=== PATIENT | male | born 1950 | race Caucasian/White ===

== ENCOUNTER 2019-11-03 22:18 | Observation (INO) | payer OTHER ==
--- OUTSIDE RECORDS SUMMARY | 2019-11-03 22:28 | XMS REPORT | Continuity of Care Document ---
:1950 Author Organization [employer] Care Team Providers Name Role Phone [employer] Unavailable Un available Problems Problem Status Onset Classification Date Comments Sourc e Date Reported SNF Active 02/20/[address] CHOLO Active 02/20/20 [facility] BILLING [address] [place] [address] MULTIPLE CLOSED Active 02/20/20 [place] LEFT SIDE RIBS [facility] FEVER Active 10/29/[address] LEFT CHEST SOFT Active 10/29/19 [facility] [place] TISSUE ABSCESS 15 [facility] EMPYEMA Active 10/13/[address] MULT RIB FX Active 09/20/[address] Multiple 02/24/2017 [facility] fractures of Medical ribs, left side, [address] initial encounter for closed fracture Diabetes Resolved Problem 02/24/2017 [facility] mellitus Medical (disorder) Center Hypertensive Resolved Problem 02/24/2017 [facility] as disorder, Medical systemic Center arterial (disorder) Final: 11/12/2014 [facility] MULTIPLE Active [facility] FRACTURES OF Medical RIBS, LEFT SIDE, [place] [place] [facility] [facility] EMPYEMA W/O Active [facility] FISTULA [facility] CELLULITIS NOS Active [facility] Medications Medication Details Route Status Patient Ordering Order Source Instructions Provider Date tramadol 50 mg = 1 tab, Active 02/21/ [place] hydrochloride 50 PO, Q6H, PRN 2016 Md dical MG Oral Tablet Pain, X 7 day, # Center 28 tab, 0 Refill(s) acetaminophen 1,000 mg = 2 Active 02/21/ [facility] [place] 500 mg oral tab, PO, Q6H, X 2017 Medi [place] tablet 7 day, # 56 tab, Center 0 Refill(s) atorvastatin Notes: (Same As: No Longer 02/21/ [facility] Lipitor) Active [address] [place] [address] tramadol 50 mg 50 mg, 1 tab, No Longer /07/ [facility] [place] oral tablet Route: PO, Drug Active 2016 [facility] [place] form: TAB, Q6H, Center Dosing Weight 102.273, kg, Start date: 02/20/17 18:00:00 CDT, Duration: 30 day, Stop date: 03/22/17 12:00:00 CDT heparin Notes: porcine [place]er [place] heparin Active 2017 [facility] Insulin regular 60 units) No Longer [place] WASTE: F/P - Active 2017 [facility] Black; E - Center Municipal Trash Bin Stable for 28 days at room temperature Expires in days from Da te Dextrose 50% 12.5 gm, 25 mL, No Longer H [place] Syringe Route: IVP, Drug Active 2016 Medical Form: INJ, Center Dosing Weight 102.273, kg, PRN, PRN Blood Glucose Results, Start date: 02/20/17 14:20:00 CDT, Duration: 30 day, Stop date: 03/22/17 14:19:00 CDT Glucagon 1 mg, Route: IM, No Longer [place] Drug form: Active 2016 Medical PDR/INJ, PRN, Center Dosing Weight 102.273, kg, PRN Blood Glucose Results, Start date: 02/20/17 14:20:00 CDT, Duration: 30 day, Stop date: 03/22/17 14:19:00 CDT Amlodipine Notes: (Same as: No Longer [place] Norvasc) Active 2017 [facility] Docusate Sodium Notes: (Same as: No Longer 02/20 [place] 100 MG Oral Colace) (Do Not Active 2016 [facility] blanquita Capsule Crush) Center Aspirin Notes: Take with [place] Long[place] food. Active 2017 Medical [place] sennosides, INTERMEDIATE Notes: (Same as: No Longer 02/20 [place] Senokot) Active 2017 Medical [place] pantoprazole 40 mg, PO, In[place] Daily, # 30 tab, 2017 [facility] 0 Refill(s) Center metoprolol Notes: (Same as: No Longer [place] tartrate Lopressor) Active 2017 [facility] [place] Acetaminophen Notes: Max [place] acetaminophen Active 2017 Medical 4000 mg/day (4 Center gm/day). (Same as: Tylenol Extra Strength) heparin Notes: porcine [place] Longer [place] heparin Active 2016 [facility] Center tramadol Notes: Not to [place] Long[place] hydrochloride 50 exceed Active 2016 Medical MG Oral Tablet 400mg/day. (Same Center As: Ultram) Insulin Lispro 60 units) No Longer [place] WASTE: F/P - Active 2016 Medical Black; E - Center Municipal Trash Bin Stable for 28 days at room temperature. Expires in days from Da te Dextrose 50% 25 gm, 50 mL, No Longer [place] Syringe Route: IVP, Drug Active 2016 Medical Form: INJ, Center Dosing Weight 102.273, kg, PRN, PRN Blood Glucose Results, Start date: 02/19/17 13:01:00 CDT, Duration: 30 day, Stop date: 03/21/17 13:00:00 CDT Glucagon 1 mg, Route: IM, No Longer [place] Drug form: Active 2016 Medical PDR/INJ, PRN, Center Dosing Weight 102.273, kg, PRN Blood Glucose Results, Start date: 02/19/17 13:01:00 CDT, Duration: 30 day, Stop date: 03/21/17 13:00:00 CDT Insulin Glargine 50 unit, SUB-Q, Active [place] 100 UNT/ML QAM, 0 Refill(s) 2016 [facility] Injectable Center Solution [Lantus] amLODIPine 10 mg 10 mg = 1 tab, Active [place] oral tablet PO, Daily, # 90 2017 [facility] blanquita tab, 1 Refill(s) [place] metoprolol 50 mg = 1 tab, Active [facility] [place] [facility] as tartrate 50 mg PO, BID, # 180 2017 Md dical oral tablet tab, 0 Refill(s) [facility] Hydralazine Notes: (Same as: No Longer [facility] Apresoline) Push Active 2016 Medical over 5 minutes Center Lovenox 30 mg, Route: Inactive [place] SUB-Q, Drug 2016 Medical form: INJ, Q12H, Center Dosing Weight 102.273, kg, Priority: STAT, Start date: 02/19/17 12:20:00 CDT, Duration: 30 day, Stop date: 03/21/17 9:00:00 CDT Oxycodone Notes: (Same as: No Longer [facility] Hydrochloride 5 Roxicodone) Active 2016 Medi [place] MG Oral Tablet Center Dilaudid Notes: Same as: Inactive [place] as Dilaudid 2017 [facility] NS (Bolus) IV 1,000 mL, 1,000 Inactive [place] ml/hr, Infuse 2017 Medical Over: 1 hr, Center Route: IV, 1,000, Drug form: INJ, ONCE, Priority: STAT, Dosing Weight 102.273 kg, Start date: 02/19/17 11:23:00 CDT, Duration: 1 doses or times, Stop date: 02/19/17 11:23:00 CDT Morphine Notes: (Same Inactive [facility] as:MORPhine 2017 Medical Sulfate) Center Zofryogesh Notes: (Same as: Inactive [place] Zofran) 2017 Medical MEDICATION WASTE Center Product Size: 4 mg Product Wasted: ___ mg iodixanol Notes: (Same as: Inactive [place] Visipaque). 2017 Medical WASTE: F/P - Center Black; E - Municipal Trash Bin Saline Flush Notes: Same as: No Longer [place] 0.9% BD Posiflush Active [facility] [place] tramadol Special Active [facility] hydrochloride 50 Instructions: 2014 edical MG Oral Tablet 1-2 tab PO Q6H Ce ntmali senna 8.6 mg 8.6 mg = 1 tab, Active [facility] oral tablet PO, Daily, 0 2014 Medical Refill(s) [place] POLYETHYLENE PO, Daily, 0 Active [place] as GLYCOL 3350 Refill(s) [address] [place] [address] Acetaminophen Special Active [facility] 325 MG / Instructions: 2014 Medical Hydrocodone not to exceed 8 Cent er Bitartrate 7.5 tablets/day MG Oral Tablet [[place] 7.5/325] gabapentin 300 600 mg = 2 cap, Active [place] MG Oral Capsule PO, Q8H, # 120 2014 edical cap, 0 Refill(s) Center PlasmaLyte A 1,000 mL, Rate: No Longer [facility] PH-7.4 1,000 mL 100 ml/hr, Active 2014 Medic al Infuse over: 10 Center hr, Route: IV, Dosing Weight 84.091 kg, Total Volume: 1,000, Start date: 11/05/14 0:01:00, Duration: 30 day, Stop date: 12/05/14 0:00:00 Tums Notes: (Same As: [place] Long[place] Tums) Calcium Active 2014 Medical Carbonate 500 mg Center = 200 mg elemental calcium Dose = mg calcium carbonate ( mg elemental calcium) Neutra-Phos Notes: (Same as: No Longer [facility] Neutra-Phos) Active 2014 Medical Each 1.25 gm pkt Center has 250mg phosphorous. Mag-Ox 400 Notes: (Same as: No Longer [facility] Mag-Ox 400) Active 2014 [facility] Magnesium oxide Center [id number] elemental magnesium Dose=____mg magnesium oxide (___mg elemental magnesium) Neutra-Phos 1 pkt, Route: No Longer [place] PO, Dosing Active 2014 Medical Weight 84.091, Center kg, BID-Meals, Start date: 11/03/14 8:00:00, Duration: 30 day, Stop date: 12/02/14 17:00:00 Morphine 2 mg, Route: Inactive [place] IVP, Q5Min, 2014 Medical Dosing Weight Center 84.091, kg, PRN Pain Score 4-6, Start date: 11/02/14 20:50:00, Duration: 5 doses or times, Stop date: Limited # of times Labetalol 10 mg, Route: Inactive [place] IVP, Q5Min, 2014 Medical Dosing Weight Center 84.091, kg, PRN Elevated BP, Start date: 11/02/14 20:50:00, Duration: 5 doses or times, Stop date: Limited # of times Ondansetron 4 mg, Route: Inactive [place] IVP, ONCE, 2014 Medical Dosing Weight Center 84.091, kg, PRN Nausea & Vomiting, Start date: 11/02/14 20:50:00 Naloxone 0.04 mg, Route: Inactive [place] IVP, Q2MIN, 2014 Medical Dosing Weight Center 84.091, kg, PRN Narcotic Reversal, Start date: 11/02/14 20:50:00, Duration: 8 doses or times, Stop date: Limited # of times Flumazenil 0.2 mg, Route: [place] IVP, PRN, Dosing 2014 Medical Weight 84.091, Center kg, PRN Benzodiazepine Reversal, Initial dose, Start date: 11/02/14 20:50:00, Duration: 30 day, Stop date: 12/02/14 20:49:00 Cefazolin 2 gm, Route: IV, Inactive [place] ONCE, Dosing 2014 Medical Weight 84.091, Center kg, Start date: 11/02/14 20:03:00, Duration: 1 doses or times, Stop date: 11/02/14 20:03:00 PlasmaLyte A 1,000 mL, Rate: Inactive [place] PH-7.4 1,000 mL 100 ml/hr, 2014 Medic al Infuse over: 10 Center hr, Route: IV, Dosing Weight 84.091 kg, Total Volume: 1,000, Start date: 11/02/14 0:01:00, Duration: 30 day, Stop date: 12/02/14 0:00:00 Ancef + Sodium Notes: (Same As: No Longer [place] Chloride 0.9% IV Ancef, Kefzol) Active 2014 Medical 100 mL Cefazolin FOR Center IV SET ONLY MEDICATION WASTE Product Size: 1000 mg Product Wasted: ___ mg sodium phosphate 15 mmol, 5 mL, Inactive [place] + Sodium Route: IVPB, 2014 Medical Chloride 0.9% IV ONCE, Dosing Ce nter 250 mL Weight 84.091, kg, Start date: 11/01/14 12:02:00, Stop date: 11/01/14 12:02:00 Magnesium 2 gm, 50 mL, Inactive [place] Sulfate Route: IVPB, 2014 Medical Drug form: INJ, Center Q2H, Dosing Weight 84.091, kg, Total dose = 4 gm, Start date: 11/01/14 10:00:00, Stop date: 11/01/14 13:59:00 sennosides, INTERMEDIATE 1 tab, Route: No Longer [place] PO, Drug Form: Active 2014 Medical TAB, Dosing Center Weight 84.091, kg, Daily, Start date: 11/01/14 9:00:00, Duration: 30 day, Stop date: 11/30/14 9:00:00 Bisacodyl Notes: (Same As: Inactive [place] Dulcolax, 2014 [facility] Bisco-Lax) Center Acetaminophen Notes: Same as No Longer [facility] 325 MG / [place] 325-7.5mg Active 2014 Medical Hydrocodone Do not exceed Cente r Bitartrate 7.5 4gm/day of MG Oral Tablet acetaminophen. [[place] 7.5/325] Acetaminophen Notes: Same as No Longer [facility] 325 MG / [place] 325-7.5mg Active 2014 Medical Hydrocodone Do not exceed Cente r Bitartrate 7.5 4gm/day of MG Oral Tablet acetaminophen. [[place] 7.5/325] magnesium 2 gm, 50 mL, Inactive [place] sulfate Route: IVPB2014 Medical Drug form: INJ, Center ONCE, Dosing Weight 84.091, kg, Total dose = 4 gm, Start date: 10/31/14 16:46:00, Stop date: 10/31/14 16:46:00 Magnesium 2 gm, 50 mL, Inactive [place] Sulfate Route: IVPB2014 Medical Drug form: INJ, Center Q2H, Dosing Weight 84.091, kg, Total dose = 4 gm, Start date: 10/31/14 10:00:00, Stop date: 10/31/14 13:59:00 Ondansetron Notes: (Same as: Inactive [facility] Zofran) 2014 Medical MEDICATION WASTE Center Product Size: 4 mg Product Wasted: ___ mg Naloxone Notes: Same as [place] Narcan [address] [place] [address] Hydromorphone Notes: Same as: Inactive [facility] Dilaudid 2014 [facility] Flumazenil Notes: (Same as: Inactive [place] Romazicon) 2015 Medical Center Meperidine 12.5 mg, Route: Inactive [place] IVP, Q30Min, 2014 Medical Dosing Weight Center 84.091, kg, PRN Other -See Comment, For shivering, Start date: 10/31/14 9:02:00, Duration: 2 doses or times, Stop date: Limited # of times Labetalol 10 mg, Route: Inactive [place] IVP, Q5Min, 2014 Medical Dosing Weight Center 84.091, kg, PRN Elevated BP, Start date: 10/31/14 9:02:00, Duration: 5 doses or times, Stop date: Limited # of times esmolol 10 mg, Route: Inactive [place] IVP, Q5Min, 2014 Medical Dosing Weight Center 84.091, kg, PRN Other -See Comment, Start date: 10/31/14 9:02:00, Duration: 5 doses or times, Stop date: Limited # of times Hydralazine Notes: (Same as: Inactive [place] Apresoline) Push 2014 Medical over 5 minutes Center micafungin Notes: Same as No Longer Let[place]ia barajas Mycamine Protect Active 2014 Medical from light Center MEDICATION WASTE Product Size: 100 mg Product Wasted: ___ mg sodium phosphate 30 mmol, 10 mL, Inactive [place] + Sodium Route: IVPB, 2014 Medical Chloride 0.9% IV ONCE, Dosing Ce nter 250 mL Weight 84.091, kg, Start date: 10/31/14 8:35:00, Stop date: 10/31/14 8:35:00 Calcium 2,000 mg, 20 mL, Inactive [place] as Gluconate Route: IVPB, 2014 Medical ONCE, Dosing Center Weight 84.091, kg, Start date: 10/31/14 8:34:00, Stop date: 10/31/14 8:34:00 sennosides, INTERMEDIATE Notes: (Same as: No Longer 10/30 [place] Senokot) Active 2014 Medical Center Vancomycin 2001 mg: infuse No Longer [place] over 2.5 hours Active 2014 Medical MEDICATION Center WASTE Product Size: 1000 mg Product Wasted: ___ mg Bisacodyl Notes: (Same As: No Longer [place] Dulcolax, Active 2014 Medical Bisco-Lax) Center Magnesium 2 gm, 50 mL, Inactive [place] Sulfate Route: IVPB2014 Medical Drug form: INJ, Center Q2H, Dosing Weight 84.091, kg, Total dose = 4 gm, Start date: 10/30/14 10:00:00, Stop date: 10/30/14 13:59:00 Calcium 1,000 mg, 10 mL, Inactive [place] Gluconate Route: IVPB, 2014 Medical ONCE, Dosing Center Weight 84.091, kg, Start date: 10/30/14 9:45:00, Stop date: 10/30/14 9:45:00 sodium phosphate 15 mmol, 5 mL, Inactive [place] + Sodium Route: IV2014 Medical Chloride 0.9% IV ONCE, Dosing Ce nter 250 mL Weight 84.091, kg, Start date: 10/30/14 9:44:00, Stop date: 10/30/14 9:44:00 PlasmaLyte A 1,000 mL, Rate: No Longer [facility] PH-7.4 1,000 mL 100 ml/hr, Active 2014 Medic al Infuse over: 10 Center hr, Route: IV, Dosing Weight 84.091 kg, Total Volume: 1,000, Start date: 10/30/14 0:01:00, Duration: 30 day, Stop date: 11/29/14 0:00:00 Lantus Notes: Same as No Longer [place] [facility] Lantus Solostar Active 2014 Medical PEN Do not hold Center insulin without contacting prescriber "single patient use only" Stable for 28 days at room temperature. Expires in days from Da te ferrous sulfate Notes: Give with No Longer 10/29 [place] food. "Do Not Active 2014 Medical Crush" Center Aspirin Notes: Take with [place] Longer [place] food. Active 2014 Medical [place] Docusate Sodium Notes: (Same as: No Longer 10/29 [place] 100 MG Oral Colace) (Do Not Active 2014 Medi [place] Capsule [Colace] Crush) Center Miralax Notes: Dissolve No Longer [place] as in 8 oz of water Active 2014 Medical or juice. (Same Center as: Miralax) quinapril 40 mg, Route: No Longer [place] as PO, Drug form: Active 2014 Medical TAB, Daily, Center Dosing Weight 84.091, kg, Start date: 10/29/14 9:00:00, Duration: 30 day, Stop date: 11/27/14 9:00:00 Altace Notes: (Same No Longer [place] as:Altace) Active 2014 Medical Center Dextrose 50% 12.5 gm, Route: Inactive [place] Syringe IVP, Dosing 2014 Medical Weight 84.091, Center kg, ONCE, Start date: 10/29/14 1:24:00, Stop date: 10/29/14 1:24:00 Ondansetron Notes: (Same as: Inactive [place] Zofran) 2014 Medical MEDICATION WASTE Center Product Size: 4 mg Product Wasted: ___ mg Naloxone Notes: Same as No Longer [place] Narcan Active 2014 [facility] Center Metoprolol Notes: (Same as: No Longer [place] Lopressor) Push Active 2014 [facility] over 2 minutes Center Hydromorphone Notes: Same as: No Longer [place] Dilaudid Active 2014 [facility] Center Flumazenil Notes: (Same as: No Longer [place] Romazicon) Active 2014 Medical Center Acetaminophen Notes: (Same as: No Longer [place] 325 MG / [place] 325/5) Active 2014 Medical Hydrocodone Center Bitartrate 5 MG Oral Tablet [[place] 5/325] gabapentin 600 Notes: (Same as: No Longer [facility] MG Oral Tablet Neurontin) Active 2014 Medica l Center Acetaminophen Notes: (Same as: No Longer [place] 325 MG / [place] 325/5) Do Active 2014 Medica l Hydrocodone not exceed Center Bitartrate 5 MG 4gm/day of Oral Tablet acetaminophen. [[place] 5/325] Tramadol Notes: Not to [place] exceed Active 2014 Medical 400mg/day. (Same Center As: Ultram) Flagyl Notes: (Same as: [place] Long[place] Flagyl) Avoid Active 2014 Medical alcohol. Center cefepime Notes: (Same As: No Longer [facility] [place] Maxipime) Active 2014 Medical MEDICATION WASTE Center Product Size: 1000 mg Product Wasted: ___ mg Vancomycin 2001 mg: infuse No Longer [place] over 2.5 hours Active 2014 Medical MEDICATION Center WASTE Product Size: 1000 mg Product Wasted: ___ mg atorvastatin Notes: (Same As: No Longer [facility] Lipitor) Active 2014 Medical Center Enoxaparin Notes: (Same as: No Longer [facility] Lovenox) Active 2014 Medical Center metoprolol Notes: (Same as: No Longer [facility] tartrate Lopressor) Active 2014 Medical Center Dilaudid Notes: (Same as: No Longer [facility] Dilaudid) Active 2014 Medical Center D5W 1/2NS + KCL Notes: PREMIX No Longer [place] 20mEq/L 1000ml IV - Do Not Active 2014 Medic al (Premix) 1000 mL [facility] Center PlasmaLyte A 1,000 mL, Rate: Inactive [place] PH-7.4 1000 mL 125 ml/hr, 2014 Medica l Infuse over: 8 Center hr, Route: IV, Dosing Weight 84.091 kg, Total Volume: 1,000, Start date: 10/28/14 20:35:00, Duration: 30 day, Stop date: 11/27/14 20:34:00 Insulin regular 60 units) No Longer [facility] Stable for 28 Active 2014 Medical days at room Center temperature Expires in days from Da te Dextrose 50% 12.5 gm, Route: Inactive [facility] Syringe IVP, Dosing 2014 Medical Weight 84.091, Center kg, ONCE, STAT, Start date: 10/28/14 20:29:00, Stop date: 10/28/14 20:29:00 D5NS 1000 mL 1,000 mL, Rate: Inactive [place] 100 ml/hr, 2014 Medical Infuse over: 10 Center hr, Route: IV, Dosing Weight 84.091 kg, Total Volume: 1,000, Start date: 10/28/14 20:11:00, Duration: 30 day, Stop date: 11/27/14 20:10:00 Dilaudid Notes: Same as: Inactive [place] Dilaudid 2014 [facility] Epinephrine 0.01 1 ml, Route: No Longer [place] MG/ML / SUB-Q, Drug Active 2014 Medical Lidocaine Form: SOLN, [place] Hydrochloride 10 Dosing Weight MG/ML Injectable 84.091, kg, Solution ONCE, STAT, Start date: 10/28/14 18:22:00, Stop date: 10/28/14 18:22:00 Iohexol Special Inactive [place] Instructions: 2015 Medical Dose = 2.2ml/kg, [place] Max dose = 100ml -- "To be infused by Radiology Staff ONLY" senna 8.6 mg Special Active [place] oral tablet Instructions: 2014 Medica l with plenty of Center water cephalexin 500 Special Active [facility] mg oral capsule Instructions: 2014 Md dical take for the [place] next 5 days metoprolol 25 mg = 1 tab, Active [place] as tartrate 25 mg PO, Q12H, 0 2014 Medic al oral tablet Refill(s) [place] Acetaminophen Special Active [place] 325 MG / Instructions: 2014 Medical Hydrocodone 1-2 tab PO Q4-6H [address] [facility] Bitartrate 5 MG prn pain not to Oral Tablet exceed 8 [[place] 5/325] tablets/day Neutra-Phos Notes: (Same as: Inactive [place] Neutra-Phos) 2014 Medical Each 1.25 gm pkt Center has 250mg phosphorous. Mix w/2.5oz water and stir. Keflex Notes: Take on [place] empty stomach. Active 2014 Medical (Same As: [place] Keflex) Ancef + Sodium Notes: (Same As: No Longer [place] Chloride 0.9% IV Ancef, Kefzol) Active 2014 Medical 100 mL Cefazolin FOR Center IV SET ONLY MEDICATION WASTE Product Size: 1000 mg Product Wasted: ___ mg Insulin, Aspart, Notes: Roll in No Longer [place] Human palms of hands Active 2014 Medical gently; Do not Center shake vigorously. (Same as: NovoLOG) "single patient use only" Stable for 28 days at room temperature. Expires in days from Da te Dextrose 50% 25 gm, 50 mL, No Longer [place] Syringe Route: IVP, Drug Active 2014 Medical Form: INJ, Center Dosing Weight 86.364, kg, PRN, PRN Blood Glucose Results, Start date: 10/17/14 14:49:00, Duration: 30 day, Stop date: 11/16/14 14:48:00 Glucagon 1 mg, Route: IM, No Longer [place] Drug form: Active 2014 Medical PDR/INJ, PRN, Center Dosing Weight 86.364, kg, PRN Blood Glucose Results, Start date: 10/17/14 14:49:00, Duration: 30 day, Stop date: 11/16/14 14:48:00 Neutra-Phos Notes: (Same as: No Longer [facility] Neutra-Phos) Active 2014 Medical Each 1.25 gm pkt Center has 250mg phosphorous. Mix w/2.5oz water and stir. celecoxib Notes: NSAID. No Longer [place] as Please check Active 2014 Medical indication. Not Center for seizure. (Same As: CeleBREX ) tramadol 2 tab, Route: Inactive [place] hydrochloride 50 PO, Drug form: 2015 Medical MG Oral Tablet TAB, Q6H, Dosing Center Weight 86.364, kg, Start date: 10/16/14 12:00:00, Duration: 30 day, Stop date: 11/15/14 6:00:00 ketOROLAC 30 4 days Inactive [place] mg/mL injectable MEDICATION WASTE 2014 Medical solution Product Center Size: 30 mg Product Wasted: ___ mg potassium Notes: (Same as: Inactive [place] phosphate + K Phosphate.) 1 2014 Med ical Sodium Chloride mMol phoshate Ce nter 0.9% IV 250 mL has 1.47 mEq potassium Infuse over 4 hours Vancomycin 2001 mg: infuse No Longer [facility] over 2.5 hours [address] [address] metoprolol Notes: (Same as: No Longer [facility] tartrate Lopressor) Active [address] [place] [address] Dilaudid Notes: Same as: Inactive [place] as Dilaudid [address] [place] [address] Dilaudid Notes: Same as: Inactive [place] as Dilaudid [address] [place] [address] Insulin Glargine Notes: Same as No Longer [facility] Lantus Solostar Active 2014 [facility] PEN Do not hold Center insulin without contacting prescriber "single patient use only" Stable for 28 days at room temperature. Expires in days from Da te vancomycin 2001 mg: infuse No Longer [facility] over 2.5 hours Active [address] [place] [address] senna 8.6 mg Notes: (Same as: No Longer [facility] oral tablet Senokot) Active [address] [place] [address] ketOROLAC 15 4 days. No Longer [facility] mg/mL injectable Active [address] [place] [address] vancomycin 2001 mg: infuse No Longer [facility] over 2.5 hours Active [facility] Medical MEDICATION Center WASTE Product Size: 1000 mg Product Wasted: _0__ mg atorvastatin Notes: (Same As: No Longer [facility] Lipitor) Active [address] [place] [address] Acetaminophen Notes: (Same as: No Longer [facility] 325 MG / [place] 325/5) Do Active 2014 Medica l Hydrocodone not exceed Center Bitartrate 5 MG 4gm/day of Oral Tablet acetaminophen. [[place] 5/325] bupivacaine Notes: (Same as: Inactive [facility] liposome Exparel) 2015 [facility] NOT FOR IV Center use Postoperative analgesia: Infiltration (local): Dose is based on surgical site and volume required to cover the area (in general, the maximum total dose is 266 mg). Bunionectomy: 7 mL into the tissues surrounding the osteotomy and 1 mL into the subcutaneous tissue of the surgical site (total dose = 8 mL [106 mg]) Hemorrhoidectomy : 30 mL (20 mL vial diluted with 10 mL NS) divided and administered as 6 injections of 5 mL each (total dose = 30 mL [266 mg]) quinapril 40 mg, Route: [place] PO, Drug form: 2015 Medical TAB, Daily, Center Dosing Weight 86.364, kg, Start date: 10/13/14 9:00:00, Duration: 30 day, Stop date: 11/11/14 9:00:00 ferrous sulfate Notes: Give with No Longer 10/13 [facility] food. "Do Not Active 2014 Medical Crush" Center Docusate Sodium Notes: (Same as: No Longer 10/13 [facility] 100 MG Oral Colace) (Do Not Active 2014 [facility] blanquita Capsule [Colace] Crush) [place] Vancomycin 6.67 2001 mg: infuse Inactive [facility] MG/ML Injectable over 2.5 hours 2015 Medical Solution MEDICATION Center WASTE Product Size: 1000 mg Product Wasted: ___ mg Altace Notes: (Same No Longer [facility] as:Altace) Active [facility] Medical Center Promethazine Notes: Do not Inactive [facility] [place] give IV push. 2015 Medical (Same as: Center Phenergan) Ondansetron Notes: (Same as: Inactive [facility] Zofran) [facility] Medical MEDICATION WASTE Center Product Size: 4 mg Product Wasted: ___ mg Naloxone Notes: (Same as: Inactive [place] Narcan) [address] [place] [address] Flumazenil Notes: (Same as: Inactive [facility] Romazicon) [address] [place] [address] Hydromorphone Notes: Same as: Inactive 10/13[facility] Dilaudid [facility] Medical Center Labetalol 10 mg, 2 mL, Inactive [facility] Route: IVP, Drug 2015 Medical form: INJ, Center Q5Min, Dosing Weight 86.364, kg, PRN Elevated BP, Start date: 10/13/14 8:34:00, Duration: 5 doses or times, Stop date: 10/14/14 0:00:00 Hydralazine Notes: (Same as: Inactive [facility] Apresoline) Push 2015 Medical over 5 minutes Center gabapentin 300 Notes: (Same as: No Longer [place] MG Oral Capsule Neurontin) Active 2014 Medic al Center tramadol Notes: (Same As: No Longer [place] hydrochloride 50 Ultram) Active 2014 Medical MG Oral Tablet Center Acetaminophen Notes: (Same as: No Longer [place] 325 MG / [place] 325/10) Active 2014 [facility] Hydrocodone Center Bitartrate 10 MG Oral Tablet [[place] 10/325] Insulin, Aspart, Notes: Roll in No Longer [place] Human palms of hands Active 2014 Medical gently; Do not Center shake vigorously. (Same as: NovoLOG) "single patient use only" Stable for 28 days at room temperature. Expires in days from Da te Dextrose 50% 12.5 gm, 25 mL, No Longer [facility] Syringe Route: IVP, Drug Active 2014 Medical Form: INJ, Center Dosing Weight 86.364, kg, PRN, PRN Blood Glucose Results, Start date: 10/13/14 5:21:00, Duration: 30 day, Stop date: 11/12/14 5:20:00 Glucagon 1 mg, Route: IM, No Longer [place] Drug form: Active 2014 Medical PDR/INJ, PRN, Center Dosing Weight 86.364, kg, PRN Blood Glucose Results, Start date: 10/13/14 5:21:00, Duration: 30 day, Stop date: 11/12/14 5:20:00 Enoxaparin Notes: (Same as: No Longer [place] Lovenox) Active 2014 Medical [place] cefepime Notes: (Same As: Inactive [place] Maxipime) 2014 [facility] MEDICATION WASTE Center Product Size: 1000 mg Product Wasted: ___ mg Insulin regular 60 units) No Longer [place] Stable for 28 Active 2014 Medical days at room Center temperature Expires in days from Da te Saline Flush Notes: (Same as: No Longer [place] 0.9% BD Posiflush) Active 2014 [facility] Dilaudid Notes: Same as: Inactive [place] as Dilaudid [address] [place] [address] Sodium Chloride 250 mL, Rate: On No Longer 10/13 [place] 0.9% (titrate) call for use Active 2014 Medi [place] 250 mL with blood Center product administration, Dosing Weight 86.364, kg, Route: IV, Total Volume: 250, Start Date: 10/13/14 2:44:00, Duration: 1 day, Stop date: 10/14/14 2:43:00, Replace Every: 24 hr Iohexol Special Inactive [place] Instructions: 2015 Medical Weight = 75 - Center 94kg -- "To be infused by Radiology Staff ONLY" Dilaudid Notes: Same as: Inactive [place] Dilaudid [address] [place] [address] Sodium Chloride 1,000 mL, 1,000 Inactive [place] 0.154 MEQ/ML ml/hr, Infuse 2015 Medic al Injectable Over: 1 hr, Center Solution Route: IV, 1,000, Drug form: INJ, ONCE, Priority: STAT, Dosing Weight 86.364 kg, Start date: 10/13/14 0:25:00, Duration: 1 doses or times, Stop date: 10/13/14 0:25:00 Maxipime Notes: (Same As: No Longer [place] Maxipime) Active 2014 Medical MEDICATION WASTE Center Product Size: 1000 mg Product Wasted: _0__ mg tramadol 100 mg = 2 tab, Active [place] s hydrochloride 50 PO, Q6H, # 90 2014 edical MG Oral Tablet tab, 1 Refill(s) Center Acetaminophen 1 tab, PO, Q6H, Active [place] 325 MG / # 60 tab, 0 2014 Medical Hydrocodone Refill(s), given [address] ter Bitartrate 10 MG to patient Oral Tablet [[place] 10/325] 0.8 mg = 1 tab, Active [place] Multivitamins PO, Daily, # 60 2015 Md dical with Folic Acid tab, 0 Center 0.8 mg oral Refill(s), given tablet to patient insulin glargine 40 unit, SUB-Q, Active [place] 100 units/mL QAM, # 10 mL, 0 2014 Med ical subcutaneous Refill(s) Center solution gabapentin 300 600 mg = 2 cap, Active H [place] MG Oral Capsule PO, Q8H, # 120 2014 edical cap, 0 Refill(s) Center ferrous sulfate 325 mg = 1 tab, Active [place] 325 mg oral PO, TID, # 90 2014 Medica l enteric coated tab, 0 Refill(s) Center tablet Docusate Sodium Special Active [place] 100 MG Oral Instructions: 2014 Medica l Capsule [Colace] take twice daily Center while taking [place] or tramadol for pain Metformin 1,000 mg = 1 Active [place] hydrochloride tab, PO, BID, # 2015 Me dical 1000 MG Oral 60 tab, 0 Center Tablet Refill(s) Acetaminophen Notes: Do not Inactive [place] 325 MG / exceed 4gm/day 2015 Medical Hydrocodone of Center Bitartrate 10 MG acetaminophen. Oral Tablet (Same as: [place] [[place] 10/325] 325/10) Acetaminophen Notes: (Same as: Inactive [place] 325 MG / [place] 325/5) Do 2014 Medica l Hydrocodone not exceed Center Bitartrate 5 MG 4gm/day of Oral Tablet acetaminophen. [[place] 5/325] Acetaminophen Notes: Do not No Longer [facility] 325 MG / exceed 4gm/day Active 2014 Medical Hydrocodone of Center Bitartrate 10 MG acetaminophen. Oral Tablet (Same as: [place] [[place] 10/325] 325/10) Acetaminophen Notes: Do not No Longer [facility] 325 MG / exceed 4gm/day Active 2014 Medical Hydrocodone of Center Bitartrate 10 MG acetaminophen. Oral Tablet (Same as: [place] [[place] 10/325] 325/10) Insulin, Aspart, Notes: Roll in No Longer [place] Human palms of hands Active 2015 Medical gently; Do not Center shake vigorously. (Same as: NovoLOG) "single patient use only" Stable for 28 days at room temperature. Expires in days from Da te Magnesium Oxide Notes: (Same as: Inactive [place] Mag-Ox 400) 2014 Medical Magnesium oxide Center [id number] elemental magnesium Dose=____mg magnesium oxide (___mg elemental magnesium) Milk of Magnesia 60 ml, Route: Inactive [place] PO, Drug Form: 2014 Medical SUSP, Dosing Center Weight 88.636, kg, ONCE, Start date: 10/05/14 8:26:00, Stop date: 10/05/14 8:26:00 sodium phosphate 15 mmol, 5 mL, No Longer [place] + Sodium Route: IVPB, Active 2014 Medical Chloride 0.9% IV PRN, Dosing [address] 250 mL Weight 88.636, kg, PRN Abnormal Lab Result, Start date: 10/05/14 8:25:00, Duration: 30 day, Stop date: 11/04/14 8:24:00 Insulin, Aspart, Notes: Roll in No Longer [place] Human palms of hands Active 2014 Medical gently; Do not Center shake vigorously. (Same as: NovoLOG) "single patient use only" Stable for 28 days at room temperature. Expires in days from Da te Oxycodone Notes: (Same as: No Longer [facility] Hydrochloride 5 Roxicodone) Active 2014 Medi [place] MG Oral Tablet Center Acetaminophen Notes: . (Same No Longer [facility] as: Tylenol Active 2014 Medical Extra Strength) Center Insulin, Aspart, Notes: Roll in No Longer [place] Human palms of hands Active 2014 Medical gently; Do not Center shake vigorously. (Same as: NovoLOG) "single patient use only" Stable for 28 days at room temperature. Expires in days from Da te Oxycodone Notes: (Same as: No Longer [facility] Hydrochloride 5 Roxicodone) Active 2014 Medi [place] MG Oral Tablet Center Oxycodone Notes: (Same as: No Longer [facility] Hydrochloride 5 Roxicodone) Active 2014 Medi [place] MG Oral Tablet Center quinapril 40 mg, Route: No Longer [place] as PO, Drug form: Active 2014 Medical TAB, Daily, Center Dosing Weight 88.636, kg, Start date: 10/04/14 9:00:00, Duration: 30 day, Stop date: 11/02/14 9:00:00 Altace Notes: (Same No Longer [facility] as:Altace) Active 2014 [facility] Center atorvastatin Notes: (Same As: No Longer [place] Lipitor) Active 2014 [facility] Neutra-Phos Notes: (Same as: No Longer 10/03/ [facility] Neutra-Phos) Active 2014 [facility] Each 1.25 gm pkt Center has 250mg phosphorous. Mix w/2.5oz water and stir. Dulcolax Notes: (Same As: [place]active [place] Laxative Dulcolax, 2014 [facility] Bisco-Lax) Center Insulin, Aspart, Notes: Roll in No Longer [facility] Human palms of hands Active 2014 [facility] gently; Do not Center shake vigorously. (Same as: NovoLOG) "single patient use only" Stable for 28 days at room temperature. Expires in days from Da te Insulin, Aspart, Notes: Roll in No Longer [place] Human palms of hands Active 2014 [facility] gently; Do not Center shake vigorously. (Same as: NovoLOG) "single patient use only" Stable for 28 days at room temperature. Expires in days from Da te Insulin, Aspart, 7 unit, Route: No Longer [facility] Human SUB-Q, Drug Active 2014 Medical form: YENI, Mili TID-Before Meals, Dosing Weight 88.636, kg, Start date: 10/02/14 7:30:00, Duration: 30 day, Stop date: 10/31/14 16:30:00 Insulin, Aspart, Notes: Roll in No Longer [facility] Human palms of hands Active 2014 [facility] gently; Do not Center shake vigorously. (Same as: NovoLOG) "single patient use only" Stable for 28 days at room temperature. Expires in days from Da te Dilaudid Notes: Same as: [place] Longer [place] Dilaudid Active 2014 Medical Center Dilaudid Notes: Same as: Inactive [place] as Dilaudid 2014 [facility] Center Fentanyl Notes: (Same as: [place] Sublimaze) [address] [place] [address] Preservative Center free. Hydromorphone Notes: Same as: Inactive H [place] Dilaudid 2015 Medical Center Ondansetron Notes: (Same as: Inactive [facility] Zofran) 2014 Medical MEDICATION WASTE Center Product Size: 4 mg Product Wasted: ___ mg Flumazenil Notes: (Same as: Inactive [facility] Romazicon) 2014 [facility] Center Naloxone Notes: Same as Inactive [place] Narcan 2014 [facility] Hydralazine Notes: (Same as: Inactive [facility] Apresoline) Push 2014 Medical over 5 minutes Center Labetalol 10 mg, 2 mL, Inactive [facility] Route: IVP, Drug 2014 Medical form: INJ, Center Q5Min, Dosing Weight 88.636, kg, PRN Elevated BP, Start date: 09/30/14 20:01:00, Duration: 5 doses or times, Stop date: Limited # of times Metoprolol Notes: (Same as: Inactive [facility] Lopressor) Push 2014 Medical over 2 minutes Center bupivacaine Notes: (Same as: Inactive [facility] liposome Exparel) 2014 Medical NOT FOR IV Center use Postoperative analgesia: Infiltration (local): Dose is based on surgical site and volume required to cover the area (in general, the maximum total dose is 266 mg). Bunionectomy: 7 mL into the tissues surrounding the osteotomy and 1 mL into the subcutaneous tissue of the surgical site (total dose = 8 mL [106 mg]) Hemorrhoidectomy : 30 mL (20 mL vial diluted with 10 mL NS) divided and administered as 6 injections of 5 mL each (total dose = 30 mL [266 mg]) Insulin, Aspart, Notes: Roll in No Longer [facility] Human palms of hands Active 2014 Medical gently; Do not Center shake vigorously. (Same as: NovoLOG) "single patient use only" Stable for 28 days at room temperature. Expires in days from Da te PlasmaLyte A 1,000 mL, Rate: No Longer H [place] PH-7.4 1,000 mL 70 ml/hr, Infuse Active 2014 Medical over: 14.3 hr, Center Route: IV, Dosing Weight 88.636 kg, Total Volume: 1,000, Start date: 09/30/14 0:01:00, Stop date: 10/02/14 0:00:00 gabapentin 300 Notes: (Same as: No Longer [place] MG Oral Capsule Neurontin) Active 2014 Medic al Center Acetaminophen Notes: Do not No Longer [place] 325 MG / exceed 4gm/day Active 2014 Medical Hydrocodone of Center Bitartrate 10 MG acetaminophen. Oral Tablet (Same as: [place] [[place] 10/325] 325/10) Zosyn Notes: (Same as: [place] Longer [place] Zosyn) Dosing Active 2014 Medical based on Center Piperacillin component MEDICATION WASTE Product Size: 3375 mg Product Wasted: ___ mg PlasmaLyte A 1,000 mL, Rate: Inactive [place] PH-7.4 1,000 mL 100 ml/hr, 2015 Medic al Infuse over: 10 Center hr, Route: IV, Dosing Weight 88.636 kg, Total Volume: 1,000, bolus 500ml Plasmalyte after patient returns from CT scan, then run infusion at 100ml/h, Priority: Within 4 hours, Start date: 09/29/14 17:21:00, D... Valium Notes: (Same as: Inactive [place] as Valium) 2014 [facility] Lantus Notes: Same as No Longer [place] rosales Lantus Solostar Active 2014 Medical PEN Do not hold Center insulin without contacting prescriber "single patient use only" Stable for 28 days at room temperature. Expires in days from Da te insulin detemir Notes: Same as Inactive [place] Levemir Do not 2015 Medical hold insulin Center without contacting prescriber "single patient use only" Albuterol 0.833 Notes: (Same as: No Longer 09/29 [place] MG/ML / Duoneb) Active 2014 Medical Ipratropium [place] 0.167 MG/ML Inhalant Solution [DuoNeb] Lidocaine Notes: Apply Inactive [place] Hydrochloride only once for up 2014 M edical 0.05 MG/MG to 12 hours in a Cent er Transdermal 24-hour period Patch [Lidoderm] (12 hours on and 12 hours off). (Same as: Lidoderm) "Remove old patch before application of new patch" Acetaminophen Notes: Do not No Longer [place] 325 MG / exceed 4gm/day Active 2014 Medical Hydrocodone of [place] Bitartrate 10 MG acetaminophen. Oral Tablet (Same as: [place] [[place] 10/325] 325/10) Metformin Notes: (Same as: No Longer [place] hydrochloride Glucophage) Active 2014 Medica l 500 MG Oral Take with meal Cente r Tablet Insulin, Aspart, Notes: Roll in Inactive [place] Human palms of hands 2014 Medical gently; Do not Center shake vigorously. (Same as: NovoLOG) "single patient use only" Stable for 28 days at room temperature. Expires in days from Da te Insulin, Aspart, Notes: Roll in No Longer [place] Human palms of hands Active 2014 Medical gently; Do not Center shake vigorously. (Same as: NovoLOG) "single patient use only" Stable for 28 days at room temperature. Expires in days from Da te Glucagon 1 mg, Route: IM, No Longer [place] Drug form: Active 2014 Medical PDR/INJ, PRN, Center Dosing Weight 88.636, kg, PRN Blood Glucose Results, Start date: 09/28/14 13:46:00, Duration: 30 day, Stop date: 10/28/14 13:45:00 Dextrose 50% 25 gm, 50 mL, No Longer [place] Syringe Route: IVP, Drug Active 2014 Medical Form: INJ, Center Dosing Weight 88.636, kg, PRN, PRN Blood Glucose Results, Start date: 09/28/14 13:46:00, Duration: 30 day, Stop date: 10/28/14 13:45:00 Insulin, Aspart, Notes: Roll in Inactive [place] Human palms of hands 2014 Medical gently; Do not Center shake vigorously. (Same as: NovoLOG) "single patient use only" Stable for 28 days at room temperature. Expires in days from Da te Propranolol Notes: Give with Inactive [place] food. (Same as: 2014 Medical Inderal) Center remove patch Notes: Remove No Longer [place] patch 12 hours Active 2014 Medical after Center application each day. Neutra-Phos Notes: (Same as: No Longer H [place] Neutra-Phos) Active 2014 Medical Each 1.25 gm pkt Center has 250mg phosphorous. Mix w/2.5oz water and stir. Insulin, Aspart, Notes: Roll in No Longer [place] Human palms of hands Active 2014 Medical gently; Do not Center shake vigorously. (Same as: NovoLOG) "single patient use only" Stable for 28 days at room temperature. Expires in days from Da te Dextrose 50% 12.5 gm, 25 mL, No Longer H [place] Syringe Route: IVP, Drug Active 2014 Medical Form: INJ, Center Dosing Weight 88.636, kg, PRN, PRN Blood Glucose Results, Start date: 09/26/14 19:19:00, Duration: 30 day, Stop date: 10/26/14 19:18:00 Glucagon 1 mg, Route: IM, No Longer [place] Drug form: Active 2014 Medical PDR/INJ, PRN, Center Dosing Weight 88.636, kg, PRN Blood Glucose Results, Start date: 09/26/14 19:19:00, Duration: 30 day, Stop date: 10/26/14 19:18:00 Acetaminophen Notes: (Same as: No Longer [place] 325 MG / [place] 325/5) Do Active 2014 Medica l Hydrocodone not exceed Center Bitartrate 5 MG 4gm/day of Oral Tablet acetaminophen. [[place] 5/325] Propranolol Notes: Give with No Longer [facility] food. (Same as: Active 2014 Medical Inderal) Center PlasmaLyte A 1,000 mL, Rate: Inactive [place] PH-7.4 1,000 mL 1,000 ml/hr, 2014 Med ical Infuse over: 1 Center hr, Route: IV, Dosing Weight 88.636 kg, Total Volume: 1,000, Start date: 09/26/14 11:04:00, Duration: 1 doses or times, Stop date: 09/26/14 12:03:00 Levemir Notes: Same as No Longer [place] Levemir Do not Active 2014 Medical hold insulin Center without contacting prescriber "single patient use only" Oxycodone Notes: (Same as: Inactive [place] Hydrochloride 5 Roxicodone) 2014 Medi [place] MG Oral Tablet Center Lidocaine Notes: Apply No Longer [place] Hydrochloride only once for up Active 2014 edical 0.05 MG/MG to 12 hours in a Cent er Transdermal 24-hour period Patch [Lidoderm] (12 hours on and 12 hours off). (Same as: Lidoderm) "Remove old patch before application of new patch" celecoxib Notes: NSAID. No Longer [facility] [place] [facility] as Please check Active 2014 Medical indication. Not Center for seizure. (Same As: CeleBREX ) Tramadol Notes: Not to [place] Longer [place] exceed Active 2014 Medical 400mg/day. (Same Center As: Ultram) Oxycodone Notes: (Same as: Inactive [place] Hydrochloride 5 Roxicodone) 2014 Medi [place] MG Oral Tablet Center Dextrose 50% Special No Longer [place] Syringe Instructions: Active 2014 Medical For FSBG < 40 Center mg/dL Insulin regular 60 units) No Longer [place] Stable for 28 Active 2014 Medical days at room Center temperature Expires in days from Da te Iohexol Notes: (Same No Longer [place] as:Omnipaque Active 2014 Medical 350). Center Oxycodone Notes: (Same as: Inactive [place] Hydrochloride 5 Roxicodone) 2015 Medi [place] MG Oral Tablet Center Morphine Notes: (Same Inactive [facility] as:MORPhine 2015 Medical Sulfate) Center 1 tab, Route: No Longer [place] Multivitamins PO, Drug Form: Active 2014 Med ical with Folic Acid TAB, Dosing Cent er 0.8 mg oral Weight 88.636, tablet kg, Daily, Start date: 09/25/14 9:00:00, Duration: 30 day, Stop date: 10/24/14 9:00:00 ferrous sulfate Notes: Give with No Longer 09/24 [facility] food. "Do Not Active 2014 Medical Crush" Center ferrous sulfate Notes: Give with Inactive [facility] food. iron 2014 [facility] elemental [place] [id number] as ferrous sulfate Dose=___mg elemental iron insulin detemir Notes: Same as Inactive [facility] Levemir Do not [address] [place] [address] insulin Center without contacting prescriber "single patient use only" Miralax Notes: Dissolve No Longer [facility] as in 8 oz of water Active 2014 Medical or juice. (Same Center as: Miralax) Bisacodyl Notes: (Same As: Inactive [facility] [place] Dulcolax, 2014 [facility] Bisco-Lax) Center gabapentin 300 Notes: (Same as: No Longer [facility] MG Oral Capsule Neurontin) Active 2014 Medic al Center insulin detemir Notes: Same as Inactive [facility] Levemir Do not [address] [place] [address] insulin Center without contacting prescriber "single patient use only" senna 8.6 mg Notes: (Same as: No Longer [facility] oral tablet Senokot) Active 2014 Medical Center Naproxen Notes: (Same as: No Longer [facility] [place] Naprosyn) Active 2014 Medical [place] Docusate Sodium Notes: (Same as: No Longer 09/22 [facility] 100 MG Oral Colace) Active 2014 Medical Capsule [Colace] Center insulin detemir 5 unit, Route: Inactive [facility] SUB-Q, QPM, 2014 Medical Dosing Weight Center 88.636, kg, Start date: 09/22/14 17:00:00, Duration: 30 day, Stop date: 10/21/14 17:00:00 Insulin, Aspart, 6 unit, Route: Inactive [place] Human SUB-Q, Drug 2014 Medical form: SOLN, Center TID-Before Meals, Dosing Weight 88.636, kg, Start date: 09/22/14 11:30:00, Duration: 30 day, Stop date: 10/22/14 7:30:00 insulin detemir Notes: Same as Inactive [facility] Levemir Do not 2015 Medical hold insulin Center without contacting prescriber "single patient use only" Insulin, Aspart, Notes: Roll in No Longer [place] Human palms of hands Active 2014 Medical gently; Do not Center shake vigorously. (Same as: NovoLOG) "single patient use only" Stable for 28 days at room temperature. Expires in days from Da te Insulin, Aspart, 7 unit, Route: Inactive [place] Human SUB-Q, Drug 2014 Medical form: SOLN, Center TID-Before Meals, Dosing Weight 88.636, kg, PRN Blood Glucose Results, Start date: 09/22/14 9:57:00, Duration: 30 day, Stop date: 10/22/14 9:56:00 insulin detemir Notes: Same as Inactive [facility] Levemir Do not 2014 Medical hold insulin Center without contacting prescriber "single patient use only" insulin detemir Notes: Same as No Longer [place] Levemir Do not Active 2014 Medical hold insulin Center without contacting prescriber "single patient use only" Insulin, Aspart, Notes: Roll in No Longer [place] Human palms of hands Active 2014 Medical gently; Do not Center shake vigorously. (Same as: NovoLOG) "single patient use only" Stable for 28 days at room temperature. Expires in days from Da te ergocalciferol Notes: (Same as: No Longer [facility] Vitamin D) "Do Active 2014 Medical Not Crush" Center Glucagon 1 mg, Route: IM, Inactive [place] Drug form: 2015 Medical PDR/INJ, PRN, Center Dosing Weight 88.636, kg, PRN Blood Glucose Results, Start date: 09/20/14 15:01:00, Duration: 30 day, Stop date: 10/20/14 15:00:00 Dextrose 50% 25 gm, 50 mL, No Longer [facility] Syringe Route: IVP, Drug Active 2014 Medical Form: INJ, Center Dosing Weight 88.636, kg, PRN, PRN Blood Glucose Results, Start date: 09/20/14 15:01:00, Duration: 30 day, Stop date: 10/20/14 15:00:00 Insulin, Aspart, Notes: Roll in No Longer [facility] Human palms of hands Active 2014 Medical gently; Do not Center shake vigorously. (Same as: NovoLOG) "single patient use only" Stable for 28 days at room temperature. Expires in days from Da te pneumococcal Notes: (Same as: Inactive [facility] capsular Pneumovax 23) 2014 Medical polysaccharide Refrigerate Cente r type 1 vaccine / pneumococcal capsular polysaccharide type 10A vaccine / pneumococcal capsular polysaccharide type 11A vaccine / pneumococcal capsular polysaccharide type 12F vaccine / pneumococcal capsular polysacchar Celebrex Notes: NSAID. [place] Please check Active 2014 Medical indication. Not Center for seizure. (Same As: CeleBREX ) Insulin regular 60 units) Inactive [facility] Stable for 28 2014 Medical days at room Center temperature Expires in days from Da te PlasmaLyte A 1,000 mL, Rate: No Longer [facility] PH-7.4 1,000 mL 100 ml/hr, Active 2014 Medic al Infuse over: 10 Center hr, Route: IV, Dosing Weight 88.636 kg, Total Volume: 1,000, Start date: 09/20/14 2:20:00, Duration: 30 day, Stop date: 10/20/14 2:19:00 quinapril 40 mg 40 mg = 1 tab, Active [place] oral tablet PO, Daily, 0 2014 Medical Refill(s) Center atorvastatin 20 20 mg = 1 tab, Active H [place] mg oral tablet PO, Bedtime, 0 2014 Me dical Refill(s) [place] methocarbamol 750 mg = 1 tab, No Longer [place] 750 mg oral PO, PRN q 8 hrs, Active 2014 Med ical tablet 0 Refill(s) [place] Glyburide 5 MG / 1 tab, PO, TID, No Longer 09/20 [place] Metformin 0 Refill(s) Active 2014 [facility] hydrochloride Center 500 MG Oral Tablet Aspirin 81 MG 81 mg = 1 tab, Active [facility] Enteric Coated PO, Daily, 0 2014 Medi blanquita Tablet Refill(s) [place] Dextrose 50% 25 gm, 50 mL, Inactive [place] Syringe Route: IVP, Drug 2014 Medical Form: INJ, Center Dosing Weight 88.636, kg, PRN, PRN Blood Glucose Results, Start date: 09/20/14 0:17:00, Duration: 30 day, Stop date: 10/20/14 0:16:00 Insulin, Aspart, Notes: Roll in Inactive [facility] Human palms of hands 2015 Medical gently; Do not Center shake vigorously. (Same as: NovoLOG) "single patient use only" Stable for 28 days at room temperature. Expires in days from [place] te Glucagon 1 mg, Route: IM, Inactive [place] Drug form: 2014 Medical PDR/INJ, PRN, Center Dosing Weight 88.636, kg, PRN Blood Glucose Results, Start date: 09/20/14 0:17:00, Duration: 30 day, Stop date: 10/20/14 0:16:00 Tramadol Notes: Not to [place]er [place] exceed Active 2014 Medical 400mg/day. (Same Center As: Ultram) Lyrica Notes: (Same as: [place] Longer [place] Lyrica) Active 2014 [facility] Tylenol Notes: Max No Longer [facility] acetaminophen Active 2014 Medical 4000 mg/day (4 Center gm/day). (Same as: Tylenol Extra Strength) Enoxaparin Notes: (Same as: No Longer [facility] Lovenox) Active 2014 [facility] Dilaudid Notes: Same as: Inactive [place] Dilaudid 2014 [facility] iodixanol Special Inactive [facility] Instructions: 2014 Medical Dose = 2.2ml/kg, Center Max dose = 100ml -- "To be infused by Radiology Staff ONLY" Iohexol Special Inactive [facility] Instructions: 2014 Medical Dose = 2.2ml/kg, Center Max dose = 100ml -- "To be infused by Radiology Staff ONLY" fluorescein Route: RIGHT Inactive [place] as ophthalmic 1 mg EYE, ONCE, Start 2014 Medical test date: 09/19/14 Center 17:50:00, Stop date: 09/19/14 17:50:00 Proparacaine 1 drp, Route: Inactive [place] hydrochloride 5 RIGHT EYE, ONCE, 2014 Medical MG/ML Ophthalmic Drug form: YENI [place] Solution Priority: STAT, Start date: 09/19/14 17:50:00, Stop date: 09/19/14 17:50:00 Saline Flush Notes: (Same as: No Longer [facility] 0.9% BD Posiflush) Active [address] [place] [address] Morphine Notes: (Same Inactive [facility] as:MORPhine [facility] Medical Sulfate) Center Ondansetron Notes: (Same as: Inactive [facility] Zofran) [facility] Medical MEDICATION WASTE Center Product Size: 4 mg Product Wasted: ___ mg Allergies, Adverse Reactions, Alerts No Known Medication Allergies Immunizations Immunization Date Given Site Status Last Comments Source Updated pneumococcal 09/20/2014 Right completed Jade [place] as 23-valent vaccine deltoid Md dical Center Results Order Name Results Value Reference Date Interpretation Comments Christina rce Range CHEM PANEL Phosphorus 2.7 2.5 - 4.5 02/21 [facility] CHEM PANEL Magnesium Lvl 2.2 1.8 - 2.4 02/21 [place] [facility] ELECTROLYTE AGAP 13.1 10.0 - 02/21 [facility] S 20.0 [facility] ELECTROLYTE eGFR 37 02/21 Result [facility] Comment: The Medical eGFR is Center calculated using the CKD-EPI formula. In most young, healthy individuals the eGFR will be >90 mL/min/1.73m2 . The eGFR declines with age. An eGFR of 60-89 may be normal in some populations, particularly the elderly, for whom the CKD-EPI formula has not been extensively validated. Use of the eGFR is not recommended in the following populations:< br/>
Soheila viduals with unstable creatinine concentration s, including patients and those with serious co-morbid conditions.<b r/>
Patie nts with extremes in muscle mass or diet.

The data above are obtained from the National Kidney Disease Education Program (NKDEP) which additionally recommends that when the eGFR is used in patients with extremes of body mass index for purposes of drug dosing, the eGFR should be multiplied by the estimated BMI. ELECTROLYTE Glucose Lvl 172 70 - 99 02/21 [facility]2016 [facility] ELECTROLYTE Chloride Lvl 110 95 - 109 02/21 [facility]2016 [facility] ELECTROLYTE CO2 22 24 - 32 02/[address] ELECTROLYTE Calcium Lvl 8.7 8.5 - 10.5 02/21 [facility]2016 [facility] ELECTROLYTE Potassium Lvl 4.1 3.5 - 5.1 02/21 [facility] 2016 [facility] ELECTROLYTE BUN 28 7 - 22 02/[address] ELECTROLYTE Creatinine 1.87 0.50 - 02/21 [facility] [place] [facility] Lvl 1.40 /2016 [facility] ELECTROLYTE Sodium Lvl 141 135 - 145 02/21 [facility]2016 [facility] HEMATOLOGY Eosinophils # 0.1 0.0 - 0.5 02/[address] HEMATOLOGY Monocytes # 0.9 0.0 - 0.8 02/21 [facility]2016 [facility] HEMATOLOGY Segs-Bands # 7.3 1.5 - 8.1 02/21 [facility] HEMATOLOGY Basophils 0.5 0.0 - 1.0 02/[address] HEMATOLOGY Lymphocytes # 1.3 1.0 - 5.5 02/[address] HEMATOLOGY Eosinophils 1.3 0.0 - 4.0 02/[address] HEMATOLOGY Monocytes 9.5 2.0 - 12.0 02/[address] HEMATOLOGY Lymphocytes 13.7 20.0 - 02/21 [facility] 40.0 [facility] HEMATOLOGY Segs 75.0 45.0 - 02/21 [facility] [place] 75.0 [facility] HEMATOLOGY Platelet 237 133 - 450 02/21 [facility] HEMATOLOGY MPV 7.6 7.4 - 10.4 02/21 [facility] HEMATOLOGY RDW 13.6 11.5 - 02/21 [place] 14.5 [facility] HEMATOLOGY MCV 88.0 80.0 - 02/21 [place] 94.0 [facility] HEMATOLOGY MCHC 34.6 32.0 - 02/21 [place] 36.0 [facility] HEMATOLOGY MCH 30.5 27.0 - 02/21 [place] 31.0 [facility] HEMATOLOGY RBC 3.54 4.70 - 02/21 [place] 6.10 [facility] HEMATOLOGY Hct 31.2 42.0 - 02/21 [place] 54.0 [facility] HEMATOLOGY Hgb 10.8 14.0 - 02/21 [place] 18.0 [facility] HEMATOLOGY WBC 9.8 3.7 - 10.4 02/21 [facility] BLOOD BANK ABO/Rh B POS 02/20 [facility] RESULTS [facility] BLOOD BANK Antibody Scrn Negative 02/20 [facility] as RESULTS (02/20/17 1:54 AM) [facility] CHEM PANEL Calcium Lvl 7.9 8.5 - 10.5 02/20 [place] as /2016 [facility] CHEM PANEL AGAP 11.2 10.0 - 02/20 [place] 20.0 [facility] CHEM PANEL CO2 23 24 - 32 02/20 [facility] CHEM PANEL eGFR 31 02/20 Result Comment: The [facility] eGFR is Center calculated using the CKD-EPI formula. In most young, healthy individuals the eGFR will be >90 mL/min/1.73m2 . The eGFR declines with age. An eGFR of 60-89 may be normal in some populations, particularly the elderly, for whom the CKD-EPI formula has not been extensively validated. Use of the eGFR is not recommended in the following populations:< br/>
Soheila viduals with unstable creatinine concentration s, including patients and those with serious co-morbid conditions.<b r/>
Patie nts with extremes in muscle mass or diet.

The data above are obtained from the National Kidney Disease Education Program (NKDEP) which additionally recommends that when the eGFR is used in patients with extremes of body mass index for purposes of drug dosing, the eGFR should be multiplied by the estimated BMI. CHEM PANEL BUN 32 7 - 22 02/20 [facility] CHEM PANEL Creatinine 2.18 0.50 - 02/20 [place] Lvl 1.40 /2016 [facility] CHEM PANEL Chloride Lvl 110 95 - 109 02/20 [facility] CHEM PANEL Sodium Lvl 140 135 - 145 02/20 [facility] CHEM PANEL Potassium Lvl 4.2 3.5 - 5.1 02/20 [facility] CHEM PANEL Glucose Lvl 260 70 - 99 02/20 [facility] HEMATOLOGY Basophils 0.5 0.0 - 1.0 02/20 [facility] HEMATOLOGY Eosinophils 0.5 0.0 - 4.0 02/20 [facility] HEMATOLOGY Segs-Bands # 6.2 1.5 - 8.1 02/20 [facility] HEMATOLOGY Lymphocytes # 1.4 1.0 - 5.5 02/20 [facility] HEMATOLOGY Segs 69.4 45.0 - 09 [place] 75.0 [facility] HEMATOLOGY Lymphocytes 16.0 20.0 - 09 40.0 [facility] HEMATOLOGY Monocytes 13.6 2.0 - 12.0 02/20 [facility] HEMATOLOGY Monocytes # 1.2 0.0 - 0.8 02/20 [facility] HEMATOLOGY Hct 27.5 42.0 - 02/20 54.0 [facility] HEMATOLOGY MCV 87.0 80.0 - 02/20 94.0 [facility] HEMATOLOGY Hgb 9.6 14.0 - 09 [place] 18.0 [facility] HEMATOLOGY RBC 3.16 4.70 - 09 [place] 6.10 [facility] HEMATOLOGY WBC 8.9 3.7 - 10.4 02/20 [facility] HEMATOLOGY RDW 13.5 11.5 - 09 [place] 14.5 [facility] HEMATOLOGY MCHC 35.0 32.0 - 09 [place] 36.0 [facility] HEMATOLOGY MCH 30.5 27.0 - 09 [place] 31.0 /2016 [facility] HEMATOLOGY Platelet 214 133 - 450 09 [facility] HEMATOLOGY MPV 7.4 7.4 - 10.4 09 Medical [place] HEMATOLOGY INR 1.16 0.85 - 02/20 [facility] 1.17 /2016 [facility] HEMATOLOGY PT 15.0 12.0 - 02/20 [place] 14.7 /2016 [facility] HEMATOLOGY PTT 33.3 22.9 - 02/20 [place] 35.8 /2016 Medical Center DRUG SCREEN U Cocaine Scr Negative Negative 02/19 [place] *NA* Medical (02/19/17 2:24 PM) Center DRUG SCREEN U Cannab Scr Negative Negative 02/19 [place] *NA* Medical (02/19/17 2:24 PM) Center DRUG SCREEN U Phencyc Scr Negative Negative 02/19 [place] *NA* [facility] (02/19/17 2:24 PM) Center DRUG SCREEN UDS Note See Note 02/19 [facility] (02/19/17 2:24 PM) Medical Center DRUG SCREEN U Opiate Scr Positive Negative 02/19 [place] *ABN* Medical (02/19/17 2:24 PM) Center DRUG SCREEN U Amph Scr Negative Negative 02/19 [place] *NA* Medical (02/19/17 2:24 PM) Center DRUG SCREEN U Edda Scr Negative Negative 02/19 [place] *NA* Medical (02/19/17 2:24 PM) Center DRUG SCREEN U Benzodia Negative Negative 02/19 [place] Scr *NA* Medical (02/19/17 2:24 PM) Center URINE AND UA Leuk Est Negative Negative 02/19 [facility] STOOL (02/19/17 2:24 PM) /2016 Medical Center URINE AND UA Nitrite Negative Negative 02/19 [facility] STOOL (02/19/17 2:24 PM) /2016 Medical Center URINE AND UA Blood Moderate Negative 02/19 [place] STOOL *ABN* Medical (02/19/17 2:24 PM) Center URINE AND UA Bili Negative Negative 02/19 [facility] STOOL *NA* Medical (02/19/17 2:24 PM) Center URINE AND UA Glucose >=1000 Negative 02/19 [facility] STOOL mg/dL mg/dL /2016 Medical Center URINE AND UA Ketones TR 02/19 [facility] URINE AND UA <=1.0 0.1 - 1.0 02/19 [facility] Urobilinogen mg/dL [facility] URINE AND UA Sq Epi None Seen 02/19 [facility] [address] [place] [address] URINE AND UA pH 6.0 5.0 - 8.0 02/[address] URINE AND UA Protein 100 mg/dL Negative 02/19 [facility] mg/dL [facility] URINE AND UA Spec Grav 1.034 <=1.030 02/19 [facility] [address] [place] [address] URINE AND UA WBC <1 0 - 5 02/19 [facility] URINE AND UA RBC 2 0 - 2 02/[address] URINE AND UA Color Light Yellow Yellow 02/19 [facility] *NA* /2016 [facility] (02/19/17 2:24 PM) [place] URINE AND UA Turbidity Clear Clear 02/19 [facility] (02/19/17 2:24 PM) [facility] CHEM PANEL Lactic Acid 1.0 0.5 - 2.2 02/19 [place] L[place] [facility] ELECTROLYTE AGAP 15.5 10.0 - 02/19 [facility] S 20.0 [facility] ELECTROLYTE eGFR 17 02/19 [facility] [place] [facility] Comment: The [facility] eGFR is Center calculated using the CKD-EPI formula. In most young, healthy individuals the eGFR will be >90 mL/min/1.73m2 . The eGFR declines with age. An eGFR of 60-89 may be normal in some populations, particularly the elderly, for whom the CKD-EPI formula has not been extensively validated. Use of the eGFR is not recommended in the following populations:< br/>
Soheila viduals with unstable creatinine concentration s, including patients and those with serious co-morbid conditions.<b r/>
Patie nts with extremes in muscle mass or diet.

The data above are obtained from the National Kidney Disease Education Program (NKDEP) which additionally recommends that when the eGFR is used in patients with extremes of body mass index for purposes of drug dosing, the eGFR should be multiplied by the estimated BMI. ELECTROLYTE Glucose Lvl 364 70 - 99 02/19 [facility] ELECTROLYTE BUN 44 7 - 22 02/19 [facility] ELECTROLYTE Creatinine 2.60 0.50 - 02/19 [facility] S Lvl 1.40 /2016 [facility] ELECTROLYTE Sodium Lvl 138 135 - 145 02/19 [facility] ELECTROLYTE Chloride Lvl 106 95 - 109 02/19 [facility] ELECTROLYTE Potassium Lvl 5.5 3.5 - 5.1 02/19 [place] [facility] ELECTROLYTE CO2 22 24 - 32 02/19 [facility] ELECTROLYTE Calcium Lvl 9.1 8.5 - 10.5 02/19 [facility] HEMATOLOGY Lymphocytes 11.9 20.0 - 09 40.0 [facility] HEMATOLOGY Eosinophils 1.1 0.0 - 4.0 02/19 [facility] HEMATOLOGY Monocytes 5.9 2.0 - 12.0 02/19 [facility] HEMATOLOGY Monocytes # 0.9 0.0 - 0.8 02/19 [facility] HEMATOLOGY Lymphocytes # 1.9 1.0 - 5.5 02/19 [facility] HEMATOLOGY Segs-Bands # 12.8 1.5 - 8.1 02/19 [facility] HEMATOLOGY Eosinophils # 0.2 0.0 - 0.5 02/19 [facility] HEMATOLOGY Basophils 0.4 0.0 - 1.0 02/19 [facility] HEMATOLOGY Segs 80.7 45.0 - 02/19 75.0 [facility] HEMATOLOGY Basophils # 0.1 0.0 - 0.2 09 [facility] HEMATOLOGY MCH 28.8 27.0 - 02/19 31.0 [facility] HEMATOLOGY MPV 7.4 7.4 - 10.4 02/19 [facility] HEMATOLOGY RDW 13.5 11.5 - 02/19 14.5 [facility] HEMATOLOGY Platelet 290 133 - 450 02/19 [facility] HEMATOLOGY MCHC 32.7 32.0 - 02/19 36.0 [facility] HEMATOLOGY MCV 87.9 80.0 - 02/19 94.0 [facility] HEMATOLOGY Hct 37.4 42.0 - 02/19 54.0 [facility] HEMATOLOGY WBC 15.9 3.7 - 10.4 02/19 [facility] HEMATOLOGY RBC 4.25 4.70 - 02/19 6.10 [facility] HEMATOLOGY Hgb 12.2 14.0 - 02/19 18.0 [facility] HEMATOLOGY Angle Rapid 81 64 - 80 02/19 [facility] HEMATOLOGY K-time Rapid 0.8 0.6 - 2.3 02/19 [facility] HEMATOLOGY R-time Rapid 0.5 0.4 - 0.7 02/19 [facility] HEMATOLOGY [place] 0.4 02/19 [facility] HEMATOLOGY ACT (TEG) 97 86 - 118 02/19 [facility] HEMATOLOGY G-value Rapid 15.0 5.0 - 11.6 02/19 [place] [facility] HEMATOLOGY Max Amplitude 75 52 - 71 02/19 [place] [facility] HEMATOLOGY Estimated % 0.2 0.0 - 7.5 02/19 [place] L[place] [facility] TOXICOLOGY Ethanol Lvl <3.0 mg/dL 02/19 [facility] TOXICOLOGY Etoh (%) <0.003 % 02/19 [facility] BLOOD BANK ABO/Rh B POS 02/19 RESULTS [facility] BLOOD BANK Antibody Scrn Negative 02/19 RESULTS (02/19/17 10:19 AM) [facility] HEMATOLOGY RDW 18.4 11.5 - 11/08 14.5 [facility] HEMATOLOGY Platelet 456 133 - 450 11/08 [facility] HEMATOLOGY MPV 6.9 7.4 - 10.4 11/08 [facility] HEMATOLOGY Hgb 8.6 14.0 - 11/08 18.0 [facility] HEMATOLOGY Hct 27.2 42.0 - 11/08 54.0 [facility] HEMATOLOGY MCH 27.7 27.0 - 11/08 31.0 [facility] HEMATOLOGY MCV 87.2 80.0 - 11/08 94.0 [facility] HEMATOLOGY MCHC 31.7 32.0 - 11/08 [facility] 36.0 Medical Center HEMATOLOGY RBC 3.12 4.70 - 11/08 [place] 6.10 Medical Center HEMATOLOGY WBC 8.3 3.7 - 10.4 11/08 [facility] HEMATOLOGY Segs 62.3 45.0 - 11/08 [place] 75.0 Medical Center HEMATOLOGY Lymphocytes 23.3 20.0 - 11/08 [place] 40.0 [facility] Center HEMATOLOGY Monocytes 10.4 2.0 - 12.0 11/08 [facility] HEMATOLOGY Eosinophils 3.3 0.0 - 4.0 11/08 [facility] HEMATOLOGY Lymphocytes # 1.9 1.0 - 5.5 11/08 [facility] HEMATOLOGY Monocytes # 0.9 0.0 - 0.8 11/08 [facility] HEMATOLOGY Eosinophils # 0.3 0.0 - 0.5 11/08 [facility] HEMATOLOGY Basophils # 0.1 0.0 - 0.2 11/08 [facility] HEMATOLOGY Basophils 0.7 0.0 - 1.0 11/08 [facility] HEMATOLOGY Segs-Bands # 5.1 1.5 - 8.1 11/08 [facility] HEMATOLOGY Platelet 504 133 - 450 11/07 [facility] HEMATOLOGY RDW 17.7 11.5 - 11/07 14.5 [facility] Center HEMATOLOGY MPV 6.9 7.4 - 10.4 11/07 [facility] HEMATOLOGY MCH 27.8 27.0 - 11/07 [place] 31.0 Medical Center HEMATOLOGY MCV 86.9 80.0 - 11/07 [place] 94.0 Medical Center HEMATOLOGY MCHC 32.0 32.0 - 11/07 [place] 36.0 Medical Center HEMATOLOGY RBC 3.26 4.70 - 11/07 [place] 6.10 Medical Center HEMATOLOGY Hct 28.4 42.0 - 11/07 [place] 54.0 Medical Center HEMATOLOGY Hgb 9.1 14.0 - 11/07 [place] 18.0 /2014 Medical Center HEMATOLOGY WBC 9.3 3.7 - 10.4 11/07 [facility] HEMATOLOGY Monocytes 10.5 2.0 - 12.0 05 [facility] HEMATOLOGY Lymphocytes 28.6 20.0 - 05 [place] 40.0 [facility] HEMATOLOGY Basophils # 0.1 0.0 - 0.2 05 [facility] HEMATOLOGY Segs-Bands # 5.3 1.5 - 8.1 11/07 [facility] HEMATOLOGY Eosinophils 3.1 0.0 - 4.0 05 [facility] HEMATOLOGY Basophils 0.5 0.0 - 1.0 05 [facility] HEMATOLOGY Segs 57.3 45.0 - 05 [place] 75.0 [facility] HEMATOLOGY Eosinophils # 0.3 0.0 - 0.5 11/07 [facility] HEMATOLOGY Lymphocytes # 2.7 1.0 - 5.5 11/07 [facility] HEMATOLOGY Monocytes # 1.0 0.0 - 0.8 11/07 [facility] HEMATOLOGY Lymphocytes # 1.8 1.0 - 5.5 11/06 [place] [facility] HEMATOLOGY Monocytes # 0.7 0.0 - 0.8 05 [facility] HEMATOLOGY Eosinophils # 0.2 0.0 - 0.5 05 [facility] HEMATOLOGY Eosinophils 3.4 0.0 - 4.0 11/06 [facility] HEMATOLOGY Basophils 0.7 0.0 - 1.0 05 [facility] HEMATOLOGY Segs-Bands # 4.1 1.5 - 8.1 11/06 [facility] HEMATOLOGY Lymphocytes 26.1 20.0 - 05 [place] 40.0 [facility] HEMATOLOGY Segs 59.5 45.0 - 05 [place] 75.0 [facility] HEMATOLOGY Monocytes 10.3 2.0 - 12.0 05 [facility] HEMATOLOGY RDW 17.5 11.5 - 05 [place] 14.5 [facility] HEMATOLOGY Platelet 507 133 - 450 11/06 [facility] HEMATOLOGY MCH 27.4 27.0 - 05 [place] 31.0 /2015 [facility] HEMATOLOGY MCHC 31.7 32.0 - 05 [facility] [place] 36.0 [facility] HEMATOLOGY MCV 86.4 80.0 - 11/06 94.0 [facility] HEMATOLOGY WBC 7.0 3.7 - 10.4 11/06 [facility] HEMATOLOGY RBC 3.46 4.70 - 11/06 6.10 [facility] HEMATOLOGY Hgb 9.5 14.0 - 11/06 18.0 [facility] HEMATOLOGY MPV 6.6 7.4 - 10.4 11/06 [facility] HEMATOLOGY Hct 29.9 42.0 - 11/06 54.0 [facility] HEMATOLOGY Basophils # 0.1 0.0 - 0.2 11/05 [facility] CHEM PANEL Phosphorus 2.6 2.5 - 4.5 11/04 [facility] CHEM PANEL eGFR 108 11/04 <sup>1</sup>[facility] Comment: The Center eGFR is calculated using the CKD-EPI formula. In most young, healthy individuals the eGFR will be >90 mL/min/1.73m2 . The eGFR declines with age. An eGFR of 60-89 may be normal in some populations, particularly the elderly, for whom the CKD-EPI formula has not been extensively validated. Use of the eGFR is not recommended in the following populations:& lt;br/>
I ndividuals with unstable creatinine concentration s, including patients and those with serious co-morbid conditions.<b r/>
Patie nts with extremes in muscle mass or diet.

The data above are obtained from the National Kidney Disease Education Program (NKDEP) which additionally recommends that when the eGFR is used in patients with extremes of body mass index for purposes of drug dosing, the eGFR should be multiplied by the estimated BMI. CHEM PANEL Glucose Lvl 97 70 - 99 11/04 <sup>4</sup>I nterpretive Medical Data: Adult Center reference range values reflect the clinical guidelines
of the [place] [employer]. CHEM PANEL Creatinine 0.6 0.5 - 1.4 11/04 [facility] CHEM PANEL BUN 10 7 - 22 11/04 [facility] CHEM PANEL Sodium Lvl 141 135 - 145 11/04 [facility] CHEM PANEL CO2 29 24 - 32 11/04 [facility] [facility] CHEM PANEL Potassium Lvl 4.2 3.5 - 5.1 11/04 [facility] CHEM PANEL Chloride Lvl 107 95 - 109 11/04 [facility] CHEM PANEL AGAP 9.2 10.0 - 11/04 20.0 [facility] CHEM PANEL Calcium Lvl 7.8 8.5 - 10.5 11/04 [facility] CHEM PANEL Magnesium Lvl 1.6 1.8 - 2.4 11/04 [facility] PARATHYROID Ca Norm WB 1.13 1. - 11/04 [facility] PROFILE 1. [facility] PARATHYROID Ca Ion WB 1.17 1. - 11/04 PROFILE 1. [facility] CHEM PANEL Phosphorus 1.9 2.5 - 4.5 11/03 [facility] CHEM PANEL eGFR 101 11/03 <sup>2</sup>R [facility] Comment: The [place] eGFR is calculated using the CKD-EPI formula. In most young, healthy individuals the eGFR will be >90 mL/min/1.73m2 . The eGFR declines with age. An eGFR of 60-89 may be normal in some populations, particularly the elderly, for whom the CKD-EPI formula has not been extensively validated. Use of the eGFR is not recommended in the following populations:& lt;br/>
I ndividuals with unstable creatinine concentration s, including patients and those with serious co-morbid conditions.<b r/>
Patie nts with extremes in muscle mass or diet.

The data above are obtained from the National Kidney Disease Education Program (NKDEP) which additionally recommends that when the eGFR is used in patients with extremes of body mass index for purposes of drug dosing, the eGFR should be multiplied by the estimated BMI. CHEM PANEL CO2 25 24 - 32 11/03 [facility] CHEM PANEL Calcium Lvl 8.2 8.5 - 10.5 11/03 [facility] CHEM PANEL Chloride Lvl 105 95 - 109 11/03 [facility] CHEM PANEL Potassium Lvl 3.8 3.5 - 5.1 11/03 [facility] CHEM PANEL Creatinine 0.7 0.5 - 1.4 11/03 [facility] Lvl [facility] CHEM PANEL Glucose Lvl 220 70 - 99 11/03 <sup>5</sup>I nterpretive Medical Data: Adult Center reference range values reflect the clinical guidelines
of the [place] [employer]. CHEM PANEL BUN 13 7 - 22 11/03 [facility] CHEM PANEL Sodium Lvl 138 135 - 145 11/03 [facility] CHEM PANEL AGAP 11.8 10.0 - 11/03 [facility] .0 [facility] CHEM PANEL Magnesium Lvl 1.6 1.8 - 2.4 11/03 [facility] PARATHYROID Ca Ion WB 1.04 1.05 - 11/03 [facility] PROFILE 1. [facility] PARATHYROID Ca Norm WB 1.05 1.05 - 11/03 [facility] PROFILE 1. [facility] BLOOD BANK ABO/Rh B POS 11/02 [facility] RESULTS [facility] BLOOD BANK Antibody Scrn Negative 11/02 [facility] as RESULTS (11/02/14 3:12 AM) Medica l [place] CHEM PANEL eGFR 101 11/02 <sup>3</sup[place] Comment: The Center eGFR is calculated using the CKD-EPI formula. In most young, healthy individuals the eGFR will be >90 mL/min/1.73m2 . The eGFR declines with age. An eGFR of 60-89 may be normal in some populations, particularly the elderly, for whom the CKD-EPI formula has not been extensively validated. Use of the eGFR is not recommended in the following populations:& lt;br/>
I ndividuals with unstable creatinine concentration s, including patients and those with serious co-morbid conditions.<b r/>
Patie nts with extremes in muscle mass or diet.

The data above are obtained from the National Kidney Disease Education Program (NKDEP) which additionally recommends that when the eGFR is used in patients with extremes of body mass index for purposes of drug dosing, the eGFR should be multiplied by the estimated BMI. CHEM PANEL Glucose Lvl 106 70 - 99 11/02 <sup>6</sup>I nterpretive Medical Data: Adult Center reference range values reflect the clinical guidelines
of the [place] [employer]. CHEM PANEL BUN 12 7 - 22 11/02 [facility] CHEM PANEL Sodium Lvl 138 135 - 145 11/02 [facility] CHEM PANEL Creatinine 0.7 0.5 - 1.4 11/02 [facility] Lvl [facility] CHEM PANEL Chloride Lvl 104 95 - 109 11/02 [place] [facility] CHEM PANEL Potassium Lvl 4.3 3.5 - 5.1 11/02 [place] [facility] CHEM PANEL AGAP 12.3 10.0 - 11/02 . [facility] CHEM PANEL CO2 26 24 - 32 11/02 [facility] CHEM PANEL Calcium Lvl 8.3 8.5 - 10.5 11/02 [facility] CHEM PANEL Phosphorus 2.3 2.5 - 4.5 11/02 [facility] CHEM PANEL Magnesium Lvl 1.9 1.8 - 2.4 11/02 [place] [facility] PARATHYROID Ca Ion WB 1.04 1.05 - 11/02 [place] PROFILE 1. [facility] PARATHYROID Ca Norm WB 1.07 1.05 - 11/02 [place] PROFILE 1. [facility] TOXICOLOGY Vanco Tr 16.7 11/01 <sup>7</sup>I [place] nterpretive Medical Data: Center Therapeutic Range:
Trough: 10 - 20 ug/mL
Peak: 20 - 40 ug/mL
Potential Toxicity: >80 ug/mL TOXICOLOGY Vanco Tr TND 2AM 11/01 [facility] BLOOD BANK ABO/Rh B POS 10/30 [facility] RESULTS /2014 [facility] BLOOD BANK Antibody Scrn Negative 10/30 [place] RESULTS (10/30/14 5:05 AM) /2014 [facility] TOXICOLOGY Vanco Tr TND 5 AM 10/30 [facility] TOXICOLOGY Vanco Tr 8.9 10/30 <sup>8</sup>I [place] as nterpretive Medical Data: Center Therapeutic Range:
Trough: 10 - 20 ug/mL
Peak: 20 - 40 ug/mL
Potential Toxicity: >80 ug/mL SPECIAL Hgb A1C 5.9 <=5.6 % 10/29 [facility] CHEMISTRY [facility] CHEM PANEL Lactic Acid 1.1 0.5 - 2.2 10/29 [place] Lvl [facility] HEMATOLOGY Rapid TEG Citrated 10/29 [facility] Sample Type Whole [facility] Blood [place] HEMATOLOGY [place] Point 0.5 10/29 [facility] HEMATOLOGY ACT (TEG) 113 86 - 118 10/29 [facility] HEMATOLOGY K-time 0.8 0.6 - 2.3 10/29 [facility] HEMATOLOGY R-time 0.7 0.4 - 0.7 10/29 [facility] HEMATOLOGY Max Amp 77 52 - 71 10/29 [facility] HEMATOLOGY Angle 81 64 - 80 10/29 [facility] HEMATOLOGY Estimated % 0.0 0.0 - 7.5 10/29 [place] [facility] Lysis [facility] HEMATOLOGY G-value 16.6 5.0 - 11.6 10/29 [facility] URINE AND UA Sq Epi Occasional Few /LPF 10/29 [facility] STOOL /LPF /2014 [facility] URINE AND UA Bacteria None Seen None Seen 10/29 [facility] STOOL (10/28/14 8:15 PM) /2014 [facility] URINE AND UA RBC None Seen 0 - 2 10/29 [facility] (10/28/14 8:15 PM) /2014 [facility] URINE AND UA Mucus Rare /LPF None Seen 10/29 [facility] STOOL /LPF /2014 [facility] URINE AND UA WBC 0-2 /HPF None Seen 10/29 [facility] STOOL /HPF /2014 [facility] URINE AND UA Hyal Cast 3-5 0 - 2 10/29 [facility] (10/28/14 8:15 PM) /2014 [facility] URINE AND UA Leuk Est Negative Negative 10/29 [facility] (10/28/14 8:15 PM) /2014 [facility] URINE AND UA Ketones Negative Negative 10/29 [facility] STOOL *NA* /2014 Medical (10/28/14 8:15 PM) [place] URINE AND UA Glucose Negative Negative 10/29 [facility] STOOL (10/28/14 8:15 PM) [facility] URINE AND UA Protein Trace Negative 10/29 [facility] STOOL *ABN* /2014 [facility] (10/28/14 8:15 PM) [place] URINE AND UA pH 6.5 5.0 - 8.0 10/29 [facility] STOOL /2014 [facility] URINE AND UA Spec Grav 1.010 <=1.030 10/29 [facility] /2014 [facility] URINE AND UA Turbidity Clear Clear 10/29 [facility] (10/28/14 8:15 PM) [facility] URINE AND UA Color Yellow Yellow 10/29 [facility] *NA* /2014 [facility] (10/28/14 8:15 PM) [place] URINE AND UA Blood Negative Negative 10/29 [facility] (10/28/14 8:15 PM) [facility] URINE AND UA Bili Negative Negative 10/29 [facility] *NA* /2014 [facility] (10/28/14 8:15 PM) [place] URINE AND UA Nitrite Negative Negative 10/29 [facility] (10/28/14 8:15 PM) [facility] URINE AND UA 1.0 0.1 - 1.0 10/29 [facility] Urobilinogen /2014 [facility] CHEM PANEL Lactic Acid 0.9 0.5 - 2.2 10/29 [facility] Lvl [facility] CHEM PANEL Magnesium Lvl 1.8 1.8 - 2.4 10/18 [place] [facility] CHEM PANEL Phosphorus 2.2 2.5 - 4.5 10/18 [facility] CHEM PANEL eGFR 116 10/18 <sup>1</sup>R [facility] Comment: The Center eGFR is calculated using the CKD-EPI formula. In most young, healthy individuals the eGFR will be >90 mL/min/1.73m2 . The eGFR declines with age. An eGFR of 60-89 may be normal in some populations, particularly the elderly, for whom the CKD-EPI formula has not been extensively validated. Use of the eGFR is not recommended in the following populations:& lt;br/>
I ndividuals with unstable creatinine concentration s, including patients and those with serious co-morbid conditions.<b r/>
Patie nts with extremes in muscle mass or diet.

The data above are obtained from the National Kidney Disease Education Program (NKDEP) which additionally recommends that when the eGFR is used in patients with extremes of body mass index for purposes of drug dosing, the eGFR should be multiplied by the estimated BMI. CHEM PANEL CO2 27 24 - 32 05/ [facility] CHEM PANEL Calcium Lvl 8.1 8.5 - 10.5 05 [place] [facility] CHEM PANEL Chloride Lvl 106 95 - 109 05/ [place] [facility] CHEM PANEL Sodium Lvl 139 135 - 145 05/ [facility] CHEM PANEL Potassium Lvl 4.0 3.5 - 5.1 05 [place] [facility] CHEM PANEL Creatinine 0.5 0.5 - 1.4 05 [facility] CHEM PANEL Glucose Lvl 82 70 - 99 05 <sup>4</sup>I nterpretive Medical Data: Adult Center reference range values reflect the clinical guidelines
of the [place] [employer]. CHEM PANEL BUN 11 7 - 22 05/ [facility] CHEM PANEL AGAP 10.0 10.0 - 05/05 20.0 [facility] HEMATOLOGY Platelet 610 133 - 450 05 [facility] HEMATOLOGY MPV 6.3 7.4 - 10.4 05 [facility] HEMATOLOGY RDW 15.6 11.5 - 05/05 14.5 /2014 [facility] HEMATOLOGY Hct 27.8 42.0 - 05/05 [place] 54.0 /2014 [facility] HEMATOLOGY Hgb 9.0 14.0 - 05/05 [place] 18.0 [facility] HEMATOLOGY RBC 3.22 4.70 - 05/05 [place] 6.10 /2014 [facility] HEMATOLOGY WBC 6.7 3.7 - 10.4 05 [facility] HEMATOLOGY MCV 86.5 80.0 - 05/05 [place] 94.0 /2014 [facility] HEMATOLOGY MCHC 32.4 32.0 - 05/05 [place] 36.0 /2014 [facility] HEMATOLOGY MCH 28.0 27.0 - 05/05 [place] 31.0 /2014 [facility] HEMATOLOGY Segs-Bands # 4.7 1.5 - 8.1 05 [facility] HEMATOLOGY Lymphocytes 14.0 20.0 - 05/ 40.0 [facility] HEMATOLOGY Monocytes 10.3 2.0 - 12.0 05/ [facility] HEMATOLOGY Eosinophils 4.0 0.0 - 4.0 05/ [facility] HEMATOLOGY Basophils 1.2 0.0 - 1.0 05/ [facility] HEMATOLOGY Segs 70.5 45.0 - 05/05 [place] 75.0 [facility] HEMATOLOGY Basophils # 0.1 0.0 - 0.2 05/ [facility] HEMATOLOGY Eosinophils # 0.3 0.0 - 0.5 05/ [facility] HEMATOLOGY Monocytes # 0.7 0.0 - 0.8 05/ [facility] HEMATOLOGY Lymphocytes # 0.9 1.0 - 5.5 05 [facility] TOXICOLOGY Vanco Tr TND 1200 05 [facility] TOXICOLOGY Vanco Tr 14.8 05 <sup>7</sup>I nterpretive Medical Data: Center Therapeutic Range:
Trough: 10 - 20 ug/mL
Peak: 20 - 40 ug/mL
Potential Toxicity: >80 ug/mL CHEM PANEL Phosphorus 1.7 2.5 - 4.5 10/16 [facility] CHEM PANEL Magnesium Lvl 2.0 1.8 - 2.4 10/16 [facility] CHEM PANEL Glucose Lvl 126 70 - 99 05 <sup>5</sup>I nterpretive Medical Data: Adult Center reference range values reflect the clinical guidelines
of the [place] [employer]. CHEM PANEL BUN 11 7 - 22 05 [facility] CHEM PANEL Calcium Lvl 7.6 8.5 - 10.5 05 [facility] CHEM PANEL Creatinine 0.6 0.5 - 1.4 05/ [facility] CHEM PANEL Chloride Lvl 102 95 - 109 05 [facility] CHEM PANEL CO2 28 24 - 32 05 [facility] CHEM PANEL Sodium Lvl 137 135 - 145 10/16 [facility] CHEM PANEL Potassium Lvl 3.9 3.5 - 5.1 10/16 [facility] CHEM PANEL eGFR 108 10/16 <sup>2</sup>R [facility] Comment: The Center eGFR is calculated using the CKD-EPI formula. In most young, healthy individuals the eGFR will be >90 mL/min/1.73m2 . The eGFR declines with age. An eGFR of 60-89 may be normal in some populations, particularly the elderly, for whom the CKD-EPI formula has not been extensively validated. Use of the eGFR is not recommended in the following populations:& lt;br/>
I ndividuals with unstable creatinine concentration s, including patients and those with serious co-morbid conditions.<b r/>
Patie nts with extremes in muscle mass or diet.

The data above are obtained from the National Kidney Disease Education Program (NKDEP) which additionally recommends that when the eGFR is used in patients with extremes of body mass index for purposes of drug dosing, the eGFR should be multiplied by the estimated BMI. CHEM PANEL AGAP 10.9 10.0 - 10/16 [facility] 20. [facility] HEMATOLOGY Monocytes # 0.7 0.0 - 0.8 10/16 [facility] HEMATOLOGY Eosinophils # 0.1 0.0 - 0.5 10/16 [facility] HEMATOLOGY Basophils # 0.1 0.0 - 0.2 10/16 [facility] HEMATOLOGY Segs-Bands # 7.8 1.5 - 8.1 10/16 [facility] HEMATOLOGY Lymphocytes # 0.8 1.0 - 5.5 10/16 [facility] HEMATOLOGY Basophils 1.0 0.0 - 1.0 10/16 [facility] HEMATOLOGY Monocytes 6.9 2.0 - 12.0 10/16 [facility]2014 [facility] HEMATOLOGY Eosinophils 1.3 0.0 - 4.0 10/16 [facility] HEMATOLOGY Lymphocytes 8.4 20.0 - 05 [facility] 40.0 [facility] HEMATOLOGY Segs 82.4 45.0 - 10/16 [place] 75.0 /2014 [facility] HEMATOLOGY Platelet 679 133 - 450 10/16 [facility] HEMATOLOGY MPV 6.3 7.4 - 10.4 10/16 [facility] HEMATOLOGY RDW 16.5 11.5 - 05 14.5 /2014 [facility] HEMATOLOGY Hgb 9.1 14.0 - 10/16 18.0 /2014 [facility] HEMATOLOGY WBC 9.4 3.7 - 10.4 10/16 [facility] HEMATOLOGY RBC 3.14 4.70 - 10/16 [place] 6.10 /2014 [facility] HEMATOLOGY MCH 28.9 27.0 - 10/16 [place] 31.0 /2014 [facility] HEMATOLOGY MCHC 33.1 32.0 - 10/16 36.0 [facility] HEMATOLOGY MCV 87.5 80.0 - 10/16 94.0 /2014 [facility] HEMATOLOGY Hct 27.4 42.0 - 10/16 [facility] 54.0 [facility] TOXICOLOGY Vanco Tr TND 2230 10/16 [facility] TOXICOLOGY Vanco Tr 12.6 10/16 <sup>8</sup>I [place] nterpretive Medical Data: Center Therapeutic Range:
Trough: 10 - 20 ug/mL
Peak: 20 - 40 ug/mL
Potential Toxicity: >80 ug/mL PARATHYROID Ca Norm WB 1.04 1.05 - 10/15 [facility] PROFILE 1. [facility] PARATHYROID Ca Ion WB 1.08 . - 10/15 [facility] PROFILE . [facility] CHEM PANEL eGFR 96 10/15 <sup>3</sup>[place] Comment: The Center eGFR is calculated using the CKD-EPI formula. In most young, healthy individuals the eGFR will be >90 mL/min/1.73m2 . The eGFR declines with age. An eGFR of 60-89 may be normal in some populations, particularly the elderly, for whom the CKD-EPI formula has not been extensively validated. Use of the eGFR is not recommended in the following populations:& lt;br/>
I ndividuals with unstable creatinine concentration s, including patients and those with serious co-morbid conditions.<b r/>
Patie nts with extremes in muscle mass or diet.

The data above are obtained from the National Kidney Disease Education Program (NKDEP) which additionally recommends that when the eGFR is used in patients with extremes of body mass index for purposes of drug dosing, the eGFR should be multiplied by the estimated BMI. CHEM PANEL Calcium Lvl 7.8 8.5 - 10.5 05 [facility] CHEM PANEL Chloride Lvl 100 95 - 109 05 [facility] CHEM PANEL CO2 25 24 - 32 05 2014 [facility] CHEM PANEL Potassium Lvl 4.2 3.5 - 5.1 10/15 [facility] CHEM PANEL Creatinine 0.8 0.5 - 1.4 10/15 [facility] CHEM PANEL Sodium Lvl 135 135 - 145 10/15 2014 [facility] CHEM PANEL BUN 16 7 - 22 10/15 [facility] CHEM PANEL Glucose Lvl 229 70 - 99 10/15 <sup>6</sup>I nterpretive Medical Data: Adult Center reference range values reflect the clinical guidelines
of the [place] [employer]. CHEM PANEL AGAP 14.2 10.0 - 10/15 20.0 [facility] HEMATOLOGY Monocytes # 1.0 0.0 - 0.8 / [facility] HEMATOLOGY Eosinophils # 0.1 0.0 - 0.5 10/15 [facility] HEMATOLOGY Segs-Bands # 10.0 1.5 - 8.1 05/ [facility] HEMATOLOGY Lymphocytes # 0.9 1.0 - 5.5 05/ [facility] HEMATOLOGY Basophils 0.2 0.0 - 1.0 05/ [facility] HEMATOLOGY Eosinophils 1.0 0.0 - 4.0 05/ [facility] HEMATOLOGY Monocytes 8.0 2.0 - 12.0 05/ [facility] HEMATOLOGY Lymphocytes 7.3 20.0 - 05 [place] 40.0 [facility] HEMATOLOGY Segs 83.5 45.0 - 05 [place] 75.0 [facility] HEMATOLOGY MPV 6.4 7.4 - 10.4 05 [facility] HEMATOLOGY Platelet 733 133 - 450 05 [facility] HEMATOLOGY RDW 16.0 11.5 - 05 14.5 /2014 [facility] HEMATOLOGY MCH 28.4 27.0 - 05 31.0 /2014 [facility] HEMATOLOGY MCHC 32.3 32.0 - 10/15 36.0 /2014 [facility] HEMATOLOGY Hct 27.5 42.0 - 05 [facility] 54.0 /2014 [facility] HEMATOLOGY MCV 87.7 80.0 - 10/15 [facility] 94.0 /2014 [facility] HEMATOLOGY Hgb 8.9 14.0 - 10/15 18.0 /2014 [facility] HEMATOLOGY RBC 3.13 4.70 - 10/15 [facility] 6.10 /2014 [facility] HEMATOLOGY WBC 12.0 3.7 - 10.4 10/15 [facility] TOXICOLOGY Vanco Tr 10.0 10/14 <sup>9</sup>I [facility] nterpretive Medical Data: Center Therapeutic Range:
Trough: 10 - 20 ug/mL
Peak: 20 - 40 ug/mL
Potential Toxicity: >80 ug/mL TOXICOLOGY Vanco Tr TND see emar 10/14 [facility] s [facility] PARATHYROID Ca Norm WB 1.03 1.05 - 10/14 [facility] PROFILE 1.25 [facility] PARATHYROID Ca Ion WB 1.06 1.05 - 10/14 [facility] PROFILE 1. [facility] IMMUNOLOGY Prealbumin 5.5 18.0 - 10/14 [facility] 45.0 [facility] IMMUNOLOGY CRP, High >190.0 10/14 <sup>10</sup> [place] Sensitivity mg/L /2014 Interpretive Medical Data: Low Center Risk: <1.0 mg/L
Aver age Risk: 1.0 - 3.0 mg/L
High Risk: >3.0 mg/L
Infl ammation: >10.0 mg/L HEMATOLOGY Anisocyte 1+ None Seen 10/14 [facility] *ABN* /2014 Medical (10/14/14 12:36 AM) [place] HEMATOLOGY Polychrom Moderate None Seen 10/14 [place] *ABN* /2014 Medical (10/14/14 12:36 AM) [place] BLOOD BANK ABO/Rh B POS 10/13 [place] RESULTS /2014 [facility] BLOOD BANK Antibody Scrn Negative 10/13 [place] RESULTS (10/13/14 3:30 AM) [facility] BLOOD BANK RBC product Modification Required 10/13 [facility] RESULTS (10/13/14 2:44 AM) [facility] CHEM PANEL ALT 12 0 - 65 10/13 /2014 [facility] CHEM PANEL Albumin Lvl 1.4 3.5 - 5.0 10/13 [place] [facility] CHEM PANEL Total Protein 6.8 6.4 - 8.4 10/13 [place] [facility] CHEM PANEL AST 18 0 - 37 10/13 2014 [facility] CHEM PANEL Bili Total 0.8 0.2 - 1.3 10/13 2014 [facility] CHEM PANEL Alk Phos 101 39 - 136 10/13 2014 [facility] CHEM PANEL A/G Ratio 0.3 0.7 - 1.6 10/13 [facility] CHEM PANEL Globulin 5.4 2.0 - 4.0 10/13 [facility] CHEM PANEL B/C Ratio 16 6 - 25 10/13 2014 [facility] CHEM PANEL Lactic Acid 1.0 0.5 - 2.2 10/13 [place] Lvl [facility] HEMATOLOGY Bands 1.0 0.0 - 11.0 10/13 [facility] HEMATOLOGY Polychrom Moderate None Seen 10/13 [place] *ABN* /2014 [facility] (10/13/14 1:22 AM) [place] HEMATOLOGY Target Cell Slight 10/13 [facility] HEMATOLOGY Plt Morph Normal 10/13 [facility] (10/13/14 1:22 AM) /2014 [facility] HEMATOLOGY Anisocyte 1+ None Seen 10/13 [place] *ABN* /2014 Medical (10/13/14 1:22 AM) Center HEMATOLOGY Atypical 1.0 <=0.0 % 10/13 [facility] Lymph [facility] HEMATOLOGY Basophils # 0.4 0.0 - 0.2 10/13 [place] [facility] HEMATOLOGY RBC 2.26 4.70 - 10/10 [place] 6.10 /2014 [facility] HEMATOLOGY MCHC 31.6 32.0 - 10/10 [place] 36.0 /2014 [facility] HEMATOLOGY MPV 6.5 7.4 - 10.4 10/10 [facility] HEMATOLOGY Platelet 1041 133 - 450 10/10 <sup>12</sup> [place] Result Medical Comment: Center Critical Result(s) called to Breanne Suarez at 10/10/2014 06:42 byTL. Read back [place] HEMATOLOGY RDW 16.7 11.5 - 10/10 [place] 14.5 /2014 [facility] HEMATOLOGY MCV 90.2 80.0 - 10/10 [place] 94.0 /2014 [facility] HEMATOLOGY MCH 28.5 27.0 - 10/10 [place] 31.0 [facility] HEMATOLOGY Hgb 6.4 14.0 - 10/10 <sup[place]sup[place] 18.0 Result Medical Comment: Center Critical Result(s) called to Breanne Suarez at 10/10/2014 06:42 byTLH. Read back [place]. HEMATOLOGY Hct 20.4 42.0 - 10/10 [place] 54.0 /2014 [facility] HEMATOLOGY WBC 12.0 3.7 - 10.4 10/10 [facility] HEMATOLOGY Basophils # 0.1 0.0 - 0.2 10/10 [facility] HEMATOLOGY Eosinophils # 0.2 0.0 - 0.5 10/10 [facility] HEMATOLOGY Lymphocytes # 1.3 1.0 - 5.5 10/10 [place] [facility] HEMATOLOGY Segs-Bands # 9.3 1.5 - 8.1 10/10 [facility] HEMATOLOGY Monocytes # 1.2 0.0 - 0.8 10/10 [facility] HEMATOLOGY Basophils 0.5 0.0 - 1.0 10/10 [facility] HEMATOLOGY Eosinophils 1.8 0.0 - 4.0 10/10 a s [facility] HEMATOLOGY Monocytes 9.6 2.0 - 12.0 10/10 [facility] HEMATOLOGY Lymphocytes 11.1 20.0 - 10/10 [place] 40.0 /2014 [facility] HEMATOLOGY Segs 77.0 45.0 - 10/10 [place] 75.0 [facility] HEMATOLOGY Basophils # 0.1 0.0 - 0.2 10/09 [facility] HEMATOLOGY Monocytes # 1.1 0.0 - 0.8 10/09 [facility] HEMATOLOGY Eosinophils # 0.2 0.0 - 0.5 10/09 [facility] HEMATOLOGY Eosinophils 1.6 0.0 - 4.0 10/09 s [facility] HEMATOLOGY Lymphocytes 8.7 20.0 - 10/09 [place] 40.0 [facility] Center HEMATOLOGY Segs 81.5 45.0 - 10/09 [place] 75.0 [facility] HEMATOLOGY Lymphocytes # 1.2 1.0 - 5.5 10/09 [facility] HEMATOLOGY Monocytes 7.7 2.0 - 12.0 10/09 [facility] HEMATOLOGY Segs-Bands # 11.3 1.5 - 8.1 10/09 [facility] HEMATOLOGY Basophils 0.5 0.0 - 1.0 10/09 [facility] HEMATOLOGY MCV 89.7 80.0 - 10/09 [place] 94.0 [facility] HEMATOLOGY Hgb 6.6 14.0 - 10/09 <sup>11</sup> [place] 18[place] Result Medical Comment: Center Critical Result(s) called to Breanne Hartley at 10/09/2014 06:38 byTLH. [place] back [place]. HEMATOLOGY MCH 28.0 27.0 - 10/09 [place] 31.0 [facility] HEMATOLOGY MCHC 31.2 32.0 - 10/09 [place] 36.0 [facility] HEMATOLOGY RBC 2.35 4.70 - 10/09 [place] 6.10 /2014 [facility] HEMATOLOGY WBC 13.8 3.7 - 10.4 10/09 [facility] HEMATOLOGY MPV 6.9 7.4 - 10.4 10/09 [facility] HEMATOLOGY Hct 21.1 42.0 - 10/09 [place] 54.0 /2014 [facility] HEMATOLOGY RDW 17.0 11.5 - 10/09 [place] 14.5 /2014 [facility] HEMATOLOGY Platelet 1025 133 - 450 10/09 <sup>13</sup> T Result Medical Comment: Center Critical Result(s) called to Breanne Naeem at 10/09/2014 06[facility] [place] back [place]. HEMATOLOGY RDW 16.9 11.5 - 10/08 14.5 [facility] HEMATOLOGY MCHC 31.3 32.0 - 10/08 [place] 36.0 /2014 [facility] HEMATOLOGY Platelet 906 133 - 450 10/08 [facility] HEMATOLOGY MPV 6.9 7.4 - 10.4 10/08 [facility] HEMATOLOGY MCH 28.3 27.0 - 10/08 [place] 31.0 [facility] HEMATOLOGY RBC 2.71 4.70 - 10/08 [place] 6.10 [facility] HEMATOLOGY Hgb 7.7 14.0 - 10/08 18.0 [facility] HEMATOLOGY Hct 24.5 42.0 - 10/08 [place] 54.0 [facility] HEMATOLOGY MCV 90.6 80.0 - 10/08 94.0 [facility] HEMATOLOGY WBC 15.3 3.7 - 10.4 10/08 [facility] CHEM PANEL Phosphorus 2.8 2.5 - 4.5 10/07 [facility] CHEM PANEL Magnesium Lvl 2.0 1.8 - 2.4 10/07 [place] [facility] CHEM PANEL Glucose Lvl 139 70 - 99 10/07 <sup>4</sup>I nterpretive Medical Data: Adult Center reference range values reflect the clinical guidelines
of the [place] [employer]. CHEM PANEL BUN 15 7 - 22 10/07 [facility] CHEM PANEL eGFR 96 10/07 <sup>1</sup>R esult Medical Comment: The Center eGFR is calculated using the CKD-EPI formula. In most young, healthy individuals the eGFR will be >90 mL/min/1.73m2 . The eGFR declines with age. An eGFR of 60-89 may be normal in some populations, particularly the elderly, for whom the CKD-EPI formula has not been extensively validated. Use of the eGFR is not recommended in the following populations:& lt;br/>
I ndividuals with unstable creatinine concentration s, including patients and those with serious co-morbid conditions.<b r/>
Patie nts with extremes in muscle mass or diet.

The data above are obtained from the National Kidney Disease Education Program (NKDEP) which additionally recommends that when the eGFR is used in patients with extremes of body mass index for purposes of drug dosing, the eGFR should be multiplied by the estimated BMI. CHEM PANEL CO2 27 24 - 32 10/07 2014 [facility] CHEM PANEL Calcium Lvl 7.6 8.5 - 10.5 10/07 [facility] CHEM PANEL Sodium Lvl 140 135 - 145 10/07 [facility]2014 [facility] CHEM PANEL Creatinine 0.8 0.5 - 1.4 10/07 [facility] 2014 [facility] CHEM PANEL Chloride Lvl 105 95 - 109 10/07 [facility] 2014 [facility] CHEM PANEL Potassium Lvl 4.2 3.5 - 5.1 10/07 [facility]2014 [facility] CHEM PANEL AGAP 12.2 10.0 - 10/07 [facility] 20.0 [facility] HEMATOLOGY Monocytes # 0.9 0.0 - 0.8 10/07 [facility] HEMATOLOGY Basophils # 0.1 0.0 - 0.2 10/07 [facility] 2014 [facility] HEMATOLOGY Eosinophils # 0.2 0.0 - 0.5 10/07 [facility] HEMATOLOGY Lymphocytes # 1.3 1.0 - 5.5 10/07 [facility] HEMATOLOGY Segs 81.1 45.0 - 10/07 [facility] 75.0 [facility] HEMATOLOGY Lymphocytes 10.1 20.0 - 10/07 [place] 40.0 [facility] HEMATOLOGY Monocytes 6.7 2.0 - 12.0 10/07 2014 [facility] HEMATOLOGY Eosinophils 1.5 0.0 - 4.0 10/07 [facility] HEMATOLOGY Basophils 0.6 0.0 - 1.0 10/07 2014 [facility] HEMATOLOGY Segs-Bands # 10.3 1.5 - 8.1 10/07 [facility] CHEM PANEL eGFR 96 10/06 <sup>2</sup>R esult Medical Comment: The Center eGFR is calculated using the CKD-EPI formula. In most young, healthy individuals the eGFR will be >90 mL/min/1.73m2 . The eGFR declines with age. An eGFR of 60-89 may be normal in some populations, particularly the elderly, for whom the CKD-EPI formula has not been extensively validated. Use of the eGFR is not recommended in the following populations:& lt;br/>
I ndividuals with unstable creatinine concentration s, including patients and those with serious co-morbid conditions.<b r/>
Patie nts with extremes in muscle mass or diet.

The data above are obtained from the National Kidney Disease Education Program (NKDEP) which additionally recommends that when the eGFR is used in patients with extremes of body mass index for purposes of drug dosing, the eGFR should be multiplied by the estimated BMI. CHEM PANEL Glucose Lvl 150 70 - 99 10/06 <sup>5</sup>I nterpretive Medical Data: Adult Center reference range values reflect the clinical guidelines
of the [place] [employer]. CHEM PANEL BUN 13 7 - 22 10/06 [facility] CHEM PANEL Potassium Lvl 4.0 3.5 - 5.1 10/06 [facility] CHEM PANEL CO2 28 24 - 32 10/06 2014 [facility] CHEM PANEL Sodium Lvl 139 135 - 145 10/06 [facility] CHEM PANEL Chloride Lvl 103 95 - 109 10/06 [facility] s [facility] CHEM PANEL Calcium Lvl 7.8 8.5 - 10.5 10/06 [facility] CHEM PANEL Creatinine 0.8 0.5 - 1.4 10/06 [facility] CHEM PANEL AGAP 12.0 10.0 - 10/06 [place] 20.0 [facility] CHEM PANEL Magnesium Lvl 2.1 1.8 - 2.4 10/06 [facility] CHEM PANEL Phosphorus 2.7 2.5 - 4.5 10/06 [facility]2014 [facility] URINE AND Occult Bld Negative Negative 10/05 [facility] STOOL Stl (10/05/14 3:37 PM) [facility] CHEM PANEL Phosphorus 1.9 2.5 - 4.5 10/05 2014 [facility] CHEM PANEL eGFR 91 10/05 <sup>3</sup>R esult Medical Comment: The Center eGFR is calculated using the CKD-EPI formula. In most young, healthy individuals the eGFR will be >90 mL/min/1.73m2 . The eGFR declines with age. An eGFR of 60-89 may be normal in some populations, particularly the elderly, for whom the CKD-EPI formula has not been extensively validated. Use of the eGFR is not recommended in the following populations:& lt;br/>
I ndividuals with unstable creatinine concentration s, including patients and those with serious co-morbid conditions.<b r/>
Patie nts with extremes in muscle mass or diet.

The data above are obtained from the National Kidney Disease Education Program (NKDEP) which additionally recommends that when the eGFR is used in patients with extremes of body mass index for purposes of drug dosing, the eGFR should be multiplied by the estimated BMI. CHEM PANEL AGAP 15.3 10.0 - 10/05 20.0 [facility] CHEM PANEL Chloride Lvl 104 95 - 109 10/05 [facility] CHEM PANEL CO2 24 24 - 32 10/05 [facility] CHEM PANEL Sodium Lvl 139 135 - 145 10/05 [facility] CHEM PANEL Potassium Lvl 4.3 3.5 - 5.1 10/05 [facility] CHEM PANEL Calcium Lvl 7.8 8.5 - 10.5 10/05 [facility] CHEM PANEL BUN 14 7 - 22 10/05 [facility] CHEM PANEL Creatinine 0.9 0.5 - 1.4 10/05 [facility] CHEM PANEL Glucose Lvl 80 70 - 99 10/05 <sup>6</sup>I nterpretive Medical Data: [facility] reference range values reflect the clinical guidelines
of the [place] [employer]. CHEM PANEL Magnesium Lvl 1.8 1.8 - 2.4 10/05 [facility] PARATHYROID Ca Norm WB 1.05 1.05 - 10/05 [place] PROFILE 1.25 [facility] PARATHYROID Ca Ion WB 1.04 1.05 - 10/05 [facility] [place] PROFILE 1. [facility] BLOOD BANK RBC product Product available 10/04 [place] RESULTS (10/04/14 9:54 AM) /2014 [facility] BLOOD BANK Antibody Scrn Negative 10/04 [place] RESULTS (10/04/14 4:42 AM) /2014 [facility] BLOOD BANK ABO/Rh B POS 10/04 [place] RESULTS /2014 [facility] BLOOD BANK RBC product Product available 10/02 [place] RESULTS (10/02/14 11:16 AM) /2014 [facility] PARATHYROID Ca Ion WB 1.09 1.05 - 10/02 [place] PROFILE . [facility] PARATHYROID Ca Norm WB 1.06 1.05 - 10/02 [place] PROFILE 07.10 [facility] CARDIAC CK MB Index 1.0 0.0 - 2.5 10/01 [place] ENZYMES /2014 [facility] CARDIAC CK MB 2.3 0.5 - 3.6 10/01 [place] ENZYMES /2014 [facility] CARDIAC Total CK 226 12 - 191 10/01 [facility] ENZYMES /2014 [facility] BLOOD BANK Antibody Scrn Negative 09/30 [place] RESULTS (09/30/14 12:43 AM) /2014 [facility] BLOOD BANK ABO/Rh B POS 09/30 [place] RESULTS /2014 [facility] CARDIAC Total CK 33 12 - 191 09/30 [place] ENZYMES /2014 [facility] CARDIAC Total CK 45 12 - 191 09/30 [facility] ENZYMES /2014 [facility] URINE AND UA Ketones TR 09/29 [facility] STOOL /2014 [facility] URINE AND UA Leuk Est Negative Negative 09/29 [facility] STOOL (09/29/14 2:36 PM) /2014 [facility] URINE AND UA Nitrite Negative Negative 09/29 [facility] STOOL (09/29/14 2:36 PM) /2014 [facility] URINE AND UA 4.0 0.1 - 1.0 09/29 [facility] STOOL Urobilinogen /2014 [facility] URINE AND UA Color Yellow Yellow 09/29 [facility] STOOL *NA* /2014 [facility] (09/29/14 2:36 PM) [place] URINE AND UA Turbidity Clear Clear 09/29 [facility] STOOL (09/29/14 2:36 PM) /2014 [facility] URINE AND UA Spec Grav 1.009 <=1.030 09/29 [facility] STOOL /2014 [facility] URINE AND UA pH 5.5 5.0 - 8.0 09/29 [facility] STOOL [facility] URINE AND UA Protein 10 mg/dL Negative 09/29 [facility] STOOL mg/dL /2014 [facility] URINE AND UA Glucose 200 mg/dL Negative 09/29 [facility] STOOL mg/dL [facility] URINE AND UA Bili Negative Negative 09/29 [facility] STOOL *NA* /2014 [facility] (09/29/14 2:36 PM) [place] URINE AND UA Blood Negative Negative 09/29 [facility] (09/29/14 2:36 PM) /2014 [facility] URINE AND UA WBC 1 0 - 5 09/29 [facility] URINE AND UA Sq Epi Few /LPF Few /LPF 09/29 [facility] URINE AND UA Mucus Few /LPF None Seen 09/29 [place] STOOL /LPF /2014 [facility] CARDIAC Troponin-I <0.02 0.00 - 09/29 [place] ENZYMES 0.40 /2014 [facility] CARDIAC Troponin-T 0.078 0.000 - 09/29 [place] ENZYMES 0.100 [facility] MYOGLOBIN Myoglobin 63 25 - 72 09/29 /2014 [facility] CARDIAC Troponin-T <0.010 0.000 - 09/29 [place] ENZYMES 0.100 [facility] CARDIAC Troponin-I 0.03 0.00 - 09/29 [place] ENZYMES 0.40 /2014 [facility] MYOGLOBIN Myoglobin 41 25 - 72 09/29 [facility] CARDIAC Troponin-T <0.010 0.000 - 09/29 [facility] ENZYMES 0.100 [facility] CARDIAC Troponin-I <0.02 0.00 - 09/29 [place] ENZYMES 0.40 [facility] MYOGLOBIN Myoglobin 37 25 - 72 09/[address] [place] [address] URINE AND UA Leuk Est Negative Negative 09/27 [facility] (09/27/14 6:11 PM) /2014 [facility] URINE AND UA WBC 1 0 - 5 09/27 [facility] /2014 [facility] URINE AND UA Sq Epi Few /LPF Few /LPF 09/27 [facility] URINE AND UA Bacteria Occasional None Seen 09[place]OL /HPF /HPF /2014 [facility] URINE AND UA pH 6.0 5.0 - 8.0 09/27 [facility] STOOL /2014 [facility] URINE AND UA Spec Grav 1.011 <=1.030 09/27 [facility] STOOL /2014 [facility] [place] URINE AND UA Glucose >=1000 Negative 09/27 [facility] mg/dL mg/dL [facility] URINE AND UA Protein 20 mg/dL Negative 09/27 [facility] mg/dL [facility] URINE AND UA Color Yellow Yellow 09/27 [facility] *NA* /2014 [facility] (09/27/14 6:11 PM) [place] URINE AND UA Blood Negative Negative 09/27 [facility] (09/27/14 6:11 PM) /2014 [facility] URINE AND UA Bili Negative Negative 09/27 [facility] *NA* /2014 [facility] (09/27/14 6:11 PM) [place] URINE AND UA Nitrite Negative Negative 09/27 [facility] (09/27/14 6:11 PM) [facility] URINE AND UA 8.0 0.1 - 1.0 09/27 [facility] Urobilinogen /2014 [facility] URINE AND UA Turbidity Clear Clear 09/27 [facility] (09/27/14 6:11 PM) /2014 [facility] URINE AND UA Ketones Negative Negative 09/27 [facility] mg/dL mg/dL /2014 [facility] HEMATOLOGY Anti-Xa Low 0.31 09/26 <sup>14</sup> [facility] Molecular /2014 [facility] Heparin Data: Center Recommended therapeutic range for Low Molecular Weight Heparin
f or specimen collected 4hrs after injection: 0.40 -1.10 IU/mL
for Q 12 hr dosing, 1.00 -2.00 IU/mL for Q 24 hr dosing. These
ran ges cannot be used for monitoring unfractionate d ("regular")<b r/>heparin. PARATHYROID Ca Norm WB 1.13 .05 - 09/26 [facility] PROFILE 1. [facility] PARATHYROID Ca Ion WB 1.15 1.05 - 09/26 [facility] PROFILE 1. [facility] CHEM PANEL Vitamin D, 17 30 - 100 09/21 <sup>7</sup>I [facility] 25-[place], nterpretive Medical Data: Center Reference range is based on recommendatio ns in the Endocrine<br/ >Society Clinical Practice Guideline (J Clin Endocrinol Metab
201 1;[id number]) SPECIAL Hgb A1C 12.9 <=5.6 % 09/21 [facility] CHEMISTRY /2014 [facility] THYROID TSH 1.770 0.360 - 09/21 [place] PANEL 3.740 /2014 [facility] URINE AND UA Spec Grav 1.015 <=1.030 09/20 [facility] STOOL /2014 [facility] URINE AND UA Turbidity Clear Clear 09/20 [facility] (09/19/14 10:57 PM) /2014 [facility] URINE AND UA Ketones 40 mg/dL Negative 09/20 [facility] mg/dL /2014 [facility] URINE AND UA Glucose >=1000 Negative 09/20 [facility] mg/dL mg/dL /2014 [facility] URINE AND UA Leuk Est Negative Negative 09/20 [facility] (09/19/14 10:57 PM) [facility] URINE AND UA Nitrite Negative Negative 09/20 [facility] (09/19/14 10:57 PM) [facility] URINE AND UA 0.2 0.1 - 1.0 09/20 [facility] Urobilinogen /2014 [facility] URINE AND UA Blood Small Negative 09/20 [facility] *ABN* /2014 [facility] (09/19/14 10:57 PM) [place] URINE AND UA pH 5.0 5.0 - 8.0 09/20 [facility] STOOL /2014 [facility] URINE AND UA Bili Negative Negative 09/20 [facility] *NA* /2014 [facility] (09/19/14 10:57 PM) [place] URINE AND UA Protein Negative Negative 09/20 [facility] (09/19/14 10:57 PM) [facility] URINE AND UA Color Yellow Yellow 09/20 [facility] *NA* /2014 [facility] (09/19/14 10:57 PM) Center URINE AND UA Bacteria Few /HPF None Seen 09[place] /HPF /2014 [facility] URINE AND UA WBC None Seen None Seen 09/20 [facility] (09/19/14 10:57 PM) [facility] URINE AND UA RBC 0-2 /HPF 0 - 2 09/20 [facility] STOOL /2014 [facility] URINE AND UA Sq Epi None Seen Few 09/20 [facility] (09/19/14 10:57 PM) [facility] BLOOD BANK ABO/Rh B POS 09/19 [facility] RESULTS /2014 [facility] BLOOD BANK Antibody Scrn Negative 09/19 [place] RESULTS (09/19/14 6:04 PM) /2014 [facility] CHEM PANEL Lactic Acid 2.2 0.5 - 2.2 09/19 [place] L[place] [facility] HEMATOLOGY Estimated % 1.7 0.0 - 7.5 09/19 [place] L[place] [facility] HEMATOLOGY Rapid TEG Citrated 09/19 [facility] Sample Type Whole /2014 [facility] HEMATOLOGY R-time 0.7 0.4 - 0.7 09/19 [facility] HEMATOLOGY [place] 0.5 09/19 [facility] HEMATOLOGY ACT (TEG) 113 86 - 118 09/19 [facility] HEMATOLOGY Angle 75 64 - 80 09/19 [facility] HEMATOLOGY K-time 1.2 0.6 - 2.3 09/19 [facility] HEMATOLOGY G-value 10.2 5.0 - 11.6 09/19 [facility] HEMATOLOGY Max Amp 67 52 - 71 09/19 [facility] HEMATOLOGY Plt Morph Normal 09/19 [facility] (09/19/14 6:04 PM) [facility] HEMATOLOGY RBC Morph Normal 09/19 [facility] (09/19/14 6:04 PM) [facility] IMMUNOLOGY [place]-Hep C Negative Negative 09/19 [facility] as Ab *NA* /2014 [facility] (09/19/14 6:04 PM) Center TOXICOLOGY Etoh (%) <0.003 09/19 <sup>8</sup>I [place] nterpretive Medical Data: Ethanol Center testing results should be used for medical purposes only.
Neg ative Range: <0.003%
T oxic Range: >0.25% TOXICOLOGY Ethanol Lvl <3 09/19 <sup>9</sup>I nterpretive Medical Data: Center Negative Range: <3 mg/dL
Tox ic Range: >250 mg/dL Pathology Reports No Data Provided for This Section Diagnostic Reports Report Value Date Source Chest 1view DX EXAM: XR CHEST 1 VIEW 02/21/2017 [facility] edical DATE: 02/21/2017 3:00 AM CDT Cente r INDICATION: Respiratory distress - trauma COMPARISON: Chest radiograph 02/20/2017 TECHNIQUE: AP chest FINDINGS: Lines, tubes and hardware: None. Lungs and pleura: An opacity seen along the left lateral lung adjacent to multiple rib fractures, possibly hematoma, pleural or extrapleural. No definite pneumothorax is seen within the limitations of t his semierect film. The costophrenic sulci are s harp. Heart and mediastinum: The cardiomediastinal zainab houette is stable. Bones: Multiple acute and ch ronic left-sided rib fractures are noted. Acute displaced left scapular fracture is also seen. IMPRESSION: 1. No significant interval change compared to t he prior study. Shoulder wo contrast EXAM: CT LEFT SHOULDER WITHOUT CONTRAST 12/2016 [facility] w/3D CT DATE: 02/19/2017 12:35 PM CDT Cent er INDICATION: Fracture - 3D recon scapula, w/ joshua ral subtraction. COMPARISON: CT chest abdomen and pelvis 02/19/2017 TECHNIQUE: Volumetric acquis ition of the left shoulder without contrast. Axial, sagittal and coronal reconstructions. IV contrast: None. DLP: 268 mGy-cm FINDINGS: Mildly displaced, partially healed comminuted fracture of the scapular body is redemonstrated. The a component of acute fracture is not entirely excluded. No intra-articular extension. There is mildly d isplaced extra-articular fra cture of the peripheral left acromial process, unchanged in appearance compared to recent prior. Mildly displaced fractures of the left third through sixth ribs are partially visualized. Moderate degene rative changes of the glenohumeral and acromioclavicular joints are noted. Extensive subchondral cystic changes seen involving the posterior lateral humeral head. Soft tissues: A moderate siz ed soft tissue hematoma seen surrounding the fracture and tracking along the superior and posterior aspects of the shoulder. There is fatty atrophy of the medial teres minor muscle. No radiopaque foreig n body or subcutaneous emphysema. No pneumarthrosis. IMPRESSION: 1. Mildly displaced, extra articular fracture o f peripheral left acromion. 2. Mildly displaced, partia lly healed comminuted fracture of the scapular body. Component of acute on chronic fracture is not excluded. No significant change in alignment compared to recent prior. 3. Mildly displaced fractur es of the left third through sixth ribs, some of which are partially healed. 4. Moderate size soft tissu e hematoma and stranding along the posterior superior aspect of the shoulder. Chest 1view DX [facility]: [facility]2017 3:00 AM CDT Cente r INDICATION: s/p rib fxs - s/p rib fxs COMPARISON: Chest radiograph 1 day(s) prior. TECHNIQUE: AP chest FINDINGS: Lines and tubes: Unchanged. Lungs and pleura: Probable s mall volume of hematoma either pleural or extrapleural associated with left-sided rib fractures. No new pulmonary or pleural abnormalities. No ne w significant consolidation. Heart and mediastinum: Unchanged mediastinal con tours. Left chest wall deformity associated with left-s ided rib fractures. Acute left scapular fractures. IMPRESSION: 1. No significant interval changes relative to the comparison exam. Shoulder series DX EXAM: XR LEFT SHOULDER 3 VIEWS 02/19/2017 [facility] DATE: 02/19/2017 10:[address] INDICATION: Trauma. COMPARISON: Left shoulder radiographs on 10/29/19 and 09/19/2014. TECHNIQUE: AP views in inter nal and external rotation, and an axillary view of the shoulder. UT SECTION: ER. FINDINGS: Multiple [id number], d isplaced and segmental rib fractures of the left hemithorax. Please refer to the concurrent CT for further details. Acute on chronic fracture of the left scapular body from the medial to the lateral wall, near the edge of the glenohumeral joint. No clear evidence of intra-articular extension is identified. Mildly displaced acute fracture of the left acro mion process. No joint dislocation of the glenohumeral or acromioclavicular joints is identified On the axillary view, a mixe d permeative/moth-eaten appearance of the proximal humerus has significantly worsened when compared to the left shoulder radiographs of 10/28/2014 and 09/19/2014. IMPRESSION: 1. A mixed permeative/moth- eaten appearance of the proximal humerus has significantly worsened when compared to the left shoulder radiographs of 10/28/2014 and 09/19/2014. 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 2. Acute, mildly displaced fracture left acromi on process. 3. Multiple acute on chroni c, displaced, segmental rib fractures of the left hemithorax. Please refer to the concurrent CT for further details. Findings were discussed with Dr. Warren EC, via phone, on 02/19/2017 at 1203 hours. Chest/Abdomen/Pelvis EXAM: CT CHEST WITH CONTRAST 02/19/2017 [facility] IV contrast CT EXAM: CT ABDOMEN AND PELVIS WITH CONTRAST Center DATE: 02/19/2017 10:16 AM CDT. INDICATION: SNF Trauma. ADDITIONAL INFO: 67-year-old man with right renal cell carcinoma status post nephrectomy. Prior history of trauma. Presents today with new SNF trauma. COMPARISON: CT chest abdomen and pelvis with con trast on 09/19/2014. TECHNIQUE: Volumetric CT acq uisition of the chest, abdomen and pelvis following intravenous administration of contrast. Delayed imaging was then performed through the abdomen and pelvis, using a radiati on reduction technique. Axial, coronal and sagit ina reformats. Contrast phases: Venous and delayed. IV contrast: 125 mL of Visipaque 320. Oral contrast: None. DLP: 3022 mGy-cm UT SECTION: ER. FINDINGS: Lines and tubes: None. Lower Neck: Supraclavicular soft tissues are unr emarkable. Thoracic Aorta and Mediastin um: No mediastinal hematoma or thoracic aortic injury. Normal heart size. No pericardial effusion. Lungs, Pleura, Diaphragm: Ti ny left apical pneumothorax (image 14, series 6 for example). Dependent atelectasis of both lung bases. No pulmonary contusions are identified. No pleural effusion. Liver and biliary tree: No i njury. No focal hepatic lesions. No intrahepatic biliary ductal dilatation. Gallbladder: Normal. No CT evidence of gallstone s. No injury. Pancreas: No injury. Spleen: No injury. No splenomegaly. Adrenals: No adrenal nodules bilaterally. No inj ury. Kidneys and ureters: 1 cm no nenhancing simple appearing renal cyst about the upper pole of the left kidney (coronal image 42). No stones, suspicious masses, or hydronephrosis is identified. Status post right nephrectomy. Bladder: Normal. No injury. Reproductive organs: No injury. Gastrointestinal tract: Sigm oid diverticula without adjacent inflammatory change. No bowel obstruction. No bowel injury is identified. Normal appendix (axial image 51). Peritoneum and retroperitoneum: No fluid collect ions or free air. Lymph nodes: No lymphadenopathy. Vasculature: No vascular injury is identified. Spine/ Bones: * 3-9 left lateral rib frac tures; 5-9 are segmental, 3-7 are acute on chronic, 8 is acute and nondisplaced, 9 is acute and displaced. * 5-12 acute left posterior rib fractures; 7-12 are extra-articular but in close proximity to the costovertebral junction. * Oblique, mildly displaced and mildly comminuted acute on chronic fracture of the left scapular body. The fracture line extends to the lateral wall at the inferior edge of the glenohumeral joint without clear intra-articular involvement identified. * Mildly displaced, acute e xtra-articular fracture of the left acromion process (image 30, series 7). * Multiple ovoid lucencies are again seen about the posterior iliac bones bilaterally. Example lesion on the right measures 1.3 cm AP and is stable in size when compared to 09/19/2014. * Posterior spinal fixation hardware at L4-L5 with an intervening disc spacer. No perihardware lucency or evidence of hardware failure is identified. There appears to be some evidence of partial incorp oration of the disc spacer. Degenerative disc changes of the lower lumbar spine are most pronounced at L3-L4. * No acute abnormality of t he spine is identified. Multilevel flowing anterior osteophyte complexes are seen about the mid to lower thoracic spine, compatible with diffuse idiopathic skeletal hyperostosis (DISH). Soft tissues: Intramuscular hemorrhage/joselito ma about the lower, periscapular region (image 23, series 6). IMPRESSION: 1. Tiny left apical pneumothorax. 2. 3-9 left rib fractures, 5-9 are segmental. * 3-9 left lateral rib frac tures; 3-7 are acute on chronic, 8 is acute and nondisplaced, 9 is acute and displaced. * 5-12 acute left posterior rib fractures; 7-12 are extra-articular but in close proximity to the costovertebral junction. 3. Iagxg-zy-[id number], obliqu e, mildly displaced and mildly comminuted fracture of the left scapular body. The fracture line extends from the medial to the lateral wall near the inferior edge of the doug ohumeral joint without clear intra-articular involvement identified. There is associated intramuscular hemorrhage/edema about the lower, periscapular region without evidence of active extravasation. 4. Acute, mildly displaced, extra-articular fracture of the left acromion process. 5. Multiple ovoid lucencies are again seen about the posterior iliac bones bilaterally. They appear overall stable in size and number when compared to 09/29/2014, however they are still suspicious for lytic skeletal metastatic disease. 6. Posterior spinal fixation hardware a t L4-L5 without hardware complication. 7. Status post right nephrectomy. Findings were discussed with Dr. Cummings EC, via phone, on 02/19/2017 at 1117 hours. Brain wo contrast CT CT HEAD WITHOUT CONTRAST 02/19/2017 [facility] DATE: 02/19/2017 at 10:27 AM. Cent er COMPARISON: None. HISTORY: - senior living with loc. TECHNIQUE: Contiguous axial images of the brain were obtained without intravenous contrast administration. Sagittal and coronal reformatted images were also provided. DLP: 1091.4 mGy-cm. FINDINGS: There are no acute hemorrhag es or acute infarcts. The rosas-white interfaces are well defined. There is prominence of the c ortical sulci, fissures, cisterns and ventricles consistent with cortical atrophy appropriate for the patient's stated age of years. There are no acute bony abnormalities. The benjamín rium is intact. IMPRESSION: 1. No acute cranial or intracranial abnormality. 2. Age related volume loss. Spine cervical wo EXAM: CT CERVICAL SPINE WITHOUT CONTRAST 02/19 [facility] contrast CT DATE: 02/19/2017 10:[address] INDICATION: SNF. COMPARISON: CT cervical spine without contrast o n 09/19/2014. TECHNIQUE: Volumetric acquis ition of the cervical spine without contrast. Axial, sagittal and coronal reconstructions. IV contrast: None. DLP: 767 mGy-cm UT SECTION: ER FINDINGS: The spine is imaged from the skull base to the u pper half of T3. Tiny left apical pneumothorax (image 111, series 2). No acute fracture or malalignment of the cervica l spine is identified. Multilevel degenerative moffett ges throughout the cervical spine, most pronounced from C4-C5 to C6-C7, including disc space narrowing, subchondral cystic and sclerotic changes, anterior and small posterior osteophytes. Bilateral face t arthropathic changes with notable bony ankylosis at C2-C3 on the left as well as C2-C3 and C4-C5 on the right. Minimal soft tissue stranding about the upper po sterior neck soft tissues. No radiopaque foreign body is identified. IMPRESSION: 1. Tiny left apical pneumothorax. 2. No acute fracture or malalignment of the cer vical spine. 3. Multilevel degenerative changes of the cervi blanquita spine. Findings were discussed with Dr. Warren , in person, on 02/19/2017 at approximately 1136 hours. Pelvis AP DX EXAM: XR PELVIS 1 VIEW 02/19/2017 [facility] DATE: 02/19/2017 10:[address] INDICATION: SNF Trauma. COMPARISON: None. TECHNIQUE: Frontal pelvis. FINDINGS: Limited evaluation due to overlying backboard ar tifact. Partially imaged posterior s mary beth fixation hardware projects over the lower lumbar spine. Surgical clips overlie this region, also. No acute fracture or malalignment is identified. No acute soft tissue abnormality is identified. IMPRESSION: No acute radiographic abnormality of the pelvis. Chest 1view DX EXAM: XR CHEST 1 VIEW 02/19/2017 [facility] DATE: 02/19/2017 10:[address] INDICATION: Trauma. COMPARISON: Chest radiograph on 10/29/2014. TECHNIQUE: AP chest. Limited evaluation due to o verlying backboard artifact. UT SECTION: ER. FINDINGS: Lines, tubes and hardware: None. Lungs and pleura: * Low lung volumes with left basilar subsegment al atelectasis. * The costophrenic angles appear sharp. Heart and mediastinum: The heart size is normal for technique. Bones: * Multiple displaced and se gmental fractures of the left hemithorax. Please see the recent CT for further details. * Partially imaged left scapular fracture. IMPRESSION: 1. Low lung volumes with left basilar subsegmen ina atelectasis. 2. Multiple displaced and s egmental fractures of the left hemithorax. Please see the recent CT for further details. 3. Partially imaged left scapular fracture. Hip 2 views DX EXAM: XR RIGHT HIP 2 VIEWS AND PELVIS 1 VIEW [facility] DATE: 11/09/2014, 18:01 hours. INDICATION: Trauma. COMPARISON: Right femur radiographs dated 09/20/19 15. TECHNIQUE: AP and frog-leg lateral radiographs of the right hip and a single AP radiograph of the pelvis DISCUSSION: No acute fractur e or malalignment is identified. There is bilateral patellofemoral osteophyte formation and mild joint space narrowing. A right hip capsular calcification is noted. Lumbar sp ine hardware is partially imaged. No soft tissu e abnormality is identified. IMPRESSION: 1. No acute abnormality identified. 2. Mild bilateral hip osteoarthrosis. Chest 1view DX EXAM: Chest 1view , 10/29/2014 [facility] DATE: October 29, 2014 02:51:00 AM INDICATION: Absent of breath sounds /See Clinic Indication . FINDINGS: A portable frontal chest radiograph is compared to October 28, 2014 at 1414 hours. Persisting left pleural effusion and left mid and lower lung opacities. Left lateral chest wall swelling and subc utaneous emphysema is again noted. No new pulmonary or pleural-based abnormality is identified. The cardiomediastinal silhouette, remaining soft tissues and osseous structures are unchanged. IMPRESSION: No significant interval change in the radiograph ic appearance of the chest.. Shoulder series DX EXAM: XR LEFT SHOULDER 3 VIEWS 10/28/2014 [facility] DATE: 10/28/2014 at 1932 hours. INDICATION: Trauma. COMPARISON: CT chest abdomen and pelvis on 2014 at 1729 hours. TECHNIQUE: AP views in inte rnal and external rotation and an axillary view of the left shoulder. DISCUSSION: There is a persi stently displaced left scapular body fracture with evidence of callus formation. Multiple left-sided rib fractures are redemonstrated. Few, subtle foci of air are noted within the left axilla. IMPRESSION: Persistently dis placed left scapular body fracture with early remodeling. Chest/Abdomen/Pelvis EXAM: CT CHEST WITH CONTRAST 10/28/2014 [facility] IV contrast CT EXAM: CT ABDOMEN AND PELVIS WITH CONTRAST Center DATE: 10/28/2014 at 1729 hours. INDICATION: Trauma. COMPARISON: Chest and abdomen/pelvis with IV con trast on 10/13/2014. TECHNIQUE: Volumetric acquis ition of the chest, abdomen and pelvis is obtained following the intravenous administration of 99 cc of Omnipaque 350. Delayed images are obtained through the kidneys and bl adder using a radiation redu ction technique. Axial and coronal reconstructions of the torso, as well as sagittal reconstructions of the spine and parasagittal MIP reconstructions of the aorta are provided. DISCUSSION: CHEST WALL: There is a 12.3 x 7.4 x 3.1 cm peripherally enhancing fluid collection within the left chest wall is present, with overall decrease in fluid in this region, however with rim enhancement new compared with the prior stud y. The collection extends along the posterior lateral chest wall to the region of the glenohumeral joint, with small residual foci of subcutaneous emphysema. LUNGS/ PLEURA: Airspace cons olidation within the left lower lobe is improved. A multiloculated left pleural effusion has improved since the prior study. A moderate right pleural effusion has decreased i n size since the previous st udy. Hazy groundglass opacities within the right lung anteriorly have resolved. LYMPH NODES: Left hilar soft tissue fullness as well as prominent, subcentimeter left axillary lymph nodes are likely reactive in etiology. CARDIOVASCULAR The heart size is unchanged. No cardiac or vascu lar injury is identified. GI TRACT / PERITONEUM: The v isible portions of small bowel and colon are of normal caliber. The appendix is normal (5/). The stomach is contracted. There is no intraperitoneal free air or free fluid. SOLID ORGANS: The liver, ailin e ducts, adrenals, spleen, and pancreas are unremarkable. The gallbladder again demonstrates biliary sludge. KIDNEYS / URETER / BLADDER: A 5.2 x 5.7 cm predominantly solid, enhancing right renal mass with internal septations and cystic components is compatible with a malignant neoplasm such as renal cell carci noma. There is prompt bilate rally symmetric excretion of contrast in both renal collecting systems without evidence of obstruction. The bladder is unremarkable. PELVIS: The prostate and visible organs of repro duction are unremarkable. VASCULAR: The visible aorta and IVC demonstrate a normal caliber. BONES: Multiple left-sided 3 -9 displaced fractures and a left scapular fracture are redemonstrated. No new fractures are identified. Findings #1 and #2 were disc ussed with Dr. Sanchez, via phone on 10/28/2014 1800 hours. IMPRESSION: 1. 12.3 x 7.4 x 3.1 cm perip herally enhancing fluid collection within the left chest wall. Overall decrease in size of the left chest wall soft tissue swelling and hematoma, but with early organization of this site. Residual foci of emphysema 10 days post chest tube removal. Correlate for abscess, versus organizing hematoma or seroma. Collection extends to the level of the left glenohumeral joint. 2. Stable, enhancing left hi p fluid collection, consistent with organizing Eugene-Becky 3. Decreasing pleural effusions and airspace opa cities. 4. The remainder of the exam has not significantly changed. Unchanged 5.2 x 5.7 cm lesion at the upper pole of the right kidney, representing renal cell carcinoma until proven otherwise. Chest 1view DX EXAM: XR CHEST 1 VIEW 10/28/2014 [facility] DATE: October 28, 2014 02:17:00 PM INDICATION: Fever. TECHNIQUE: A single portable chest radiograph is compared to 10/18/2014. DISCUSSION: Skin chelsea have been remov ed from the left chest wall. Multiple left-sided rib fractures and left extrapleural fluid or thickening are again demonstrated and similar to the prior study. The left scapu lar fracture is also unchang ed. No pneumothorax is identified. No manuel consolidation is seen. No other new pulmonary or pleural-based abnormality is identified. The cardiomediastinal silhouette, remai leila soft tissues and osseous structures are als o unchanged. IMPRESSION: 1. No pulmonary consolidation or other new abnor mality since the prior study. 2. Multiple displaced left-s ided rib fractures and left scapular fracture, unchanged from the prior examination. 3. Left pleural fluid or thickening again seen a nd unchanged as well. Chest 1view DX EXAM: XR CHEST 1 VIEW 10/18/2014 [facility] INDICATION: Tube placement/removal/reposition COMPARISON: 10/18/2014 at 0915 TECHNIQUE: Single AP view of the chest DISCUSSION: There are multip le displaced left rib fractures with deformity of the left chest wall and overlying subcutaneous emphysema. Comminuted fracture of the left scapula is noted. Patient is status post thoracotomy. A left-sided effusion is dem onstrated and may be loculated. This is similar to yesterday's exam. No definite pneumothorax. Left-sided chest tube has been removed. Left-sided airspace disease ma y be in part from subsegment al atelectasis, while pneumonia is difficult to exclude. The cardiomediastinal silhouette is stable. IMPRESSION: Interval removal of a left-sided chest tube. Otherwise unchanged appearance. Chest 1view DX Chest one view, October 18, 2014 at 9:15 a.m. 015 [facility] HISTORY: 64-year-old man with abnormal chest christina nds. FINDINGS: Comparison is made to yesterday. Again seen are displaced lef t-sided rib fractures resulting in deformity of the left chest wall and diminution in the size of the left hemithorax. There is a displaced fracture of the left scapula. Subc utaneous emphysema is seen i n the left chest wall. The patient is status post left thoracotomy. The cardiomediastinal silhou ette is stable. A left pleural effusion is mostly seen extending laterally from apex to base and may be loculated adjacent to the rib fractures. A left apical chest tube remains in place. There are patchy alveolar op acities in the left lower lobe which could be due to atelectasis and/or pneumonia. Platelike atelectasis is seen in the left upper lobe and right lower lobe. IMPRESSION: No significant change since yesterda y morning. Chest 2 views DX CHEST 2 VIEWS dated 2014-10-17 09:06:00 015 [facility] COMPARISON: Yesterday CLINICAL INDICATION: Tube placement/removal/repo sition IMPRESSION: Frontal and lateral chest radiographs are submit odilia for interpretation. Stable cardiac silhouette. One of the left-sided chest tubes has been removed. Stable positioning of the remaining left-sided chest tube with a small left hydropneumothorax. Post surgical changes of left thoracotomy are reidentif ied. Scattered subsegmental atelectasis througho ut the left lung. Mild interval increase in left chest wall subcut aneous emphysema. Stable left-sided rib fractu res with pleural/extrapleural hematomas are again noted. Left scapular fracture as before. Mild degenerative changes of the thoracic spine. Chest 1view DX EXAM: XR CHEST 1 VIEW 10/16/2014 [facility] INDICATION: Tube placement/removal/reposition COMPARISON: 10/15/2014 at 1540 TECHNIQUE: Single AP view of the chest DISCUSSION: Left-sided chest tubes show stable p ositioning. Small left apical pneumothorax is demonstrated. Peripheral and left retrocar diac airspace opacity is not significant changed. Multiple left-sided rib fractures are demonstrated. Small to moderate left-sided effusion again seen. The cardiomediastinal silhouette is stable. IMPRESSION: Small left apical pneumothorax. Left pleural fluid and multifocal atelectasis or consolidation is again seen. Chest 2 views DX EXAM: CHEST 2 VIEWS 10/15/2014 [facility] DATE: October 15, 2014 03:40:00 PM INDICATION: Tube placement/removal/reposition COMPARISON: Prior study obtained 10/14/2014 TECHNIQUE: PA and lateral chest radiographs FINDINGS: The cardiomediast inal silhouette is within normal limits. The 2 left-sided chest tubes are unchanged in position. There is persistent left multifocal atelectasis a translatable pneumothorax i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
--- OUTSIDE RECORDS SUMMARY | 2019-11-03 22:29 | XMS REPORT | Summary of Care ---
:1950 Author Encounter [facility](CAILIN) [id number] Date(s): 09/19/14 - 10/10/14 [facility] [address] [place] [address] Professional Services provided by [facility] [place] [address]- Discharge Disposition: Home Physician Attending: Jones Saul MD Physician Admitting: Jones Saul MD Vital Signs Most recent to oldest 1 2 3 [Reference Range]: Height 190.5 cm 190.5 cm (09/20/14 12:24 AM) (09/19/14 5:47 PM) Temperature Oral [96.4-99.1 98.0 DegF 98.2 DegF 98.8 DegF DegF] (10/10/14 4:00 AM) (10/09/14 11:45 PM) (10/09/14 7: 33 PM) Blood Pressure [90-140/60-90 147/86 mmHg 128/79 mmHg 145 /86 mmHg mmHg] *HI* (10/10/14 1:00 PM) *HI* (10/10/14 4:09 PM) (10/10/14 8:49 AM) Respiratory Rate [14-20 BRMIN] 18 BRMIN 16 BRMIN 1 4 BRMIN (10/10/14 4:09 PM) (10/10/14 1:00 PM) (10/10/14 8:4 9 AM) Peripheral Pulse Rate [60-100 106 bpm 67 bpm 99 bpm bpm] *HI* (10/10/14 1:00 PM) (10/10/14 8:49 AM) (10/10/14 4:09 PM) Weight 88.636 kg 88.636 kg (09/20/14 12:24 AM) (09/19/14 5:47 PM) Body Mass Index 24.42 m2 24.42 m2 (09/20/14 12:24 AM) (09/19/14 5:47 PM) Problem List Condition Effective Dates Status Health Status Informant DM (diabetes mellitus)(Confirmed) Resolved HTN (hypertension)(Confirmed) Resolved Allergies, Adverse Reactions, Alerts Substance Reaction Severity Status NKDA Active Medications acetaminophen 1,000 mg, 2 tab, Route: PO, Drug form: TAB, Q6H, Dosing Weight 88.636, kg, Start date: 10/04/14 18:00:00, Duration: 30 day, Stop date: 11/03/14 12:00:00 Notes: . (Same as: Tylenol Extra Strength) Start Date: 10/04/14 Stop Date: 10/09/14 Status: DiscontinuedAltace 10 mg, 2 cap, Route: PO, Drug form: CAP, Daily, Start date: 10/04/14 9:00:00, Duration: 30 day, Stopdate: 11/02/14 9:00:00 Notes: (Same as:Altace) Start Date: 10/04/14 Stop Date: 10/10/14 Status: Discontinuedaspirin 81 mg tablet, enteric coated 81 mg = 1 tab, PO, Daily, 0 Refill(s) Start Date: 09/20/14 Status: Orderedatorvastatin 20 mg, 1 tab, Route: PO, Drug form: TAB, Bedtime, Dosing Weight 88.636, kg, Start date: 10/03/14 21:00:00, Duration: 30 day, Stop date: 11/01/14 21:00:00 Notes: (Same As: Lipitor) Start Date: 10/03/14 Stop Date: 10/10/14 Status: Discontinuedatorvastatin 20 mg oral tablet 20 mg = 1 tab, PO, Bedtime, 0 Refill(s) Start Date: 09/20/14 Status: Orderedbisacodyl 10 mg, 1 supp, Route: WV, Drug form: SUPP, ONCE, Dosing Weight 88.636, kg, Start date: 09/23/14 8:59:00, Stop date: 09/23/14 8:59:00 Notes: (Same As: Dulcolax, Bisco-Lax) Start Date: 09/23/14 Stop Date: 09/23/14 Status: Completedbupivacaine liposome 20 mL, Route: InFILtration(local), Drug Form: INJ, ONCE, Start date: 09/30/14 17:00:00, Stop date: 09/30/14 17:00:00 Notes: (Same as: Exparel) NOT FOR IV use Postoperative analgesia: Infiltration (local): Dose is based on surgical site and volume required to cover the area (in general, the maximum total dose is 266 mg).Bunionectomy: 7 mL into the tissues surrounding the osteotomy and 1 mL into the subcutaneous tissue of the surgical site (total dose = 8 mL [106 mg])Hemorrhoidectomy: 30 mL (20 mL vial diluted with 10 mL NS) divided and administered as 6 injections of 5 mL each (total dose = 30 mL [266 mg]) Start Date: 09/30/14 Stop Date: 09/30/14 Status: CompletedCeleBREX 200 mg, 2 cap, Route: PO, Drug form: CAP, BID, Dosing Weight 88.636, kg, Start date: 09/20/14 9:00:00, Duration: 30 day, Stop date: 10/19/14 17:00:00 Notes: NSAID. Please check indication. Not for seizure. (Same As: CeleBREX) Start Date: 09/20/14 Stop Date: 09/22/14 Status: Discontinuedcelecoxib 200 mg, 2 cap, Route: PO, Drug form: CAP, Q12H, Dosing Weight 88.636, kg, Priority: NOW, Start date:09/25/14 15:37:00, Duration: 48 hr, Stop date: 09/27/14 9:00:00 Notes: NSAID. Please check indication. Not for seizure. (Same As: CeleBREX) Start Date: 09/25/14 Stop Date: 09/26/14 Status: DiscontinuedColace 100 mg oral capsule 100 mg, 1 cap, Route: PO, Drug form: CAP, BID, Dosing Weight 88.636, kg, Start date: 09/22/14 17:00:00, Duration: 30 day, Stop date: 10/22/14 9:00:00 Notes: (Same as: Colace) Start Date: 09/22/14 Stop Date: 10/10/14 Status: DiscontinuedColace 100 mg oral capsule 100 mg = 1 cap, PO, BID, take twice daily while taking [place] or tramadol for pain, # 60 cap, 1 Refill(s) Special Instructions: take twice daily while taking [place] or tramadol for pain Start Date: 10/10/14 Status: OrderedDextrose 50% Syringe 25 gm, 50 mL, Route: IVP, Drug Form: INJ, Dosing Weight 88.636, kg, PRN, PRN Blood Glucose Results, Start date: 09/20/14 0:17:00, Duration: 30 day, Stop date: 10/20/14 0:16:00 Start Date: 09/20/14 Stop Date: 09/20/14 Status: DiscontinuedDextrose 50% Syringe 12.5 gm, 25 mL, Route: IVP, Drug Form: INJ, Dosing Weight 88.636, kg, PRN, PRN Blood Glucose Results, Start date: 09/20/14 0:17:00, Duration: 30 day, Stop date: 10/20/14 0:16:00 Start Date: 09/20/14 Stop Date: 09/20/14 Status: DiscontinuedDextrose 50% Syringe 25 gm, 50 mL, Route: IVP, Drug Form: INJ, Dosing Weight 88.636, kg, PRN, PRN Blood Glucose Results, Start date: 09/28/14 13:46:00, Duration: 30 day, Stop date: 10/28/14 13:45:00 Start Date: 09/28/14 Stop Date: 10/10/14 Status: DiscontinuedDextrose 50% Syringe 12.5 gm, 25 mL, Route: IVP, Drug Form: INJ, Dosing Weight 88.636, kg, PRN, PRN Blood Glucose Results, Start date: 09/28/14 13:46:00, Duration: 30 day, Stop date: 10/28/14 13:45:00 Start Date: 09/28/14 Stop Date: 10/10/14 Status: DiscontinuedDextrose 50% Syringe 12.5 gm, 25 mL, Route: IVP, Drug Form: INJ, Dosing Weight 88.636, kg, PRN, PRN Blood Glucose Results, Start date: 09/26/14 19:19:00, Duration: 30 day, Stop date: 10/26/14 19:18:00 Start Date: 09/26/14 Stop Date: 09/28/14 Status: DiscontinuedDextrose 50% Syringe 25 gm, 50 mL, Route: IVP, Drug Form: INJ, Dosing Weight 88.636, kg, PRN, PRN Blood Glucose Results, Start date: 09/26/14 19:19:00, Duration: 30 day, Stop date: 10/26/14 19:18:00 Start Date: 09/26/14 Stop Date: 09/28/14 Status: DiscontinuedDextrose 50% Syringe 25 gm, 50 mL, Route: IVP, Drug Form: INJ, Dosing Weight 88.636, kg, PRN, PRN Abnormal Lab Result, Start date: 09/25/14 15:34:00, Duration: 30 day, Stop date: 10/25/14 15:33:00, For FSBG < 40 mg/dL Special Instructions: For FSBG < 40 mg/dL Start Date: 09/25/14 Stop Date: 09/26/14 Status: DiscontinuedDextrose 50% Syringe 12.5 gm, 25 mL, Route: IVP, Drug Form: INJ, Dosing Weight 88.636, kg, PRN, PRN Abnormal Lab Result, Start date: 09/25/14 15:34:00, Duration: 30 day, Stop date: 10/25/14 15:33:00, For FSBG 40 mg/dL - 60mg/dL Special Instructions: For FSBG 40 mg/dL - 60 mg/dL Start Date: 09/25/14 Stop Date: 09/26/14 Status: DiscontinuedDextrose 50% Syringe 25 gm, 50 mL, Route: IVP, Drug Form: INJ, Dosing Weight 88.636, kg, PRN, PRN Blood Glucose Results, Start date: 09/20/14 15:01:00, Duration: 30 day, Stop date: 10/20/14 15:00:00 Start Date: 09/20/14 Stop Date: 09/25/14 Status: DiscontinuedDextrose 50% Syringe 12.5 gm, 25 mL, Route: IVP, Drug Form: INJ, Dosing Weight 88.636, kg, PRN, PRN Blood Glucose Results, Start date: 09/20/14 15:01:00, Duration: 30 day, Stop date: 10/20/14 15:00:00 Start Date: 09/20/14 Stop Date: 09/25/14 Status: DiscontinuedDilaudid 2 mg, 1 mL, Route: IV, Drug form: INJ, ONCE, Dosing Weight 88.636, kg, Start date: 09/19/14 18:55:00, Stop date: 09/19/14 18:55:00 Notes: Same as: Dilaudid Start Date: 09/19/14 Stop Date: 09/19/14 Status: CompletedDilaudid 0.2 mg, 0.1 mL, Route: IV, Drug form: INJ, Q4H, Dosing Weight 88.636, kg, PRN Pain Score 7-10, Startdate: 10/01/14 2:32:00, Duration: 30 day, Stop date: 10/31/14 2:31:00 Notes: Same as: Dilaudid Start Date: 10/01/14 Stop Date: 10/01/14 Status: DiscontinuedDilaudid 0.3 mg, 0.15 mL, Route: IV, Drug form: INJ, Q3H, Dosing Weight 88.636, kg, PRN Pain Score 7-10, Start date: 10/01/14 10:01:00, Duration: 30 day, Stop date: 10/31/14 10:00:00 Notes: Same as: Dilaudid Start Date: 10/01/14 Stop Date: 10/04/14 Status: DiscontinuedDulcolax Laxative 10 mg, 1 supp, Route: WV, Drug form: SUPP, ONCE, Dosing Weight 88.636, kg, Start date: 10/03/14 14:42:00, Stop date: 10/03/14 14:42:00 Notes: (Same As: Dulcolax, Bisco-Lax) Start Date: 10/03/14 Stop Date: 10/03/14 Status: CompletedDuoNeb inhalation solution 3 ml, Route: INHALATION, Drug Form: SOLN, Dosing Weight 88.636, kg, PRN, PRN Respiratory Protocol, Start date: 09/28/14 20:56:00, Duration: 30 day, Stop date: 10/28/14 20:55:00 Notes: (Same as: Duoneb) Start Date: 09/28/14 Stop Date: 09/29/14 Status: Discontinuedenoxaparin 30 mg, 0.3 mL, Route: SUB-Q, Drug form: INJ, Q12H, Dosing Weight 88.636, kg, Start date: 09/19/14 22:00:00, Stop date: 10/19/14 4:00:00 Notes: (Same as: Lovenox) Start Date: 09/19/14 Stop Date: 10/10/14 Status: Discontinuedergocalciferol 50,000 IntlUnit, 1 cap, Route: PO, Drug form: CAP, Q7D, Dosing Weight 88.636, kg, Start date: 09/20/14 16:00:00, Duration: 90 day, Stop date: 12/13/14 9:00:00 Notes: (Same as: Vitamin D) "Do Not Crush" Start Date: 09/20/14 Stop Date: 10/10/14 Status: DiscontinuedfentaNYL 50 microgram, 1 mL, Route: IVP, Drug form: INJ, Q5Min, Dosing Weight 88.636, kg, PRN Pain Score 7-10, Start date: 09/30/14 20:01:00, Duration: 2 doses or times, Stop date: Limited # of times Notes: (Same as: Sublimaze) Preservative free. Start Date: 09/30/14 Stop Date: 09/30/14 Status: Completedferrous sulfate 325 mg, 1 tab, Route: PO, Drug form: TAB, TID, Dosing Weight 88.636, kg, Start date: 09/24/14 13:00:00, Duration: 30 day, Stop date: 10/24/14 9:00:00 Notes: Give with food.iron elemental 01dt=199yr as ferrous sulfateDose=___mg elemental iron Start Date: 09/24/14 Stop Date: 09/24/14 Status: Discontinuedferrous sulfate 325 mg, 1 tab, Route: PO, Drug form: ECTAB, TID, Start date: 09/24/14 17:00:00, Duration: 30 day, Stop date: 10/24/14 13:00:00 Notes: Give with food. "Do Not Crush" Start Date: 09/24/14 Stop Date: 10/10/14 Status: Discontinuedferrous sulfate 325 mg oral enteric coated tablet 325 mg = 1 tab, PO, TID, # 90 tab, 0 Refill(s) Start Date: 10/10/14 Status: Orderedflumazenil 0.2 mg, 2 mL, Route: IVP, Drug form: INJ, PRN, Dosing Weight 88.636, kg, PRN Benzodiazepine Reversal, Initial dose, Start date: 09/30/14 20:01:00, Duration: 30 day, Stop date: 10/30/14 20:00:00 Notes: (Same as: Romazicon) Start Date: 09/30/14 Stop Date: 09/30/14 Status: Discontinuedfluorescein ophthalmic 1 mg test Route: RIGHT EYE, ONCE, Start date: 09/19/14 17:50:00, Stop date: 09/19/14 17:50:00 Start Date: 09/19/14 Stop Date: 09/19/14 Status: Discontinuedgabapentin 300 mg oral capsule 300 mg, 1 cap, Route: PO, Drug form: CAP, Q8H, Dosing Weight 88.636, kg, Start date: 09/23/14 0:00:00, Duration: 30 day, Stop date: 10/22/14 16:00:00 Notes: (Same as: Neurontin) Start Date: 09/23/14 Stop Date: 09/29/14 Status: Discontinuedgabapentin 300 mg oral capsule 600 mg, 2 cap, Route: PO, Drug form: CAP, Q8H, Dosing Weight 88.636, kg, Start date: 09/30/14 0:00:00, Duration: 30 day, Stop date: 10/29/14 16:00:00 Notes: (Same as: Neurontin) Start Date: 09/30/14 Stop Date: 10/10/14 Status: Discontinuedgabapentin 300 mg oral capsule 600 mg = 2 cap, PO, Q8H, # 120 cap, 0 Refill(s) Start Date: 10/10/14 Status: Orderedglucagon 1 mg, Route: IM, Drug form: PDR/INJ, PRN, Dosing Weight 88.636, kg, PRN Blood Glucose Results, Startdate: 09/20/14 0:17:00, Duration: 30 day, Stop date: 10/20/14 0:16:00 Start Date: 09/20/14 Stop Date: 09/20/14 Status: Discontinuedglucagon 1 mg, Route: IM, Drug form: PDR/INJ, PRN, Dosing Weight 88.636, kg, PRN Blood Glucose Results, Startdate: 09/28/14 13:46:00, Duration: 30 day, Stop date: 10/28/14 13:45:00 Start Date: 09/28/14 Stop Date: 10/03/14 Status: Discontinuedglucagon 1 mg, Route: IM, Drug form: PDR/INJ, PRN, Dosing Weight 88.636, kg, PRN Blood Glucose Results, Startdate: 09/26/14 19:19:00, Duration: 30 day, Stop date: 10/26/14 19:18:00 Start Date: 09/26/14 Stop Date: 09/28/14 Status: Discontinuedglucagon 1 mg, Route: IM, Drug form: PDR/INJ, PRN, Dosing Weight 88.636, kg, PRN Blood Glucose Results, Startdate: 09/20/14 15:01:00, Duration: 30 day, Stop date: 10/20/14 15:00:00 Start Date: 09/20/14 Stop Date: 09/20/14 Status: DiscontinuedglyBURIDE-metformin 5 mg-500 mg oral tablet 1 tab, PO, TID, 0 Refill(s) Start Date: 09/20/14 Stop Date: 10/10/14 Status: DiscontinuedhydrALAZINE 10 mg, 0.5 mL, Route: IVP, Drug form: INJ, Q20Min, Dosing Weight 88.636, kg, PRN Elevated BP, Start date: 09/30/14 20:01:00, Duration: 2 doses or times, Stop date: Limited # of times Notes: (Same as: Apresoline)Push over 5 minutes Start Date: 09/30/14 Stop Date: 09/30/14 Status: Discontinuedhydromorphone 0.5 mg, 0.25 mL, Route: IVP, Drug form: INJ, Q5Min, Dosing Weight 88.636, kg, PRN Pain Score 7-10, Start date: 09/30/14 20:01:00, Duration: 4 doses or times, Stop date: Limited # of times Notes: Same as: Dilaudid Start Date: 09/30/14 Stop Date: 09/30/14 Status: Completedinsulin aspart 7 unit, Route: SUB-Q, Drug form: SOLN, TID-Before Meals, Dosing Weight 88.636, kg, Start date: 10/02/14 7:30:00, Duration: 30 day, Stop date: 10/31/14 16:30:00 Start Date: 10/02/14 Stop Date: 10/01/14 Status: Canceledinsulin aspart 4 unit, 0.04 mL, Route: SUB-Q, Drug form: SOLN, TID-Before Meals, Dosing Weight 88.636, kg, Start date: 09/30/14 11:30:00, Duration: 30 day, Stop date: 10/30/14 7:30:00 Notes: Roll in palms of hands gently; Do not shake vigorously. (Same as: NovoLOG)"single patient use only" Stable for 28 days at room temperature.Expires in days from Date Start Date: 09/30/14 Stop Date: 10/01/14 Status: Discontinuedinsulin aspart 6 unit, 0.06 mL, Route: SUB-Q, Drug form: SOLN, TID-Before Meals, Dosing Weight 88.636, kg, PRN Blood Glucose Results, Start date: 09/22/14 10:50:00, Duration: 30 day, Stop date: 10/22/14 10:49:00 Notes: Roll in palms of hands gently; Do not shake vigorously. (Same as: NovoLOG)"single patient use only" Stable for 28 days at room temperature.Expires in days from Date Start Date: 09/22/14 Stop Date: 09/25/14 Status: Discontinuedinsulin aspart 8 unit, 0.08 mL, Route: SUB-Q, Drug form: SOLN, TID-Before Meals, Dosing Weight 88.636, kg, PRN Blood Glucose Results, Start date: 09/20/14 0:17:00, Duration: 30 day, Stop date: 10/20/14 0:16:00 Notes: Roll in palms of hands gently; Do not shake vigorously. (Same as: NovoLOG)"single patient use only" Stable for 28 days at room temperature.Expires in days from Date Start Date: 09/20/14 Stop Date: 09/20/14 Status: Discontinuedinsulin aspart 10 unit, 0.1 mL, Route: SUB-Q, Drug form: SOLN, TID-Before Meals, Dosing Weight 88.636, kg, PRN Blood Glucose Results, Start date: 09/20/14 0:17:00, Duration: 30 day, Stop date: 10/20/14 0:16:00 Notes: Roll in palms of hands gently; Do not shake vigorously. (Same as: NovoLOG)"single patient use only" Stable for 28 days at room temperature.Expires in days from Date Start Date: 09/20/14 Stop Date: 09/20/14 Status: Discontinuedinsulin aspart 2 unit, 0.02 mL, Route: SUB-Q, Drug form: SOLN, TID-Before Meals, Dosing Weight 88.636, kg, PRN Blood Glucose Results, Start date: 09/20/14 0:17:00, Duration: 30 day, Stop date: 10/20/14 0:16:00 Notes: Roll in palms of hands gently; Do not shake vigorously. (Same as: NovoLOG)"single patient use only" Stable for 28 days at room temperature.Expires in days from Date Start Date: 09/20/14 Stop Date: 09/20/14 Status: Discontinuedinsulin aspart 6 unit, 0.06 mL, Route: SUB-Q, Drug form: SOLN, TID-Before Meals, Dosing Weight 88.636, kg, PRN Blood Glucose Results, Start date: 09/20/14 0:17:00, Duration: 30 day, Stop date: 10/20/14 0:16:00 Notes: Roll in palms of hands gently; Do not shake vigorously. (Same as: NovoLOG)"single patient use only" Stable for 28 days at room temperature.Expires in days from Date Start Date: 09/20/14 Stop Date: 09/20/14 Status: Discontinuedinsulin aspart 4 unit, 0.04 mL, Route: SUB-Q, Drug form: SOLN, TID-Before Meals, Dosing Weight 88.636, kg, PRN Blood Glucose Results, Start date: 09/20/14 0:17:00, Duration: 30 day, Stop date: 10/20/14 0:16:00 Notes: Roll in palms of hands gently; Do not shake vigorously. (Same as: NovoLOG)"single patient use only" Stable for 28 days at room temperature.Expires in days from Date Start Date: 09/20/14 Stop Date: 09/20/14 Status: Discontinuedinsulin aspart 6 unit, Route: SUB-Q, Drug form: SOLN, TID-Before Meals, Dosing Weight 88.636, kg, Start date: 09/22/14 11:30:00, Duration: 30 day, Stop date: 10/22/14 7:30:00 Start Date: 09/22/14 Stop Date: 09/22/14 Status: Canceledinsulin aspart 6 unit, 0.06 mL, Route: SUB-Q, Drug form: SOLN, TID-Before Meals, Dosing Weight 88.636, kg, PRN Blood Glucose Results, Start date: 09/28/14 13:46:00, Duration: 30 day, Stop date: 10/28/14 13:45:00 Notes: Roll in palms of hands gently; Do not shake vigorously. (Same as: NovoLOG)"single patient use only" Stable for 28 days at room temperature.Expires in days from Date Start Date: 09/28/14 Stop Date: 10/10/14 Status: Discontinuedinsulin aspart 10 unit, 0.1 mL, Route: SUB-Q, Drug form: SOLN, TID-Before Meals, Dosing Weight 88.636, kg, PRN Blood Glucose Results, Start date: 09/28/14 13:46:00, Duration: 30 day, Stop date: 10/28/14 13:45:00 Notes: Roll in palms of hands gently; Do not shake vigorously. (Same as: NovoLOG)"single patient use only" Stable for 28 days at room temperature.Expires in days from Date Start Date: 09/28/14 Stop Date: 10/10/14 Status: Discontinuedinsulin aspart 8 unit, 0.08 mL, Route: SUB-Q, Drug form: SOLN, TID-Before Meals, Dosing Weight 88.636, kg, PRN Blood Glucose Results, Start date: 09/28/14 13:46:00, Duration: 30 day, Stop date: 10/28/14 13:45:00 Notes: Roll in palms of hands gently; Do not shake vigorously. (Same as: NovoLOG)"single patient use only" Stable for 28 days at room temperature.Expires in days from Date Start Date: 09/28/14 Stop Date: 10/10/14 Status: Discontinuedinsulin aspart 4 unit, 0.04 mL, Route: SUB-Q, Drug form: SOLN, TID-Before Meals, Dosing Weight 88.636, kg, PRN Blood Glucose Results, Start date: 09/28/14 13:46:00, Duration: 30 day, Stop date: 10/28/14 13:45:00 Notes: Roll in palms of hands gently; Do not shake vigorously. (Same as: NovoLOG)"single patient use only" Stable for 28 days at room temperature.Expires in days from Date Start Date: 09/28/14 Stop Date: 10/10/14 Status: Discontinuedinsulin aspart 2 unit, 0.02 mL, Route: SUB-Q, Drug form: SOLN, TID-Before Meals, Dosing Weight 88.636, kg, PRN Blood Glucose Results, Start date: 09/28/14 13:46:00, Duration: 30 day, Stop date: 10/28/14 13:45:00 Notes: Roll in palms of hands gently; Do not shake vigorously. (Same as: NovoLOG)"single patient use only" Stable for 28 days at room temperature.Expires in days from Date Start Date: 09/28/14 Stop Date: 10/10/14 Status: Discontinuedinsulin aspart 10 unit, 0.1 mL, Route: SUB-Q, Drug form: SOLN, ONCE, Dosing Weight 88.636, kg, Start date: 09/29/1515:00:00, Stop date: 09/28/14 16:00:00 Notes: Roll in palms of hands gently; Do not shake vigorously. (Same as: NovoLOG)"single patient use only" Stable for 28 days at room temperature.Expires in days from Date Start Date: 09/28/14 Stop Date: 09/28/14 Status: Completedinsulin aspart 10 unit, 0.1 mL, Route: SUB-Q, Drug form: SOLN, TID-Before Meals, Dosing Weight 88.636, kg, Priority: STAT, Start date: 10/02/14 17:26:00, Duration: 30 day, Stop date: 11/01/14 16:30:00 Notes: Roll in palms of hands gently; Do not shake vigorously. (Same as: NovoLOG)"single patient use only" Stable for 28 days at room temperature.Expires in days from Date Start Date: 10/02/14 Stop Date: 10/03/14 Status: Discontinuedinsulin aspart 8 unit, 0.08 mL, Route: SUB-Q, Drug form: SOLN, Before Dinner, Dosing Weight 88.636, kg, Start date:10/04/14 16:30:00, Duration: 30 day, Stop date: 11/02/14 16:30:00 Notes: Roll in palms of hands gently; Do not shake vigorously. (Same as: NovoLOG)"single patient use only" Stable for 28 days at room temperature.Expires in days from Date Start Date: 10/04/14 Stop Date: 10/10/14 Status: Discontinuedinsulin aspart 8 unit, 0.08 mL, Route: SUB-Q, Drug form: SOLN, Before Lunch, Dosing Weight 88.636, kg, Start date: 10/05/14 11:30:00, Duration: 30 day, Stop date: 11/03/14 11:30:00 Notes: Roll in palms of hands gently; Do not shake vigorously. (Same as: NovoLOG)"single patient use only" Stable for 28 days at room temperature.Expires in days from Date Start Date: 10/05/14 Stop Date: 10/10/14 Status: Discontinuedinsulin aspart 12 unit, 0.12 mL, Route: SUB-Q, Drug form: SOLN, ONCE, Dosing Weight 88.636, kg, Start date: 09/28/14 12:16:00, Stop date: 09/28/14 12:16:00 Notes: Roll in palms of hands gently; Do not shake vigorously. (Same as: NovoLOG)"single patient use only" Stable for 28 days at room temperature.Expires in days from Date Start Date: 09/28/14 Stop Date: 09/28/14 Status: Completedinsulin aspart 2 unit, 0.02 mL, Route: SUB-Q, Drug form: SOLN, Bedtime, Dosing Weight 88.636, kg, PRN Blood GlucoseResults, Start date: 09/26/14 19:19:00, Duration: 30 day, Stop date: 10/26/14 19:18:00 Notes: Roll in palms of hands gently; Do not shake vigorously. (Same as: NovoLOG)"single patient use only" Stable for 28 days at room temperature.Expires in days from Date Start Date: 09/26/14 Stop Date: 09/28/14 Status: Discontinuedinsulin aspart 1 unit, 0.01 mL, Route: SUB-Q, Drug form: SOLN, Bedtime, Dosing Weight 88.636, kg, PRN Blood GlucoseResults, Start date: 09/26/14 19:19:00, Duration: 30 day, Stop date: 10/26/14 19:18:00 Notes: Roll in palms of hands gently; Do not shake vigorously. (Same as: NovoLOG)"single patient use only" Stable for 28 days at room temperature.Expires in days from Date Start Date: 09/26/14 Stop Date: 09/28/14 Status: Discontinuedinsulin aspart 4 unit, 0.04 mL, Route: SUB-Q, Drug form: SOLN, Bedtime, Dosing Weight 88.636, kg, PRN Blood GlucoseResults, Start date: 09/26/14 19:19:00, Duration: 30 day, Stop date: 10/26/14 19:18:00 Notes: Roll in palms of hands gently; Do not shake vigorously. (Same as: NovoLOG)"single patient use only" Stable for 28 days at room temperature.Expires in days from Date Start Date: 09/26/14 Stop Date: 09/28/14 Status: Discontinuedinsulin aspart 3 unit, 0.03 mL, Route: SUB-Q, Drug form: SOLN, Bedtime, Dosing Weight 88.636, kg, PRN Blood GlucoseResults, Start date: 09/26/14 19:19:00, Duration: 30 day, Stop date: 10/26/14 19:18:00 Notes: Roll in palms of hands gently; Do not shake vigorously. (Same as: NovoLOG)"single patient use only" Stable for 28 days at room temperature.Expires in days from Date Start Date: 09/26/14 Stop Date: 09/28/14 Status: Discontinuedinsulin aspart 10 unit, 0.1 mL, Route: SUB-Q, Drug form: SOLN, TID-Before Meals, Dosing Weight 88.636, kg, PRN Blood Glucose Results, Start date: 09/26/14 19:19:00, Duration: 30 day, Stop date: 10/26/14 19:18:00 Notes: Roll in palms of hands gently; Do not shake vigorously. (Same as: NovoLOG)"single patient use only" Stable for 28 days at room temperature.Expires in days from Date Start Date: 09/26/14 Stop Date: 09/28/14 Status: Discontinuedinsulin aspart 2 unit, 0.02 mL, Route: SUB-Q, Drug form: SOLN, TID-Before Meals, Dosing Weight 88.636, kg, PRN Blood Glucose Results, Start date: 09/26/14 19:19:00, Duration: 30 day, Stop date: 10/26/14 19:18:00 Notes: Roll in palms of hands gently; Do not shake vigorously. (Same as: NovoLOG)"single patient use only" Stable for 28 days at room temperature.Expires in days from Date Start Date: 09/26/14 Stop Date: 09/28/14 Status: Discontinuedinsulin aspart 6 unit, 0.06 mL, Route: SUB-Q, Drug form: SOLN, TID-Before Meals, Dosing Weight 88.636, kg, PRN Blood Glucose Results, Start date: 09/26/14 19:19:00, Duration: 30 day, Stop date: 10/26/14 19:18:00 Notes: Roll in palms of hands gently; Do not shake vigorously. (Same as: NovoLOG)"single patient use only" Stable for 28 days at room temperature.Expires in days from Date Start Date: 09/26/14 Stop Date: 09/28/14 Status: Discontinuedinsulin aspart 4 unit, 0.04 mL, Route: SUB-Q, Drug form: SOLN, TID-Before Meals, Dosing Weight 88.636, kg, PRN Blood Glucose Results, Start date: 09/26/14 19:19:00, Duration: 30 day, Stop date: 10/26/14 19:18:00 Notes: Roll in palms of hands gently; Do not shake vigorously. (Same as: NovoLOG)"single patient use only" Stable for 28 days at room temperature.Expires in days from Date Start Date: 09/26/14 Stop Date: 09/28/14 Status: Discontinuedinsulin aspart 8 unit, 0.08 mL, Route: SUB-Q, Drug form: SOLN, TID-Before Meals, Dosing Weight 88.636, kg, PRN Blood Glucose Results, Start date: 09/26/14 19:19:00, Duration: 30 day, Stop date: 10/26/14 19:18:00 Notes: Roll in palms of hands gently; Do not shake vigorously. (Same as: NovoLOG)"single patient use only" Stable for 28 days at room temperature.Expires in days from Date Start Date: 09/26/14 Stop Date: 09/28/14 Status: Discontinuedinsulin aspart 14 unit, 0.14 mL, Route: SUB-Q, Drug form: SOLN, Before Breakfast, Dosing Weight 88.636, kg, Start date: 10/05/14 7:30:00, Stop date: 11/03/14 7:30:00 Notes: Roll in palms of hands gently; Do not shake vigorously. (Same as: NovoLOG)"single patient use only" Stable for 28 days at room temperature.Expires in days from Date Start Date: 10/05/14 Stop Date: 10/10/14 Status: Discontinuedinsulin aspart 5 unit, 0.05 mL, Route: SUB-Q, Drug form: SOLN, TID-Before Meals, Dosing Weight 88.636, kg, Start date: 09/20/14 16:30:00, Duration: 30 day, Stop date: 10/20/14 11:30:00 Notes: Roll in palms of hands gently; Do not shake vigorously. (Same as: NovoLOG)"single patient use only" Stable for 28 days at room temperature.Expires in days from Date Start Date: 09/20/14 Stop Date: 09/22/14 Status: Discontinuedinsulin aspart 10 unit, 0.1 mL, Route: SUB-Q, Drug form: SOLN, TID-Before Meals, Dosing Weight 88.636, kg, PRN Blood Glucose Results, Start date: 09/20/14 15:01:00, Duration: 30 day, Stop date: 10/20/14 15:00:00 Notes: Roll in palms of hands gently; Do not shake vigorously. (Same as: NovoLOG)"single patient use only" Stable for 28 days at room temperature.Expires in days from Date Start Date: 09/20/14 Stop Date: 09/25/14 Status: Discontinuedinsulin aspart 6 unit, 0.06 mL, Route: SUB-Q, Drug form: SOLN, TID-Before Meals, Dosing Weight 88.636, kg, PRN Blood Glucose Results, Start date: 09/20/14 15:01:00, Duration: 30 day, Stop date: 10/20/14 15:00:00 Notes: Roll in palms of hands gently; Do not shake vigorously. (Same as: NovoLOG)"single patient use only" Stable for 28 days at room temperature.Expires in days from Date Start Date: 09/20/14 Stop Date: 09/22/14 Status: Discontinuedinsulin aspart 8 unit, 0.08 mL, Route: SUB-Q, Drug form: SOLN, TID-Before Meals, Dosing Weight 88.636, kg, PRN Blood Glucose Results, Start date: 09/20/14 15:01:00, Duration: 30 day, Stop date: 10/20/14 15:00:00 Notes: Roll in palms of hands gently; Do not shake vigorously. (Same as: NovoLOG)"single patient use only" Stable for 28 days at room temperature.Expires in days from Date Start Date: 09/20/14 Stop Date: 09/25/14 Status: Discontinuedinsulin aspart 4 unit, 0.04 mL, Route: SUB-Q, Drug form: SOLN, TID-Before Meals, Dosing Weight 88.636, kg, PRN Blood Glucose Results, Start date: 09/20/14 15:01:00, Duration: 30 day, Stop date: 10/20/14 15:00:00 Notes: Roll in palms of hands gently; Do not shake vigorously. (Same as: NovoLOG)"single patient use only" Stable for 28 days at room temperature.Expires in days from Date Start Date: 09/20/14 Stop Date: 09/25/14 Status: Discontinuedinsulin aspart 2 unit, 0.02 mL, Route: SUB-Q, Drug form: SOLN, TID-Before Meals, Dosing Weight 88.636, kg, PRN Blood Glucose Results, Start date: 09/20/14 15:01:00, Duration: 30 day, Stop date: 10/20/14 15:00:00 Notes: Roll in palms of hands gently; Do not shake vigorously. (Same as: NovoLOG)"single patient use only" Stable for 28 days at room temperature.Expires in days from Date Start Date: 09/20/14 Stop Date: 09/25/14 Status: Discontinuedinsulin aspart 7 unit, Route: SUB-Q, Drug form: SOLN, TID-Before Meals, Dosing Weight 88.636, kg, PRN Blood GlucoseResults, Start date: 09/22/14 9:57:00, Duration: 30 day, Stop date: 10/22/14 9:56:00 Start Date: 09/22/14 Stop Date: 09/22/14 Status: Discontinuedinsulin aspart 10 unit, 0.1 mL, Route: SUB-Q, Drug form: SOLN, TID-Before Meals, Dosing Weight 88.636, kg, Start date: 09/22/14 11:30:00, Stop date: 10/22/14 7:30:00 Notes: Roll in palms of hands gently; Do not shake vigorously. (Same as: NovoLOG)"single patient use only" Stable for 28 days at room temperature.Expires in days from Date Start Date: 09/22/14 Stop Date: 09/28/14 Status: Discontinuedinsulin aspart 12 unit, 0.12 mL, Route: SUB-Q, Drug form: SOLN, TID-Before Meals, Dosing Weight 88.636, kg, Start date: 10/03/14 7:30:00, Duration: 30 day, Stop date: 11/01/14 16:30:00 Notes: Roll in palms of hands gently; Do not shake vigorously. (Same as: NovoLOG)"single patient use only" Stable for 28 days at room temperature.Expires in days from Date Start Date: 10/03/14 Stop Date: 10/04/14 Status: Discontinuedinsulin aspart 7 unit, 0.07 mL, Route: SUB-Q, Drug form: SOLN, TID-Before Meals, Dosing Weight 88.636, kg, Start date: 10/01/14 17:08:00, Duration: 30 day, Stop date: 10/31/14 16:30:00 Notes: Roll in palms of hands gently; Do not shake vigorously. (Same as: NovoLOG)"single patient use only" Stable for 28 days at room temperature.Expires in days from Date Start Date: 10/01/14 Stop Date: 10/02/14 Status: Discontinuedinsulin detemir 25 unit, 0.25 mL, Route: SUB-Q, Drug form: INJ, Daily, Dosing Weight 88.636, kg, Start date: 09/21/14 10:40:00, Stop date: 10/21/14 9:00:00 Notes: Same as LevemirDo not hold insulin without contacting prescriber "single patient use only" Start Date: 09/21/14 Stop Date: 09/28/14 Status: Discontinuedinsulin detemir 5 unit, 0.05 mL, Route: SUB-Q, Drug form: INJ, Bedtime, Dosing Weight 88.636, kg, Start date: 09/22/14 21:00:00, Duration: 30 day, Stop date: 10/21/14 21:00:00 Notes: Same as LevemirDo not hold insulin without contacting prescriber "single patient use only" Start Date: 09/22/14 Stop Date: 09/22/14 Status: Canceledinsulin detemir 5 unit, 0.05 mL, Route: SUB-Q, Drug form: INJ, ONCE, Dosing Weight 88.636, kg, Start date: 09/23/14 12:54:00, Stop date: 09/23/14 12:54:00 Notes: Same as LevemirDo not hold insulin without contacting prescriber "single patient use only" Start Date: 09/23/14 Stop Date: 09/23/14 Status: Completedinsulin detemir 5 unit, 0.05 mL, Route: SUB-Q, Drug form: INJ, ONCE, Dosing Weight 88.636, kg, Start date: 09/22/14 11:12:00, Stop date: 09/22/14 11:12:00 Notes: Same as LevemirDo not hold insulin without contacting prescriber "single patient use only" Start Date: 09/22/14 Stop Date: 09/22/14 Status: Completedinsulin detemir 10 unit, 0.1 mL, Route: SUB-Q, Drug form: INJ, Bedtime, Dosing Weight 88.636, kg, Start date: 09/28/14 21:00:00, Duration: 1 day, Stop date: 09/28/14 21:00:00 Notes: Same as LevemirDo not hold insulin without contacting prescriber "single patient use only" Start Date: 09/28/14 Stop Date: 09/28/14 Status: Completedinsulin detemir 5 unit, Route: SUB-Q, QPM, Dosing Weight 88.636, kg, Start date: 09/22/14 17:00:00, Duration: 30 day, Stop date: 10/21/14 17:00:00 Start Date: 09/22/14 Stop Date: 09/22/14 Status: Canceledinsulin detemir 15 unit, 0.15 mL, Route: SUB-Q, Drug form: INJ, Daily, Dosing Weight 88.636, kg, Start date: 09/21/14 15:00:00, Duration: 30 day, Stop date: 10/21/14 9:00:00 Notes: Same as LevemirDo not hold insulin without contacting prescriber "single patient use only" Start Date: 09/21/14 Stop Date: 09/21/14 Status: Canceledinsulin glargine 100 units/mL subcutaneous solution 40 unit, SUB-Q, QAM, # 10 mL, 0 Refill(s) Start Date: 10/10/14 Status: OrderedInsulin regular 12 unit, 0.12 mL, Route: SUB-Q, Drug form: SOLN, TID-Before Meals, Dosing Weight 88.636, kg, PRN Blood Glucose Results, Start date: 09/20/14 2:32:00, Duration: 30 day, Stop date: 10/20/14 2:31:00 Notes: (Same as: Humulin R) Roll in palms of hands gently; Do not shake vigorously. "single patientuse only"(Restricted to patients requiring a dose > 60 units) Stable for 28 days at room temperatureExpires in days from Date Start Date: 09/20/14 Stop Date: 09/20/14 Status: DiscontinuedInsulin regular 15 unit, 0.15 mL, Route: SUB-Q, Drug form: SOLN, TID-Before Meals, Dosing Weight 88.636, kg, PRN Blood Glucose Results, Start date: 09/20/14 2:32:00, Duration: 30 day, Stop date: 10/20/14 2:31:00 Notes: (Same as: Humulin R) Roll in palms of hands gently; Do not shake vigorously. "single patientuse only"(Restricted to patients requiring a dose > 60 units) Stable for 28 days at room temperatureExpires in days from Date Start Date: 09/20/14 Stop Date: 09/20/14 Status: DiscontinuedInsulin regular 3 unit, 0.03 mL, Route: SUB-Q, Drug form: SOLN, TID-Before Meals, Dosing Weight 88.636, kg, PRN Blood Glucose Results, Start date: 09/20/14 2:32:00, Duration: 30 day, Stop date: 10/20/14 2:31:00 Notes: (Same as: Humulin R) Roll in palms of hands gently; Do not shake vigorously. "single patientuse only"(Restricted to patients requiring a dose > 60 units) Stable for 28 days at room temperatureExpires in days from Date Start Date: 09/20/14 Stop Date: 09/20/14 Status: DiscontinuedInsulin regular 6 unit, 0.06 mL, Route: SUB-Q, Drug form: SOLN, TID-Before Meals, Dosing Weight 88.636, kg, PRN Blood Glucose Results, Start date: 09/20/14 2:32:00, Duration: 30 day, Stop date: 10/20/14 2:31:00 Notes: (Same as: Humulin R) Roll in palms of hands gently; Do not shake vigorously. "single patientuse only"(Restricted to patients requiring a dose > 60 units) Stable for 28 days at room temperatureExpires in days from Date Start Date: 09/20/14 Stop Date: 09/20/14 Status: DiscontinuedInsulin regular 9 unit, 0.09 mL, Route: SUB-Q, Drug form: SOLN, TID-Before Meals, Dosing Weight 88.636, kg, PRN Blood Glucose Results, Start date: 09/20/14 2:32:00, Duration: 30 day, Stop date: 10/20/14 2:31:00 Notes: (Same as: Humulin R) Roll in palms of hands gently; Do not shake vigorously. "single patientuse only"(Restricted to patients requiring a dose > 60 units) Stable for 28 days at room temperatureExpires in days from Date Start Date: 09/20/14 Stop Date: 09/20/14 Status: DiscontinuedInsulin regular 12 unit, 0.12 mL, Route: SUB-Q, Drug form: SOLN, PRN, Dosing Weight 88.636, kg, PRN Abnormal Lab Result, Start date: 09/25/14 15:34:00, Duration: 30 day, Stop date: 10/25/14 15:33:00, For FSBG >= 200 mg/dL Special Instructions: For FSBG >= 200 mg/dL Notes: (Same as: Humulin R) Roll in palms of hands gently; Do not shake vigorously. "single patientuse only"(Restricted to patients requiring a dose > 60 units) Stable for 28 days at room temperatureExpires in days from Date Start Date: 09/25/14 Stop Date: 09/26/14 Status: DiscontinuedInsulin regular 8 unit, 0.08 mL, Route: SUB-Q, Drug form: SOLN, PRN, Dosing Weight 88.636, kg, PRN Abnormal Lab Result, Start date: 09/25/14 15:34:00, Duration: 30 day, Stop date: 10/25/14 15:33:00, For FSBG 175 mg/dL- 199 mg/dL Special Instructions: For FSBG 175 mg/dL - 199 mg/dL Notes: (Same as: Humulin R) Roll in palms of hands gently; Do not shake vigorously. "single patientuse only"(Restricted to patients requiring a dose > 60 units) Stable for 28 days at room temperatureExpires in days from Date Start Date: 09/25/14 Stop Date: 09/26/14 Status: DiscontinuedInsulin regular 5 unit, 0.05 mL, Route: SUB-Q, Drug form: SOLN, PRN, Dosing Weight 88.636, kg, PRN Abnormal Lab Result, Start date: 09/25/14 15:34:00, Duration: 30 day, Stop date: 10/25/14 15:33:00, For FSBG 150 mg/dL- 174 mg/dL Special Instructions: For FSBG 150 mg/dL - 174 mg/dL Notes: (Same as: Humulin R) Roll in palms of hands gently; Do not shake vigorously. "single patientuse only"(Restricted to patients requiring a dose > 60 units) Stable for 28 days at room temperatureExpires in days from Date Start Date: 09/25/14 Stop Date: 09/26/14 Status: Discontinuedlabetalol 10 mg, 2 mL, Route: IVP, Drug form: INJ, Q5Min, Dosing Weight 88.636, kg, PRN Elevated BP, Start date: 09/30/14 20:01:00, Duration: 5 doses or times, Stop date: Limited # of times Start Date: 09/30/14 Stop Date: 09/30/14 Status: DiscontinuedLantus 40 unit, 0.4 mL, Route: SUB-Q, Drug form: INJ, QAM, Dosing Weight 88.636, kg, Start date: 09/29/14 9:00:00, Stop date: 10/28/14 9:00:00 Notes: Same as Lantus Solostar PENDo not hold insulin without contacting prescriber"single patient use only" Stable for 28 days at room temperature.Expires in days from Date Start Date: 09/29/14 Stop Date: 10/10/14 Status: DiscontinuedLevemir 10 unit, 0.1 mL, Route: SUB-Q, Drug form: INJ, Bedtime, Dosing Weight 88.636, kg, Start date: 09/25/14 21:00:00, Duration: 30 day, Stop date: 10/24/14 21:00:00 Notes: Same as LevemirDo not hold insulin without contacting prescriber "single patient use only" Start Date: 09/25/14 Stop Date: 09/28/14 Status: DiscontinuedLidoderm 5% topical film (patch) 1 patch, Route: TOP, Q24H, Drug form: FILM, Start date: 09/28/14 20:13:00, Duration: 30 day, Stop date: 10/27/14 20:13:00, Remove after 12 hours Special Instructions: Remove after 12 hours Notes: Apply only once for up to 12 hours in [id number] period (12 hours on and 12 hours off).(Same as: Lidoderm)"Remove old patch before application of new patch" Start Date: 09/28/14 Stop Date: 09/28/14 Status: DeletedLidoderm 5% topical film (patch) 1 patch, Route: TOP, Q24H, Drug form: FILM, L flank, Start date: 09/25/14 16:00:00, Stop date: 10/24/14 12:00:00 Notes: Apply only once for up to 12 hours in a90-cmhf period (12 hours on and 12 hours off).(Same as: Lidoderm)"Remove old patch before application of new patch" Start Date: 09/25/14 Stop Date: 10/01/14 Status: DiscontinuedLyrica 100 mg, 1 cap, Route: PO, Drug form: CAP, Q8H, Dosing Weight 88.636, kg, Start date: 09/20/14 0:00:00, Duration: 30 day, Stop date: 10/19/14 16:00:00 Notes: (Same as: Lyrica) Start Date: 09/20/14 Stop Date: 09/22/14 Status: Discontinuedmagnesium oxide 800 mg, 2 tab, Route: PO, Drug form: TAB, ONCE, Dosing Weight 88.636, kg, Start date: 10/05/14 8:28:00, Stop date: 10/05/14 8:28:00 Notes: (Same as: Mag-Ox 400)Magnesium oxide 395ry=920mc elemental magnesiumDose=____mg magnesium oxide (___mg elemental magnesium) Start Date: 10/05/14 Stop Date: 10/05/14 Status: CompletedmetFORMIN 1000 mg oral tablet 1,000 mg = 1 tab, PO, BID, # 60 tab, 0 Refill(s) Start Date: 10/10/14 Status: OrderedmetFORMIN 500 mg oral tablet 500 mg, 1 tab, Route: PO, Drug form: TAB, BID, Dosing Weight 88.636, kg, Start date: 09/28/14 17:00:00, Duration: 30 day, Stop date: 10/28/14 9:00:00 Notes: (Same as: Glucophage) Take with meal Start Date: 09/28/14 Stop Date: 09/29/14 Status: Discontinuedmethocarbamol 750 mg oral tablet 750 mg = 1 tab, PO, PRN q 8 hrs, 0 Refill(s) Start Date: 09/20/14 Stop Date: 09/22/14 Status: Discontinuedmetoprolol 1 mg, 1 mL, Route: IVP, Drug form: INJ, Q5Min, Dosing Weight 88.636, kg, PRN Other -See Comment, Start date: 09/30/14 20:01:00, Duration: 5 doses or times, Stop date: Limited # of times Notes: (Same as: Lopressor)Push over 2 minutes Start Date: 09/30/14 Stop Date: 09/30/14 Status: DiscontinuedMilk of Magnesia 60 ml, Route: PO, Drug Form: SUSP, Dosing Weight 88.636, kg, ONCE, Start date: 10/05/14 8:26:00, Stop date: 10/05/14 8:26:00 Start Date: 10/05/14 Stop Date: 10/05/14 Status: DiscontinuedMiraLax 17 gm, 1 pkt, Route: PO, Drug form: PWDR, Daily, Dosing Weight 88.636, kg, Start date: 09/23/14 9:00:00, Duration: 30 day, Stop date: 10/22/14 9:00:00 Notes: Dissolve in 8 oz of water or juice.(Same as: Miralax) Start Date: 09/23/14 Stop Date: 10/10/14 Status: Discontinuedmorphine Sulfate 6 mg, 3 mL, Route: IVP, Drug form: INJ, ONCE, kg, Priority: STAT, Start date: 09/19/14 17:49:00, Stop date: 09/19/14 17:49:00 Notes: (Same as:MORPhine Sulfate) Start Date: 09/19/14 Stop Date: 09/19/14 Status: Completedmorphine Sulfate 2 mg, 1 mL, Route: IVP, Drug form: INJ, ONCE, Dosing Weight 88.636, kg, Priority: STAT, Start date: 09/25/14 10:11:00, Stop date: 09/25/14 10:11:00 Notes: (Same as:MORPhine Sulfate) Start Date: 09/25/14 Stop Date: 09/25/14 Status: Completednaloxone 0.04 mg, 0.1 mL, Route: IVP, Drug form: INJ, Q2MIN, Dosing Weight 88.636, kg, PRN Narcotic Reversal,Start date: 09/30/14 20:01:00, Duration: 8 doses or times, Stop date: Limited # of times Notes: Same as Narcan Start Date: 09/30/14 Stop Date: 09/30/14 Status: Discontinuednaproxen 500 mg, 1 tab, Route: PO, Drug form: TAB, Q12H, Dosing Weight 88.636, kg, Start date: 09/22/14 17:00:00, Stop date: 10/22/14 9:00:00 Notes: (Same as: Naprosyn) Start Date: 09/22/14 Stop Date: 10/10/14 Status: DiscontinuedNeutra-Phos 1 pkt, Route: PO, Drug Form: PDR/REC, Dosing Weight 88.636, kg, Daily, Start date: 09/27/14 10:30:00, Duration: 30 day, Stop date: 10/27/14 9:00:00 Notes: (Same as: Neutra-Phos) Each 1.25 gm pkt has 250mg phosphorous. Mix w/2.5oz water and stir. Start Date: 09/27/14 Stop Date: 10/03/14 Status: DiscontinuedNeutra-Phos 1 pkt, Route: PO, Drug Form: PDR/REC, Dosing Weight 88.636, kg, TID-Before Meals, Start date: 10/03/14 16:30:00, Duration: 30 day, Stop date: 11/02/14 11:30:00 Notes: (Same as: Neutra-Phos) Each 1.25 gm pkt has 250mg phosphorous. Mix w/2.5oz water and stir. Start Date: 10/03/14 Stop Date: 10/07/14 Status: DiscontinuedNorco 10/325 oral tablet 1 tab, Route: PO, Drug Form: TAB, Dosing Weight 88.636, kg, Q6H, Start date: 10/10/14 12:00:00, Duration: 30 day, Stop date: 11/09/14 6:00:00 Notes: Do not exceed 4gm/day of acetaminophen. (Same as: [place] 325/10) Start Date: 10/10/14 Stop Date: 10/10/14 Status: DiscontinuedNorco 10/325 oral tablet 1 tab, Route: PO, Drug Form: TAB, Dosing Weight 88.636, kg, Q4H, PRN Pain Score 4-6, Start date: 10/09/14 10:01:00, Duration: 30 day, Stop date: 11/08/14 10:00:00 Notes: Do not exceed 4gm/day of acetaminophen. (Same as: [place] 325/10) Start Date: 10/09/14 Stop Date: 10/10/14 Status: DiscontinuedNorco 10/325 oral tablet 1 tab, Route: PO, Drug Form: TAB, Dosing Weight 88.636, kg, Q4H, Start date: 10/09/14 12:00:00, Duration: 30 day, Stop date: 11/08/14 8:00:00 Notes: Do not exceed 4gm/day of acetaminophen. (Same as: [place] 325/10) Start Date: 10/09/14 Stop Date: 10/10/14 Status: DiscontinuedNorco 10/325 oral tablet 1 tab, Route: PO, Drug Form: TAB, Dosing Weight 88.636, kg, Q4H, PRN Pain Score 1-3, Start date: 09/28/14 20:01:00, Duration: 30 day, Stop date: 10/28/14 20:00:00 Notes: Do not exceed 4gm/day of acetaminophen. (Same as: [place] 325/10) Start Date: 09/28/14 Stop Date: 10/04/14 Status: DiscontinuedNorco 10/325 oral tablet 1 tab, PO, Q6H, # 60 tab, 0 Refill(s), given to patient Start Date: 10/10/14 Stop Date: 11/14/14 Status: OrderedNorco 10/325 oral tablet 1 tab, Route: PO, Drug Form: TAB, Dosing Weight 88.636, kg, Q4H, Start date: 09/30/14 0:00:00, Duration: 30 day, Stop date: 10/29/14 20:00:00 Notes: Do not exceed 4gm/day of acetaminophen. (Same as: [place] 325/10) Start Date: 09/30/14 Stop Date: 10/04/14 Status: DiscontinuedNorco 5/325 oral tablet 1 tab, Route: PO, Drug Form: TAB, Dosing Weight 88.636, kg, Q4H, PRN Pain Score 4-6, Start date: 10/10/14 8:41:00, Duration: 30 day, Stop date: 11/09/14 8:40:00 Notes: (Same as: [place] 325/5) Do not exceed 4gm/day of acetaminophen. Start Date: 10/10/14 Stop Date: 10/10/14 Status: DiscontinuedNorco 5/325 oral tablet 1 tab, Route: NG, Drug Form: TAB, Dosing Weight 88.636, kg, Q4H, Start date: 09/26/14 12:00:00, Duration: 30 day, Stop date: 10/26/14 8:00:00 Notes: (Same as: [place] 325/5) Do not exceed 4gm/day of acetaminophen. Start Date: 09/26/14 Stop Date: 09/29/14 Status: DiscontinuedOmnipaque 350mg/ml 99 mL, Route: IVP, Drug Form: SOLN, Dosing Weight 88.636, kg, ONCALL, STAT, Start date: 09/19/14 18:24:00, Duration: 1 doses or times, Dose = 2.2ml/kg, Max dose = 100ml -- "To be infused by Radiology Staff ONLY" Special Instructions: Dose = 2.2ml/kg, Max dose = 100ml -- "To be infused by Radiology Staff ONLY" Start Date: 09/19/14 Stop Date: 09/19/14 Status: CompletedOmnipaque 350mg/ml 75 mL, Route: IVP, Drug Form: SOLN, Dosing Weight 88.636, kg, ONCALL, STAT, Start date: 09/25/14 12:24:00, Duration: 1 doses or times, Stop date: 09/26/14 0:00:00, Dose = 2.2ml/kg, Max dose = 100ml --"To be infused by Radiology Staff ONLY" Special Instructions: Dose = 2.2ml/kg, Max dose = 100ml -- "To be infused by Radiology Staff ONLY" Notes: (Same as:Omnipaque 350). Start Date: 09/25/14 Stop Date: 09/29/14 Status: Completedondansetron 4 mg, 2 mL, Route: IVP, Drug form: INJ, ONCE, kg, Priority: STAT, Start date: 09/19/14 17:49:00, Stop date: 09/19/14 17:49:00 Notes: (Same as: Zofran) MEDICATION WASTE Product Size: 4 mgProduct Wasted: ___ mg Start Date: 09/19/14 Stop Date: 09/19/14 Status: Completedondansetron 4 mg, 2 mL, Route: IVP, Drug form: INJ, ONCE, Dosing Weight 88.636, kg, PRN Nausea & Vomiting, Start date: 09/30/14 20:01:00 Notes: (Same as: Zofran) MEDICATION WASTE Product Size: 4 mgProduct Wasted: ___ mg Start Date: 09/30/14 Stop Date: 09/30/14 Status: DiscontinuedoxyCODONE 5 mg immediate release 5 mg, 1 tab, Route: PO, Drug form: TAB, Q6H, Dosing Weight 88.636, kg, Start date: 09/25/14 18:00:00, Duration: 30 day, Stop date: 10/25/14 12:00:00 Notes: (Same as: Roxicodone) Start Date: 09/25/14 Stop Date: 09/25/14 Status: CanceledoxyCODONE 5 mg immediate release 5 mg, 1 tab, Route: PO, Drug form: TAB, Q6H, Dosing Weight 88.636, kg, PRN Other -See Comment, Startdate: 09/25/14 12:21:00, Duration: 30 day, Stop date: 10/25/14 12:20:00, Pain Score 4-10 Notes: (Same as: Roxicodone) Start Date: 09/25/14 Stop Date: 09/25/14 Status: DiscontinuedoxyCODONE 5 mg immediate release 10 mg, 2 tab, Route: PO, Drug form: TAB, Q4H, Dosing Weight 88.636, kg, PRN Pain Score 7-10, Start date: 10/04/14 15:23:00, Duration: 30 day, Stop date: 11/03/14 15:22:00 Notes: (Same as: Roxicodone) Start Date: 10/04/14 Stop Date: 10/09/14 Status: DiscontinuedoxyCODONE 5 mg immediate release 5 mg, 1 tab, Route: PO, Drug form: TAB, Q4H, Dosing Weight 88.636, kg, PRN Pain Score 4-6, Start date: 04/21/15 15:22:00, Duration: 30 day, Stop date: 11/03/14 15:21:00 Notes: (Same as: Roxicodone) Start Date: 10/04/14 Stop Date: 10/09/14 Status: DiscontinuedoxyCODONE 5 mg immediate release 5 mg, 1 tab, Route: PO, Drug form: TAB, Q6H, Dosing Weight 88.636, kg, Start date: 10/04/14 18:00:00, Duration: 30 day, Stop date: 11/03/14 12:00:00 Notes: (Same as: Roxicodone) Start Date: 10/04/14 Stop Date: 10/09/14 Status: DiscontinuedoxyCODONE 5 mg immediate release 10 mg, 2 tab, Route: PO, Drug form: TAB, Q4H, Dosing Weight 88.636, kg, PRN Pain Score 7-10, Start date: 09/25/14 15:37:00, Duration: 30 day, Stop date: 10/25/14 15:36:00 Notes: (Same as: Roxicodone) Start Date: 09/25/14 Stop Date: 09/25/14 Status: DiscontinuedoxyCODONE 5 mg immediate release 5 mg, 1 tab, Route: PO, Drug form: TAB, Q4H, Dosing Weight 88.636, kg, PRN Pain Score 4-6, Start date: 09/25/14 15:37:00, Duration: 30 day, Stop date: 10/25/14 15:36:00 Notes: (Same as: Roxicodone) Start Date: 09/25/14 Stop Date: 09/28/14 Status: DiscontinuedPlasmaLyte A PH-7.4 1,000 mL 1,000 mL, Rate: 1,000 ml/hr, Infuse over: 1 hr, Route: IV, Dosing Weight 88.636 kg, Total Volume: 1,000, Start date: 09/26/14 11:04:00, Duration: 1 doses or times, Stop date: 09/26/14 12:03:00 Start Date: 09/26/14 Stop Date: 09/26/14 Status: CompletedPlasmaLyte A PH-7.4 1,000 mL 1,000 mL, Rate: 100 ml/hr, Infuse over: 10 hr, Route: IV, Dosing Weight 88.636 kg, Total Volume: 1,000, Start date: 09/20/14 2:20:00, Duration: 30 day, Stop date: 10/20/14 2:19:00 Start Date: 09/20/14 Stop Date: 09/21/14 Status: DiscontinuedPlasmaLyte A PH-7.4 1,000 mL 1,000 mL, Rate: 70 ml/hr, Infuse over: 14.3 hr, Route: IV, Dosing Weight 88.636 kg, Total Volume: 1,000, Start date: 09/30/14 0:01:00, Stop date: 10/02/14 0:00:00 Start Date: 09/30/14 Stop Date: 10/02/14 Status: CompletedPlasmaLyte A PH-7.4 1,000 mL 1,000 mL, Rate: 100 ml/hr, Infuse over: 10 hr, Route: IV, Dosing Weight 88.636 kg, Total Volume: 1,000, bolus 500ml Plasmalyte after patient returns from CT scan, then run infusion at 100ml/h, Priority: Within 4 hours, Start date: 09/29/14 17:21:00, D... Start Date: 09/29/14 Stop Date: 09/29/14 Status: Discontinuedpneumococcal 23-valent vaccine 0.5 mL, Route: IM, Drug Form: INJ, Daily, Start date: 09/20/14 9:00:00, Duration: 1 doses or times, Stop date: 09/20/14 9:00:00 Notes: (Same as: Pneumovax 23) Refrigerate Start Date: 09/20/14 Stop Date: 09/20/14 Status: CompletedPrenatal Multivitamins with Folic Acid 0.8 mg oral tablet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
--- OUTSIDE RECORDS SUMMARY | 2019-11-03 22:29 | XMS REPORT | Summary of Care ---
:1950 Author Encounter HQ Daquan(CAILIN) [id number] Date(s): 10/28/14 - 11/09/[address] [facility] [place], [place] [address] [place] [facility] provided by [facility] [place] [address]- Final: Discharge Disposition: Home Physician Attending: Jones Saul MD Physician Admitting: Jones Saul MD Vital Signs Most recent to oldest 1 2 3 [Reference Range]: Height 190.5 cm 190.5 cm (10/29/14 3:43 AM) (10/28/14 12:36 PM) Temperature Oral [96.4-99.1 98.1 DegF 98.3 DegF 98.1 DegF DegF] (11/09/14 11:50 AM) (11/09/14 8:40 AM) (11/09/14 5: 46 AM) Blood Pressure [90-140/60-90 126/88 mmHg 125/78 mmHg 124 /82 mmHg mmHg] (11/09/14 11:50 AM) (11/09/14 8:40 AM) (11/09/14 5: 46 AM) Respiratory Rate [14-20 18 BRMIN 18 BRMIN 18 BRMIN BRMIN] (11/09/14 11:50 AM) (11/09/14 8:40 AM) (11/09/14 5: 46 AM) Peripheral Pulse Rate 95 bpm 99 bpm 96 bpm [60-100 bpm] (11/09/14 11:50 AM) (11/09/14 8:40 AM) (11/09/14 5: 46 AM) Weight 84.091 kg 84.091 kg 84.091 kg (11/08/14 10:17 AM) (10/29/14 3:43 AM) (10/28/14 12 :36 PM) Body Mass Index 23.17 m2 23.17 m2 (10/29/14 3:43 AM) (10/28/14 12:36 PM) Problem List Condition Effective Dates Status Health Status Informant DM (diabetes mellitus)(Confirmed) Resolved HTN (hypertension)(Confirmed) Resolved Allergies, Adverse Reactions, Alerts Substance Reaction Severity Status NKDA Active Medications Altace 10 mg, 2 cap, Route: PO, Drug form: CAP, Daily, Start date: 10/29/14 9:00:00, Duration: 30 day, Stopdate: 11/27/14 9:00:00 Notes: (Same as:Altace) Start Date: 10/29/14 Stop Date: 11/09/14 Status: DiscontinuedAncef + Sodium Chloride 0.9% IV 100 mL 2 gm, Route: IVPB, ABXQ8H, Dosing Weight 84.091, kg, Start date: 11/01/14 15:00:00, Duration: 10 day, Stop date: 11/11/14 9:00:00 Notes: (Same As: AncefAllenfzol)Cefazolin FOR IV SET ONLY MEDICATION WASTE Product Size:1000 mgProduct Wasted: ___ mg Start Date: 11/01/14 Stop Date: 11/03/14 Status: Discontinuedaspirin 81 mg, 1 tab, Route: CHEW, Drug form: CHEWTAB, Daily, Dosing Weight 84.091, kg, Start date: 159:00:00, Duration: 30 day, Stop date: 11/27/14 9:00:00 Notes: Take with food. Start Date: 10/29/14 Stop Date: 11/09/14 Status: Discontinuedatorvastatin 20 mg, 2 tab, Route: PO, Drug form: TAB, Bedtime, Dosing Weight 84.091, kg, Start date: 10/28/14 21:00:00, Duration: 30 day, Stop date: 11/26/14 21:00:00 Notes: (Same As: Lipitor) Start Date: 10/28/14 Stop Date: 11/09/14 Status: Discontinuedbisacodyl 10 mg, 1 supp, Route: DE, Drug form: SUPP, ONCE, Dosing Weight 84.091, kg, Start date: 11/01/14 8:22:00, Stop date: 11/01/14 8:22:00 Notes: (Same As: Dulcolax, Bisco-Lax) Start Date: 11/01/14 Stop Date: 11/01/14 Status: Completedbisacodyl 10 mg, 1 supp, Route: DE, Drug form: SUPP, ONCE, Dosing Weight 84.091, kg, PRN as needed for constipation, Start date: 10/30/14 13:54:00 Notes: (Same As: Dulcolax, Bisco-Lax) Start Date: 10/30/14 Stop Date: 11/09/14 Status: Discontinuedcalcium gluconate + Sodium Chloride 0.9% IV 50 mL 1,000 mg, 10 mL, Route: IVPB, ONCE, Dosing Weight 84.091, kg, Start date: 10/30/14 9:45:00, Stop date: 10/30/14 9:45:00 Start Date: 10/30/14 Stop Date: 10/30/14 Status: Completedcalcium gluconate + Sodium Chloride 0.9% IV 80 mL 2,000 mg, 20 mL, Route: IVPB, ONCE, Dosing Weight 84.091, kg, Start date: 10/31/14 8:34:00, Stop date: 10/31/14 8:34:00 Start Date: 10/31/14 Stop Date: 10/31/14 Status: CompletedceFAZolin 2 gm, Route: IV, ONCE, Dosing Weight 84.091, kg, Start date: 11/02/14 20:03:00, Duration: 1 doses ortimes, Stop date: 11/02/14 20:03:00 Start Date: 11/02/14 Stop Date: 11/02/14 Status: Completedcefepime 1 gm, Route: IV, Drug form: INJ, ABXQ8H, Dosing Weight 84.091, kg, Start date: 10/28/14 21:00:00, Duration: 30 day, Stop date: 11/27/14 13:00:00 Notes: (Same As: Maxipime) MEDICATION WASTE Product Size: 1000 mgProduct Wasted: ___ mg Start Date: 10/28/14 Stop Date: 11/01/14 Status: DiscontinuedColace 100 mg oral capsule 100 mg, 1 cap, Route: PO, Drug form: CAP, BID, Dosing Weight 84.091, kg, Start date: 10/29/14 9:00:00, Duration: 30 day, Stop date: 11/27/14 17:00:00 Notes: (Same as: Colace) (Do Not Crush) Start Date: 10/29/14 Stop Date: 11/09/14 Status: [id number] 1000 mL 1,000 mL, Rate: 100 ml/hr, Infuse over: 10 hr, Route: IV, Dosing Weight 84.091 kg, Total Volume: 1,000, Start date: 10/28/14 20:11:00, Duration: 30 day, Stop date: 11/27/14 20:10:00 Start Date: 10/28/14 Stop Date: 10/28/14 Status: [id number] 1/2NS + KCL 20mEq/L 1000ml (Premix) 1000 mL 1,000 mL, Rate: 125 ml/hr, Infuse over: 8 hr, Route: IV, Dosing Weight 84.091 kg, Total Volume: 1,000, Start date: 10/28/14 20:37:00, Duration: 30 day, Stop date: 11/27/14 20:36:00 Notes: PREMIX IV - Do Not Alter Start Date: 10/28/14 Stop Date: 10/31/14 Status: DiscontinuedDextrose 50% Syringe 12.5 gm, Route: IVP, Dosing Weight 84.091, kg, ONCE, STAT, Start date: 10/28/14 20:29:00, Stop date:10/28/14 20:29:00 Start Date: 10/28/14 Stop Date: 10/28/14 Status: CompletedDextrose 50% Syringe 12.5 gm, Route: IVP, Dosing Weight 84.091, kg, ONCE, Start date: 10/29/14 1:24:00, Stop date: 10/29/14 1:24:00 Start Date: 10/29/14 Stop Date: 10/29/14 Status: CompletedDilaudid 1 mg, 0.5 mL, Route: IVP, Drug form: SOLN, ONCE, Dosing Weight 84.091, kg, Priority: STAT, Start date: 10/28/14 18:23:00, Stop date: 10/28/14 18:23:00 Notes: Same as: Dilaudid Start Date: 10/28/14 Stop Date: 10/28/14 Status: CompletedDilaudid 0.5 mg, 0.25 mL, Route: IV, Drug form: INJ, Q3H, Dosing Weight 84.091, kg, PRN Pain Score 7-10, Start date: 10/28/14 20:47:00, Duration: 30 day, Stop date: 11/27/14 20:46:00 Notes: (Same as: Dilaudid) Start Date: 10/28/14 Stop Date: 10/30/14 Status: Discontinuedenoxaparin 30 mg, 0.3 mL, Route: SUB-Q, Drug form: INJ, [id number], Dosing Weight 84.091, kg, Start date: 10/28/14 21:00:00, Duration: 30 day, Stop date: 11/27/14 9:00:00 Notes: (Same as: Lovenox) Start Date: 10/28/14 Stop Date: 11/09/14 Status: Discontinuedesmolol IV Push 10 mg, Route: IVP, Q5Min, Dosing Weight 84.091, kg, PRN Other -See Comment, Start date: 10/31/14 9:02:00, Duration: 5 doses or times, Stop date: Limited # of times Start Date: 10/31/14 Stop Date: 10/31/14 Status: Discontinuedferrous sulfate 325 mg, 1 tab, Route: PO, Drug form: ECTAB, Daily, Dosing Weight 84.091, kg, Start date: 10/29/14 9:00:00, Duration: 30 day, Stop date: 11/27/14 9:00:00 Notes: Give with food. "Do Not Crush" Start Date: 10/29/14 Stop Date: 11/09/14 Status: DiscontinuedFlagyl 500 mg, 100 mL, Route: IV, Drug form: INJ, ABXQ8H, Dosing Weight 84.091, kg, Start date: 10/28/14 21:00:00, Duration: 30 day, Stop date: 11/27/14 13:00:00 Notes: (Same as: Flagyl) Avoid alcohol. Start Date: 10/28/14 Stop Date: 11/01/14 Status: Discontinuedflumazenil 0.2 mg, Route: IVP, PRN, Dosing Weight 84.091, kg, PRN Benzodiazepine Reversal, Initial dose, Start date: 11/02/14 20:50:00, Duration: 30 day, Stop date: 12/02/14 20:49:00 Start Date: 11/02/14 Stop Date: 11/02/14 Status: Discontinuedflumazenil 0.2 mg, 2 mL, Route: IVP, Drug form: INJ, PRN, Dosing Weight 84.091, kg, PRN Benzodiazepine Reversal, Initial dose, Start date: 10/29/14 0:44:00, Duration: 30 day, Stop date: 11/28/14 0:43:00 Notes: (Same as: Romazicon) Start Date: 10/29/14 Stop Date: 10/31/14 Status: Discontinuedflumazenil 0.2 mg, 2 mL, Route: IVP, Drug form: INJ, PRN, Dosing Weight 84.091, kg, PRN Benzodiazepine Reversal, Initial dose, Start date: 10/31/14 9:02:00, Duration: 30 day, Stop date: 11/30/14 9:01:00 Notes: (Same as: Romazicon) Start Date: 10/31/14 Stop Date: 10/31/14 Status: Discontinuedgabapentin 300 mg oral capsule 600 mg = 2 cap, PO, Q8H, # 120 cap, 0 Refill(s) Start Date: 11/09/14 Status: Orderedgabapentin 600 mg oral tablet 600 mg, 2 cap, Route: PO, Drug form: CAP, Q8H, Dosing Weight 84.091, kg, Start date: 10/29/14 0:00:00, Duration: 30 day, Stop date: 11/27/14 16:00:00 Notes: (Same as: Neurontin) Start Date: 10/29/14 Stop Date: 11/09/14 Status: DiscontinuedhydrALAZINE 10 mg, 0.5 mL, Route: IVP, Drug form: INJ, Q20Min, Dosing Weight 84.091, kg, PRN Elevated BP, Start date: 10/31/14 9:02:00, Duration: 2 doses or times, Stop date: Limited # of times Notes: (Same as: Apresoline)Push over 5 minutes Start Date: 10/31/14 Stop Date: 10/31/14 Status: Discontinuedhydromorphone 0.5 mg, 0.25 mL, Route: IVP, Drug form: INJ, Q5Min, Dosing Weight 84.091, kg, PRN Pain Score 7-10, Start date: 10/29/14 0:44:00, Duration: 4 doses or times, Stop date: Limited # of times Notes: Same as: Dilaudid Start Date: 10/29/14 Stop Date: 10/30/14 Status: Discontinuedhydromorphone 0.5 mg, 0.25 mL, Route: IVP, Drug form: INJ, Q5Min, Dosing Weight 84.091, kg, PRN Pain Score 7-10, Start date: 10/31/14 9:02:00, Duration: 4 doses or times, Stop date: Limited # of times Notes: Same as: Dilaudid Start Date: 10/31/14 Stop Date: 10/31/14 Status: DiscontinuedInsulin regular 6 unit, 0.06 mL, Route: SUB-Q, Drug form: SOLN, TID-Before Meals, Dosing Weight 84.091, kg, PRN Blood Glucose Results, Start date: 10/28/14 20:35:00, Duration: 30 day, Stop date: 11/27/14 20:34:00 Notes: (Same as: Humulin R) Roll in palms of hands gently; Do not shake vigorously. "single patientuse only"(Restricted to patients requiring a dose > 60 units) Stable for 28 days at room temperatureExpires in days from Date Start Date: 10/28/14 Stop Date: 11/09/14 Status: DiscontinuedInsulin regular 8 unit, 0.08 mL, Route: SUB-Q, Drug form: SOLN, TID-Before Meals, Dosing Weight 84.091, kg, PRN Blood Glucose Results, Start date: 10/28/14 20:35:00, Duration: 30 day, Stop date: 11/27/14 20:34:00 Notes: (Same as: Humulin R) Roll in palms of hands gently; Do not shake vigorously. "single patientuse only"(Restricted to patients requiring a dose > 60 units) Stable for 28 days at room temperatureExpires in days from Date Start Date: 10/28/14 Stop Date: 11/09/14 Status: DiscontinuedInsulin regular 10 unit, 0.1 mL, Route: SUB-Q, Drug form: SOLN, TID-Before Meals, Dosing Weight 84.091, kg, PRN Blood Glucose Results, Start date: 10/28/14 20:35:00, Duration: 30 day, Stop date: 11/27/14 20:34:00 Notes: (Same as: Humulin R) Roll in palms of hands gently; Do not shake vigorously. "single patientuse only"(Restricted to patients requiring a dose > 60 units) Stable for 28 days at room temperatureExpires in days from Date Start Date: 10/28/14 Stop Date: 11/09/14 Status: DiscontinuedInsulin regular 2 unit, 0.02 mL, Route: SUB-Q, Drug form: SOLN, TID-Before Meals, Dosing Weight 84.091, kg, PRN Blood Glucose Results, Start date: 10/28/14 20:35:00, Duration: 30 day, Stop date: 11/27/14 20:34:00 Notes: (Same as: Humulin R) Roll in palms of hands gently; Do not shake vigorously. "single patientuse only"(Restricted to patients requiring a dose > 60 units) Stable for 28 days at room temperatureExpires in days from Date Start Date: 10/28/14 Stop Date: 11/09/14 Status: DiscontinuedInsulin regular 4 unit, 0.04 mL, Route: SUB-Q, Drug form: SOLN, TID-Before Meals, Dosing Weight 84.091, kg, PRN Blood Glucose Results, Start date: 10/28/14 20:35:00, Duration: 30 day, Stop date: 11/27/14 20:34:00 Notes: (Same as: Humulin R) Roll in palms of hands gently; Do not shake vigorously. "single patientuse only"(Restricted to patients requiring a dose > 60 units) Stable for 28 days at room temperatureExpires in days from Date Start Date: 10/28/14 Stop Date: 11/09/14 Status: Discontinuedlabetalol 10 mg, Route: IVP, Q5Min, Dosing Weight 84.091, kg, PRN Elevated BP, Start date: 11/02/14 20:50:00, Duration: 5 doses or times, Stop date: Limited # of times Start Date: 11/02/14 Stop Date: 11/02/14 Status: Discontinuedlabetalol 10 mg, Route: IVP, Q5Min, Dosing Weight 84.091, kg, PRN Elevated BP, Start date: 10/31/14 9:02:00, Duration: 5 doses or times, Stop date: Limited # of times Start Date: 10/31/14 Stop Date: 10/31/14 Status: DiscontinuedLantus 40 unit, 0.4 mL, Route: SUB-Q, Drug form: INJ, Daily, Dosing Weight 84.091, kg, Start date: 159:00:00, Stop date: 11/27/14 9:00:00 Notes: Same as Vannesa Genao not hold insulin without contacting prescriber"single patient use only" Stable for 28 days at room temperature.Expires in days from Date Start Date: 10/29/14 Stop Date: 11/09/14 Status: Discontinuedlidocaine-epi 1%-1:347510 1 ml, Route: SUB-Q, Drug Form: SOLN, Dosing Weight 84.091, kg, ONCE, STAT, Start date: 10/28/14 18:22:00, Stop date: 10/28/14 18:22:00 Start Date: 10/28/14 Stop Date: 10/29/14 Status: CompletedMag-Ox 400 400 mg, 1 tab, Route: PO, Drug form: TAB, Daily, Dosing Weight 84.091, kg, Start date: 11/03/14 9:00:00, Duration: 30 day, Stop date: 12/02/14 9:00:00 Notes: (Same as: Mag-Ox 400)Magnesium oxide [id number] elemental magnesiumDose=____mg magnesium oxide (___mg elemental magnesium) Start Date: 11/03/14 Stop Date: 11/09/14 Status: Discontinuedmagnesium sulfate 2 gm, 50 mL, Route: IVPB, Drug form: INJ, Q2H, Dosing Weight 84.091, kg, Total dose = 4 gm, Start date: 11/01/14 10:00:00, Stop date: 11/01/14 13:59:00 Start Date: 11/01/14 Stop Date: 11/01/14 Status: Completedmagnesium sulfate 2 gm, 50 mL, Route: IVPB, Drug form: INJ, Q2H, Dosing Weight 84.091, kg, Total dose = 4 gm, Start date: 10/31/14 10:00:00, Stop date: 10/31/14 13:59:00 Start Date: 10/31/14 Stop Date: 10/31/14 Status: Completedmagnesium sulfate 2 gm, 50 mL, Route: IVPB, Drug form: INJ, Q2H, Dosing Weight 84.091, kg, Total dose = 4 gm, Start date: 10/30/14 10:00:00, Stop date: 10/30/14 13:59:00 Start Date: 10/30/14 Stop Date: 10/30/14 Status: Completedmagnesium sulfate 2 gm, 50 mL, Route: IVPB, Drug form: INJ, ONCE, Dosing Weight 84.091, kg, Total dose = 4 gm, Start date: 10/31/14 16:46:00, Stop date: 10/31/14 16:46:00 Start Date: 10/31/14 Stop Date: 10/31/14 Status: Completedmeperidine 12.5 mg, Route: IVP, Q30Min, Dosing Weight 84.091, kg, PRN Other -See Comment, For shivering, Start date: 10/31/14 9:02:00, Duration: 2 doses or times, Stop date: Limited # of times Start Date: 10/31/14 Stop Date: 10/31/14 Status: Discontinuedmetoprolol 1 mg, 1 mL, Route: IVP, Drug form: INJ, Q5Min, Dosing Weight 84.091, kg, PRN Other -See Comment, Start date: 10/29/14 0:44:00, Duration: 5 doses or times, Stop date: Limited # of times Notes: (Same as: Lopressor)Push over 2 minutes Start Date: 10/29/14 Stop Date: 10/31/14 Status: Discontinuedmetoprolol tartrate 25 mg, 1 tab, Route: PO, Drug form: TAB, Q12H, Dosing Weight 84.091, kg, Start date: 10/28/14 21:00:00, Duration: 30 day, Stop date: 11/27/14 9:00:00 Notes: (Same as: Lopressor) Start Date: 10/28/14 Stop Date: 11/09/14 Status: Discontinuedmicafungin + Sodium Chloride 0.9% IV 100 mL 100 mg, Route: IV, [id number], Dosing Weight 84.091, kg, Start date: 10/31/14 9:00:00, Duration: 30 day, Stop date: 11/29/14 11:00:00 Notes: Same as MycamineProtect from light MEDICATION WASTE Product Size: 100 mgProduct Wasted: ___ mg Start Date: 10/31/14 Stop Date: 11/03/14 Status: DiscontinuedMiraLax 17 gm, 1 pkt, Route: PO, Drug form: PWDR, Daily, Dosing Weight 84.091, kg, Start date: 10/29/14 9:00:00, Duration: 30 day, Stop date: 11/27/14 9:00:00 Notes: Dissolve in 8 oz of water or juice.(Same as: Miralax) Start Date: 10/29/14 Stop Date: 11/09/14 Status: Discontinuedmorphine Sulfate 2 mg, Route: IVP, Q5Min, Dosing Weight 84.091, kg, PRN Pain Score 4-6, Start date: 11/02/14 20:50:00, Duration: 5 doses or times, Stop date: Limited # of times Start Date: 11/02/14 Stop Date: 11/02/14 Status: Discontinuednaloxone 0.04 mg, Route: IVP, Q2MIN, Dosing Weight 84.091, kg, PRN Narcotic Reversal, Start date: 11/02/14 20:50:00, Duration: 8 doses or times, Stop date: Limited # of times Start Date: 11/02/14 Stop Date: 11/02/14 Status: Discontinuednaloxone 0.04 mg, 0.1 mL, Route: IVP, Drug form: INJ, Q2MIN, Dosing Weight 84.091, kg, PRN Narcotic Reversal,Start date: 10/29/14 0:44:00, Duration: 8 doses or times, Stop date: Limited # of times Notes: Same as Narcan Start Date: 10/29/14 Stop Date: 10/31/14 Status: Discontinuednaloxone 0.04 mg, 0.1 mL, Route: IVP, Drug form: INJ, Q2MIN, Dosing Weight 84.091, kg, PRN Narcotic Reversal,Start date: 10/31/14 9:02:00, Duration: 8 doses or times, Stop date: Limited # of times Notes: Same as Narcan Start Date: 10/31/14 Stop Date: 10/31/14 Status: DiscontinuedNeutra-Phos 1 pkt, Route: PO, Drug Form: PDR/REC, Dosing Weight 84.091, kg, TID, Start date: 11/03/14 9:00:00, Duration: 30 day, Stop date: 12/02/14 17:00:00 Notes: (Same as: Neutra-Phos) Each 1.25 gm pkt has 250mg phosphorous. Start Date: 11/03/14 Stop Date: 11/09/14 Status: DiscontinuedNeutra-Phos 1 pkt, Route: PO, Dosing Weight 84.091, kg, BID-Meals, Start date: 11/03/14 8:00:00, Duration: 30 day, Stop date: 12/02/14 17:00:00 Start Date: 11/03/14 Stop Date: 11/02/14 Status: CanceledNorco 5/325 oral tablet 1 tab, Route: PO, Drug Form: TAB, Dosing Weight 84.091, kg, Q6H, Start date: 10/29/14 0:00:00, Duration: 30 day, Stop date: 11/27/14 18:00:00 Notes: (Same as: Morrow 325/5) Do not exceed 4gm/day of acetaminophen. Start Date: 10/29/14 Stop Date: 10/31/14 Status: DiscontinuedNorco 5/325 oral tablet 1 tab, Route: PO, Drug Form: TAB, Dosing Weight 84.091, kg, Q4H, PRN Pain Score 4-6, Start date: 10/29/14 0:41:00, Duration: 30 day, Stop date: 11/28/14 0:40:00, pain scale 4-6 Notes: (Same as: Morrow 325/5) Start Date: 10/29/14 Stop Date: 10/31/14 Status: DiscontinuedNorco 7.5/325 oral tablet 1 tab, Route: PO, Drug Form: TAB, Dosing Weight 84.091, kg, Q6H, Start date: 10/31/14 23:00:00, Duration: 30 day, Stop date: 11/30/14 18:00:00 Notes: Same as Morrow 325-7.5mg Do not exceed 4gm/day of acetaminophen. Start Date: 10/31/14 Stop Date: 11/09/14 Status: DiscontinuedNorco 7.5/325 oral tablet 1 tab, PO, Q6H, PRN Pain Score 6-10, not to exceed 8 tablets/day, # 30 tab, 0 Refill(s) Special Instructions: not to exceed 8 tablets/day Start Date: 11/09/14 Stop Date: 11/23/14 Status: OrderedNorco 7.5/325 oral tablet 1 tab, Route: PO, Drug Form: TAB, Dosing Weight 84.091, kg, Q6H, PRN Pain Score 4-6, Start date: 10/31/14 16:49:00, Duration: 30 day, Stop date: 11/30/14 16:48:00 Notes: Same as Morrow 325-7.5mg Do not exceed 4gm/day of acetaminophen. Start Date: 10/31/14 Stop Date: 11/09/14 Status: DiscontinuedOmnipaque 350mg/ml 100 mL, Route: IVP, Drug Form: SOLN, Dosing Weight 84.091, kg, ONCALL, STAT, Start date: 10/28/14 17:32:00, Duration: 1 doses or times, Dose = 2.2ml/kg, Max dose = 100ml -- "To be infused by RadiologyStaff ONLY" Special Instructions: Dose = 2.2ml/kg, Max dose = 100ml -- "To be infused by Radiology Staff ONLY" Start Date: 10/28/14 Stop Date: 10/28/14 Status: Completedondansetron 4 mg, Route: IVP, ONCE, Dosing Weight 84.091, kg, PRN Nausea & Vomiting, Start date: 11/02/14 20:50:00 Start Date: 11/02/14 Stop Date: 11/02/14 Status: Discontinuedondansetron 4 mg, 2 mL, Route: IVP, Drug form: INJ, ONCE, Dosing Weight 84.091, kg, PRN Nausea & Vomiting, Start date: 10/29/14 1:12:00 Notes: (Same as: Soo) MEDICATION WASTE Product Size: 4 mgProduct Wasted: ___ mg Start Date: 10/29/14 Stop Date: 10/29/14 Status: Completedondansetron 4 mg, 2 mL, Route: IVP, Drug form: INJ, ONCE, Dosing Weight 84.091, kg, PRN Nausea & Vomiting, Start date: 10/31/14 9:02:00 Notes: (Same as: Soo) MEDICATION WASTE Product Size: 4 mgProduct Wasted: ___ mg Start Date: 10/31/14 Stop Date: 10/31/14 Status: DiscontinuedPlasmaLyte A PH-7.4 1,000 mL 1,000 mL, Rate: 100 ml/hr, Infuse over: 10 hr, Route: IV, Dosing Weight 84.091 kg, Total Volume: 1,000, Start date: 11/05/14 0:01:00, Duration: 30 day, Stop date: 12/05/14 0:00:00 Start Date: 11/05/14 Stop Date: 11/04/14 Status: CanceledPlasmaLyte A PH-7.4 1,000 mL 1,000 mL, Rate: 100 ml/hr, Infuse over: 10 hr, Route: IV, Dosing Weight 84.091 kg, Total Volume: 1,000, Start date: 11/02/14 0:01:00, Duration: 30 day, Stop date: 12/02/14 0:00:00 Start Date: 11/02/14 Stop Date: 11/02/14 Status: DiscontinuedPlasmaLyte A PH-7.4 1,000 mL 1,000 mL, Rate: 100 ml/hr, Infuse over: 10 hr, Route: IV, Dosing Weight 84.091 kg, Total Volume: 1,000, Start date: 10/30/14 0:01:00, Duration: 30 day, Stop date: 11/29/14 0:00:00 Start Date: 10/30/14 Stop Date: 10/31/14 Status: DiscontinuedPlasmaLyte A PH-7.4 1000 mL 1,000 mL, Rate: 125 ml/hr, Infuse over: 8 hr, Route: IV, Dosing Weight 84.091 kg, Total Volume: 1,000, Start date: 10/28/14 20:35:00, Duration: 30 day, Stop date: 11/27/14 20:34:00 Start Date: 10/28/14 Stop Date: 10/28/14 Status: Discontinuedpolyethylene glycol 3350 PO, Daily, 0 Refill(s) Start Date: 11/09/14 Status: Orderedquinapril 40 mg, Route: PO, Drug form: TAB, Daily, Dosing Weight 84.091, kg, Start date: 10/29/14 9:00:00, Duration: 30 day, Stop date: 11/27/14 9:00:00 Start Date: 10/29/14 Stop Date: 10/28/14 Status: Deletedsenna 1 tab, Route: PO, Drug Form: TAB, Dosing Weight 84.091, kg, Daily, Start date: 11/01/14 9:00:00, Duration: 30 day, Stop date: 11/30/14 9:00:00 Start Date: 11/01/14 Stop Date: 10/31/14 Status: Deletedsenna 8.6 mg, 1 tab, Route: PO, Drug Form: TAB, Dosing Weight 84.091, kg, Daily, Start date: 10/30/14 17:00:00, Duration: 30 day, Stop date: 11/29/14 9:00:00 Notes: (Same as: Chester) Start Date: 10/30/14 Stop Date: 11/09/14 Status: Discontinuedsenna 8.6 mg oral tablet 8.6 mg = 1 tab, PO, Daily, 0 Refill(s) Start Date: 11/09/14 Status: Orderedsodium phosphate + Sodium Chloride 0.9% IV 250 mL 30 mmol, 10 mL, Route: IVPB, ONCE, Dosing Weight 84.091, kg, Start date: 10/31/14 8:35:00, Stop date: 10/31/14 8:35:00 Start Date: 10/31/14 Stop Date: 10/31/14 Status: Completedsodium phosphate + Sodium Chloride 0.9% IV 250 mL 15 mmol, 5 mL, Route: IVPB, ONCE, Dosing Weight 84.091, kg, Start date: 11/01/14 12:02:00, Stop date: 11/01/14 12:02:00 Start Date: 11/01/14 Stop Date: 11/01/14 Status: Completedsodium phosphate + Sodium Chloride 0.9% IV 250 mL 15 mmol, 5 mL, Route: IVPB, ONCE, Dosing Weight 84.091, kg, Start date: 10/30/14 9:44:00, Stop date:10/30/14 9:44:00 Start Date: 10/30/14 Stop Date: 10/30/14 Status: Completedtramadol 100 mg, 2 tab, Route: PO, Drug form: TAB, Q8H, Dosing Weight 84.091, kg, Start date: 10/29/14 0:00:00, Duration: 30 day, Stop date: 11/27/14 16:00:00 Notes: Not to exceed 400mg/day. (Same As: Saar) Start Date: 10/29/14 Stop Date: 11/09/14 Status: Discontinuedtramadol 50 mg oral tablet See Instructions, PRN Pain Score 1-5, 1-2 tab PO Q6H, # 50 tab, 1 Refill(s) Special Instructions: 1-2 tab PO Q6H Start Date: 11/09/14 Stop Date: 11/23/14 Status: OrderedTums 1,500 mg, 3 tab, Route: CHEW, Drug form: CHEWTAB, TID, Dosing Weight 84.091, kg, Start date: 11/03/14 13:00:00, Duration: 30 day, Stop date: 12/03/14 9:00:00 Notes: (Same As: Tumconnie)Calcium Carbonate 500 mg = 200 mg elemental calcium Dose = mg calcium carbonate ( mg elemental calcium) Start Date: 11/03/14 Stop Date: 11/09/14 Status: Discontinuedvancomycin 1 gm, Route: IV, Drug form: INJ, [id number], Dosing Weight 84.091, kg, Start date: 10/28/14 21:00:00, Stop date: 11/27/14 13:00:00 Notes: (Same As: Vancocin)Infusion rate< 1000 mg: infuse over 1 [id number] - 1500 mg: infuse over 1.5 [id number] - 2000 mg: infuse over 2 hours> 2001 mg: infuse over 2.5 hours MEDICATION WASTE Product Size: 1000 mgProduct Wasted: ___ mg Start Date: 10/28/14 Stop Date: 10/30/14 Status: Discontinuedvancomycin + Sodium Chloride 0.9% IV 250 mL 1.5 gm, Route: IV, [id number], Dosing Weight 84.091, kg, Start date: 10/30/14 14:00:00, Duration: 30 day, Stop date: 11/29/14 10:00:00 Notes: (Same As: Vancocin)Infusion rate< 1000 mg: infuse over 1 [id number] - 1500 mg: infuse over 1.5 hoursVancomycin FOR IV SET [id number] - 2000 mg: infuse over 2 hours> 2001 mg: infuse over 2.5 hours MEDICATION WASTE Product Size: 1000 mgProduct Wasted: ___ mg Start Date: 10/30/14 Stop Date: 11/01/14 Status: Discontinued Results BLOOD BANK RESULTS Most recent to oldest [Reference Range]: 1 2 3 ABO/Rh B POS B POS *Unknown* *Unknown* (11/02/14 3:12 AM) (10/30/14 5:05 AM) Antibody Scrn Negative Negative (11/02/14 3:12 AM) (10/30/14 5:05 AM) ELECTROLYTES Most recent to oldest 1 2 3 [Reference Range]: Sodium Lvl [135-145 mEq/L] 141 mEq/L 138 mEq/L 138 m Eq/L (11/04/14 5:07 AM) (11/03/14 5:49 AM) (11/02/14 3:1 2 AM) Potassium Lvl [3.5-5.1 4.2 mEq/L 3.8 mEq/L 4.3 mEq/L mEq/L] (11/04/14 5:07 AM) (11/03/14 5:49 AM) (11/02/14 3:1 2 AM) Chloride Lvl [95-109 mEq/L] 107 mEq/L 105 mEq/L 104 mEq/L (11/04/14 5:07 AM) (11/03/14 5:49 AM) (11/02/14 3:1 2 AM) CO2 [24-32 mEq/L] 29 mEq/L 25 mEq/L 26 mEq/L (11/04/14 5:07 AM) (11/03/14 5:49 AM) (11/02/14 3:1 2 AM) AGAP [10.0-20.0 mEq/L] 9.2 mEq/L 11.8 mEq/L 12.3 mEq/ L *LOW* (11/03/14 5:49 AM) (11/02/14 3:12 AM) (11/04/14 5:07 AM) CHEM PANEL Most recent to oldest 1 2 3 [Reference Range]: Creatinine Lvl [0.5-1.4 0.6 mg/dL 0.7 mg/dL 0.7 mg/d L mg/dL] (11/04/14 5:07 AM) (11/03/14 5:49 AM) (11/02/14 3:1 2 AM) eGFR 108 mL/min/1.73m2 1 101 mL/min/1.73m2 2 101 mL/m in/1.73m2 3 *NA* *NA* *NA* (11/04/14 5:07 AM) (11/03/14 5:49 AM) (11/02/14 3:1 2 AM) BUN [7-22 mg/dL] 10 mg/dL 13 mg/dL 12 mg/dL (11/04/14 5:07 AM) (11/03/14 5:49 AM) (11/02/14 3:1 2 AM) Glucose Lvl [70-99 mg/dL] 97 mg/dL 4 220 mg/dL 5 106 mg /dL 6 (11/04/14 5:07 AM) *HI* *HI* (11/03/14 5:49 AM) (11/02/14 3:12 AM) Calcium Lvl [8.5-10.5 7.8 mg/dL 8.2 mg/dL 8.3 mg/dL mg/dL] *LOW* *LOW* *LOW* (11/04/14 5:07 AM) (11/03/14 5:49 AM) (11/02/14 3:1 2 AM) Phosphorus [2.5-4.5 mg/dL] 2.6 mg/dL 1.9 mg/dL 2.3 m g/dL (11/04/14 5:07 AM) *LOW* *LOW* (11/03/14 5:49 AM) (11/02/14 3:12 AM) Magnesium Lvl [1.8-2.4 1.6 mg/dL 1.6 mg/dL 1.9 mg/dL mg/dL] *LOW* *LOW* (11/02/14 3:12 AM ) (11/04/14 5:07 AM) (11/03/14 5:49 AM) Lactic Acid Lvl [0.5-2.2 1.1 mMol/L 0.9 mMol/L mMol/L] (10/29/14 12:42 AM) (10/28/14 7:39 PM) 1Result Comment: The eGFR is calculated using [...] values reflect the clinical guidelines of the [place] [employer].5Interpretive Data: Adult reference range values reflect the clinical guidelines of the [place] [employer].6Interpretive Data: Adult reference range values reflect the clinical guidelines of the [place] [employer].SPECIAL CHEMISTRY Most recent to oldest [Reference Range]: 1 2 3 Hgb A1C [<=5.6 %] 5.9 % *HI* (10/29/14 4:50 AM) PARATHYROID PROFILE Most recent to oldest 1 2 3 [Reference Range]: Ca Ion WB [1.05-1.25 mMol/L] 1.17 mMol/L 1.04 mMol/L 1.0 4 mMol/L (11/04/14 5:07 AM) *LOW* *LOW* (11/03/14 5:49 AM) (11/02/14 3:12 AM) Ca Norm WB [1.05-1.25 1.13 mMol/L 1.05 mMol/L 1.07 mMol/ L mMol/L] (11/04/14 5:07 AM) (11/03/14 5:49 AM) (11/02/14 3:1 2 AM) TOXICOLOGY Most recent to oldest [Reference Range]: 1 2 3 Vanco Tr TND 2AM 5 AM *NA* *NA* (11/01/14 1:16 AM) (10/30/14 4:52 AM) Vanco Tr 16.7 ug/ml 7 8.9 ug/ml 8 *NA* *NA* (11/01/14 1:16 AM) (10/30/14 4:52 AM) 7Interpretive Data: Therapeutic Range: Trough: 10 - 20 ug/mL Peak: 20 - 40 ug/mL Potential Toxicity: >80 ug/[id number] Data: Therapeutic Range: Trough: 10 - 20 ug/mL Peak: 20 - 40 ug/mL Potential Toxicity: >80 ug/mLURINE AND STOOL Most recent to oldest [Reference Range]: 1 2 3 UA Turbidity [Clear] Clear (10/28/14 8:15 PM) UA Color [Yellow] Yellow *NA* (10/28/14 8:15 PM) UA pH [5.0-8.0] 6.5 (10/28/14 8:15 PM) UA Spec Grav [<=1.030] 1.010 (10/28/14 8:15 PM) UA Glucose [Negative] Negative (10/28/14 8:15 PM) UA Blood [Negative] Negative (10/28/14 8:15 PM) UA Ketones [Negative] Negative *NA* (10/28/14 8:15 PM) UA Protein [Negative] Trace *ABN* (10/28/14 8:15 PM) UA Urobilinogen [0.1-1.0 EU/dL] 1.0 EU/dL (10/28/14 8:15 PM) UA Bili [Negative] Negative *NA* (10/28/14 8:15 PM) UA Leuk Est [Negative] Negative (10/28/14 8:15 PM) UA Nitrite [Negative] Negative (10/28/14 8:15 PM) UA WBC [None Seen /HPF] 0-2 /HPF (10/28/14 8:15 PM) UA RBC [0-2] None Seen (10/28/14 8:15 PM) UA Bacteria [None Seen] None Seen (10/28/14 8:15 PM) UA Sq Epi [Few /LPF] Occasional /LPF (10/28/14 8:15 PM) UA Hyal Cast [0-2] 3-5 (10/28/14 8:15 PM) UA Mucus [None Seen /LPF] Rare /LPF (10/28/14 8:15 PM) HEMATOLOGY Most recent to oldest 1 2 3 [Reference Range]: WBC [3.7-10.4 K/CMM] 8.3 K/CMM 9.3 K/CMM 7.0 K/CMM (11/08/14 12:55 AM) (11/07/14 12:06 AM) (11/06/14 5 :39 AM) RBC [4.70-6.10 M/CMM] 3.12 M/CMM 3.26 M/CMM 3.46 M/CMM *LOW* *LOW* *LOW* (11/08/14 12:55 AM) (11/07/14 12:06 AM) (11/06/14 5 :39 AM) Hgb [14.0-18.0 g/dL] 8.6 g/dL 9.1 g/dL 9.5 g/dL *LOW* *LOW* *LOW* (11/08/14 12:55 AM) (11/07/14 12:06 AM) (11/06/14 5 :39 AM) Hct [42.0-54.0 %] 27.2 % 28.4 % 29.9 % *LOW* *LOW* *LOW* (11/08/14 12:55 AM) (11/07/14 12:06 AM) (11/06/14 5 :39 AM) MCV [80.0-94.0 fL] 87.2 fL 86.9 fL 86.4 fL (11/08/14 12:55 AM) (11/07/14 12:06 AM) (11/06/14 5 :39 AM) MCH [27.0-31.0 pg] 27.7 pg 27.8 pg 27.4 pg (11/08/14:55 AM) (11/07/14 12:06 AM) (11/06/14 5 :39 AM) MCHC [32.0-36.0 g/dL] 31.7 g/dL 32.0 g/dL 31.7 g/dL *LOW* (11/07/14 12:06 AM) *LOW* (11/08/14:55 AM) (11/06/14:39 AM) RDW [11.5-14.5 %] 18.4 % 17.7 % 17.5 % *HI* *HI* *HI* (11/08/14:55 AM) (11/07/14 12:06 AM) (11/06/14 :39 AM) Platelet [133-450 K/CMM] 456 K/CMM 504 K/CMM 507 K/C MM *HI* *HI* *HI* (11/08/14:55 AM) (11/07/14 12:06 AM) (11/06/14 5 :39 AM) MPV [7.4-10.4 fL] 6.9 fL 6.9 fL 6.6 fL *LOW* *LOW* *LOW* (11/08/14:55 AM) (11/07/14 12:06 AM) (11/06/14 :39 AM) Segs [45.0-75.0 %] 62.3 % 57.3 % 59.5 % (11/08/14:55 AM) (11/07/14 12:06 AM) (11/06/14 :39 AM) Lymphocytes [20.0-40.0 %] 23.3 % 28.6 % 26.1 % (11/08/14 12:55 AM) (11/07/14 12:06 AM) (11/06/14 5 :39 AM) Monocytes [2.0-12.0 %] 10.4 % 10.5 % 10.3 % (11/08/14 12:55 AM) (11/07/14 12:06 AM) (11/06/14 5 :39 AM) Eosinophils [0.0-4.0 %] 3.3 % 3.1 % 3.4 % (11/08/14 12:55 AM) (11/07/14 12:06 AM) (11/06/14 5 :39 AM) Basophils [0.0-1.0 %] 0.7 % 0.5 % 0.7 % (11/08/14 12:55 AM) (11/07/14 12:06 AM) (11/06/14 5 :39 AM) Segs-Bands # [1.5-8.1 5.1 K/CMM 5.3 K/CMM 4.1 K/CMM K/CMM] (11/08/14 12:55 AM) (11/07/14 12:06 AM) (11/06/14 5 :39 AM) Lymphocytes # [1.0-5.5 1.9 K/CMM 2.7 K/CMM 1.8 K/CMM K/CMM] (11/08/14 12:55 AM) (11/07/14 12:06 AM) (11/06/14 5 :39 AM) Monocytes # [0.0-0.8 K/CMM] 0.9 K/CMM 1.0 K/CMM 0.7 K/CMM *HI* *HI* (11/06/14 5:39 AM ) (11/08/14 12:55 AM) (11/07/14 12:06 AM) Eosinophils # [0.0-0.5 0.3 K/CMM 0.3 K/CMM 0.2 K/CMM K/CMM] (11/08/14 12:55 AM) (11/07/14 12:06 AM) (11/06/14 5 :39 AM) Basophils # [0.0-0.2 K/CMM] 0.1 K/CMM 0.1 K/CMM 0.1 K/CMM (11/08/14 12:55 AM) (11/07/14 12:06 AM) (11/05/14 5 :08 AM) Rapid TEG Sample Type Citrated Whole Blood *NA* (10/29/14 12:42 AM) ACT (TEG) [86-118 seconds] 113 seconds (10/29/14 12:42 AM) Split Point 0.5 minutes *NA* (10/29/14 12:42 AM) R-time [0.4-0.7 minutes] 0.7 minutes (10/29/14 12:42 AM) K-time [0.6-2.3 minutes] 0.8 minutes (10/29/14 12:42 AM) Angle [64-80 degrees] 81 degrees *HI* (10/29/14 12:42 AM) Max Amp [52-71 mm] 77 mm *HI* (10/29/14 12:42 AM) G-value [5.0-11.6 K d/sc] 16.6 K d/sc *HI* (10/29/14 12:42 AM) Estimated % Lysis [0.0-7.5 0.0 % %] (10/29/14 12:42 AM) Immunizations Vaccine Date Refusal Reason pneumococcal 23-valent vaccine 09/20/14 Procedures Procedure Date Related Diagnosis Body Site Fusion of lumbar spine Knee replacement Social History Social History Type Response Smoking Status Never smoker; Exposure to To bacco Smoke None; Cigarette Smoking Last 365 Days No; Reg Smokin g Cessation Counseling No Assessment and Plan Extracted from: Title: Clinical Document Author: Angelia Toth NP Date: Trauma Surgery IMU/Floor Progress Note: Today's Date: 11/09/2014 Chief Complaint: " When am I leaving? Overnight Events: [facility] Operations: 11/02/14 20:14 LEFT CHEST WOUND WASHOUT WITH WOUND VAC REPLACEMENT [id number] Primary Surgeon: Chad Hartman MD (Service: GEN) 10/31/14 08:15 LEFT CHEST WALL WASH OUT, DEBRIDEMENT, AND WOUND VAC EXCHANGE [id number] Primary Surgeon: Jones Saul MD (Service: GEN) (no date) LEFT CHEST WALL WASH OUT, POSS IBLE DEBRIDEMENT, POSSIBLE WOUND VAC EXCHANGE [id number] (primary surgeon unspec ified) 10/28/14 22:40 Complex Incision and Drai nage of Left Lateral-Posterior Chest Wall Thoracotomy Wound with Evacuation of Infected Hematoma and Debridement of Necrotic Tissue. Application of Wound Vac. [id number] Primary Surgeon: Jones Saul MD (Service: GEN) Daily Events: 10/14: Ctx#2 placed to WS 10/15: CT#1 placed to WS. Pt ambulated. 10/16: CTx #2 removed. Transfered to the wes 10/17: removed last CTx 10/19: post-pull CXR stable. Pt discharg ed to home with . 10/28 readmit, ID of left chest hta 10/31: wound cultures grew yeast as well. Micfungin added 11/01: cultures finalized, ABX changed to ancef, continue micafungin for now; to OR in AM for I&D 11/02: to OR with trauma for I&D, 11/05: bedside WVE. wound is [id number] 11/07: wound packing changed to 3 chest t ube sites; WVE tomorrow, awaiting home health 11/08: WVE today, appears well healing; a waiting [place] approval and home health coordination, likely [place] 11/09 or 11/10 with RN on 11/11 11/09: Approved for Home Health [place] RX. Patient has received equipment for home. Last WVE was 11/10. Home Health RN will start home WVE on 11/11. Nursing to change out canister/tubing now and patient w ill be discharged today. F/U with PCP t omorrow and Trauma on 11/18/14 Physical Examination/Findings: Vitals Tmax 98.3 Tcurrent 98.1 BP 126/88 HR 95 RR 18 O2 98% Pain 5 Location chest Constitutional/Neuro/Psych: GCS: Eye 4 Verbal 5 Mot or: 6 Total: 15 Sensation: gross sensory intact Judgement: appropriate Orientation: AAOX3 Memory/mood: WNL Medications: 10/29/14 acetaminophen-hydrocodone (Norc o 7.5/325 oral tablet) 1 tab PO Q6H 10/29/14 gabapentin (gabapentin 600 mg o ral tablet) 600 mg PO Q8H 10/29/14 tramadol 100 mg PO Q8H PRN 10/31/14 acetaminophen-hydrocodone (Norc o 7.5/325 oral tablet) 1 tab PO Q4H x1 HEENT: Eyes: EOMs intact, no foreign bodies Conjuctiva and Eye lids: clear, intact. Pupils: PERRLA Ears and Nose: Gross hearing intact; nos e non-tender, nares patent Lips and Teeth: No lesions, dentition in tact Neck: supple, non-tender Cardiovascular: Cardiac examination: intermittent tachyc ardic regular rate and normal rhythm. Extremity Edema: no edema Pulse exam: LUE 2+ RUE 2+ LLE 2+ RLE 2+ Medications: 10/29/14 aspirin 81 mg CHEW Daily 10/28/14 atorvastatin 20 mg PO Bedtime 10/29/14 ramipril (Altace) 10 mg PO Gerardo y 10/28/14 metoprolol (metoprolol tartrate ) 25 mg PO Q12H Pulmonary: Chest examination: Lungs CTAB, unlabored breathing, chest non-tender, WVAC in place with good suction. Just inferior to WVAC are 3 small incisions with packing, packing changed WVAC (10). Sealed at 125mgHg IS: 1750/1200goal GI/Nutrition: Abdominal exam: No tenderness, masses, o r hernias; + flatus Last BM: 11/08 Type of Diet: Oral, Regular, boost gluco se control TID Medications: 10/29/14 ferrous sulfate 325 mg PO Daily 10/29/14 docusate (Colace 100 mg oral ca psule) 100 mg PO BID 10/29/14 polyethylene glycol 3350 (David ax) 17 gm PO Daily 11/03/14 magnesium oxide (Mag-Ox 400) 40 0 mg PO Daily 11/03/14 potassium phosphate-sodium phos phate (Neutra-Phos) 1 pkt PO TID Genitourinary: No labs IVF: SLIVF 24 Hour Ins/Outs: 1550/x7 count UOP 7 count No billie Infectious Disease/Hematology: 24 Hr Tmax: 98.3 No lab ABX: none completed course DVT prophylaxis: 10/28/14 enoxaparin 30 mg SUB-Q [id number] Cultures: 10/28 body fluid: staph aureus, rare lauar Endocrine: Glucose range: 187-318 24 Hour SSI Insulin requirements: 10 Uni ts Reg 10/29/14 insulin glargine (Lantus) 40 un it SUB-Q Daily Musculoskeletal/Skin: Activity: ambulate Weightbearing status: WBAT Skin/wound examination: incisions c/d/I WVAC with good seal and SS output no surrounding erythema. Dressings inferior to WVAC changed with minimal SS saturation. Extremity examination: intact Disposition: Home PT/OT Plan: N/A CM Plan: D/C home with home health for W VE SW Plan: N/A Assessment and Plan: 64 yoM brought in by as a transfer from OSH level s/p NURSING HOME on 09/19/16 and discharge on 10/10. The patient presented to OSH with c/o worsening chest /shoulder pain and fevers. CT chest revealed an enlarg ing empyema. Labs showed Hb 5.9 for wh ich he is recieving 1u PRBC for (DC hgb 6.4), Cr 0.9, BE 1, LA: 1.0 Injuries: Consults/Plans: 1. infected L chest HTA 1. s/p L I&D, [place] placement Additionally will Tachycardia: intermittent, continue meto prolol Acute pain: Continue MMP for pain contro l. Continue current regimen L chest wall infection: last bedside WVE 11/08. Next will be 11/11 at home by Home Health Anemia: stable Addendum by Angelia Toth [employer] on Prior to discharge this afternon, we were called to see patient after a fall. Patient reports [place] [facility] [place] holding a sandwhich which he dropped. He slipped and fell on right but 11/09/2014 16:53 tock. Did not hit head, no LOC. Exam: Patient looks fine, No tenderness over R hip, buttock of low b ack. Has full painless PROM of hip. Will get R hip series now and will discharge if XRs normal. LINDSEY Isaac #[id number] Extracted from: Title: brief operative note Author: Giesla Phoenix DO Date : 11/02/14 date of procedure: 11/02/14 preop dx: infected left chest wound postop dx: same well granualating wound procedure: washout of left chest wound WVE surgeon: Devan surgical services assistant: marcell ebl: minimal counts: correct complications: none apparent plan: back to or on 11/05/14 for wve Extracted from: Title: ORS Trauma Author: David Chan MD Date: 10/28/14 ORS Trauma Consult History and Physical Reason for Consult: Concern for air in L glenohumeral joint Source of Consult: ED Date of Service: 10/28/2014 Consulting Physician: Dr. One[facility] Attending: Dr. Jackson CC: "my chest hurts" HPI: 64 M who was admitted on 09/15/2014 s /p NURSING HOME with a pneumothorax and L scapula fx. He underwent a thoracotomy during that admission and was eventually discharged on 10/10/2014. on 10/24/14, he started h aving fevers and presented to the ED tod ay. He was evaluated and there was a [...] fever/chills/night sweats. HEENT: Denies vision change, sore throat , ulcers in mouth, epistaxis Resp: Denies SOB, wheezing, cough GI: Denies Abd pain, Vomiting diarrhea, Constipation. : Denies urinary retention, urgency, b urning, discharge. Back/Spine: Denies pain. Neuro: Denies numbness, tingling, headac hes. Integumentary: Denies open wounds, rashe s, toth. Endocrine: Denies recent weight changes, heat/cold insensitivity. Psych: Denies depression, anxiety, labil e mood, suicidal/homicidal ideation. Musculoskeletal: Denies all but HPI. All [...] MSK: Pelvis: NTTP to stress, bilat. Neg Colla pse. Neg. open wounds/punctures. RUE: Inspection/palpation: Neg. deformity, NT TP. Neg open wounds/punctures. Sensation: sensation intact to light sonu ch m/r/u n Motor: intact AIN/PIN/Ulnar in hand; 5/5 intact Wrist flex/ext; Elbow flex/ext; Shoulder ABd,Flex Vascular: 2+ radial pulse palpated, BCR all fingers <2 sec. LUE: Inspection: TTP around scapula. NT over shoulder. Neg. deformity. Neg open wounds/punctures. Sensation: sensation intact to light sonu ch m/r/u n Motor: intact AIN/PIN/Ulnar in hand; 5/5 Wrist flex/ext; Elbow flex/ext; 4/5 Shoulder ABd,Flex . No pain with active forward elevation to 135degrees or abduction to 60degrees, PROM without shoulder discomfort, only scapular discomfort Vascular: 2+ radial pulse palpated, BCR all fingers <2 sec. RLE: Inspection: Neg. deformity, NTTP. Neg o pen wounds/punctures. Sensation: SILT DP, SP, Tib, Oswaldo, Saph Motor: Wiggles all toes, 5/5 EHL/FHL, TA , GS, Quad, Ham, IP Vascular: 2+ DP/PT, all toes BCR <2 sec LLE: Inspection: Neg. deformity, NTTP. Neg op en wounds/punctures. Sensation: SILT DP, SP, Tib, Oswaldo, Saph Motor: Wiggles all toes, 5/5 EHL/FHL, TA , GS, Quad, Ham, IP Vascular: 2+ DP/PT, [...] subcutaneous air is resolving air from intial injury - General surgery will do bedside I&D of fluid collection and will take to OR if it becomes necessary. - Weight bearing status: [place] g for comfort - Pain control - Dispo: will continue to follow David Chan MD Orthopedic Surgery PGY-1 ORS PGY2 Addendum: Agree w/above. 64 M w/previous L scapular fx s/p NURSING HOME no w here w/L thoracotomy site chest wall abscess L thoracotomy incision erythematous w/so me serosanguinous drainage. No evidence of warmth/erythema around th e shoulder LUE 2+ radial pulse, SILT m/r/u 5/5 AIN/PIN/uln, wrist/elbow flex/ext, 4 /5 shoulder flex/abd AROM FF from 0-135degrees and Abd from 0 -60degrees PROM full with only scapular discomfort Imaging shows no evidence of glenohumera l involvment Air appears dorsal to scapula Trauma will perform bedside I&D, Abx per primary Continue N[place] ABARCA for comfort Will follow while in house. Renny Campbell, PGY2 I, Chad Jackson, have examined the patient and agree with the above assessment and plan on 10/30/2014. No concern for intraarticular extension from physical exam and reviewing imaging.
--- OUTSIDE RECORDS SUMMARY | 2019-11-03 22:29 | XMS REPORT | Summary of Care ---
:1950 Author Encounter [facility]quan(CAILIN) [id number] Date(s): 10/12/14 - 10/19/14 [facility] [address] [facility] provided by [facility] [place] [address]- Discharge Disposition: Home Physician Attending: Michael Ogluin DO Physician Admitting: Michael Olguin DO Physician_Referring: Trev Alvarez MD Vital Signs Most recent to oldest 1 2 3 [Reference Range]: Height 190.5 cm 190.5 cm (10/14/14 9:04 AM) (10/12/14 11:59 PM) Temperature Oral [96.4-99.1 99.4 DegF 97.8 DegF 98.0 DegF DegF] *HI* (10/19/14 1:25 PM) (10/19/14 7:49 AM ) (10/19/14 5:27 PM) Blood Pressure [90-140/60-90 144/91 mmHg 150/91 mmHg 145 /92 mmHg mmHg] *HI* *HI* *HI* (10/19/14 5:27 PM) (10/19/14 1:25 PM) (10/19/14 7:49 A M) Respiratory Rate [14-20 BRMIN] 18 BRMIN 18 BRMIN 2 0 BRMIN (10/19/14 5:27 PM) (10/19/14 1:25 PM) (10/19/14 7:49 A M) Peripheral Pulse Rate [60-100 98 bpm 87 bpm 93 bpm bpm] (10/19/14 5:27 PM) (10/19/14 1:25 PM) (10/19/14 7:49 A M) Weight 86.364 kg 86.364 kg (10/14/14 9:04 AM) (10/12/14 11:59 PM) Body Mass Index 23.8 m2 (10/12/14 11:59 PM) Problem List Condition Effective Dates Status Health Status Informant DM (diabetes mellitus)(Confirmed) Resolved HTN (hypertension)(Confirmed) Resolved Allergies, Adverse Reactions, Alerts Substance Reaction Severity Status NKDA Active Medications Altace 10 mg, 2 cap, Route: PO, Drug form: CAP, Daily, Start date: 10/13/14 9:00:00, Duration: 30 day, Stopdate: 11/11/14 9:00:00 Notes: (Same as:Altace) Start Date: 10/13/14 Stop Date: 10/19/14 Status: DiscontinuedAncef + Sodium Chloride 0.9% IV 100 mL 2 gm, Route: IVPB, Drug form: INJ, [id number], Dosing Weight 86.364, kg, Start date: 10/17/14 20:00:00, Duration: 30 day, Stop date: 11/16/14 12:00:00 Notes: (Same As: Patria Gill)Cefazolin FOR IV SET ONLY MEDICATION WASTE Product Size:1000 mgProduct Wasted: ___ mg Start Date: 10/17/14 Stop Date: 10/18/14 Status: Discontinuedatorvastatin 20 mg, 1 tab, Route: PO, Drug form: TAB, Bedtime, Dosing Weight 86.364, kg, Start date: 10/13/14 21:00:00, Duration: 30 day, Stop date: 11/11/14 21:00:00 Notes: (Same As: Lipitor) Start Date: 10/13/14 Stop Date: 10/19/14 Status: Discontinuedbupivacaine liposome 20 mL, Route: InFILtration(local), Drug Form: INJ, ONCE, Start date: 10/13/14 9:10:00, Stop date: 10/13/14 9:10:00 Notes: (Same as: Exparel) NOT FOR IV [...] = 30 mL [266 mg]) Start Date: 10/13/14 Stop Date: 10/13/14 Status: Completedcefepime 1 gm, Route: IVPB, Drug form: INJ, [id number], Dosing Weight 86.364, kg, Priority: STAT, Start date: 10/13/14 4:34:00, Duration: 30 day, Stop date: 11/11/14 16:34:00 Notes: (Same As: Maxipime) MEDICATION WASTE Product Size: 1000 mgProduct Wasted: ___ mg Start Date: 10/13/14 Stop Date: 10/13/14 Status: Discontinuedcelecoxib 200 mg, 2 cap, Route: PO, Drug form: CAP, BID, Dosing Weight 86.364, kg, Start date: 10/16/14 17:00:00, Duration: 30 day, Stop date: 11/15/14 9:00:00 Notes: NSAID. Please check indication. Not for seizure. (Same As: CeleBREX) Start Date: 10/16/14 Stop Date: 10/19/14 Status: Discontinuedcephalexin 500 mg oral capsule 500 mg = 1 cap, PO, QID, take for the next 5 days, # 20 caplet, 0 Refill(s) Special Instructions: take for the next 5 days Start Date: 10/19/14 Stop Date: 10/24/14 Status: OrderedColace 100 mg oral capsule 100 mg, 1 cap, Route: PO, Drug form: CAP, BID, Dosing Weight 86.364, kg, Start date: 10/13/14 9:00:00, Duration: 30 day, Stop date: 11/11/14 17:00:00 Notes: (Same as: Colace) (Do Not Crush) Start Date: 10/13/14 Stop Date: 10/19/14 Status: DiscontinuedDextrose 50% Syringe 25 gm, 50 mL, Route: IVP, Drug Form: INJ, Dosing Weight 86.364, kg, PRN, PRN Blood Glucose Results, Start date: 10/17/14 14:49:00, Duration: 30 day, Stop date: 11/16/14 14:48:00 Start Date: 10/17/14 Stop Date: 10/19/14 Status: DiscontinuedDextrose 50% Syringe 12.5 gm, 25 mL, Route: IVP, Drug Form: INJ, Dosing Weight 86.364, kg, PRN, PRN Blood Glucose Results, Start date: 10/17/14 14:49:00, Duration: 30 day, Stop date: 11/16/14 14:48:00 Start Date: 10/17/14 Stop Date: 10/19/14 Status: DiscontinuedDextrose 50% Syringe 12.5 gm, 25 mL, Route: IVP, Drug Form: INJ, Dosing Weight 86.364, kg, PRN, PRN Blood Glucose Results, Start date: 10/13/14 5:21:00, Duration: 30 day, Stop date: 11/12/14 5:20:00 Start Date: 10/13/14 Stop Date: 10/17/14 Status: DiscontinuedDextrose 50% Syringe 25 gm, 50 mL, Route: IVP, Drug Form: INJ, Dosing Weight 86.364, kg, PRN, PRN Blood Glucose Results, Start date: 10/13/14 5:21:00, Duration: 30 day, Stop date: 11/12/14 5:20:00 Start Date: 10/13/14 Stop Date: 10/17/14 Status: DiscontinuedDilaudid 0.2 mg, 0.1 mL, Route: IV, Drug form: INJ, ONCE, Dosing Weight 86.364, kg, Priority: STAT, Start date: 10/15/14 15:18:00, Stop date: 10/15/14 15:18:00 Notes: Same as: Dilaudid Start Date: 10/15/14 Stop Date: 10/15/14 Status: CompletedDilaudid 0.5 mg, 0.25 mL, Route: IVP, Drug form: INJ, ONCE, Dosing Weight 86.364, kg, Priority: STAT, Start date: 10/15/14 18:15:00, Stop date: 10/15/14 18:15:00 Notes: Same as: Dilaudid Start Date: 10/15/14 Stop Date: 10/15/14 Status: CompletedDilaudid 1 mg, 0.5 mL, Route: IVP, Drug form: INJ, ONCE, Dosing Weight 86.364, kg, Priority: STAT, Start date: 10/13/14 4:27:00, Stop date: 10/13/14 4:27:00 Notes: Same as: Dilaudid Start Date: 10/13/14 Stop Date: 10/13/14 Status: CompletedDilaudid 1 mg, 0.5 mL, Route: IVP, Drug form: INJ, ONCE, Dosing Weight 86.364, kg, Priority: STAT, Start date: 10/13/14 1:36:00, Stop date: 10/13/14 1:36:00 Notes: Same as: Dilaudid Start Date: 10/13/14 Stop Date: 10/13/14 Status: Completedenoxaparin 30 mg, 0.3 mL, Route: SUB-Q, Drug form: INJ, [id number], Dosing Weight 86.364, kg, Start date: 10/13/14 5:00:00, Duration: 30 day, Stop date: 11/11/14 17:00:00 Notes: (Same as: Lovenox) Start Date: 10/13/14 Stop Date: 10/19/14 Status: Discontinuedferrous sulfate 325 mg, 1 tab, Route: PO, Drug form: ECTAB, TID, Dosing Weight 86.364, kg, Start date: 10/13/14 9:00:00, Duration: 30 day, Stop date: 11/11/14 17:00:00 Notes: Give with food. "Do Not Crush" Start Date: 10/13/14 Stop Date: 10/19/14 Status: Discontinuedflumazenil 0.2 mg, 2 mL, Route: IVP, Drug form: INJ, PRN, Dosing Weight 86.364, kg, PRN Benzodiazepine Reversal, Initial dose, Start date: 10/13/14 8:34:00, Duration: 5 doses or times, Stop date: 10/14/14 0:00:00 Notes: (Same as: Romazicon) Start Date: 10/13/14 Stop Date: 10/13/14 Status: Discontinuedgabapentin 300 mg oral capsule 600 mg, 2 cap, Route: PO, Drug form: CAP, Q8H, Dosing Weight 86.364, kg, Start date: 10/13/14 8:00:00, Duration: 30 day, Stop date: 11/12/14 0:00:00 Notes: (Same as: Neurontin) Start Date: 10/13/14 Stop Date: 10/19/14 Status: Discontinuedglucagon 1 mg, Route: IM, Drug form: PDR/INJ, PRN, Dosing Weight 86.364, kg, PRN Blood Glucose Results, Startdate: 10/17/14 14:49:00, Duration: 30 day, Stop date: 11/16/14 14:48:00 Start Date: 10/17/14 Stop Date: 10/19/14 Status: Discontinuedglucagon 1 mg, Route: IM, Drug form: PDR/INJ, PRN, Dosing Weight 86.364, kg, PRN Blood Glucose Results, Startdate: 10/13/14 5:21:00, Duration: 30 day, Stop date: 11/12/14 5:20:00 Start Date: 10/13/14 Stop Date: 10/17/14 Status: DiscontinuedhydrALAZINE 10 mg, 0.5 mL, Route: IVP, Drug form: INJ, Q20Min, Dosing Weight 86.364, kg, PRN Elevated BP, Start date: 10/13/14 8:34:00, Duration: 2 doses or times, Stop date: 10/14/14 0:00:00 Notes: (Same as: Apresoline)Push over 5 minutes Start Date: 10/13/14 Stop Date: 10/13/14 Status: Discontinuedhydromorphone 0.5 mg, 0.25 mL, Route: IVP, Drug form: INJ, Q5Min, Dosing Weight 86.364, kg, PRN Pain Score 7-10, Start date: 10/13/14 8:34:00, Duration: 6 doses or times, Stop date: 10/14/14 0:00:00 Notes: Same as: Dilaudid Start Date: 10/13/14 Stop Date: 10/13/14 Status: Discontinuedinsulin aspart 4 unit, 0.04 mL, Route: SUB-Q, Drug form: SOLN, TID-Before Meals, Dosing Weight 86.364, kg, PRN Blood Glucose Results, Start date: 10/17/14 14:49:00, Duration: 30 day, Stop date: 11/16/14 14:48:00 Notes: Roll in palms of hands gently; Do not shake vigorously. (Same as: NovoLOG)"single patient use only" Stable for 28 days at room temperature.Expires in days from Date Start Date: 10/17/14 Stop Date: 10/19/14 Status: Discontinuedinsulin aspart 10 unit, 0.1 mL, Route: SUB-Q, Drug form: SOLN, TID-Before Meals, Dosing Weight 86.364, kg, PRN Blood Glucose Results, Start date: 10/17/14 14:49:00, Duration: 30 day, Stop date: 11/16/14 14:48:00 Notes: Roll in palms of hands gently; Do not shake vigorously. (Same as: NovoLOG)"single patient use only" Stable for 28 days at room temperature.Expires in days from Date Start Date: 10/17/14 Stop Date: 10/19/14 Status: Discontinuedinsulin aspart 8 unit, 0.08 mL, Route: SUB-Q, Drug form: SOLN, TID-Before Meals, Dosing Weight 86.364, kg, PRN Blood Glucose Results, Start date: 10/17/14 14:49:00, Duration: 30 day, Stop date: 11/16/14 14:48:00 Notes: Roll in palms of hands gently; Do not shake vigorously. (Same as: NovoLOG)"single patient use only" Stable for 28 days at room temperature.Expires in days from Date Start Date: 10/17/14 Stop Date: 10/19/14 Status: Discontinuedinsulin aspart 6 unit, 0.06 mL, Route: SUB-Q, Drug form: SOLN, TID-Before Meals, Dosing Weight 86.364, kg, PRN Blood Glucose Results, Start date: 10/17/14 14:49:00, Duration: 30 day, Stop date: 11/16/14 14:48:00 Notes: Roll in palms of hands gently; Do not shake vigorously. (Same as: NovoLOG)"single patient use only" Stable for 28 days at room temperature.Expires in days from Date Start Date: 10/17/14 Stop Date: 10/19/14 Status: Discontinuedinsulin aspart 2 unit, 0.02 mL, Route: SUB-Q, Drug form: SOLN, TID-Before Meals, Dosing Weight 86.364, kg, PRN Blood Glucose Results, Start date: 10/17/14 14:49:00, Duration: 30 day, Stop date: 11/16/14 14:48:00 Notes: . (Same as: NovoLOG)"single patient use only" Stable for 28 days at room temperature.Expiresin days from Date Start Date: 10/17/14 Stop Date: 10/19/14 Status: Discontinuedinsulin aspart 8 unit, 0.08 mL, Route: SUB-Q, Drug form: SOLN, Sliding Scale, Dosing Weight 86.364, kg, PRN Blood Glucose Results, Start date: 10/13/14 5:21:00, Duration: 30 day, Stop date: 11/12/14 5:20:00 Notes: Roll in palms of hands gently; Do not shake vigorously. (Same as: NovoLOG)"single patient use only" Stable for 28 days at room temperature.Expires in days from Date Start Date: 10/13/14 Stop Date: 10/17/14 Status: Discontinuedinsulin aspart 6 unit, 0.06 mL, Route: SUB-Q, Drug form: SOLN, Sliding Scale, Dosing Weight 86.364, kg, PRN Blood Glucose Results, Start date: 10/13/14 5:21:00, Duration: 30 day, Stop date: 11/12/14 5:20:00 Notes: Roll in palms of hands gently; Do not shake vigorously. (Same as: NovoLOG)"single patient use only" Stable for 28 days at room temperature.Expires in days from Date Start Date: 10/13/14 Stop Date: 10/17/14 Status: Discontinuedinsulin aspart 10 unit, 0.1 mL, Route: SUB-Q, Drug form: SOLN, Sliding Scale, Dosing Weight 86.364, kg, PRN Blood Glucose Results, Start date: 10/13/14 5:21:00, Duration: 30 day, Stop date: 11/12/14 5:20:00 Notes: Roll in palms of hands gently; Do not shake vigorously. (Same as: NovoLOG)"single patient use only" Stable for 28 days at room temperature.Expires in days from Date Start Date: 10/13/14 Stop Date: 10/17/14 Status: Discontinuedinsulin aspart 2 unit, 0.02 mL, Route: SUB-Q, Drug form: SOLN, Sliding Scale, Dosing Weight 86.364, kg, PRN Blood Glucose Results, Start date: 10/13/14 5:21:00, Duration: 30 day, Stop date: 11/12/14 5:20:00 Notes: Roll in palms of hands gently; Do not shake vigorously. (Same as: NovoLOG)"single patient use only" Stable for 28 days at room temperature.Expires in days from Date Start Date: 10/13/14 Stop Date: 10/17/14 Status: Discontinuedinsulin aspart 4 unit, 0.04 mL, Route: SUB-Q, Drug form: SOLN, Sliding Scale, Dosing Weight 86.364, kg, PRN Blood Glucose Results, Start date: 10/13/14 5:21:00, Duration: 30 day, Stop date: 11/12/14 5:20:00 Notes: Roll in palms of hands gently; Do not shake vigorously. (Same as: NovoLOG)"single patient use only" Stable for 28 days at room temperature.Expires in days from Date Start Date: 10/13/14 Stop Date: 10/17/14 Status: Discontinuedinsulin glargine 40 unit, 0.4 mL, Route: SUB-Q, Drug form: INJ, QAM, Dosing Weight 86.364, kg, Priority: NOW, Start date: 10/15/14 10:38:00, Duration: 30 day, Stop date: 11/14/14 9:00:00 Notes: Same as Vannesa Genao not hold insulin without contacting prescriber"single patient use only" Stable for 28 days at room temperature.Expires in days from Date Start Date: 10/15/14 Stop Date: 10/19/14 Status: DiscontinuedInsulin regular 2 unit, 0.02 mL, Route: SUB-Q, Drug form: SOLN, TID-Before Meals, Dosing Weight 86.364, kg, PRN Blood Glucose Results, Start date: 10/13/14 4:33:00, Duration: 30 day, Stop date: 11/12/14 4:32:00 Notes: (Same as: Humulin R) Roll in palms of hands gently; Do not shake vigorously. "single patientuse only"(Restricted to patients requiring a dose > 60 units) Stable for 28 days at room temperatureExpires in days from Date Start Date: 10/13/14 Stop Date: 10/14/14 Status: DiscontinuedInsulin regular 4 unit, 0.04 mL, Route: SUB-Q, Drug form: SOLN, TID-Before Meals, Dosing Weight 86.364, kg, PRN Blood Glucose Results, Start date: 10/13/14 4:33:00, Duration: 30 day, Stop date: 11/12/14 4:32:00 Notes: (Same as: Humulin R) Roll in palms of hands gently; Do not shake vigorously. "single patientuse only"(Restricted to patients requiring a dose > 60 units) Stable for 28 days at room temperatureExpires in days from Date Start Date: 10/13/14 Stop Date: 10/14/14 Status: DiscontinuedInsulin regular 1 unit, 0.01 mL, Route: SUB-Q, Drug form: SOLN, TID-Before Meals, Dosing Weight 86.364, kg, PRN Blood Glucose Results, Start date: 10/13/14 4:33:00, Duration: 30 day, Stop date: 11/12/14 4:32:00 Notes: (Same as: Humulin R) Roll in palms of hands gently; Do not shake vigorously. "single patientuse only"(Restricted to patients requiring a dose > 60 units) Stable for 28 days at room temperatureExpires in days from Date Start Date: 10/13/14 Stop Date: 10/14/14 Status: DiscontinuedInsulin regular 3 unit, 0.03 mL, Route: SUB-Q, Drug form: SOLN, TID-Before Meals, Dosing Weight 86.364, kg, PRN Blood Glucose Results, Start date: 10/13/14 4:33:00, Duration: 30 day, Stop date: 11/12/14 4:32:00 Notes: (Same as: Humulin R) Roll in palms of hands gently; Do not shake vigorously. "single patientuse only"(Restricted to patients requiring a dose > 60 units) Stable for 28 days at room temperatureExpires in days from Date Start Date: 10/13/14 Stop Date: 10/14/14 Status: DiscontinuedInsulin regular 5 unit, 0.05 mL, Route: SUB-Q, Drug form: SOLN, TID-Before Meals, Dosing Weight 86.364, kg, PRN Blood Glucose Results, Start date: 10/13/14 4:33:00, Duration: 30 day, Stop date: 11/12/14 4:32:00 Notes: (Same as: Humulin R) Roll in palms of hands gently; Do not shake vigorously. "single patientuse only"(Restricted to patients requiring a dose > 60 units) Stable for 28 days at room temperatureExpires in days from Date Start Date: 10/13/14 Stop Date: 10/14/14 Status: DiscontinuedKeflex 500 mg, 1 cap, Route: PO, Drug form: CAP, ABXQ6H, Dosing Weight 86.364, kg, Start date: 10/18/14 14:00:00, Duration: 30 day, Stop date: 11/17/14 8:00:00 Notes: Take on empty stomach. (Same As: Keflex) Start Date: 10/18/14 Stop Date: 10/19/14 Status: DiscontinuedketOROLAC 15 mg/mL injectable solution 15 mg, 1 mL, Route: IV, Drug form: INJ, Q6H, Dosing Weight 86.364, kg, Start date: 10/14/14 0:00:00,Duration: 6 doses or times, Stop date: 10/15/14 6:00:00 Notes: (Same as:Toradol) IV bolus must be given >15 seconds. Give IM administration slowly and deeply into the muscle. Not for use > 4 days. Start Date: 10/14/14 Stop Date: 10/15/14 Status: CompletedketOROLAC 30 mg/mL injectable solution 30 mg, 1 mL, Route: IV, Drug form: INJ, ONCE, Dosing Weight 86.364, kg, Start date: 10/16/14 11:09:00, Duration: 1 doses or times, Stop date: 10/16/14 11:09:00 Notes: (Same as:Toradol) IV bolus must be given >15 seconds. Give IM administration slowly and deeply into the muscle.Not for use > 4 days MEDICATION WASTE Product Size: 30 mgProduct Wasted: ___ mg Start Date: 10/16/14 Stop Date: 10/16/14 Status: Completedlabetalol 10 mg, 2 mL, Route: IVP, Drug form: INJ, Q5Min, Dosing Weight 86.364, kg, PRN Elevated BP, Start date: 10/13/14 8:34:00, Duration: 5 doses or times, Stop date: 10/14/14 0:00:00 Start Date: 10/13/14 Stop Date: 10/13/14 Status: DiscontinuedMaxipime 1 gm, Route: IVPB, Drug form: INJ, ABXQ8H, Start date: 10/13/14 0:00:00, Duration: 30 day, Stop date: 11/11/14 16:00:00 Notes: (Same As: Maxipime) MEDICATION WASTE Product Size: 1000 mgProduct Wasted: _0__ mg Start Date: 10/13/14 Stop Date: 10/16/14 Status: Discontinuedmetoprolol tartrate 25 mg, 1 tab, Route: PO, Drug form: TAB, Q12H, Dosing Weight 86.364, kg, Start date: 10/15/14 21:00:00, Duration: 30 day, Stop date: 11/14/14 9:00:00 Notes: (Same as: Lopressor) Start Date: 10/15/14 Stop Date: 10/19/14 Status: Discontinuedmetoprolol tartrate 25 mg oral tablet 25 mg = 1 tab, PO, Q12H, 0 Refill(s) Start Date: 10/19/14 Status: Orderednaloxone 0.04 mg, 0.1 mL, Route: IVP, Drug form: INJ, Q2MIN, Dosing Weight 86.364, kg, PRN Narcotic Reversal,Start date: 10/13/14 8:34:00, Duration: 8 doses or times, Stop date: 10/14/14 0:00:00 Notes: (Same as: Narcan) Start Date: 10/13/14 Stop Date: 10/13/14 Status: DiscontinuedNeutra-Phos 2 pkt, Route: PO, Drug Form: PDR/REC, Dosing Weight 86.364, kg, TID-Before Meals, Start date: 10/19/14 7:30:00, Duration: 2 day, Stop date: 10/20/14 16:30:00 Notes: (Same as: Neutra-Phos) Each 1.25 gm pkt has 250mg phosphorous. Mix w/2.5oz water and stir. Start Date: 10/19/14 Stop Date: 10/19/14 Status: DiscontinuedNeutra-Phos 1 pkt, Route: PO, Drug Form: PDR/REC, Dosing Weight 86.364, kg, TID-Before Meals, NOW, Start date: 10/17/14 9:01:00, Duration: 2 day, Stop date: 10/19/14 7:30:00 Notes: (Same as: Neutra-Phos) Each 1.25 gm pkt has 250mg phosphorous. Mix w/2.5oz water and stir. Start Date: 10/17/14 Stop Date: 10/18/14 Status: DiscontinuedNorco 10/325 oral tablet 1 tab, Route: PO, Drug Form: TAB, Dosing Weight 86.364, kg, Q6H, Start date: 10/13/14 6:00:00, Duration: 30 day, Stop date: 11/12/14 0:00:00 Notes: (Same as: Malcom 325/10) Start Date: 10/13/14 Stop Date: 10/19/14 Status: DiscontinuedNorco 5/325 oral tablet 1 tab, Route: PO, Drug Form: TAB, Dosing Weight 86.364, kg, Q6H, PRN Pain Score 6-10, Start date: 10/13/14 16:27:00, Duration: 30 day, Stop date: 11/12/14 16:26:00 Notes: (Same as: Malcom 325/5) Do not exceed 4gm/day of acetaminophen. Start Date: 10/13/14 Stop Date: 10/19/14 Status: DiscontinuedNorco 5/325 oral tablet See Instructions, PRN Pain Score 6-10, 1-2 tab PO Q4-6H prn pain not to exceed 8 tablets/day, # 60 tab, 0 Refill(s) Special Instructions: 1-2 tab PO Q4-6H prn painnot to exceed 8 tablets/day Start Date: 10/19/14 Stop Date: 10/29/14 Status: OrderedNS (Bolus) IV 1,000 mL, 1,000 ml/hr, Infuse Over: 1 hr, Route: IV, 1,000, Drug form: INJ, ONCE, Priority: STAT, Dosing Weight 86.364 kg, Start date: 10/13/14 0:25:00, Duration: 1 doses or times, Stop date: 10/13/14 0:25:00 Start Date: 10/13/14 Stop Date: 10/13/14 Status: CompletedOmnipaque 350mg/ml 80 mL, Route: IVP, Drug Form: SOLN, Dosing Weight 86.364, kg, ONCALL, STAT, Start date: 10/13/14 1:46:00, Duration: 1 doses or times, Weight = 75 - 94kg -- "To be infused by Radiology Staff ONLY" Special Instructions: Weight = 75 - 94kg -- "To be infused by Radiology Staff ONLY" Start Date: 10/13/14 Stop Date: 10/13/14 Status: Completedondansetron 4 mg, 2 mL, Route: IVP, Drug form: INJ, ONCE, Dosing Weight 86.364, kg, PRN Nausea & Vomiting, Start date: 10/13/14 8:34:00 Notes: (Same as: Zofran) MEDICATION WASTE Product Size: 4 mgProduct Wasted: ___ mg Start Date: 10/13/14 Stop Date: 10/13/14 Status: Discontinuedpotassium phosphate + Sodium Chloride 0.9% IV 250 mL 45 mmol, 15 mL, Route: IVPB, ONCE, Dosing Weight 86.364, kg, Start date: 10/16/14 9:26:00, Stop date: 10/16/14 9:26:00 Notes: (Same as: K Phosphate.) 1 mMol phoshate has 1.47 mEq potassium Infuse over 4 hours Start Date: 10/16/14 Stop Date: 10/16/14 Status: Completedpromethazine 6.25 mg, 0.25 mL, Route: IVPB, Drug form: INJ, ONCE, Dosing Weight 86.364, kg, PRN Nausea & Vomiting, Start date: 10/13/14 8:34:00 Notes: Do not give IV push. (Same as: Phenergan) Start Date: 10/13/14 Stop Date: 10/13/14 Status: Discontinuedquinapril 40 mg, Route: PO, Drug form: TAB, Daily, Dosing Weight 86.364, kg, Start date: 10/13/14 9:00:00, Duration: 30 day, Stop date: 11/11/14 9:00:00 Start Date: 10/13/14 Stop Date: 10/13/14 Status: DeletedSaline Flush 0.9% 10 ml, Route: IVP, Drug Form: INJ, Dosing Weight 86.364, kg, PRN, PRN Line Flush, Start date: 10/13/14 4:33:00, Duration: 30 day, Stop date: 11/12/14 4:32:00 Notes: (Same as: BD Posiflush) Start Date: 10/13/14 Stop Date: 10/19/14 Status: Discontinuedsenna 8.6 mg oral tablet 8.6 mg, 1 tab, Route: PO, Drug Form: TAB, Dosing Weight 86.364, kg, BID, Start date: 10/14/14 17:00:00, Duration: 30 day, Stop date: 11/13/14 9:00:00 Notes: (Same as: [place]) Start Date: 10/14/14 Stop Date: 10/19/14 Status: Discontinuedsenna 8.6 mg oral tablet 8.6 mg = 1 tab, PO, BID, with plenty of water, # 36 tab, 0 Refill(s) Special Instructions: with plenty of water Start Date: 10/19/14 Stop Date: 10/29/14 Status: OrderedSodium Chloride 0.9% (titrate) 250 mL 250 mL, Rate: faculty i on call medical assistant for use with blood product administration, Dosing Weight 86.364, kg, Route: IV, Total Volume: 250, Start Date: 10/13/14 2:44:00, Duration: 1 day, Stop date: 10/14/14 2:43:00, Replace Every: 24 hr Start Date: 10/13/14 Stop Date: 10/14/14 Status: Completedtramadol 50 mg oral tablet 2 tab, Route: PO, Drug form: TAB, Q6H, Dosing Weight 86.364, kg, Start date: 10/16/14 12:00:00, Duration: 30 day, Stop date: 11/15/14 6:00:00 Start Date: 10/16/14 Stop Date: 10/16/14 Status: Canceledtramadol 50 mg oral tablet 100 mg, 2 tab, Route: PO, Drug form: TAB, Q6H, Dosing Weight 86.364, kg, Start date: 10/13/14 6:00:00, Duration: 30 day, Stop date: 11/12/14 0:00:00 Notes: (Same As: Sara) Start Date: 10/13/14 Stop Date: 10/19/14 Status: Discontinuedvancomycin 1.25 gm, 250 mL, Route: IVPB, Drug form: INJ, [id number], Start date: 10/14/14 23:00:00, Duration: 30 day, Stop date: 11/13/14 15:00:00 Notes: Same as: Vancocin-NS (premixed)Infusion rate< 1000 mg: infuse over 1 [id number] - 1500 mg: infuse over 1.5 [id number] - 2000 mg: infuse over 2 hours> 2001 mg: infuse over 2.5 hours Start Date: 10/14/14 Stop Date: 10/16/14 Status: Discontinuedvancomycin 1.5 gm, 250 mL, Route: IVPB, Drug form: INJ, ABXQ8H, Dosing Weight 86.364, kg, Start date: 10/16/14 8:00:00, Duration: 30 day, Stop date: 11/15/14 4:00:00 Notes: Same as: Vancocin-NS (premixed)Infusion rate< 1000 mg: infuse over 1 [id number] - 1500 mg: infuse over 1.5 [id number] - 2000 mg: infuse over 2 hours> 2001 mg: infuse over 2.5 hours Start Date: 10/16/14 Stop Date: 10/17/14 Status: Discontinuedvancomycin 1 gm, Route: IVPB, Drug form: INJ, [id number], Start date: 10/13/14 23:00:00, Duration: 30 day, Stop date: 11/12/14 15:00:00 Notes: (Same As: Vancocin)Infusion rate< 1000 mg: infuse over 1 [id number] - 1500 mg: infuse over 1.5 [id number] - 2000 mg: infuse over 2 hours> 2001 mg: infuse over 2.5 hours MEDICATION WASTE Product Size: 1000 mgProduct Wasted: _0__mg Start Date: 10/13/14 Stop Date: 10/14/14 Status: Discontinuedvancomycin (SCIP) 1 gm, Route: IVPB, Drug form: INJ, [id number], Dosing Weight 86.364, kg, Start date: 10/13/14 9:00:00, Duration: 1 week, Stop date: 10/19/14 21:00:00, Pharmacy to adjust dose for renal function Special Instructions: Pharmacy to adjust dose for renal function Notes: (Same As: Vancocin)Infusion rate< 1000 mg: infuse over 1 [id number] - 1500 mg: infuse over 1.5 [id number] - 2000 mg: infuse over 2 hours> 2001 mg: infuse over 2.5 hours MEDICATION WASTE Product Size: 1000 mgProduct Wasted: ___ mg Start Date: 10/13/14 Stop Date: 10/13/14 Status: Discontinued Results BLOOD BANK RESULTS Most recent to oldest [Reference Range]: 1 2 3 ABO/Rh B POS *Unknown* (10/13/14 3:30 AM) Antibody Scrn Negative (10/13/14 3:30 AM) RBC product Modification Required (10/13/14 2:44 AM) ELECTROLYTES Most recent to oldest 1 2 3 [Reference Range]: Sodium Lvl [135-145 mEq/L] 139 mEq/L 137 mEq/L 135 m Eq/L (10/18/14 5:24 AM) (10/16/14 5:12 AM) (10/15/14:31 A M) Potassium Lvl [3.5-5.1 mEq/L] 4.0 mEq/L 3.9 mEq/L 4. 2 mEq/L (10/18/14 5:24 AM) (10/16/14 5:12 AM) (10/15/14 2:31 A M) Chloride Lvl [95-109 mEq/L] 106 mEq/L 102 mEq/L 100 mEq/L (10/18/14 5:24 AM) (10/16/14 5:12 AM) (10/15/14 2:31 A M) CO2 [24-32 mEq/L] 27 mEq/L 28 mEq/L 25 mEq/L (10/18/14 5:24 AM) (10/16/14 5:12 AM) (10/15/14:31 A M) AGAP [10.0-20.0 mEq/L] 10.0 mEq/L 10.9 mEq/L 14.2 mEq/ L (10/18/14 5:24 AM) (10/16/14 5:12 AM) (10/15/14:31 A M) CHEM PANEL Most recent to oldest 1 2 3 [Reference Range]: Creatinine Lvl [0.5-1.4 0.5 mg/dL 0.6 mg/dL 0.8 mg/d L mg/dL] (10/18/14 5:24 AM) (10/16/14 5:12 AM) (10/15/14 2:31 A M) eGFR 116 mL/min/1.73m2 1 108 mL/min/1.73m2 2 96 mL/mi n/1.73m2 3 *NA* *NA* *NA* (10/18/14 5:24 AM) (10/16/14 5:12 AM) (10/15/14 2:31 A M) BUN [7-22 mg/dL] 11 mg/dL 11 mg/dL 16 mg/dL (10/18/14 5:24 AM) (10/16/14 5:12 AM) (10/15/14 2:31 A M) B/C Ratio [6-25] 16 (10/13/14 1:22 AM) Glucose Lvl [70-99 mg/dL] 82 mg/dL 4 126 mg/dL 5 229 mg /dL 6 (10/18/14 5:24 AM) *HI* *HI* (10/16/14 5:12 AM) (10/15/14 2:31 AM ) Total Protein [6.4-8.4 6.8 g/dL g/dL] (10/13/14 1:22 AM) Albumin Lvl [3.5-5.0 g/dL] 1.4 g/dL *LOW* (10/13/14 1:22 AM) Globulin [2.0-4.0 g/dL] 5.4 g/dL *HI* (10/13/14 1:22 AM) A/G Ratio [0.7-1.6] 0.3 *LOW* (10/13/14 1:22 AM) Calcium Lvl [8.5-10.5 8.1 mg/dL 7.6 mg/dL 7.8 mg/dL mg/dL] *LOW* *LOW* *LOW* (10/18/14 5:24 AM) (10/16/14 5:12 AM) (10/15/14 2:31 A M) Phosphorus [2.5-4.5 mg/dL] 2.2 mg/dL 1.7 mg/dL *LOW* *LOW* (10/18/14 5:24 AM) (10/16/14 5:12 AM) Magnesium Lvl [1.8-2.4 1.8 mg/dL 2.0 mg/dL mg/dL] (10/18/14 5:24 AM) (10/16/14 5:12 AM) ALT [0-65 unit/L] 12 unit/L (10/13/14 1:22 AM) AST [0-37 unit/L] 18 unit/L (10/13/14 1:22 AM) Alk Phos [39-136 unit/L] 101 unit/L (10/13/14 1:22 AM) Bili Total [0.2-1.3 mg/dL] 0.8 mg/dL (10/13/14 1:22 AM) Lactic Acid Lvl [0.5-2.2 1.0 mMol/L mMol/L] (10/13/14 1:22 AM) 1Result Comment: The eGFR is calculated [...] values reflect the clinical guidelines of the [place] [employer].5Interpretive Data: Adult reference range values reflect the clinical guidelines of the [place] [employer].6Interpretive Data: Adult reference range values reflect the clinical guidelines of the [place] [employer].PARATHYROID PROFILE Most recent to oldest [Reference Range]: 1 2 3 Ca Ion WB [1.05-1.25 mMol/L] 1.08 mMol/L 1.06 mMol/L (10/15/14 5:44 AM) (10/14/14 10:17 AM) Ca Norm WB [1.05-1.25 mMol/L] 1.04 mMol/L 1.03 mMol/L *LOW* *LOW* (10/15/14 5:44 AM) (10/14/14 10:17 AM) TOXICOLOGY Most recent to oldest 1 2 3 [Reference Range]: Vanco Tr TND 1200 2230 see emar *NA* *NA* *NA* (10/17/14 12:04 PM) (10/15/14 11:08 PM) (10/14/14 2:52 PM) Vanco Tr 14.8 ug/ml 7 12.6 ug/ml 8 10.0 ug/ml 9 *NA* *NA* *NA* (10/17/14 12:04 PM) (10/15/14 11:08 PM) (10/14/14 2:52 PM) 7Interpretive Data: Therapeutic Range: Trough: 10 - 20 ug/mL Peak: 20 - 40 ug/mL Potential Toxicity: >80 ug/[id number] Data: Therapeutic Range: Trough: 10 - 20 ug/mL Peak: 20 - 40 ug/mL Potential Toxicity: >80 ug/[id number] Data: Therapeutic Range: Trough: 10 - 20 ug/mL Peak: 20 - 40 ug/mL Potential Toxicity: >80 ug/mLIMMUNOLOGY Most recent to oldest [Reference Range]: 1 2 3 Prealbumin [18.0-45.0 mg/dL] 5.5 mg/dL *LOW* (10/14/14 8:20 AM) CRP, High Sensitivity >190.0 mg/L 10 (10/14/14 8:20 AM) 10Interpretive Data: Low Risk: <1.0 mg/L Average Risk: 1.0 - 3.0 mg/L High Risk: >3.0 mg/L Inflammation: >10.0 mg/LHEMATOLOGY Most recent to oldest 1 2 3 [Reference Range]: WBC [3.7-10.4 K/CMM] 6.7 K/CMM 9.4 K/CMM 12.0 K/CMM (10/18/14 5:24 AM) (10/16/14 5:12 AM) *HI* (10/15/14 2:31 AM) RBC [4.70-6.10 M/CMM] 3.22 M/CMM 3.14 M/CMM 3.13 M/CMM *LOW* *LOW* *LOW* (10/18/14 5:24 AM) (10/16/14 5:12 AM) (10/15/14 2:31 A M) Hgb [14.0-18.0 g/dL] 9.0 g/dL 9.1 g/dL 8.9 g/dL *LOW* *LOW* *LOW* (10/18/14 5:24 AM) (10/16/14 5:12 AM) (10/15/14 2:31 A M) Hct [42.0-54.0 %] 27.8 % 27.4 % 27.5 % *LOW* *LOW* *LOW* (10/18/14 5:24 AM) (10/16/14 5:12 AM) (10/15/14 2:31 A M) MCV [80.0-94.0 fL] 86.5 fL 87.5 fL 87.7 fL (10/18/14 5:24 AM) (10/16/14 5:12 AM) (10/15/14:31 A M) MCH [27.0-31.0 pg] 28.0 pg 28.9 pg 28.4 pg (10/18/14 5:24 AM) (10/16/14 5:12 AM) (10/15/14:31 A M) MCHC [32.0-36.0 g/dL] 32.4 g/dL 33.1 g/dL 32.3 g/dL (10/18/14 5:24 AM) (10/16/14 5:12 AM) (10/15/14:31 A M) RDW [11.5-14.5 %] 15.6 % 16.5 % 16.0 % *HI* *HI* *HI* (10/18/14:24 AM) (10/16/14 5:12 AM) (10/15/1431 A M) Platelet [133-450 K/CMM] 610 K/CMM 679 K/CMM 733 K/C MM *HI* *HI* *HI* (10/18/14 5:24 AM) (10/16/14 5:12 AM) (10/15/14:31 A M) MPV [7.4-10.4 fL] 6.3 fL 6.3 fL 6.4 fL *LOW* *LOW* *LOW* (10/18/14 5:24 AM) (10/16/14 5:12 AM) (10/15/14:31 A M) Segs [45.0-75.0 %] 70.5 % 82.4 % 83.5 % (10/18/14 5:24 AM) *HI* *HI* (10/16/14 5:12 AM) (10/15/14:31 AM ) Bands [0.0-11.0 %] 1.0 % (10/13/14 1:22 AM) Lymphocytes [20.0-40.0 %] 14.0 % 8.4 % 7.3 % *LOW* *LOW* *LOW* (10/18/14 5:24 AM) (10/16/14 5:12 AM) (10/15/14 2:31 A M) Atypical Lymphs [<=0.0 %] 1.0 % *HI* (10/13/14 1:22 AM) Monocytes [2.0-12.0 %] 10.3 % 6.9 % 8.0 % (10/18/14 5:24 AM) (10/16/14 5:12 AM) (10/15/14:31 A M) Eosinophils [0.0-4.0 %] 4.0 % 1.3 % 1.0 % (10/18/14 5:24 AM) (10/16/14 5:12 AM) (10/15/14 2:31 A M) Basophils [0.0-1.0 %] 1.2 % 1.0 % 0.2 % *HI* (10/16/14 5:12 AM) (10/15/14 2:31 AM ) (10/18/14 5:24 AM) Segs-Bands # [1.5-8.1 K/CMM] 4.7 K/CMM 7.8 K/CMM 10. 0 K/CMM (10/18/14 5:24 AM) (10/16/14 5:12 AM) *HI* (10/15/14 2:31 AM) Lymphocytes # [1.0-5.5 0.9 K/CMM 0.8 K/CMM 0.9 K/CMM K/CMM] *LOW* *LOW* *LOW* (10/18/14 5:24 AM) (10/16/14 5:12 AM) (10/15/14 2:31 A M) Monocytes # [0.0-0.8 K/CMM] 0.7 K/CMM 0.7 K/CMM 1.0 K/CMM (10/18/14 5:24 AM) (10/16/14 5:12 AM) *HI* (10/15/14:31 AM) Eosinophils # [0.0-0.5 0.3 K/CMM 0.1 K/CMM 0.1 K/CMM K/CMM] (10/18/14 5:24 AM) (10/16/14 5:12 AM) (10/15/14 2:31 A M) Basophils # [0.0-0.2 K/CMM] 0.1 K/CMM 0.1 K/CMM 0.4 K/CMM (10/18/14 5:24 AM) (10/16/14 5:12 AM) *HI* (10/13/14 1:22 AM ) Anisocyte [None Seen] 1+ 1+ *ABN* *ABN* (10/14/14 12:36 AM) (10/13/14 1:22 AM) Polychrom [None Seen] Moderate Moderate *ABN* *ABN* (10/14/14 12:36 AM) (10/13/14 1:22 AM) Target Cell Slight *Unknown* (10/13/14 1:22 AM) Plt Morph Normal (10/13/14 1:22 AM) Immunizations Vaccine Date Refusal Reason pneumococcal 23-valent vaccine 09/20/14 Procedures Procedure Date Related Diagnosis Body Site Fusion of lumbar spine Social History Social History Type Response Smoking Status Never smoker; Exposure to To bacco Smoke None; Cigarette Smoking Last 365 Days No; Reg Smokin g Cessation Counseling No Assessment and Plan Extracted from: Title: Clinical Document Author: Angelia Burkett NP Date: Trauma Surgery IMU/Floor Progress Note: Today's Date: 10/19/2014 Hospital Day # 6 Chief Complaint: "I am doing better" Overnight Events: none Brief History of Admission: 64 yoM brought in by as a transfer from OSH level s/p [facility] [place] on 09/19/16 and discharge on 10/10. The patient presented to OSH with c/o worsening chest /shoulder pain and fevers. CT chest revealed an enlarg ing empyema. Labs showed Hb 5.9 for wh ich he is recieving 1u PRBC for (DC hgb 6.4), Cr 0.9, BE 1, LA: 1.0 Tertiary: Performed by Dr. Velma fuentes on 09/21/2014. No additional findings. In Hospital Operations: 10/13/14: L thoracotomy, evacuation of i nfected HTA, decortication, L CTs x2 Daily Events: 10/14: Ctx#2 placed to WS 10/15: CT#1 placed to WS. Pt ambulated. 10/16: CTx #2 removed. Transfered to the f wes 10/17: removed last CTx 10/19: post-pull CXR stable. Pt discharg ed to home with . Physical Examination/Findings: Vitals Tmp(F) Tmp(C) Ttype BP MAP Pulse RR SpO2 FIO2 ETCO2 10/19 13:25 97.8 36.56 oral 150/91 --- 8 7 18 96 --- --- 10/19 07:49 98.0 36.67 oral 145/92 --- 9 3 20 100 --- --- 10/19 03:02 97.8 36.56 oral 152/94 --- 8 9 18 96 --- --- 10/19 00:10 98.3 36.83 oral 146/88 --- 9 4 18 95 --- --- 10/18 20:08 98.5 36.94 oral 159/96 --- 1 03 18 96 --- --- 24 Hr Tmax: 98.6F (37.00c) at 10/18 16:2 6 Pain 0-3 Location: L chest Constitutional/Neuro/Psych: GCS: Eye 4 Verbal 5 Mot or: 6 Total: 15 Sensation: gross sensory intact Judgement: appropriate Orientation: AAOX3 Memory/mood: WNL Medications: Scheduled Meds (13): 10/13/14 acetaminophen-hydrocodone (Norc o 10/325 oral tablet) 1 tab PO Q6H 10/13/14 gabapentin (gabapentin 300 mg o ral capsule) 600 mg PO Q8H Unscheduled Meds: None PRN Meds (10): 10/13/14 acetaminophen-hydrocodone (Norc o 5/325 oral tablet) 1 tab PO Q6H HEENT: Eyes: EOMs intact, no foreign bodies Conjuctiva and Eye lids: clear, intact. Pupils: PERRLA Ears and Nose: Gross hearing intact; nos e non-tender, nares patent Lips and Teeth: No lesions, dentition in tact Neck: supple, non-tender Cardiovascular: Cardiac examination: Regular rate and rh ythm Extremity Edema: minimal edeam LUE Pulse exam: LUE 2+ RUE 2+ LLE 2+ RLE 2+ Medications: Scheduled Meds (13): 10/13/14 atorvastatin 20 mg PO Bedtime 05/02/15 metoprolol (metoprolol tartrate ) 25 mg PO Q12H 10/13/14 ramipril (Altace) 10 mg PO Gerardo y Pulmonmary: CXR: L lung expanded, no pneumothorax, Right Chest tube #1: Water seal, 80 cc o utput over 24 hours, no air leak presentChest tubes removed Chest examination: Lungs CTAB, unlabored breathing, chest non-tender IS: 1250/1200goal GI/Nutrition: Abdominal exam: No tenderness, masses, o r hernias; + flatus Last BM: 10/19 Type of Diet: Oral, Regular, boost TID Medications: Scheduled Meds: 10/13/14 docusate (Colace 100 mg oral ca psule) 100 mg PO BID 10/14/14 senna (senna 8.6 mg oral tablet ) 8.6 mg PO BID Genitourinary: No lab IVF: N/A 24 Hour Ins/Outs: 1080/400+ voids x6 No wise Infectious Disease/Hematology: 24 Hr Tmax: 98.6F ABX: Keflex 500mg 4xd (D#2/7) DVT prophylaxis: 10/13/14 enoxaparin 30 mg SUB-Q [id number] Endocrine: Glucose range: 86-160 24 Hour Insulin requirements: 2 Units Scheduled Meds (13): 10/15/14 insulin glargine 40 unit SUB-Q QAM Unscheduled Meds: None PRN Meds (10): 10/13/14 Dextrose 50% in Water IV (Dextr ose 50% Syringe) 12.5 gm IVP PRN 10/13/14 Dextrose 50% in Water IV (Dextr ose 50% Syringe) 25 gm IVP PRN 10/13/14 glucagon 1 mg IM PRN 10/13/14 insulin aspart 2 unit SUB-Q Sli ding Scale 10/13/14 insulin aspart 4 unit SUB-Q Sli ding Scale 10/13/14 insulin aspart 6 unit SUB-Q Sli ding Scale 10/13/14 insulin aspart 8 unit SUB-Q Sli ding Scale 10/13/14 insulin aspart 10 unit SUB-Q Sl iding Scale Musculoskeletal/Skin: Activity: ambulate Weightbearing status: WBAT Skin/wound examination: intact, incision s c/d/I chelsea L chest wall Extremity examination: intact Disposition: Home PT/OT Plan: N/A CM Plan: anticipate D/C home SW Plan: N/A Assessment and Plan: 64 yoM brought in by as a transfer from OSH level s/p [facility] [place] on 09/19/16 and discharge on 10/10. The [...] VEP/IS - MSSA empyema:, WBC WNL-Keflex (staph a ureus) - Empyema- CXR stable w/ good lung expan efraín. CXR last night-no PTX, L lung goosd aeration - Hyperglycemia: cont home insulin - Sinus tachycardia - resolving, contin ue metoprolol - Malnutrition: continue regular diet wi th Boost - Hypophosphatemia -resolved - Discharge home. f/u in Trauma clinic in 7-10-days Extracted from: Title: Clinical Document Author: Velma Grider Date: 10/13/14 Preop dx: left chest empyema Postop dx: left extrapleural and intrapl eural infected hematoma Procedure: left thoracotomy, evacuation of infected hematoma, decortication, chest tube placement x2 Surgeons: Dr. Kamini Vo, Dr. Erwin Page, Dr. Lencho Grider Assistants: Dr. Erwin Page, Dr. Lencho Grider Findings: large amount of infected hemat garett between the fascial planes of the chest wall as well as underneath the scapula. Large amount of infected hematoma within the chest as well with adhesions between the lung and chest wall. Complications: none Specimen: extrapleural hematoma and intr apleural hematoma sent to Lab as separate specimens. EBL: 100 mL Fluids: 650ml crystalloid, 3u pRBC, 2u F FP Anesthesia: GETA Dispo: to PACU, extubated, stable Extracted from: Title: Clinical Document Author: Domonique Clemons MD Date: Trauma Surgery History and Physical Date of Admission/Consultation: Consulting MD: Murali Bardales MD: Clau Chief Complaint: "L shoulder pain " History of Present Illness: 64 year old man sp [facility] [place], DC'd on 10/10 who presented with complaints of worsening chest /shoulder pain. Patient was seen at an OSH which was concerning for empyema and transferred here for further work up and care. He describes the pain as 8/10 , constant with aching and sharp qualities causing him to have shortness of breath. The onset was sudden with no alleviating or aggravating factors. Past Medical History: 1. HTN 2. DM 3. HLD Past Surgical History: 1. VATS 09/30/14 Home Medications: Malcom Tramadol ASA 81 Colace Atorvastatin Iron Gabapentin Insulin Metformin Quinapril Allergies: NKDA Social History: Alcohol - social Tobacco - Negative Drug use - Negative Review of Systems: Constitutional: + fevers (T max 102 at h ome) Eyes: No blurry vision Ears/Nose/Throat: No change in hearing CV: +chest pain; no palpitations Resp: + SOB GI: + decreased appetite; No abdominal p ain. No nausea, vomiting, or diarrhea : No dysuria MSK: L shoulder pain Skin: Oozing from previous CT site Neuro:+ dizzyness when standing; No tanya rry vision or headache Psych: No depression or anxiety Physical Examination: ED VS: BP 137/70 HR 113 RR 18 Temp 98 .6 GCS: 15 Neuro: AAO, NAD, GCS 15 Head: NCAT Eyes:PERRL Nose/throat: Midline; no deformities Neck: supple; Chest: Decreased breath sounds b/l; L>RT AB; no crepitus. Abdomen: S/ non distended / [...] with ultrasound. Interval increase in right pleural effus ion Interval increase in left hip hematoma Small amount of intraluminal air in blad lupe. Correlate with recent instrumentation. O therwise no significant interval change Assessment and Plan: 64 yoM brought in by as a transfer from OSH level s/p [facility] [place] on 09/19/16 and discharge on 10/10. The patient presented to OSH with c/o worsening chest /shoulder pain and fevers. CT chest revealed an enlarg ing empyema. Labs showed Hb 5.9 for wh ich he is recieving 1u PRBC for (DC hgb 6.4), Cr 0.9, BE 1, LA: 1.0 Injuries and plan as follows: Injuries: Consults/Plans: 1. Empyema 1. Vanc, cefepime. SIMU admit . Thoracotomy today 2. 2. VEP/IS 3. Acute on chronic anemia 3. 1u PRBC w ith post tx CBC Sharon Clemons MD [phone]
--- OUTSIDE RECORDS SUMMARY | 2019-11-03 22:29 | XMS REPORT | Summary of Care ---
:1950 Author Organization [facility] Address [address] [place] [id number]- Encounter HQ Margaretr_deniz(FIN) [id number] Date(s): 02/19/17 - 02/21/[address] Professional Services provided by [facility] [place] [address]- Final: Multiple fractures of ribs, left side, initial encounter for closed fracture Discharge Disposition: Home or Self Care Attending Physician: Fernando Zaman MD Admitting Physician: Fernando Zaman MD Vital Signs Most recent to oldest [Reference 1 2 3 Range]: Height 190.5 cm 190.5 cm (02/19/17 1:50 PM) (02/19/17 10:12 AM) Temperature Oral [96.4-99.1 98.2 DegF 98.1 DegF 98.4 DegF DegF] (02/21/17 1:07 PM) (02/21/17 12:53 AM) (02/20/17 10:21 PM) Blood Pressure [90-140/60-90 129/78 mmHg 149/81 mmHg 135 /69 mmHg mmHg] (02/21/17 1:07 PM) *HI* (02/21/17 12:53 A M) (02/21/17 8:15 AM) Respiratory Rate [14-20 BRMIN] 18 BRMIN 18 BRMIN 1 8 BRMIN (02/21/17 1:07 PM) (02/21/17 8:15 AM) (02/21/17 12:53 AM) Peripheral Pulse Rate [60-100 72 bpm 91 bpm 76 bpm bpm] (02/21/17 1:07 PM) (02/21/17 8:15 AM) (02/21/17 12:53 AM) Weight 102.273 kg 102.273 kg (02/19/17 1:50 PM) (02/19/17 10:12 AM) Body Mass Index 28.18 m2 28.18 m2 (02/19/17 1:50 PM) (02/19/17 10:12 AM) Problem List Condition Effective Dates Status Health Status Informant DM (diabetes mellitus)(Confirmed) Resolved HTN (hypertension)(Confirmed) Resolved Allergies, Adverse Reactions, Alerts Substance Reaction Severity Status NKDA Active Medications acetaminophen 1,000 mg, 2 tab, Route: PO, Drug form: TAB, Q6H, Dosing Weight 102.273, kg, Start date: 02/19/17 18:00:00 CDT, Duration: 30 day, Stop date: 03/21/17 12:00:00 CDT Notes: Max acetaminophen 4000 mg/day (4 gm/day). (Same as: Tylenol Extra Strength) Start Date: 02/19/17 Stop Date: 02/21/17 Status: Discontinuedacetaminophen 500 mg oral tablet 1,000 mg = 2 tab, PO, Q6H, X 7 day, # 56 tab, 0 Refill(s) Start Date: 02/21/17 Stop Date: 02/28/17 Status: OrderedamLODIPine 10 mg, 1 tab, Route: PO, Drug form: TAB, Daily, Dosing Weight 102.273, kg, Start date: 02/20/17 9:00:00 CDT, Duration: 30 day, Stop date: 03/21/17 9:00:00 CDT Notes: (Same as: Norvasc) Start Date: 02/20/17 Stop Date: 02/21/17 Status: DiscontinuedamLODIPine 10 mg oral tablet 10 mg = 1 tab, PO, Daily, # 90 tab, 1 Refill(s) Start Date: 02/19/17 Status: Orderedaspirin 81 mg, 1 tab, Route: PO, Drug form: CHEWTAB, Daily, Dosing Weight 102.273, kg, Start date: 02/20/17 9:00:00 CDT, Duration: 30 day, Stop date: 03/21/17 9:00:00 CDT Notes: Take with food. Start Date: 02/20/17 Stop Date: 02/21/17 Status: Discontinuedatorvastatin 20 mg, 1 tab, Route: PO, Drug form: TAB, Bedtime, Dosing Weight 102.273, kg, Start date: 02/20/17 21:00:00 CDT, Duration: 30 day, Stop date: 03/21/17 21:00:00 CDT Notes: (Same As: Lipitor) Start Date: 02/20/17 Stop Date: 02/21/17 Status: DiscontinuedDextrose 50% Syringe 25 gm, 50 mL, Route: IVP, Drug Form: INJ, Dosing Weight 102.273, kg, PRN, PRN Blood Glucose Results,Start date: 02/19/17 13:01:00 CDT, Duration: 30 day, Stop date: 03/21/17 13:00:00 CDT Start Date: 02/19/17 Stop Date: 02/20/17 Status: DiscontinuedDextrose 50% Syringe 12.5 gm, 25 mL, Route: IVP, Drug Form: INJ, Dosing Weight 102.273, kg, PRN, PRN Blood Glucose Results, Start date: 02/19/17 13:01:00 CDT, Duration: 30 day, Stop date: 03/21/17 13:00:00 CDT Start Date: 02/19/17 Stop Date: 02/20/17 Status: DiscontinuedDextrose 50% Syringe 12.5 gm, 25 mL, Route: IVP, Drug Form: INJ, Dosing Weight 102.273, kg, PRN, PRN Blood Glucose Results, Start date: 02/20/17 14:20:00 CDT, Duration: 30 day, Stop date: 03/22/17 14:19:00 CDT Start Date: 02/20/17 Stop Date: 02/21/17 Status: DiscontinuedDextrose 50% Syringe 25 gm, 50 mL, Route: IVP, Drug Form: INJ, Dosing Weight 102.273, kg, PRN, PRN Blood Glucose Results,Start date: 02/20/17 14:20:00 CDT, Duration: 30 day, Stop date: 03/22/17 14:19:00 CDT Start Date: 02/20/17 Stop Date: 02/21/17 Status: DiscontinuedDilaudid 1 mg, 0.5 mL, Route: IVP, Drug form: INJ, ONCE, Dosing Weight 102.273, kg, Priority: STAT, Start date: 02/19/17 11:28:00 CDT, Stop date: 02/19/17 11:28:00 CDT Notes: Same as: Dilaudid Start Date: 02/19/17 Stop Date: 02/19/17 Status: Completeddocusate sodium 100 mg oral capsule 100 mg, 1 cap, Route: PO, Drug form: CAP, Daily, Dosing Weight 102.273, kg, Start date: 02/20/17 9:00:00 CDT, Duration: 30 day, Stop date: 03/21/17 9:00:00 CDT Notes: (Same as: Colace) (Do Not Crush) Start Date: 02/20/17 Stop Date: 02/21/17 Status: Discontinuedglucagon 1 mg, Route: IM, Drug form: PDR/INJ, PRN, Dosing Weight 102.273, kg, PRN Blood Glucose Results, Start date: 02/19/17 13:01:00 CDT, Duration: 30 day, Stop date: 03/21/17 13:00:00 CDT Start Date: 02/19/17 Stop Date: 02/20/17 Status: Discontinuedglucagon 1 mg, Route: IM, Drug form: PDR/INJ, PRN, Dosing Weight 102.273, kg, PRN Blood Glucose Results, Start date: 02/20/17 14:20:00 CDT, Duration: 30 day, Stop date: 03/22/17 14:19:00 CDT Start Date: 02/20/17 Stop Date: 02/21/17 Status: Discontinuedheparin 5,000 unit, 1 mL, Route: SUB-Q, Drug form: INJ, Q8H, Dosing Weight 102.273, kg, Start date: 02/20/1716:00:00 CDT, Duration: 30 day, Stop date: 03/21/17 8:00:00 CDT Notes: porcine heparin Start Date: 02/19/17 Stop Date: 02/20/17 Status: Discontinuedheparin 7,500 unit, 1.5 mL, Route: SUB-Q, Drug form: INJ, Q8H, Dosing Weight 102.273, kg, Start date: 02/20/17 18:00:00 CDT, Duration: 30 day, Stop date: 03/22/17 10:00:00 CDT Notes: porcine heparin Start Date: 02/20/17 Stop Date: 02/21/17 Status: DiscontinuedhydrALAZINE 20 mg, 1 mL, Route: IV, Drug form: INJ, Q6H, Dosing Weight 102.273, kg, PRN Hypertension, Start date: 02/19/17 12:20:00 CDT, Duration: 30 day, Stop date: 03/21/17 12:19:00 CDT Notes: (Same as: Apresoline)Push over 5 minutes Start Date: 02/19/17 Stop Date: 02/20/17 Status: Discontinuedinsulin lispro 6 unit, 0.06 mL, Route: SUB-Q, Drug form: SOLN, TID-Before Meals, Dosing Weight 102.273, kg, PRN Blood Glucose Results, Start date: 02/19/17 13:01:00 CDT, Stop date: 03/21/17 13:00:00 CDT Notes: (Same as: Humalog ) Roll in palms of hands gently; Do not shake `vigorously. "Single PatientUse Only " (Restricted to patients requiring a dose > 60 units)WASTE: F/P - Black; E - Municipal Trash Bin Stable for 28 days at room temperature.Expires in days from Date Start Date: 02/19/17 Stop Date: 02/20/17 Status: Discontinuedinsulin lispro 3 unit, 0.03 mL, Route: SUB-Q, Drug form: SOLN, TID-Before Meals, Dosing Weight 102.273, kg, PRN Blood Glucose Results, Start date: 02/19/17 13:01:00 CDT, Stop date: 03/21/17 13:00:00 CDT Notes: (Same as: Humalog ) Roll in palms of hands gently; Do not shake `vigorously. "Single PatientUse Only " (Restricted to patients requiring a dose > 60 units)WASTE: F/P - Black; E - Municipal Trash Bin Stable for 28 days at room temperature.Expires in days from Date Start Date: 02/19/17 Stop Date: 02/20/17 Status: Discontinuedinsulin lispro 9 unit, 0.09 mL, Route: SUB-Q, Drug form: SOLN, TID-Before Meals, Dosing Weight 102.273, kg, PRN Blood Glucose Results, Start date: 02/19/17 13:01:00 CDT, Stop date: 03/21/17 13:00:00 CDT Notes: (Same as: Humalog ) Roll in palms of hands gently; Do not shake `vigorously. "Single PatientUse Only " (Restricted to patients requiring a dose > 60 units)WASTE: F/P - Black; E - Municipal Trash Bin Stable for 28 days at room temperature.Expires in days from Date Start Date: 02/19/17 Stop Date: 02/20/17 Status: Discontinuedinsulin lispro 12 unit, 0.12 mL, Route: SUB-Q, Drug form: SOLN, TID-Before Meals, Dosing Weight 102.273, kg, PRN Blood Glucose Results, Start date: 02/19/17 13:01:00 CDT, Stop date: 03/21/17 13:00:00 CDT Notes: (Same as: Humalog ) Roll in palms of hands gently; Do not shake `vigorously. "Single PatientUse Only " (Restricted to patients requiring a dose > 60 units)WASTE: F/P - Black; E - Municipal Trash Bin Stable for 28 days at room temperature.Expires in days from Date Start Date: 02/19/17 Stop Date: 02/20/17 Status: Discontinuedinsulin lispro 15 unit, 0.15 mL, Route: SUB-Q, Drug form: SOLN, TID-Before Meals, Dosing Weight 102.273, kg, PRN Blood Glucose Results, Start date: 02/19/17 13:01:00 CDT, Stop date: 03/21/17 13:00:00 CDT Notes: (Same as: Humalog ) Roll in palms of hands gently; Do not shake `vigorously. "Single PatientUse Only " (Restricted to patients requiring a dose > 60 units)WASTE: F/P - Black; E - Municipal Trash Bin Stable for 28 days at room temperature.Expires in days from Date Start Date: 02/19/17 Stop Date: 02/20/17 Status: DiscontinuedInsulin regular 10 unit, 0.1 mL, Route: SUB-Q, Drug form: SOLN, TID-Before Meals, Dosing Weight 102.273, kg, PRN Blood Glucose Results, Start date: 02/20/17 14:20:00 CDT, Duration: 30 day, Stop date: 03/22/17 14:19:00CDT Notes: (Same as: Humulin R) Roll in palms of hands gently; Do not shake vigorously. "single patientuse only"(Restricted to patients requiring a dose > 60 units)WASTE: F/P - Black; E - Municipal Trash Bin Stable for 28 days at room temperatureExpires in days from Date Start Date: 02/20/17 Stop Date: 02/21/17 Status: DiscontinuedInsulin regular 8 unit, 0.08 mL, Route: SUB-Q, Drug form: SOLN, TID-Before Meals, Dosing Weight 102.273, kg, PRN Blood Glucose Results, Start date: 02/20/17 14:20:00 CDT, Duration: 30 day, Stop date: 03/22/17 14:19:00CDT Notes: (Same as: Humulin R) Roll in palms of hands gently; Do not shake vigorously. "single patientuse only"(Restricted to patients requiring a dose > 60 units)WASTE: F/P - Black; E - Municipal Trash Bin Stable for 28 days at room temperatureExpires in days from Date Start Date: 02/20/17 Stop Date: 02/21/17 Status: DiscontinuedInsulin regular 6 unit, 0.06 mL, Route: SUB-Q, Drug form: SOLN, TID-Before Meals, Dosing Weight 102.273, kg, PRN Blood Glucose Results, Start date: 02/20/17 14:20:00 CDT, Duration: 30 day, Stop date: 03/22/17 14:19:00CDT Notes: (Same as: Humulin R) Roll in palms of hands gently; Do not shake vigorously. "single patientuse only"(Restricted to patients requiring a dose > 60 units)WASTE: F/P - Black; E - Municipal Trash Bin Stable for 28 days at room temperatureExpires in days from Date Start Date: 02/20/17 Stop Date: 02/21/17 Status: DiscontinuedInsulin regular 4 unit, 0.04 mL, Route: SUB-Q, Drug form: SOLN, TID-Before Meals, Dosing Weight 102.273, kg, PRN Blood Glucose Results, Start date: 02/20/17 14:20:00 CDT, Duration: 30 day, Stop date: 03/22/17 14:19:00CDT Notes: (Same as: Humulin R) Roll in palms of hands gently; Do not shake vigorously. "single patientuse only"(Restricted to patients requiring a dose > 60 units)WASTE: F/P - Black; E - Municipal Trash Bin Stable for 28 days at room temperatureExpires in days from Date Start Date: 02/20/17 Stop Date: 02/21/17 Status: DiscontinuedInsulin regular 2 unit, 0.02 mL, Route: SUB-Q, Drug form: SOLN, TID-Before Meals, Dosing Weight 102.273, kg, PRN Blood Glucose Results, Start date: 02/20/17 14:20:00 CDT, Duration: 30 day, Stop date: 03/22/17 14:19:00CDT Notes: (Same as: Humulin R) Roll in palms of hands gently; Do not shake vigorously. "single patientuse only"(Restricted to patients requiring a dose > 60 units)WASTE: F/P - Black; E - Municipal Trash Bin Stable for 28 days at room temperatureExpires in days from Date Start Date: 02/20/17 Stop Date: 02/21/17 Status: DiscontinuedLantus 100 units/mL 50 unit, SUB-Q, QAM, 0 Refill(s) Start Date: 02/19/17 Status: OrderedLovenox 30 mg, Route: SUB-Q, Drug form: INJ, Q12H, Dosing Weight 102.273, kg, Priority: STAT, Start date: 02/19/17 12:20:00 CDT, Duration: 30 day, Stop date: 03/21/17 9:00:00 CDT Start Date: 02/19/17 Stop Date: 02/19/17 Status: Discontinuedmetoprolol tartrate 50 mg, 1 tab, Route: PO, Drug form: TAB, Q12H, Dosing Weight 102.273, kg, Start date: 02/19/17 21:00:00 CDT, Duration: 30 day, Stop date: 03/21/17 9:00:00 CDT Notes: (Same as: Lopressor) Start Date: 02/19/17 Stop Date: 02/21/17 Status: Discontinuedmetoprolol tartrate 50 mg oral tablet 50 mg = 1 tab, PO, BID, # 180 tab, 0 Refill(s) Start Date: 02/19/17 Status: Orderedmorphine Sulfate 4 mg, 1 mL, Route: IVP, Drug form: SOLN, ONCE, kg, Priority: STAT, Start date: 02/19/17 10:22:00 CDT, Stop date: 02/19/17 10:22:00 CDT Notes: (Same as:MORPhine Sulfate) Start Date: 02/19/17 Stop Date: 02/19/17 Status: CompletedNS (Bolus) IV 1,000 mL, 1,000 ml/hr, Infuse Over: 1 hr, Route: IV, 1,000, Drug form: INJ, ONCE, Priority: STAT, Dosing Weight 102.273 kg, Start date: 02/19/17 11:23:00 CDT, Duration: 1 doses or times, Stop date: 02/19/17 11:23:00 CDT Start Date: 02/19/17 Stop Date: 02/19/17 Status: CompletedoxyCODONE 5 mg oral tablet 5 mg, 1 tab, Route: PO, Drug form: TAB, Q6H, Dosing Weight 102.273, kg, PRN Pain Score 7-10, , Start date: 02/19/17 12:19:00 CDT, Duration: 30 day, Stop date: ... Notes: (Same as: Roxicodone) Start Date: 02/19/17 Stop Date: 02/21/17 Status: Discontinuedpantoprazole 40 mg, PO, Daily, # 30 tab, 0 Refill(s) Start Date: 02/20/17 Stop Date: 02/20/17 Status: DeletedSaline Flush 0.9% 10 mL, Route: IVP, Drug Form: INJ, kg, PRN, PRN Line Flush, Start date: 02/19/17 10:16:00 CDT, Duration: 30 day, Stop date: 03/21/17 10:15:00 CDT Notes: Same as: BD Posiflush Sterile Start Date: 02/19/17 Stop Date: 02/21/17 Status: Discontinuedsenna 17.2 mg, 2 tab, Route: PO, Drug Form: TAB, Dosing Weight 102.273, kg, Daily, Start date: 02/20/17 9:00:00 CDT, Duration: 30 day, Stop date: 03/21/17 9:00:00 CDT Notes: (Same as: Senokot) Start Date: 02/20/17 Stop Date: 02/21/17 Status: Discontinuedtramadol 50 mg oral tablet 50 mg, 1 tab, Route: PO, Drug form: TAB, Q4H, Dosing Weight 102.273, kg, Start date: 02/19/17 16:00:00 CDT, Duration: 30 day, Stop date: 03/21/17 12:00:00 CDT Notes: Not to exceed 400mg/day. (Same As: Ultram) Start Date: 02/19/17 Stop Date: 02/20/17 Status: Discontinuedtramadol 50 mg oral tablet 50 mg, 1 tab, Route: PO, Drug form: TAB, Q6H, Dosing Weight 102.273, kg, Start date: 02/20/17 18:00:00 CDT, Duration: 30 day, Stop date: 03/22/17 12:00:00 CDT Start Date: 02/20/17 Stop Date: 02/21/17 Status: Discontinuedtramadol 50 mg oral tablet 50 mg = 1 tab, PO, Q6H, PRN Pain, X 7 day, # 28 tab, 0 Refill(s) Start Date: 02/21/17 Stop Date: 02/28/17 Status: OrderedVisipaque 320mg/ml 130 mL, Route: IVP, Drug Form: SOLN, kg, ONCALL, STAT, Start date: 02/19/17 10:20:00 CDT, Duration: 1 doses or times, Dose = 2.2ml/kg, Max dose = 150ml -- "To be infused by Radiology Staff ONLY" Notes: (Same as: Visipaque).WASTE: F/P - Black; E - Municipal Trash Bin Start Date: 02/19/17 Stop Date: 02/19/17 Status: CompletedZofran 4 mg, 2 mL, Route: IVP, Drug form: INJ, ONCE, kg, Priority: STAT, Start date: 02/19/17 10:22:00 CDT,Stop date: 02/19/17 10:22:00 CDT Notes: (Same as: Zofran) MEDICATION WASTE Product Size: 4 mgProduct Wasted: ___ mg Start Date: 02/19/17 Stop Date: 02/19/17 Status: Completed Results BLOOD BANK RESULTS Most recent to oldest [Reference Range]: 1 2 3 ABO/Rh B POS B POS *Unknown* *Unknown* (02/20/17 1:54 AM) (02/19/17 10:19 AM) Antibody Scrn Negative Negative (02/20/17 1:54 AM) (02/19/17 10:19 AM) ELECTROLYTES Most recent to oldest 1 2 3 [Reference Range]: Sodium Lvl [135-145 mEq/L] 141 mEq/L 140 mEq/L 138 m Eq/L (02/21/17 3:20 AM) (02/20/17 1:54 AM) (02/19/17 10:24 AM) Potassium Lvl [3.5-5.1 mEq/L] 4.1 mEq/L 4.2 mEq/L 5. 5 mEq/L (02/21/17 3:20 AM) (02/20/17 1:54 AM) *HI* (02/19/17 10:24 AM ) Chloride Lvl [95-109 mEq/L] 110 mEq/L 110 mEq/L 106 mEq/L *HI* *HI* (02/19/17 10:24 AM ) (02/21/17 3:20 AM) (02/20/17 1:54 AM) CO2 [24-32 mEq/L] 22 mEq/L 23 mEq/L 22 mEq/L *LOW* *LOW* *LOW* (02/21/17 3:20 AM) (02/20/17 1:54 AM) (02/19/17 10:24 AM) AGAP [10.0-20.0 mEq/L] 13.1 mEq/L 11.2 mEq/L 15.5 mEq/ L (02/21/17 3:20 AM) (02/20/17 1:54 AM) (02/19/17 10:24 AM) CHEM PANEL Most recent to oldest 1 2 3 [Reference Range]: Creatinine Lvl [0.50-1.40 1.87 mg/dL 2.18 mg/dL 2.60 m g/dL mg/dL] *HI* *HI* *HI* (02/21/17 3:20 AM) (02/20/17 1:54 AM) (02/19/17 10:24 AM) eGFR 37 mL/min/1.73m2 1 31 mL/min/1.73m2 2 17 mL/min/ 1.73m2 3 *NA* *NA* *NA* (02/21/17 3:20 AM) (02/20/17 1:54 AM) (02/19/17 10:24 AM) BUN [7-22 mg/dL] 28 mg/dL 32 mg/dL 44 mg/dL *HI* *HI* *HI* (02/21/17 3:20 AM) (02/20/17 1:54 AM) (02/19/17 10:24 AM) Glucose Lvl [70-99 mg/dL] 172 mg/dL 260 mg/dL 364 mg /dL *HI* *HI* *HI* (02/21/17 3:20 AM) (02/20/17 1:54 AM) (02/19/17 10:24 AM) Calcium Lvl [8.5-10.5 mg/dL] 8.7 mg/dL 7.9 mg/dL 9.1 mg/dL (02/21/17 3:20 AM) *LOW* (02/19/17 10:24 A M) (02/20/17 1:54 AM) Phosphorus [2.5-4.5 mg/dL] 2.7 mg/dL (02/21/17 3:20 AM) Magnesium Lvl [1.8-2.4 2.2 mg/dL mg/dL] (02/21/17 3:20 AM) Lactic Acid Lvl [0.5-2.2 1.0 mMol/L mMol/L] (02/19/17 10:24 AM) 1Result Comment: The eGFR is calculated [...] eGFR should be multiplied by the estimated BMI.DRUG SCREEN Most recent to oldest [Reference Range]: 1 2 3 U Amph Scr [Negative] Negative *NA* (02/19/17 2:24 PM) U Edda Scr [Negative] Negative *NA* (02/19/17 2:24 PM) U Benzodia Scr [Negative] Negative *NA* (02/19/17 2:24 PM) U Cocaine Scr [Negative] Negative *NA* (02/19/17 2:24 PM) U Opiate Scr [Negative] Positive *ABN* (02/19/17 2:24 PM) U Phencyc Scr [Negative] Negative *NA* (02/19/17 2:24 PM) U Cannab Scr [Negative] Negative *NA* (02/19/17 2:24 PM) UDS Note See Note (02/19/17 2:24 PM) TOXICOLOGY Most recent to oldest [Reference Range]: 1 2 3 Etoh (%) <0.003 % (02/19/17 10:24 AM) Ethanol Lvl <3.0 mg/dL (02/19/17 10:24 AM) URINE AND STOOL Most recent to oldest [Reference Range]: 1 2 3 UA Turbidity [Clear] Clear (02/19/17 2:24 PM) UA Color [Yellow] Light Yellow *NA* (02/19/17 2:24 PM) UA pH [5.0-8.0] 6.0 (02/19/17 2:24 PM) UA Spec Grav [<=1.030] 1.034 *HI* (02/19/17 2:24 PM) UA Glucose [Negative mg/dL] >=1000 mg/dL *ABN* (02/19/17 2:24 PM) UA Blood [Negative] Moderate *ABN* (02/19/17 2:24 PM) UA Ketones TR *NA* (02/19/17 2:24 PM) UA Protein [Negative mg/dL] 100 mg/dL *ABN* (02/19/17 2:24 PM) UA Urobilinogen [0.1-1.0 mg/dL] <=1.0 mg/dL *NA* (02/19/17 2:24 PM) UA Bili [Negative] Negative *NA* (02/19/17 2:24 PM) UA Leuk Est [Negative] Negative (02/19/17 2:24 PM) UA Nitrite [Negative] Negative (02/19/17 2:24 PM) UA WBC [0-5 /HPF] <1 /HPF *NA* (02/19/17 2:24 PM) UA RBC [0-2 /HPF] 2 /HPF *NA* (02/19/17 2:24 PM) UA Sq Epi None Seen *NA* (02/19/17 2:24 PM) HEMATOLOGY Most recent to oldest 1 2 3 [Reference Range]: WBC [3.7-10.4 K/CMM] 9.8 K/CMM 8.9 K/CMM 15.9 K/CMM (02/21/17 3:20 AM) (02/20/17 1:54 AM) *HI* (02/19/17 10:24 AM ) RBC [4.70-6.10 M/CMM] 3.54 M/CMM 3.16 M/CMM 4.25 M/CMM *LOW* *LOW* *LOW* (02/21/17 3:20 AM) (02/20/17 1:54 AM) (02/19/17 10:24 AM) Hgb [14.0-18.0 g/dL] 10.8 g/dL 9.6 g/dL 12.2 g/dL *LOW* *LOW* *LOW* (02/21/17 3:20 AM) (02/20/17 1:54 AM) (02/19/17 10:24 AM) Hct [42.0-54.0 %] 31.2 % 27.5 % 37.4 % *LOW* *LOW* *LOW* (02/21/17 3:20 AM) (02/20/17 1:54 AM) (02/19/17 10:24 AM) MCV [80.0-94.0 fL] 88.0 fL 87.0 fL 87.9 fL (02/21/17 3:20 AM) (02/20/17 1:54 AM) (02/19/17 10:24 AM) MCH [27.0-31.0 pg] 30.5 pg 30.5 pg 28.8 pg (02/21/17 3:20 AM) (02/20/17 1:54 AM) (02/19/17 10:24 AM) MCHC [32.0-36.0 g/dL] 34.6 g/dL 35.0 g/dL 32.7 g/dL (02/21/17 3:20 AM) (02/20/17 1:54 AM) (02/19/17 10:24 AM) RDW [11.5-14.5 %] 13.6 % 13.5 % 13.5 % (02/21/17 3:20 AM) (02/20/17 1:54 AM) (02/19/17 10:24 AM) Platelet [133-450 K/CMM] 237 K/CMM 214 K/CMM 290 K/C MM (02/21/17 3:20 AM) (02/20/17 1:54 AM) (02/19/17 10:24 AM) MPV [7.4-10.4 fL] 7.6 fL 7.4 fL 7.4 fL (02/21/17 3:20 AM) (02/20/17 1:54 AM) (02/19/17 10:24 AM) Segs [45.0-75.0 %] 75.0 % 69.4 % 80.7 % (02/21/17 3:20 AM) (02/20/17 1:54 AM) *HI* (02/19/17 10:24 AM ) Lymphocytes [20.0-40.0 %] 13.7 % 16.0 % 11.9 % *LOW* *LOW* *LOW* (02/21/17 3:20 AM) (02/20/17 1:54 AM) (02/19/17 10:24 AM) Monocytes [2.0-12.0 %] 9.5 % 13.6 % 5.9 % (02/21/17 3:20 AM) *HI* (02/19/17 10:24 A M) (02/20/17 1:54 AM) Eosinophils [0.0-4.0 %] 1.3 % 0.5 % 1.1 % (02/21/17 3:20 AM) (02/20/17 1:54 AM) (02/19/17 10:24 AM) Basophils [0.0-1.0 %] 0.5 % 0.5 % 0.4 % (02/21/17 3:20 AM) (02/20/17 1:54 AM) (02/19/17 10:24 AM) Segs-Bands # [1.5-8.1 K/CMM] 7.3 K/CMM 6.2 K/CMM 12. 8 K/CMM (02/21/17 3:20 AM) (02/20/17 1:54 AM) *HI* (02/19/17 10:24 AM ) Lymphocytes # [1.0-5.5 1.3 K/CMM 1.4 K/CMM 1.9 K/CMM K/CMM] (02/21/17 3:20 AM) (02/20/17 1:54 AM) (02/19/17 10:24 AM) Monocytes # [0.0-0.8 K/CMM] 0.9 K/CMM 1.2 K/CMM 0.9 K/CMM *HI* *HI* *HI* (02/21/17 3:20 AM) (02/20/17 1:54 AM) (02/19/17 10:24 AM) Eosinophils # [0.0-0.5 0.1 K/CMM 0.2 K/CMM K/CMM] (02/21/17 3:20 AM) (02/19/17 10:24 AM) Basophils # [0.0-0.2 K/CMM] 0.1 K/CMM (02/19/17 10:24 AM) PT [12.0-14.7 seconds] 15.0 seconds *HI* (02/20/17 1:54 AM) INR [0.85-1.17] 1.16 (02/20/17 1:54 AM) PTT [22.9-35.8 seconds] 33.3 seconds (02/20/17 1:54 AM) ACT (TEG) Rapid [86-118 97 seconds seconds] (02/19/17 10:24 AM) Split Point Rapid 0.4 minutes *NA* (02/19/17 10:24 AM) R-time Rapid [0.4-0.7 0.5 minutes minutes] (02/19/17 10:24 AM) K-time Rapid [0.6-2.3 0.8 minutes minutes] (02/19/17 10:24 AM) Angle Rapid [64-80 degrees] 81 degrees *HI* (02/19/17 10:24 AM) Max Amplitude Rapid [52-71 75 mm mm] *HI* (02/19/17 10:24 AM) G-value Rapid [5.0-11.6 K 15.0 K d/sc d/sc] *HI* (02/19/17 10:24 AM) Estimated % Lysis Rapid 0.2 % [0.0-7.5 %] (02/19/17 10:24 AM) Immunizations Given and Recorded Vaccine Date Status Refusal Reason pneumococcal 23-valent vaccine 09/20/14 Given Procedures Procedure Date Related Diagnosis Body Site Fusion of lumbar spine Knee replacement1 1left Social History Social History Type Response Substance Abuse Use: None. Alcohol Never Smoking Status Never smoker; Exposure to To bacco Smoke None; Cigarette Smoking Last 365 Days No; Reg Smokin g Cessation Counseling No Assessment and Plan Extracted from: Title: Trauma Progress Note Author: Jorge Luis Paredes MD Joshua e: 02/21/17 Trauma Surgery Floor Progress Note: Today's Date: 02/21/2017 Hospital Day # 2 Chief Complaint: " no complaints " Overnight Events: no acute events overni ght Brief History of Admission: Pt. is a 67 y/o M with PMH significant for HTN, DMII, R renal mass s/p R nephrectomy 2 months ago who presents to [facility] ED as Level II trauma s/p NURSING HOME earlier this AM. Pt. admi ts to [...] 02/21: Physical Examination/Findings: Vitals Tmp(F) Tmp(C) Ttype BP MAP Pulse RR SpO2 FIO2 ETCO2 02/21 00:53 98.1 36.72 oral 135/69 --- 7 6 18 97 --- --- 02/20 22:21 98.4 36.89 oral 147/78 --- 7 7 18 95 --- --- 02/20 21:29 ---- ---- ---- ----- --- --- 15 94 --- --- 02/20 20:00 ---- ---- ---- 129/72 94 81 14 94 --- --- 02/20 19:04 98.8 37.11 axil ----- --- -- - -- --- --- --- 24 Hr Tmax: 98.8F (37.11c) at 02/20 19:0 4 24 Hr Tmin: 97.4F (36.33c) at 02/20 11:30 Constitutional/Neuro/Psych: GCS: Eye 4 Verbal 5 Mot or: 6 Total: 15 Cranial nerve exam: II-XII intact Reflexes: intact Sensation: gross sensory intact Judgment: appropriate Orientation: AAOX3 Memory/mood: WNL Medications: 02/19/17 18:00 acetaminophen 1,000 mg PO Q6H 02/19/17 16:00 tramadol (tramadol 50 mg oral tablet) 50 mg PO Q4H PRN: 02/19/17 12:19 oxyCODONE (oxyCODONE 5 mg oral tablet) 5 mg PO Q6H x1/24hr HEENT: Eyes: EOMI Conjunctiva and Eye lids: clear, intact. Pupils: PER Ears and Nose: Gross hearing intact Lips and Teeth: No lesions, dentition in tact Neck: WNL Cardiovascular: Cardiac examination: Regular rate and rh ythm Extremity Edema: BLE edema-improved had prior to accident Pulse exam: LUE + RUE + LLE + RLE + Medications: 02/20/17 9:00 amLODIPine 10 mg PO Daily- home medication 02/20/17 9:00 aspirin 81 mg PO Daily -[facility] medication 02/19/17 21:00 metoprolol (metoprolol ta rtrate) 50 mg PO [id number] medication Pulmonary: CXR: 1. No significant interval changes relative to the comparison exam. Chest examination: Lungs CTAB IS: 2000/1500 [...] cc 24 Hour Urine Output: 1.62 L Renae necessary for:none Infectious Disease/Hematology: WBC 9.8 RBC 3.54 L Hgb 10.8 L Hct 31.2 L MCV 88.0 MCH 30.5 MCHC 34.6 RDW 13.6 Platelet 237 MPV 7.6 Segs 75.0 Antibiotics: none Central venous access: none DVT prophylaxis: 02/19/17 16:00 heparin 5,000 unit SUB-Q Q8H Teds with SCD Endocrine: Glucose range: 200-364 (172 today) 24 Hour Insulin requirements: 6 unit reg ular x 2 yesterday, 2U today Musculoskeletal/Skin: Activity: OOB Weight bearing status: NWB LUE Skin/wound examination: significant maggie efraín to body, BUE, knees, L shoulder Extremity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
--- OUTSIDE RECORDS SUMMARY | 2019-11-03 22:35 | XMS REPORT ---
:1950 Author Organization [facility] t Address [address] [place] [address] Care Team Providers Name Role Phone Janes Zaman Attending Clinician Sergio Saul Attending Clinician Vanessa Olguin Attending Clinician Janes Zaman Admitting Clinician Sergio Saul Admitting Clinician Vanessa Olguin Admitting Clinician Problems Condition Condition Condition Status Onset Resolution Last Treating Co mments Source Name Details Category Date Date Treatment Clinician Date LONG-TERM Diagnosis Active 2017-02-19 02-19 12:31:00 [place] LONG-TERM 00:00: Medical 00 Center Active 02/19/2017 [facility] CHOLO Diagnosis Active 2017-04-30 BILLING 02-19 08:35:00 [place] 00:00: Medical CHOLO 00 Center BILLING Active 02/19/2017 [facility] MULTIPLE Diagnosis Active 2017-03-04 M H CLOSED 02-19 08:11:00 [place] LEFT SIDE MULTIPLE 00:00: Med ical RIBS FX CLOSED [address] [place] [address] LEFT SIDE RIBS FX Active 02/19/2017 [facility] FEVER Diagnosis Active 2014-10-28 10-28 16:07:00 [place] FEVER 00:00: Medical 00 Center Active 10/28/2014 [facility] LEFT CHEST Diagnosis Active 2014-11-15 SOFT 10-28 21:55:00 [place] TISSUE LEFT 00:00: Medical ABSCESS CHEST SOFT 00 Cente r TISSUE ABSCESS Active 10/28/2014 [facility] EMPYEMA Diagnosis Active 2014-10-26 4 21:54:00 [place] EMPYEMA 00:00: Medical 00 Center Active 10/12/2014 [facility] MULT RIB Diagnosis Active 2014-10-03 M H FX 06 15:46:00 [place] MULT RIB 00:00: Medica l FX 00 Center Active 5 [facility] Problem Active [facility] use of use of Mem[facility] insulin insulin l Outpati ent Clinics Type 2 Type [address] [facility]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 [facility] - mellitus mellitus Memori a with with l diabetic diabetic Outpat i chronic chronic ent kidney kidney Clinics disease disease Type 2 Type [address] [facility]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 [facility] - mellitus mellitus Memori a with with l hyperglyce hyperglyce Ou tpati nicole nicole ent Clinics Peripheral Peripheral Problem Active [facility] edema edema [facility] History of History of Problem Active [facility] nephrectom nephrectom Nell kes - y y [facility] l Outpati ent Clinics Chronic Chronic Problem Active [facility] kidney kidney [facility] - disease, disease, Memori a unspecifie unspecifie l d CKD d CKD Outpati stage stage ent Clinics Essential Essential Problem Active [facility] hypertensi hypertensi Nell kes - on on [facility]i ent Clinics Hyperchole Hyperchole Problem Active [facility] sterolemia sterolemia Nell kes - Memoria l Outpati ent Clinics Multiple Problem 2017-02-24 fractures 02:44:34 [place] of ribs, Multiple Medi blanquita left side, fractures [facility] initial of ribs, encounter left side, for closed initial fracture encounter for closed fracture 02/24/2017 [facility] Diabetes Problem Resolve 2017-02-24 mellitus d 02:44:34 [place] (disorder) Diabetes Me dical mellitus Center (disorder) Resolved Problem 02/24/2017 [facility] Hypertensi Problem Resolve 2017-02-24 ve d 02:44:34 [place] disorder, Medical systemic Hypertensi Cent er arterial ve (disorder) disorder, systemic arterial (disorder) Resolved Problem 02/24/2017 [facility] Final: Problem 2014-11-12 01:02:38 [place] Final: Medical Center 11/12/2014 [facility] MULTIPLE Diagnosis Active 2017-03-04 M H FRACTURES 08:11:00 [place] OF RIBS, MULTIPLE Medi blanquita LEFT SIDE, FRACTURES [facility] I OF RIBS, LEFT SIDE, I Active [facility] FRACTURE Diagnosis Active 2014-10-03 M H RIB 15:46:00 [place] NOS-CLOSED FRACTURE Me dical RIB Center NOS-CLOSED Active [facility] EMPYEMA Diagnosis Active 2014-10-26 W/O 21:54:00 [place] FISTULA EMPYEMA Medica l W/O Center FISTULA Active [facility] CELLULITIS Diagnosis Active 2014-11-15 NOS 21:55:00 [facility] CELLULITIS Center NOS Active [facility] Allergies, Adverse Reactions, Alerts This patient has no known allergies or adverse reactions. Social History Social Habit Start Date Stop Date Quantity Comments Source Social History 2017-02-19 2017-02-19 [facility] [place] 19:00:29 19:00:29 [facility] Medications Ordered Filled Start Stop Current Ordering Indication Dosage Frequency Signature Comments Components Source Medication Medication Date Date Medication? Clinician (SIG) Name Name Lipitor Lipitor Yes Macy [address] [facility] [address] 1[facility]13 [facility] - 00:[facility]: [facility] 00 [facility] NovoLog NovoLog Yes Macy as [facility] Flexpen Flexpen 4-16 Millender directed [facility] - 00:[facility]: [facility] 00 [facility] BD Pen BD Pen Yes Macy as [facility] Needle Mini Needle Mini 4-16 [facility]ender directed [facility] - U/F U/F 00:00: Memoria 00 [facility] Levemir Levemir Yes Macy [address] FlexTouch FlexTouch 4-04 [facility]ender [facility] - 00:00: Memoria 00 [employer] [facility] tramadol Yes 50 mg = 1 hydrochlori 02-21 tab, PO, [place] de 50 MG 22:40: Q6H, PRN Medic al Oral Tablet 00 Pain, X [address] day, # 28 tab, 0 Refill(s) acetaminoph Yes 1,000 mg = en 500 mg 02-21 2 tab, PO, [place] oral tablet 22:39: Q6H, X 7 Me dical 00 day, # 56 Center tab, 0 Refill(s) atorvastati No Notes: n 02-21 (Same As: [place] 02:00: Lipitor) [place] [id number] Center tramadol 50 No 50 mg, 1 MH mg oral 02-20 tab, [place] tablet 23:00: Route: PO, Medic al 00 Drug form: Center TAB, Q6H, Dosing Weight 102.273, kg, Start date: 02/20/17 18:00:00 CDT, Duration: 30 day, Stop date: 03/22/17 12:00:00 CDT heparin No Notes: 02-20 porcine [place] 23:00: heparin Medical Center Insulin No 60 MH regular 02-20 units) [place] 19:20: WASTE: F/P Medical 00 - Black; E Center - Municipal Trash Bin Stable for 28 days at room temperatur e Expires in days from ____Date Dextrose No 12.5 gm, 50% Syringe 02-20 25 mL, [place] 19:20: Route: Medical 00 IVP, Drug Center Form: INJ, Dosing Weight 102.273, kg, PRN, PRN Blood Glucose Results, Start date: 02/20/17 14:20:00 CDT, Duration: 30 day, Stop date: 03/22/17 14:19:00 CDT Glucagon No 1 mg, MH 02-20 Route: IM, [place] 19:20: Drug form: Medical 00 PDR/INJ, Center PRN, Dosing Weight 102.273, kg, PRN Blood Glucose Results, Start date: 02/20/17 14:20:00 CDT, Duration: 30 day, Stop date: 03/22/17 14:19:00 CDT Amlodipine No Notes: 02-20 (Same as: [place] 14:00: Norvasc) Medical [address] [place] [address] Docusate No Notes: Sodium 100 02-20 (Same as: [place] MG Oral 14:00: Colace) Medical Capsule 00 (Do Not Center Crush) Aspirin No Notes: 02-20 Take with [place] 14:00: food. Medical [address] [place] [address] sennosides, No Notes: HALFWAY 02-20 (Same as: [place] 14:00: Senokot) Medical [address] [place] [address] pantoprazol No 40 mg, PO, e 02-20 Daily, # [place] 08:29: 30 tab, 0 Medical 00 Refill(s) [place] metoprolol No Notes: tartrate 02-20 (Same as: [place] 02:00: Lopressor) Medical 00 Center Acetaminoph No Notes: Max MH en 02-19 acetaminop [place] 23:00: hen 4000 Medical 00 mg/day (4 Center gm/day). (Same as: Tylenol Extra Strength) heparin No Notes: 02-19 porcine [place] 21:00: heparin Medical 00 [place] tramadol No Notes: Not hydrochlori 02-19 to exceed [place] as de 50 MG 21:00: 400mg/day. Med ical Oral Tablet 00 (Same As: [address] [facility] Ultram) Insulin No 60 Lispro 02-19 units) [place] 18:01: WASTE: F/P Medical 00 - Black; E Center - Municipal Trash Bin Stable for 28 days at room temperatur e. Expires in days from ____Date Dextrose No 25 gm, 50 50% Syringe 02-19 mL, Route: [place] 18:01: IVP, Drug Medical 00 Form: INJ, Center Dosing Weight 102.273, kg, PRN, PRN Blood Glucose Results, Start date: 02/19/17 13:01:00 CDT, Duration: 30 day, Stop date: 03/21/17 13:00:00 CDT Glucagon No 1 mg, 02-19 Route: IM, [place] 18:01: Drug form: Medical 00 PDR/INJ, Center PRN, Dosing Weight 102.273, kg, PRN Blood Glucose Results, Start date: 02/19/17 13:01:00 CDT, Duration: 30 day, Stop date: 03/21/17 13:00:00 CDT Insulin Yes 50 unit, Glargine 02-19 SUB-Q, [place] 100 UNT/ML 18:00: QAM, 0 Medic al Injectable 00 Refill(s) Cent er Solution [Lantus] amLODIPine Yes 10 mg = 1 MH 10 mg oral 02-19 tab, PO, [place] tablet 18:00: Daily, # Medical 00 90 tab, 1 Center Refill(s) metoprolol 2017-0 Yes 50 mg = 1 tartrate 50 02-19 tab, PO, [place] mg oral 18:00: BID, # 180 Medi blanquita tablet 00 tab, 0 Center Refill(s) Hydralazine No Notes: 02-19 (Same as: [place] 17:20: Apresoline Medical ) Push Center over 5 minutes Lovenox No 30 mg, 02-19 Route: [place] 17:20: SUB-Q, Medical Drug form: Center INJ, Q12H, Dosing Weight 102.273, kg, Priority: STAT, Start date: 02/19/17 12:20:00 CDT, Duration: 30 day, Stop date: 03/21/17 9:00:00 CDT Oxycodone No Notes: Hydrochlori 02-19 (Same as: [place] as de 5 MG 17:19: Roxicodone Medi blanquita Oral Tablet 00 ) [place] Dilaudid No Notes: 02-19 Same as: [place] 16:28: Dilaudid Medical 00 Center NS (Bolus) No 1,000 mL, IV 02-19 1,000 [place] 16:23: ml/hr, Medical 00 Infuse Center Over: 1 hr, Route: IV, 1,000, Drug form: INJ, ONCE, Priority: STAT, Dosing Weight 102.273 kg, Start date: 02/19/17 11:23:00 CDT, Duration: 1 doses or times, Stop date: 02/19/17 11:23:00 CDT Morphine No Notes: 02-19 (Same [place] 15:22: as:MORPhin Medical 00 e Sulfate) [place] Zofran No Notes: 02-19 (Same as: [place] 15:22: Zofran) Medical 00 Center MEDICATION WASTE Product Size: 4 mg Product Wasted: ___ mg iodixanol No Notes: 02-19 (Same as: [place] 15:20: Visipaque) Medical 00 . WASTE: Center F/P - Black; E - Municipal Trash Bin Saline No Notes: Flush 0.9% 02-19 Same as: [place] 15:16: BD Medical 00 Posiflush Center Sterile tramadol Yes Special hydrochlori 5-27 [place] de 50 MG 21:19: ns: 1-2 Medica l Oral Tablet 14 tab PO Q6H Ce nter senna 8.6 Yes 8.6 mg = 1 MH mg oral 5-27 tab, PO, [place] tablet 21:19: Daily, 0 Medical 00 Refill(s) [place] POLYETHYLEN Yes PO, Daily, E GLYCOL 5-27 0 [place] 3350 21:19: Refill(s) Medical [place] Acetaminoph Yes Special en 325 MG / 5-27 [place] Hydrocodone 21:19: ns: not to Medical Bitartrate 00 exceed 8 Cente r 7.5 MG Oral tablets/da Tablet y [[place] 7.5/325] gabapentin Yes 600 mg = 2 M H 300 MG Oral 5-27 cap, PO, [place] Capsule 21:18: Q8H, # 120 Medi blanquita 56 cap, 0 Center Refill(s) PlasmaLyte No 1,000 mL, A PH-7.4 11-05 Rate: 100 [place] 1,000 mL 05:01: ml/hr, Medical Infuse Center over: 10 hr, Route: IV, Dosing Weight 84.091 kg, Total Volume: 1,000, Start date: 11/05/14 0:01:00, Duration: 30 day, Stop date: 12/05/14 0:00:00 Tums No Notes: 11-03 (Same As: [place] 18:00: Tum) Medical Calcium Center Carbonate 500 mg = 200 mg elemental calcium Dose = mg calcium carbonate ( mg elemental calcium) Neutra-Phos No Notes: 11-03 (Same as: [place] 14:00: Neutra-Johnnie Medical 00 s) Each Center 1.25 gm pkt has 250mg phosphorou s. Mag-Ox 400 No Notes: 11-03 (Same as: [place] 14:00: Mag-Ox Medical 00 400) [place] Magnesium oxide 515lf=633g g elemental magnesium Dose=____m g magnesium oxide (___mg elemental magnesium) Neutra-Phos No 1 pkt, 11-03 Route: PO, [place] 13:00: Dosing Medical 00 Weight Center 84.091, kg, BID-Meals, Start date: 11/03/14 8:00:00, Duration: 30 day, Stop date: 12/02/14 17:00:00 Morphine 2015-0 No 2 mg, 5-21 Route: [place] :50: IVP, Medical 00 Q5Min, Center Dosing Weight 84.091, kg, PRN Pain Score 4-6, Start date: 11/02/14 20:50:00, Duration: 5 doses or times, Stop date: Limited # of times Labetalol 2015-0 No 10 mg, 5-21 Route: [place] :50: IVP, Medical 00 Q5Min, Center Dosing Weight 84.091, kg, PRN Elevated BP, Start date: 11/02/14 20:50:00, Duration: 5 doses or times, Stop date: Limited # of times Ondansetron 2014-0 No 4 mg, 5-21 Route: [place] :50: IVP, ONCE, Dosing Center Weight 84.091, kg, PRN Nausea & Vomiting, Start date: 11/02/14 20:50:00 Naloxone 2015-0 No 0.04 mg, 5-21 Route: [place] :50: IVP, Medical 00 Q2MIN, Center Dosing Weight 84.091, kg, PRN Narcotic Reversal, Start date: 11/02/14 20:50:00, Duration: 8 doses or times, Stop date: Limited # of times Flumazenil 2014-0 No 0.2 mg, 5-21 Route: [place] :50: IVP, PRN, Medical Dosing Center Weight 84.091, kg, PRN Benzodiaze pine Reversal, Initial dose, Start date: 11/02/14 20:50:00, Duration: 30 day, Stop date: 12/02/14 20:49:00 Cefazolin 2014-0 No 2 gm, 5-21 Route: IV, [place] :03: ONCE, Medical 00 Dosing Center Weight 84.091, kg, Start date: 11/02/14 20:03:00, Duration: 1 doses or times, Stop date: 11/02/14 20:03:00 PlasmaLyte 2015-0 No 1,000 mL, A PH-7.4 5-20 Rate: 100 [place] 1,000 mL 05:01: ml/hr, Medical 00 Infuse Center over: 10 hr, Route: IV, Dosing Weight 84.091 kg, Total Volume: 1,000, Start date: 11/02/14 0:01:00, Duration: 30 day, Stop date: 12/02/14 0:00:00 Ancef + No Notes: Sodium -19 (Same As: [place] Chloride 20:00: Ancef, Medical 0.9% IV 100 00 Kefzol) Cente r mL Cefazolin FOR IV SET ONLY MEDICATION WASTE Product Size: 1000 mg Product Wasted: ___ mg sodium No 15 mmol, 5 MH phosphate + 5-19 mL, Route: [place] Sodium 17:02: IVPB, Medical Chloride 00 ONCE, [place] 0.9% IV 250 Dosing mL Weight 84.091, kg, Start date: 11/01/14 12:02:00, Stop date: 11/01/14 12:02:00 Magnesium No 2 gm, 50 MH Sulfate 5-19 mL, Route: [place] 15:00: IVPB, Drug Medical 00 form: INJ, Center Q2H, Dosing Weight 84.091, kg, Total dose = 4 gm, Start date: 11/01/14 10:00:00, Stop date: 11/01/14 13:59:00 sennosides, No 1 tab, HALFWAY 11-01 Route: PO, [place] 14:00: Drug Form: Medical 00 TAB, Center Dosing Weight 84.091, kg, Daily, Start date: 11/01/14 9:00:00, Duration: 30 day, Stop date: 11/30/14 9:00:00 Bisacodyl No Notes: -19 (Same As: [place] 13:22: Dulcolax, [facility] 00 [place]-Lax) [place] Acetaminoph No Notes: en 325 MG / 11-01 Same as [place] Hydrocodone 04:00: [place] Medic al Bitartrate 00 325-7.5mg Cent er 7.5 MG Oral Do not Tablet exceed [[place] 4gm/day of 7.5/325] acetaminop hen. Acetaminoph No Notes: en 325 MG / 18 Same as [place] Hydrocodone 21:49: [place] Medic al Bitartrate 00 325-7.5mg Cent er 7.5 MG Oral Do not Tablet exceed [[place] 4gm/day of 7.5/325] acetaminop hen. magnesium No 2 gm, 50 MH sulfate 5-18 mL, Route: [place] 21:46: IVPB, Drug Medical form: INJ, Center ONCE, Dosing Weight 84.091, kg, Total dose = 4 gm, Start date: 10/31/14 16:46:00, Stop date: 10/31/14 16:46:00 Magnesium No 2 gm, 50 MH Sulfate 5-18 mL, Route: [place] 15:00: IVPB, Drug Medical form: INJ, Center Q2H, Dosing Weight 84.091, kg, Total dose = 4 gm, Start date: 10/31/14 10:00:00, Stop date: 10/31/14 13:59:00 Ondansetron No Notes: 10-31 (Same as: [place] 14:02: Zofran) Medical 00 Center MEDICATION WASTE Product Size: 4 mg Product Wasted: ___ mg Naloxone No Notes: 18 Same as [place] 14:02: Narcan Medical [address] [place] [address] Hydromorpho No Notes: ne 10-31 Same as: [place] 14:02: Dilaudid Medical 00 [place] Flumazenil No Notes: 10-31 (Same as: 14:02: Romazicon) Medical 00 [place] Meperidine No 12.5 mg, 18 Route: [place] 14:: IVP, Medical 00 Q30Min, Center Dosing Weight 84.091, kg, PRN Other -See Comment, For shivering, Start date: 10/31/14 9:02:00, Duration: 2 doses or times, Stop date: Limited # of times Labetalol No 10 mg, 18 Route: [place] 14:02: IVP, Medical 00 Q5Min, Center Dosing Weight 84.091, kg, PRN Elevated BP, Start date: 10/31/14 9:02:00, Duration: 5 doses or times, Stop date: Limited # of times esmolol No 10 mg, 5-18 Route: [place] 14:02: IVP, Medical 00 Q5Min, Center Dosing Weight 84.091, kg, PRN Other -See Comment, Start date: 10/31/14 9:02:00, Duration: 5 doses or times, Stop date: Limited # of times Hydralazine No Notes: -18 (Same as: [place] 14:02: Apresoline Medical ) Push Center over 5 minutes micafungin No Notes: 5-18 Same as [place] 14:00: Mycamine Medical Protect Center from light MEDICATION WASTE Product Size: 100 mg Product Wasted: ___ mg sodium No 30 mmol, phosphate + 10-31 10 mL, [place] Sodium 13:35: Route: Medical Chloride 00 IVPB, Center 0.9% IV 250 ONCE, mL Dosing Weight 84.091, kg, Start date: 10/31/14 8:35:00, Stop date: 10/31/14 8:35:00 Calcium No 2,000 mg, Gluconate 18 20 mL, [place] 13:34: Route: Medical 00 IVPB, Center ONCE, Dosing Weight 84.091, kg, Start date: 10/31/14 8:34:00, Stop date: 10/31/14 8:34:00 sennosides, No Notes: HALFWAY 5-17 (Same as: [place] 22:00: Senokot) Medical 00 Center Vancomycin No 2000 mg: MH 5-17 infuse [place] 19:00: over 2.5 Medical 00 hours Center MEDICATION WASTE Product Size: 1000 mg Product Wasted: ___ mg Bisacodyl No Notes: MH 5-17 (Same As: [place] 18:54: Dulcolax, Medical 00 [place]-Lax) Center Magnesium No 2 gm, 50 MH Sulfate 5-17 mL, Route: [place] 15:00: IVPB, Drug Medical 00 form: INJ, Center Q2H, Dosing Weight 84.091, kg, Total dose = 4 gm, Start date: 10/30/14 10:00:00, Stop date: 10/30/14 13:59:00 Calcium 2014- No 1,000 mg, Gluconate 5-17 10 mL, [place] 14:45: Route: Medical 00 IVPB, Center ONCE, Dosing Weight 84.091, kg, Start date: 10/30/14 9:45:00, Stop date: 10/30/14 9:45:00 sodium No 15 mmol, 5 phosphate + 5-17 mL, Route: [place] Sodium 14:44: IVPB, Medical Chloride 00 ONCE, [place] 0.9% IV 250 Dosing mL Weight 84.091, kg, Start date: 10/30/14 9:44:00, Stop date: 10/30/14 9:44:00 PlasmaLyte No 1,000 mL, A PH-7.4 10-30 Rate: 100 [place] 1,000 mL 05:01: ml/hr, Medical 00 Infuse Center over: 10 hr, Route: IV, Dosing Weight 84.091 kg, Total Volume: 1,000, Start date: 10/30/14 0:01:00, Duration: 30 day, Stop date: 11/29/14 0:00:00 Lantus No Notes: MH 5-16 Same as [place] 14:00: Lantus Medical 00 [facility] PEN Do not hold insulin without contacting prescriber "single patient use only" Stable for 28 days at room temperatur e. Expires in days from ____Date ferrous No Notes: MH sulfate 5-16 Give with [place] 14:00: food. "Do Medical 00 Not Crush" [place] Aspirin No Notes: MH 5-16 Take with [place] 14:00: food. Medical 00 Center Docusate No Notes: MH Sodium 100 5-16 (Same as: [place] MG Oral 14:00: Colace) Medical Capsule 00 (Do Not Center [Colace] Crush) Miralax No Notes: MH 5-16 Dissolve [place] 14:00: in 8 oz of Medical 00 water or [place] juice. (Same as: Miralax) quinapril No 40 mg, MH 5-16 Route: PO, [place] 14:00: Drug form: Medical 00 TAB, Center Daily, Dosing Weight 84.091, kg, Start date: 10/29/14 9:00:00, Duration: 30 day, Stop date: 11/27/14 9:00:00 Altace No Notes: 5-16 (Same [place] 14:00: as:Altace) Medical 00 Center Dextrose No 12.5 gm, 50% Syringe -16 Route: [place] 06:24: IVP, Medical 00 Dosing Center Weight 84.091, kg, ONCE, Start date: 10/29/14 1:24:00, Stop date: 10/29/14 1:24:00 Ondansetron No Notes: 5-16 (Same as: [place] 06:12: Zofran) Medical 00 Center MEDICATION WASTE Product Size: 4 mg Product Wasted: ___ mg Naloxone No Notes: 5-16 Same as [place] 05:44: Narcan Medical 00 [place] Metoprolol No Notes: 5-16 (Same as: [place] 05:44: Lopressor) Medical 00 Push over Center 2 minutes Hydromorpho No Notes: ne 5-16 Same as: [place] 05:44: Dilaudid Medical 00 [place] Flumazenil No Notes: 5-16 (Same as: [place] 05:44: Romazicon) Medical 00 [place] Acetaminoph No Notes: en 325 MG / 5-16 (Same as: [place] as Hydrocodone 05:41: [place] Medic al Bitartrate 00 325/5) Center 5 MG Oral Tablet [[place] 5/325] gabapentin No Notes: 600 MG Oral 5-16 (Same as: [place] as Tablet 05:00: Neurontin) Medic al 00 Center Acetaminoph No Notes: en 325 MG / 5-16 (Same as: [place] as Hydrocodone 05:00: [place] Medic al Bitartrate 00 325/5) Do [address] 5 MG Oral not exceed Tablet 4gm/day of [[place] acetaminop 5/325] hen. Tramadol No Notes: Not 5-16 to exceed [place] 05:00: 400mg/day. Medical 00 (Same As: Center Ultram) Flagyl No Notes: 5-16 (Same as: [place] 02:00: Flagyl) Medical 00 Avoid Center alcohol. cefepime No Notes: 5-16 (Same As: [place] 02:00: Maxipime) Medical 00 Center MEDICATION WASTE Product Size: 1000 mg Product Wasted: ___ mg Vancomycin No 2000 mg: 16 infuse [place] 02:00: over 2.5 Medical 00 hours Center MEDICATION WASTE Product Size: 1000 mg Product Wasted: ___ mg atorvastati No Notes: n -16 (Same As: [place] 02:00: Lipitor) Medical 00 Center Enoxaparin No Notes: 5-16 (Same as: [place] 02:00: Lovenox) Medical 00 Center metoprolol No Notes: tartrate -16 (Same as: [place] 02:00: Lopressor) Medical 00 Center Dilaudid No Notes: -16 (Same as: [place] 01:47: Dilaudid) Medical 00 Center D5W 1/2NS + No Notes: KCL 20mEq/L 10-29 PREMIX IV [place] 1000ml 01:37: - Do Not Medical (Premix) 00 Alter Center 1000 mL PlasmaLyte No 1,000 mL, A PH-7.4 10-29 Rate: 125 [place] 1000 mL 01:35: ml/hr, Medical 00 Infuse Center over: 8 hr, Route: IV, Dosing Weight 84.091 kg, Total Volume: 1,000, Start date: 10/28/14 20:35:00, Duration: 30 day, Stop date: 11/27/14 20:34:00 Insulin No 60 regular 5-16 units) [place] 01:35: Stable for Medical 00 28 days at Center room temperatur e Expires in days from ____Date Dextrose No 12.5 gm, 50% Syringe 10-29 Route: [place] 01:29: IVP, Medical 00 Dosing Center Weight 84.091, kg, ONCE, STAT, Start date: 10/28/14 20:29:00, Stop date: 10/28/14 20:29:00 D5NS 1000 No 1,000 mL, mL 10-29 Rate: 100 [place] 01:11: ml/hr, Medical 00 Infuse Center over: 10 hr, Route: IV, Dosing Weight 84.091 kg, Total Volume: 1,000, Start date: 10/28/14 20:11:00, Duration: 30 day, Stop date: 11/27/14 20:10:00 Dilaudid No Notes: 10-28 Same as: [place] 23:23: Dilaudid Medical 00 [place] Epinephrine No 1 ml, 0.01 MG/ML 10-28 Route: [place] / Lidocaine 23:22: SUB-Q, Medi [place] Hydrochlori 00 Drug Form: Ce nter de 10 MG/ML SOLN, Injectable Dosing Solution Weight 84.091, kg, ONCE, STAT, Start date: 10/28/14 18:22:00, Stop date: 10/28/14 18:22:00 Iohexol No Special 10-28 In[facility] [place] 22:32: ns: Dose = Medical 00 2.2ml/kg, Center Max dose = 100ml -- "To be infused by Radiology Staff ONLY" senna 8.6 Yes Special MH mg oral 06 In[facility] [place] tablet 20:02: ns: with Medical 00 plenty of Center water cephalexin Yes Special 500 mg oral 06 [place] capsule 20:02: ns: take Medica l 00 for the Center next 5 days metoprolol Yes 25 mg = 1 MH tartrate 25 -06 tab, PO, [place] mg oral 20:02: Q12H, 0 Medical tablet 00 Refill(s) [place] Acetaminoph Yes Special en 325 MG / 506 [place] Hydrocodone 20:02: ns: 1-2 Med ical Bitartrate 00 tab PO Center 5 MG Oral Q4-6H prn Tablet pain not [[place] to exceed 5/325] 8 tablets/da y Neutra-Phos No Notes: 5-06 (Same as: [place] 12:30: Neutra-Johnnie Medical 00 s) Each Center 1.25 gm pkt has 250mg phosphorou s. Mix w/2.5oz water and stir. Keflex No Notes: 10-18 Take on [place] 19:00: empty Medical 00 stomach. Center (Same As: Keflex) Ancef + No Notes: Sodium 10-18 (Same As: [place] Chloride 01:00: Ancef, Medical 0.9% IV 100 00 Kefzol) Cente r mL Cefazolin FOR IV SET ONLY MEDICATION WASTE Product Size: 1000 mg Product Wasted: ___ mg Insulin, No Notes: Aspart, 10-17 Roll in [place] Human 19:49: palms of Medical 00 hands Center gently; Do not shake vigorously . (Same as: NovoLOG) "single patient use only" Stable for 28 days at room temperatur e. Expires in days from ____Date Dextrose No 25 gm, 50 50% Syringe 10-17 mL, Route: [place] 19:49: IVP, Drug Medical Form: INJ, Center Dosing Weight 86.364, kg, PRN, PRN Blood Glucose Results, Start date: 10/17/14 14:49:00, Duration: 30 day, Stop date: 11/16/14 14:48:00 Glucagon No 1 mg, 10-17 Route: IM, [place] 19:49: Drug form: Medical 00 PDR/INJ, Center PRN, Dosing Weight 86.364, kg, PRN Blood Glucose Results, Start date: 10/17/14 14:49:00, Duration: 30 day, Stop date: 11/16/14 14:48:00 Neutra-Phos No Notes: 10-17 (Same as: [place] 14:01: Neutra-Johnnie Medical 00 s) Each Center 1.25 gm pkt has 250mg phosphorou s. Mix w/2.5oz water and stir. celecoxib No Notes: 10-16 NSAID. [place] 22:00: Please Medical 00 check Center indication . Not for seizure. (Same As: CeleBREX ) tramadol No 2 tab, hydrochlori 10-16 Route: PO, [place] de 50 MG 17:00: Drug form: Med ical Oral Tablet 00 TAB, Q6H, [address] ter Dosing Weight 86.364, kg, Start date: 10/16/14 12:00:00, Duration: 30 day, Stop date: 11/15/14 6:00:00 ketOROLAC No 4 days MH 30 mg/mL 10-16 [place] injectable 16:09: MEDICATION M edical solution 00 WASTE Center Product Size: 30 mg Product Wasted: ___ mg potassium No Notes: phosphate + 10-16 (Same as: [place] as Sodium 14:26: K Medical Chloride 00 Phosphate. Cente r 0.9% IV 250 ) 1 mMol mL phoshate has 1.47 mEq potassium Infuse over 4 hours Vancomycin No 2000 mg: MH 10-16 infuse [place] 13:00: over 2.5 Medical 00 hours [place] metoprolol No Notes: tartrate 10-16 (Same as: [place] 02:00: Lopressor) Medical 00 [place] Dilaudid No Notes: MH 10-15 Same as: [place] 23:15: Dilaudid Medical 00 [place] Dilaudid No Notes: 10-15 Same as: [place] 20:18: Dilaudid Medical 00 [place] Insulin No Notes: Glargine 10-15 Same as [place] 15:38: Lantus Medical 00 Solostar [place] PEN Do not hold insulin without contacting prescriber "single patient use only" Stable for 28 days at room temperatur e. Expires in days from ____Date vancomycin No 2000 mg: MH 10-15 infuse [place] 04:00: over 2.5 Medical 00 hours [place] senna 8.6 No Notes: MH mg oral 10-14 (Same as: [place] tablet 22:00: Senokot) Medical 00 [place] ketOROLAC No 4 days. MH 15 mg/mL 10-14 [place] injectable 05:00: Medical solution 00 [place] vancomycin No 2000 mg: MH 10-14 infuse [place] 04:00: over 2.5 Medical 00 hours [place] MEDICATION WASTE Product Size: 1000 mg Product Wasted: _0__ mg atorvastati No Notes: n 5-01 (Same As: [place] 02:00: Lipitor) Medical 00 [place] Acetaminoph No Notes: en 325 MG / 4-30 (Same as: [place] as Hydrocodone 21:27: [place] Medic al Bitartrate 00 325/5) Do [address] 5 MG Oral not exceed Tablet 4gm/day of [[place] acetaminop 5/325] hen. bupivacaine No Notes: liposome 4-30 (Same as: [place] 14:10: Exparel) Medical 00 NOT Center FOR IV use Postoperat sania analgesia: Infiltrati on (local): Dose is based on surgical site and volume required to cover the area (in general, the maximum total dose is 266 mg). Bunionecto my: 7 mL into the tissues surroundin g the osteotomy and 1 mL into the subcutaneo us tissue of the surgical site (total dose = 8 mL [106 mg]) Hemorrhoid ectomy: 30 mL (20 mL vial diluted with 10 mL NS) divided and administer ed as 6 injections of 5 mL each (total dose = 30 mL [266 mg]) quinapril No 40 mg, 10-13 Route: PO, [place] 14:00: Drug form: Medical 00 TAB, Center Daily, Dosing Weight 86.364, kg, Start date: 10/13/14 9:00:00, Duration: 30 day, Stop date: 11/11/14 9:00:00 ferrous No Notes: sulfate 4-30 Give with [place] 14:00: food. "Do Medical 00 Not Crush" [place] Docusate No Notes: Sodium 100 -30 (Same as: [place] MG Oral 14:00: Colace) Medical Capsule 00 (Do Not Center [Colace] Crush) Vancomycin No 2000 mg: 6.67 MG/ML -30 infuse [place] Injectable 14:00: over 2.5 Med ical Solution 00 hours Center MEDICATION WASTE Product Size: 1000 mg Product Wasted: ___ mg Altace No Notes: 4-30 (Same [place] 14:00: as:Altace) Medical [address] [place] [address] Promethazin No Notes: Do M H e -30 not give [place] 13:34: IV push. Medical 00 (Same as: Center Phenergan) Ondansetron No Notes: 4-30 (Same as: [place] 13:34: Zofran) Medical 00 Center MEDICATION WASTE Product Size: 4 mg Product Wasted: ___ mg Naloxone No Notes: 4-30 (Same as: [place] 13:34: Narcan) Medical 00 Center Flumazenil No Notes: 4-30 (Same as: [place] 13:34: Romazicon) Medical 00 Center Hydromorpho No Notes: ne 4-30 Same as: [place] 13:34: Dilaudid Medical 00 Center Labetalol No 10 mg, 2 MH 4-30 mL, Route: [place] 13:34: IVP, Drug Medical 00 form: INJ, Center Q5Min, Dosing Weight 86.364, kg, PRN Elevated BP, Start date: 10/13/14 8:34:00, Duration: 5 doses or times, Stop date: 10/14/14 0:00:00 Hydralazine No Notes: 4-30 (Same as: [place] 13:34: Apresoline Medical 00 ) Push Center over 5 minutes gabapentin No Notes: 300 MG Oral 4-30 (Same as: [place] as Capsule 13:00: Neurontin) Medi blanquita 00 Center tramadol No Notes: hydrochlori 4-30 (Same As: [place] as de 50 MG 11:00: Ultram) Medica l Oral Tablet 00 Center Acetaminoph No Notes: en 325 MG / 4-30 (Same as: [place] as Hydrocodone 11:00: [place] Medic al Bitartrate 00 325/10) Center 10 MG Oral Tablet [[place] 10/325] Insulin, No Notes: Aspart, 4-30 Roll in [place] Human 10:21: palms of Medical 00 hands Center gently; Do not shake vigorously . (Same as: NovoLOG) "single patient use only" Stable for 28 days at room temperatur e. Expires in days from ____Date Dextrose No 12.5 gm, 50% Syringe 30 25 mL, [place] 10:21: Route: Medical 00 IVP, Drug Center Form: INJ, Dosing Weight 86.364, kg, PRN, PRN Blood Glucose Results, Start date: 10/13/14 5:21:00, Duration: 30 day, Stop date: 11/12/14 5:20:00 Glucagon No 1 mg, 10-13 Route: IM, [place] 10:21: Drug form: Medical 00 PDR/INJ, Center PRN, Dosing Weight 86.364, kg, PRN Blood Glucose Results, Start date: 10/13/14 5:21:00, Duration: 30 day, Stop date: 11/12/14 5:20:00 Enoxaparin No Notes: 10-13 (Same as: [place] 10:00: Lovenox) Medical 00 [place] cefepime No Notes: 10-13 (Same As: [place] 09:34: Maxipime) Medical 00 Center MEDICATION WASTE Product Size: 1000 mg Product Wasted: ___ mg Insulin No 60 regular 4-30 units) [place] 09:33: Stable for Medical 00 28 days at Center room temperatur e Expires in days from ____Date Saline No Notes: Flush 0.9% 10-13 (Same as: [place] rosales 09:33: BD Medical 00 Posiflush) [place] Dilaudid No Notes: 30 Same as: [place] 09:27: Dilaudid Medical 00 [place] Sodium No 250 mL, Chloride 10-13 Rate: On [place] 0.9% 07:44: call for Medical (titrate) 00 use with [place] 250 mL blood product administra tion, Dosing Weight 86.364, kg, Route: IV, Total Volume: 250, Start Date: 10/13/14 2:44:00, Duration: 1 day, Stop date: 10/14/14 2:43:00, Replace Every: 24 hr Iohexol No Special 430 Instructio [place] 06:46: ns: Weight Medical 00 = 75 - Center 94kg -- "To be infused by Radiology Staff ONLY" Dilaudid No Notes: 10-13 Same as: [place] 06:36: Dilaudid Medical 00 [place] Sodium No 1,000 mL, Chloride 10-13 1,000 [place] 0.154 05:25: ml/hr, Medical MEQ/ML 00 Infuse Center Injectable Over: 1 Solution hr, Route: IV, 1,000, Drug form: INJ, ONCE, Priority: STAT, Dosing Weight 86.364 kg, Start date: 10/13/14 0:25:00, Duration: 1 doses or times, Stop date: 10/13/14 0:25:00 Maxipime No Notes: 10-13 (Same As: [place] 05:00: [facility]) Medical 00 Center MEDICATION WASTE Product Size: 1000 mg Product Wasted: _0__ mg tramadol Yes 100 mg = 2 hydrochlori 4-27 tab, PO, [place] de 50 MG 22:57: Q6H, # 90 Medi blanquita Oral Tablet 00 tab, 1 Center Refill(s) Acetaminoph Yes 1 tab, PO, en 325 MG / 4-27 Q6H, # 60 [place] as Hydrocodone 22:57: tab, 0 Medi blan[place]ita Bitartrate 00 Refill(s), [address] ter 10 MG Oral given to Tablet patient [[place] 10/325] Yes 0.8 mg = 1 Multivitami 4-27 tab, PO, [place] ns with 22:57: Daily, # Medica l Folic Acid 00 60 tab, 0 Cent er 0.8 mg oral Refill(s), tablet given to patient insulin Yes 40 unit, glargine 4-27 SUB-Q, [place] 100 22:57: QAM, # 10 Medical units/mL 00 mL, 0 [place] subcutaneou Refill(s) s solution gabapentin Yes 600 mg = 2 M H 300 MG Oral 4-27 cap, PO, [place] Capsule 22:57: Q8H, # 120 Medi blanquita 00 cap, 0 Center Refill(s) ferrous Yes 325 mg = 1 sulfate 325 4-27 tab, PO, [place] mg oral 22:57: TID, # 90 Medic al enteric 00 tab, 0 Center coated Refill(s) tablet Docusate Yes Special Sodium 100 27 Instructio [place] as MG Oral 22:57: ns: take Medica l Capsule 00 twice Center [Colace] daily while taking [place] or tramadol for pain Metformin Yes 1,000 mg = hydrochlori 27 1 tab, PO, [place] de 1000 MG 22:57: BID, # 60 [place] dical Oral Tablet 00 tab, 0 Center Refill(s) Acetaminoph No Notes: Do M H en 325 MG / -27 not exceed [place] Hydrocodone 17:00: 4gm/day of Medical Bitartrate [address] 10 MG Oral hen. Tablet (Same as: [[place] 10/325] 325/10) Acetaminoph No Notes: en 325 MG / -27 (Same as: [place] as Hydrocodone 13:41: [place] Medic al Bitartrate 00 325/5) Do [address] [facility] 5 MG Oral not exceed Tablet 4gm/day of [[place] acetaminop 5/325] hen. Acetaminoph No Notes: Do M H en 325 MG / 4-26 not exceed [place] Hydrocodone 17:00: 4gm/day of Medical Bitartrate [address] 10 MG Oral hen. Tablet (Same as: [[place] 10/325] 325/10) Acetaminoph No Notes: Do M H en 325 MG / 4-26 not exceed [place] Hydrocodone 15:01: 4gm/day of Medical Bitartrate [address] 10 MG Oral hen. Tablet (Same as: [[place] 10/325] 325/10) Insulin, No Notes: Aspart, 10-05 Roll in [place] Human 16:30: palms of [facility] 00 hands Center gently; Do not shake vigorously . (Same as: NovoLOG) "single patient use only" Stable for 28 days at room temperatur e. Expires in days from ____Date Magnesium No Notes: Oxide 10-05 (Same as: [place] 13:28: Mag-Ox Medical 00 400) Center Magnesium oxide [id number] g elemental magnesium Dose=____m g magnesium oxide (___mg elemental magnesium) Milk of No 60 ml, Magnesia 10-05 Route: PO, [place] 13:26: Drug Form: Medical 00 SUSP, Center Dosing Weight 88.636, kg, ONCE, Start date: 10/05/14 8:26:00, Stop date: 10/05/14 8:26:00 sodium No 15 mmol, 5 phosphate + 4-22 mL, Route: [place] Sodium 13:25: IVPB, PRN, Medic al Chloride 00 Dosing Center 0.9% IV 250 Weight mL 88.636, kg, PRN Abnormal Lab Result, Start date: 10/05/14 8:25:00, Duration: 30 day, Stop date: 11/04/14 8:24:00 Insulin, No Notes: Aspart, 10-05 Roll in [place] Human 12:30: [place] [id number] hands Center gently; Do not shake vigorously . (Same as: NovoLOG) "single patient use only" Stable for 28 days at room temperatur e. Expires in days from ____Date Oxycodone No Notes: Hydrochlori 4-21 (Same as: [place] as de 5 MG 23:00: Roxicodone Medi blanquita Oral Tablet 00 ) Center Acetaminoph No Notes: . en -21 (Same as: [place] 23:00: Tylenol [facility] 00 Extra Center Strength) Insulin, No Notes: Aspart, 4- Roll in [place] Human 21:30: palms [place] [address] hands Center gently; Do not shake vigorously . (Same as: NovoLOG) "single patient use only" Stable for 28 days at room temperatur e. Expires in days from ____Date Oxycodone No Notes: Hydrochlori 4-21 (Same as: [place] as de 5 MG 20:23: Roxicodone Medi blanquita Oral Tablet 00 ) Center Oxycodone No Notes: Hydrochlori 4-21 (Same as: [place] as de 5 MG 20:22: Roxicodone Medi blanquita Oral Tablet 00 ) [place] quinapril No 40 mg, 10-04 Route: PO, [place] 14:00: Drug form: Medical 00 TAB, Center Daily, Dosing Weight 88.636, kg, Start date: 10/04/14 9:00:00, Duration: 30 day, Stop date: 11/02/14 9:00:00 Altace No Notes: 10-04 (Same [place] 14:00: as:Altace) [place] [address] Center atorvastati No Notes: n 10-04 (Same As: [place] 02:00: Lipitor) [place] [address] Center Neutra-Phos No Notes: 10-03 (Same as: [place] 21:30: Neutra-Johnnie [facility] 00 s) Each Center 1.25 gm pkt has 250mg phosphorou s. Mix w/2.5oz water and stir. Dulcolax No Notes: Laxative 10-03 (Same As: [place] 19:42: Dulcolax, [facility] [place]-Lax) [place] Insulin, No Notes: Aspart, 10-03 Roll in [place] Human 12:30: palms of [place] [address] hands Center gently; Do not shake vigorously . (Same as: NovoLOG) "single patient use only" Stable for 28 days at room temperatur e. Expires in days from ____Date Insulin, No Notes: Aspart, 10-02 Roll in [place] Human 22:26: palms of [place] [address] hands Center gently; Do not shake vigorously . (Same as: NovoLOG) "single patient use only" Stable for 28 days at room temperatur e. Expires in days from ____Date Insulin, No 7 unit, Aspart, 10-02 Route: [place] Human 12:30: SUB-Q, Medical Drug form: Center SOLN, TID-Before Meals, Dosing Weight 88.636, kg, Start date: 10/02/14 7:30:00, Duration: 30 day, Stop date: 05/18/15 16:30:00 Insulin, No Notes: Aspart, 4-18 Roll in [place] Human 22:08: [facility] 00 hands Center gently; Do not shake vigorously . (Same as: NovoLOG) "single patient use only" Stable for 28 days at room temperatur e. Expires in days from ____Date Dilaudid No Notes: 4-18 Same as: [place] 15:01: Dilaudid Medical Center Dilaudid No Notes: 4-18 Same as: [place] 07:32: Dilaudid Medical 00 Center Fentanyl No Notes: 4-18 (Same as: [place] 01:01: Sublimaze) Medical Preservat Center sania free. Hydromorpho No Notes: ne 4-18 Same as: [place] 01:01: Dilaudid Medical Center Ondansetron No Notes: 4-18 (Same as: [place] 01:: Zofran) Medical 00 Center MEDICATION WASTE Product Size: 4 mg Product Wasted: ___ mg Flumazenil No Notes: 4-18 (Same as: [place] 01:01: Romazicon) Medical Center Naloxone No Notes: 4-18 Same as [place] 01:01: Narcan Medical 00 Center Hydralazine No Notes: 4-18 (Same as: [place] 01:01: Apresoline Medical ) Push Center over 5 minutes Labetalol No 10 mg, 2 -18 mL, Route: [place] 01:01: IVP, Drug Medical 00 form: INJ, Center Q5Min, Dosing Weight 88.636, kg, PRN Elevated BP, Start date: 09/30/14 20:01:00, Duration: 5 doses or times, Stop date: Limited # of times Metoprolol No Notes: 4-18 (Same as: [place] 01:: Lopressor) Medical 00 Push over Center 2 minutes bupivacaine No Notes: liposome 4-17 (Same as: [place] 22:00: Exparel) Medical 00 NOT Center FOR IV use Postoperat sania analgesia: Infiltrati on (local): Dose is based on surgical site and volume required to cover the area (in general, the maximum total dose is 266 mg). Bunionecto my: 7 mL into the tissues surroundin g the osteotomy and 1 mL into the subcutaneo us tissue of the surgical site (total dose = 8 mL [106 mg]) Hemorrhoid ectomy: 30 mL (20 mL vial diluted with 10 mL NS) divided and administer ed as 6 injections of 5 mL each (total dose = 30 mL [266 mg]) Insulin, No Notes: Aspart, 09-30 Roll in [place] Human 16:30: palms of [place] [address] hands Center gently; Do not shake vigorously . (Same as: NovoLOG) "single patient use only" Stable for 28 days at room temperatur e. Expires in days from ____Date PlasmaLyte No 1,000 mL, A PH-7.4 09-30 Rate: 70 [place] 1,000 mL 05:01: ml/hr, [place] [address] Infuse Center over: 14.3 hr, Route: IV, Dosing Weight 88.636 kg, Total Volume: 1,000, Start date: 09/30/14 0:01:00, Stop date: 10/02/14 0:00:00 gabapentin No Notes: 300 MG Oral 09-30 (Same as: [place] as Capsule 05:00: Neurontin) [place] [address] Center Acetaminoph No Notes: Do M H en 325 MG / 09-30 not exceed [place] Hydrocodone 05:00: 4gm/day of Medical Bitartrate [address] 10 MG Oral hen. Tablet (Same as: [[place] 10/325] 325/10) Zosyn No Notes: -17 (Same as: [place] 03:00: Zosyn) [place] [address] Dosing Center based on Piperacill in component MEDICATION WASTE Product Size: 3375 mg Product Wasted: ___ mg PlasmaLyte No 1,000 mL, A PH-7.4 09-29 Rate: 100 [place] 1,000 mL 22:21: ml/hr, Medical 00 Infuse Center over: 10 hr, Route: IV, Dosing Weight 88.636 kg, Total Volume: 1,000, bolus 500ml Plasmalyte after patient returns from CT scan, then run infusion at 100ml/h, Priority: Within 4 hours, Start date: 09/29/14 17:21:00, D... Valium No Notes: 16 (Same as: [place] 21:52: Valium) Medical 00 Center Lantus No Notes: 16 Same as [place] 14:00: Lantus Medical 00 Solostar Center PEN Do not hold insulin without contacting prescriber "single patient use only" Stable for 28 days at room temperatur e. Expires in days from ____Date insulin No Notes: detemir 09-29 Same as [place] 02:00: Levemir Do [facility] 00 not hold Center insulin without contacting prescriber "single patient use only" Albuterol No Notes: 0.833 MG/ML 09-29 (Same as: [place] as / 01:56: Duoneb) Medical Ipratropium 00 Center [place] 0.167 MG/ML Inhalant Solution [DuoNeb] Lidocaine No Notes: Hydrochlori 09-29 Apply only [place] de 0.05 01:13: once for Medica l MG/MG 00 up to 12 Center Transdermal hours in a Patch 24-hour [Lidoderm] period (12 hours on and 12 hours off). (Same as: Lidoderm) "Remove old patch before applicatio n of new patch" Acetaminoph No Notes: Do M H en 325 MG / 09-29 not exceed [place] Hydrocodone 01:01: 4gm/day of Medical Bitartrate [address] 10 MG Oral hen. Tablet (Same as: [[place] 10/325] 325/10) Metformin No Notes: hydrochlori 09-28 (Same as: [place] as de 500 MG 22:00: Glucophage Me dical Oral Tablet 00 ) Take Cente r with meal Insulin, No Notes: Aspart, 09-28 Roll in [place] Human 21:00: palms of Medical 00 hands Center gently; Do not shake vigorously . (Same as: NovoLOG) "single patient use only" Stable for 28 days at room temperatur e. Expires in days from ____Date Insulin, No Notes: Aspart, 4-15 Roll in [place] Human 18:46: palms of Medical 00 hands Center gently; Do not shake vigorously . (Same as: NovoLOG) "single patient use only" Stable for 28 days at room temperatur e. Expires in days from ____Date Glucagon No 1 mg, MH 4-15 Route: IM, [place] 18:46: Drug form: Medical 00 PDR/INJ, Center PRN, Dosing Weight 88.636, kg, PRN Blood Glucose Results, Start date: 09/28/14 13:46:00, Duration: 30 day, Stop date: 10/28/14 13:45:00 Dextrose No 25 gm, 50 MH 50% Syringe 4-15 mL, Route: [place] 18:46: IVP, Drug Medical 00 Form: INJ, Center Dosing Weight 88.636, kg, PRN, PRN Blood Glucose Results, Start date: 09/28/14 13:46:00, Duration: 30 day, Stop date: 10/28/14 13:45:00 Insulin, No Notes: Aspart, 4-15 Roll in [place] Human 17:16: palms of Medical 00 hands Center gently; Do not shake vigorously . (Same as: NovoLOG) "single patient use only" Stable for 28 days at room temperatur e. Expires in days from ____Date Propranolol No Notes: MH 4-15 Give with [place] 02:00: food. Medical 00 (Same as: Center Inderal) remove No Notes: patch 4-14 Remove [place] 21:00: patch 12 Medical 00 hours Center after applicatio n each day. Neutra-Phos No Notes: MH 4-14 (Same as: [place] 15:30: Neutra-Johnnie Medical 00 s) Each Center 1.25 gm pkt has 250mg phosphorou s. Mix w/2.5oz water and stir. Insulin, No Notes: Aspart, - Roll in [place] Human 00:19: palms of Medical 00 hands Center gently; Do not shake vigorously . (Same as: NovoLOG) "single patient use only" Stable for 28 days at room temperatur e. Expires in days from ____Date Dextrose No 12.5 gm, 50% Syringe 09-27 25 mL, [place] 00:19: Route: Medical 00 IVP, Drug Center Form: INJ, Dosing Weight 88.636, kg, PRN, PRN Blood Glucose Results, Start date: 09/26/14 19:19:00, Duration: 30 day, Stop date: 10/26/14 19:18:00 Glucagon No 1 mg, 14 Route: IM, [place] 00:19: Drug form: Medical 00 PDR/INJ, Center PRN, Dosing Weight 88.636, kg, PRN Blood Glucose Results, Start date: 09/26/14 19:19:00, Duration: 30 day, Stop date: 10/26/14 19:18:00 Acetaminoph No Notes: en 325 MG / 09-26 (Same as: [place] as Hydrocodone 17:00: [place] Medic al Bitartrate 00 325/5) Do [address] [facility] 5 MG Oral not exceed Tablet 4gm/day of [[place] acetaminop 5/325] hen. Propranolol No Notes: 09-26 Give with [place] 16:30: food. Medical 00 (Same as: [place] Inderal) PlasmaLyte No 1,000 mL, A PH-7.4 09-26 Rate: [place] 1,000 mL 16:04: 1,000 Medical 00 ml/hr, [place] Infuse over: 1 hr, Route: IV, Dosing Weight 88.636 kg, Total Volume: 1,000, Start date: 09/26/14 11:04:00, Duration: 1 doses or times, Stop date: 09/26/14 12:03:00 Levemir No Notes: 13 Same as [place] 02:00: Levemir Do Medical 00 not hold Center insulin without contacting prescriber "single patient use only" Oxycodone No Notes: Hydrochlori - (Same as: [place] as de 5 MG 23:00: Roxicodone Medi blanquita Oral Tablet 00 ) Center Lidocaine No Notes: Hydrochlori 09-25 Apply only [place] de 0.05 21:00: once for Medica l MG/MG 00 up to 12 Center Transdermal hours in a Patch 24-hour [Lidoderm] period (12 hours on and 12 hours off). (Same as: Lidoderm) "Remove old patch before applicatio n of new patch" celecoxib No Notes: 09-25 NSAID. [place] 20:37: Please Medical 00 check Center indication . Not for seizure. (Same As: CeleBREX ) Tramadol No Notes: Not 09-25 to exceed [place] 20:37: 400mg/day. Medical 00 (Same As: Center Ultram) Oxycodone No Notes: Hydrochlori 09-25 (Same as: [place] as de 5 MG 20:37: Roxicodone Medi blanquita Oral Tablet 00 ) Center Dextrose No Special 50% Syringe 09-25 Instructio [place] 20:34: ns: For Medical 00 FSBG < 40 Center mg/dL Insulin No 60 regular 4-12 units) [place] 20:34: Stable for Medical 00 28 days at Center room temperatur e Expires in days from ____Date Iohexol No Notes: - (Same [place] 17:24: as:[employer] Medical 00 ue 350). [place] Oxycodone No Notes: Hydrochlori 09-25 (Same as: [place] as de 5 MG 17:21: Roxicodone Medi blanquita Oral Tablet 00 ) Center Morphine No Notes: 09-25 (Same [place] 15:11: as:MORPhin Medical 00 e Sulfate) Center No 1 tab, Multivitami 12 Route: PO, [place] ns with 14:00: Drug Form: Medi blanquita Folic Acid 00 TAB, Center 0.8 mg oral Dosing tablet Weight 88.636, kg, Daily, Start date: 09/25/14 9:00:00, Duration: 30 day, Stop date: 10/24/14 9:00:00 ferrous No Notes: sulfate 4-11 Give with [place] 22:00: food. "Do Medical 00 Not Crush" Center ferrous No Notes: MH sulfate 4-11 Give with [place] 18:00: food. iron Medical elemental Center [id number] as ferrous sulfate Dose=___mg elemental iron insulin No Notes: MH detemir 4-10 Same as [place] 17:54: Levemir Do Medical 00 not hold Center insulin without contacting prescriber "single patient use only" Miralax No Notes: MH 4-10 Dissolve [place] 14:00: in 8 oz of Medical 00 water or Center juice. (Same as: Miralax) Bisacodyl No Notes: MH 4-10 (Same As: [place] 13:59: Dulcolax, Medical 00 [place]-Lax) Center gabapentin No Notes: MH 300 MG Oral - (Same as: [place] as Capsule 05:00: Neurontin) Medi blanquita 00 Center insulin No Notes: detemir 4- Same as [place] 02:00: Levemir Do Medical not hold Center insulin without contacting prescriber "single patient use only" senna 8.6 No Notes: MH mg oral 09-22 (Same as: [place] tablet 22:00: Senokot) Medical 00 Center Naproxen No Notes: MH 09-22 (Same as: [place] 22:00: Naprosyn) Medical 00 Center Docusate No Notes: Sodium 100 09-22 (Same as: [place] MG Oral 22:00: Colace) Medical Capsule 00 Center [Colace] insulin No 5 unit, detemir 09-22 Route: [place] 22:00: SUB-Q, Medical 00 QPM, Center Dosing Weight 88.636, kg, Start date: 09/22/14 17:00:00, Duration: 30 day, Stop date: 10/21/14 17:00:00 Insulin, No 6 unit, Aspart, 09-22 Route: [place] Human 16:30: SUB-Q, Medical 00 Drug form: Center SOLN, TID-Before Meals, Dosing Weight 88.636, kg, Start date: 09/22/14 11:30:00, Duration: 30 day, Stop date: 10/22/14 7:30:00 insulin No Notes: detemir 09-22 Same as [place] 16:12: Levemir Do Medical 00 not hold Center insulin without contacting prescriber "single patient use only" Insulin, No Notes: Aspart, 09-22 Roll in [place] Human 15:50: palms of Medical 00 hands Center gently; Do not shake vigorously . (Same as: NovoLOG) "single patient use only" Stable for 28 days at room temperatur e. Expires in days from ____Date Insulin, No 7 unit, Aspart, 09-22 Route: [place] Human 14:57: SUB-Q, Medical 00 Drug form: Center SOLN, TID-Before Meals, Dosing Weight 88.636, kg, PRN Blood Glucose Results, Start date: 09/22/14 9:57:00, Duration: 30 day, Stop date: 10/22/14 9:56:00 insulin No Notes: detemir 09-21 Same as [place] 20:00: Levemir Do Medical not hold Center insulin without contacting prescriber "single patient use only" insulin No Notes: detemir 09-21 Same as [place] 15:40: Levemir Do Medical not hold Center insulin without contacting prescriber "single patient use only" Insulin, No Notes: Aspart, 09-20 Roll in [place] Human 21:30: palms of Medical 00 hands Center gently; Do not shake vigorously . (Same as: NovoLOG) "single patient use only" Stable for 28 days at room temperatur e. Expires in days from ____Date ergocalcife No Notes: rol 09-20 (Same as: [place] 21:00: Vitamin D) Medical 00 "Do Not Center Crush" Glucagon No 1 mg, 09-20 Route: IM, [place] 20:01: Drug form: Medical 00 PDR/INJ, Center PRN, Dosing Weight 88.636, kg, PRN Blood Glucose Results, Start date: 09/20/14 15:01:00, Duration: 30 day, Stop date: 10/20/14 15:00:00 Dextrose No 25 gm, 50 50% Syringe - mL, Route: [place] 20:01: IVP, Drug Medical Form: INJ, Center Dosing Weight 88.636, kg, PRN, PRN Blood Glucose Results, Start date: 09/20/14 15:01:00, Duration: 30 day, Stop date: 10/20/14 15:00:00 Insulin, No Notes: Aspart, 09-20 Roll in [place] Human 20:01: palms of Medical 00 hands Center gently; Do not shake vigorously . (Same as: NovoLOG) "single patient use only" Stable for 28 days at room temperatur e. Expires in days from ____Date pneumococca No Notes: l capsular 09-20 (Same as: [place] rosales polysacchar 14:00: Pneumovax M edical amira type 1 00 23) Center vaccine / Refrigerat pneumococca e l capsular polysacchar amira type 10A vaccine / pneumococca l capsular polysacchar amira type 11A vaccine / pneumococca l capsular polysacchar amira type 12F vaccine / pneumococca l capsular polysacchar Celebrex No Notes: 4-07 NSAID. [place] 14:00: Please Medical 00 check Center indication . Not for seizure. (Same As: CeleBREX ) Insulin No 60 regular -07 units) [place] 07:32: Stable for Medical 00 28 days at Center room temperatur e Expires in days from ____Date PlasmaLyte No 1,000 mL, A PH-7.4 09-20 Rate: 100 [place] 1,000 mL 07:20: ml/hr, Medical 00 Infuse Center over: 10 hr, Route: IV, Dosing Weight 88.636 kg, Total Volume: 1,000, Start date: 09/20/14 2:20:00, Duration: 30 day, Stop date: 10/20/14 2:19:00 quinapril Yes 40 mg = 1 MH 40 mg oral -07 tab, PO, [place] tablet 06:46: Daily, 0 Medical 00 Refill(s) [place] atorvastati Yes 20 mg = 1 M H n 20 mg 4-07 tab, PO, oral tablet 06:46: Bedtime, 0 Medical 00 Refill(s) [place] methocarbam No 750 mg = 1 MH ol 750 mg 4-07 tab, PO, [place] oral tablet 06:46: PRN q 8 Med ical 00 hrs, 0 [place] Refill(s) Glyburide 5 No 1 tab, PO, MH MG / -07 TID, 0 [place] Metformin 06:41: Refill(s) Med ical hydrochlori 00 [place] de 500 MG Oral Tablet Aspirin 81 Yes 81 mg = 1 MH MG Enteric 09-20 tab, PO, [place] Coated 06:41: Daily, 0 Medical Tablet 00 Refill(s) [place] Dextrose No 25 gm, 50 MH 50% Syringe 09-20 mL, Route: [place] 05[place]: IVP, Drug Medical 00 Form: INJ, Center Dosing Weight 88.636, kg, PRN, PRN Blood Glucose Results, Start date: 09/20/14 0:17:00, Duration: 30 day, Stop date: 10/20/14 0:16:00 Insulin, No Notes: Aspart, 09-20 Roll in [place] Human 05:17: [place] [phone] hands Center gently; Do not shake vigorously . (Same as: NovoLOG) "single patient use only" Stable for 28 days at room temperatur e. Expires in days from ____Date Glucagon No 1 mg, MH 09-20 Route: IM, [place] 05:17: Drug form: Medical 00 PDR/INJ, Center PRN, Dosing Weight 88.636, kg, PRN Blood Glucose Results, Start date: 09/20/14 0:17:00, Duration: 30 day, Stop date: 10/20/14 0:16:00 Tramadol No Notes: Not 09-20 to exceed [place] 05:00: 400mg/day. Medical 00 (Same As: Center Ultram) Lyrica No Notes: 09-20 (Same as: [place] 05:00: Lyrica) Medical 00 Center Tylenol No Notes: Max 09-20 acetaminop [place] 04:00: hen 4000 Medical 00 mg/day (4 Center gm/day). (Same as: Tylenol Extra Strength) Enoxaparin No Notes: 09-20 (Same as: [place] 03:00: Lovenox) Medical Center Dilaudid No Notes: 09-19 Same as: [place] 23:55: Dilaudid Medical 00 Center iodixanol No Special 09-19 Instructio [place] 23:26: ns: Dose = Medical 00 2.2ml/kg, Center Max dose = 100ml -- "To be infused by Radiology Staff ONLY" Iohexol No Special 09-19 Instructio [place] 23:24: ns: Dose = Medical 00 2.2ml/kg, Center Max dose = 100ml -- "To be infused by Radiology Staff ONLY" fluorescein No Route: ophthalmic 09-19 RIGHT EYE, [facility] as 1 mg test 22:50: ONCE, Medical 00 Start Center date: 09/19/14 17:50:00, Stop date: 09/19/14 17:50:00 Proparacain No 1 drp, e 09-19 Route: [place] hydrochlori 22:50: RIGHT EYE, Medical de 5 MG/ML 00 ONCE, Drug Cosme ter Ophthalmic form: Solution SOLN, Priority: STAT, Start date: 09/19/14 17:50:00, Stop date: 09/19/14 17:50:00 Saline No Notes: Flush 0.9% 09-19 (Same as: [place] 22:[place]: BD Medical 00 Posiflush) [place] Morphine No Notes: 09-19 (Same [place] 22:49: as:MORPhin Medical 00 e Sulfate) [place] Ondansetron No Notes: 09-19 (Same as: [place] 22:49: Zofran) Medical 00 Center MEDICATION WASTE Product Size: 4 mg Product Wasted: ___ mg Veltassa Veltassa Yes [place] [address] [facility] with food [facility] Amlodipine Amlodipine Yes Macy [address] [facility] Besylate Besylate [facility] Aspirin Aspirin Yes Macy [address] [facility] Adult Low Adult Low [facility] Dose Dose [facility] Metoprolol Metoprolol Yes Macy [address] [facility] [address] Tartrate Tartrate [facility] Furosemide Furosemide Yes Macy [address] [facility] Millender as needed [facility] for leg Memoria swelling l [facility] Carvedilol Carvedilol Yes Macy [address] [facility] Millender (50 mg) [facility] HydrALAZINE HydrALAZINE Yes Macy [address] [facility] HCl HCl [facility] with food [facility] OneTouch OneTouch Yes Macy TEST [address] [facility] Ultra Test Ultra Test Millender TIMES A [facility] DAY [facility] Doxazosin Doxazosin Yes Macy [address] [facility] [address] Mesylate Mesylate [facility] in evening [facility] Vital Signs Vital Name Observation Time Observation Value Comments Source Systolic (mm Hg) 2017-02-21 18:07:00 [facility] Diastolic (mm Hg) 2017-02-21 18:07:00 [facility] Heart Rate 2017-02-21 18:07:00 [facility] Respitory Rate 2017-02-21 18:07:00 [facility] Temperature Oral (F) 2017-02-21 18:07:00 98.2 F [facility] Systolic (mm Hg) 2017-02-21 13:15:00 [facility] Diastolic (mm Hg) 2017-02-21 13:15:00 [facility] Respitory Rate 2017-02-21 13:15:00 [facility] Heart Rate 2017-02-21 13:15:00 [facility] Systolic (mm Hg) 2017-02-21 05:53:00 [facility] Diastolic (mm Hg) 2017-02-21 05:53:00 [facility] Respitory Rate 2017-02-21 05:53:00 [facility] Heart Rate 2017-02-21 05:53:00 [facility] Temperature Oral (F) 2017-02-21 05:53:00 98.1 F [facility] Temperature Oral (F) 2017-02-21 03:21:00 98.4 F [facility] Height 2017-02-19 18:50:00 190.5 cm [facility] Weight 2017-02-19 18:50:00 [facility] BMI Calculated 2017-02-19 18:50:00 [facility] Weight 2017-02-19 15:12:00 [facility] BMI Calculated 2017-02-19 15:12:00 [facility] Height 2017-02-19 15:12:00 190.5 cm [facility] Systolic (mm Hg) 2014-11-09 16:50:00 [facility] Center Diastolic (mm Hg) 2014-11-09 16:50:00 [facility] Respitory Rate 2014-11-09 16:50:00 [facility] Temperature Oral (F) 2014-11-09 16:50:00 98.1 F [facility] Heart Rate 2014-11-09 16:50:00 [facility] Systolic (mm Hg) 2014-11-09 13:40:00 [facility] Center Diastolic (mm Hg) 2014-11-09 13:40:00 [facility] Heart Rate 2014-11-09 13:40:00 [facility] Temperature Oral (F) 2014-11-09 13:40:00 98.3 F [facility] Respitory Rate 2014-11-09 13:40:00 [facility] Temperature Oral (F) 2014-11-09 10:46:00 98.1 F [facility] Heart Rate 2014-11-09 10:46:00 [facility] Center Systolic (mm Hg) 2014-11-09 10:46:00 [facility] Center Diastolic (mm Hg) 2014-11-09 10:46:00 [facility] Respitory Rate 2014-11-09 10:46:00 [facility] Weight 2014-11-08 15:17:00 [facility] BMI Calculated 2014-10-29 08:43:00 [facility] Weight 2014-10-29 08:43:00 [facility] Height 2014-10-29 08:43:00 190.5 cm [facility] Weight 2014-10-28 17:36:00 [facility] BMI Calculated 2014-10-28 17:36:00 [facility] Height 2014-10-28 17:36:00 190.5 cm [facility] Heart Rate 2014-10-19 22:27:00 [facility] Center Respitory Rate 2014-10-19 22:27:00 [facility] Systolic (mm Hg) 2014-10-19 22:27:00 [facility] Diastolic (mm Hg) 2014-10-19 22:27:00 [facility] Temperature Oral (F) 2014-10-19 22:27:00 99.4 F [facility] Temperature Oral (F) 2014-10-19 18:25:00 97.8 F [facility] Systolic (mm Hg) 2014-10-19 18:25:00 T [facility] Center Diastolic (mm Hg) 2014-10-19 18:25:00 [facility] Respitory Rate 2014-10-19 18:25:00 [facility] Heart Rate 2014-10-19 18:25:00 [facility] Temperature Oral (F) 2014-10-19 12:49:00 98.0 F [facility] Respitory Rate 2014-10-19 12:49:00 [facility] Systolic (mm Hg) 2014-10-19 12:49:[address] [facility] Diastolic (mm Hg) 2014-10-19 12:49:00 [facility] Heart Rate 2014-10-19 12:49:00 [facility] Weight 2014-10-14 14:04:00 [facility] Height 2014-10-14 14:04:00 190.5 cm [facility] BMI Calculated 2014-10-13 04:59:00 [facility] Weight 2014-10-13 04:59:00 [facility] Height 2014-10-13 04:59:00 190.5 cm [facility] Heart Rate 2014-10-10 21:09:00 [facility] Center Systolic (mm Hg) 2014-10-10 21:09:[address] [facility] Diastolic (mm Hg) 2014-10-10 21:09:00 [facility] Respitory Rate 2014-10-10 21:09:00 [facility] Heart Rate 2014-10-10 18:00:00 [facility] Systolic (mm Hg) 2014-10-10 18:00:00 [facility] Diastolic (mm Hg) 2014-10-10 18:00:00 [facility] Respitory Rate 2014-10-10 18:00:00 [facility] Systolic (mm Hg) 2014-10-10 13:49:00 [facility] Diastolic (mm Hg) 2014-10-10 13:49:00 [facility] Respitory Rate 2014-10-10 13:49:00 [facility] Heart Rate 2014-10-10 13:49:00 [facility] Temperature Oral (F) 2014-10-10 09:00:00 98.0 F [facility] Temperature Oral (F) 2014-10-10 04:45:00 98.2 F [facility] Temperature Oral (F) 2014-10-10 00:33:00 98.8 F [facility] BMI Calculated 2014-09-20 05:24:00 [facility] Weight 2014-09-20 05:24:00 [facility] Height 2014-09-20 05:24:00 190.5 cm [facility] BMI Calculated 2014-09-19 22:47:00 [facility] Weight 2014-09-19 22:47:00 [facility] Height 2014-09-19 22:47:00 190.5 cm [facility] Procedures Procedure Date / Time Performed Performing Clinician Sourc e Fusion of lumbar spine [facility] Knee [facility] replacement<sup>1</sup Center > Encounters Start End Encounter Admission Attending Care Care Encounter Source Date/Time Date/Time Type Type Clinicians Facility Department ID 2019-09-27 2019-09-27 [facility] [id number] [facility] 14:51:00 14:51:00 [facility] Medicine Medicine Outpati ent [facility] 2019-09-27 2019-09-27 [facility] [id number] 11:30:00 11:30:00 [facility] Medicine Medicine Outpati ent Clinics 2019-06-28 2019-06-28 [facility] [id number] 15:48:00 15:48:00 [facility] Medicine Medicine Outpati ent Clinics 2019-06-28 2019-06-28 [facility] [id number] 08:30:00 08:30:00 [facility] Medicine l Medicine Outpati ent Clinics 2019-01-19 2019-01-19 [facility] [id number] 08:04:00 08:04:00 [facility] Medicine l Medicine Outpati ent Clinics 2018-12-28 2018-12-28 [facility] [id number] 15:18:00 15:18:00 t [facility] l Medicine Outpati ent Clinics 2018-12-28 2018-12-28 [facility] [id number] 10:40:00 10:40:00 [facility] Medicine l Medicine Outpati ent Clinics 2018-11-24 2018-11-24 [facility] [id number] 11:16:00 11:16:00 t [facility] Medicine Outpati ent Clinics 2018-07-21 2018-07-21 [facility] [id number] 10:00:00 10:00:00 [facility] Medicine l Medicine Outpati ent Clinics 2018-02-19 2018-02-19 [facility] [id number] 14:59:00 14:59:00 [facility] Medicine Medicine Outpati ent Clinics 2018-01-14 2018-01-14 [facility] [id number] 22:24:00 22:24:00 [facility] Medicine Outpati ent Clinics 2018-01-14 2018-01-14 [facility] [id number] 14:00:00 14:00:00 [facility] Medicine Outpati ent [facility] 2017-09-29 2017-09-29 [facility] [id number] 09:00:00 09:00:00 [facility] Medicine Outpati ent [facility] 2017-02-19 2017-02-22 Inpatient MHIEALT [facility] [id number] MH 15:07:00 01:18:[address] [facility] 2017-02-19 2017-02-21 Outpatient Austyn [facility] [id number] 10:07:00 20:18:00 Fernando Hung Marrero 2014-10-28 2014-11-10 Inpatient MHIEALT [facility] [id number] MH 17:32:00 00:10:[address] [facility] 2014-10-28 2014-11-09 Outpatient Kg, MHIEALT [facility] [id number] 12:32:00 19:10:00 [place] 2014-10-13 2014-10-19 Inpatient MHIEALT [facility] [id number] 04:59:00 23:50:[address] [facility] 2014-10-12 2014-10-19 Outpatient Clau Michael MHIEALT MHIEALT [id number] 23:59:00 18:50:00 A. 19 2014-09-19 2014-10-11 Inpatient MHIEALT [facility] [id number] MH 22:45:00 00:30:[address] [facility] 2014-09-19 2014-10-10 Outpatient Kg, MHIEALT MHIEALT [id number] 17:45:00 19:30:00 [place] Results Test Description Test Time Test Comments Results Result Comments Source CHEM PANEL 2017-02-21 2.7 [facility] [place] [facility] 08:20:00 [place] CHEM PANEL 2017-02-21 2.2 MH [place] [facility] 08:20:00 [facility] 2017-02-21 13.1 MH [place] Med ical 08:20:00 [facility] 2017-02-21 37 MH [place] Med ical 08:20:00 [facility] 2017-02-21 172 MH [place] Med ical 08:20:00 [facility] 2017-02-21 110 MH [place] Med ical 08:20:00 [place] ELECTROLYTES 2017-02-21 22 MH [place] Med ical 08:20:00 [place] ELECTROLYTES 2017-02-21 8.7 MH [place] Med ical 08:20:00 [place] ELECTROLYTES 2017-02-21 4.1 MH [place] [facility] ical 08:20:00 [place] ELECTROLYTES 2017-02-21 28 MH [place] Med ical 08:20:00 [place] ELECTROLYTES 2017-02-21 1.87 MH [place] Med ical 08:20:00 [place] ELECTROLYTES 2017-02-21 141 MH [place] Med ical 08:20:00 [place] HEMATOLOGY 2017-02-21 0.1 MH [place] [facility] 08:20:00 [place] HEMATOLOGY 2017-02-21 0.9 MH [place] [facility] 08:20:00 [place] HEMATOLOGY 2017-02-21 7.3 MH [place] [facility] 08:20:00 [place] HEMATOLOGY 2017-02-21 0.5 MH [place] [facility] 08:20:00 [place] HEMATOLOGY 2017-02-21 1.3 MH [place] [facility] 08:20:00 [place] HEMATOLOGY 2017-02-21 1.3 MH [place] [facility] 08:20:00 [place] HEMATOLOGY 2017-02-21 9.5 MH [place] [facility] 08:20:00 [place] HEMATOLOGY 2017-02-21 13.7 MH [place] [facility] 08:20:00 [place] HEMATOLOGY 2017-02-21 75.0 MH [place] [facility] 08:20:00 [place] HEMATOLOGY 2017-02-21 237 MH [place] [facility] 08:20:00 [place] HEMATOLOGY 2017-02-21 7.6 MH [place] [facility] 08:20:00 [place] HEMATOLOGY 2017-02-21 13.6 MH [place] [facility] 08:20:00 [place] HEMATOLOGY 2017-02-21 88.0 MH [place] [facility] 08:20:00 [place] HEMATOLOGY 2017-02-21 34.6 MH [place] [facility] 08:20:00 [place] HEMATOLOGY 2017-02-21 08:20:00 Test Item Value Reference Range Interpretation Comme nts MCH (test code = MCH) 30.5 pg 27.0-31.0 [facility] CenterEcsavhSJTOGGRVGZ5581-18-45 08:20:003.54[facility] NKQZTSVGWB8264-70-62 08:20:0031.2[facility] HospitalUkvzjwSENJDIKTSF1003-84-89 08:20:0010.8[facility] CenterIrkxayINHNENTKHV7334-23-97 08:20:009.8[facility] CenterBL[facility] PFOTWHN2934-38-75 06:54:00Negative (02/20/17 1:54 AM)[facility] CenterCHEM JZNNG4416-47-37 06:54:007.9[facility] CenterCHEM ORNMC6025-91-30 06:54:0011.2[facility] HospitalCHEM EWDEF1204-56-82 06:54:00 23[facility] CenterCHEM DRDSL9022-25-75 06:54:0031[facility] CHEM UESVD2975-56-81 06:54:0032[facility] CenterCHEM IKNZE9288-04-84 06:54:002.18[facility] CenterCHE[facility] MTIRE4721-81-70 06:54:87076HSOakBend Medical CenterCHEM KPXRG9791-19-71 06:54:63536NFO[facility]Bend Medical CenterCHEM PANEL 2017-02-20 06:54:004.2[facility] HospitalCHEM XWRIC9793-01-82 06:54:28142HPOakBend Medical CenterQzdtgoACJFYVDXGH0296-73-15 06:54:000.5[facility] OHPKOVPUIG0731-45-40 06:54:000.5[facility] CenterYodccaIKLONADCVM8624-61-36 06:54:006.2MH[facility] HospitalPqrofhMLENPWUNNM5732-67-85 06:54:001.4[facility] CenterVwweqtYJFTTGRTCM4833-99-87 06:54:0069.4[facility] CenterHEMATOLOGY 2017-02-20 06:54:0016.0[facility] CenterPqzzlyRKHRAYJGVQ2933-59-19 06:54:0013.6 [facility] CenterDwsvcoPQYPEGQFYT2313-94-68 06:54:001.2[facility] AXFGHIFXFK9555-07-63 06:54:0027.5[facility] CenterHqzzxfJYBYFFPWWS8425-64-93 06:54:0087.0[facility] CenterYinpllDLOKIWSICA8076-74-72 06:54:009.6MHemph[facility] HospitalEikybwYHZJBGFKYP0380-86-56 06:54:003.16[facility] CenterHEMATOLOGY 2017-02-20 06:54:008.9[facility] CenterUpwsefCZMFSQJJNK3968-31-44 06:54:0013.5[facility] CenterAllsjyUMZTGPCSQT9098-63-18 06:54:0035.0[facility] EZWNHDPVSZ0312-50-56 06:54:00 Test Item Value Reference Range Interpretation Comments MCH (test code = MCH) 30.5 pg 27.0-31.0 [facility] CenterHnrpkyHJTZPVNFNG6932-93-04 06:54:18579CL[facility] IQOTGQAFJX0058-77-05 06:54:007.4[facility] CenterZvbtanWJXZPVIQSF8613-34-88 06:54:001.16[facility] CenterDtdxdpIFNMFSCXHN3392-87-56 06:54:00 Test Item Value Reference Range Interpretation Comments PT (test code = PT) 15.0 s 12.0-14.7 [facility] CenterZfdvuqTDWFHXOFLN5420-02-07 06:54:00 Test Item Value Reference Range Interpretation Comments PTT (test code = PTT) 33.3 s 22.9-35.8 [facility] CenterDR[facility] [id number] 19:24:00Negative *NA*(02/19/17 2:24 PM)[facility] CenterDR[facility] [id number] 19:24:00Negative *NA*(02/19/17 2:24 PM)[facility] CenterDR[facility] [id number] 19:24:00Negative *NA*(02/19/17 2:24 PM)[facility] CenterDR[facility] [id number] 19:24:00See Note (02/19/17 2:24 PM)[facility] MNRNQG4131-12-06 19:24:00 Positive *ABN*(02/19/17 2:24 PM)[facility] CenterDR[facility] MCFRNJ9591-17-65 19:24:00Negative *NA*(02/19/17 2:24 PM)[facility] SCREEN 2017-02-19 19:24:00Negative *NA*(02/19/17 2:24 PM)[facility] CenterDR[facility] [id number] 19:24:00Negative *NA*(02/19/17 2:24 PM)[facility] URINE AND [id number] 19:24:00Negative (02/19/17 2:24 PM)[facility] CenterUR[facility] AND [id number] 19:24:00Negative (02/19/17 2:24 PM)[facility] Center[facility] AND MKYYZ1671-44-70 19:24:00Moderate *ABN*(02/19/17 2:24 PM)[facility] Center[facility] AND PPSVH3544-34-03 19:24:00Negative *NA*(02/19/17 2:24 PM)[facility] Center[facility] DWYZP4024-19-58 19:24:006.0[facility] CenterUR[facility] AND PLNMO6111-47-53 19:24:001.034[facility] CenterUR[facility] AND UGSLD0601-17-46 19:24:00<1MHemph[facility] HospitalURINE AND VKDBH6474-77-22 19:24:002[facility] CenterUR[facility] AND KFWEF9816-78-67 19:24:00Light Yellow *NA*(02/19/17 2:24 PM)[facility] CenterUR[facility] TGKDA1744-06-65 19:24:00 Clear (02/19/17 2:24 PM)[facility] CenterCHEM IRVBG0127-91-27 15:24:041.0[facility] CenterUqjshdDBFVOUMCEMLL6915-03-06 15:24:0415.5[facility] NEQMJYOWWRRI0907-40-87 15:24:0417[facility] CenterPofdraUQFFNXCCZTKR8289-70-20 15:24:25928WZOakBend Medical CenterEvbzcdIRLEHFUNCFWT3370-54-85 15:24:0444[facility] CenterBlewjvRCSHHORCEVKV9735-76-84 15:24:042.60[facility] MCEARKXCJFRL5919-80-11 15:24:88243ZBOakBend Medical CenterQutmsnUDFIXTFSEIXK3423-30-27 15:24:07268LKOakBend Medical CenterNvcifhJKBMSWFNUDKP8314-50-64 15:24:045.5[facility] CenterRuitlsFKYTEJYSPLPU0215-68-58 15:24:0422[facility] IJABNHVLFKLY8266-39-48 15:24:[address] [place], [place] [address]MtompnVIMPWKMEVO2211-63-97 15:24:0411.9[facility] CenterHdsgqrDLGXVLGWLR1279-90-53 15:24:[address] [place], [place] [address]ImznxnXEDWEZLHEJ8289-16-60 15:24:045.9[facility] CenterHEMATOLOGY 2017-02-19 15:24:040.9[facility] CenterEagboaFVJPBLDOZX5578-60-57 15:24:041.9[facility] CenterYsmufxLFGCUWMEDE2732-94-67 15:24:0412.8[facility] XGKDITVSNK2670-73-94 15:24:040.2MHemph[facility] HospitalUgvnkwALAYXXEWUH3848-96-61 15:24:040.4[facility] CenterTglqrkYTEKHKTLCK2501-65-69 15:24:0480.7[facility] CenterWaicltEXLUZYAGHE3864-64-01 15:24:040.[address] [place], [place] [address]ATOLOGY 2017-02-19 15:24:04 Test Item Value Reference Range Interpretation Comments MCH (test code = MCH) 28.8 pg 27.0-31.0 [facility] CenterMvxzwcXVPBBRKBEY4101-81-19 15:24:047.4[facility] GVOCWGBDII2186-51-44 15:24:0413.5[facility] CenterFnimpiIISNSLGYPU9542-71-98 15:24:92177PZHemphill County HospitalFxvsggZICMZKUBOO5356-00-24 15:24:0432.7[facility] CenterLowutxUIDIJGARHU7661-42-04 15:24:0487.9[facility] 2017-02-19 15:24:0437.4[facility] CenterUjadggUPKTXYTEMQ6230-40-09 15:24:0415.9 [facility] CenterUwndifXUCFEQXVBL3941-62-06 15:24:044.25[facility] URUFWYZQAJ1395-51-31 15:24:[address] [place], [place] [address]DodvzxTHLKTLGTLP1764-65-50 15:24:04 Test Item Value Reference Range Interpretation Comments Angle Rapid (test code = Angle 81 degrees 64-80 Rapid) [facility] CenterJlzqdcZKGXZWQONQ5228-14-90 15:24:04 Test Item Value Reference Range Interpretation Comments K-time Rapid (test code = K-time 0.8 min 0.6-2.3 Rapid) [facility] 15:24:04 Test Item Value Reference Range Interpretation Comments R-time Rapid (test code = R-time 0.5 min 0.4-0.7 Rapid) [facility] 15:24:04 Test Item Value Reference Range Interpretation Comments Split Point Rapid (test code = Split 0.4 min Point Rapid) [facility] CenterChnjwgRBBRDBJRXF3612-78-07 15:24:04 Test Item Value Reference Range Interpretation Comments ACT (TEG) Rapid (test code = ACT (TEG) 97 s 86-118 Rapid) [facility] CenterNxnzwgDAJANMCOAI0572-94-72 15:24:0415.0[facility] AWVCHQANJI8646-48-82 15:24:04 Test Item Value Reference Range Interpretation Comments Max Amplitude Rapid (test code = Max 75 mm 52-71 Amplitude Rapid) [facility] CenterVzwzspHQAZQHCANF3994-45-70 15:24:040.[address] [place] [address] BLOOD BANK ZGVULOH1030-78-20 15:19:00Negative (02/19/17 10:19 AM)[facility] CenterVqyqxePXBYUYDXPA7166-31-86 05:55:[address] [place], [place] [address]ATOLOGY 2014-11-08 05:55:88647IAOakBend Medical CenterOkdvemAHCTKVHWFX3552-16-81 05:55:[address] [place], [place] [address]WdmpqkVORNBHNNTE8609-81-92 05:55:[address] [place] [address] XHAKGNQJID8445-59-60 05:55:[address] [place], [place] [address]IwkoteHOOMLENKDQ1704-91-95 05:55:00 Test Item Value Reference Range Interpretation Comments MCH (test code = MCH) 27.7 pg 27.0-31.0 [facility] CenterFihowrKVFXTBNRWF2083-21-88 05:55:[address]87.[address] [place] [address] KIIEOVZOLH7987-96-98 05:55:[address] [place], [place] [address]CbekeuRKMPIOICYW3123-40-31 05:55:003.[address] [place], [place] [address]WttkvqZFDGWCVASM0973-00-56 05:55:[address] [place], [place] [address]CqfawjOOZFBEQOXK5275-76-06 05:55:[address] [place], [place] [address]HEMATOLOGY 2014-11-08 05:55:[address] [place], [place] [address]RabrmfKULTJCQLTX1458-60-58 05:55:0010.4 [facility] CenterYrdllzWBGSXGSIDV6193-15-64 05:55:003.[address] [place] [address] AKQZDSEARB4112-59-09 05:55:[address] [place], [place] [address]AfcwpgYUVCYRGJCR0241-20-62 05:55:[address] [place], [place] [address]XfbjaePKXFWSAGLX7593-28-45 05:55:000.3[facility] HospitalHvblavYQTUQDPNZV8885-66-27 05:55:[address] [place], [place] [address]HEMATOLOGY 2014-11-08 05:55:000.7[facility] CenterVldouoBPWIIECNTE9966-40-87 05:55:[address] [place], [place] [address]ZcepocNDAEFRXLSX5397-41-19 05:06:67[facility] IPADQFWQDR3916-63-63 05:06:0017.7[facility] CenterSijbyiIBSCUBSVJQ8956-49-13 05:06:006.9[facility] CenterFudstoSEUTSEYROL8742-68-10 05:06:00 Test Item Value Reference Range Interpretation Comments MCH (test code = MCH) 27.8 pg 27.0-31.0 [facility] CenterAzkwvzUBNJYRACFK2144-03-78 05:06:0086.9[facility] CICVGYVTYS6645-57-96 05:06:0032.0[facility] CenterXrgikvNRGJEEABLS3622-98-06 05:06:003.26[facility] CenterSmmyizIDZXAEDYUJ4971-57-86 05:06:0028.4[facility] CenterBcpfpkNEWBBTYMMN4325-59-60 05:06:009.[address] [place], [place] [address]HEMATOLOGY 2014-11-07 05:06:009.[address] [place], [place] [address]PqtoljQDCISJUJDO9954-92-90 05:06:0010.5[facility] CenterFbcxdhNGQKNLSGFM9755-38-54 05:06:[address] [place] [address] JCKQRSSJSE0374-58-60 05:06:[address] [place], [place] [address]VheigjSVNMAJDHBY4304-75-30 05:06:[address] [place], [place] [address]KpbkbdQRKLWFGWKZ1380-47-90 05:06:[address] [place], [place] [address]NtqtylWXDMZYZRNK7693-53-77 05:06:000.5[facility] CenterHEMATOLOGY 2014-11-07 05:06:0057.[address] [place], [place] [address]CcguldXJRWYILERH5813-79-52 05:06:[address] [place], [place] [address]ZjxylgEARDWKJMOW6802-11-82 05:06:[address] [place] [address] CLCOXBAENP0122-87-74 05:06:001.0[facility] CenterBjocgzIUZHYMUGQY9643-30-13 10:39:001.8[facility] CenterRteqdgYGHOQNQVBD8614-32-40 10:39:000.7[facility] CenterTdyvyjHZZALRVNIW1565-61-49 10:39:000.2[facility]HE[facility] 2014-11-06 10:39:003.4[facility] CenterRcwyrvTEGAHIQFXL7373-60-73 10:39:000.7[facility] CenterIopflqREXCCQICJS5400-23-70 10:39:004.1[facility] XAEIRHRHMB8586-66-13 10:39:[address] [place], [place] [address]OsjasuBRDPOVWVJR1296-83-55 10:39:0059.5[facility] CenterRuypkbYHSRUFPMVV7597-76-19 10:39:0010.3[facility] HospitalKtphlxXHQPUDIZEV9438-14-75 10:39:0017.5[facility] CenterHEMATOLOGY 2014-11-06 10:39:58521BUO[facility] CenterVilrvwVVWVAWGDYF4013-79-25 10:39:00 Test Item Value Reference Range Interpretation Comments MCH (test code = MCH) 27.4 pg 27.0-31.0 [facility] CenterJrhdpmJLNKAAERFJ7152-59-25 10:39:0031.7[facility] QIQMHXBBRR6208-86-36 10:39:0086.4[facility] CenterHhyrlnLBZQUOPIHT5579-79-93 10:39:007.0[facility] CenterZwoslxNMVZOSRRWC3238-22-83 10:39:003.46[facility] CenterQskpflSHYGYOZKLL1523-00-85 10:39:009.5[facility] CenterHEMATOLOGY 2014-11-06 10:39:006.[address] [place], [place] [address]RjkhvdTHBQOWFACS9045-10-70 10:39:0029.9[facility] CenterSufegxGSVZTCXBZP6708-34-76 10:08:[address] [place], [place] [address]CHEM TBQBS4596-22-11 10:07:002[address] [place], [place] [address]CHEM DOMYJ3953-36-75 10:07:00 108[facility] CenterCHEM BYDXW0249-07-83 10:07:0097[facility] CHEM FPMFC6333-92-44 10:07:[address] [place], [place] [address]CHEM REPXW0008-06-54 10:07:0010[facility] CenterCHEM LZWTK4332-66-61 10:07:66868GSOakBend Medical CenterCHEM AQANH9957-08-01 10:07:0029[facility] CenterCHEM PANEL 2014-11-04 10:07:004.[address] [place], [place] [address]CHEM SYOJP6989-78-24 10:07:08053OCO[facility] Medical CenterCHEM WQIXG0408-06-00 10:07:009.[address] [place], [place] [address]CHEM IGPAV8361-15-81 10:07:007.8[facility] CenterCHEM SEHJY0367-97-46 10:07:00 1.6[facility] HospitalPARATHYROID EKMWNWB4920-81-31 10:07:001.13[facility] CenterPARATHYROID EKEHUNB3034-62-52 10:07:001.17[facility] CHEM PXYHD2890-79-54 10:49:001.9[facility] CenterCHEM DVFYR7229-43-07 10:49:67960LEO[facility] Medical CenterCHEM AMGEH4046-13-14 10:49:0025[facility] CenterCHEM KWVPE2741-83-39 10:49:008.[address] [place], [place] [address]CHEM PANEL 2014-11-03 10:49:37530RUOakBend Medical CenterCHEM WJRMZ7689-84-54 10:49:003.8[facility] CenterCHEM VWJUR4963-78-42 10:49:000.7[facility] CenterCHEM MUAXE4408-38-98 10:49:60512PFOakBend Medical CenterCHEM FYIJG2881-76-92 10:49:00 13[facility] CenterCHEM BNWTI3401-15-03 10:49:57189USO[facility] Center CHEM XUQHW5240-28-85 10:49:0011.8[facility] CenterCHEM EBULJ5757-75-16 10:49:001.6[facility] HospitalPARATHYROID QWWOTDP4349-72-36 10:49:001.04[facility] CenterPARATHYROID EADJGBP5409-23-86 10:49:001.05[facility] CenterBLOOD BANK JHBBBAF5770-50-63 08:12:00Negative (11/02/14 3:12 AM)[facility] CenterCHEM THDLN6294-33-40 08:12:58245UWOakBend Medical CenterCHEM PANEL 2014-11-02 08:12:16771WLOakBend Medical CenterCHEM RCSJW4498-04-55 08:12:0012[facility] CenterCHEM JQFKJ6971-98-85 08:12:99793QGOakBend Medical CenterCHEM EGLDK4240-92-43 08:12:[address] [place], [place] [address]CHEM QVSAB1047-36-85 08:12:[address] [place], [place] [address]CHEM FMQPR9944-30-40 08:12:[address] [place], [place] [address]CHEM KEMHN5095-95-34 08:12:[address] [place], [place] [address]CHEM PANEL 2014-11-02 08:12:0026[facility] CenterCHEM TWYDS2343-30-63 08:12:008.[address] [place], [place] [address]CHEM IHRXN9340-35-09 08:12:[address] [place], [place] [address]CHEM RQVGZ8855-79-03 08:12:001.[address] [place], [place] [address]PARATHYROID RZBOMIK0809-81-95 08:12:001.04[facility] CenterPARATHYROID BSZFYZF3875-13-61 08:12:001.[address] [place], [place] [address]UktnlgDUXDJQFJHG5744-73-65 06:16:[address] [place] [address] BLOOD BANK CXFLQTV7337-65-43 10:05:00Negative (10/30/14 5:05 AM)[facility] CenterByrsaaEOXEIGVHII3332-40-87 09:52:008.[address] [place], [place] [address]PECIAL CHEMISTRY 2014-10-29 09:50:005.[address] [place], [place] [address]CHEM RSJQA7847-54-56 05:42:001.[address] [place], [place] [address]AofkwmMCPEPFPVXZ7325-33-07 05:42:00 Test Item Value Reference Range Interpretation Comments Split Point (test code = Split Point) 0.5 [facility] 05:42:00 Test Item Value Reference Range Interpretation Comments ACT (TEG) (test code = ACT (TEG)) 113 s 86-118 [facility] 05:42:00 Test Item Value Reference Range Interpretation Comments K-time (test code = K-time) 0.8 min 0.6-2.3 [facility]-16 05:42:00 Test Item Value Reference Range Interpretation Comments R-time (test code = R-time) 0.7 min 0.4-0.7 [facility]-16 05:42:00 Test Item Value Reference Range Interpretation Comments Max Amp (test code = Max Amp) 77 mm 52-71 [facility] CenterZokiilIWQSKICZPY3599-92-56 05:42:00 Test Item Value Reference Range Interpretation Comments Angle (test code = Angle) 81 degrees 64-80 [facility] CenterMcuajgWJRTGNSDNA0766-30-45 05:42:000.0[facility] BTWMDOTXAM6946-59-79 05:42:0016.6[facility] HospitalURINE AND STOOL 2014-10-29 01:15:00None Seen (10/28/14 8:15 PM)[facility]UR[facility] KBRUB4402-73-21 01:15:00None Seen (10/28/14 8:15 PM)[facility]UR[facility] JJMLN0054-12-62 01:15:003-5 (10/28/14 8:15 PM)[facility]UR[facility] JHKLN9304-28-69 01:15:00Negative (10/28/14 8:15 PM)[facility] URINE AND RLGCI3223-21-38 01:15:00Negative *NA*(10/28/14 8:15 PM)[facility]UR[facility] VMJSW3612-38-21 01:15:00Negative (10/28/14 8:15 PM)[facility] IUYBZ8810-88-81 01:15:00Trace *ABN*(10/28/14 8:15 PM)[facility] GVEOD3463-93-27 01:15:00 Test Item Value Reference Range Interpretation Comments UA pH (test code = UA pH) 6.5 1 5.0-8.0 [facility]UR[facility] ELEPK6214-85-33 01:15:00 Test Item Value Reference Range Interpretation Comments UA Spec Grav (test code = UA Spec 1.010 1 Grav) [facility] RQIYC1637-68-59 01:15:00Clear (10/28/14 8:15 PM) [facility] KAORX4061-91-66 01:15:00Yellow *NA*(10/28/14 8:15 PM)[facility] EVXXI5648-67-74 01:15:00Negative (10/28/14 8:15 PM)[facility] QBMXU2344-35-99 01:15:00 Negative *NA*(10/28/14 8:15 PM)[facility] HEPRN5992-99-73 01:15:00Negative (10/28/14 8:15 PM)[facility]UR[facility] STOOL 2014-10-29 01:15:001.0[facility] CenterCHEM NDJYL9399-63-76 00:39:000.9[facility] CenterCHEM LQKQS7037-94-24 10:24:001.8[facility] CenterCHEM JTGXQ5473-50-10 10:24:002.2[facility] HospitalCHE[facility] ZUPVU2962-08-97 10:24:00 116[facility] CenterCHEM MFMZU0236-22-55 10:24:0027[facility] CHEM UJIKX3321-87-67 10:24:008.1[facility] HospitalCHEM KTIUB6819-90-45 10:24:13674DDOakBend Medical CenterCHEM EEOBO8213-00-23 10:24:98812LDOakBend Medical CenterCHEM SZWBW4198-27-74 10:24:004.0[facility] CenterCHEM PANEL 2014-10-18 10:24:000.5[facility] CenterCHEM XDCUU7040-72-13 10:24:0082[facility] CenterCHEM APZNK2435-72-52 10:24:0011[facility] CenterCHEM SJWQB7005-88-10 10:24:0010.0[facility] CenterUeociyLTWBQXLZIP5687-72-45 10:24:00 610[facility] CenterEjdqfhVFXFRMELSL3149-51-19 10:24:006.3[facility] HospitalTxxhyqKCPQYUXJRE2966-14-67 10:24:0015.6[facility] HospitalHEMATOLOGY 2014-10-18 10:24:0027.8[facility] CenterXunyfhAELTRWHTRQ8115-46-66 10:24:009.0[facility] CenterZynfbzIDNIKBCWPV2401-12-31 10:24:003.22[facility] QVFFCBAIUY0353-15-04 10:24:006.7[facility] CenterGsnmnoOMBNYNYURL7245-94-12 10:24:0086.5[facility] CenterCwjlhiTWJKWXJQUX0340-75-23 10:24:0032.4[facility] CenterKpizuaKDIKZNMMKE1798-53-14 10:24:00 Test Item Value Reference Range Interpretation Comments MCH (test code = MCH) 28.0 pg 27.0-31.0 [facility] CenterXlnhavQPSSFUPZPB6325-42-66 10:24:004.7[facility] JCQNSJWMQH9892-72-77 10:24:0014.0[facility] CenterLyazvsEQNHMNYIMJ9574-21-57 10:24:0010.3[facility] HospitalJqoeilKUHCDEGFHY8517-59-05 10:24:004.0[facility] CenterRzzaziWHLKNLOIHT5095-92-30 10:24:001.2[facility] HospitalHEMATOLOGY 2014-10-18 10:24:0070.5[facility] CenterGtxtekVPXTQSBYXL0468-28-26 10:24:000.1[facility] HospitalFnvmzyJCMUFNSVWZ9282-11-34 10:24:000.3[facility] ZMWFEVNWOM8911-25-20 10:24:000.7[facility] CenterZogpezOYZZIUKZHT6890-91-35 10:24:000.9[facility] EijvghGETXUPCOYY1609-77-73 17:04:907037OWO[facility] Medical CenterBetostSBTTQLIIWK5727-08-48 17:04:0014.8[facility] CenterCHEM PANEL 2014-10-16 10:12:001.7[facility] CenterCHEM IDKIH2391-12-53 10:12:002.0[facility] CenterCHEM XNLZI1866-32-00 10:12:67496HFOakBend Medical CenterCHEM GBBCM4004-06-61 10:12:0011[facility] CenterCHEM EUGPF4965-89-50 10:12:00 7.6[facility] HospitalCHEM EAJUZ2074-17-43 10:12:000.6[facility] HospitalCHEM WKNMW9577-06-36 10:12:17375TFOakBend Medical CenterCHEM PANEL 2014-10-16 10:12:0028[facility] CenterCHEM CFTGV8571-22-63 10:12:39978JIOakBend Medical CenterCHEM SEKZH4031-13-39 10:12:003.9[facility] CenterCHEM KCOTH8183-29-52 10:12:68029DGOakBend Medical CenterCHEM FEBAK9362-67-19 10:12:00 10.9[facility] CenterKazpbuNIQYRSUFDV6055-35-00 10:12:000.7[facility] CenterAtmujmZLOXXXSDXF3327-69-15 10:12:000.1[facility]HEMATOLOGY 2014-10-16 10:12:000.1[facility] HospitalBxrvyuABPDBXUFBZ1707-45-06 10:12:007.8[facility] CenterClgwzvWAQLFTCMTX9804-32-60 10:12:000.8[facility] DRYJADZWLS1365-11-31 10:12:001.0[facility] CenterDkgqlxXSTNNJKHYP4456-05-20 10:12:006.9[facility] CenterWlwkvpRTXKTQTFJZ4512-23-77 10:12:001.3[facility] HospitalWmyoboXQWYLLIFEG6651-58-53 10:12:008.4[facility] CenterHEMATOLOGY 2014-10-16 10:12:0082.4[facility] CenterNjdzjoCPFIQUDACB8260-90-83 10:12:50091GJOakBend Medical CenterNgrifjDKTCWUKSUT5718-32-88 10:12:006[address] [place] [address] IVYPBFRNNM3611-78-55 10:12:0016.5[facility] CenterMfbxpcMDZDPOHDGU9688-29-20 10:12:009.1[facility] HospitalAbkkrmNPBRVXXKPR1385-67-88 10:12:009.4[facility] CenterUboubpCLIBMEJLDC1366-68-62 10:12:003.14[facility] CenterHEMATOLOGY 2014-10-16 10:12:00 Test Item Value Reference Range Interpretation Comments MCH (test code = MCH) 28.9 pg 27.0-31.0 [facility] CenterTflfueXLPVBIGYMS0560-46-37 10:12:[address] [place] [address] PHFUEPBNSY9326-69-05 10:12:0087.5[facility] CenterSunxufRSKJQHFUML8133-38-47 10:12:0027.4[facility] CenterHqgnhmAKRPDIEVYD9103-51-03 04:08:532770NUO[facility] Medical CenterIhuewjLTSIHDMLVD3193-40-01 04:08:[address] [place] [address] PARATHYROID CIWCLQR5959-22-72 10:44:001.04[facility] CenterPARATHYROID RXXSHKJ1077-00-85 10:44:001.08[facility] CenterCHEM KMWBA7735-68-32 07:31:0096[facility] CenterCHEM NTXDV4214-50-60 07:31:007.8[facility] CenterCHEM EZRDN7120-07-31 07:31:75530LRO[facility] Medical CenterCHEM PANEL 2014-10-15 07:31:0025[facility] CenterCHEM USRBK9589-39-16 07:31:004.2[facility] HospitalCHEM XPYGR6924-25-46 07:31:000.8[facility] CenterCHEM WFUTO7262-72-35 07:31:75558QAO[facility]Bend Medical CenterCHEM LIVYB8464-90-86 07:31:00 16[facility] CenterCHEM MTRGO1275-26-41 07:31:41246BJOakBend Medical Center CHEM FXETD4487-70-03 07:31:0014.2[facility] HospitalYuwdkaDFFJJKTQSQ0973-28-58 07:31:001.0[facility] CenterJpshyoHBNCFDZAAR3943-85-78 07:31:000.1[facility] HospitalHmhruwKJYHKRSKDO4635-23-89 07:31:0010.0[facility] CenterHEMATOLOGY 2014-10-15 07:31:000.9[facility] CenterItbmcxUACCEKFPLZ1508-75-23 07:31:000.2[facility] HospitalQpnabnWOZVWYRXKO1862-60-98 07:31:001.0[facility] UFJRCTSRMQ9864-19-05 07:31:008.0[facility] CenterUbxasmWXJOAWPJAS0477-56-32 07:31:007.3[facility] HospitalLnvdzoCMYCZCKSCW8569-22-86 07:31:0083.5[facility] CenterQtcstzRNPGEXVFNF5654-92-70 07:31:006.4[facility] CenterHEMATOLOGY 2014-10-15 07:31:77026KKO[facility] CenterDprwxlAHRHUGSJFY2309-18-50 07:31:0016.0[facility] CenterXxhzjfCCOJTBJPHA2404-87-06 07:31:00 Test Item Value Reference Range Interpretation Comments MCH (test code = MCH) 28.4 pg 27.0-31.0 [facility] CenterSwsxtmFNDGDMDJDU8248-14-44 07:31:0032.3[facility] NZHQPYTALT4407-05-10 07:31:0027.5[facility] CenterTofsolEFGHFHSZML6720-06-36 07:31:0087.7[facility] CenterKsyetxLNKSOKHCYU7819-84-97 07:31:008.9[facility] CenterMygbwaHNNCICHWZM4223-73-77 07:31:003.13[facility] CenterHEMATOLOGY 2014-10-15 07:31:0012.0[facility] CenterQonrqbHPNXEBBMIA9578-61-82 19:52:0010.0 [facility] CenterPARATHYROID DGCIATH1955-92-23 15:17:001.03[facility] CenterPARATHYROID DNKXISH9008-05-22 15:17:001.06[facility] OFQJEKMKAO2087-99-16 13:20:005.5[facility] CenterSemuheNSFQMCUMEM5360-52-79 05:36:001+ *ABN*(10/14/14 12:36 AM)[facility] CenterDvpdvhRPKBYYDHDU1479-42-29 05:36:00Moderate *ABN*(10/14/14 12:36 AM)[facility] CenterBLOOD BANK RESULTS 2014-10-13 08:30:00Negative (10/13/14 3:30 AM)[facility]BL[facility] RDVFIRD4132-64-24 07:44:00Modification Required (10/13/14 2:44 AM)[facility] CenterCHEM UVLWN1771-92-45 06:22:0012[facility] CenterCHEM PANEL 2014-10-13 06:22:001.4[facility] CenterCHEM LVFXF8838-16-18 06:22:006.[address] [place], [place] [address]CHEM AGEUT9978-46-56 06:22:0018[facility] CenterCHEM FJKKK9359-17-58 06:22:000.8[facility] CenterCHEM NDZGH5574-22-38 06:22:00 101[facility] CenterCHEM NPLDS2893-59-64 06:22:000.3[facility] HospitalCHE[facility] IFFFL6601-02-27 06:22:005.4[facility] CenterCHEM PANEL 2014-10-13 06:22:0016[facility] CenterCHEM WZENB4989-09-46 06:22:001.0[facility] CenterOdxgxsASMZWGXOTZ5083-55-89 06:22:001.0[facility] RJZZAGHAIK5930-50-70 06:22:00Moderate *ABN*(10/13/14 1:22 AM)[facility] CenterWpqerhOTOAJETRIE8551-83-88 06:22:00Normal (10/13/14 1:22 AM)[facility] CenterZxaolzCPAVNBMHLV4372-60-26 06:22:001+ *ABN*(10/13/14 1:22 AM)[facility] CenterGeknmuXYRBFUXPCT5875-45-55 06:22:001.0[facility] CenterHEMATOLOGY 2014-10-13 06:22:000.4[facility] CenterFpfkbmTFONNXTHSK1409-63-71 10:21:002.26[facility] CenterAoizqlQTXQFRFTFD2209-13-76 10:21:[address] [place] [address] QSEXJLEODU2133-77-01 10:21:006.5[facility] CenterNaqwxjDIGUFXGAZL9554-04-46 10:21:698398RAOakBend Medical CenterQfmvkdEZMCCQXXGK4838-48-90 10:21:[address] [place], [place] [address]OmcmugAYUSVYGNIY1457-34-16 10:21:0090.[address] [place], [place] [address]HEMATOLOGY 2014-10-10 10:21:00 Test Item Value Reference Range Interpretation Comments MCH (test code = MCH) 28.5 pg 27.0-31.0 [facility] CenterFnphsbFOTUHZIHJT7077-23-66 10:21:006.4[facility] YVIAWYAMGZ8804-45-65 10:21:[address] [place], [place] [address]OneevdLQFZNQWKNJ2194-56-33 10:21:0012.0[facility] CenterEytrsmYEQFFNSNED9651-64-57 10:21:[address] [place], [place] [address]KcfigzNVESVCLSQU7259-44-68 10:21:000[address] [place], [place] [address]HEMATOLOGY 2014-10-10 10:21:[address] [place], [place] [address]QdwqxwKHFBRCHWDT6601-74-92 10:21:[address] [place], [place] [address]GadmyfMMJRAPVSDQ9084-19-78 10:21:[address] [place] [address] TTUZMBJEDR8529-01-37 10:21:000.5[facility] CenterSqtgzdHDWVPWJGEZ8810-79-44 10:21:001.8[facility] CenterMwyczvJWMURLTSIX1724-28-63 10:21:[address] [place], [place] [address]WnmefhHYWPWWUYML7285-52-86 10:21:[address] [place], [place] [address]HEMATOLOGY 2014-10-10 10:21:0077.0[facility] CenterBjfasgVIKBERGOLY7476-12-45 10:22:000.1[facility] HospitalHuqayjDISZWBUDBO2989-92-33 10:22:001.1[facility] TYVWDWKDBQ2489-24-11 10:22:000.2[facility] HospitalPvqkxlVGNJFLDLVI0755-03-33 10:22:001.6[facility] HospitalEjmfpdEPEWLVQVYV5115-33-38 10:22:008.7[facility] CenterPblhrfGHIIOWPZNC2751-16-45 10:22:0081.5[facility] CenterHEMATOLOGY 2014-10-09 10:22:001.2[facility] HospitalBhujvnRYWCWWLBYT0126-77-16 10:22:007.7[facility] CenterActdfwPTVSDFRJXJ8218-29-57 10:22:[address] [place] [address] HGXUWIZMQS8378-17-30 10:22:000.5[facility] CenterFwtfbeOLSFRVYETC0939-83-07 10:22:0089.7[facility] CenterEjbetdFYYCQBXBMP7162-99-53 10:22:006.6[facility] HospitalMmwjriQZCZOSQCPG9422-30-58 10:22:00 Test Item Value Reference Range Interpretation Comments MCH (test code = MCH) 28.0 pg 27.0-31.0 [facility] CenterXltupmLBYSLXEKDN8913-23-34 10:22:[address] [place] [address] TKKJBSGYTU4836-23-22 10:22:002.35[facility] CenterLcnyfsKKQFGXKDGO3420-97-77 10:22:0013.8[facility] CenterIlmjvoNUDQGBLSQK6077-49-13 10:22:006.9[facility] CenterWcqpzoMDINJRJXDN3756-22-01 10:22:[address] [place], [place] [address]HEMATOLOGY 2014-10-09 10:22:0017.0[facility] CenterCouipjVWXTZRKFEW4825-93-61 10:22:426390 [facility] CenterGzylsrQFGXMMKMHD5289-38-90 08:16:0016.9[facility] VLBHDLBOYX9651-74-82 08:16:[address] [place], [place] [address]ZgzqyaTEJKUTZFXJ2398-25-97 08:16:32111IHOak[facility] Medical CenterTefjlsEBAGOPMDCI6930-17-47 08:16:006.9[facility] CenterRswtmuLSJNKYTOOG6411-56-66 08:16:00 Test Item Value Reference Range Interpretation Comments MCH (test code = MCH) 28.3 pg 27.0-31.0 [facility] CenterPlwecbYZPQQVKWWJ6469-70-22 08:16:002.71[facility] QFLMTFPXBA0236-02-13 08:16:007.7[facility] CenterNyezkoGADULDYEML4870-44-85 08:16:0024.5[facility] CenterTtxbxeATOCUSRKCA6418-06-32 08:16:0090.6[facility] HospitalJqfgaiDPABUSPNLT4222-38-15 08:16:0015.3MH[facility] HospitalCHEM PANEL 2014-10-07 10:22:002.8[facility] CenterCHEM JWYUB9102-02-02 10:22:002.0[facility] CenterCHEM BMZHI4633-26-91 10:22:78246WMOakBend Medical CenterCHEM JOXBZ9457-26-19 10:22:0015[facility] CenterCHEM OYIDY0733-92-84 10:22:0096 [facility] CenterCHE[facility] CIVII3031-60-66 10:22:0027[facility] CHEM ZYBBZ7428-14-96 10:22:007.[address] [place], [place] [address]CHEM ODYIB3024-08-88 10:22:85974CVOakBend Medical CenterCHEM LMABS6889-78-05 10:22:000.8[facility] CenterCHEM TMYAM8916-66-56 10:22:63188NHOakBend Medical CenterCHEM PANEL 2014-10-07 10:22:004.[address] [place], [place] [address]CHEM PYSEF3060-43-21 10:22:[address] [place], [place] [address]DrgwynZLCODWBOWX4765-52-23 10:22:000.9[facility] GUVLBMWQYG8419-45-61 10:22:[address] [place], [place] [address]LlwvnmTHHXPJTULI6003-42-96 10:22:[address] [place], [place] [address]OnpfncOKHUQGMPOR0276-41-32 10:22:001[address] [place], [place] [address]RnoeqfJABMMTVLZT4148-07-66 10:22:[address] [place], [place] [address]HEMATOLOGY 2014-10-07 10:22:0010.[address] [place], [place] [address]FneomwWOPDSMECHN1985-22-34 10:22:006.7[facility] CenterFsyhtiWNFLADKULY3561-25-48 10:22:001.5[facility] AYAOJQEZTW3228-91-38 10:22:000.6MH[facility] HospitalStnqykXBLGFHYFVU5042-98-89 10:22:0010.[address] [place], [place] [address]CHEM SXNQH7278-53-57 10:49:0096[facility] CenterCHEM KWYDF6777-69-53 10:49:62634DIOakBend Medical CenterCHEM PANEL 2014-10-06 10:49:0013[facility] CenterCHEM LMBGF6188-94-08 10:49:004.0[facility] CenterCHEM NGGJD9471-09-12 10:49:0028[facility] CenterCHEM SRHWP7449-33-83 10:49:10097ZAO[facility] Medical CenterCHEM OIXHE1106-40-33 10:49:00 103[facility] CenterCHEM FNHAX1529-33-80 10:49:007.8[facility] CenterCHEM ZRLDY7773-23-11 10:49:000.8[facility] CenterCHEM PANEL 2014-10-06 10:49:0012.0[facility] CenterCHEM YSOKX7401-01-87 10:49:002.[address] [place], [place] [address]CHEM LDUGF8578-49-39 10:49:002.7[facility] URINE AND RWMDK5108-14-44 20:37:00Negative (10/05/14 3:37 PM)[facility] CenterCHEM BRGEO5105-36-31 06:30:001.[address] [place], [place] [address]CHEM PANEL 2014-10-05 06:30:0091[facility] CenterCHEM UZJFR4640-18-42 06:30:[address] [place], [place] [address]CHEM OCXTB5435-77-32 06:30:49214BMOakBend Medical CenterCHEM EWAWQ5396-94-11 06:30:0024[facility] CenterCHEM DGWAO5762-51-93 06:30:00 139[facility] CenterCHEM WYIHS6569-70-99 06:30:[address] [place], [place] [address]CHEM WBDIZ6867-05-60 06:30:007.8[facility] CenterCHEM PANEL 2014-10-05 06:30:0014[facility] CenterCHEM XRVAF5633-66-85 06:30:000.[address] [place], [place] [address]CHEM FQNQE7739-15-12 06:30:0080[facility] CenterCHEM HQXUA8388-99-98 06:30:001.[address] [place], [place] [address]PARATHYROID SQDTLEO2514-02-32 06:30:001.05[facility] CenterPARATHYROID OUIJIUQ0386-15-53 06:30:001.04[facility] CenterBL[facility]OD [facility] NMLWACF9211-95-03 14:54:00Product available (10/04/14 9:54 AM)[facility]BL[facility] SKMWSVL9609-71-11 09:42:00 Negative (10/04/14 4:42 AM)[facility]BL[facility] FPYSYDA7076-57-85 16:16:00Product available (10/02/14 11:16 AM)[facility] CenterPARATHYROID YJZWGQR7770-51-34 05:47:001.09[facility] CenterPARATHYROID PROFILE 2014-10-02 05:47:001.06[facility] CenterCARDIAC VKAQIJE2514-07-75 07:37:00 1.0[facility] CenterCARDIAC ITYUMNM9612-04-91 07:37:002.3[facility] HospitalCARDIAC PMTQRJS1771-95-91 07:37:66747NJOakBend Medical CenterBLOOD BANK YRQUZVB5445-36-43 05:43:00Negative (09/30/14 12:43 AM)[facility] CARDIAC HHWIYXM0944-75-29 05:43:0033[facility] CenterCARDIAC ENZYMES 2014-09-30 00:58:0045[facility] CenterURINE AND VPHEG0344-06-87 19:36:00 Negative (09/29/14 2:36 PM)[facility] CenterUR[facility] DVRMJ7637-59-66 19:36:00Negative (09/29/14 2:36 PM)[facility] CenterUR[facility] STOOL 2014-09-29 19:36:004.0[facility] CenterUR[facility] MSBBU1157-67-76 19:36:00 Yellow *NA*(09/29/14 2:36 PM)[facility] VAWTB1837-96-83 19:36:00Clear (09/29/14 2:36 PM)[facility] CenterUR[facility] LCEAB2424-40-51 19:36:001.009[facility] CenterURINE AND PGLXW1986-58-86 19:36:005.5[facility] CenterUR[facility] AND ZBPGC6735-92-46 19:36:00Negative *NA*(09/29/14 2:36 PM)[facility]UR[facility] LBAEB2251-61-44 19:36:00Negative (09/29/14 2:36 PM)[facility]UR[facility] ZMEAM8683-47-55 19:36:001[facility] CenterCARDIAC QXAZXQE3940-10-36 17:06:00<0.02[facility] CARDIAC JNNHLVL1269-03-18 17:06:000.078[facility] CenterMYOGLOBIN 2014-09-29 17:06:0063[facility] CenterCARDIAC VIZFWZR8276-15-52 10:23:00 <0.010[facility] CenterCARDIAC AYUYQTW3981-60-48 10:23:000.03[facility] CenterFboafaUDVMCKZIK5639-14-75 10:23:0041[facility] CenterCARDIAC VSTGFPI3116-04-23 01:25:00<0.010[facility] CenterCARDIAC ENZYMES 2014-09-29 01:25:00<0.02[facility] CenterXaumawLDPFDSSWC9757-29-63 01:25:0037 [facility] [id number] 23:11:00Negative (09/27/14 6:11 PM)[facility] [id number] 23:11:001[facility] [id number] 23:11:006.0[facility] [id number] 23:11:001.011[facility] [id number] 23:11:00Yellow *NA*(09/27/14 6:11 PM)[facility] STOOL 2014-09-27 23:11:00Negative (09/27/14 6:11 PM)[facility] [id number] 23:11:00Negative *NA*(09/27/14 6:11 PM)[facility] URINE AND [id number] 23:11:00Negative (09/27/14 6:11 PM)[facility] [id number] 23:11:008.0[facility] [id number] 23:11:00Clear (09/27/14 6:11 PM)[facility]HEMATOLOGY 2014-09-26 14:21:000.31[facility] CenterPARATHYROID [id number] 05:37:001.13[facility] CenterPARATHYROID [id number] 05:37:001.15[facility] CenterCHEM [id number] 06:03:0017[facility] SPECIAL [id number] 06:03:0012.9[facility] CenterTHYROID PANEL 2014-09-21 06:03:001.770[facility] [id number] 03:57:00 Test Item Value Reference Range Interpretation Comments UA Spec Grav (test code = UA Spec 1.015 1 Grav) [facility] [id number] 03:57:00Clear (09/19/14 10:57 PM) [facility] [id number] 03:57:00Negative (09/19/14 10:57 PM)[facility] [id number] 03:57:00Negative (09/19/14 10:57 PM)[facility] [id number] 03:57:000.2[facility] [id number] 03:57:00Small *ABN*(09/19/14 10:57 PM)[facility] [id number] 03:57:00 Test Item Value Reference Range Interpretation Comments UA pH (test code = UA pH) 5.0 1 5.0-8.0 [facility] [id number] 03:57:00Negative *NA*(09/19/14 10:57 PM)[facility] [id number] 03:57:00Negative (09/19/14 10:57 PM)[facility] [id number] 03:57:00Yellow *NA*(09/19/14 10:57 PM)[facility] [id number] 03:57:00 None Seen (09/19/14 10:57 PM)[facility] [id number] 03:57:00None Seen (09/19/14 10:57 PM)[facility] CenterBL[facility] RESULTS 2014-09-19 23:04:00Negative (09/19/14 6:04 PM)[facility] CenterCHEM PANEL 2014-09-19 23:04:002.2M[facility] CampusPoetctTNKMEQTOOX8548-98-58 23:04:001.7[facility] 23:04:00 Test Item Value Reference Range Interpretation Comments R-time (test code = R-time) 0.7 min 0.4-0.7 [facility]2015-04-06 23:04:00 Test Item Value Reference Range Interpretation Comments Split Point (test code = Split Point) 0.5 min [facility]2015-04-06 23:04:00 Test Item Value Reference Range Interpretation Comments ACT (TEG) (test code = ACT (TEG)) 113 s 86-118 [facility]2015-[facility]-06 23:04:00 Test Item Value Reference Range Interpretation Comments Angle (test code = Angle) 75 degrees 64-80 [facility]2015-04-06 23:04:00 Test Item Value Reference Range Interpretation Comments K-time (test code = K-time) 1.2 min 0.6-2.3 [facility]2015-04-06 23:04:[address] [place] [address] [id number] 23:04:00 Test Item Value Reference Range Interpretation Comments Max Amp (test code = Max Amp) 67 mm 52-71 [facility] CenterSxbtgwPCJRDCRUVE8600-33-60 23:04:00Normal (09/19/14 6:04 PM)[facility]2015-04-06 23:04:00Normal (09/19/14 6:04 PM)[facility] CenterHrhgreFQCYVHJUQS4735-75-98 23:04:00Negative *NA*(09/19/14 6:04 PM)[facility] CenterYxhrcqFKJBFQEJFP2636-77-97 23:04:00<0.003[facility] CenterFhnwxlTYYGPCHXZS9333-14-46 23:04:00<3[facility]
--- OUTSIDE RECORDS SUMMARY | 2019-11-03 22:36 | XMS REPORT ---
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
--- OUTSIDE RECORDS SUMMARY | 2019-11-03 22:36 | XMS REPORT ---
:1950 Author Organization eClinicalWorks Care Team Providers Name Role Phone Macy Castellano Provider Role Unavailable Allergies No Known Allergies Problems Problem Type Condition Code Onset Dates Condition Statu s Problem Chronic kidney disease, unspecified N18.9 Active CKD stage Problem Hypertension, unspecified type I10 Active Problem Essential hypertension I10 Activ e Problem History of nephrectomy Z90.5 Activ e Problem Hypercholesterolemia E78.00 Active Problem Type 2 diabetes mellitus with E11.22 Active diabetic chronic kidney disease Problem Type 2 diabetes mellitus with E11.65 Active hyperglycemia 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
--- OUTSIDE RECORDS SUMMARY | 2019-11-03 22:36 | XMS REPORT ---
[...] diabetes mellitus with E11.65 Active hyperglycemia Problem correction current use of insulin Z79.4 Active Problem Peripheral edema R60.9 Active Medications No Known Medications Results No Known Results Summary Purpose eClinicalWorks Submission
--- OUTSIDE RECORDS SUMMARY | 2019-11-03 22:36 | XMS REPORT ---
:1950 Author Organization eClinicalWorks Care Team Providers Name Role Phone Macy Castellano Provider Role Unavailable Allergies, Adverse Reactions, Alerts Substance Reaction Event Type N.K.D.A. 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 Active Problem Essential hypertension I10 Activ e Problem Type 2 diabetes mellitus with E11.65 Active hyperglycemia Problem Chronic kidney disease, unspecified N18.9 Active CKD stage Problem Peripheral edema R60.9 Active Problem Type 2 diabetes mellitus with E11.22 Active diabetic chronic kidney disease Assessment penitentiary current use of insulin Z79.4 Active Assessment Type 2 diabetes mellitus with E11.22 Active diabetic chronic kidney disease Assessment History of nephrectomy Z90.5 Activ e Assessment Peripheral edema R60.9 Active Assessment Chronic kidney disease, unspecified N18.9 Active CKD stage Assessment Lipid screening Z13.220 Active Medications Medication Code Code Instructions Start End Status Dosage System Date [facility] 92117499646 8.4 GM Orally Active 1 pac ket Once a day with food Lipitor ND 79911012302 20 MG Orally Inactive 1 tabl et Once a day in evening NovoLog [facility] 98634190714 100 UNIT/ML September Active as Flexpen Subcutaneous 2017 directed Units with each meal Amlodipine ND 65663871420 10 MG Orally Active 1 ta blet Besylate Once daily HydrALAZINE ND 41825971091 50 MG Orally Active 1 t ablet HCl Three times a with food day one touch NDC 0 33G 3 times a Feb 19Feb Active as lancets day 2017 Aspirin Adult [facility] 51321407777 81 MG Orally Active 1 tablet Low Dose Once a day Metoprolol ND 25128511811 50 MG Orally Active 1 ta blet Tartrate Twice a day Furosemide [facility] 97782791018 20 mg Orally Active 1 ta blet Once a day as needed for leg swelling Levemir [facility] 43067755728 100 UNIT/ML September Active 65 units FlexTouch Subcutaneous 2017 Once daily Carvedilol [facility] 90571881124 25 MG Orally Active 1 ta blet Twice daily Doxazosin [facility] 27480640773 1 MG Orally September Active 1 tabl et Mesylate Once a day 2017 in evening BD Pen Needle [facility] 00740040334 31G X 5 MM September Active as Mini U/F Subcutaneous As 2017 direct ed directed 4x daily One Touch [facility] 922568785141 1 In Vitro Feb 19Feb Active as Ultra Test three times 2017 06, directed Strips daily 2018 Results No Known Results Summary Purpose eClinicalWorks Submission
--- OUTSIDE RECORDS SUMMARY | 2019-11-03 22:36 | XMS REPORT ---
:1950 Author Organization eClinicalWorks Care Team Providers Name Role Phone Macy Castellano Provider Role Unavailable Allergies No Known Allergies Problems Problem Type Condition Code Onset Dates Condition Statu s Assessment Hypertension, unspecified type I10 Active Problem Hypertension, unspecified type I10 Active Problem History of nephrectomy Z90.5 Activ e Problem senior living current use of insulin Z79.4 Active Problem Essential hypertension I10 Activ e Problem Type 2 diabetes mellitus with E11.65 Active hyperglycemia Problem Chronic kidney disease, unspecified N18.9 Active CKD stage Problem Peripheral edema R60.9 Active Problem Type 2 diabetes mellitus with E11.22 Active diabetic chronic kidney disease Medications Medication Code Code Instructions Start End Status Dosage System Date Date Doxazosin [facility] 99864171972 1 MG Orally Once September 17, Active 1 tablet Mesylate a day 2018 in evening Results No Known Results Summary Purpose eClinicalWorks Submission
--- OUTSIDE RECORDS SUMMARY | 2019-11-03 22:36 | XMS REPORT ---
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 Assessment Hypertension, unspecified type I10 Active Medications Medication Code Code Instructions Start End Status Dosage System Date Date Aspirin Adult [facility] 84333754475 81 MG Orally Active 1 tablet Low Dose Once a day HydrALAZINE HCl ND 26260330706 100 MG Orally Active 1 tablet Three times a with food day Furosemide [facility] 35466718592 20 mg Orally Active 1 ta blet as Once a day needed for leg swelling OneTouch Ultra [facility] 18979327122 - Active TEST 3 Test TIMES A DAY NovoLog Flexpen ND 76607946404 100 UNIT/ML September Active as directed Subcutaneous 2017 Units with each meal Doxazosin ND 21601377933 2 MG Orally Active 1 tabl et in Mesylate Once a day evening Levemir ND 02850870101 100 UNIT/ML Active 70 units FlexTouch Subcutaneous Once daily Metoprolol [facility] 32884980491 50 MG Orally Active 1 ta blet Tartrate Twice a day BD Pen Needle [facility] 15097129544 31G X 5 MM September Active as directed Mini U/F Subcutaneous As 2017 directed 4x daily [place]elt[place] [facility] 90768868421 8.4 GM Orally Active 1 pac ket Once a day with food Amlodipine [facility] 23077624113 10 MG Orally Active 1 ta blet Besylate Once daily Carvedilol [facility] 05739582739 25 MG Orally Active 2 ta blets Twice daily (50 mg) Lipitor [facility] 50007783829 20 MG Orally Jun 28, Active 1 table t Once a day in 2019 evening for high cholesterol Results No Known Results Summary Purpose eClinicalWorks Submission
--- OUTSIDE RECORDS SUMMARY | 2019-11-03 22:36 | XMS REPORT ---
:1950 Author Organization eClinicalWorks Care Team Providers Name Role Phone Macy Castellano Provider Role Unavailable Allergies No Known Allergies Problems Problem Type Condition Code Onset Dates Condition Statu s Problem Hypertension, unspecified type I10 Active Problem History of nephrectomy Z90.5 Activ e Problem custodial current use of insulin Z79.4 Active Problem [...]
--- OUTSIDE RECORDS SUMMARY | 2019-11-03 22:36 | XMS REPORT ---
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 Problem Peripheral edema R60.9 Active Assessment History of nephrectomy Z90.5 Activ e Assessment Type 2 diabetes mellitus with E11.22 Active diabetic chronic kidney disease Assessment Peripheral edema R60.9 Active Assessment Chronic kidney disease, unspecified N18.9 Active CKD stage Assessment Hypercholesterolemia E78.00 Active Assessment assisted current use of insulin Z79.4 Active Assessment Hypertension, unspecified type I10 Active Medications Medication Code Code Instructions Start End Status Dosage System Date Date Carvedilol [facility] 14656181088 25 MG Orally Active 2 ta blets Twice daily (50 mg) Doxazosin [facility] 87374067684 2 MG Orally Active 1 tabl et in Mesylate Once a day evening HydrALAZINE HCl [facility] 75482491082 100 MG Orally Active 1 tablet Three times a with food day OneTouch Ultra [facility] 60278913601 - Active TEST 3 Test TIMES A DAY Amlodipine [facility] 62917645588 10 MG Orally Active 1 ta blet Besylate Once daily BD Pen Needle [facility] 29678569276 31G X 5 MM September Active as directed Mini U/F Subcutaneous As 2017 directed 4x daily Aspirin Adult [facility] 20669618833 81 MG Orally Active 1 tablet Low Dose Once a day [place]elt[place] [facility] 00292046329 8.4 GM Orally Active 1 pac ket Once a day with food Metoprolol [facility] 02960455117 50 MG Orally Active 1 ta blet Tartrate Twice a day Furosemide [facility] 98098724471 20 mg Orally Active 1 ta blet as Once a day needed for leg swelling Lipitor [facility] 41497251776 20 MG Orally Active 1 table t Once a day in evening for high cholesterol NovoLog Flexpen [facility] 59317544100 100 UNIT/ML September Active as directed Subcutaneous 2017 Units with each meal Levemir [facility] 01095336809 100 UNIT/ML Active 70 units FlexTouch Subcutaneous Once daily Results No Known Results Summary Purpose eClinicalWorks Submission
[2019-11-03 23:00] VITALS: BMI 25.3
[2019-11-03] MEDS ORDERED: VANCOMYCIN/NS 1 gm 1 GM/250 ML BAG IVPB SCH (23:45)
[2019-11-03] MEDS ORDERED: NA CHLORIDE 0.9% 1,000 ML IV SCH (23:45)
[2019-11-03] MEDS ORDERED: ACETAMINOPHEN 500 MG TAB PO PRN (23:52)
[2019-11-03] MEDS ORDERED: ONDANSETRON 4 MG/2 ML VIAL IV PRN (23:52)
[2019-11-04] MEDS ORDERED: VANCOMYCIN 1.5 GM in NA CHLORIDE 0.9% 500 ML IVPB SCH (01:00)
[2019-11-04] MEDS ORDERED: VANCOMYCIN 1 GM/VIAL ONE (01:08)
[2019-11-04] MEDS ORDERED: VANCOMYCIN 500 MG/VIAL ONE (01:09)
[2019-11-04] MEDS ORDERED: PIPERACIL/TAZO 3.375 GM VIAL IV ONE (01:12)
[2019-11-04] MEDS ORDERED: NA CHLORIDE 0.9% 100 ML ONE (01:12)
[2019-11-04] MEDS ORDERED: NA CHLORIDE 0.9% 250 ML ONE (01:13)
--- NOTE | 2019-11-04 03:05 | P.HP ---
Certification for Inpatient Patient admitted to: Inpatient With expected LOS: >2 Midnights Patient will require the following post-hospital care: None Practitioner: I am a practitioner with admitting privileges, knowledge of patient current condition, hospital course, and medical plan of care. Services: Services provided to patient in accordance with Admission requirements found in Title 42 Section 412.3 of the Code of Federal Regulations Patient History Date of Service: 11/03/19 Reason for admission: FOREIGN BODY WITH LEFT FOOT CELLULITIS History of Present Illness: Patient is a 69-year-old gentleman who came to the hospital with cellulitis of the left foot. Patient has stepped on a foreign body couple of days ago. They gotten that it within the foot. Patient was not able to get this out. The foot started turning red and becoming painful. Patient came to the ER at [facility] for evaluation. Patient was felt to have a significant cellulitis and was admitted/transferred to our hospital for further evaluation. Allergies No Known Allergies Allergy (Verified 11/03/19 23:03) Home Medications: Insulin Detemir [Levemir Flextouch] 50 units SQ DAILY 11/03/19 - Past Medical/Surgical History Has patient received pneumonia vaccine in the past: No Diabetic: Yes -: Diabetes -: htn -: cyst right kidney -: knee replacement 2009 -: Amputation finger 1980 -: Spinal surgery (bonnet screws) 2013 - Family History Father Family History: Reviewed- Non-Contributory - Social History Smoking Status: Never smoker Alcohol use: No CD- Drugs: No Caffeine use: Yes Place of Residence: Home Review of Systems 10-point ROS is otherwise unremarkable Physical Examination - Vital Signs Temperature: 98.1 F Blood Pressure: 185/81 Pulse: 105 Respirations: 18 Pulse Ox (%): 98 - Physical Exam General: Alert, In no apparent distress, Oriented x3 HEENT: Atraumatic, PERRLA, Mucous membr. moist/pink, EOMI, Sclerae nonicteric Neck: Supple, 2+ carotid pulse no bruit, No LAD, Without JVD or thyroid abnormality Respiratory: Clear to auscultation bilaterally, Normal air movement Cardiovascular: Regular rate/rhythm, Normal S1 S2 Gastrointestinal: Normal bowel sounds, Soft and benign, Non-distended, No tenderness Musculoskeletal: No clubbing, No swelling, Erythema, Tenderness, Other (Left foot cellulitis erythema) Integumentary: No rashes, Tenderness/swelling (Left foot cellulitis and erythema), Erythema, Warmth Neurological: Normal gait, Normal speech, Normal strength at 5/5 x4 extr, Normal tone, Sensation intact, Cranial nerves 3-12 intact, Normal affect Lymphatics: No axilla or inguinal lymphadenopathy Assessment & Plan - Problems (Diagnosis) (1) Cellulitis of left foot Current Visit: Yes Status: Acute (2) Foreign body in left foot Current Visit: Yes Status: Acute (3) Diabetes mellitus Current Visit: No Status: Acute (4) Hyperlipidemia Current Visit: No Status: Acute (5) Hypertension Current Visit: No Status: Acute (6) Overweight (BMI 25.0-29.9) Current Visit: No Status: Acute - Plan 1. Continue with IV antibiotic 2. Continue with local wound care 3. Wound care consultation/surgical consultation 4. Gentle IV hydration 5. Monitor CBC 6. Strict blood sugar monitoring 7. Pain control 8. GI and DVT prophylaxis Discharge Plan: Home Plan to discharge in: Greater than 2 days - Advance Directives Does patient have a Living Will: No Does patient have a Durable POA for Healthcare: No - Code Status/Comfort Care Code Status Assessed: Yes Code Status: Full Code Critical Care: No Time Spent Managing PTS Care (In Minutes): 40
[2019-11-04] MEDS: PIPER/TAZO/NS 3.375gm 3.375 GM/100 ML BAG IVPB SCH ×2 (05:03)
[2019-11-04 05:56] LABS: Protime INR 0.97
[2019-11-04 06:08] LABS: Basophils % 0.6 % (0-1.3); Lymphocytes % 13.3 % (15.3-44.8); MPV 8.6 fL (7.6-11.3); RBC Red Blood Cell Count 3.15 M/uL (4.33-5.43)
[2019-11-04 06:12] LABS: Potassium 4.9 mmol/L (3.5-5.1)
[2019-11-04] MEDS ORDERED: PIPER/TAZO/NS 2.25gm 2.25 GM/50 ML BAG IV SCH (07:30)
[2019-11-04] MEDS: INSULIN GLARGINE 100 UNITS/ML SQ SCH (07:57)
[2019-11-04] MEDS: MORPHINE 4 MG/ML SYR IV PRN ×2 (08:04→18:10)
--- NOTE | 2019-11-04 08:32 | P.PN ---
Subjective Date of Service: 11/04/19 Subjective: No new changes, No C/O voiced, Improving X-rays today and surgery consultation as well; results are pending today Review of Systems 10-point ROS is otherwise unremarkable Physical Examination - Vital Signs Temperature: 98.1 F Blood Pressure: 185/81 Pulse: 105 Respirations: 18 Pulse Ox (%): 98 - Physical Exam General: Alert, In no apparent distress, Oriented x3 Respiratory: Clear to auscultation bilaterally, Normal air movement Cardiovascular: Regular rate/rhythm, Normal S1 S2, No murmurs Gastrointestinal: Normal bowel sounds, Soft and benign, Non-distended, W/out splenomegaly, No tenderness Musculoskeletal: No clubbing, Swelling, Erythema, Tenderness Integumentary: Tenderness/swelling, Erythema - Studies Laboratory Data (last 24 hrs) 11/04/19 05:32: Sodium 145, Potassium 4.9, BUN 64 H, Creatinine 3.13 H, Glucose 185 H 11/04/19 05:32: WBC 7.7, Hgb 9.3 L, Hct 28.0 L, Plt Count 233 11/04/19 05:23: PT 11.5, INR 0.97, APTT 28.3 Assessment & Plan - Problems (Diagnosis) (1) Cellulitis of left foot Current Visit: Yes Status: Acute (2) Foreign body in left foot Current Visit: Yes Status: Acute (3) Diabetes mellitus Current Visit: No Status: Acute (4) Hyperlipidemia Current Visit: No Status: Acute (5) Hypertension Current Visit: No Status: Acute (6) Overweight (BMI 25.0-29.9) Current Visit: No Status: Acute - Plan Continue with current plan of care as mentioned below 1. Continue with IV antibiotic 2. Await surgery consultation 3. Surgical consultation pending 4. Gentle IV hydration 5. Monitor CBC 6. Strict blood sugar monitoring 7. Pain control 8. GI and DVT prophylaxis Discharge Plan: Home Plan to discharge in: Greater than 2 days - Advance Directives Does patient have a Living Will: No Does patient have a Durable POA for Healthcare: No - Code Status/Comfort Care Code Status: Full Code
--- NOTE | 2019-11-04 09:35 | RAD REPORT ---
EXAM DESCRIPTION: RAD - Foot Left 3 View - 11/04/2019 9:27 am CLINICAL HISTORY: Foreign body of the left foot, puncture wound, foot pain COMPARISON: No comparisons FINDINGS: No fracture, dislocation or periosteal reaction. No acute or destructive bony process. Pa tient has a large plantar spur are. Midfoot degenerative changes are present. A thin linear 3-4 mm long radiopaque foreign body is present in the deep soft tissues plantar surface of the foot near the medial margin of the fourth proximal phalanx. IMPRESSION: A thin linear foreign body is present as detailed near the base of the fourth proximal p halanx plantar surface.
[2019-11-04] MEDS: NA CHLORIDE 0.9% 1,000 ML IV SCH (13:00)
--- NOTE | 2019-11-04 14:16 | P.CNS ---
Date of Consult: 11/04/19 PC: This 69-year-old male presented to a local ER for evaluation of pain in his foot. HPC: Patient apparently stepped on something, has pain in discomfort in his left foot. Also noticed some swelling on the sole. PMH: Diabetes, hypertension PSHx: Previous knee surgery, amputation of distal in the finger SOC: On insulin, no known allergies SYS REVIEW: States he is otherwise a healthy male, no cough wheeze shortness of breath. No chest pain or palpitations no urinary complaints O/E awake alert vital signs are stable HEENT: Within normal limits Chest: Chest movement equal bilaterally ABD: Soft nontender LOCO: On the sole of the left foot has a small puncture area seen. It is exquisitely painful to the touch particularly on the plantar surface DATA: X-ray shows a small metal foreign body at the head of the 4th metatarsal IMPRESSION: Foreign body in the foot PLAN: I will take him to the operating room and under fluoroscopy see free cannot find and locate this foreign body for him. The risks of this procedure have been explained. The possibility of bleeding, infection, injury to surrounding blood vessels and nerves were explained. The possibility that we cannot find or dislodge the foreign body was also outlined. He understands and wants us to proceed.
[2019-11-04] MEDS ORDERED: LIDOCAINE 2% MPF 5 ML VIAL ONE (14:24)
[2019-11-04] MEDS ORDERED: propofoL 200 MG/20 ML VIAL IV ONE (14:24)
[2019-11-04] MEDS ORDERED: FENTANYL CITR 100 MCG/2 ML ONE (14:25)
[2019-11-04] MEDS ORDERED: ONDANSETRON 4 MG/2 ML VIAL ONE ×2 (15:06→15:21)
[2019-11-04] MEDS ORDERED: Phenylephrine HCl 10 MG/ML 1 ML VIAL ONE (15:07)
[2019-11-04] MEDS ORDERED: GLYCOPYRROLATE 0.2 MG/ML SYR ONE (15:09)
--- NOTE | 2019-11-04 15:23 | P.OP ---
Preoperative diagnosis: Foreign body in the right foot Postoperative diagnosis: The same Primary procedure: Exploration of wound and of plantar surface right foot he Secondary procedure: Removal of foreign body from the right foot Anesthesia: Mac Estimated blood loss: Less than 10 cc Specimen: Sent for identification Operative Technique: The patient brought the operating room placed supine on the OR table. The right foot was then prepped with a Betadine solution, draped in usual aseptic manner. Attention was turned towards the dorsum of the foot. We could see that there was a puncture zohra this area. Taking a 22 gauge needle attached to a syringe were able to gently pass an Pro it down a tract that had formed in the dorsum of the foot. Under fluoroscopy we could see the sinus down to the City of this foreign body. The needle with a was withdrawn from the tract. We widened the skin edges by another 2 mm to allow the tip of a mosquito hemostat to be inserted. Now using fluoroscopy were able to manipulate the mosquito until the foreign body was able to be grasped. Holding firm pressure it was removed from this tract. It was then sent for identification. The tract itself was identified. It was OE lightly curetted with a curette and left open. A sterile dressing was then applied At the end of procedure he was in a stable condition when sent to the recovery room. Needle sponge instrument count were correct. Complications: None Transferred to: Recovery Room Condition: Good
[2019-11-04] MEDS ORDERED: CODEINE 30MG/APAP 300MG TAB PO PRN (15:27)
[2019-11-04] MEDS ORDERED: NA CHLORIDE 0.9% 1,000 ML ONE (15:39)
--- NOTE | 2019-11-04 15:40 | RAD REPORT ---
EXAM DESCRIPTION: RAD - Foot Left 2 View - 11/04/2019 3:33 pm CLINICAL HISTORY: Foreign body removal FINDINGS: Three fluoroscopic spot images obtained. Fluoroscopy time 3.4 minutes Procedure was performed by Dr. Fiore
[2019-11-04] MEDS: carvediloL 25 MG TAB PO SCH ×2 (16:47→20:52)
--- NOTE | 2019-11-04 16:53 | CON ---
Date of Consultation: 11/04/2019 Reason For Consultation: Elevated BUN and creatinine, chronic kidney disease, hypertension. History Of Present Illness: This is a pleasant, 69-year-old gentleman, well known to me from the off ice with significant past medical history of chronic kidney disease secondary to solitary kidney/diab etic nephropathy. Baseline creatinine back in August, GFR around 20. The patient apparently was in h is regular state of health. Patient had stepped on a foreign body 2 days ago, went to his primary, ould not remove it as outpatient. Patient started having more swelling and redness, for that reason reported to the hospital, found to have infection locally. Lab data showed creatinine 3, GFR of 20. For that reason, we have been consulted. Past Medical History: Includes, 1.Diabetes. 2.Chronic kidney disease stage 4, secondary to diabetic nephropathy/solitary kidney. 3.Renal cyst. 4.Peripheral vascular disease, status post toe amputation. 5.Spinal surgery. Past Surgical History: Includes, 1.Nephrectomy. 2.Knee replacement. 3.Finger amputation. 4.Spinal surgery. Allergies: NO KNOWN DRUGS ALLERGY. Family History: Positive for hypertension. Social History: Denies smoking, denies drinking, denies drugs abuse. Review of Systems: Head and Neck: No red eye. No ear pain. GI: No nausea, no vomiting. : No polyuria, no dysuria, no hematuria. ADJ[employer]CT [employer]ISH IN[employer]CTOR: Not applicable. Respiratory: No shortness of breath. Cardiovascular: No chest pain. Endocrine: No polydipsia. Skin: No rash. Neurologic: Neuropathy. Musculoskeletal: Foot pain. Physical Examination: Vital Signs: When I saw the patient, blood pressure 185/81, pulse of 105, afebrile. Patient had goo d urine output of 600. Chest: Clear to auscultation. Heart: S1, S2 regular. Abdomen: Soft, nontender. EXTREMITIES: Redness with swelling on the left foot. Laboratory Data: Sodium 145, potassium 4.9, bicarb 20, BUN 64, creatinine 3.3, GFR of 20, calcium 8. 1. Urine: +2 edema. Renal ultrasound showing a solitary kidney, left kidney 13, right nephrectomy. No hydronephrosis. Current Medications: The patient on include cefepime, vancomycin, Zofran, insulin, IV fluid at 75 pe r hour. Assessment And Plan: 1.Chronic kidney disease stage 4, secondary to diabetic nephropathy/hypertension, nephrosclerosis/so litary kidney, stable on baseline normal volume. I am going to go ahead and decrease IV fluid to 50 per hour. We will follow up the patient closely as the patient is going to undergo possible surgery. I am going to hold on the diuresis for the time being. 2.Hypertension, not controlled. We will resume Cardura and carvedilol and we will monitor. 3.Diabetes, as by primary. 4.Foot infection, secondary to traumatic foreign body. We will follow up with Surgery. We will mon itor vancomycin trough. 5.Anemia of chronic kidney disease. We will send for anemia workup. I am going to repeat serum pro tein electrophoresis. Thank you, Dr. Cherry, for allowing us to participate in the care of your patient. ZEINA Voice ID: [id number] Report ID: [id number]
[2019-11-04] MEDS: HYDRALAZINE HCL 25 MG TABLET PO SCH (20:51)
[2019-11-04] MEDS ORDERED: HOME MED 1 EA UNK (Hydralazine Hcl [Apresoline] 100 MG) PO SCH (21:00)
[2019-11-04] MEDS ORDERED: CEFEPIME/SWI 1gm 10 ML IV SCH (21:00)
[2019-11-04 22:26] VITALS: O2SAT 96
[2019-11-04 23:23] LABS: Urine Appearance CLEAR; Urine Bilirubin NEGATIVE (NEG); Urine Blood NEGATIVE (NEG); Urine Color YELLOW; Urine Glucose 2+ (NEG); Urine Protein 2+ (NEG); Urine Specific Gravity 1.015 (1.005-1.030); Urine Urobilinogen 0.2 mg/dL (0.2-1.0)
[2019-11-04 23:24] LABS: Urine Microscopic Reflex ORDER UMIC
[2019-11-04 23:55] LABS: Urine Protein/Creatinine Ratio 1.5 ratio (<0.15)
[2019-11-04 23:56] LABS: Urine Bacteria <20 /HPF (NONE SEEN); Urine Culture Reflex Order NOT NEEDED; Urine RBC <5 /HPF (NONE SEEN)
[2019-11-05] MEDS: MORPHINE 4 MG/ML SYR IV PRN (01:31)
[2019-11-05 05:24] LABS: RBC Red Blood Cell Count 3.11 M/uL (4.33-5.43)
[2019-11-05] MEDS ORDERED: VANCOMYCIN 1.5 GM in NA CHLORIDE 0.9% 500 ML IVPB SCH (06:00)
[2019-11-05 07:13] LABS: Rheumatoid Factor NEG (NEG)
[2019-11-05] MEDS: NA CHLORIDE 0.9% 1,000 ML IV SCH (08:13)
[2019-11-05] MEDS: INSULIN GLARGINE 100 UNITS/ML SQ SCH (08:20)
[2019-11-05] MEDS: HYDRALAZINE HCL 25 MG TABLET PO SCH ×2 (08:20→13:53)
[2019-11-05] MEDS: carvediloL 25 MG TAB PO SCH (08:21)
[2019-11-05 08:39] LABS: Albumin 2.5 g/dL (3.4-5.0); Ferritin 132.7 ng/mL (26-388); Phosphorus 2.9 mg/dL (2.5-4.9); Potassium 4.9 mmol/L (3.5-5.1); Thyroid Stimulating Hormone 2.01 uIU/mL (0.360-3.740)
[2019-11-05 08:45] LABS: Uric Acid 5.3 mg/dL (3.5-7.2)
[2019-11-05] MEDS ORDERED: ASPIRIN 81 MG CHEWABLE TABLET PO SCH (09:00)
[2019-11-05] MEDS ORDERED: FUROSEMIDE 40 MG TABLET PO SCH (09:00)
[2019-11-05] MEDS ORDERED: allopurinoL 100 MG TAB PO SCH (09:00)
[2019-11-05] MEDS ORDERED: DOXAZOSIN 2 MG TAB PO SCH (09:00)
--- NOTE | 2019-11-05 09:44 | P.PN ---
Subjective Date of Service: 11/05/19 Patient status post surgery of the left foot. Foreign body was removed and foot was debrided. Patient still with erythema. Patient's foot still painful on examination. Will need to continue with IV antibiotics. Renal function has slightly improved. Appreciate Nephrology's assistant to the ceo. Review of Systems 10-point ROS is otherwise unremarkable Physical Examination - Vital Signs Temperature: 98.3 F Blood Pressure: 170/80 Pulse: 83 Respirations: 15 Pulse Ox (%): 96 - Physical Exam General: Alert, In no apparent distress, Oriented x3 Respiratory: Clear to auscultation bilaterally, Normal air movement Cardiovascular: No edema, Normal pulses, Regular rate/rhythm Gastrointestinal: Normal bowel sounds, Soft and benign, Non-distended Musculoskeletal: No clubbing, Swelling, Erythema, Tenderness, Warmth Integumentary: Tenderness/swelling, Erythema, Warmth - Studies Laboratory Data (last 24 hrs) 11/05/19 04:16: Sodium 146 H, Potassium 4.9, BUN 45 H, Creatinine 2.66 H, Glucose 155 H, Uric Acid 5.3, Phosphorus 2.9 Assessment & Plan - Problems (Diagnosis) (1) Cellulitis of left foot Current Visit: Yes Status: Acute (2) Foreign body in left foot Current Visit: Yes Status: Acute (3) Diabetes mellitus Current Visit: No Status: Acute (4) Hyperlipidemia Current Visit: No Status: Acute (5) Hypertension Current Visit: No Status: Acute (6) Overweight (BMI 25.0-29.9) Current Visit: No Status: Acute - Plan Continue with current plan of care as mentioned below 1. Continue with IV antibiotic 2. Appreciate surgery consultation 3. Continue with wound care locally 4. Gentle IV hydration 5. Monitor CBC along with renal function 6. Strict blood sugar monitoring 7. Pain control 8. GI and DVT prophylaxis Discharge Plan: Home Plan to discharge in: Greater than 2 days - Advance Directives Does patient have a Living Will: No Does patient have a Durable POA for Healthcare: No - Code Status/Comfort Care Code Status: Full Code Critical Care: No Time Spent Managing PTS Care (In Minutes): 35
--- NOTE | 2019-11-05 11:57 | P.PN ---
Subjective Date of Service: 11/05/19 Chief Complaint: FOREIGN BODY WITH LEFT FOOT CELLULITIS Subjective 69-year-old man with PMhx of diabetic CKD, baseline cr ~3.0 , had foot ulcer after stepping on foreign body today S/O debridement cr improved to 2.7 will dc IVF can start on PO iron and b12 cleared for discharge from nephrology point of view physical exam general: AAOX3, NAD , Neck; Supple, No elevated JVD hear: RRR, normal S1,2 no murmur or rub Chest: CTAB, no rlaes or wheezes Abdomen: Soft , Nt Extremities Lt foot dreessing with trace edema, Rt foot no edema, Assessment And Plan: CKD IV due to DM CR improved cont to hold lasix will dc IVF renal dose meds Lt foot ulcer S/P debriment cont Abx DM as per primary HTN controlled anemia of chronic disesae low iron and b12 will avoid IV iron start PO iron and b12 total time spent 35min Physical Examination - Vital Signs Temperature: 98.3 F Blood Pressure: 170/80 Pulse: 83 Respirations: 15 Pulse Ox (%): 96 - Studies Laboratory Data (last 24 hrs) 11/05/19 04:16: Sodium 146 H, Potassium 4.9, BUN 45 H, Creatinine 2.66 H, Glucose 155 H, Uric Acid 5.3, Phosphorus 2.9
--- NOTE | 2019-11-05 13:56 | P.PN ---
Date of Service: 11/05/19 S: Patient states he is foot feels better today, still a little bit sore. O: Foot much improved, dressing intact A: Surgically stable status post removal of foreign body from right foot P: Patient to be discharged from a surgical standpoint. He is been advised about wound care and dressing changes. He will see me next week in my office, he is to call for an appointment. Any questions or problems, he will return to the emergency room, or contact me
[2019-11-05 17:51] VITALS: BP 178/81; TEMP 98.6
--- NOTE | 2019-11-06 01:14 | P.DS ---
Discharge Date: 11/05/19 Disposition: ROUTINE DISCHARGE Discharge Condition: GOOD Reason for Admission: FOREIGN BODY WITH LEFT FOOT CELLULITIS Consultations: General surgery Nephrology - Problems (1) Cellulitis of left foot Status: Acute (2) Foreign body in left foot Status: Acute (3) Diabetes mellitus Status: Acute (4) Hyperlipidemia Status: Acute (5) Hypertension Status: Acute (6) Overweight (BMI 25.0-29.9) Status: Acute Brief History of Present Illness: Patient is a 69-year-old gentleman who came to the hospital with cellulitis of the left foot. Patient has stepped on a foreign body couple of days ago. They gotten that it within the foot. Patient was not able to get this out. The foot started turning red and becoming painful. Patient came to the ER at [facility] for evaluation. Patient was felt to have a significant cellulitis and was admitted/transferred to our hospital for further evaluation. Hospital Course: Patient has been doing well since the foreign body was removed. He wants to go home. I did speak to him regarding the fact that the left foot was still quite swollen. He was still edematous and was having some pain. However, he states that he was feeling better and wanted to go home. He was told by the other doctors that he was doing well enough that he could go home. Since he is adamant about going home, we will go ahead and discharge him. He will need close outpatient follow-up. I have advised him to contact me if the swelling gets worse or to go straight to the emergency room. Patient will continue on antibiotics for 7-10 more days. Return to the emergency room if symptoms worsen. Follow with General surgery in 1 week. Follow up with PCP in 1-2 weeks. Patient is also supposed to follow with Nephrology closely. His renal function has been elevated and this needs to be monitored closely. He may need dialysis in the near future if this does not improve. Vital Signs/Physical Exam: Temp Pulse Resp BP Pulse Ox 98.6 F 77 15 178/81 H 96 11/05/19 16:00 11/05/19 16:00 11/05/19 16:00 11/05/19 16:00 11/05/19 16:00 General: Alert, In no apparent distress, Oriented x3 Laboratory Data at Discharge: WBC 7.7 K/uL (4.3-10.9) 11/04/19 05:32 Hgb 9.3 g/dL (13.6-17.9) L 11/04/19 05:32 Hct 28.0 % (39.6-49.0) L 11/04/19 05:32 Plt Count 233 K/uL (152-406) 11/04/19 05:32 PT 11.5 SECONDS (9.5-12.5) 11/04/19 05:23 INR 0.97 11/04/19 05:23 APTT 28.3 SECONDS (24.3-36.9) 11/04/19 05:23 Sodium 146 mmol/L (136-145) H 11/05/19 04:16 Potassium 4.9 mmol/L (3.5-5.1) 11/05/19 04:16 BUN 45 mg/dL (7-18) H 11/05/19 04:16 Creatinine 2.66 mg/dL (0.55-1.3) H 11/05/19 04:16 Glucose 155 mg/dL (74-106) H 11/05/19 04:16 Uric Acid 5.3 mg/dL (3.5-7.2) 11/05/19 04:16 Phosphorus 2.9 mg/dL (2.5-4.9) 11/05/19 04:16 Home Medications: Insulin Detemir [Levemir Flextouch] 50 units SQ DAILY 11/03/19 Allopurinol 100 mg PO DAILY 11/04/19 Aspirin Chewable [Aspirin Chewable*] 81 mg PO DAILY 11/04/19 Carvedilol [Coreg] 25 mg PO BID 11/04/19 Doxazosin Mesylate [Cardura] 2 mg PO DAILY 11/04/19 Furosemide [Lasix*] 40 mg PO DAILY 11/04/19 Hydralazine HCl [Apresoline] 100 mg PO TID 11/04/19 Codeine/APAP [Tylenol W/Codeine #3 tab] 1 tab PO Q6HP PRN #30 tab 11/05/19 Levofloxacin [Levaquin] 500 mg PO DAILY #7 tablet 11/05/19 Minocycline HCl 100 mg PO BID #14 capsule 11/05/19 New Medications: Levofloxacin [Levaquin] 500 mg PO DAILY #7 tablet Minocycline HCl 100 mg PO BID #14 capsule Codeine/APAP [Tylenol W/Codeine #3 tab] 1 tab PO Q6HP PRN #30 tab PRN Reason: Pain Patient Discharge Instructions: OK TO DC IV AND DC HOME. FOLLOW-UP WITH PRIMARY CARE PROVIDER IN 1-2 WEEKS. FOLLOW-UP WITH SURGERY IN 1-2 WEEKS;. FOLLOW-UP WITH NEPHROLOGY IN 1-2 WEEKS. RETURN TO THE ER IF symptoms worsen. CALL or TEXT DR. WALLACE AT [phone] IF ANY QUESTIONS REGARDING HOSPITAL STAY. PLEASE CALL THE FLOOR AT [phone] IF ANY MEDICATION OR NURSING QUESTIONS. PLEASE EXPLAIN TO THE PATIENT THE IMPORTANCE OF RETURNING OR NOTIFYING A PHYSICIAN IMMEDIATELY IF THE INFECTION IS WORSENING-I GAVE HIM MY CELLPHONE TO NOTIFY ME IMMEDIATELY IF WORSENING AND THAT I WAS RELUCTANT FOR HIM TO DISCHARGE BECAUSE THERE WAS STILL SWELLING, ERYTHEMA, AND BLANCHING. BUT PATIENT IS WANTING TO GO HOME BECAUSE OF HIS CONVERSATION WITH THE OTHER PHYSICIANS RECOMMENDATION Diet: Renal Activity: Fall precautions Followup: Esteban Herbert MD [ACTIVE - CAN ADMIT] - 1 Week (call for appointment) Celso Fiore MD [ACTIVE - CAN ADMIT] - 1 Week (visit next week , call for appointment) Time spent managing pt's care (in minutes): 25
[2019-11-09 05:12] LABS: HBsAG Nonreactive (Nonreactive)
[2019-11-09 21:39] LABS: Albumin, (SPE) 2.9 g/dL (3.8-4.8); Alpha-1-Globulins 0.3 g/dL (0.2-0.3); Alpha-2-Globulins 0.7 g/dL (0.5-0.9); Gamma Globulins 0.7 g/dL (0.8-1.7); INTERPRETATION REPORT
[2019-11-11 09:29] LABS: Vitamin D 1,25-Dihydroxy Total 19 pg/mL (18-72); Vitamin D,1,25-OH2, D2 <8 pg/mL
[2019-11-17 16:16] LABS: Hepatitis C Virus RNA (PCR)log <1.18 log IU/mL
== END 2019-11-05 21:19 | disposition home or self-care (01) ==
LOC: 2ND 22:18 → INTOOBSV 22:18
PROVIDERS: ADMIT Hospitalist; ATTEND Hospitalist
PROC: 0JCR0ZZ Extirpation of Matter from Left Foot Subcutaneous Tissue and Fascia, Open Approach (ICD-10-PCS; principal; 2019-11-05)
DX: S91.342A Puncture wound with foreign body, left foot, initial encounter (principal); L03.116 Cellulitis of left lower limb; E78.5 Hyperlipidemia, unspecified; E66.3 Overweight; Z68.22 Body mass index [BMI] 22.0-22.9, adult; M79.5 Residual foreign body in soft tissue; S91.341A Puncture wound with foreign body, right foot, initial encounter; W26.8XXA Contact with other sharp object(s), not elsewhere classified, initial encounter; E11.22 Type 2 diabetes mellitus with diabetic chronic kidney disease; I12.9 Hypertensive chronic kidney disease with stage 1 through stage 4 chronic kidney disease, or unspecified chronic kidney disease; N18.4 Chronic kidney disease, stage 4 (severe); D63.1 Anemia in chronic kidney disease
CPT/HCPCS: 85025; 80048; 36415 ×2; 82550; 86430; 85610; 85044; 82947 ×8; 84550; 88300; 85730; 83520; 82652; 80069; 84443; 80202; 82570; 82728; 82746; 82607; 83540; 83970; 86704; 86317; 86038; 87340; 86706; 84156; 84466; 86021 ×2; 87522; 84165; 73630; 73620; 20103; J2704; J2370; J2543; J3010; J0692; G0378 ×4; J7030 ×4; J7040; J2405 ×2; 81003; 81015; J1815

== ENCOUNTER 2022-08-26 16:33 | Emergency (ER) | payer OTHER ==
--- OUTSIDE RECORDS SUMMARY | 2022-08-26 16:48 | XMS REPORT | Continuity of Care Document ---
:1950 Author Organization [facility] t Address [address] [place] [address] Care Team Providers Name Role Phone Radha Flaherty Attending Clinician Unavailable Macy Castellano Attending Clinician Unavailable Be_S_AH Attending Clinician Unavailable Rafyayo_A_AH Attending Clinician Unavailable Fernando Zaman Attending Clinician Jones Saul Attending Clinician Michael Olguin Attending Clinician DyllanSKARISSA Admitting Clinician Unavailable Rafyayo_A_AH Admitting Clinician Unavailable Fernando Zaman Admitting Clinician Jones Saul Admitting Clinician Michael Olguin Admitting Clinician Payers Payer Name Policy Type Policy Number Effective Date Expiration Date [place] [address] [id number] 2020 [facility] 00:00:00 - [facility] [id number] 2019 - [employer] 00:00:00 (MEDICARE REPLACEMENT/ADV ANTAGE - HMO) Problems Condition Condition Condition Status Onset Resolution Last Treating Co mments Source Name Details Category Date Date Treatment Clinician Date Congestive Congestive Problem Active [facility] Heart 1-26 Family failure Failure 00:00: Practic 00 e Chronic Chronic Problem Active [facility] 4-16 Family disease Disease 00:00: Practic stage 3 Stage 3 00 e Chronic Chronic Problem Active [facility] kidney Kidney 4-16 Family disease Disease 00:00: Practic due to Due to 00 e type 2 Type 2 diabetes Diabetes mellitus Mellitus [facility] Diagnosis Active 2017-02-19 Mem oria Active 02-19 12:31:00 l 02/19/2017 00:00: Ancelmo lama [address] CHOLO CHOLO Diagnosis Active 2017-04-30 Memoria BILLING BILLING 02-19 08:35:00 l Active 00:00: Elvin 02/19/2017 00 [facility] MULTIPLE MULTIPLE Diagnosis Active 2017-03-04 Memoria CLOSED CLOSED 02-19 08:11:00 l LEFT SIDE LEFT SIDE 00:00: Kassandra navarro RIBS FX RIBS FX 00 Active 02/19/2017 [facility] LEFT CHEST LEFT Diagnosis Active 2014-11-15 Memoria SOFT CHEST SOFT 10-28 21:55:00 l TISSUE TISSUE 00:00: Elvin ABSCESS ABSCESS 00 Active 10/28/2014 [facility] FEVER FEVER Diagnosis Active 2014-10-28 Mem oria Active 10-28 16:07:00 l 10/28/2014 00:00: Ancelmo lama [address] EMPYEMA EMPYEMA Diagnosis Active 2014-10-26 Memoria Active 10-12 21:54:00 l 10/12/2014 00:00: Ancelmo lama [address] MULT RIB MULT RIB Diagnosis Active 2014-10-03 Memoria FX FX Active 09-19 15:46:00 l 09/19/2014 00:00: Ancelmo lama [address] FRACTURE FRACTURE Diagnosis Active 2014-10-03 Memoria RIB RIB 15:46:00 l NOS-CLOSED NOS-CLOSED He rmann Active [facility] EMPYEMA EMPYEMA Diagnosis Active 2014-10-26 Memoria W/O W/O 21:54:00 l FISTULA FISTULA Elvin Active [facility] CELLULITIS CELLULITI Diagnosis Active 2014-11-15 Memoria NOS S NOS 21:55:[address] [facility] MULTIPLE MULTIPLE Diagnosis Active 2017-03-04 Memoria FRACTURES FRACTURES 08:11:00 l OF RIBS, OF RIBS, Ancelmo n LEFT SIDE, LEFT SIDE, I I Active [facility] Final: Final: Problem 2014-11-12 Jed ernst 11/12/2014 01:02:38 l [facility] Multiple Multiple Problem 2017-02-24 Memoria fractures fractures 02:44:34 l of ribs, of ribsAncelmo n left side, left side, initial initial encounter encounter for closed for closed fracture fracture 02/24/2017 [facility] Diabetes Diabetes Problem Resolve 2017-02-24 Memoria mellitus mellitus d 02:44:34 l (disorder) (disorder) He rmann Resolved Problem 02/24/2017 [facility] [id number] Hypertensi Problem Active Com mon on, Spirit unspecifie - [facility] d type [facility] [id number] Chronic Problem Active Commo n kidney Spirit disease, - [facility] unspecifie [facility] [id number] Type 2 [place] [id number] diabetes Spirit mellitus - [facility] with [facility] [id number] Essential Problem Active Comm on hypertensi Spirit on [facility] [id number] Hyperchole Problem Active Com mon sterolemia [facility] [id number] Type 2 Problem Active Common diabetes Spirit mellitus - [facility] with [facility] kidney Center disease [id number] Peripheral Problem Active Co mmon edema [facility] [id number] 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 y [facility] Allergies, Adverse Reactions, Alerts This patient has no known allergies or adverse reactions. Social History Social Habit Start Date Stop Date Quantity Comments Source History of Tobacco [facility] - Use [facility] Sex Assigned At [facility]orian - [facility] Social History 2017-02-19 2017-02-19 Luis Fernando Virginie marjorie 19:00:29 19:00:29 Smoking Status Start Date Stop Date Source Never Smoker [facility] Medications Ordered Filled Start Stop Current Ordering Indication Dosage Frequency Signature Comments Components Source Medication Medication Date Date Medication? Clinician (SIG) Name Name Vannesa Granado No QD Lantus SoloStar SoloStar 8-20 SoloStar 100 UNIT/ML 100 UNIT/ML 00:00: 100 00 UNIT/ML Lantus Lantus 2020-0 No QD Lantus SoloStar SoloStar 8-20 SoloStar 100 UNIT/ML 100 UNIT/ML 00:00: 100 00 UNIT/ML Lantus Lantus 2020-0 No QD Lantus SoloStar SoloStar 8-20 SoloStar 100 UNIT/ML 100 UNIT/ML 00:00: 100 00 UNIT/ML Lipitor Lipitor 2019-0 Yes Macy 1 tablet Co mmon 1-13 [facility] 00:00: - [facility] 00 [facility] NovoLog NovoLog 2018-0 Yes Macy as Common Flexpen Flexpen 4-16 Millender directed Spirit 00:00: - [facility] BD Pen BD Pen 2017-0 Yes Macy as Common Needle Mini Needle Mini 4-16 [facility] directed [facility] U/F U/F 00:00: - [facility] 00 [facility] BD Pen BD Pen 2018-0 No BD Pen Needle Mini Needle Mini 4-16 Needle U/F 31G X 5 U/F 31G X 5 00:00: Mini U/F MM MM 00 31G X 5 MM NovoLOG NovoLOG 2018-0 No NovoLOG FlexPen 100 FlexPen 100 4-16 FlexPen UNIT/ML UNIT/ML 00:00: 100 00 UNIT/ML BD Pen BD Pen 2018-0 No BD Pen Needle Mini Needle Mini 4-16 Needle U/F 31G X 5 U/F 31G X 5 00:00: Mini U/F MM MM 00 31G X 5 MM NovoLOG NovoLOG 2018-0 No NovoLOG FlexPen 100 FlexPen 100 4-16 FlexPen UNIT/ML UNIT/ML 00:00: 100 00 UNIT/ML BD Pen BD Pen 2018-0 No BD Pen Needle Mini Needle Mini 4-16 Needle U/F 31G X 5 U/F 31G X 5 00:00: Mini U/F MM MM 00 31G X 5 MM NovoLOG NovoLOG 2018-0 No NovoLOG FlexPen 100 FlexPen 100 4-16 FlexPen UNIT/ML UNIT/ML 00:00: 100 00 UNIT/ML Levemir Levemir 2018-0 Yes Macy 70 units Co mmon FlexTouch FlexTouch 4-04 [facility] 00:00: - [facility] tramadol 2016- Yes 50 mg = 1 Jed ernst hydrochlori 08 tab, PO, l de 50 MG 22:40: Q6H, PRN Shreya nn Oral Tablet 00 Pain, X 7 day, # 28 tab, 0 Refill(s) tramadol Yes 50 mg = 1 Jed ernst hydrochlori -08 tab, PO, l de 50 MG 22:40: Q6H, PRN Shreya nn Oral Tablet 00 Pain, X 7 day, # 28 tab, 0 Refill(s) acetaminoph Yes 1,000 mg = Memoria en 500 mg 08 2 tab, PO, l oral tablet 22:39: Q6H, X 7 He rmann 00 day, # 56 tab, 0 Refill(s) acetaminoph Yes 1,000 mg = Memoria en 500 mg 02-21 2 tab, PO, l oral tablet 22:39: Q6H, X 7 He rmann 00 day, # 56 tab, 0 Refill(s) atorvastati No Notes: Jed ernst n 08 (Same As: l 02:00: Lipitor) atorvastati No Notes: Jed ernst n 08 (Same As: l 02:00: Lipitor) tramadol 50 No 50 mg, 1 Me moria mg oral 02-20 tab, l tablet 23:00: Route: PO, Shreya nn 00 Drug form: TAB, Q6H, Dosing Weight 102.273, kg, Start date: 02/20/17 18:00:00 CDT, Duration: 30 day, Stop date: 03/22/17 12:00:00 CDT heparin 2016-0 No Notes: Memoria 02-20 porcine l 23:00: heparin tramadol 50 No 50 mg, 1 Me moria mg oral 02-20 tab, l tablet 23:00: Route: PO, Shreya nn 00 Drug form: TAB, Q6H, Dosing Weight 102.273, kg, Start date: 02/20/17 18:00:00 CDT, Duration: 30 day, Stop date: 03/22/17 12:00:00 CDT heparin 2016-0 No Notes: Memoria 02-20 porcine l 23:00: heparin Insulin 2016-0 No 60 units) Jed ernst regular 02-20 WASTE: F/P l 19:20: - Black; E [facility] Trash Bin Stable for 28 days at room temperatur e Expires in days from ____Date Dextrose 2016-0 No 12.5 gm, Memor ia 50% Syringe 02-20 25 mL, l 19:20: Route: Elvin IVP, Drug Form: INJ, Dosing Weight 102.273, kg, PRN, PRN Blood Glucose Results, Start date: 02/20/17 14:20:00 CDT, Duration: 30 day, Stop date: 03/22/17 14:19:00 CDT Glucagon 2016-0 No 1 mg, Memoria 02-20 Route: IM, l 19:20: Drug form: [place] 00 PDR/INJ, PRN, Dosing Weight 102.273, kg, PRN Blood Glucose Results, Start date: 02/20/17 14:20:00 CDT, Duration: 30 day, Stop date: 03/22/17 14:19:00 CDT Insulin 2016-0 No 60 units) Jed ernst regular 02-20 WASTE: F/P l 19:20: - Black; E [facility] Trash [facility] Expires in days from ____Date Dextrose 0 No 12.5 gm, Memor ia 50% Syringe 02-20 25 mL, l 19:20: Route: [place] IVP, Drug Form: INJ, Dosing Weight 102.273, kg, PRN, PRN Blood Glucose Results, Start date: 02/20/17 14:20:00 CDT, Duration: 30 day, Stop date: 03/22/17 14:19:00 CDT Glucagon 2016-0 No 1 mg, Memoria 02-20 Route: IM, l 19:20: Drug form: Elvin 00 PDR/INJ, PRN, Dosing Weight 102.273, kg, PRN Blood Glucose Results, Start date: 02/20/17 14:20:00 CDT, Duration: 30 day, Stop date: 03/22/17 14:19:00 CDT Amlodipine No Notes: Memor ia - (Same as: l 14:00: Norvasc) Docusate No Notes: Memoria Sodium 100 - (Same as: l MG Oral 14:00: Colace) [place] Capsule 00 (Do Not Crush) Aspirin No Notes: Memoria 02-20 Take with l 14:00: food. sennosides, No Notes: Jed ernst [facility] 02-20 (Same as: l 14:00: Senokot) Amlodipine No Notes: Memor ia 02-20 (Same as: l 14:00: Norvasc) Docusate No Notes: Memoria Sodium 100 02-20 (Same as: l MG Oral 14:00: Colace) [place] Capsule 00 (Do Not Crush) Aspirin No Notes: Memoria 9-07 Take with l 14:00: food. [place] 00 sennosides, No Notes: Jed ernst [facility] 9-07 (Same as: l 14:00: Senokot) pantoprazol No 40 mg, PO, Memoria e 9-07 Daily, # l 08:29: 30 tab, 0 [place] 00 Refill(s) pantoprazol No 40 mg, PO, Memoria e 9-07 Daily, # l 08:29: 30 tab, 0 [place] 00 Refill(s) metoprolol No Notes: Memor ia tartrate - (Same as: l 02:00: Lopressor) metoprolol No Notes: Memor ia tartrate -07 (Same as: l 02:00: Lopressor) Acetaminoph No Notes: Max Memoria en 9-06 acetaminop l 23:00: hen 4000 [place] 00 mg/day (4 gm/day). (Same as: Tylenol Extra Strength) Acetaminoph No Notes: Max Memoria en 9-06 acetaminop l 23:00: hen 4000 [place] 00 mg/day (4 gm/day). (Same as: Tylenol Extra Strength) heparin No Notes: Memoria 02-19 porcine l 21:00: heparin [place] tramadol No Notes: Not Mem oria hydrochlori 02-19 to exceed l de 50 MG 21:00: 400mg/day. Her sen Oral Tablet 00 (Same As: Ultram) heparin No Notes: Memoria 02-19 porcine l 21:00: heparin [place] tramadol No Notes: Not Mem oria hydrochlori 02-19 to exceed l de 50 MG 21:00: 400mg/day. Her sen Oral Tablet 00 (Same As: Ultram) Insulin No 60 units) Jed ernst Lispro 02-19 WASTE: F/P l 18:01: - Black; E Elvin 00 - Municipal Trash Bin Stable for 28 days at room temperatur e. Expires in days from ____Date Dextrose No 25 gm, 50 Jed ernst 50% Syringe 9-06 mL, Route: l 18:01: IVP, Drug [place] 00 Form: INJ, Dosing Weight 102.273, kg, PRN, PRN Blood Glucose Results, Start date: 02/19/17 13:01:00 CDT, Duration: 30 day, Stop date: 03/21/17 13:00:00 CDT Glucagon No 1 mg, Memoria 02-19 Route: IM, l 18:01: Drug form: Elvin 00 PDR/INJ, PRN, Dosing Weight 102.273, kg, PRN Blood Glucose Results, Start date: 02/19/17 13:01:00 CDT, Duration: 30 day, Stop date: 03/21/17 13:00:00 CDT Insulin No 60 units) Jed ernst Lispro 02-19 WASTE: F/P l 18:01: - Black; E Elvin - Municipal Trash Bin Stable for 28 days at room temperatur e. Expires in days from ____Date Dextrose 0 No 25 gm, 50 Jed ernst 50% Syringe 9-06 mL, Route: l 18:01: IVP, Drug Elvin 00 Form: INJ, Dosing Weight 102.273, kg, PRN, PRN Blood Glucose Results, Start date: 02/19/17 13:01:00 CDT, Duration: 30 day, Stop date: 03/21/17 13:00:00 CDT Glucagon 2016-0 No 1 mg, Memoria 02-19 Route: IM, l 18:01: Drug form: [place] 00 PDR/INJ, PRN, Dosing Weight 102.273, kg, PRN Blood Glucose Results, Start date: 02/19/17 13:01:00 CDT, Duration: 30 day, Stop date: 03/21/17 13:00:00 CDT Insulin 2016- Yes 50 unit, Memori a Glargine 02-19 SUB-Q, l 100 UNT/ML 18:00: QAM, 0 Shreya nn Injectable 00 Refill(s) Solution [Lantus] amLODIPine Yes 10 mg = 1 Me moria 10 mg oral 02-19 tab, PO, l tablet 18:00: Daily, # Elvin 00 90 tab, 1 Refill(s) metoprolol Yes 50 mg = 1 Me moria tartrate 50 02-19 tab, PO, l mg oral 18:00: BID, # 180 Herm melanie tablet 00 tab, 0 Refill(s) Insulin 0 Yes 50 unit, Memori a Glargine 02-19 SUB-Q, l 100 UNT/ML 18:00: QAM, 0 Shreya nn Injectable 00 Refill(s) Solution [Lantus] amLODIPine Yes 10 mg = 1 Me moria 10 mg oral 02-19 tab, PO, l tablet 18:00: Daily, # [place] 00 90 tab, 1 Refill(s) metoprolol 0 Yes 50 mg = 1 Me moria tartrate 50 02-19 tab, PO, l mg oral 18:00: BID, # 180 Herm melanie tablet 00 tab, 0 Refill(s) Hydralazine 0 No Notes: Jed ernst 02-19 (Same as: l 17:20: Apresoline ) Push over 5 minutes Lovenox 2017-0 No 30 mg, Memoria 02-19 Route: l 17:20: SUB-Q, Drug form: INJ, Q12H, Dosing Weight 102.273, kg, Priority: STAT, Start date: 02/19/17 12:20:00 CDT, Duration: 30 day, Stop date: 03/21/17 9:00:00 CDT Hydralazine 2016- No Notes: Jed ernst 02-19 (Same as: l 17:20: Apresoline [place] ) Push over 5 minutes Lovenox No 30 mg, Memoria 02-19 Route: l 17:20: SUB-Q, Elvin 00 Drug form: INJ, Q12H, Dosing Weight 102.273, kg, Priority: STAT, Start date: 02/19/17 12:20:00 CDT, Duration: 30 day, Stop date: 03/21/17 9:00:00 CDT Oxycodone No Notes: Memori a Hydrochlori 02-19 (Same as: l de 5 MG 17:19: Roxicodone Herm melanie Oral Tablet 00 ) Oxycodone No Notes: Memori a Hydrochlori 02-19 (Same as: l de 5 MG 17:19: Roxicodone Herm melanie Oral Tablet ) Dilaudid No Notes: Memoria 02-19 Same as: l 16:28: Dilaudid [place] 00 Dilaudid No Notes: Memoria 02-19 Same as: l 16:28: Dilaudid [place] 00 NS (Bolus) No 1,000 mL, Me moria IV 02-19 1,000 l 16:23: ml/hr, Elvin 00 Infuse Over: 1 hr, Route: IV, 1,000, Drug form: INJ, ONCE, Priority: STAT, Dosing Weight 102.273 kg, Start date: 02/19/17 11:23:00 CDT, Duration: 1 doses or times, Stop date: 02/19/17 11:23:00 CDT NS (Bolus) No 1,000 mL, Me moria IV 02-19 1,000 l 16:23: ml/hr, Elvin 00 Infuse Over: 1 hr, Route: IV, 1,000, Drug form: INJ, ONCE, Priority: STAT, Dosing Weight 102.273 kg, Start date: 02/19/17 11:23:00 CDT, Duration: 1 doses or times, Stop date: 02/19/17 11:23:00 CDT Morphine No Notes: Memoria 02-19 (Same l 15:22: as:MORPhin Elvin 00 e Sulfate) Zofran No Notes: Memoria 02-19 (Same as: l 15:22: Zofran) [place] 00 MEDICATION WASTE Product Size: 4 mg Product Wasted: ___ mg Morphine No Notes: Memoria 02-19 (Same l 15:22: as:MORPhin Elvin 00 e Sulfate) Zofran No Notes: Memoria 02-19 (Same as: l 15:22: Zofran) Elvin 00 MEDICATION WASTE Product Size: 4 mg Product Wasted: ___ mg iodixanol No Notes: Memori a 02-19 (Same as: l 15:20: Visipaque) . WASTE: F/P - Black; E - Municipal Trash Bin iodixanol No Notes: Memori a 02-19 (Same as: l 15:20: Visipaque) . WASTE: F/P - Black; E - Municipal Trash Bin Saline No Notes: Memoria Flush 0.9% 02-19 Same as: l 15:16: BD Posiflush Sterile Saline No Notes: Memoria Flush 0.9% 02-19 Same as: l 15:16: BD Posiflush Sterile tramadol Yes Special Memori a hydrochlori 5-27 Instructio l de 50 MG 21:19: ns: 1-2 Ancelmo n Oral Tablet 14 tab PO Q6H tramadol Yes Special Memori a hydrochlori 5-27 Instructio l de 50 MG 21:19: ns: 1-2 Ancelmo n Oral Tablet 14 tab PO Q6H senna 8.6 Yes 8.6 mg = 1 Me moria mg oral 5-27 tab, PO, l tablet 21:19: Daily, 0 Refill(s) POLYETHYLEN Yes PO, Daily, Memoria E GLYCOL 5-27 0 l 3350 21:19: Refill(s) Acetaminoph Yes Special Mem oria en 325 MG / 5-27 Instructio l Hydrocodone 21:19: ns: not to Elvin Bitartrate 00 exceed 8 7.5 MG Oral tablets/da Tablet y [Rosenhayn 7.5/325] senna 8.6 Yes 8.6 mg = 1 Me moria mg oral 5-27 tab, PO, l tablet 21:19: Daily, 0 [place] 00 Refill(s) POLYETHYLEN Yes PO, Daily, Memoria E GLYCOL 5-27 0 l 3350 21:19: Refill(s) Elvin Acetaminoph Yes Special Mem oria en 325 MG / 5-27 Instructio l Hydrocodone 21:19: ns: not to Elvin Bitartrate 00 exceed 8 7.5 MG Oral tablets/da Tablet y [Rosenhayn 7.5/325] gabapentin Yes 600 mg = 2 M emoria 300 MG Oral 5-27 cap, PO, l Capsule 21:18: Q8H, # 120 Herm melanie 56 cap, 0 Refill(s) gabapentin Yes 600 mg = 2 M emoria 300 MG Oral 5-27 cap, PO, l Capsule 21:18: Q8H, # 120 Herm melanie 56 cap, 0 Refill(s) PlasmaLyte No 1,000 mL, Me moria A PH-7.4 5-23 Rate: 100 l 1,000 mL 05:01: ml/hr, [place] 00 Infuse over: 10 hr, Route: IV, Dosing Weight 84.091 kg, Total Volume: 1,000, Start date: 11/05/14 0:01:00, Duration: 30 day, Stop date: 12/05/14 0:00:00 PlasmaLyte No 1,000 mL, Me moria A PH-7.4 5-23 Rate: 100 l 1,000 mL 05:01: ml/hr, [place] 00 Infuse over: 10 hr, Route: IV, Dosing Weight 84.091 kg, Total Volume: 1,000, Start date: 11/05/14 0:01:00, Duration: 30 day, Stop date: 12/05/14 0:00:00 Tums No Notes: Memoria 5-21 (Same As: l 18:00: Tums) Elvin 00 Calcium Carbonate 500 mg = 200 mg elemental calcium Dose = mg calcium carbonate ( mg elemental calcium) Tums No Notes: Memoria -21 (Same As: l 18:00: Tums) [place] 00 Calcium Carbonate 500 mg = 200 mg elemental calcium Dose = mg calcium carbonate ( mg elemental calcium) Neutra-Phos No Notes: Jed ernst 5-21 (Same as: l 14:00: Neutra-Johnnie Elvin 00 s) Each 1.25 gm pkt has 250mg phosphorou s. Mag-Ox 400 No Notes: Memor ia 11-03 (Same as: l 14:00: Mag-Ox [place] 00 400) Magnesium oxide 376ki=771r g elemental magnesium Dose=____m g magnesium oxide (___mg elemental magnesium) Neutra-Phos No Notes: Jed ernst 5-21 (Same as: l 14:00: Neutra-Johnnie [place] 00 s) Each 1.25 gm pkt has 250mg phosphorou s. Mag-Ox 400 No Notes: Memor ia - (Same as: l 14:00: Mag-Ox Elvin 00 400) Magnesium oxide 261xd=041o g elemental magnesium Dose=____m g magnesium oxide (___mg elemental magnesium) Neutra-Phos No 1 pkt, Jed ernst -21 Route: PO, l 13:00: Dosing Elvin Weight 84.091, kg, BID-Meals, Start date: 11/03/14 8:00:00, Duration: 30 day, Stop date: 12/02/14 17:00:00 Neutra-Phos No 1 pkt, Jed ernst 5-21 Route: PO, l 13:00: Dosing Elvin Weight 84.091, kg, BID-Meals, Start date: 11/03/14 8:00:00, Duration: 30 day, Stop date: 12/02/14 17:00:00 Morphine No 2 mg, Memoria 11-03 Route: l 01:50: IVP, [place] 00 Q5Min, Dosing Weight 84.091, kg, PRN Pain Score 4-6, Start date: 11/02/14 20:50:00, Duration: 5 doses or times, Stop date: Limited # of times Labetalol 2014-0 No 10 mg, Memori a 5-21 Route: l 01:50: IVP, [place] 00 Q5Min, Dosing Weight 84.091, kg, PRN Elevated BP, Start date: 11/02/14 20:50:00, Duration: 5 doses or times, Stop date: Limited # of times Ondansetron 2014-0 No 4 mg, Memor ia 5-21 Route: l 01:50: IVP, ONCE, Elvin 00 Dosing Weight 84.091, kg, PRN Nausea & Vomiting, Start date: 11/02/14 20:50:00 Naloxone 2014-0 No 0.04 mg, Memor ia 5-21 Route: l 01:50: IVP, [place] 00 Q2MIN, Dosing Weight 84.091, kg, PRN Narcotic Reversal, Start date: 11/02/14 20:50:00, Duration: 8 doses or times, Stop date: Limited # of times Flumazenil 2014-0 No 0.2 mg, Jed ernst 5-21 Route: l 01:50: IVP, PRN, [place] 00 Dosing Weight 84.091, kg, PRN Benzodiaze pine Reversal, Initial dose, Start date: 11/02/14 20:50:00, Duration: 30 day, Stop date: 12/02/14 20:49:00 Morphine 2014-0 No 2 mg, Memoria 5-21 Route: l 01:50: IVP, [place] 00 Q5Min, Dosing Weight 84.091, kg, PRN Pain Score 4-6, Start date: 11/02/14 20:50:00, Duration: 5 doses or times, Stop date: Limited # of times Labetalol 2014-0 No 10 mg, Memori a 5-21 Route: l 01:50: IVP, [place]vin 00 Q5Min, Dosing Weight 84.091, kg, PRN Elevated BP, Start date: 11/02/14 20:50:00, Duration: 5 doses or times, Stop date: Limited # of times Ondansetron 2014-0 No 4 mg, Memor ia 5-21 Route: l 01:50: IVP, ONCE, Dosing Weight 84.091, kg, PRN Nausea & Vomiting, Start date: 11/02/14 20:50:00 Naloxone 2014-0 No 0.04 mg, Memor ia 5-21 Route: l 01:50: IVP, Q2MIN, Dosing Weight 84.091, kg, PRN Narcotic Reversal, Start date: 11/02/14 20:50:00, Duration: 8 doses or times, Stop date: Limited # of times Flumazenil 2014-0 No 0.2 mg, Jed ernst 5-21 Route: l 01:50: IVP, PRN, Dosing Weight 84.091, kg, PRN Benzodiaze pine Reversal, Initial dose, Start date: 11/02/14 20:50:00, Duration: 30 day, Stop date: 12/02/14 20:49:00 Cefazolin 2014-0 No 2 gm, Memoria 5-21 Route: IV, l 01:03: ONCE, Dosing Weight 84.091, kg, Start date: 11/02/14 20:03:00, Duration: 1 doses or times, Stop date: 11/02/14 20:03:00 Cefazolin 2014-0 No 2 gm, Memoria 5-21 Route: IV, l 01:03: ONCE, Dosing Weight 84.091, kg, Start date: 11/02/14 20:03:00, Duration: 1 doses or times, Stop date: 11/02/14 20:03:00 PlasmaLyte 2015-0 No 1,000 mL, Me moria A PH-7.4 5-20 Rate: 100 l 1,000 mL 05:01: ml/hr, Infuse over: 10 hr, Route: IV, Dosing Weight 84.091 kg, Total Volume: 1,000, Start date: 11/02/14 0:01:00, Duration: 30 day, Stop date: 12/02/14 0:00:00 PlasmaLyte 2015-0 No 1,000 mL, Me moria A PH-7.4 5-20 Rate: 100 l 1,000 mL 05:01: ml/hr, [place] 00 Infuse over: 10 hr, Route: IV, Dosing Weight 84.091 kg, Total Volume: 1,000, Start date: 11/02/14 0:01:00, Duration: 30 day, Stop date: 12/02/14 0:00:00 Ancef + 2015-0 No Notes: Memoria Sodium 5-19 (Same As: l Chloride 20:00: Ancef, Elvin 0.9% IV 100 00 Kefzol) mL Cefazolin FOR IV SET ONLY MEDICATION WASTE Product Size: 1000 mg Product Wasted: ___ mg Ancef + 2015-0 No Notes: Memoria Sodium 5-19 (Same As: l Chloride 20:00: Ancef, [place] 0.9% IV 100 00 Kefzol) mL Cefazolin FOR IV SET ONLY MEDICATION WASTE Product Size: 1000 mg Product Wasted: ___ mg sodium 2015-0 No 15 mmol, 5 Memor ia phosphate + 5-19 mL, Route: l Sodium 17:02: IVPB, [place] Chloride 00 ONCE, 0.9% IV 250 Dosing mL Weight 84.091, kg, Start date: 11/01/14 12:02:00, Stop date: 11/01/14 12:02:00 sodium 2015-0 No 15 mmol, 5 Memor ia phosphate + 5-19 mL, Route: l Sodium 17:02: IVPB, [place] Chloride 00 ONCE, 0.9% IV 250 Dosing mL Weight 84.091, kg, Start date: 11/01/14 12:02:00, Stop date: 11/01/14 12:02:00 Magnesium 2015-0 No 2 gm, 50 [place] ernst Sulfate 5-19 mL, Route: l 15:00: IVPB, Drug [place] 00 form: INJ, Q2H, Dosing Weight 84.091, kg, Total dose = 4 gm, Start date: 11/01/14 10:00:00, Stop date: 11/01/14 13:59:00 Magnesium 2015-0 No 2 gm, 50 Jed ernst Sulfate 5-19 mL, Route: l 15:00: IVPB, Drug [place] 00 form: INJ, Q2H, Dosing Weight 84.091, kg, Total dose = 4 gm, Start date: 11/01/14 10:00:00, Stop date: 11/01/14 13:59:00 sennosides, No 1 tab, [facility] ernst [facility] 5-19 Route: PO, l 14:00: Drug Form: [place] 00 TAB, Dosing Weight 84.091, kg, Daily, Start date: 11/01/14 9:00:00, Duration: 30 day, Stop date: 11/30/14 9:00:00 sennosides, No 1 tab, [facility] 5-19 Route: PO, l 14:00: Drug Form: Elvin 00 TAB, Dosing Weight 84.091, kg, Daily, Start date: 11/01/14 9:00:00, Duration: 30 day, Stop date: 11/30/14 9:00:00 Bisacodyl No Notes: [facility] a 5-19 (Same As: l 13:22: Dulcolax, [place] 00 Bisco-Lax) Bisacodyl No Notes: [facility] a 5-19 (Same As: l 13:22: Dulcolax, [place] 00 Bisco-Lax) Acetaminoph No Notes: [facility] en 325 MG / 5-19 Same as l Hydrocodone 04:00: Rosenhayn Shreya nn Bitartrate 00 325-7.5mg 7.5 MG Oral Do not Tablet exceed [Rosenhayn 4gm/day of 7.5/325] acetaminop hen. Acetaminoph No Notes: [facility] en 325 MG / 5-19 Same as l Hydrocodone 04:00: Rosenhayn Shreya nn Bitartrate 00 325-7.5mg 7.5 MG Oral Do not Tablet exceed [Rosenhayn 4gm/day of 7.5/325] acetaminop hen. Acetaminoph No Notes: [facility] en 325 MG / 5-18 Same as l Hydrocodone 21:49: Rosenhayn Shreya nn Bitartrate 00 325-7.5mg 7.5 MG Oral Do not Tablet exceed [Rosenhayn 4gm/day of 7.5/325] acetaminop hen. Acetaminoph No Notes: Jed ernst en 325 MG / 5-18 Same as l Hydrocodone 21:49: Rosenhayn Shreya nn Bitartrate 00 325-7.5mg 7.5 MG Oral Do not Tablet exceed [Rosenhayn 4gm/day of 7.5/325] acetaminop hen. magnesium 2015-0 No 2 gm, 50 [facility] ernst sulfate 5-18 mL, Route: l 21:46: IVPB, Drug [place] 00 form: INJ, ONCE, Dosing Weight 84.091, kg, Total dose = 4 gm, Start date: 10/31/14 16:46:00, Stop date: 10/31/14 16:46:00 magnesium 2015-0 No 2 gm, 50 [facility] ernst sulfate 5-18 mL, Route: l 21:46: IVPB, Drug [place]vin form: INJ, ONCE, Dosing Weight 84.091, kg, Total dose = 4 gm, Start date: 10/31/14 16:46:00, Stop date: 10/31/14 16:46:00 Magnesium 2014-0 No 2 gm, 50 [facility] ern[facility] Sulfate 5-18 mL, Route: l 15:00: IVPB, Drug [place] 00 form: INJ, Q2H, Dosing Weight 84.091, kg, Total dose = 4 gm, Start date: 10/31/14 10:00:00, Stop date: 10/31/14 13:59:00 Magnesium 2015-0 No 2 gm, 50 [facility] ern[facility] Sulfate 5-18 mL, Route: l 15:00: IVPB, Drug [place]vin form: INJ, Q2H, Dosing Weight 84.091, kg, Total dose = 4 gm, Start date: 10/31/14 10:00:00, Stop date: 10/31/14 13:59:00 Ondansetron No Notes: Jed ernst 5-18 (Same as: l 14:02: Zofran) MEDICATION WASTE Product Size: 4 mg Product Wasted: ___ mg Naloxone No Notes: Memoria 5-18 Same as l 14:02: Narcan Hydromorpho No Notes: Jed ernst ne 5-18 Same as: l 14:02: Dilaudid Flumazenil No Notes: Memor ia 5-18 (Same as: l 14:02: Romazicon) Meperidine No 12.5 mg, Mem oria 5-18 Route: l 14:02: IVP, [place] 00 Q30Min, Dosing Weight 84.091, kg, PRN Other -See Comment, For shivering, Start date: 10/31/14 9:02:00, Duration: 2 doses or times, Stop date: Limited # of times Labetalol No 10 mg, Memori a 5-18 Route: l 14:02: IVP, [place] 00 Q5Min, Dosing Weight 84.091, kg, PRN Elevated BP, Start date: 10/31/14 9:02:00, Duration: 5 doses or times, Stop date: Limited # of times esmolol No 10 mg, Memoria 5-18 Route: l 14:02: IVP, [place] 00 Q5Min, Dosing Weight 84.091, kg, PRN Other -See Comment, Start date: 10/31/14 9:02:00, Duration: 5 doses or times, Stop date: Limited # of times Hydralazine No Notes: Jed ernst 5-18 (Same as: l 14:02: Apresoline ) Push over 5 minutes Ondansetron No Notes: Jed ernst 5-18 (Same as: l 14:02: Zofran) MEDICATION WASTE Product Size: 4 mg Product Wasted: ___ mg Naloxone No Notes: Memoria 5-18 Same as l 14:02: Narcan Hydromorpho No Notes: Jed ernst ne 5-18 Same as: l 14:02: Dilaudid Flumazenil No Notes: Memor ia 5-18 (Same as: l 14:02: Romazicon) Meperidine No 12.5 mg, Mem oria 5-18 Route: l 14:02: IVP, [place] 00 Q30Min, Dosing Weight 84.091, kg, PRN Other -See Comment, For shivering, Start date: 10/31/14 9:02:00, Duration: 2 doses or times, Stop date: Limited # of times Labetalol 0 No 10 mg, Memori a 5-18 Route: l 14:02: IVP, [place] 00 Q5Min, Dosing Weight 84.091, kg, PRN Elevated BP, Start date: 10/31/14 9:02:00, Duration: 5 doses or times, Stop date: Limited # of times esmolol No 10 mg, Memoria 5-18 Route: l 14:02: IVP, [place] 00 Q5Min, Dosing Weight 84.091, kg, PRN Other -See Comment, Start date: 10/31/14 9:02:00, Duration: 5 doses or times, Stop date: Limited # of times Hydralazine No Notes: Jed ernst 5-18 (Same as: l 14:02: Apresoline [place] 00 ) Push over 5 minutes micafungin 2014-0 No Notes: Memor ia 5-18 Same as l 14:00: Mycamine [place] 00 Protect from light MEDICATION WASTE Product Size: 100 mg Product Wasted: ___ mg micafungin 2014-0 No Notes: Memor ia 5-18 Same as l 14:00: Mycamine [place] 00 Protect from light MEDICATION WASTE Product Size: 100 mg Product Wasted: ___ mg sodium 2014-0 No 30 mmol, Memoria phosphate + 5-18 10 mL, l Sodium 13:35: Route: [place] Chloride 00 IVPB, 0.9% IV 250 ONCE, mL Dosing Weight 84.091, kg, Start date: 10/31/14 8:35:00, Stop date: 10/31/14 8:35:00 sodium 2014-0 No 30 mmol, Memoria phosphate + 5-18 10 mL, l Sodium 13:35: Route: [place] Chloride 00 IVPB, 0.9% IV 250 ONCE, mL Dosing Weight 84.091, kg, Start date: 10/31/14 8:35:00, Stop date: 10/31/14 8:35:00 Calcium 2015-0 No 2,000 mg, Memor ia Gluconate 5-18 20 mL, l 13:34: Route: [place] 00 IVPB, ONCE, Dosing Weight 84.091, kg, Start date: 10/31/14 8:34:00, Stop date: 10/31/14 8:34:00 Calcium 2014- No 2,000 mg, Memor ia Gluconate 5-18 20 mL, l 13:34: Route: [place] 00 IVPB, ONCE, Dosing Weight 84.091, kg, Start date: 10/31/14 8:34:00, Stop date: 10/31/14 8:34:00 sennosides, No Notes: Jed ernst [facility] 5-17 (Same as: l 22:00: Senokot) sennosides, No Notes: Jed ernst [facility] 5-17 (Same as: l 22:00: Senokot) Vancomycin No 2000 mg: Me moria 5-17 infuse l 19:00: over 2.5 [place] 00 hours MEDICATION WASTE Product Size: 1000 mg Product Wasted: ___ mg Vancomycin No 2000 mg: Me moria 5-17 infuse l 19:00: over 2.5 [place] 00 hours MEDICATION WASTE Product Size: 1000 mg Product Wasted: ___ mg Bisacodyl No Notes: Memori a 5-17 (Same As: l 18:54: Dulcolax, [place]vin Bisco-Lax) Bisacodyl No Notes: Memori a 5-17 (Same As: l 18:54: Dulcolax, [place] Bisco-Lax) Magnesium 2014-0 No 2 gm, 50 Jed ern[facility] Sulfate 5-17 mL, Route: l 15:00: IVPB, Drug form: INJ, Q2H, Dosing Weight 84.091, kg, Total dose = 4 gm, Start date: 10/30/14 10:00:00, Stop date: 10/30/14 13:59:00 Magnesium 2014-0 No 2 gm, 50 [facility] Sulfate 5-17 mL, Route: l 15:00: IVPB, Drug form: INJ, Q2H, Dosing Weight 84.091, kg, Total dose = 4 gm, Start date: 10/30/14 10:00:00, Stop date: 10/30/14 13:59:00 Calcium 2015-0 No 1,000 mg, Memor ia Gluconate 5-17 10 mL, l 14:45: Route: [place] 00 IVPB, ONCE, Dosing Weight 84.091, kg, Start date: 10/30/14 9:45:00, Stop date: 10/30/14 9:45:00 Calcium 2015-0 No 1,000 mg, Memor ia Gluconate 5-17 10 mL, l 14:45: Route: [place] 00 IVPB, ONCE, Dosing Weight 84.091, kg, Start date: 10/30/14 9:45:00, Stop date: 10/30/14 9:45:00 sodium 2015-0 No 15 mmol, 5 Memor ia phosphate + 5-17 mL, Route: l Sodium 14:44: IVPB, [place] Chloride 00 ONCE, 0.9% IV 250 Dosing mL Weight 84.091, kg, Start date: 10/30/14 9:44:00, Stop date: 10/30/14 9:44:00 sodium 2015-0 No 15 mmol, 5 Memor ia phosphate + 5-17 mL, Route: l Sodium 14:44: IVPB, [place] Chloride 00 ONCE, 0.9% IV 250 Dosing mL Weight 84.091, kg, Start date: 10/30/14 9:44:00, Stop date: 10/30/14 9:44:00 PlasmaLyte 2015-0 No 1,000 mL, Me moria A PH-7.4 5-17 Rate: 100 l 1,000 mL 05:01: ml/hr, [place] 00 Infuse over: 10 hr, Route: IV, Dosing Weight 84.091 kg, Total Volume: 1,000, Start date: 10/30/14 0:01:00, Duration: 30 day, Stop date: 11/29/14 0:00:00 PlasmaLyte 2015-0 No 1,000 mL, Me moria A PH-7.4 5-17 Rate: 100 l 1,000 mL 05:01: ml/hr, [place] 00 Infuse over: 10 hr, Route: IV, Dosing Weight 84.091 kg, Total Volume: 1,000, Start date: 10/30/14 0:01:00, Duration: 30 day, Stop date: 11/29/14 0:00:00 Aspirin No Notes: [facility]oria 5-16 Take with l 14:00: food. [place] 00 Docusate No Notes: [facility] Sodium 100 5-16 (Same as: l MG Oral 14:00: Colace) [place] Capsule 00 (Do Not [Colace] Crush) Miralax No Notes: [facility]oria 5-16 Dissolve l 14:00: in 8 oz of [place] 00 water or juice. (Same as: Miralax) quinapril No 40 mg, Memori a 5-16 Route: PO, l 14:00: Drug form: [place] 00 TAB, Daily, Dosing Weight 84.091, kg, Start date: 10/29/14 9:00:00, Duration: 30 day, Stop date: 11/27/14 9:00:00 Altace No Notes: Memoria 5-16 (Same l 14:00: as:Altace) [place] Lantus No Notes: [facility]oria 5-16 Same as l 14:00: Lantus [place] 00 Solostar PEN Do not hold insulin without contacting prescriber "single patient use only" Stable for 28 days at room temperatur e. Expires in days from ____Date ferrous No Notes: [facility]oria sulfate 5-16 Give with l 14:00: food. "Do [place] 00 Not Crush" Docusate No Notes: [facility] Sodium 100 5-16 (Same as: l MG Oral 14:00: Colace) [place] Capsule 00 (Do Not [Colace] Crush) Miralax No Notes: [facility] 5-16 Dissolve l 14:00: in 8 oz of [place] 00 water or juice. (Same as: Miralax) quinapril No 40 mg, Memori a 5-16 Route: PO, l 14:00: Drug form: [place] 00 TAB, Daily, Dosing Weight 84.091, kg, Start date: 10/29/14 9:00:00, Duration: 30 day, Stop date: 11/27/14 9:00:00 Altace No Notes: [facility] 5-16 (Same l 14:00: as:Altace) Lantus No Notes: [facility] 5-16 Same as l 14:00: Lantus [place] 00 Solostar PEN Do not hold insulin without contacting prescriber "single patient use only" Stable for 28 days at room temperatur e. Expires in days from ____Date ferrous No Notes: [facility]oria sulfate 5-16 Give with l 14:00: food. "Do Not Crush" Aspirin No Notes: [facility] 5-16 Take with l 14:00: food. Dextrose No 12.5 gm, Memor ia 50% Syringe 5-16 Route: l 06:24: IVP, [place] 00 Dosing Weight 84.091, kg, ONCE, Start date: 10/29/14 1:24:00, Stop date: 10/29/14 1:24:00 Dextrose No 12.5 gm, Memor ia 50% Syringe -16 Route: l 06:24: IVP, Dosing Weight 84.091, kg, ONCE, Start date: 10/29/14 1:24:00, Stop date: 10/29/14 1:24:00 Ondansetron No Notes: [facility] 5-16 (Same as: l 06:12: Zofran) MEDICATION WASTE Product Size: 4 mg Product Wasted: ___ mg Ondansetron No Notes: [facility] 5-16 (Same as: l 06:12: Zofran) MEDICATION WASTE Product Size: 4 mg Product Wasted: ___ mg Naloxone No Notes: [facility] 5-16 Same as l 05:44: Narcan Metoprolol No Notes: Memor ia 5-16 (Same as: l 05:44: Lopressor) Push over 2 minutes Hydromorpho No Notes: [facility] ern[facility] ne -16 Same as: l 05:44: Dilaudid [place] 00 Flumazenil No Notes: Memor ia 5-16 (Same as: l 05:44: Romazicon) [place] Naloxone No Notes: [facility]oria 5-16 Same as l 05:44: Narcan [place] Metoprolol No Notes: Memor ia 5-16 (Same as: l 05:44: Lopressor) [place] 00 Push over 2 minutes Hydromorpho No Notes: Jed ernst ne 5-16 Same as: l 05:44: Dilaudid [place] 00 Flumazenil No Notes: Memor ia 5-16 (Same as: l 05:44: Romazicon) [place] 00 Acetaminoph No Notes: Jed ernst en 325 MG / 5-16 (Same as: l Hydrocodone 05:41: Rosenhayn Shreya nn Bitartrate 00 325/5) 5 MG Oral Tablet [Rosenhayn 5/325] Acetaminoph No Notes: Jed [facility] en 325 MG / 5-16 (Same as: l Hydrocodone 05:41: Rosenhayn Shreya nn Bitartrate 00 325/5) 5 MG Oral Tablet [Rosenhayn 5/325] gabapentin No Notes: Memor ia 600 MG Oral 5-16 (Same as: l Tablet 05:00: Neurontin) Shreya nn 00 Acetaminoph No Notes: Jed [facility] en 325 MG / 5-16 (Same as: l Hydrocodone 05:00: Rosenhayn Shreya nn Bitartrate 00 325/5) Do 5 MG Oral not exceed Tablet 4gm/day of [Rosenhayn acetaminop 5/325] hen. Tramadol No Notes: Not Mem oria 5-16 to exceed l 05:00: 400mg/day. [place] 00 (Same As: Ultram) gabapentin No Notes: Memor ia 600 MG Oral 5-16 (Same as: l Tablet 05:00: Neurontin) Shreya nn 00 Acetaminoph No Notes: [facility] en 325 MG / 5-16 (Same as: l Hydrocodone 05:00: Rosenhayn Shreya nn Bitartrate 00 325/5) Do 5 MG Oral not exceed Tablet 4gm/day of [Rosenhayn acetaminop 5/325] hen. Tramadol No Notes: Not Mem oria 5-16 to exceed l 05:00: 400mg/day. [place] 00 (Same As: Ultram) Flagyl No Notes: [facility]oria 5-16 (Same as: l 02:00: Flagyl) Avoid alcohol. cefepime No Notes: [facility] 5-16 (Same As: l 02:00: Maxipime) [place] 00 MEDICATION WASTE Product Size: 1000 mg Product Wasted: ___ mg Vancomycin No 2001 mg: Me moria 5-16 infuse l 02:00: over 2.5 [place] 00 hours MEDICATION WASTE Product Size: 1000 mg Product Wasted: ___ mg atorvastati No Notes: Jed ernst n 5-16 (Same As: l 02:00: Lipitor) Enoxaparin No Notes: Memor ia 5-16 (Same as: l 02:00: Lovenox) metoprolol No Notes: Memor ia tartrate 5-16 (Same as: l 02:00: Lopressor) Flagyl No Notes: [facility]oria 5-16 (Same as: l 02:00: Flagyl) Avoid alcohol. cefepime No Notes: [facility] 5-16 (Same As: l 02:00: Maxipime) MEDICATION WASTE Product Size: 1000 mg Product Wasted: ___ mg Vancomycin No 2001 mg: Me moria 5-16 infuse l 02:00: over 2.5 [place] 00 hours MEDICATION WASTE Product Size: 1000 mg Product Wasted: ___ mg atorvastati No Notes: Jed ern[facility] n 5-16 (Same As: l 02:00: Lipitor) Enoxaparin No Notes: Memor ia 5-16 (Same as: l 02:00: Lovenox) metoprolol No Notes: Memor ia tartrate 5-16 (Same as: l 02:00: Lopressor) Dilaudid No Notes: [facility] 5-16 (Same as: l 01:47: Dilaudid) [place] 00 Dilaudid No Notes: [facility] 5-16 (Same as: l 01:47: Dilaudid) [place] 00 D5W 1/2NS + No Notes: [facility] KCL 20mEq/L 5-16 PREMIX IV l 1000ml 01:37: - Do Not [place] (Premix) 00 Alter 1000 mL D5W 1/2NS + No Notes: [facility] KCL 20mEq/L 5-16 PREMIX IV l 1000ml 01:37: - Do Not [place] (Premix) 00 Alter 1000 mL PlasmaLyte No 1,000 mL, Me moria A PH-7.4 5 Rate: 125 l 1000 mL 01:35: ml/hr, [place] 00 Infuse over: 8 hr, Route: IV, Dosing Weight 84.091 kg, Total Volume: 1,000, Start date: 10/28/14 20:35:00, Duration: 30 day, Stop date: 11/27/14 20:34:00 Insulin No 60 units) [facility]st regular 5-16 Stable for l 01:35: 28 days at [place] 00 room temperatur e Expires in days from ____Date PlasmaLyte No 1,000 mL, Me moria A PH-7.4 16 Rate: 125 l 1000 mL 01:35: ml/hr, [place] 00 Infuse over: 8 hr, Route: IV, Dosing Weight 84.091 kg, Total Volume: 1,000, Start date: 10/28/14 20:35:00, Duration: 30 day, Stop date: 11/27/14 20:34:00 Insulin No 60 units) [facility] regular 5-16 Stable for l 01:35: 28 days at [place] 00 room temperatur e Expires in days from ____Date Dextrose No 12.5 gm, Memor ia 50% Syringe 16 Route: l 01:29: IVP, [place] 00 Dosing Weight 84.091, kg, ONCE, STAT, Start date: 10/28/14 20:29:00, Stop date: 10/28/14 20:29:00 Dextrose 2014-0 No 12.5 gm, Memor ia 50% Syringe 5-16 Route: l 01:29: IVP, [place] 00 Dosing Weight 84.091, kg, ONCE, STAT, Start date: 10/28/14 20:29:00, Stop date: 10/28/14 20:29:00 D5NS 1000 No 1,000 mL, Mem oria mL 5-16 Rate: 100 l 01:11: ml/hr, [place] 00 Infuse over: 10 hr, Route: IV, Dosing Weight 84.091 kg, Total Volume: 1,000, Start date: 10/28/14 20:11:00, Duration: 30 day, Stop date: 11/27/14 20:10:00 D5NS 1000 No 1,000 mL, Mem oria mL 5-16 Rate: 100 l 01:11: ml/hr, [place] 00 Infuse over: 10 hr, Route: IV, Dosing Weight 84.091 kg, Total Volume: 1,000, Start date: 10/28/14 20:11:00, Duration: 30 day, Stop date: 11/27/14 20:10:00 Dilaudid 2014- No Notes: [facility] 5-15 Same as: l 23:23: Dilaudid [place] 00 Dilaudid 2014-0 No Notes: [facility] 5-15 Same as: l 23:23: Dilaudid [place] Epinephrine 2014-0 No 1 ml, Memor ia 0.01 MG/ML 5-15 Route: l / Lidocaine 23:22: SUB-Q, Herm melanie Hydrochlori 00 Drug Form: de 10 MG/ML SOLN, Injectable Dosing Solution Weight 84.091, kg, ONCE, STAT, Start date: 10/28/14 18:22:00, Stop date: 10/28/14 18:22:00 Epinephrine 2014-0 No 1 ml, Memor ia 0.01 MG/ML 5-15 Route: l / Lidocaine 23:22: SUB-Q, Herm melanie Hydrochlori 00 Drug Form: de 10 MG/ML SOLN, Injectable Dosing Solution Weight 84.091, kg, ONCE, STAT, Start date: 10/28/14 18:22:00, Stop date: 10/28/14 18:22:00 Iohexol No Special [facility]oria 5-15 Instructio l 22:32: ns: Dose = [place] 00 2.2ml/kg, Max dose = 100ml -- "To be infused by Radiology Staff ONLY" Iohexol No Special Memoria 5-15 Instructio l 22:32: ns: Dose = [place] 00 2.2ml/kg, Max dose = 100ml -- "To be infused by Radiology Staff ONLY" senna 8.6 Yes Special Memor ia mg oral 5-06 Instructio l tablet 20:02: ns: with [place] 00 plenty of water cephalexin Yes Special [facility] ern[facility] 500 mg oral 5-06 Instructio l capsule 20:02: ns: take Ancelmo n 00 for the next 5 days metoprolol Yes 25 mg = 1 Me moria tartrate 25 5-06 tab, PO, l mg oral 20:02: Q12H, 0 [place]vin tablet 00 Refill(s) Acetaminoph Yes Special Mem oria en 325 MG / 5-06 Instructio l Hydrocodone 20:02: ns: 1-2 Her sen Bitartrate 00 tab PO 5 MG Oral Q4-6H prn Tablet pain not [Rosenhayn to exceed 5/325] 8 tablets/da y senna 8.6 Yes Special Memor ia mg oral 5-06 Instructio l tablet 20:02: ns: with [place]vin plenty of water cephalexin Yes Special [facility] 500 mg oral 5-06 Instructio l capsule 20:02: ns: take Ancelmo n 00 for the next 5 days metoprolol Yes 25 mg = 1 Me moria tartrate 25 5-06 tab, PO, l mg oral 20:02: Q12H, 0 [place]vin tablet 00 Refill(s) Acetaminoph Yes Special Mem oria en 325 MG / 5-06 Instructio l Hydrocodone 20:02: ns: 1-2 Her sen Bitartrate 00 tab PO 5 MG Oral Q4-6H prn Tablet pain not [Rosenhayn to exceed 5/325] 8 tablets/da y Neutra-Phos No Notes: Jed ernst 5-06 (Same as: l 12:30: Neutra-Johnnie [place] 00 s) Each 1.25 gm pkt has 250mg phosphorou s. Mix w/2.5oz water and stir. Neutra-Phos No Notes: [facility] ern[facility] 5-06 (Same as: l 12:30: Neutra-Johnnie [place] 00 s) Each 1.25 gm pkt has 250mg phosphorou s. Mix w/2.5oz water and stir. Keflex No Notes: [facility]oria 5-05 Take on l 19:00: empty [place] 00 stomach. (Same As: Keflex) Keflex No Notes: [facility] 5-05 Take on l 19:00: empty [place] 00 stomach. (Same As: Keflex) Ancef + No Notes: [facility] Sodium 5-05 (Same As: l Chloride 01:00: Ancef, [place]vin 0.9% IV 100 00 Kefzol) mL Cefazolin FOR IV SET ONLY MEDICATION WASTE Product Size: 1000 mg Product Wasted: ___ mg Ancef + No Notes: [facility] Sodium 5-05 (Same As: l Chloride 01:00: Ancef, [place] 0.9% IV 100 00 Kefzol) mL Cefazolin FOR IV SET ONLY MEDICATION WASTE Product Size: 1000 mg Product Wasted: ___ mg Insulin, No Notes: [facility]oria Aspart, 5-04 Roll in l Human 19:49: palms of [place] 00 hands gently; Do not shake vigorously . (Same as: NovoLOG) "single patient use only" Stable for 28 days at room temperatur e. Expires in days from ____Date Dextrose No 25 gm, 50 [facility] 50% Syringe 5-04 mL, Route: l 19:49: IVP, Drug [place] 00 Form: INJ, Dosing Weight 86.364, kg, PRN, PRN Blood Glucose Results, Start date: 10/17/14 14:49:00, Duration: 30 day, Stop date: 11/16/14 14:48:00 Glucagon No 1 mg, Memoria 5- Route: IM, l 19:49: Drug form: [place] 00 PDR/INJ, PRN, Dosing Weight 86.364, kg, PRN Blood Glucose Results, Start date: 10/17/14 14:49:00, Duration: 30 day, Stop date: 11/16/14 14:48:00 Insulin, No Notes: [facility] Aspart, 5- Roll in l Human 19:49: palms of [place] 00 hands gently; Do not shake vigorously . (Same as: NovoLOG) "single patient use only" Stable for 28 days at room temperatur e. Expires in days from ____Date Dextrose No 25 gm, 50 [place] [place] 50% Syringe 5-04 mL, Route: l 19:49: IVP, Drug Form: INJ, Dosing Weight 86.364, kg, PRN, PRN Blood Glucose Results, Start date: 10/17/14 14:49:00, Duration: 30 day, Stop date: 11/16/14 14:48:00 Glucagon No 1 mg, Memoria - Route: IM, l 19:49: Drug form: [place] 00 PDR/INJ, PRN, Dosing Weight 86.364, kg, PRN Blood Glucose Results, Start date: 10/17/14 14:49:00, Duration: 30 day, Stop date: 11/16/14 14:48:00 Neutra-Phos No Notes: [facility] 5-04 (Same as: l 14:01: Neutra-Johnnie [place] 00 s) Each 1.25 gm pkt has 250mg phosphorou s. Mix w/2.5oz water and stir. Neutra-Phos No Notes: [facility] 5-04 (Same as: l 14:01: Neutra-Johnnie [place] 00 s) Each 1.25 gm pkt has 250mg phosphorou s. Mix w/2.5oz water and stir. celecoxib No Notes: Memori a 5-03 NSAID. l 22:00: Please [place]vin check indication . Not for seizure. (Same As: CeleBREX ) celecoxib No Notes: Memori a - NSAID. l 22:00: Please [place] 00 check indication . Not for seizure. (Same As: CeleBREX ) tramadol No 2 tab, Memoria hydrochlori 5- Route: PO, l de 50 MG 17:00: Drug form: Her sen Oral Tablet 00 TAB, Q6H, Dosing Weight 86.364, kg, Start date: 10/16/14 12:00:00, Duration: 30 day, Stop date: 11/15/14 6:00:00 tramadol No 2 tab, Memoria hydrochlori 10-16 Route: PO, l de 50 MG 17:00: Drug form: Her sen Oral Tablet 00 TAB, Q6H, Dosing Weight 86.364, kg, Start date: 10/16/14 12:00:00, Duration: 30 day, Stop date: 11/15/14 6:00:00 ketOROLAC No 4 days Memor ia 30 mg/mL 10-16 l injectable 16:09: MEDICATION H ermann solution 00 WASTE Product Size: 30 mg Product Wasted: ___ mg ketOROLAC No 4 days Memor ia 30 mg/mL 10-16 l injectable 16:09: MEDICATION H ermann solution 00 WASTE Product Size: 30 mg Product Wasted: ___ mg potassium No Notes: Memori a phosphate + 5-03 (Same as: l Sodium 14:26: K [place] Chloride 00 Phosphate. 0.9% IV 250 ) 1 mMol mL phoshate has 1.47 mEq potassium Infuse over 4 hours potassium No Notes: Memori a phosphate + 5-03 (Same as: l Sodium 14:26: K [place] Chloride 00 Phosphate. 0.9% IV 250 ) 1 mMol mL phoshate has 1.47 mEq potassium Infuse over 4 hours Vancomycin No 2000 mg: Me moria 5-03 infuse l 13:00: over 2.5 [place] 00 hours Vancomycin No 2000 mg: Me moria 5-03 infuse l 13:00: over 2.5 [place] 00 hours metoprolol No Notes: Memor ia tartrate -03 (Same as: l 02:00: Lopressor) [place] 00 metoprolol No Notes: Memor ia tartrate - (Same as: l 02:00: Lopressor) [place] Dilaudid No Notes: Memoria 5- Same as: l 23:15: Dilaudid [place] 00 Dilaudid No Notes: Memoria 5- Same as: l 23:15: Dilaudid [place] Dilaudid No Notes: [facility]oria 5- Same as: l 20:18: Dilaudid [place] Dilaudid No Notes: [facility]oria 5- Same as: l 20:18: Dilaudid [place] Insulin No Notes: Memoria Glargine 5- Same as l 15:38: Lantus [place] 00 Solostar PEN Do not hold insulin without contacting prescriber "single patient use only" Stable for 28 days at room temperatur e. Expires in days from ____Date Insulin No Notes: [facility] Glargine - Same as l 15:38: Lantus [place] 00 Solostar PEN Do not hold insulin without contacting prescriber "single patient use only" Stable for 28 days at room temperatur e. Expires in days from ____Date vancomycin No 2001 mg: Me moria 5-02 infuse l 04:00: over 2.5 [place] 00 hours vancomycin No 2000 mg: Me moria 5-02 infuse l 04:00: over 2.5 [place] 00 hours senna 8.6 No Notes: Memori a mg oral 5-01 (Same as: l tablet 22:00: Senokot) senna 8.6 No Notes: Memori a mg oral 5-01 (Same as: l tablet 22:00: Senokot) [place] ketOROLAC No 4 days. [facility] ernst 15 mg/mL 5-01 l injectable 05:00: [place] solution 00 ketOROLAC No 4 days. [facility] ern[facility] 15 mg/mL 5-01 l injectable 05:00: [place] solution 00 vancomycin No 2000 mg: Me moria 5 infuse l 04:00: over 2.5 [place] 00 hours MEDICATION WASTE Product Size: 1000 mg Product Wasted: _0__ mg vancomycin No 2000 mg: Me moria 10-14 infuse l 04:00: over 2.5 [place] 00 hours MEDICATION WASTE Product Size: 1000 mg Product Wasted: _0__ mg atorvastati No Notes: Jed ernst n 10-14 (Same As: l 02:00: Lipitor) atorvastati No Notes: Jed ernst n 10-14 (Same As: l 02:00: Lipitor) Acetaminoph No Notes: Jed ernst en 325 MG / 4-30 (Same as: l Hydrocodone 21:27: Rosenhayn Shreya nn Bitartrate 00 325/5) Do 5 MG Oral not exceed Tablet 4gm/day of [Rosenhayn acetaminop 5/325] hen. Acetaminoph No Notes: Jed ernst en 325 MG / 4-30 (Same as: l Hydrocodone 21:27: Rosenhayn Shreya nn Bitartrate 00 325/5) Do 5 MG Oral not exceed Tablet 4gm/day of [Rosenhayn acetaminop 5/325] hen. bupivacaine No Notes: Jed ernst liposome 4-30 (Same as: l 14:10: Exparel) NOT FOR IV use Postoperat sania analgesia: Infiltrati [...] (total dose = 30 mL [266 mg]) bupivacaine No Notes: Jed ernst liposome 4-30 (Same as: l 14:10: Exparel) [place] 00 NOT FOR IV use Postoperat sania analgesia: Infiltrati [...] mL [266 mg]) quinapril No 40 mg, Memori a 4-30 Route: PO, l 14:00: Drug form: Elvin 00 TAB, Daily, Dosing Weight 86.364, kg, Start date: 10/13/14 9:00:00, Duration: 30 day, Stop date: 11/11/14 9:00:00 ferrous No Notes: Memoria sulfate 4-30 Give with l 14:00: food. "Do Elvin 00 Not Crush" Docusate No Notes: Memoria Sodium 100 4-30 (Same as: l MG Oral 14:00: Colace) [place] Capsule 00 (Do Not [Colace] Crush) Vancomycin No 2000 mg: Me moria 6.67 MG/ML 4-30 infuse l Injectable 14:00: over 2.5 Her sen Solution 00 hours MEDICATION WASTE Product Size: 1000 mg Product Wasted: ___ mg Altace No Notes: Memoria 4-30 (Same l 14:00: as:Altace) [place] 00 quinapril No 40 mg, Memori a 4-30 Route: PO, l 14:00: Drug form: [place] 00 TAB, Daily, Dosing Weight 86.364, kg, Start date: 10/13/14 9:00:00, Duration: 30 day, Stop date: 11/11/14 9:00:00 ferrous No Notes: Memoria sulfate 4-30 Give with l 14:00: food. "Do [place] 00 Not Crush" Docusate No Notes: Memoria Sodium 100 4-30 (Same as: l MG Oral 14:00: Colace) [place] Capsule 00 (Do Not [Colace] Crush) Vancomycin No 2000 mg: Me moria 6.67 MG/ML 4-30 infuse l Injectable 14:00: over 2.5 Her sen Solution 00 hours MEDICATION WASTE Product Size: 1000 mg Product Wasted: ___ mg Altace No Notes: Memoria 4-30 (Same l 14:00: as:Altace) [place] 00 Promethazin No Notes: Do M emoria e 4-30 not give l 13:34: IV push. [place]vin 00 (Same as: Phenergan) Ondansetron No Notes: Jed ernst 4-30 (Same as: l 13:34: Zofran) [place] 00 MEDICATION WASTE Product Size: 4 mg Product Wasted: ___ mg Naloxone No Notes: Memoria 4-30 (Same as: l 13:34: Narcan) Flumazenil No Notes: Memor ia 4-30 (Same as: l 13:34: Romazicon) Hydromorpho No Notes: Jed ernst ne 4-30 Same as: l 13:34: Dilaudid Labetalol No 10 mg, 2 Jed ernst 4-30 mL, Route: l 13:34: IVP, Drug form: INJ, Q5Min, Dosing Weight 86.364, kg, PRN Elevated BP, Start date: 10/13/14 8:34:00, Duration: 5 doses or times, Stop date: 10/14/14 0:00:00 Hydralazine No Notes: Jed ernst 4-30 (Same as: l 13:34: Apresoline ) Push over 5 minutes Promethazin No Notes: Do M emoria e 4-30 not give l 13:34: IV push. [place] 00 (Same as: Phenergan) Ondansetron No Notes: Jed ernst 4-30 (Same as: l 13:34: Zofran) MEDICATION WASTE Product Size: 4 mg Product Wasted: ___ mg Naloxone No Notes: Memoria 4-30 (Same as: l 13:34: Narcan) Flumazenil No Notes: Memor ia 4-30 (Same as: l 13:34: Romazicon) Hydromorpho No Notes: Jed ernst ne 4-30 Same as: l 13:34: Dilaudid Labetalol No 10 mg, 2 Jed ernst 4-30 mL, Route: l 13:34: IVP, Drug form: INJ, Q5Min, Dosing Weight 86.364, kg, PRN Elevated BP, Start date: 10/13/14 8:34:00, Duration: 5 doses or times, Stop date: 10/14/14 0:00:00 Hydralazine No Notes: Jed ernst 4-30 (Same as: l 13:34: Apresoline ) Push over 5 minutes gabapentin No Notes: Memor ia 300 MG Oral 4-30 (Same as: l Capsule 13:00: Neurontin) Herm gabapentin No Notes: Memor ia 300 MG Oral 4-30 (Same as: l Capsule 13:00: Neurontin) Herm melanie tramadol No Notes: Memoria hydrochlori 4-30 (Same As: l de 50 MG 11:00: Ultram) Ancelmo n Oral Tablet Acetaminoph No Notes: Jed ernst en 325 MG / 4-30 (Same as: l Hydrocodone 11:00: Rosenhayn Shreya nn Bitartrate 00 325/10) 10 MG Oral Tablet [Rosenhayn 10/325] tramadol No Notes: Memoria hydrochlori 4-30 (Same As: l de 50 MG 11:00: Ultram) Ancelmo n Oral Tablet Acetaminoph No Notes: Jed ernst en 325 MG / 4-30 (Same as: l Hydrocodone 11:00: Rosenhayn Shreya nn Bitartrate 00 325/10) 10 MG Oral Tablet [Rosenhayn 10/325] Insulin, No Notes: Memoria Aspart, 4-30 Roll in l Human 10:21: palms of [place] 00 hands gently; Do not shake vigorously . (Same as: NovoLOG) "single patient use only" Stable for 28 days at room temperatur e. Expires in days from ____Date Dextrose 2015-0 No 12.5 gm, Memor ia 50% Syringe 4-30 25 mL, l 10:21: Route: [place] 00 IVP, Drug Form: INJ, Dosing Weight 86.364, kg, PRN, PRN Blood Glucose Results, Start date: 10/13/14 5:21:00, Duration: 30 day, Stop date: 11/12/14 5:20:00 Glucagon 0 No 1 mg, Memoria 4-30 Route: IM, l 10:21: Drug form: [place] 00 PDR/INJ, PRN, Dosing Weight 86.364, kg, PRN Blood Glucose Results, Start date: 10/13/14 5:21:00, Duration: 30 day, Stop date: 11/12/14 5:20:00 Insulin, 2014-0 No Notes: Memoria Aspart, 4-30 Roll in l Human 10:21: palms of [place] 00 hands gently; Do not shake vigorously . (Same as: NovoLOG) "single patient use only" Stable for 28 days at room temperatur e. Expires in days from ____Date Dextrose 2014-0 No 12.5 gm, Memor ia 50% Syringe 4-30 25 mL, l 10:21: Route: [place] 00 IVP, Drug Form: INJ, Dosing Weight 86.364, kg, PRN, PRN Blood Glucose Results, Start date: 10/13/14 5:21:00, Duration: 30 day, Stop date: 11/12/14 5:20:00 Glucagon 2014-0 No 1 mg, Memoria 4-30 Route: IM, l 10:21: Drug form: [place] 00 PDR/INJ, PRN, Dosing Weight 86.364, kg, PRN Blood Glucose Results, Start date: 10/13/14 5:21:00, Duration: 30 day, Stop date: 11/12/14 5:20:00 Enoxaparin 2014-0 No Notes: Memor ia 4-30 (Same as: l 10:00: Lovenox) [place] Enoxaparin No Notes: Memor ia 4-30 (Same as: l 10:00: Lovenox) [place] 00 cefepime No Notes: Memoria 4-30 (Same As: l 09:34: Maxipime) [place] 00 MEDICATION WASTE Product Size: 1000 mg Product Wasted: ___ mg cefepime No Notes: Memoria 4-30 (Same As: l 09:34: Maxipime) [place] 00 MEDICATION WASTE Product Size: 1000 mg Product Wasted: ___ mg Insulin No 60 units) Jed ernst regular 4-30 Stable for l 09:33: 28 days at [place] 00 room temperatur e Expires in days from ____Date Saline No Notes: Memoria Flush 0.9% 4-30 (Same as: l 09:33: BD [place] 00 Posiflush) Insulin No 60 units) Jed ernst regular 4-30 Stable for l 09:33: 28 days at [place] 00 room temperatur e Expires in days from ____Date Saline No Notes: Memoria Flush 0.9% 4-30 (Same as: l 09:33: BD [place] Posiflush) Dilaudid No Notes: Memoria 4-30 Same as: l 09:27: Dilaudid [place] Dilaudid No Notes: Memoria 4-30 Same as: l 09:27: Dilaudid [place] Sodium No 250 mL, Memoria Chloride 4-30 Rate: On l 0.9% 07:44: call for [place] (titrate) 00 use with 250 mL blood product administra tion, Dosing Weight 86.364, kg, Route: IV, Total Volume: 250, Start Date: 10/13/14 2:44:00, Duration: 1 day, Stop date: 10/14/14 2:43:00, Replace Every: 24 hr Sodium No 250 mL, Memoria Chloride 10-13 Rate: On l 0.9% 07:44: call for [place] (titrate) 00 use with 250 mL blood product administra tion, Dosing Weight 86.364, kg, Route: IV, Total Volume: 250, Start Date: 10/13/14 2:44:00, Duration: 1 day, Stop date: 10/14/14 2:43:00, Replace Every: 24 hr Iohexol No Special Memoria 10-13 Instructio l 06:46: ns: Weight [place] 00 = 75 - 94kg -- "To be infused by Radiology Staff ONLY" Iohexol No Special Memoria 430 Instructio l 06:46: ns: Weight [place] 00 = 75 - 94kg -- "To be infused by Radiology Staff ONLY" Dilaudid No Notes: Memoria 30 Same as: l 06:36: Dilaudid [place] 00 Dilaudid No Notes: Memoria 30 Same as: l 06:36: Dilaudid [place] 00 Sodium No 1,000 mL, Memori a Chloride 30 1,000 l 0.154 05:25: ml/hr, [place] MEQ/ML 00 Infuse Injectable Over: 1 Solution hr, Route: IV, 1,000, Drug form: INJ, ONCE, Priority: STAT, Dosing Weight 86.364 kg, Start date: 10/13/14 0:25:00, Duration: 1 doses or times, Stop date: 10/13/14 0:25:00 Sodium No 1,000 mL, Memori a Chloride 10-13 1,000 l 0.154 05:25: ml/hr, [place] MEQ/ML 00 Infuse Injectable Over: 1 Solution hr, Route: IV, 1,000, Drug form: INJ, ONCE, Priority: STAT, Dosing Weight 86.364 kg, Start date: 10/13/14 0:25:00, Duration: 1 doses or times, Stop date: 10/13/14 0:25:00 Maxipime No Notes: Memoria 10-13 (Same As: l 05:00: Maxipime) [place] 00 MEDICATION WASTE Product Size: 1000 mg Product Wasted: _0__ mg Maxipime No Notes: Memoria 4-30 (Same As: l 05:00: Maxipime) [place] 00 MEDICATION WASTE Product Size: 1000 mg Product Wasted: _0__ mg tramadol Yes 100 mg = 2 Mem oria hydrochlori 4-27 tab, PO, l de 50 MG 22:57: Q6H, # 90 Herm melanie Oral Tablet 00 tab, 1 Refill(s) Acetaminoph Yes 1 tab, PO, Memoria en 325 MG / 4-27 Q6H, # 60 l Hydrocodone 22:57: tab, 0 Herm melanie Bitartrate 00 Refill(s), 10 MG Oral given to Tablet patient [Rosenhayn 10/325] Yes 0.8 mg = 1 Mem oria Multivitami -27 tab, PO, l ns with 22:57: Daily, # Ancelmo n Folic Acid 00 60 tab, 0 0.8 mg oral Refill(s), tablet given to patient insulin Yes 40 unit, Memori a glargine 10-10 SUB-Q, l 100 22:57: QAM, # 10 [place] units/mL 00 mL, 0 subcutaneou Refill(s) s solution gabapentin Yes 600 mg = 2 M emoria 300 MG Oral 27 cap, PO, l Capsule 22:57: Q8H, # 120 Herm melanie 00 cap, 0 Refill(s) ferrous Yes 325 mg = 1 Jed ernst sulfate 325 -27 tab, PO, l mg oral 22:57: TID, # 90 Shreya nn enteric 00 tab, 0 coated Refill(s) tablet Docusate Yes Special Memori a Sodium 100 -27 Instructio l MG Oral 22:57: ns: take Ancelmo n Capsule 00 twice [Colace] daily while taking Rosenhayn or tramadol for pain Metformin Yes 1,000 mg = Me moria hydrochlori -27 1 tab, PO, l de 1000 MG 22:57: BID, # 60 He rmann Oral Tablet 00 tab, 0 Refill(s) tramadol Yes 100 mg = 2 Mem oria hydrochlori -27 tab, PO, l de 50 MG 22:57: Q6H, # 90 Herm melanie Oral Tablet 00 tab, 1 Refill(s) Acetaminoph Yes 1 tab, PO, Memoria en 325 MG / 4-27 Q6H, # 60 l Hydrocodone 22:57: tab, 0 Herm melanie Bitartrate 00 Refill(s), 10 MG Oral given to Tablet patient [Rosenhayn 10/325] Yes 0.8 mg = 1 Mem oria Multivitami 4-27 tab, PO, l ns with 22:57: Daily, # Ancelmo n Folic Acid 00 60 tab, 0 0.8 mg oral Refill(s), tablet given to patient insulin Yes 40 unit, Memori a glargine 4-27 SUB-Q, l 100 22:57: QAM, # 10 [place] units/mL 00 mL, 0 subcutaneou Refill(s) s solution gabapentin Yes 600 mg = 2 M emoria 300 MG Oral -27 cap, PO, l Capsule 22:57: Q8H, # 120 Herm melanie 00 cap, 0 Refill(s) ferrous Yes 325 mg = 1 Jed ernst sulfate 325 4-27 tab, PO, l mg oral 22:57: TID, # 90 Shreya nn enteric 00 tab, 0 coated Refill(s) tablet Docusate Yes Special Memori a Sodium 100 4-27 Instructio l MG Oral 22:57: ns: take Ancelmo n Capsule 00 twice [Colace] daily while taking Rosenhayn or tramadol for pain Metformin Yes 1,000 mg = Me moria hydrochlori -27 1 tab, PO, l de 1000 MG 22:57: BID, # 60 He rmann Oral Tablet 00 tab, 0 Refill(s) Acetaminoph No Notes: Do M emoria en 325 MG / 4-27 not exceed l Hydrocodone 17:00: 4gm/day of [place] Bitartrate 00 acetaminop 10 MG Oral hen. (Same Tablet as: Rosenhayn [Rosenhayn 325/10) 10/325] Acetaminoph No Notes: Do M emoria en 325 MG / 4-27 not exceed l Hydrocodone 17:00: 4gm/day of [place] Bitartrate 00 acetaminop 10 MG Oral hen. (Same Tablet as: Rosenhayn [Rosenhayn 325/10) 10325] Acetaminoph No Notes: Jed ernst en 325 MG / -27 (Same as: l Hydrocodone 13:41: Rosenhayn Shreya nn Bitartrate 00 325/5) Do 5 MG Oral not exceed Tablet 4gm/day of [Rosenhayn acetaminop 5/325] hen. Acetaminoph No Notes: Jed ernst en 325 MG / -27 (Same as: l Hydrocodone 13:41: Rosenhayn Shreya nn Bitartrate 00 325/5) Do 5 MG Oral not exceed Tablet 4gm/day of [Rosenhayn acetaminop 5/325] hen. Acetaminoph No Notes: Do M emoria en 325 MG / -26 not exceed l Hydrocodone 17:00: 4gm/day of [place] Bitartrate 00 acetaminop 10 MG Oral hen. (Same Tablet as: Rosenhayn [Rosenhayn 325/10) ] Acetaminoph No Notes: Do M emoria en 325 MG / -26 not exceed l Hydrocodone 17:00: 4gm/day of [place] Bitartrate 00 acetaminop 10 MG Oral hen. (Same Tablet as: Rosenhayn [Rosenhayn 325/10) 10325] Acetaminoph No Notes: Do M emoria en 325 MG / -26 not exceed l Hydrocodone 15:01: 4gm/day of [place] Bitartrate 00 acetaminop 10 MG Oral hen. (Same Tablet as: Rosenhayn [Rosenhayn 325/10) 10325] Acetaminoph No Notes: Do M emoria en 325 MG / -26 not exceed l Hydrocodone 15:01: 4gm/day of [place] Bitartrate 00 acetaminop 10 MG Oral hen. (Same Tablet as: Rosenhayn [Rosenhayn 325/10) 10325] Insulin, No Notes: Memoria Aspart, 4- Roll in l Human 16:30: palms of [place] 00 hands gently; Do not shake vigorously . (Same as: NovoLOG) "single patient use only" Stable for 28 days at room temperatur e. Expires in days from ____Date Insulin, No Notes: Memoria Aspart, 10-05 Roll in l Human 16:30: palms of [place] 00 hands gently; Do not shake vigorously . (Same as: NovoLOG) "single patient use only" Stable for 28 days at room temperatur e. Expires in days from ____Date Magnesium No Notes: Memori a Oxide 10-05 (Same as: l 13:28: Mag-Ox [place] 00 400) Magnesium oxide [id number] g elemental magnesium Dose=____m g magnesium oxide (___mg elemental magnesium) Magnesium No Notes: Memori a Oxide 10-05 (Same as: l 13:28: Mag-Ox [place] 00 400) Magnesium oxide [id number]=698d g elemental magnesium Dose=____m g magnesium oxide (___mg elemental magnesium) Milk of No 60 ml, Memoria Magnesia 10-05 Route: PO, l 13:26: Drug Form: [place] 00 SUSP, Dosing Weight 88.636, kg, ONCE, Start date: 10/05/14 8:26:00, Stop date: 10/05/14 8:26:00 Milk of No 60 ml, Memoria Magnesia 10-05 Route: PO, l 13:26: Drug Form: [place] 00 SUSP, Dosing Weight 88.636, kg, ONCE, Start date: 10/05/14 8:26:00, Stop date: 10/05/14 8:26:00 sodium No 15 mmol, 5 Memor ia phosphate + 4-22 mL, Route: l Sodium 13:25: IVPB, PRN, Shreya nn Chloride 00 Dosing 0.9% IV 250 Weight mL 88.636, kg, PRN Abnormal Lab Result, Start date: 10/05/14 8:25:00, Duration: 30 day, Stop date: 11/04/14 8:24:00 sodium No 15 mmol, 5 Memor ia phosphate + 4-22 mL, Route: l Sodium 13:25: IVPB, PRN, Shreya nn Chloride 00 Dosing 0.9% IV 250 Weight mL 88.636, kg, PRN Abnormal Lab Result, Start date: 10/05/14 8:25:00, Duration: 30 day, Stop date: 11/04/14 8:24:00 Insulin, No Notes: Memoria Aspart, 4-22 Roll in l Human 12:30: palms of [place] 00 hands gently; Do not shake vigorously . (Same as: NovoLOG) "single patient use only" Stable for 28 days at room temperatur e. Expires in days from ____Date Insulin, No Notes: Memoria Aspart, 4-22 Roll in l Human 12:30: palms of [place] 00 hands gently; Do not shake vigorously . (Same as: NovoLOG) "single patient use only" Stable for 28 days at room temperatur e. Expires in days from ____Date Oxycodone No Notes: Memori a Hydrochlori 4-21 (Same as: l de 5 MG 23:00: Roxicodone Herm melanie Oral Tablet 00 ) Acetaminoph No Notes: . Me moria en 4-21 (Same as: l 23:00: Tylenol [place] 00 Extra Strength) Oxycodone No Notes: Memori a Hydrochlori 4-21 (Same as: l de 5 MG 23:00: Roxicodone Herm melanie Oral Tablet 00 ) Acetaminoph No Notes: . Me moria en 4-21 (Same as: l 23:00: Tylenol [place] 00 Extra Strength) Insulin, No Notes: Memoria Aspart, 4-21 Roll in l Human 21:30: palms of [place] 00 hands gently; Do not shake vigorously . (Same as: NovoLOG) "single patient use only" Stable for 28 days at room temperatur e. Expires in days from ____Date Insulin, No Notes: Memoria Aspart, 4-21 Roll in l Human 21:30: palms of [place] 00 hands gently; Do not shake vigorously . (Same as: NovoLOG) "single patient use only" Stable for 28 days at room temperatur e. Expires in days from ____Date Oxycodone No Notes: Memori a Hydrochlori 4-21 (Same as: l de 5 MG 20:23: Roxicodone Herm melanie Oral Tablet 00 ) Oxycodone No Notes: Memori a Hydrochlori 4-21 (Same as: l de 5 MG 20:23: Roxicodone Herm melanie Oral Tablet 00 ) Oxycodone No Notes: Memori a Hydrochlori 4-21 (Same as: l de 5 MG 20:22: Roxicodone Herm melanie Oral Tablet 00 ) Oxycodone No Notes: Memori a Hydrochlori 4-21 (Same as: l de 5 MG 20:22: Roxicodone Herm melanie Oral Tablet 00 ) quinapril No 40 mg, Memori a 4-21 Route: PO, l 14:00: Drug form: [place] 00 TAB, Daily, Dosing Weight 88.636, kg, Start date: 10/04/14 9:00:00, Duration: 30 day, Stop date: 11/02/14 9:00:00 Altace No Notes: Memoria 4-21 (Same l 14:00: as:Altace) quinapril No 40 mg, Memori a 4-21 Route: PO, l 14:00: Drug form: [place] 00 TAB, Daily, Dosing Weight 88.636, kg, Start date: 10/04/14 9:00:00, Duration: 30 day, Stop date: 11/02/14 9:00:00 Altace No Notes: Memoria 4-21 (Same l 14:00: as:Altace) atorvastati No Notes: Jed ernst n 4-21 (Same As: l 02:00: Lipitor) atorvastati No Notes: Jed ernst n 4-21 (Same As: l 02:00: Lipitor) Neutra-Phos No Notes: Jed ernst 4-20 (Same as: l 21:30: Neutra-Johnnie [place] 00 s) Each 1.25 gm pkt has 250mg phosphorou s. Mix w/2.5oz water and stir. Neutra-Phos No Notes: Jed ernst 4-20 (Same as: l 21:30: Neutra-Johnnie [place] 00 s) Each 1.25 gm pkt has 250mg phosphorou s. Mix w/2.5oz water and stir. Dulcolax No Notes: Memoria Laxative 4-20 (Same As: l 19:42: Dulcolax, [place] 00 Bisco-Lax) Dulcolax No Notes: Memoria Laxative 4-20 (Same As: l 19:42: Dulcolax, [place] 00 Bisco-Lax) Insulin, No Notes: Memoria Aspart, 4-20 Roll in l Human 12:30: palms of [place] 00 hands gently; Do not shake vigorously . (Same as: NovoLOG) "single patient use only" Stable for 28 days at room temperatur e. Expires in days from ____Date Insulin, No Notes: Memoria Aspart, 4-20 Roll in l Human 12:30: palms of [place] 00 hands gently; Do not shake vigorously . (Same as: NovoLOG) "single patient use only" Stable for 28 days at room temperatur e. Expires in days from ____Date Insulin, No Notes: Memoria Aspart, 4-19 Roll in l Human 22:26: palms of [place] 00 hands gently; Do not shake vigorously . (Same as: NovoLOG) "single patient use only" Stable for 28 days at room temperatur e. Expires in days from ____Date Insulin, No Notes: Memoria Aspart, 4-19 Roll in l Human 22:26: palms of [place] 00 hands gently; Do not shake vigorously . (Same as: NovoLOG) "single patient use only" Stable for 28 days at room temperatur e. Expires in days from ____Date Insulin, No 7 unit, Memori a Aspart, 4-19 Route: l Human 12:30: SUB-Q, [place] 00 Drug form: SOLN, TID-Before Meals, Dosing Weight 88.636, kg, Start date: 10/02/14 7:30:00, Duration: 30 day, Stop date: 10/31/14 16:30:00 Insulin, No 7 unit, Memori a Aspart, 4-19 Route: l Human 12:30: SUB-Q, [place] 00 Drug form: SOLN, TID-Before Meals, Dosing Weight 88.636, kg, Start date: 10/02/14 7:30:00, Duration: 30 day, Stop date: 10/31/14 16:30:00 Insulin, No Notes: Memoria Aspart, 4-18 Roll in l Human 22:08: palms of [place] 00 hands gently; Do not shake vigorously . (Same as: NovoLOG) "single patient use only" Stable for 28 days at room temperatur e. Expires in days from ____Date Insulin, No Notes: Memoria Aspart, 4-18 Roll in l Human 22:08: palms of [place] 00 hands gently; Do not shake vigorously . (Same as: NovoLOG) "single patient use only" Stable for 28 days at room temperatur e. Expires in days from ____Date Dilaudid No Notes: Memoria 4-18 Same as: l 15:01: Dilaudid [place] 00 Dilaudid No Notes: Memoria 4-18 Same as: l 15:01: Dilaudid [place] 00 Dilaudid No Notes: Memoria 4-18 Same as: l 07:32: Dilaudid [place] 00 Dilaudid No Notes: Memoria 4-18 Same as: l 07:32: Dilaudid [place] 00 Fentanyl No Notes: Memoria 4-18 (Same as: l 01:01: Sublimaze) [place] Preservati ve free. Hydromorpho No Notes: Jed ernst ne 4-18 Same as: l 01:01: Dilaudid [place] 00 Ondansetron No Notes: [place] ern[place] 4-18 (Same as: l 01:01: Zofran) [place] 00 MEDICATION WASTE Product Size: 4 mg Product Wasted: ___ mg Flumazenil No Notes: Memor ia 4-18 (Same as: l 01:01: Romazicon) [place] Naloxone No Notes: Memoria 4-18 Same as l 01:01: Narcan Hydralazine No Notes: Jed ernst 4-18 (Same as: l 01:01: Apresoline [place] 00 ) Push over 5 minutes Labetalol No 10 mg, 2 Jed ernst 4-18 mL, Route: l 01:: IVP, Drug form: INJ, Q5Min, Dosing Weight 88.636, kg, PRN Elevated BP, Start date: 09/30/14 20:01:00, Duration: 5 doses or times, Stop date: Limited # of times Metoprolol No Notes: Memor ia 4-18 (Same as: l 01:01: Lopressor) Push over 2 minutes Fentanyl No Notes: Memoria 4-18 (Same as: l 01:01: Sublimaze) [place] 00 Preservati ve free. Hydromorpho No Notes: Jed ernst ne 4-18 Same as: l 01:01: Dilaudid [place] 00 Ondansetron No Notes: Jed ernst 4-18 (Same as: l 01:01: Zofran) [place] 00 MEDICATION WASTE Product Size: 4 mg Product Wasted: ___ mg Flumazenil No Notes: Memor ia 4-18 (Same as: l 01:01: Romazicon) [place] Naloxone No Notes: Memoria 4-18 Same as l 01:01: Narcan [place] 00 Hydralazine No Notes: Jed ernst 4-18 (Same as: l :: Apresoline ) Push over 5 minutes Labetalol No 10 mg, 2 Jed ernst 4-18 mL, Route: l :: IVP, Drug form: INJ, Q5Min, Dosing Weight 88.636, kg, PRN Elevated BP, Start date: 09/30/14 20:01:00, Duration: 5 doses or times, Stop date: Limited # of times Metoprolol No Notes: Memor ia 4-18 (Same as: l :: Lopressor) Push over 2 minutes bupivacaine No Notes: Jed ern[place] liposome 4-17 (Same as: l 22:00: Exparel) NOT FOR IV use Postoperat sania analgesia: Infiltrati [...] (total dose = 30 mL [266 mg]) bupivacaine No Notes: Jed ern[place] liposome 4-17 (Same as: l 22:00: Exparel) NOT FOR IV use Postoperat sania analgesia: Infiltrati [...] 30 mL [266 mg]) Insulin, No Notes: Memoria Aspart, 4-17 Roll in l Human 16:30: palms of [place] 00 hands gently; Do not shake vigorously . (Same as: NovoLOG) "single patient use only" Stable for 28 days at room temperatur e. Expires in days from ____Date Insulin, No Notes: Memoria Aspart, 4-17 Roll in l Human 16:30: palms of [place] 00 hands gently; Do not shake vigorously . (Same as: NovoLOG) "single patient use only" Stable for 28 days at room temperatur e. Expires in days from ____Date PlasmaLyte No 1,000 mL, Me moria A PH-7.4 4-17 Rate: 70 l 1,000 mL 05:01: ml/hr, [place] 00 Infuse over: 14.3 hr, Route: IV, Dosing Weight 88.636 kg, Total Volume: 1,000, Start date: 09/30/14 0:01:00, Stop date: 10/02/14 0:00:00 PlasmaLyte No 1,000 mL, Me moria A PH-7.4 4-17 Rate: 70 l 1,000 mL 05:01: ml/hr, [place] 00 Infuse over: 14.3 hr, Route: IV, Dosing Weight 88.636 kg, Total Volume: 1,000, Start date: 09/30/14 0:01:00, Stop date: 10/02/14 0:00:00 gabapentin No Notes: Memor ia 300 MG Oral 4-17 (Same as: l Capsule 05:00: Neurontin) Herm melanie 00 Acetaminoph No Notes: Do M emoria en 325 MG / 4-17 not exceed l Hydrocodone 05:00: 4gm/day of [place] Bitartrate 00 acetaminop 10 MG Oral hen. (Same Tablet as: Rosenhayn [Rosenhayn 325/10) 10/325] gabapentin No Notes: Memor ia 300 MG Oral 4-17 (Same as: l Capsule 05:00: Neurontin) Herm melanie Acetaminoph No Notes: Do M emoria en 325 MG / 4-17 not exceed l Hydrocodone 05:00: 4gm/day of [place] Bitartrate 00 acetaminop 10 MG Oral hen. (Same Tablet as: Rosenhayn [Rosenhayn 325/10) 10/325] Zosyn No Notes: Memoria 4-17 (Same as: l 03:00: Zosyn) Dosing based on Piperacill in component MEDICATION WASTE Product Size: 3375 mg Product Wasted: ___ mg Zosyn No Notes: Memoria 4-17 (Same as: l 03:00: Zosyn) Dosing based on Piperacill in component MEDICATION WASTE Product Size: 3375 mg Product Wasted: ___ mg PlasmaLyte No 1,000 mL, Me moria A PH-7.4 09-29 Rate: 100 l 1,000 mL 22:21: ml/hr, [place] 00 Infuse over: 10 hr, Route: IV, Dosing Weight 88.636 kg, Total Volume: 1,000, bolus 500ml Plasmalyte after patient returns from CT scan, then run infusion at 100ml/h, Priority: Within 4 hours, Start date: 09/29/14 17:21:00, D... PlasmaLyte No 1,000 mL, Me moria A PH-7.4 09-29 Rate: 100 l 1,000 mL 22:21: ml/hr, [place] 00 Infuse over: 10 hr, Route: IV, Dosing Weight 88.636 kg, Total Volume: 1,000, bolus 500ml Plasmalyte after patient returns from CT scan, then run infusion at 100ml/h, Priority: Within 4 hours, Start date: 09/29/14 17:21:00, D... Valium No Notes: Memoria 4-16 (Same as: l 21:52: Valium) Valium No Notes: Memoria 4-16 (Same as: l 21:52: Valium) Lantus No Notes: Memoria 4-16 Same as l 14:00: Lantus Solostar PEN Do not hold insulin without contacting prescriber "single patient use only" Stable for 28 days at room temperatur e. Expires in days from ____Date Lantus No Notes: Memoria 4-16 Same as l 14:00: Lantus [place] 00 Solostar PEN Do not hold insulin without contacting prescriber "single patient use only" Stable for 28 days at room temperatur e. Expires in days from ____Date insulin No Notes: Memoria detemir 4-16 Same as l 02:00: Levemir Do [place] 00 not hold insulin without contacting prescriber "single patient use only" insulin No Notes: Memoria detemir 4-16 Same as l 02:00: Levemir Do [place] 00 not hold insulin without contacting prescriber "single patient use only" Albuterol No Notes: Memori a 0.833 MG/ML -16 (Same as: :56: Duoneb) [place] Ipratropium 00 [place] 0.167 MG/ML Inhalant Solution [DuoNeb] Albuterol No Notes: Memori a 0.833 MG/ML 4-16 (Same as: :56: Duoneb) [place] Ipratropium 00 [place] 0.167 MG/ML Inhalant Solution [DuoNeb] Lidocaine No Notes: Memori a Hydrochlori 4-16 Apply only l de 0.05 01:13: once for Ancelmo n MG/MG 00 up to 12 Transdermal hours in a Patch 24-hour [Lidoderm] period (12 hours on and 12 hours off). (Same as: Lidoderm) "Remove old patch before applicatio n of new patch" Lidocaine No Notes: Memori a Hydrochlori 4-16 Apply only l de 0.05 01:13: once for Ancelmo n MG/MG 00 up to 12 Transdermal hours in a Patch 24-hour [Lidoderm] period (12 hours on and 12 hours off). (Same as: Lidoderm) "Remove old patch before applicatio n of new patch" Acetaminoph No Notes: Do M emoria en 325 MG / 4-16 not exceed l Hydrocodone 01:01: 4gm/day of [place] Bitartrate 00 acetaminop 10 MG Oral hen. (Same Tablet as: [place] [Rosenhayn 325/10) ] Acetaminoph No Notes: Do M emoria en 325 MG / 4-16 not exceed l Hydrocodone 01:01: 4gm/day of [place] Bitartrate 00 acetaminop 10 MG Oral hen. (Same Tablet as: [place] [[place]n 325/10) ] Metformin No Notes: Memori a hydrochlori 4-15 (Same as: l de 500 MG 22:00: Glucophage [place] Oral Tablet 00 ) Take with meal Metformin No Notes: Memori a hydrochlori 4-15 (Same as: l de 500 MG 22:00: Glucophage He r[place] Oral Tablet 00 ) Take with meal Insulin, No Notes: Memoria Aspart, 4-15 Roll in l Human 21:00: palms of [place] 00 hands gently; Do not shake vigorously . (Same as: NovoLOG) "single patient use only" Stable for 28 days at room temperatur e. Expires in days from ____Date Insulin, No Notes: Memoria Aspart, 4-15 Roll in l Human 21:00: palms of [place] 00 hands gently; Do not shake vigorously . (Same as: NovoLOG) "single patient use only" Stable for 28 days at room temperatur e. Expires in days from ____Date Insulin, No Notes: Memoria Aspart, 4-15 Roll in l Human 18:46: palms of [place] 00 hands gently; Do not shake vigorously . (Same as: NovoLOG) "single patient use only" Stable for 28 days at room temperatur e. Expires in days from ____Date Glucagon No 1 mg, Memoria 4-15 Route: IM, l 18:46: Drug form: [place] 00 PDR/INJ, PRN, Dosing Weight 88.636, kg, PRN Blood Glucose Results, Start date: 09/28/14 13:46:00, Duration: 30 day, Stop date: 10/28/14 13:45:00 Dextrose 2014- No 25 gm, 50 [place] 50% Syringe 4-15 mL, Route: l 18:46: IVP, Drug [place] 00 Form: INJ, Dosing Weight 88.636, kg, PRN, PRN Blood Glucose Results, Start date: 09/28/14 13:46:00, Duration: 30 day, Stop date: 10/28/14 13:45:00 Insulin, 0 No Notes: Memoria Aspart, 4-15 Roll in l Human 18:46: palms of [place] 00 hands gently; Do not shake vigorously . (Same as: NovoLOG) "single patient use only" Stable for 28 days at room temperatur e. Expires in days from ____Date Glucagon 2014-0 No 1 mg, Memoria 4-15 Route: IM, l 18:46: Drug form: [place] 00 PDR/INJ, PRN, Dosing Weight 88.636, kg, PRN Blood Glucose Results, Start date: 09/28/14 13:46:00, Duration: 30 day, Stop date: 10/28/14 13:45:00 Dextrose 2014- No 25 gm, 50 [place] 50% Syringe 4-15 mL, Route: l 18:46: IVP, Drug [place] 00 Form: INJ, Dosing Weight 88.636, kg, PRN, PRN Blood Glucose Results, Start date: 09/28/14 13:46:00, Duration: 30 day, Stop date: 10/28/14 13:45:00 Insulin, 2014-0 No Notes: Memoria Aspart, 4-15 Roll in l Human 17:16: palms of [place] 00 hands gently; Do not shake vigorously . (Same as: NovoLOG) "single patient use only" Stable for 28 days at room temperatur e. Expires in days from ____Date Insulin, 2014-0 No Notes: Memoria Aspart, 4-15 Roll in l Human 17:16: palms of [place] 00 hands gently; Do not shake vigorously . (Same as: NovoLOG) "single patient use only" Stable for 28 days at room temperatur e. Expires in days from ____Date Propranolol No Notes: Jed ernst 4-15 Give with l 02:00: food. [place] 00 (Same as: Inderal) Propranolol No Notes: Jed ernst 4-15 Give with l 02:00: food. [place] 00 (Same as: Inderal) remove No Notes: Memoria patch 4-14 Remove l 21:00: patch 12 [place] 00 hours after applicatio n each day. remove No Notes: Memoria patch 4-14 Remove l 21:00: patch 12 [place] 00 hours after applicatio n each day. Neutra-Phos No Notes: Jed ernst 4-14 (Same as: l 15:30: Neutra-Johnnie [place] 00 s) Each 1.25 gm pkt has 250mg phosphorou s. Mix w/2.5oz water and stir. Neutra-Phos No Notes: Jed ernst 4-14 (Same as: l 15:30: Neutra-Johnnie [place] 00 s) Each 1.25 gm pkt has 250mg phosphorou s. Mix w/2.5oz water and stir. Insulin, No Notes: Memoria Aspart, 4-14 Roll in l Human 00:19: palms of [place] 00 hands gently; Do not shake vigorously . (Same as: NovoLOG) "single patient use only" Stable for 28 days at room temperatur e. Expires in days from ____Date Dextrose No 12.5 gm, Memor ia 50% Syringe 09-27 25 mL, l 00:19: Route: [place] 00 IVP, Drug Form: INJ, Dosing Weight 88.636, kg, PRN, PRN Blood Glucose Results, Start date: 09/26/14 19:19:00, Duration: 30 day, Stop date: 10/26/14 19:18:00 Glucagon No 1 mg, Memoria -14 Route: IM, l 00:19: Drug form: [place] 00 PDR/INJ, PRN, Dosing Weight 88.636, kg, PRN Blood Glucose Results, Start date: 09/26/14 19:19:00, Duration: 30 day, Stop date: 10/26/14 19:18:00 Insulin, No Notes: Memoria Aspart, 4-14 Roll in l Human 00:19: palms of [place] 00 hands gently; Do not shake vigorously . (Same as: NovoLOG) "single patient use only" Stable for 28 days at room temperatur e. Expires in days from ____Date Dextrose No 12.5 gm, Memor ia 50% Syringe 4-14 25 mL, l 00:19: Route: [place] 00 IVP, Drug Form: INJ, Dosing Weight 88.636, kg, PRN, PRN Blood Glucose Results, Start date: 09/26/14 19:19:00, Duration: 30 day, Stop date: 10/26/14 19:18:00 Glucagon No 1 mg, Memoria 4-14 Route: IM, l 00:19: Drug form: [place] 00 PDR/INJ, PRN, Dosing Weight 88.636, kg, PRN Blood Glucose Results, Start date: 09/26/14 19:19:00, Duration: 30 day, Stop date: 10/26/14 19:18:00 Acetaminoph No Notes: Jed ernst en 325 MG / -13 (Same as: l Hydrocodone 17:00: Rosenhayn Shreya nn Bitartrate 00 325/5) Do 5 MG Oral not exceed Tablet 4gm/day of [Rosenhayn acetaminop 5/325] hen. Acetaminoph No Notes: Jed ernst en 325 MG / 4-13 (Same as: l Hydrocodone 17:00: Rosenhayn Shreya nn Bitartrate 00 325/5) Do 5 MG Oral not exceed Tablet 4gm/day of [Rosenhayn acetaminop 5/325] hen. Propranolol No Notes: Jed ernst 4-13 Give with l 16:30: food. [place] 00 (Same as: Inderal) Propranolol No Notes: Jed ernst 4-13 Give with l 16:30: food. [place] 00 (Same as: Inderal) PlasmaLyte No 1,000 mL, Me moria A PH-7.4 09-26 Rate: l 1,000 mL 16:04: 1,000 [place] 00 ml/hr, Infuse over: 1 hr, Route: IV, Dosing Weight 88.636 kg, Total Volume: 1,000, Start date: 09/26/14 11:04:00, Duration: 1 doses or times, Stop date: 09/26/14 12:03:00 PlasmaLyte No 1,000 mL, Me moria A PH-7.4 09-26 Rate: l 1,000 mL 16:04: 1,000 [place] 00 ml/hr, Infuse over: 1 hr, Route: IV, Dosing Weight 88.636 kg, Total Volume: 1,000, Start date: 09/26/14 11:04:00, Duration: 1 doses or times, Stop date: 09/26/14 12:03:00 Levemir No Notes: Memoria 4-13 Same as l 02:00: Levemir Do [place] 00 not hold insulin without contacting prescriber "single patient use only" Levemir No Notes: Memoria 4-13 Same as l 02:00: Levemir Do [place] 00 not hold insulin without contacting prescriber "single patient use only" Oxycodone No Notes: Memori a Hydrochlori 4-12 (Same as: l de 5 MG 23:00: Roxicodone Herm melanie Oral Tablet 00 ) Oxycodone No Notes: Memori a Hydrochlori 4-12 (Same as: l de 5 MG 23:00: Roxicodone Herm melanie Oral Tablet 00 ) Lidocaine No Notes: Memori a Hydrochlori 4-12 Apply only l de 0.05 21:00: once for Ancelmo n MG/MG 00 up to 12 Transdermal hours in a Patch 24-hour [Lidoderm] period (12 hours on and 12 hours off). (Same as: Lidoderm) "Remove old patch before applicatio n of new patch" Lidocaine No Notes: Memori a Hydrochlori 4-12 Apply only l de 0.05 21:00: once for Ancelmo n MG/MG 00 up to 12 Transdermal hours in a Patch 24-hour [Lidoderm] period (12 hours on and 12 hours off). (Same as: Lidoderm) "Remove old patch before applicatio n of new patch" celecoxib No Notes: Memori a 4-12 NSAID. l 20:37: Please [place] 00 check indication . Not for seizure. (Same As: CeleBREX ) Tramadol No Notes: Not Mem oria 4-12 to exceed l 20:37: 400mg/day. [place] 00 (Same As: Ultram) Oxycodone No Notes: Memori a Hydrochlori 4-12 (Same as: l de 5 MG 20:37: Roxicodone Herm melanie Oral Tablet ) celecoxib No Notes: Memori a 4-12 NSAID. l 20:37: Please [place] 00 check indication . Not for seizure. (Same As: CeleBREX ) Tramadol No Notes: Not Mem oria 4-12 to exceed l 20:37: 400mg/day. [place] 00 (Same As: Ultram) Oxycodone No Notes: Memori a Hydrochlori 4-12 (Same as: l de 5 MG 20:37: Roxicodone Herm melanie Oral Tablet ) Dextrose No Special Memori a 50% Syringe 4-12 Instructio l 20:34: ns: For FSBG < 40 mg/dL Insulin No 60 units) Jed ernst regular 4-12 Stable for l 20:34: 28 days at [place] 00 room temperatur e Expires in days from ____Date Dextrose No Special Memori a 50% Syringe 4-12 Instructio l 20:34: ns: For FSBG < 40 mg/dL Insulin No 60 units) Jed ernst regular 4-12 Stable for l 20:34: 28 days at [place] 00 room temperatur e Expires in days from ____Date Iohexol No Notes: Memoria 4-12 (Same l 17:24: as:Omnipaq [place] 00 ue 350). Iohexol No Notes: Memoria 4-12 (Same l 17:24: as:Omnipaq [place] 00 ue 350). Oxycodone No Notes: Memori a Hydrochlori 4-12 (Same as: l de 5 MG 17:21: Roxicodone Herm melanie Oral Tablet 00 ) Oxycodone No Notes: Memori a Hydrochlori 4-12 (Same as: l de 5 MG 17:21: Roxicodone Herm melanie Oral Tablet 00 ) Morphine No Notes: Memoria 4-12 (Same l 15:11: as:MORPhin [place] 00 e Sulfate) Morphine No Notes: Memoria 4-12 (Same l 15:11: as:MORPhin [place] 00 e Sulfate) No 1 tab, Memoria Multivitami 4-12 Route: PO, l ns with 14:00: Drug Form: Herm melanie Folic Acid 00 TAB, 0.8 mg oral Dosing tablet Weight 88.636, kg, Daily, Start date: 09/25/14 9:00:00, Duration: 30 day, Stop date: 10/24/14 9:00:00 No 1 tab, Memoria Multivitami 4-12 Route: PO, l ns with 14:00: Drug Form: Herm melanie Folic Acid 00 TAB, 0.8 mg oral Dosing tablet Weight 88.636, kg, Daily, Start date: 09/25/14 9:00:00, Duration: 30 day, Stop date: 10/24/14 9:00:00 ferrous No Notes: Memoria sulfate 4-11 Give with l 22:00: food. "Do [place] 00 Not Crush" ferrous No Notes: Memoria sulfate 4-11 Give with l 22:00: food. "Do [place] 00 Not Crush" ferrous No Notes: Memoria sulfate 4-11 Give with l 18:00: food. iron [place] 00 elemental [id number] as ferrous sulfate Dose=___mg elemental iron ferrous No Notes: Memoria sulfate 4-11 Give with l 18:00: food. iron [place] 00 elemental [id number] as ferrous sulfate Dose=___mg elemental iron insulin No Notes: Memoria detemir 4-10 Same as l 17:54: Levemir Do [place] 00 not hold insulin without contacting prescriber "single patient use only" insulin No Notes: Memoria detemir 4-10 Same as l 17:54: Levemir Do [place] 00 not hold insulin without contacting prescriber "single patient use only" Miralax No Notes: Memoria 4-10 Dissolve l 14:00: in 8 oz of [place] 00 water or juice. (Same as: Miralax) Miralax No Notes: Memoria 4-10 Dissolve l 14:00: in 8 oz of [place] 00 water or juice. (Same as: Miralax) Bisacodyl No Notes: Memori a 4-10 (Same As: l 13:59: Dulcolax, [place] 00 Bisco-Lax) Bisacodyl No Notes: Memori a 4-10 (Same As: l 13:59: Dulcolax, [place] 00 Bisco-Lax) gabapentin No Notes: Memor ia 300 MG Oral 4-10 (Same as: l Capsule 05:00: Neurontin) Herm melanie 00 gabapentin No Notes: Memor ia 300 MG Oral 4-10 (Same as: l Capsule 05:00: Neurontin) Herm melanie 00 insulin No Notes: Memoria detemir 4-10 Same as l 02:00: Levemir Do not hold insulin without contacting prescriber "single patient use only" insulin No Notes: Memoria detemir 4-10 Same as l 02:00: Levemir Do not hold insulin without contacting prescriber "single patient use only" senna 8.6 No Notes: Memori a mg oral 4-09 (Same as: l tablet 22:00: Senokot) [place] 00 Naproxen No Notes: Memoria 4-09 (Same as: l 22:00: Naprosyn) [place] 00 Docusate No Notes: Memoria Sodium 100 4-09 (Same as: l MG Oral 22:00: Colace) [place] Capsule 00 [Colace] insulin 2015-0 No 5 unit, Memoria detemir 09-22 Route: l 22:00: SUB-Q, [place] 00 QPM, Dosing Weight 88.636, kg, Start date: 09/22/14 17:00:00, Duration: 30 day, Stop date: 10/21/14 17:00:00 senna 8.6 No Notes: Memori a mg oral 09-22 (Same as: l tablet 22:00: Senokot) Naproxen No Notes: Memoria 09-22 (Same as: l 22:00: Naprosyn) Docusate No Notes: Memoria Sodium 100 09-22 (Same as: l MG Oral 22:00: Colace) Capsule 00 [Colace] insulin No 5 unit, Memoria detemir 09-22 Route: l 22:00: SUB-Q, [place] 00 QPM, Dosing Weight 88.636, kg, Start date: 09/22/14 17:00:00, Duration: 30 day, Stop date: 10/21/14 17:00:00 Insulin, No 6 unit, Memori a Aspart, 09-22 Route: l Human 16:30: SUB-Q, [place] 00 Drug form: SOLN, TID-Before Meals, Dosing Weight 88.636, kg, Start date: 09/22/14 11:30:00, Duration: 30 day, Stop date: 10/22/14 7:30:00 Insulin, No 6 unit, Memori a Aspart, 09-22 Route: l Human 16:30: SUB-Q, [place] Drug form: SOLN, TID-Before Meals, Dosing Weight 88.636, kg, Start date: 09/22/14 11:30:00, Duration: 30 day, Stop date: 10/22/14 7:30:00 insulin No Notes: Memoria detemir 09-22 Same as l 16:12: Levemir Do not hold insulin without contacting prescriber "single patient use only" insulin No Notes: Memoria detemir 09-22 Same as l 16:12: Levemir Do not hold insulin without contacting prescriber "single patient use only" Insulin, No Notes: Memoria Aspart, 09-22 Roll in l Human 15:50: palms of [place] 00 hands gently; Do not shake vigorously . (Same as: NovoLOG) "single patient use only" Stable for 28 days at room temperatur e. Expires in days from ____Date Insulin, No Notes: Memoria Aspart, 09-22 Roll in l Human 15:50: palms of [place] 00 hands gently; Do not shake vigorously . (Same as: NovoLOG) "single patient use only" Stable for 28 days at room temperatur e. Expires in days from ____Date Insulin, No 7 unit, Memori a Aspart, 09-22 Route: l Human 14:57: SUB-Q, [place] 00 Drug form: SOLN, TID-Before Meals, Dosing Weight 88.636, kg, PRN Blood Glucose Results, Start date: 09/22/14 9:57:00, Duration: 30 day, Stop date: 10/22/14 9:56:00 Insulin, No 7 unit, Memori a Aspart, 09-22 Route: l Human 14:57: SUB-Q, [place] Drug form: SOLN, TID-Before Meals, Dosing Weight 88.636, kg, PRN Blood Glucose Results, Start date: 09/22/14 9:57:00, Duration: 30 day, Stop date: 10/22/14 9:56:00 insulin No Notes: Memoria detemir 4-08 Same as l 20:00: Levemir Do [place] not hold insulin without contacting prescriber "single patient use only" insulin No Notes: Memoria detemir 4-08 Same as l 20:00: Levemir Do [place] 00 not hold insulin without contacting prescriber "single patient use only" insulin No Notes: Memoria detemir 4-08 Same as l 15:40: Levemir Do [place] 00 not hold insulin without contacting prescriber "single patient use only" insulin No Notes: Memoria detemir 4-08 Same as l 15:40: Levemir Do [place] 00 not hold insulin without contacting prescriber "single patient use only" Insulin, No Notes: Memoria Aspart, 4-07 Roll in l Human 21:30: palms of [place] 00 hands gently; Do not shake vigorously . (Same as: NovoLOG) "single patient use only" Stable for 28 days at room temperatur e. Expires in days from ____Date Insulin, No Notes: Memoria Aspart, 4-07 Roll in l Human 21:30: palms of [place] 00 hands gently; Do not shake vigorously . (Same as: NovoLOG) "single patient use only" Stable for 28 days at room temperatur e. Expires in days from ____Date ergocalcife No Notes: Jed ernst rol 4-07 (Same as: l 21:00: Vitamin D) [place] 00 "Do Not Crush" ergocalcife No Notes: Jed ernst rol 4-07 (Same as: l 21:00: Vitamin D) [place] "Do Not Crush" Glucagon No 1 mg, Memoria 4-07 Route: IM, l 20:01: Drug form: [place] 00 PDR/INJ, PRN, Dosing Weight 88.636, kg, PRN Blood Glucose Results, Start date: 09/20/14 15:01:00, Duration: 30 day, Stop date: 10/20/14 15:00:00 Dextrose No 25 gm, 50 [place] 50% Syringe -07 mL, Route: l 20:01: IVP, Drug Form: INJ, Dosing Weight 88.636, kg, PRN, PRN Blood Glucose Results, Start date: 09/20/14 15:01:00, Duration: 30 day, Stop date: 10/20/14 15:00:00 Insulin, No Notes: Memoria Aspart, 4-07 Roll in l Human 20:01: palms of [place] 00 hands gently; Do not shake vigorously . (Same as: NovoLOG) "single patient use only" Stable for 28 days at room temperatur e. Expires in days from ____Date Glucagon No 1 mg, Memoria 09-20 Route: IM, l 20:01: Drug form: [place] 00 PDR/INJ, PRN, Dosing Weight 88.636, kg, PRN Blood Glucose Results, Start date: 09/20/14 15:01:00, Duration: 30 day, Stop date: 10/20/14 15:00:00 Dextrose No 25 gm, 50 [place] 50% Syringe 4-07 mL, Route: l 20:01: IVP, Drug [place] 00 Form: INJ, Dosing Weight 88.636, kg, PRN, PRN Blood Glucose Results, Start date: 09/20/14 15:01:00, Duration: 30 day, Stop date: 10/20/14 15:00:00 Insulin, No Notes: Memoria Aspart, 09-20 Roll in l Human 20:01: palms of [place] 00 hands gently; Do not shake vigorously . (Same as: NovoLOG) "single patient use only" Stable for 28 days at room temperatur e. Expires in days from ____Date pneumococca No Notes: Jed ernst l capsular 09-20 (Same as: l polysacchar 14:00: Pneumovax H ermann amira type 1 23) vaccine / Refrigerat pneumococca e l capsular polysacchar amira type 10A vaccine / pneumococca l capsular polysacchar amira type 11A vaccine / pneumococca l capsular polysacchar amira type 12F vaccine / pneumococca l capsular polysacchar Celebrex No Notes: Memoria 4- NSAID. l 14:00: Please [place] 00 check indication . Not for seizure. (Same As: CeleBREX ) pneumococca No Notes: Jed ernst l capsular 09-20 (Same as: l polysacchar 14:00: Pneumovax H ermann amira type 1 23) vaccine / Refrigerat pneumococca e l capsular polysacchar amira type 10A vaccine / pneumococca l capsular polysacchar amira type 11A vaccine / pneumococca l capsular polysacchar amira type 12F vaccine / pneumococca l capsular polysacchar Celebrex No Notes: Memoria 4-07 NSAID. l 14:00: Please [place] 00 check indication . Not for seizure. (Same As: CeleBREX ) Insulin No 60 units) Jed ernst regular -07 Stable for l 07:32: 28 days at [place] 00 room temperatur e Expires in days from ____Date Insulin No 60 units) Jed ernst regular -07 Stable for l 07:32: 28 days at [place] 00 room temperatur e Expires in days from ____Date PlasmaLyte No 1,000 mL, Me moria A PH-7.4 09-20 Rate: 100 l 1,000 mL 07:20: ml/hr, [place] 00 Infuse over: 10 hr, Route: IV, Dosing Weight 88.636 kg, Total Volume: 1,000, Start date: 09/20/14 2:20:00, Duration: 30 day, Stop date: 10/20/14 2:19:00 PlasmaLyte No 1,000 mL, Me moria A PH-7.4 09-20 Rate: 100 l 1,000 mL 07:20: ml/hr, [place] 00 Infuse over: 10 hr, Route: IV, Dosing Weight 88.636 kg, Total Volume: 1,000, Start date: 09/20/14 2:20:00, Duration: 30 day, Stop date: 10/20/14 2:19:00 quinapril Yes 40 mg = 1 Mem oria 40 mg oral 4-07 tab, PO, l tablet 06:46: Daily, 0 [place] 00 Refill(s) atorvastati Yes 20 mg = 1 M emoria n 20 mg 4-07 tab, PO, l oral tablet 06:46: Bedtime, 0 [place] 00 Refill(s) methocarbam No 750 mg = 1 Memoria ol 750 mg 4-07 tab, PO, l oral tablet 06:46: PRN q 8 Her sen 00 hrs, 0 Refill(s) quinapril Yes 40 mg = 1 Mem oria 40 mg oral 4-07 tab, PO, l tablet 06:46: Daily, 0 [place] 00 Refill(s) atorvastati Yes 20 mg = 1 M emoria n 20 mg 4-07 tab, PO, l oral tablet 06:46: Bedtime, 0 [place] 00 Refill(s) methocarbam No 750 mg = 1 Memoria ol 750 mg 4-07 tab, PO, l oral tablet 06:46: PRN q 8 Her sen 00 hrs, 0 Refill(s) Glyburide 5 No 1 tab, PO, Memoria MG / 4-07 TID, 0 l Metformin 06:41: Refill(s) Her [facility] hydrochlori 00 de 500 MG Oral Tablet Aspirin 81 Yes 81 mg = 1 Me moria MG Enteric 4-07 tab, PO, l Coated 06:41: Daily, 0 [place] Tablet 00 Refill(s) Glyburide 5 No 1 tab, PO, Memoria MG / 4-07 TID, 0 l Metformin 06:41: Refill(s) Her [facility] hydrochlori 00 de 500 MG Oral Tablet Aspirin 81 Yes 81 mg = 1 Me moria MG Enteric 4-07 tab, PO, l Coated 06:41: Daily, 0 [place] Tablet 00 Refill(s) Dextrose No 25 gm, 50 [place] 50% Syringe 407 mL, Route: l 05:17: IVP, Drug Form: INJ, Dosing Weight 88.636, kg, PRN, PRN Blood Glucose Results, Start date: 09/20/14 0:17:00, Duration: 30 day, Stop date: 10/20/14 0:16:00 Insulin, No Notes: Memoria Aspart, 09-20 Roll in l Human 05:17: palms of [place] 00 hands gently; Do not shake vigorously . (Same as: NovoLOG) "single patient use only" Stable for 28 days at room temperatur e. Expires in days from ____Date Glucagon No 1 mg, Memoria 09-20 Route: IM, l 05:17: Drug form: [place] 00 PDR/INJ, PRN, Dosing Weight 88.636, kg, PRN Blood Glucose Results, Start date: 09/20/14 0:17:00, Duration: 30 day, Stop date: 10/20/14 0:16:00 Dextrose No 25 gm, 50 [place] 50% Syringe 4-07 mL, Route: l 05:17: IVP, Drug 00 Form: INJ, Dosing Weight 88.636, kg, PRN, PRN Blood Glucose Results, Start date: 09/20/14 0:17:00, Duration: 30 day, Stop date: 10/20/14 0:16:00 Insulin, No Notes: Memoria Aspart, 09-20 Roll in l Human 05:17: palms of [place] hands gently; Do not shake vigorously . (Same as: NovoLOG) "single patient use only" Stable for 28 days at room temperatur e. Expires in days from ____Date Glucagon No 1 mg, Memoria 09-20 Route: IM, l 05:17: Drug form: [place] 00 PDR/INJ, PRN, Dosing Weight 88.636, kg, PRN Blood Glucose Results, Start date: 09/20/14 0:17:00, Duration: 30 day, Stop date: 10/20/14 0:16:00 Tramadol No Notes: Not Mem oria -07 to exceed l 05:00: 400mg/day. [place] 00 (Same As: Ultram) Lyrica No Notes: Memoria 4-07 (Same as: l 05:00: Lyrica) [place] 00 Tramadol No Notes: Not Mem oria 4-07 to exceed l 05:00: 400mg/day. [place] 00 (Same As: Ultram) Lyrica No Notes: Memoria 4-07 (Same as: l 05:00: Lyrica) [place] Tylenol No Notes: Max Jed ernst -07 acetaminop l 04:00: hen 4000 [place] 00 mg/day (4 gm/day). (Same as: Tylenol Extra Strength) Tylenol No Notes: Max Jed ernst 09-20 acetaminop l 04:00: hen 4000 [place] 00 mg/day (4 gm/day). (Same as: Tylenol Extra Strength) Enoxaparin No Notes: Memor ia 09-20 (Same as: l 03:00: Lovenox) [place] 00 Enoxaparin No Notes: Memor ia 09-20 (Same as: l 03:00: Lovenox) [place] 00 Dilaudid No Notes: Memoria 09-19 Same as: l 23:55: Dilaudid [place] 00 Dilaudid No Notes: Memoria 09-19 Same as: l 23:55: Dilaudid [place] iodixanol No Special Memor ia 09-19 Instructio l 23:26: ns: Dose = [place] 00 2.2ml/kg, Max dose = 100ml -- "To be infused by Radiology Staff ONLY" iodixanol No Special Memor ia 09-19 Instructio l 23:26: ns: Dose = [place] 00 2.2ml/kg, Max dose = 100ml -- "To be infused by Radiology Staff ONLY" Iohexol No Special Memoria 09-19 Instructio l 23:24: ns: Dose = [place] 00 2.2ml/kg, Max dose = 100ml -- "To be infused by Radiology Staff ONLY" Iohexol No Special Memoria 09-19 Instructio l 23:24: ns: Dose = [place] 00 2.2ml/kg, Max dose = 100ml -- "To be infused by Radiology Staff ONLY" fluorescein No Route: Jed ernst ophthalmic 09-19 RIGHT EYE, l 1 mg test 22:50: ONCE, [place] 00 Start date: 09/19/14 17:50:00, Stop date: 09/19/14 17:50:00 Proparacain No 1 drp, Jed ernst e 09-19 Route: l hydrochlori 22:50: RIGHT EYE, [place] de 5 MG/ML 00 ONCE, Drug Ophthalmic form: Solution SOLN, Priority: STAT, Start date: 09/19/14 17:50:00, Stop date: 09/19/14 17:50:00 fluorescein No Route: Jed ernst ophthalmic 4-06 RIGHT EYE, l 1 mg test 22:50: ONCE, [place] 00 Start date: 09/19/14 17:50:00, Stop date: 09/19/14 17:50:00 Proparacain No 1 drp, Jed ernst e 4-06 Route: l hydrochlori 22:50: RIGHT EYE, [place] de 5 MG/ML 00 ONCE, Drug Ophthalmic form: Solution SOLN, Priority: STAT, Start date: 09/19/14 17:50:00, Stop date: 09/19/14 17:50:00 Saline No Notes: Memoria Flush 0.9% - (Same as: l 22:49: BD [place] Posiflush) Morphine No Notes: Memoria 4-06 (Same l 22:49: as:MORPhin [place] 00 e Sulfate) Ondansetron No Notes: Jed ernst 4-06 (Same as: l 22:49: Zofran) [place] 00 MEDICATION WASTE Product Size: 4 mg Product Wasted: ___ mg Saline No Notes: Memoria Flush 0.9% -06 (Same as: l 22:49: BD [place] 00 Posiflush) Morphine No Notes: Memoria 4-06 (Same l 22:49: as:MORPhin [place] 00 e Sulfate) Ondansetron No Notes: Jed ernst 4-06 (Same as: l 22:49: Zofran) [place] 00 MEDICATION WASTE Product Size: 4 mg Product Wasted: ___ mg Veltassa Veltassa Yes Macy 1 packet Co mmon Millender with food Spiri t - [facility] Amlodipine Amlodipine Yes Macy 1 tablet Common Besylate Besylate Millender [facility] Aspirin Aspirin Yes Macy 1 tablet Comm on Adult Low Adult Low Millender Spirit Dose Dose - [facility] Metoprolol Metoprolol Yes Macy 1 tablet Common Tartrate Tartrate Millender [facility] Furosemide Furosemide Yes Macy 1 tablet Common Millender as needed Spiri t for leg - [facility] swelling [facility] Carvedilol Carvedilol Yes Macy 2 tablets Common Millender (50 mg) [facility] HydrALAZINE HydrALAZINE Yes Macy 1 tablet Common HCl HCl Millender with food Spiri t - [facility] OneTouch OneTouch Yes Macy TEST 3 Comm on Ultra Test Ultra Test Millender TIMES A DAY [facility] Doxazosin Doxazosin Yes Macy 1 tablet Common Mesylate Mesylate Millender in evening [facility] Furosemide Furosemide No QD Furosemide 20 mg 20 mg 20 mg amLODIPine amLODIPine No 1{table QD amLODIPine Besylate 10 Besylate 10 t} Besylate MG MG 10 MG hydrALAZINE hydrALAZINE No 1{table TID hydrALAZIN HCl 100 MG HCl 100 MG t_with_ E HCl 100 food} MG OneTouch OneTouch No OneTouch Ultra Test Ultra Test Ultra Test - - - Aspirin Aspirin No 1{table QD Aspirin Adult Low Adult Low t} Adult Low Dose 81 MG Dose 81 MG Dose 81 MG Metoprolol Metoprolol No 1{table BID Metoprolol Tartrate 50 Tartrate 50 t} Tartrate MG MG 50 MG Doxazosin Doxazosin No QD Doxazosin Mesylate 2 Mesylate 2 Mesylate 2 MG MG MG Lipitor 20 Lipitor 20 No 1{table Lipitor 20 MG MG t} MG Carvedilol Carvedilol No Carvedilol 25 MG 25 MG 25 MG Veltassa Veltassa No 1{packe QD Veltassa 8.4 GM 8.4 GM t_with_ 8.4 GM food} Furosemide Furosemide No QD Furosemide 20 mg 20 mg 20 mg amLODIPine amLODIPine No 1{table QD amLODIPine Besylate 10 Besylate 10 t} Besylate MG MG 10 MG hydrALAZINE hydrALAZINE No 1{table TID hydrALAZIN HCl 100 MG HCl 100 MG t_with_ E HCl 100 food} MG OneTouch OneTouch No OneTouch Ultra Test Ultra Test Ultra Test - - - Aspirin Aspirin No 1{table QD Aspirin Adult Low Adult Low t} Adult Low Dose 81 MG Dose 81 MG Dose 81 MG Metoprolol Metoprolol No 1{table BID Metoprolol Tartrate 50 Tartrate 50 t} Tartrate MG MG 50 MG Doxazosin Doxazosin No QD Doxazosin Mesylate 2 Mesylate 2 Mesylate 2 MG MG MG Lipitor 20 Lipitor 20 No 1{table Lipitor 20 MG MG t} MG Carvedilol Carvedilol No Carvedilol 25 MG 25 MG 25 MG Veltassa Veltassa No 1{packe QD Veltassa 8.4 GM 8.4 GM t_with_ 8.4 GM food} Furosemide Furosemide No QD Furosemide 20 mg 20 mg 20 mg amLODIPine amLODIPine No 1{table QD amLODIPine Besylate 10 Besylate 10 t} Besylate MG MG 10 MG hydrALAZINE hydrALAZINE No 1{table TID hydrALAZIN HCl 100 MG HCl 100 MG t_with_ E HCl 100 food} MG OneTouch OneTouch No OneTouch Ultra Test Ultra Test Ultra Test - - - Aspirin Aspirin No 1{table QD Aspirin Adult Low Adult Low t} Adult Low Dose 81 MG Dose 81 MG Dose 81 MG Metoprolol Metoprolol No 1{table BID Metoprolol Tartrate 50 Tartrate 50 t} Tartrate MG MG 50 MG Doxazosin Doxazosin No QD Doxazosin Mesylate 2 Mesylate 2 Mesylate 2 MG MG MG Lipitor 20 Lipitor 20 No 1{table Lipitor 20 MG MG t} MG Carvedilol Carvedilol No Carvedilol 25 MG 25 MG 25 MG Veltassa Veltassa No 1{packe QD [place]eltassa 8.4 GM 8.4 GM t_with_ 8.4 GM food} doxazosin 2 doxazosin 2 No doxazosin [place] mg tablet mg tablet 2 mg Famil y TAKE 1 TAKE 1 tablet Practic TABLET BY TABLET BY TAKE 1 e MOUTH EVERY MOUTH EVERY TABLET BY DAY DAY MOUTH EVERY DAY furosemide furosemide No furosemide [place] 40 mg 40 mg 40 mg Family tablet TAKE tablet TAKE tablet Practic 1 TABLET BY 1 TABLET BY TAKE 1 e MOUTH EVERY MOUTH EVERY TABLET BY DAY DAY MOUTH EVERY DAY hydralazine hydralazine No hydralazin [place] 100 mg 100 mg e 100 mg Family tablet TAKE tablet TAKE tablet Practic 1 TABLET BY 1 TABLET BY TAKE 1 e MOUTH THREE MOUTH THREE TABLET BY TIMES A DAY TIMES A DAY MOUTH THREE TIMES A DAY Levemir Levemir No 50unit( Q1D Levemir Damon princess FlexTouch FlexTouch s) FlexTouch Family U-100 U-100 U-100 Practic Insulin 100 Insulin 100 Insulin e unit/mL (3 unit/mL (3 100 mL) mL) unit/mL (3 subcutaneou subcutaneou mL) s pen s pen subcutaneo Inject 50 Inject 50 us pen units every units every Inject 50 day by day by units subcutaneou subcutaneou every day s route. s route. by subcutaneo us route. minocycline minocycline No minocyclin [facility] 100 mg 100 mg e 100 mg Family capsule capsule capsule Practi c e OneTouch OneTouch No OneTouch Damon princess Ultra Blue Ultra Blue Ultra Blue Family Test Strip Test Strip Test Strip Practic e Soni Shafer No 1packet Q1D Soni [facility] 8.4 gram 8.4 gram (s) 8.4 gram Fam sean oral powder oral powder oral P ractic packet Take packet Take powder e 1 packet 1 packet packet every day every day Take 1 by oral by oral packet route. route. every day by oral route. allopurinol allopurinol No allopurino [facility] 100 mg 100 mg l 100 mg Family tablet TAKE tablet TAKE tablet Practic 1 TABLET BY 1 TABLET BY TAKE 1 e MOUTH EVERY MOUTH EVERY TABLET BY DAY DAY MOUTH EVERY DAY aspirin 81 aspirin 81 No 1 Q1D aspirin 81 [place] mg mg mg Family tablet,rubia tablet,rubia tablet,del Practic yed release yed release ayed e Take 1 Take 1 release tablet tablet Take 1 every day every day tablet by oral by oral every day route. route. by oral route. atorvastati atorvastati No atorvastat [facility] n 20 mg n 20 mg in 20 mg Famil y tablet tablet tablet Practic e carvedilol carvedilol No carvedilol [facility] 25 mg 25 mg 25 mg Family tablet TAKE tablet TAKE tablet Practic 1 TABLET BY 1 TABLET BY TAKE 1 e MOUTH TWICE MOUTH TWICE TABLET BY A DAY A DAY MOUTH TWICE A DAY Immunizations Ordered Immunization Filled Immunization Date Status Commen ts Source Name Name pneumococcal 2014-09-20 Completed [facility] 23-valent vaccine 16:05:00 [facility] pneumococcal 2014-09-20 Completed [facility] 23-valent vaccine 16:05:00 [facility] Vital Signs Vital Name Observation Time Observation Value Comments Source height 2021-02-02 15:00:00 73.00 [in_i] [facility] weight 2021-02-02 15:00:00 201.6 [lb_av] [facility] temperature 2021-02-02 15:00:00 97.6 [degF] [facility] bmi 2021-02-02 15:00:00 26.60 [facility]/m2 [facility] oximetry 2021-02-02 15:00:00 99 % [facility] blood pressure 2021-02-02 15:00:00 160 mm[Hg] [facility] systolic [facility] blood pressure 2021-02-02 15:00:00 78 mm[Hg] [facility] diastolic [facility] BP Systolic 2020-09-15 00:00:00 140 mm[Hg] [facility] Body Weight 2020-09-15 00:00:00 205 [lb_av] [facility] BP Diastolic 2020-09-15 00:00:00 75 mm[Hg] [facility] Height 2020-09-15 00:00:00 75 [in_i] [facility] BMI (Body Mass Index) 2020-09-15 00:00:00 25.6 kg/m2 [facility] Height 2020-02-02 00:00:00 75 [in_i] [facility] BMI (Body Mass Index) 2020-02-02 00:00:00 26.2 kg/m2 [facility] Body Weight 2020-02-02 00:00:00 210 [lb_av] [facility] Systolic (mm Hg) 2017-02-21 18:07:00 Jed rial [place] Diastolic (mm Hg) 2017-02-21 18:07:00 Mem orial [place] Heart Rate 2017-02-21 18:07:00 [facility] Respitory Rate 2017-02-21 18:07:00 Mem[facility] al [place] Temperature Oral (F) 2017-02-21 18:07:00 98.2 F [facility] [place] Systolic (mm Hg) 2017-02-21 13:15:00 Jed rial [place] Diastolic (mm Hg) 2017-02-21 13:15:00 Mem orial [place] Respitory Rate 2017-02-21 13:15:00 [facility] [place] Heart Rate 2017-02-21 13:15:00 [facility] [place] Systolic (mm Hg) 2017-02-21 05:53:00 Jed rial [place] Diastolic (mm Hg) 2017-02-21 05:53:00 Mem orial [place] Respitory Rate 2017-02-21 05:53:00 [facility] [place] Heart Rate 2017-02-21 05:53:00 [facility] [place] Temperature Oral (F) 2017-02-21 05:53:00 98.1 F [facility] Temperature Oral (F) 2017-02-21 03:21:00 98.4 F [facility] Height 2017-02-19 18:50:00 190.5 cm [facility] Weight 2017-02-19 18:50:00 [facility] BMI Calculated 2017-02-19 18:50:00 [facility] [place] Weight 2017-02-19 15:12:00 [facility] [place] BMI Calculated 2017-02-19 15:12:00 [facility] [place] Height 2017-02-19 15:12:00 190.5 cm [facility] [place] Systolic (mm Hg) 2014-11-09 16:50:00 Jed rial [place] Diastolic (mm Hg) 2014-11-09 16:50:00 Mem orial [place] Respitory Rate 2014-11-09 16:50:00 [facility] [place] Temperature Oral (F) 2014-11-09 16:50:00 98.1 F [facility] Heart Rate 2014-11-09 16:50:00 [facility] Systolic (mm Hg) 2014-11-09 13:40:00 Jed rial [place] Diastolic (mm Hg) 2014-11-09 13:40:00 Mem orial [place] Heart Rate 2014-11-09 13:40:00 [facility] [place] Temperature Oral (F) 2014-11-09 13:40:00 98.3 F [facility] [place] Respitory Rate 2014-11-09 13:40:00 [facility] [place] Temperature Oral (F) 2014-11-09 10:46:00 98.1 F [facility] Heart Rate 2014-11-09 10:46:00 [facility] Systolic (mm Hg) 2014-11-09 10:46:00 Jed rial [place] Diastolic (mm Hg) 2014-11-09 10:46:00 Mem [facility] [place] Respitory Rate 2014-11-09 10:46:00 [facility] [place] Weight 2014-11-08 15:17:00 [facility] [place] BMI Calculated 2014-10-29 08:43:00 [facility] [place] Weight 2014-10-29 08:43:00 [facility] Height 2014-10-29 08:43:00 190.5 cm [facility] [place] Weight 2014-10-28 17:36:00 [facility] BMI Calculated 2014-10-28 17:36:00 [facility] [place] Height 2014-10-28 17:36:00 190.5 cm [facility] [place] Heart Rate 2014-10-19 22:27:00 [facility] [place] Respitory Rate 2014-10-19 22:27:00 [facility] [place] Systolic (mm Hg) 2014-10-19 22:27:00 Jed rial [place] Diastolic (mm Hg) 2014-10-19 22:27:00 Mem [facility] [place] Temperature Oral (F) 2014-10-19 22:27:00 99.4 F [facility] Temperature Oral (F) 2014-10-19 18:25:00 97.8 F [facility] Systolic (mm Hg) 2014-10-19 18:25:00 Jed rial [place] Diastolic (mm Hg) 2014-10-19 18:25:00 Mem orial [place] Respitory Rate 2014-10-19 18:25:00 Mem[facility] [place] Heart Rate 2014-10-19 18:25:00 [facility] [place] Temperature Oral (F) 2014-10-19 12:49:00 98.0 F [facility] [place] Respitory Rate 2014-10-19 12:49:00 [facility] [place] Systolic (mm Hg) 2014-10-19 12:49:00 Jed rial [place] Diastolic (mm Hg) 2014-10-19 12:49:00 Mem [facility] [place] Heart Rate 2014-10-19 12:49:00 [facility] Weight 2014-10-14 14:04:00 [facility] [place] Height 2014-10-14 14:04:00 190.5 cm [facility] [place] BMI Calculated 2014-10-13 04:59:00 Mem[facility] [place] Weight 2014-10-13 04:59:00 [facility] Height 2014-10-13 04:59:00 190.5 cm [facility] [place] Heart Rate 2014-10-10 21:09:00 [facility] [place] Systolic (mm Hg) 2014-10-10 21:09:00 Jed rial [place] Diastolic (mm Hg) 2014-10-10 21:09:00 Mem orial [place] Respitory Rate 2014-10-10 21:09:00 Memori al [place] Heart Rate 2014-10-10 18:00:00 [facility] [place] Systolic (mm Hg) 2014-10-10 18:00:00 Jed rial [place] Diastolic (mm Hg) 2014-10-10 18:00:00 Mem orial [place] Respitory Rate 2014-10-10 18:00:00 Mem[facility] [place] Systolic (mm Hg) 2014-10-10 13:49:00 Jed rial [place] Diastolic (mm Hg) 2014-10-10 13:49:00 Mem [facility] [place] Respitory Rate 2014-10-10 13:49:00 [facility] [place] Heart Rate 2014-10-10 13:49:00 [facility] Temperature Oral (F) 2014-10-10 09:00:00 98.0 F [facility] [place] Temperature Oral (F) 2014-10-10 04:45:00 98.2 F [facility] [place] Temperature Oral (F) 2014-10-10 00:33:00 98.8 F [facility] [place] BMI Calculated 2014-09-20 05:24:00 [facility] [place] Weight 2014-09-20 05:24:00 [facility] [place] Height 2014-09-20 05:24:00 190.5 cm [facility] BMI Calculated 2014-09-19 22:47:00 [facility] [place] Weight 2014-09-19 22:47:00 [facility] [place] Height 2014-09-19 22:47:00 190.5 cm [facility] Procedures Procedure Date / Time Performed Performing Clinician [facility] e Fusion of lumbar spine [facility] Knee [facility] replacement<sup>1</sup> Encounters Start End Encounter Admission Attending Care Care Encounter Source Date/Time Date/Time Type Type Clinicians Facility Department ID 2021-07-11 Outpatient Radha Flaherty [facility] [id number] Common 14:25:12 [id number] [facility] 2021-07-11 Outpatient Flaherty, Na STLMLC STLMLC [id number] Common 14:24:27 [id number] [facility] 2021-07-11 Outpatient Flaherty, Na STLMLC STLMLC [id number] Common 12:46:08 [id number] [facility] 2021-07-11 Outpatient Flaherty, Na STLMLC STLMLC [id number] Common 12:45:26 [id number] [facility] 2021-07-11 Outpatient Flaherty, Na STLMLC STLMLC [id number] Common 12:15:11 [id number] [facility] 2021-07-11 Outpatient Millender, STLMLC STLMLC [id number] Common 11:17:31 Macy 61502 [facility] 2021-07-11 Outpatient Millender, STLMLC STLMLC [id number] Common 10:59:54 Macy 52870 [facility] 2021-07-11 Outpatient Millender, STLMLC STLMLC [id number] Common 10:59:44 Macy 11077 [facility] 2021-12-12 2021-12-12 (TEL) STLMLC STLMLC [id number] Co mmon 00:00:00 00:00:00 [facility] 2021-07-25 2021-07-25 (TEL) STLMLC STLMLC [id number] Co mmon 00:00:00 00:00:00 [facility] 2021-02-02 2021-02-02 SUB ANNUAL STLMLC STLMLC [id number] Common 00:00:00 00:00:00 MCR [facility] VISIT [facility] 2020-11-22 2020-11-22 Outpatient Miller_S_AH VFP VFP [id number] [place] 12:50:00 12:50:00 [id number] Family Practic e 2020-09-29 2020-09-29 Outpatient Shantel-Vishunayo VFP VFP [id number] [place] 07:52:00 07:52:00 _A_AH [id number] Family Practic e 2020-09-20 2020-09-20 Outpatient Shantel-Mbayo VFP VFP [id number] [facility] 09:30:00 09:30:00 _A_AH [id number] Family Practic e 2020-09-15 2020-09-15 [place] VFP [place] - [id number] V illage 00:00:00 00:00:00 ShantelIglesia [facility] sean grant, DOMESTIC LAUNDRY WORKER: Medical - Practi c [address] _[email or web address]_ e [place] [address], [place] [address] , Ph. 2020-09-12 2020-09-12 Outpatient STLC [facility] [id number] Common 00:00:00 00:00:00 [facility] 2020-04-15 2020-04-15 Outpatient Shantel-Mbayo VFP VFP [id number] [facility] 12:19:00 12:19:00 _A_AH [id number] Family Practic e 2020-04-05 2020-04-05 Outpatient Shantel-Mbayo VFP VFP [id number] [facility] 09:22:00 09:22:00 _A_AH [id number] Family Practic e 2020-04-04 2020-04-04 Outpatient Shantel-Mbayo VFP VFP [id number] [facility] 09:30:00 09:30:00 _A_AH [id number] Family Practic e 2020-03-29 2020-03-29 [place] VFP [place] - [id number] V illage 00:00:00 00:00:00 ShantelJackie [facility] sean grant, DOMESTIC LAUNDRY WORKER: Medical - Practi c [address] [email or web address]@H_ e [facility], [place] [address], [place] [address] , Ph. 2020-02-22 2020-02-22 Outpatient Shantel-Mbayo VFP VFP [id number] [facility] 12:22:00 12:22:00 _A_AH [id number] Family Practic e 2020-02-07 2020-02-07 Outpatient Shantel-Mbayo VFP VFP [id number] [facility] 10:06:00 10:06:00 _A_AH [id number] Family Practic e 2020-02-02 2020-02-02 [place] VFP [place] - [id number] V illage 00:00:00 00:00:00 Shantel-Mbay [place] [facility] sean grant DOMESTIC LAUNDRY WORKER: Medical - Pracstephen green [phone] [email or web address]_ e [facility], [address], [place] [address] , Ph. 2019-09-27 2019-09-27 [facility] [id number] Common 14:51:00 14:51:00 [facility] [address] [facility] 2019-09-27 2019-09-27 [facility] [id number] Common 11:30:00 11:30:00 [facility] [address] [facility] 2019-08-04 2019-08-04 Outpatient Shantel-Mbayo VFP VFP [id number] [place] 07:27:00 07:27:00 _A_AH [id number] Family Practic e 2019-08-04 2019-08-04 Outpatient Shantel-Mbayo VFP VFP [id number] [place] 07:27:00 07:27:00 _A_AH [id number] Family Practic e 2019-08-04 2019-08-04 Outpatient Shantel-Mbayo VFP VFP [id number] [place] 07:27:00 07:27:00 _A_AH [id number] Family Practic e 2019-06-28 2019-06-28 [facility] [id number] Common 15:48:00 15:48:00 [facility] [address] [facility] 2019-06-28 2019-06-28 [facility] [id number] Common 08:30:00 08:30:00 [facility] [address] [facility] 2019-01-19 2019-01-19 [facility] [id number] Common 08:04:00 08:04:00 [facility] [address] [facility] 2018-12-28 2018-12-28 [facility] [id number] Common 15:18:00 15:18:[address] [facility] 2018-12-28 2018-12-28 Out[facility] [id number] Common 10:40:00 10:40:[address] [facility] 2018-11-24 2018-11-24 Out[facility] [id number] Common 11:16:00 11:16:[address] [facility] 2018-07-21 2018-07-21 [facility] [id number] Common 10:00:00 10:00:[address] [facility] 2018-02-19 2018-02-19 Out[facility] [id number] Common 14:59:00 14:59:[address] [facility] 2018-01-14 2018-01-14 [facility] [id number] Common 22:24:00 22:24:[address] [facility] 2018-01-14 2018-01-14 [facility] [id number] Common 14:00:00 14:00:[address] [facility] 2017-09-29 2017-09-29 [facility] [id number] Common 09:00:00 09:00:[address] [facility] 2017-02-19 2017-02-22 Inpatient nullFlavo [facility] [id number] [facility] 15:07:00 01:18:[address] 2017-02-19 2017-02-22 Inpatient nullFlavo [facility] [id number] Memoria 15:07:00 01:18:00 nate Oconnor [address] [place] [address] 2017-02-19 2017-02-21 Outpatient Austyn [facility] [id number] 10:07:00 20:18:00 Fernando Marrero 2014-10-28 2014-11-10 Inpatient nullFlavo [facility] [id number] Mem[facility] 17:32:00 00:10:00 [facility] 2014-10-28 2014-11-10 Inpatient nullFlavo [facility] [id number] Memoria 17:32:00 00:10:00 [facility] 2014-10-28 2014-11-09 Outpatient Kg, [id number] 12:32:00 19:10:00 [place] [id number] 2014-10-19 Inpatient nullFlavo [facility] [id number] Memoria 04:59:00 23:50:[address] 2014-10-13 2014-10-19 [facility]patient [facility] [id number] Memoria 04:59:00 23:50:[address] 2014-10-12 2014-10-19 Outpatient Michael Olguin [id number] 23:59:00 18:50:00 Tanvir. [id number] 2014-10-11 Inpatient [facility] [id number] Memoria 22:45:00 00:30:[address] 2014-09-19 2014-10-11 Inpatient [facility] [id number] Memoria 22:45:00 00:30:[address] 2014-09-19 2014-10-10 Outpatient Kg, [id number] 17:45:00 19:30:00 [place] [id number] 01 Results Test Description Test Time Test Comments Results Result Comments Source CHEM PANEL 2017-02-21 08:20:00 Test Item Value Reference Range Interpretation Comme nts Phosphorus (test code = Phosphorus) 2.7 2.5-4.5 [facility] [id number] 08:20:00 Test Item Value Reference Range Interpretation Comments Magnesium Lvl (test code = Magnesium 2.2 1.8-2.4 Lvl) [id number] 08:20:00 Test Item Value Reference Range Interpretation Comments AGAP (test code = AGAP) 13.1 10.0-20.0 [facility]jqqzncAPKBXNSMYEOG9412-22-10 08:20:00 Test Item Value Reference Range Interpretation Comments eGFR (test code = eGFR) 37 [facility]zlebhmRIZAZCNUHNKE8369-51-57 08:20:00 Test Item Value Reference Range Interpretation Comments Glucose Lvl (test code = Glucose Lvl) 172 70-99 [facility]XbpvvboGXRMRVUGOYQO3771-34-44 08:20:00 Test Item Value Reference Range Interpretation Comments Chloride Lvl (test code = Chloride Lvl) 110 95-109 [facility]jjnrwqJLWVGOIZHTTI6671-84-21 08:20:00 Test Item Value Reference Range Interpretation Comments CO2 (test code = CO2) 22 24-32 [facility]anwlezJQJNJLLYWTOO0303-12-46 08:20:00 Test Item Value Reference Range Interpretation Comments Calcium Lvl (test code = Calcium Lvl) 8.7 8.5-10.5 [facility]CgpqgqsQBGQZSNHTCIB0086-61-79 08:20:00 Test Item Value Reference Range Interpretation Comments Potassium Lvl (test code = Potassium 4.1 3.5-5.1 Lvl) [facility]QsqsyvdIHXMWATOIHUF7732-31-97 08:20:00 Test Item Value Reference Range Interpretation Comments BUN (test code = BUN) 28 7-22 [facility]TtjowaoWDSKALJVBGOO6619-71-75 08:20:00 Test Item Value Reference Range Interpretation Comments Creatinine Lvl (test code = Creatinine 1.87 0.50-1.40 Lvl) [facility]EazshwvGCHVDKBJUXEO2984-59-37 08:20:00 Test Item Value Reference Range Interpretation Comments Sodium Lvl (test code = Sodium Lvl) 141 135-145 [facility][id number] 08:20:00 Test Item Value Reference Range Interpretation Comments Eosinophils # (test code 0.1 See_Comment [A utomated message] The = Eosinophils #) system whic h generated this result tra nsmitted reference range : <=0.5. The reference r tanner was not used to int erpret this result as normal/abnormal . [facility]bergXazbdgyNOWXARXGHR5240-08-44 08:20:00 Test Item Value Reference Range Interpretation Comments Monocytes # (test code 0.9 See_Comment [Aut omated message] The = Monocytes #) system which generated this result tra nsmitted reference range : <=0.8. The reference r tanner was not used to int erpret this result as normal/abnormal . [facility]XzoqaobSCMMAQBEUL2616-77-28 08:20:00 Test Item Value Reference Range Interpretation Comments Segs-Bands # (test code = Segs-Bands #) 7.3 1.5-8.1 [facility]bergA[id number] 08:20:00 Test Item Value Reference Range Interpretation Comments Basophils (test code = 0.5 See_Comment [Aut omated message] The Basophils) system which ge nerated this result tra nsmitted reference range : <=1.0. The reference r tanner was not used to int erpret this result as normal/abnormal . [facility]bergAzcgegaLZNZPDAOLP6999-31-80 08:20:00 Test Item Value Reference Range Interpretation Comments Lymphocytes # (test code = Lymphocytes 1.3 1.0-5.5 #) [facility]be[id number] 08:20:00 Test Item Value Reference Range Interpretation Comments Eosinophils (test code = 1.3 See_Comment [A utomated message] The Eosinophils) system which ge nerated this result tra nsmitted reference range : <=4.0. The reference r tanner was not used to int erpret this result as normal/abnormal . [facility]bergBeixyrnTJKQMJOMXB4650-89-63 08:20:00 Test Item Value Reference Range Interpretation Comments Monocytes (test code = Monocytes) 9.5 2.0-12.0 [facility]bergS[id number] 08:20:00 Test Item Value Reference Range Interpretation Comments Lymphocytes (test code = Lymphocytes) 13.7 20.0-40.0 [id number] 08:20:00 Test Item Value Reference Range Interpretation Comments Segs (test code = Segs) 75.0 45.0-75.0 [facility] KlebergZthtmlmFQVFLEREWI8933-81-76 08:20:00 Test Item Value Reference Range Interpretation Comments Platelet (test code = Platelet) 237 133-450 [facility]ftzmFZZ[facility]EHVUTY[facility]24-42-50 08:20:00 Test Item Value Reference Range Interpretation Comments MPV (test code = MPV) 7.6 7.4-10.4 [facility]bergStvolncHNCBZAPKTN6507-24-34 08:20:00 Test Item Value Reference Range Interpretation Comments RDW (test code = RDW) 13.6 11.5-14.5 [facility] KlebergKebszzhMGSSZJIVTQ7638-40-81 08:20:00 Test Item Value Reference Range Interpretation Comments MCV (test code = MCV) 88.0 80.0-94.0 [facility]awFshpogiERICAEEAUQ7340-64-26 08:20:00 Test Item Value Reference Range Interpretation Comments MCHC (test code = MCHC) 34.6 32.0-36.0 [facility]bergPnawtfsZVWJCVHSKO4689-66-07 08:20:00 Test Item Value Reference Range Interpretation Comments MCH (test code = MCH) 30.5 pg 27.0-31.0 [facility]bergZmmopcyLAGSVFCFWB8354-43-97 08:20:00 Test Item Value Reference Range Interpretation Comments RBC (test code = RBC) 3.54 4.70-6.10 [facility]PfozjnbHUGFLDPOOP0108-41-27 08:20:00 Test Item Value Reference Range Interpretation Comments Hct (test code = Hct) 31.2 42.0-54.0 [facility]bergQrueushBKAMCRVDBL3712-92-39 08:20:00 Test Item Value Reference Range Interpretation Comments Hgb (test code = Hgb) 10.8 14.0-18.0 [facility]bergMsbywerATZMHSQGZG4085-31-86 08:20:00 Test Item Value Reference Range Interpretation Comments WBC (test code = WBC) 9.8 3.7-10.4 [facility]hamCHEM [id number] 08:20:00 Test Item Value Reference Range Interpretation Comments Phosphorus (test code = Phosphorus) 2.7 2.5-4.5 [facility]hamCHEM [id number] 08:20:00 Test Item Value Reference Range Interpretation Comments Magnesium Lvl (test code = Magnesium 2.2 1.8-2.4 Lvl) [facility] LakeLbhwfrqITXRFGVMZTAJ8145-07-89 08:20:00 Test Item Value Reference Range Interpretation Comments AGAP (test code = AGAP) 13.1 10.0-20.0 [facility]UdppwqeIJTAWLYZIPWD6745-29-82 08:20:00 Test Item Value Reference Range Interpretation Comments eGFR (test code = eGFR) 37 [facility] HospitalAfpbtlkMLNRYYAXPFZB3470-82-88 08:20:00 Test Item Value Reference Range Interpretation Comments Glucose Lvl (test code = Glucose Lvl) 172 70-99 [facility] HospitalCebjjgfYTNVFUYLKJGB8735-11-54 08:20:00 Test Item Value Reference Range Interpretation Comments Chloride Lvl (test code = Chloride Lvl) 110 95-109 [facility] HospitalZwqxkrhADCWPRBVDCEQ6439-95-12 08:20:00 Test Item Value Reference Range Interpretation Comments CO2 (test code = CO2) 22 24-32 [facility] HospitalJqwnhljLICACXQVBUVQ4608-43-52 08:20:00 Test Item Value Reference Range Interpretation Comments Calcium Lvl (test code = Calcium Lvl) 8.7 8.5-10.5 [facility] HospitalMpkeshoHEFIWQTXAIKY2584-84-10 08:20:00 Test Item Value Reference Range Interpretation Comments Potassium Lvl (test code = Potassium 4.1 3.5-5.1 Lvl) [facility] HospitalAgpnfsiGXTAXIDTVEYA7868-31-45 08:20:00 Test Item Value Reference Range Interpretation Comments BUN (test code = BUN) 28 7-22 [facility] HospitalQxxecojYDCSKVZNUTCO5203-86-56 08:20:00 Test Item Value Reference Range Interpretation Comments Creatinine Lvl (test code = Creatinine 1.87 0.50-1.40 Lvl) [facility] HospitalDcotyrtYYAVPWPICLCO3520-55-99 08:20:00 Test Item Value Reference Range Interpretation Comments Sodium Lvl (test code = Sodium Lvl) 141 135-145 [facility]bergXqmmdfpTDYGUWWJLT8989-64-23 08:20:00 Test Item Value Reference Range Interpretation Comments Eosinophils # (test code 0.1 See_Comment [A utomated message] The = Eosinophils #) system whic h generated this result tra nsmitted reference range : <=0.5. The reference r tanner was not used to int erpret this result as normal/abnormal . [facility]bergPiyrsmxDZGJIXBWUV6469-03-31 08:20:00 Test Item Value Reference Range Interpretation Comments Monocytes # (test code 0.9 See_Comment [Aut omated message] The = Monocytes #) system which generated this result tra nsmitted reference range : <=0.8. The reference r tanner was not used to int erpret this result as normal/abnormal . [facility]bergPkckpcoGAQQQHXZGE4954-68-73 08:20:00 Test Item Value Reference Range Interpretation Comments Segs-Bands # (test code = Segs-Bands #) 7.3 1.5-8.1 [facility]bergFpbvwmeYXPKDVXFXO0013-90-03 08:20:00 Test Item Value Reference Range Interpretation Comments Basophils (test code = 0.5 See_Comment [Aut omated message] The Basophils) system which ge nerated this result tra nsmitted reference range : <=1.0. The reference r tanner was not used to int erpret this result as normal/abnormal . [facility]bergQvzuhsjCEYBKMVUGC3078-63-18 08:20:00 Test Item Value Reference Range Interpretation Comments Lymphocytes # (test code = Lymphocytes 1.3 1.0-5.5 #) [facility]bergJxnamdbPMMFEZMXZY0261-03-88 08:20:00 Test Item Value Reference Range Interpretation Comments Eosinophils (test code = 1.3 See_Comment [A utomated message] The Eosinophils) system which ge nerated this result tra nsmitted reference range : <=4.0. The reference r tanner was not used to int erpret this result as normal/abnormal . [facility]bergQnptbfcPPYRTICHCT3252-63-41 08:20:00 Test Item Value Reference Range Interpretation Comments Monocytes (test code = Monocytes) 9.5 2.0-12.0 [facility]bergDbrghigTVTILQPSHE5214-29-46 08:20:00 Test Item Value Reference Range Interpretation Comments Lymphocytes (test code = Lymphocytes) 13.7 20.0-40.0 [facility]bergTaavwqcGCZMYTLLMN4206-17-39 08:20:00 Test Item Value Reference Range Interpretation Comments Segs (test code = Segs) 75.0 45.0-75.0 [facility]bergPwdokjxPWMEZGYXEQ4381-17-02 08:20:00 Test Item Value Reference Range Interpretation Comments Platelet (test code = Platelet) 237 133-450 [facility]bergWxylycwPDFQTDDECB2248-65-34 08:20:00 Test Item Value Reference Range Interpretation Comments MPV (test code = MPV) 7.6 7.4-10.4 [facility]bergEsclooaKXRHZOCIMW2025-01-87 08:20:00 Test Item Value Reference Range Interpretation Comments RDW (test code = RDW) 13.6 11.5-14.5 [facility]hamYuazhmxEOFRWOFRDR2000-93-98 08:20:00 Test Item Value Reference Range Interpretation Comments MCV (test code = MCV) 88.0 80.0-94.0 [facility]hamEyymjksIVTWHOETFX7918-92-91 08:20:00 Test Item Value Reference Range Interpretation Comments MCHC (test code = MCHC) 34.6 32.0-36.0 [facility] BrenhamTawkfdtVPQIPCXXVP5776-15-22 08:20:00 Test Item Value Reference Range Interpretation Comments MCH (test code = MCH) 30.5 pg 27.0-31.0 [facility] BrenhamGbqqxmmWUYTNRXSXT6665-38-40 08:20:00 Test Item Value Reference Range Interpretation Comments RBC (test code = RBC) 3.54 4.70-6.10 [facility] BrenhamAfdorucEOZOXYYJHO8751-32-69 08:20:00 Test Item Value Reference Range Interpretation Comments Hct (test code = Hct) 31.2 42.0-54.0 [facility] LakeOlbdwlyAAXQPESYEQ2648-60-31 08:20:00 Test Item Value Reference Range Interpretation Comments Hgb (test code = Hgb) 10.8 14.0-18.0 [facility] LakeAljqiwoCWUNOHDBTY3790-18-27 08:20:00 Test Item Value Reference Range Interpretation Comments WBC (test code = WBC) 9.8 3.7-10.4 [facility] Phrazit EZPDGZT2982-56-58 06:54:00 Test Item Value Reference Range Interpretation Comments ABO/Rh (test code = ABO/Rh) B POS [facility] [id number] 06:54:00 Test Item Value Reference Range Interpretation Comments Antibody Scrn (test Negative (02/20/17 1:54 code = Antibody Scrn) AM) [facility] Wander [id number] 06:54:00 Test Item Value Reference Range Interpretation Comments Calcium Lvl (test code = Calcium Lvl) 7.9 8.5-10.5 [facility] Wander [id number] 06:54:00 Test Item Value Reference Range Interpretation Comments AGAP (test code = AGAP) 11.2 10.0-20.0 [facility] Wander [id number] 06:54:00 Test Item Value Reference Range Interpretation Comments CO2 (test code = CO2) 23 24-32 [facility]2017-09-07 06:54:00 Test Item Value Reference Range Interpretation Comments eGFR (test code = eGFR) 31 [facility]2017-09-07 06:54:00 Test Item Value Reference Range Interpretation Comments BUN (test code = BUN) 32 7-22 [facility]2017-09-07 06:54:00 Test Item Value Reference Range Interpretation Comments Creatinine Lvl (test code = Creatinine 2.18 0.50-1.40 Lvl) [place] 511917-09-07 06:54:00 Test Item Value Reference Range Interpretation Comments Chloride Lvl (test code = Chloride Lvl) 110 95-109 [facility]2017-09-07 06:54:00 Test Item Value Reference Range Interpretation Comments Sodium Lvl (test code = Sodium Lvl) 140 135-145 [facility]2017-09-07 06:54:00 Test Item Value Reference Range Interpretation Comments Potassium Lvl (test code = Potassium 4.2 3.5-5.1 Lvl) [place] 511917-09-07 06:54:00 Test Item Value Reference Range Interpretation Comments Glucose Lvl (test code = Glucose Lvl) 260 70-99 [facility]bergSrhwbjpUSWEQEKVCJ6001-20-23 06:54:00 Test Item Value Reference Range Interpretation Comments Basophils (test code = 0.5 See_Comment [Aut omated message] The Basophils) system which nerated this result tra nsmitted reference range : <=1.0. The reference r tanner was not used to int erpret this result as normal/abnormal . [facility]bergOxkpqwyGXNQDFZERH4440-85-95 06:54:00 Test Item Value Reference Range Interpretation Comments Eosinophils (test code = 0.5 See_Comment [A utomated message] The Eosinophils) system which ge nerated this result tra nsmitted reference range : <=4.0. The reference r tanner was not used to int erpret this result as normal/abnormal . [facility]bergSyofprmPGASNWMWND7374-56-10 06:54:00 Test Item Value Reference Range Interpretation Comments Segs-Bands # (test code = Segs-Bands #) 6.2 1.5-8.1 [facility] KlebergRwfughrCXUEGKUPYD3717-30-85 06:54:00 Test Item Value Reference Range Interpretation Comments Lymphocytes # (test code = Lymphocytes 1.4 1.0-5.5 #) [facility] KlebergMpexnadWJAVRVNUED1820-47-77 06:54:00 Test Item Value Reference Range Interpretation Comments Segs (test code = Segs) 69.4 45.0-75.0 [facility]bergNygnscvKVOCOGOPQI1194-18-26 06:54:00 Test Item Value Reference Range Interpretation Comments Lymphocytes (test code = Lymphocytes) 16.0 20.0-40.0 [facility] KlebergIvtyrejPSHRDWIXMT6948-51-78 06:54:00 Test Item Value Reference Range Interpretation Comments Monocytes (test code = Monocytes) 13.6 2.0-12.0 [facility] KlebergOtdwivyLWWTSIUAXQ7865-04-44 06:54:00 Test Item Value Reference Range Interpretation Comments Monocytes # (test code 1.2 See_Comment [Aut omated message] The = Monocytes #) system which generated this result tra nsmitted reference range : <=0.8. The reference r tanner was not used to int erpret this result as normal/abnormal . [facility]bergEeksyurHEETUQOWKG9413-28-77 06:54:00 Test Item Value Reference Range Interpretation Comments Hct (test code = Hct) 27.5 42.0-54.0 [facility] KlebergZeguhkgDONDLKOFGX0974-81-81 06:54:00 Test Item Value Reference Range Interpretation Comments MCV (test code = MCV) 87.0 80.0-94.0 [facility] KlebergNhmbjluJOUJKRUMJZ2643-00-79 06:54:00 Test Item Value Reference Range Interpretation Comments Hgb (test code = Hgb) 9.6 14.0-18.0 [facility] KlebergNtbauteGNKBKGFKKL6726-06-19 06:54:00 Test Item Value Reference Range Interpretation Comments RBC (test code = RBC) 3.16 4.70-6.10 [facility]bergZewubdqSSDKZSRRVO7482-32-74 06:54:00 Test Item Value Reference Range Interpretation Comments WBC (test code = WBC) 8.9 3.7-10.4 [facility]bergKgzpijzOZPQKYJMNO1819-91-15 06:54:00 Test Item Value Reference Range Interpretation Comments RDW (test code = RDW) 13.5 11.5-14.5 [facility] KlebergLwntdygAQDDVGWFHX6981-16-69 06:54:00 Test Item Value Reference Range Interpretation Comments MCHC (test code = MCHC) 35.0 32.0-36.0 [facility]hamQwciiiyAFONDTAUNL7556-88-42 06:54:00 Test Item Value Reference Range Interpretation Comments MCH (test code = MCH) 30.5 pg 27.0-31.0 [facility]bergXblqwhkDRBCXWFVEM8279-16-73 06:54:00 Test Item Value Reference Range Interpretation Comments Platelet (test code = Platelet) 214 133-450 [facility]bergEjgeoszIDYYJHJDTU4037-63-99 06:54:00 Test Item Value Reference Range Interpretation Comments MPV (test code = MPV) 7.4 7.4-10.4 [facility] BrenhamJuuzczxBAWFOHVBFE7283-63-21 06:54:00 Test Item Value Reference Range Interpretation Comments INR (test code = INR) 1.16 0.85-1.17 [facility] BrenhamDychsbiIFFUIZRHXR7022-79-94 06:54:00 Test Item Value Reference Range Interpretation Comments PT (test code = PT) 15.0 s 12.0-14.7 [facility]hamDoipftfVXQWXTDFVS5831-93-91 06:54:00 Test Item Value Reference Range Interpretation Comments PTT (test code = PTT) 33.3 s 22.9-35.8 [facility] TWRZNNT7910-31-85 06:54:00 Test Item Value Reference Range Interpretation Comments ABO/Rh (test code = ABO/Rh) B POS [facility] [id number] 06:54:00 Test Item Value Reference Range Interpretation Comments Antibody Scrn (test Negative (02/20/17 1:54 code = Antibody Scrn) AM) [facility] LakeGaudena [id number] 06:54:00 Test Item Value Reference Range Interpretation Comments Calcium Lvl (test code = Calcium Lvl) 7.9 8.5-10.5 [facility] LakeGaudena [id number] 06:54:00 Test Item Value Reference Range Interpretation Comments AGAP (test code = AGAP) 11.2 10.0-20.0 [facility] LakeGaudena [id number] 06:54:00 Test Item Value Reference Range Interpretation Comments CO2 (test code = CO2) 23 24-32 [facility] LakeGaud[facility] [id number] 06:54:00 Test Item Value Reference Range Interpretation Comments eGFR (test code = eGFR) 31 [facility]2017-09-07 06:54:00 Test Item Value Reference Range Interpretation Comments BUN (test code = BUN) 32 7-22 [facility]2017-09-07 06:54:00 Test Item Value Reference Range Interpretation Comments Creatinine Lvl (test code = Creatinine 2.18 0.50-1.40 Lvl) [facility]2017-09-07 06:54:00 Test Item Value Reference Range Interpretation Comments Chloride Lvl (test code = Chloride Lvl) 110 95-109 [facility]2017-09-07 06:54:00 Test Item Value Reference Range Interpretation Comments Sodium Lvl (test code = Sodium Lvl) 140 135-145 [facility]2017-09-07 06:54:00 Test Item Value Reference Range Interpretation Comments Potassium Lvl (test code = Potassium 4.2 3.5-5.1 Lvl) [facility]2017-09-07 06:54:00 Test Item Value Reference Range Interpretation Comments Glucose Lvl (test code = Glucose Lvl) 260 70-99 [facility] KlebergUfwhkdpAALBCEJPML2194-02-31 06:54:00 Test Item Value Reference Range Interpretation Comments Basophils (test code = 0.5 See_Comment [Aut omated message] The Basophils) system which nerated this result tra nsmitted reference range : <=1.0. The reference r tanner was not used to int erpret this result as normal/abnormal . [facility]bergCxgplumYBBUJIHUXY6446-55-97 06:54:00 Test Item Value Reference Range Interpretation Comments Eosinophils (test code = 0.5 See_Comment [A utomated message] The Eosinophils) system which nerated this result tra nsmitted reference range : <=4.0. The reference r tanner was not used to int erpret this result as normal/abnormal . [facility]bergMsjtwvaQGZIFVYWNQ5871-77-81 06:54:00 Test Item Value Reference Range Interpretation Comments Segs-Bands # (test code = Segs-Bands #) 6.2 1.5-8.1 [facility]bergGvbtvdzZTUPGIAOGC4615-37-42 06:54:00 Test Item Value Reference Range Interpretation Comments Lymphocytes # (test code = Lymphocytes 1.4 1.0-5.5 #) [facility]bergWbxuasnGXKZGCEFYE4076-82-06 06:54:00 Test Item Value Reference Range Interpretation Comments Segs (test code = Segs) 69.4 45.0-75.0 [facility] KlebergRbvsyfnKWHMXELEXS4374-37-43 06:54:00 Test Item Value Reference Range Interpretation Comments Lymphocytes (test code = Lymphocytes) 16.0 20.0-40.0 [facility] KlebergErpomviBEMSIUNTFN8032-58-95 06:54:00 Test Item Value Reference Range Interpretation Comments Monocytes (test code = Monocytes) 13.6 2.0-12.0 [facility] KlebergFlusduaGAZSYBCBJK5224-09-47 06:54:00 Test Item Value Reference Range Interpretation Comments Monocytes # (test code 1.2 See_Comment [Aut omated message] The = Monocytes #) system which generated this result tra nsmitted reference range : <=0.8. The reference r tanner was not used to int erpret this result as normal/abnormal . [facility]bergEpmysmpXPWQBNVDLG7426-69-05 06:54:00 Test Item Value Reference Range Interpretation Comments Hct (test code = Hct) 27.5 42.0-54.0 [facility] KlebergUcfqmgvQCBNAYNHCG6673-78-47 06:54:00 Test Item Value Reference Range Interpretation Comments MCV (test code = MCV) 87.0 80.0-94.0 [facility] KlebergUavhblaKZDUUKIFII6667-17-70 06:54:00 Test Item Value Reference Range Interpretation Comments Hgb (test code = Hgb) 9.6 14.0-18.0 [facility] KlebergLnvkezeQROCXNFFXY8962-40-24 06:54:00 Test Item Value Reference Range Interpretation Comments RBC (test code = RBC) 3.16 4.70-6.10 [facility] KlebergZqspwvoJGXYOEUBKK7524-44-10 06:54:00 Test Item Value Reference Range Interpretation Comments WBC (test code = WBC) 8.9 3.7-10.4 [facility] KlebergSitbjtvBHMTWUWFRS8021-08-81 06:54:00 Test Item Value Reference Range Interpretation Comments RDW (test code = RDW) 13.5 11.5-14.5 [facility] KlebergOuhjyvrSJXHXSQHNG9596-22-88 06:54:00 Test Item Value Reference Range Interpretation Comments MCHC (test code = MCHC) 35.0 32.0-36.0 [facility]bergHondkbuABRKAXSNVF3602-62-22 06:54:00 Test Item Value Reference Range Interpretation Comments MCH (test code = MCH) 30.5 pg 27.0-31.0 [facility]awMyybbprMOVUNWOQOQ1850-40-96 06:54:00 Test Item Value Reference Range Interpretation Comments Platelet (test code = Platelet) 214 133-450 [facility]awEenpyfnPHFMRCFMWD7770-69-46 06:54:00 Test Item Value Reference Range Interpretation Comments MPV (test code = MPV) 7.4 7.4-10.4 [facility] KlebergMbwmrsaXPBGMNGQQK1850-91-67 06:54:00 Test Item Value Reference Range Interpretation Comments INR (test code = INR) 1.16 0.85-1.17 [facility] KlebergUlnjgpiOOBRYUTKEZ5950-36-53 06:54:00 Test Item Value Reference Range Interpretation Comments PT (test code = PT) 15.0 s 12.0-14.7 [facility]bergWsnkzftVCCTZYLKYY2298-29-61 06:54:00 Test Item Value Reference Range Interpretation Comments PTT (test code = PTT) 33.3 s 22.9-35.8 [facility]hamDR[facility] [id number] 19:24:00 Test Item Value Reference Range Interpretation Comments U Cocaine Scr (test Negative *NA*(02/19/17 code = U Cocaine Scr) 2:24 PM) [facility]hamDR[facility] [id number] 19:24:00 Test Item Value Reference Range Interpretation Comments U Cannab Scr (test Negative *NA*(02/19/17 code = U Cannab Scr) 2:24 PM) [facility]hamDR[facility] [id number] 19:24:00 Test Item Value Reference Range Interpretation Comments U Phencyc Scr (test Negative *NA*(02/19/17 code = U Phencyc Scr) 2:24 PM) [facility]hamDR[facility] [id number] 19:24:00 Test Item Value Reference Range Interpretation Comments UDS Note (test code = See Note (02/19/17 2:24 UDS Note) PM) [facility]hamDR[facility] [id number] 19:24:00 Test Item Value Reference Range Interpretation Comments U Opiate Scr (test Positive *ABN*(02/19/17 code = U Opiate Scr) 2:24 PM) [facility]hamDR[facility] [id number] 19:24:00 Test Item Value Reference Range Interpretation Comments U Amph Scr (test code Negative *NA*(02/19/17 = U Amph Scr) 2:24 PM) [facility]annDR[facility] [id number] 19:24:00 Test Item Value Reference Range Interpretation Comments U Edda Scr (test code Negative *NA*(02/19/17 = U Edda Scr) 2:24 PM) [facility] [id number] 19:24:00 Test Item Value Reference Range Interpretation Comments U Benzodia Scr (test Negative *NA*(02/19/17 code = U Benzodia Scr) 2:24 PM) [facility]hamUR[facility] AND [id number] 19:24:00 Test Item Value Reference Range Interpretation Comments UA Leuk Est (test Negative (02/19/17 2:24 code = UA Leuk Est) PM) [facility] AND [id number] 19:24:00 Test Item Value Reference Range Interpretation Comments UA Nitrite (test code Negative (02/19/17 2:24 = UA Nitrite) PM) [facility] AND [id number] 19:24:00 Test Item Value Reference Range Interpretation Comments UA Blood (test code = Moderate *ABN*(02/19/17 UA Blood) 2:24 PM) [facility] AND [id number] 19:24:00 Test Item Value Reference Range Interpretation Comments UA Bili (test code = Negative *NA*(02/19/17 UA Bili) 2:24 PM) [facility] AND [id number] 19:24:00 Test Item Value Reference Range Interpretation Comments UA Glucose (test code = UA >=1000 mg/dL Glucose) [facility] AND [id number] 19:24:00 Test Item Value Reference Range Interpretation Comments UA Ketones (test code = UA Ketones) TR [facility] AND [id number] 19:24:00 Test Item Value Reference Range Interpretation Comments UA Urobilinogen (test code = UA <=1.0 mg/dL 0.1-1.0 Urobilinogen) [facility] AND [id number] 19:24:00 Test Item Value Reference Range Interpretation Comments UA Sq Epi (test code = UA Sq Epi) None Seen [facility] AND [id number] 19:24:00 Test Item Value Reference Range Interpretation Comments UA pH (test code = UA pH) 6.0 5.0-8.0 [facility] AND [id number] 19:24:00 Test Item Value Reference Range Interpretation Comments UA Protein (test code = UA Protein) 100 mg/dL [facility] AND [id number] 19:24:00 Test Item Value Reference Range Interpretation Comments UA Spec Grav (test code = UA Spec Grav) 1.034 [facility] AND [id number] 19:24:00 Test Item Value Reference Range Interpretation Comments UA WBC (test code = no gt See_Comment [Automa odilia message] The UA WBC) system which ge nerated this result transmit odilia reference range : <=5. The reference range was not used to interpr et this result as eric l/abnormal. [facility] AND [id number] 19:24:00 Test Item Value Reference Range Interpretation Comments UA RBC (test code = 2 See_Comment [Automa odilia message] The UA RBC) system which ge nerated this result transmit odilia reference range : <=2. The reference range was not used to interpr et this result as eric l/abnormal. [facility] AND [id number] 19:24:00 Test Item Value Reference Range Interpretation Comments UA Color (test code = Light Yellow UA Color) *NA*(02/19/17 2:24 PM) [facility] [id number] 19:24:00 Test Item Value Reference Range Interpretation Comments UA Turbidity (test code = Clear (02/19/17 2:24 UA Turbidity) PM) [facility]annDR[facility] [id number] 19:24:00 Test Item Value Reference Range Interpretation Comments U Cocaine Scr (test Negative *NA*(02/19/17 code = U Cocaine Scr) 2:24 PM) [facility]annDR[facility] [id number] 19:24:00 Test Item Value Reference Range Interpretation Comments U Cannab Scr (test Negative *NA*(02/19/17 code = U Cannab Scr) 2:24 PM) [facility] LakeannDR[facility] [id number] 19:24:00 Test Item Value Reference Range Interpretation Comments U Phencyc Scr (test Negative *NA*(02/19/17 code = U Phencyc Scr) 2:24 PM) [facility] [id number] 19:24:00 Test Item Value Reference Range Interpretation Comments UDS Note (test code = See Note (02/19/17 2:24 UDS Note) PM) [facility] [id number] 19:24:00 Test Item Value Reference Range Interpretation Comments U Opiate Scr (test Positive *ABN*(02/19/17 code = U Opiate Scr) 2:24 PM) [facility] [id number] 19:24:00 Test Item Value Reference Range Interpretation Comments U Amph Scr (test code Negative *NA*(02/19/17 = U Amph Scr) 2:24 PM) [facility] [id number] 19:24:00 Test Item Value Reference Range Interpretation Comments U Edda Scr (test code Negative *NA*(02/19/17 = U Edda Scr) 2:24 PM) [facility] [id number] 19:24:00 Test Item Value Reference Range Interpretation Comments U Benzodia Scr (test Negative *NA*(02/19/17 code = U Benzodia Scr) 2:24 PM) [facility] [id number] 19:24:00 Test Item Value Reference Range Interpretation Comments UA Leuk Est (test Negative (02/19/17 2:24 code = UA Leuk Est) PM) [facility] [id number] 19:24:00 Test Item Value Reference Range Interpretation Comments UA Nitrite (test code Negative (02/19/17 2:24 = UA Nitrite) PM) [facility] [id number] 19:24:00 Test Item Value Reference Range Interpretation Comments UA Blood (test code = Moderate *ABN*(02/19/17 UA Blood) 2:24 PM) [facility] [id number] 19:24:00 Test Item Value Reference Range Interpretation Comments UA Bili (test code = Negative *NA*(02/19/17 UA Bili) 2:24 PM) [facility] [id number] 19:24:00 Test Item Value Reference Range Interpretation Comments UA Glucose (test code = UA >=1000 mg/dL Glucose) [facility] [id number] 19:24:00 Test Item Value Reference Range Interpretation Comments UA Ketones (test code = UA Ketones) TR [facility] [id number] 19:24:00 Test Item Value Reference Range Interpretation Comments UA Urobilinogen (test code = UA <=1.0 mg/dL 0.1-1.0 Urobilinogen) [facility] AND [id number] 19:24:00 Test Item Value Reference Range Interpretation Comments UA Sq Epi (test code = UA Sq Epi) None Seen [facility] [id number] 19:24:00 Test Item Value Reference Range Interpretation Comments UA pH (test code = UA pH) 6.0 5.0-8.0 [facility] [id number] 19:24:00 Test Item Value Reference Range Interpretation Comments UA Protein (test code = UA Protein) 100 mg/dL [facility] [id number] 19:24:00 Test Item Value Reference Range Interpretation Comments UA Spec Grav (test code = UA Spec Grav) 1.034 [facility] AND [id number] 19:24:00 Test Item Value Reference Range Interpretation Comments UA WBC (test code = no gt See_Comment [Automa odilia message] The UA WBC) system which ge nerated this result transmit odilia reference range : <=5. The reference range was not used to interpr et this result as eric l/abnormal. [facility] [id number] 19:24:00 Test Item Value Reference Range Interpretation Comments UA RBC (test code = 2 See_Comment [Automa odilia message] The UA RBC) system which ge nerated this result transmit odilia reference range : <=2. The reference range was not used to interpr et this result as eric l/abnormal. [facility] [id number] 19:24:00 Test Item Value Reference Range Interpretation Comments UA Color (test code = Light Yellow UA Color) *NA*(02/19/17 2:24 PM) [facility] [id number] 19:24:00 Test Item Value Reference Range Interpretation Comments UA Turbidity (test code = Clear (02/19/17 2:24 UA Turbidity) PM) [facility] [id number] 15:24:04 Test Item Value Reference Range Interpretation Comments Lactic Acid Lvl (test code = Lactic 1.0 0.5-2.2 Acid Lvl) [facility]HtlqlxmNRPYGRFWKSON0885-59-85 15:24:04 Test Item Value Reference Range Interpretation Comments AGAP (test code = AGAP) 15.5 10.0-20.0 [facility] Hospi[id number] 15:24:04 Test Item Value Reference Range Interpretation Comments eGFR (test code = eGFR) 17 [facility] HospitalYoorxcnFNBUXQFSODOV0295-69-71 15:24:04 Test Item Value Reference Range Interpretation Comments Glucose Lvl (test code = Glucose Lvl) 364 70-99 [facility] HospitalJvqrgjiQPGQTLIQQQWY0530-82-84 15:24:04 Test Item Value Reference Range Interpretation Comments BUN (test code = BUN) 44 7-22 [facility] HospitalLzxvayqQXDUVIAAFBJR6689-46-58 15:24:04 Test Item Value Reference Range Interpretation Comments Creatinine Lvl (test code = Creatinine 2.60 0.50-1.40 Lvl) [facility] HospitalIvnumkbBNVYEJWCCGVO1938-37-19 15:24:04 Test Item Value Reference Range Interpretation Comments Sodium Lvl (test code = Sodium Lvl) 138 135-145 [facility] HospitalInncuivXWQBZLEATSRW7592-75-92 15:24:04 Test Item Value Reference Range Interpretation Comments Chloride Lvl (test code = Chloride Lvl) 106 95-109 [facility] HospitalJszggjpHLDLXHKXVSIL1535-20-18 15:24:04 Test Item Value Reference Range Interpretation Comments Potassium Lvl (test code = Potassium 5.5 3.5-5.1 Lvl) [facility] HospitalEbauoajKNHWSEBTDQKH8134-22-32 15:24:04 Test Item Value Reference Range Interpretation Comments CO2 (test code = CO2) 22 24-32 [facility] HospitalUvltkcpXRTFVKMGWAEL8138-40-83 15:24:04 Test Item Value Reference Range Interpretation Comments Calcium Lvl (test code = Calcium Lvl) 9.1 8.5-10.5 [facility]bergOqrrdleAJPKSVGBAM3089-07-29 15:24:04 Test Item Value Reference Range Interpretation Comments Lymphocytes (test code = Lymphocytes) 11.9 20.0-40.0 [facility] KlebergDdvdtrvTRVZDAGZZR3501-29-11 15:24:04 Test Item Value Reference Range Interpretation Comments Eosinophils (test code = 1.1 See_Comment [A utomated message] The Eosinophils) system which ge nerated this result tra nsmitted reference range : <=4.0. The reference r tanner was not used to int erpret this result as normal/abnormal . [facility] KlebergKxosdioBGAYTSHKCT6458-35-56 15:24:04 Test Item Value Reference Range Interpretation Comments Monocytes (test code = Monocytes) 5.9 2.0-12.0 [facility] KlebergKhdgxotKETGXCMZTO0772-62-96 15:24:04 Test Item Value Reference Range Interpretation Comments Monocytes # (test code 0.9 See_Comment [Aut omated message] The = Monocytes #) system which generated this result tra nsmitted reference range : <=0.8. The reference r tanner was not used to int erpret this result as normal/abnormal . [facility] KlebergLdfsmrkQOBZRQHFTH2337-55-53 15:24:04 Test Item Value Reference Range Interpretation Comments Lymphocytes # (test code = Lymphocytes 1.9 1.0-5.5 #) [facility] KlebergAxvziqoCKWNNDMJEX6323-32-26 15:24:04 Test Item Value Reference Range Interpretation Comments Segs-Bands # (test code = Segs-Bands #) 12.8 1.5-8.1 [facility] KlebergRzpzmmeGCSDAIGAUD0878-33-37 15:24:04 Test Item Value Reference Range Interpretation Comments Eosinophils # (test code 0.2 See_Comment [A utomated message] The = Eosinophils #) system wh h generated this result tra nsmitted reference range : <=0.5. The reference r tanner was not used to int erpret this result as normal/abnormal . [facility] KlebergNkcdpynAVPSKGFFEP7544-64-45 15:24:04 Test Item Value Reference Range Interpretation Comments Basophils (test code = 0.4 See_Comment [Aut omated message] The Basophils) system which ge nerated this result tra nsmitted reference range : <=1.0. The reference r tanner was not used to int erpret this result as normal/abnormal . [facility] KlebergRgajbemYPXJDOUEUH3726-20-05 15:24:04 Test Item Value Reference Range Interpretation Comments Segs (test code = Segs) 80.7 45.0-75.0 [facility] KlebergXczlrddMZCWDLWQZB1368-36-03 15:24:04 Test Item Value Reference Range Interpretation Comments Basophils # (test code 0.1 See_Comment [Aut omated message] The = Basophils #) system which generated this result tra nsmitted reference range : <=0.2. The reference r tanner was not used to int erpret this result as normal/abnormal . [facility] KlebergJxicopmGRRWDSIIYW0243-45-38 15:24:04 Test Item Value Reference Range Interpretation Comments MCH (test code = MCH) 28.8 pg 27.0-31.0 [facility] KlebergVoexxqoZIYXARHNLL5286-80-16 15:24:04 Test Item Value Reference Range Interpretation Comments MPV (test code = MPV) 7.4 7.4-10.4 [facility] KlebergGwbzgjcADVKKBWTRD7741-48-08 15:24:04 Test Item Value Reference Range Interpretation Comments RDW (test code = RDW) 13.5 11.5-14.5 [facility] KlebergDduxrnhVKKGVBVIEL1232-93-74 15:24:04 Test Item Value Reference Range Interpretation Comments Platelet (test code = Platelet) 290 133-450 [facility] KlebergBrzyadnYMVRAYSMYB6421-21-97 15:24:04 Test Item Value Reference Range Interpretation Comments MCHC (test code = MCHC) 32.7 32.0-36.0 [facility] KlebergGcahvicKKYXHKLLGG0942-63-76 15:24:04 Test Item Value Reference Range Interpretation Comments MCV (test code = MCV) 87.9 80.0-94.0 [facility] KlebergYyffakqMTALEGGHOT9449-17-43 15:24:04 Test Item Value Reference Range Interpretation Comments Hct (test code = Hct) 37.4 42.0-54.0 [facility] KlebergLcocxdfQVWFKCJZVA7689-13-71 15:24:04 Test Item Value Reference Range Interpretation Comments WBC (test code = WBC) 15.9 3.7-10.4 [facility] KlebergQtzuapgSMJLHZSKXR6023-92-12 15:24:04 Test Item Value Reference Range Interpretation Comments RBC (test code = RBC) 4.25 4.70-6.10 [facility] KlebergAvwrcirCLEUCXMPGO1780-27-71 15:24:04 Test Item Value Reference Range Interpretation Comments Hgb (test code = Hgb) 12.2 14.0-18.0 [facility] KlebergTtxqzqbXXETNCMAXH1446-07-78 15:24:04 Test Item Value Reference Range Interpretation Comments Angle Rapid (test code = Angle 81 degrees 64-80 Rapid) [facility] KlebergKekszsaMEGYEVYOAP1293-14-26 15:24:04 Test Item Value Reference Range Interpretation Comments K-time Rapid (test code = K-time 0.8 min 0.6-2.3 Rapid) [facility] KlebergLimztxiOZVRZSVNSH8367-05-96 15:24:04 Test Item Value Reference Range Interpretation Comments R-time Rapid (test code = R-time 0.5 min 0.4-0.7 Rapid) [facility] KlebergWkzgsseUQFRHTOYVG1942-70-35 15:24:04 Test Item Value Reference Range Interpretation Comments Split Point Rapid (test code = Split 0.4 min Point Rapid) [facility] KlebergUnhzypfAJEGBPXWMC7141-12-56 15:24:04 Test Item Value Reference Range Interpretation Comments ACT (TEG) Rapid (test code = ACT (TEG) 97 s 86-118 Rapid) [facility] KlebergLxruihpMSDXVKQHCM8199-05-93 15:24:04 Test Item Value Reference Range Interpretation Comments G-value Rapid (test code = G-value 15.0 5.0-11.6 Rapid) [facility] KlebergOaozwonXZEPNBVMBF8150-48-05 15:24:04 Test Item Value Reference Range Interpretation Comments Max Amplitude Rapid (test code = Max 75 mm 52-71 Amplitude Rapid) [facility] KlebergYbmpozmMMOWHSVLZR9100-21-69 15:24:04 Test Item Value Reference Range Interpretation Comments Estimated % Lysis Rapid 0.2 See_Comment [Au tomated message] The (test code = Estimated syste m which generated % Lysis Rapid) this result t ransmitted reference range : <=7.5. The reference r tanner was not used to int erpret this result as normal/abnormal . [place] [id number] 15:24:04 Test Item Value Reference Range Interpretation Comments Ethanol Lvl (test code = Ethanol <3.0 mg/dL Lvl) [place] [id number] 15:24:04 Test Item Value Reference Range Interpretation Comments Etoh (%) (test code = Etoh (%)) <0.003 % [facility] [place]2017-09-06 15:24:04 Test Item Value Reference Range Interpretation Comments Lactic Acid Lvl (test code = Lactic 1.0 0.5-2.2 Acid Lvl) [facility] HospitalFuscxyyDHANIFUPICSX5555-22-65 15:24:04 Test Item Value Reference Range Interpretation Comments AGAP (test code = AGAP) 15.5 10.0-20.0 [place] [id number] 15:24:04 Test Item Value Reference Range Interpretation Comments eGFR (test code = eGFR) 17 [facility] HospitalFmgwzjyXNCJUBQHQNUN6282-06-14 15:24:04 Test Item Value Reference Range Interpretation Comments Glucose Lvl (test code = Glucose Lvl) 364 70-99 [facility] HospitalAzejqqgCKMXCOLJTUEK9180-34-90 15:24:04 Test Item Value Reference Range Interpretation Comments BUN (test code = BUN) 44 7-22 [facility] HospitalPnlxhlfUTIVCAPOTLEE2462-34-99 15:24:04 Test Item Value Reference Range Interpretation Comments Creatinine Lvl (test code = Creatinine 2.60 0.50-1.40 Lvl) [facility] HospitalIjvpdglUCJEXRKDABEY4050-43-80 15:24:04 Test Item Value Reference Range Interpretation Comments Sodium Lvl (test code = Sodium Lvl) 138 135-145 [facility] HospitalNlniefoPFUVYJDADKXS7509-74-77 15:24:04 Test Item Value Reference Range Interpretation Comments Chloride Lvl (test code = Chloride Lvl) 106 95-109 [facility] HospitalEfrhxzoMSIVFLLUQGKA7672-42-67 15:24:04 Test Item Value Reference Range Interpretation Comments Potassium Lvl (test code = Potassium 5.5 3.5-5.1 Lvl) [facility] HospitalGiwtubeOCWCFIVJDJWL6660-50-97 15:24:04 Test Item Value Reference Range Interpretation Comments CO2 (test code = CO2) 22 24-32 [facility] HospitalMepltykESXLARUGKIOE1514-90-21 15:24:04 Test Item Value Reference Range Interpretation Comments Calcium Lvl (test code = Calcium Lvl) 9.1 8.5-10.5 [facility] KlebergUwpiubgHMIHKKRDAC9294-78-70 15:24:04 Test Item Value Reference Range Interpretation Comments Lymphocytes (test code = Lymphocytes) 11.9 20.0-40.0 [facility] KlebergXfkscbkATUMXKHCBX6467-88-69 15:24:04 Test Item Value Reference Range Interpretation Comments Eosinophils (test code = 1.1 See_Comment [A utomated message] The Eosinophils) system which ge nerated this result tra nsmitted reference range : <=4.0. The reference r tanner was not used to int erpret this result as normal/abnormal . [facility] KlebergVaugdzbCEVAENQKWW8735-56-77 15:24:04 Test Item Value Reference Range Interpretation Comments Monocytes (test code = Monocytes) 5.9 2.0-12.0 [facility] KlebergDoprnwpNRGHJFZWXO1672-82-57 15:24:04 Test Item Value Reference Range Interpretation Comments Monocytes # (test code 0.9 See_Comment [Aut omated message] The = Monocytes #) system which generated this result tra nsmitted reference range : <=0.8. The reference r tanner was not used to int erpret this result as normal/abnormal . [facility] KlebergJdcgtjxNWCNOXPVCB6085-63-00 15:24:04 Test Item Value Reference Range Interpretation Comments Lymphocytes # (test code = Lymphocytes 1.9 1.0-5.5 #) [facility] KlebergRaujtucYOBQWNYUVR5531-82-61 15:24:04 Test Item Value Reference Range Interpretation Comments Segs-Bands # (test code = Segs-Bands #) 12.8 1.5-8.1 [facility] KlebergQmevgygEWIQMCWOYB0912-66-60 15:24:04 Test Item Value Reference Range Interpretation Comments Eosinophils # (test code 0.2 See_Comment [A utomated message] The = Eosinophils #) system whic h generated this result tra nsmitted reference range : <=0.5. The reference r tanner was not used to int erpret this result as normal/abnormal . [facility] KlebergPjkydusIEEYBBFQXC8537-77-37 15:24:04 Test Item Value Reference Range Interpretation Comments Basophils (test code = 0.4 See_Comment [Aut omated message] The Basophils) system which ge nerated this result tra nsmitted reference range : <=1.0. The reference r tanner was not used to int erpret this result as normal/abnormal . [facility] KlebergXpphfvpNHKWIDPTUZ0346-23-45 15:24:04 Test Item Value Reference Range Interpretation Comments Segs (test code = Segs) 80.7 45.0-75.0 [facility] KlebergCqgdfbcSCXSNEYFIZ0032-03-75 15:24:04 Test Item Value Reference Range Interpretation Comments Basophils # (test code 0.1 See_Comment [Aut omated message] The = Basophils #) system which generated this result tra nsmitted reference range : <=0.2. The reference r tanner was not used to int erpret this result as normal/abnormal . [facility] KlebergYlmjkqoNCNEGLADVA0395-26-64 15:24:04 Test Item Value Reference Range Interpretation Comments MCH (test code = MCH) 28.8 pg 27.0-31.0 [facility] KlebergKvhvnmuZRXAKZZTUL2362-36-37 15:24:04 Test Item Value Reference Range Interpretation Comments MPV (test code = MPV) 7.4 7.4-10.4 [facility] KlebergDelrgcsIUKRPAGOUE7940-09-64 15:24:04 Test Item Value Reference Range Interpretation Comments RDW (test code = RDW) 13.5 11.5-14.5 [facility] KlebergQnrvrdiKVWAURYXVE8118-26-80 15:24:04 Test Item Value Reference Range Interpretation Comments Platelet (test code = Platelet) 290 133-450 [facility] KlebergRpghclaYDDROOFIPC4760-35-44 15:24:04 Test Item Value Reference Range Interpretation Comments MCHC (test code = MCHC) 32.7 32.0-36.0 [facility] KlebergOivtypkMAFQQDCJJH2002-04-35 15:24:04 Test Item Value Reference Range Interpretation Comments MCV (test code = MCV) 87.9 80.0-94.0 [facility] KlebergBkmxlpuZKPZJMOIQF6594-24-63 15:24:04 Test Item Value Reference Range Interpretation Comments Hct (test code = Hct) 37.4 42.0-54.0 [facility] KlebergIxghcgeZXPXZAJDWG3480-72-69 15:24:04 Test Item Value Reference Range Interpretation Comments WBC (test code = WBC) 15.9 3.7-10.4 [facility] KlebergOfpgcluMMJFAOTTXK3807-17-38 15:24:04 Test Item Value Reference Range Interpretation Comments RBC (test code = RBC) 4.25 4.70-6.10 [facility] KlebergUwjgbuoOJCPVSYYON1051-68-78 15:24:04 Test Item Value Reference Range Interpretation Comments Hgb (test code = Hgb) 12.2 14.0-18.0 [facility] KlebergBjlknezFGSARGMCJK6773-49-11 15:24:04 Test Item Value Reference Range Interpretation Comments Angle Rapid (test code = Angle 81 degrees 64-80 Rapid) [facility] KlebergVvrbuasPGALSSYGSZ6338-93-26 15:24:04 Test Item Value Reference Range Interpretation Comments K-time Rapid (test code = K-time 0.8 min 0.6-2.3 Rapid) [facility] KlebergQfvwjicWFFFEMEFOI9791-28-06 15:24:04 Test Item Value Reference Range Interpretation Comments R-time Rapid (test code = R-time 0.5 min 0.4-0.7 Rapid) [facility] KlebergOlokhwzDSUTGWMFLS9167-73-82 15:24:04 Test Item Value Reference Range Interpretation Comments Split Point Rapid (test code = Split 0.4 min Point Rapid) [facility] KlebergHazscafAZZPWIFAWI3082-52-34 15:24:04 Test Item Value Reference Range Interpretation Comments ACT (TEG) Rapid (test code = ACT (TEG) 97 s 86-118 Rapid) [facility] KlebergBvqduydSBFNKTWFSR1557-12-03 15:24:04 Test Item Value Reference Range Interpretation Comments G-value Rapid (test code = G-value 15.0 5.0-11.6 Rapid) [facility]bergPmahjexUOMWTYZGEI0200-72-73 15:24:04 Test Item Value Reference Range Interpretation Comments Max Amplitude Rapid (test code = Max 75 mm 52-71 Amplitude Rapid) [facility] KlebergOcqoxenMBGURLQTHK2069-72-18 15:24:04 Test Item Value Reference Range Interpretation Comments Estimated % Lysis Rapid 0.2 See_Comment [Au tomated message] The (test code = Estimated syste m which generated % Lysis Rapid) this result t ransmitted reference range : <=7.5. The reference r tanner was not used to int erpret this result as normal/abnormal . [facility]hamUlntcseUCATWMIMXK7434-55-95 15:24:04 Test Item Value Reference Range Interpretation Comments Ethanol Lvl (test code = Ethanol <3.0 mg/dL Lvl) [facility]hamQsvlyebGEIUBNQJHS7246-88-29 15:24:04 Test Item Value Reference Range Interpretation Comments Etoh (%) (test code = Etoh (%)) <0.003 % [facility] NGIDGOE8934-58-62 15:19:00 Test Item Value Reference Range Interpretation Comments ABO/Rh (test code = ABO/Rh) B POS [facility] ONDUYXQ6941-96-85 15:19:00 Test Item Value Reference Range Interpretation Comments Antibody Scrn (test Negative (02/19/17 10:19 code = Antibody Scrn) AM) [facility] ZAMUUVU4037-57-34 15:19:00 Test Item Value Reference Range Interpretation Comments ABO/Rh (test code = ABO/Rh) B POS [facility] [employer] PUKWZJG0776-05-72 15:19:00 Test Item Value Reference Range Interpretation Comments Antibody Scrn (test Negative (02/19/17 10:19 code = Antibody Scrn) AM) [facility] KlebergQrukcwfMNPIXJPJJQ3811-31-98 05:55:00 Test Item Value Reference Range Interpretation Comments RDW (test code = RDW) 18.4 11.5-14.5 [facility] KlebergEtizasiDEPCYSDTDI8896-12-37 05:55:00 Test Item Value Reference Range Interpretation Comments Platelet (test code = Platelet) 456 133-450 [facility] KlebergYengcxjXLPWABOIXJ4102-37-95 05:55:00 Test Item Value Reference Range Interpretation Comments MPV (test code = MPV) 6.9 7.4-10.4 [facility] KlebergGemycqmFGDJGTJUMU3217-18-64 05:55:00 Test Item Value Reference Range Interpretation Comments Hgb (test code = Hgb) 8.6 14.0-18.0 [facility] KlebergCxdawatFIOVETZUUD1315-41-31 05:55:00 Test Item Value Reference Range Interpretation Comments Hct (test code = Hct) 27.2 42.0-54.0 [facility] KlebergArihsioONECZLYXJL0638-48-44 05:55:00 Test Item Value Reference Range Interpretation Comments MCH (test code = MCH) 27.7 pg 27.0-31.0 [facility] KlebergRborbusYWRZNMNRGV7147-40-51 05:55:00 Test Item Value Reference Range Interpretation Comments MCV (test code = MCV) 87.2 80.0-94.0 [facility] KlebergMrdetutSOHNCICJCJ8281-37-20 05:55:00 Test Item Value Reference Range Interpretation Comments MCHC (test code = MCHC) 31.7 32.0-36.0 [facility] KlebergUjfxtqoOLXSWTOOJM8765-36-42 05:55:00 Test Item Value Reference Range Interpretation Comments RBC (test code = RBC) 3.12 4.70-6.10 [facility] KlebergTrldyyaDKFUWQFDTK2977-47-61 05:55:00 Test Item Value Reference Range Interpretation Comments WBC (test code = WBC) 8.3 3.7-10.4 [facility] KlebergFsfmwpxOCMDFBEVVL1777-21-99 05:55:00 Test Item Value Reference Range Interpretation Comments Segs (test code = Segs) 62.3 45.0-75.0 [facility] KlebergLrhmxrkONGNYCUGFP2164-30-33 05:55:00 Test Item Value Reference Range Interpretation Comments Lymphocytes (test code = Lymphocytes) 23.3 20.0-40.0 [facility] KlebergAyoxoetBAEGXVNUXD9815-11-86 05:55:00 Test Item Value Reference Range Interpretation Comments Monocytes (test code = Monocytes) 10.4 2.0-12.0 [facility] KlebergWabsfqcRCEDAEAVKA2794-36-29 05:55:00 Test Item Value Reference Range Interpretation Comments Eosinophils (test code = 3.3 See_Comment [A utomated message] The Eosinophils) system which ge nerated this result tra nsmitted reference range : <=4.0. The reference r tanner was not used to int erpret this result as normal/abnormal . [facility] KlebergSxdoayoAQGITYRAUR1757-56-48 05:55:00 Test Item Value Reference Range Interpretation Comments Lymphocytes # (test code = Lymphocytes 1.9 1.0-5.5 #) [facility] KlebergPieopbhFBXXFAXADV6410-43-76 05:55:00 Test Item Value Reference Range Interpretation Comments Monocytes # (test code 0.9 See_Comment [Aut omated message] The = Monocytes #) system which generated this result tra nsmitted reference range : <=0.8. The reference r tanner was not used to int erpret this result as normal/abnormal . [facility] KlebergIsxwzozDPCCAIVQAO1594-59-19 05:55:00 Test Item Value Reference Range Interpretation Comments Eosinophils # (test code 0.3 See_Comment [A utomated message] The = Eosinophils #) system whic h generated this result tra nsmitted reference range : <=0.5. The reference r tanner was not used to int erpret this result as normal/abnormal . [facility]bergBnveiruABZQKAZYLK7077-04-14 05:55:00 Test Item Value Reference Range Interpretation Comments Basophils # (test code 0.1 See_Comment [Aut omated message] The = Basophils #) system which generated this result tra nsmitted reference range : <=0.2. The reference r tanner was not used to int erpret this result as normal/abnormal . [facility]bergZxdoeqbWPGTAHWKPO5831-76-11 05:55:00 Test Item Value Reference Range Interpretation Comments Basophils (test code = 0.7 See_Comment [Aut omated message] The Basophils) system which ge nerated this result tra nsmitted reference range : <=1.0. The reference r tanner was not used to int erpret this result as normal/abnormal . [facility]bergBywjlocRYODGVMKQZ9368-73-66 05:55:00 Test Item Value Reference Range Interpretation Comments Segs-Bands # (test code = Segs-Bands #) 5.1 1.5-8.1 [facility]bergDknmtczETMLWYXXQA2699-64-35 05:55:00 Test Item Value Reference Range Interpretation Comments RDW (test code = RDW) 18.4 11.5-14.5 [facility]bergDosqhxoXLRBMKTVRK4647-47-48 05:55:00 Test Item Value Reference Range Interpretation Comments Platelet (test code = Platelet) 456 133-450 [facility]bergHwmarbzALMUUKHYLB8934-67-52 05:55:00 Test Item Value Reference Range Interpretation Comments MPV (test code = MPV) 6.9 7.4-10.4 [facility]bergJygsgviDIPIAGIGYV6754-96-66 05:55:00 Test Item Value Reference Range Interpretation Comments Hgb (test code = Hgb) 8.6 14.0-18.0 [facility]bergYyfbrtcIUWZBGOJFF2753-32-38 05:55:00 Test Item Value Reference Range Interpretation Comments Hct (test code = Hct) 27.2 42.0-54.0 [facility]bergAlflpqoEYZMMVIFQC0897-19-75 05:55:00 Test Item Value Reference Range Interpretation Comments MCH (test code = MCH) 27.7 pg 27.0-31.0 [facility]bergQkvxitsMHPCXQWGUK6321-54-94 05:55:00 Test Item Value Reference Range Interpretation Comments MCV (test code = MCV) 87.2 80.0-94.0 [facility]bergNjnbtfqCCZSZFSNHB8910-54-96 05:55:00 Test Item Value Reference Range Interpretation Comments MCHC (test code = MCHC) 31.7 32.0-36.0 [facility]bergBiawjieJKSDNCLNAL6120-50-70 05:55:00 Test Item Value Reference Range Interpretation Comments RBC (test code = RBC) 3.12 4.70-6.10 [facility]bergOggaulbFFAMMXJUPC8211-57-08 05:55:00 Test Item Value Reference Range Interpretation Comments WBC (test code = WBC) 8.3 3.7-10.4 [facility]bergAkwvkaxUZKVJFWIME9076-60-60 05:55:00 Test Item Value Reference Range Interpretation Comments Segs (test code = Segs) 62.3 45.0-75.0 [facility]bergCdiyzbcIVLLBEVHOB9408-42-16 05:55:00 Test Item Value Reference Range Interpretation Comments Lymphocytes (test code = Lymphocytes) 23.3 20.0-40.0 [facility]bergNckkhfbSVUVNLSJJU8382-49-40 05:55:00 Test Item Value Reference Range Interpretation Comments Monocytes (test code = Monocytes) 10.4 2.0-12.0 [facility]bergYzrgcojJCGAGZYFVO0133-98-94 05:55:00 Test Item Value Reference Range Interpretation Comments Eosinophils (test code = 3.3 See_Comment [A utomated message] The Eosinophils) system which ge nerated this result tra nsmitted reference range : <=4.0. The reference r tanner was not used to int erpret this result as normal/abnormal . [facility]bergShnmwjhJQIMZTOVTZ7318-18-52 05:55:00 Test Item Value Reference Range Interpretation Comments Lymphocytes # (test code = Lymphocytes 1.9 1.0-5.5 #) [facility]bergNlwiouxIGWXJYXCYW5467-82-71 05:55:00 Test Item Value Reference Range Interpretation Comments Monocytes # (test code 0.9 See_Comment [Aut omated message] The = Monocytes #) system which generated this result tra nsmitted reference range : <=0.8. The reference r tanner was not used to int erpret this result as normal/abnormal . [facility]bergKasqufkPBSPFNYQKK6119-03-22 05:55:00 Test Item Value Reference Range Interpretation Comments Eosinophils # (test code 0.3 See_Comment [A utomated message] The = Eosinophils #) system wh h generated this result tra nsmitted reference range : <=0.5. The reference r tanner was not used to int erpret this result as normal/abnormal . [facility]bergDiooljgNSIQTKHKBL7723-58-72 05:55:00 Test Item Value Reference Range Interpretation Comments Basophils # (test code 0.1 See_Comment [Aut omated message] The = Basophils #) system which generated this result tra nsmitted reference range : <=0.2. The reference r tanner was not used to int erpret this result as normal/abnormal . [facility]bergErgmrjgSLAZHIZBIA3962-06-81 05:55:00 Test Item Value Reference Range Interpretation Comments Basophils (test code = 0.7 See_Comment [Aut omated message] The Basophils) system which ge nerated this result tra nsmitted reference range : <=1.0. The reference r tanner was not used to int erpret this result as normal/abnormal . [facility]bergRzslzdxKBYPFULJCK1732-26-52 05:55:00 Test Item Value Reference Range Interpretation Comments Segs-Bands # (test code = Segs-Bands #) 5.1 1.5-8.1 [facility]bergSuelnqiADGJRPQDXZ4064-00-30 05:06:00 Test Item Value Reference Range Interpretation Comments Platelet (test code = Platelet) 504 133-450 [facility]bergQeuyhiuSNRXAJZUJM4690-62-82 05:06:00 Test Item Value Reference Range Interpretation Comments RDW (test code = RDW) 17.7 11.5-14.5 [facility]bergRjkapjeDGCGUSWBNW3610-35-26 05:06:00 Test Item Value Reference Range Interpretation Comments MPV (test code = MPV) 6.9 7.4-10.4 [facility]bergWxohpuvOACCNVXSHC7451-32-93 05:06:00 Test Item Value Reference Range Interpretation Comments MCH (test code = MCH) 27.8 pg 27.0-31.0 [facility]bergOtvvnaxZYIAKBRUOL5353-83-27 05:06:00 Test Item Value Reference Range Interpretation Comments MCV (test code = MCV) 86.9 80.0-94.0 [facility]bergMvojngmBPAWKCUUSX7668-35-85 05:06:00 Test Item Value Reference Range Interpretation Comments MCHC (test code = MCHC) 32.0 32.0-36.0 [facility]bergKflxbrxLCZPSBUUDN0220-53-81 05:06:00 Test Item Value Reference Range Interpretation Comments RBC (test code = RBC) 3.26 4.70-6.10 [facility]bergYtvsnwmCWUOBBKEMB2200-94-94 05:06:00 Test Item Value Reference Range Interpretation Comments Hct (test code = Hct) 28.4 42.0-54.0 [facility]bergCjgftbpESBMMLTTNB8351-90-87 05:06:00 Test Item Value Reference Range Interpretation Comments Hgb (test code = Hgb) 9.1 14.0-18.0 [facility]bergQebvvwlYHSHDIQOQQ5435-68-67 05:06:00 Test Item Value Reference Range Interpretation Comments WBC (test code = WBC) 9.3 3.7-10.4 [facility]bergFuexzmeSGDNCRSZOE4891-02-33 05:06:00 Test Item Value Reference Range Interpretation Comments Monocytes (test code = Monocytes) 10.5 2.0-12.0 [facility]bergEhoeljqUHMAGVIDRD7246-65-97 05:06:00 Test Item Value Reference Range Interpretation Comments Lymphocytes (test code = Lymphocytes) 28.6 20.0-40.0 [facility]bergQgzhkwnTJDENYWYIP3546-92-17 05:06:00 Test Item Value Reference Range Interpretation Comments Basophils # (test code 0.1 See_Comment [Aut omated message] The = Basophils #) system which generated this result tra nsmitted reference range : <=0.2. The reference r tanner was not used to int erpret this result as normal/abnormal . [facility]bergDwlizuoLWSVWCFISU0232-81-62 05:06:00 Test Item Value Reference Range Interpretation Comments Segs-Bands # (test code = Segs-Bands #) 5.3 1.5-8.1 [facility]bergIyifqqgTGQABIZMBU8333-88-86 05:06:00 Test Item Value Reference Range Interpretation Comments Eosinophils (test code = 3.1 See_Comment [A utomated message] The Eosinophils) system which ge nerated this result tra nsmitted reference range : <=4.0. The reference r tanner was not used to int erpret this result as normal/abnormal . [facility]bergRhbvjaoDCDAOHQRZW0556-76-96 05:06:00 Test Item Value Reference Range Interpretation Comments Basophils (test code = 0.5 See_Comment [Aut omated message] The Basophils) system which ge nerated this result tra nsmitted reference range : <=1.0. The reference r tanner was not used to int erpret this result as normal/abnormal . [facility]bergRiqbyjzMTTIOKVBRI0775-53-00 05:06:00 Test Item Value Reference Range Interpretation Comments Segs (test code = Segs) 57.3 45.0-75.0 [facility]bergErldaavCXDTHEPTNB1634-72-41 05:06:00 Test Item Value Reference Range Interpretation Comments Eosinophils # (test code 0.3 See_Comment [A utomated message] The = Eosinophils #) system whic h generated this result tra nsmitted reference range : <=0.5. The reference r tanner was not used to int erpret this result as normal/abnormal . [facility]bergOuwfeyaTLFAEZJGXH3803-20-45 05:06:00 Test Item Value Reference Range Interpretation Comments Lymphocytes # (test code = Lymphocytes 2.7 1.0-5.5 #) [facility]bergDaxugnvGPFWAZKTJJ7754-41-55 05:06:00 Test Item Value Reference Range Interpretation Comments Monocytes # (test code 1.0 See_Comment [Aut omated message] The = Monocytes #) system which generated this result tra nsmitted reference range : <=0.8. The reference r tanner was not used to int erpret this result as normal/abnormal . [facility]bergUrxflakCDYWQPBHMX1372-52-27 05:06:00 Test Item Value Reference Range Interpretation Comments Platelet (test code = Platelet) 504 133-450 [facility]bergCxkujibOPLGZYZNUM8836-28-90 05:06:00 Test Item Value Reference Range Interpretation Comments RDW (test code = RDW) 17.7 11.5-14.5 [facility]bergDstxcqzWPAOLHODIJ8742-32-64 05:06:00 Test Item Value Reference Range Interpretation Comments MPV (test code = MPV) 6.9 7.4-10.4 [facility] KlebergZiowbuqDRRQDJCOVS4685-13-09 05:06:00 Test Item Value Reference Range Interpretation Comments MCH (test code = MCH) 27.8 pg 27.0-31.0 [facility]bergVhdpfecFELGRIRHRE1826-30-29 05:06:00 Test Item Value Reference Range Interpretation Comments MCV (test code = MCV) 86.9 80.0-94.0 [facility]bergCewssmeXDBRBKNEUT4367-27-51 05:06:00 Test Item Value Reference Range Interpretation Comments MCHC (test code = MCHC) 32.0 32.0-36.0 [facility]bergNcobbmcSBNGGCDDVB9253-71-51 05:06:00 Test Item Value Reference Range Interpretation Comments RBC (test code = RBC) 3.26 4.70-6.10 [facility]bergVefmzhkLSHLLJNYTG2530-43-63 05:06:00 Test Item Value Reference Range Interpretation Comments Hct (test code = Hct) 28.4 42.0-54.0 [facility]bergCqrzlsnPGGVSPELZT3539-87-68 05:06:00 Test Item Value Reference Range Interpretation Comments Hgb (test code = Hgb) 9.1 14.0-18.0 [facility]bergDqmxxxzMYLZDDABQA2852-33-77 05:06:00 Test Item Value Reference Range Interpretation Comments WBC (test code = WBC) 9.3 3.7-10.4 [facility]bergEmerpjbFSTLVWKLJZ0121-28-14 05:06:00 Test Item Value Reference Range Interpretation Comments Monocytes (test code = Monocytes) 10.5 2.0-12.0 [facility]bergNdswnziTUYLKKLFBZ6132-07-54 05:06:00 Test Item Value Reference Range Interpretation Comments Lymphocytes (test code = Lymphocytes) 28.6 20.0-40.0 [facility]bergRevuevgCANGEXOTDN9524-17-24 05:06:00 Test Item Value Reference Range Interpretation Comments Basophils # (test code 0.1 See_Comment [Aut omated message] The = Basophils #) system which generated this result tra nsmitted reference range : <=0.2. The reference r tanner was not used to int erpret this result as normal/abnormal . [facility]bergYzilcmxBVYOGBDSWX6851-98-76 05:06:00 Test Item Value Reference Range Interpretation Comments Segs-Bands # (test code = Segs-Bands #) 5.3 1.5-8.1 [facility]bergZkkbdnfCOUCWTZERP4078-36-87 05:06:00 Test Item Value Reference Range Interpretation Comments Eosinophils (test code = 3.1 See_Comment [A utomated message] The Eosinophils) system which ge nerated this result tra nsmitted reference range : <=4.0. The reference r tanner was not used to int erpret this result as normal/abnormal . [facility]bergXbzrdugPXNIRUGUYZ8838-29-86 05:06:00 Test Item Value Reference Range Interpretation Comments Basophils (test code = 0.5 See_Comment [Aut omated message] The Basophils) system which ge nerated this result tra nsmitted reference range : <=1.0. The reference r tanner was not used to int erpret this result as normal/abnormal . [facility]bergJjqnskwGSPOFWEWCX8241-56-50 05:06:00 Test Item Value Reference Range Interpretation Comments Segs (test code = Segs) 57.3 45.0-75.0 [facility]bergRqwhepqUMZHSJNZIL0825-99-93 05:06:00 Test Item Value Reference Range Interpretation Comments Eosinophils # (test code 0.3 See_Comment [A utomated message] The = Eosinophils #) system whic h generated this result tra nsmitted reference range : <=0.5. The reference r tanner was not used to int erpret this result as normal/abnormal . [facility]bergBkstzvgGFSZJOSIGF8514-34-58 05:06:00 Test Item Value Reference Range Interpretation Comments Lymphocytes # (test code = Lymphocytes 2.7 1.0-5.5 #) [facility]bergTwujkkgWPEYZYLVVE9745-94-15 05:06:00 Test Item Value Reference Range Interpretation Comments Monocytes # (test code 1.0 See_Comment [Aut omated message] The = Monocytes #) system which generated this result tra nsmitted reference range : <=0.8. The reference r tanner was not used to int erpret this result as normal/abnormal . [facility]bergQnizcjoZQJTYHRHTL9840-76-15 10:39:00 Test Item Value Reference Range Interpretation Comments Lymphocytes # (test code = Lymphocytes 1.8 1.0-5.5 #) [facility]bergMqoqjouUUDCGOEHHN8974-11-18 10:39:00 Test Item Value Reference Range Interpretation Comments Monocytes # (test code 0.7 See_Comment [Aut omated message] The = Monocytes #) system which generated this result tra nsmitted reference range : <=0.8. The reference r tanner was not used to int erpret this result as normal/abnormal . [facility]bergSnknabaGWCQGDAEDL2862-87-39 10:39:00 Test Item Value Reference Range Interpretation Comments Eosinophils # (test code 0.2 See_Comment [A utomated message] The = Eosinophils #) [facility] generated this result tra nsmitted reference range : <=0.5. The reference r tanner was not used to int erpret this result as normal/abnormal . [facility]bergPaalripBYNSRMICVB5254-30-76 10:39:00 Test Item Value Reference Range Interpretation Comments Eosinophils (test code = 3.4 See_Comment [A utomated message] The Eosinophils) system which ge nerated this result tra nsmitted reference range : <=4.0. The reference r tanner was not used to int erpret this result as normal/abnormal . [facility]bergLpuksorJBDIKUTJPT0065-33-47 10:39:00 Test Item Value Reference Range Interpretation Comments Basophils (test code = 0.7 See_Comment [Aut omated message] The Basophils) system which ge nerated this result tra nsmitted reference range : <=1.0. The reference r tanner was not used to int erpret this result as normal/abnormal . [facility]bergClalaqpGVTQWMKHSP2425-53-42 10:39:00 Test Item Value Reference Range Interpretation Comments Segs-Bands # (test code = Segs-Bands #) 4.1 1.5-8.1 [facility] KlebergXykdkefHGMCNRMYWA3204-98-15 10:39:00 Test Item Value Reference Range Interpretation Comments Lymphocytes (test code = Lymphocytes) 26.1 20.0-40.0 [facility]bergXwjrgqeTSUXNDTBJP2970-54-00 10:39:00 Test Item Value Reference Range Interpretation Comments Segs (test code = Segs) 59.5 45.0-75.0 [facility]bergHdcdcffSNAMSSASYJ1263-19-17 10:39:00 Test Item Value Reference Range Interpretation Comments Monocytes (test code = Monocytes) 10.3 2.0-12.0 [facility]bergJxytpxfQUOACIQBCZ8134-45-83 10:39:00 Test Item Value Reference Range Interpretation Comments RDW (test code = RDW) 17.5 11.5-14.5 [facility] KlebergVkitanoWFADRJQBAE2143-32-04 10:39:00 Test Item Value Reference Range Interpretation Comments Platelet (test code = Platelet) 797 325-791 [facility]bergNmbggdhFHDONKYGYN3309-64-32 10:39:00 Test Item Value Reference Range Interpretation Comments MCH (test code = MCH) 27.4 pg 27.0-31.0 [facility]bergIzlqvdxGTBJMDQWYR8809-55-60 10:39:00 Test Item Value Reference Range Interpretation Comments MCHC (test code = MCHC) 31.7 32.0-36.0 [facility]bergCpoccseOSGIICBTHZ3745-57-12 10:39:00 Test Item Value Reference Range Interpretation Comments MCV (test code = MCV) 86.4 80.0-94.0 [facility]bergLmodnviSOSXAZTIDN2183-73-82 10:39:00 Test Item Value Reference Range Interpretation Comments WBC (test code = WBC) 7.0 3.7-10.4 [facility]bergSkyrihlDKLMRPCOQZ4928-91-76 10:39:00 Test Item Value Reference Range Interpretation Comments RBC (test code = RBC) 3.46 4.70-6.10 [facility]bergYmmbohpZOFLBDJZEK6637-81-12 10:39:00 Test Item Value Reference Range Interpretation Comments Hgb (test code = Hgb) 9.5 14.0-18.0 [facility]bergYvyppquBBVBQGCHMB8744-44-42 10:39:00 Test Item Value Reference Range Interpretation Comments MPV (test code = MPV) 6.6 7.4-10.4 [facility]bergIcsvmugWQHOTVPYUZ4940-15-77 10:39:00 Test Item Value Reference Range Interpretation Comments Hct (test code = Hct) 29.9 42.0-54.0 [facility]bergIrsrsqhXXOTKZSRHP6283-87-34 10:39:00 Test Item Value Reference Range Interpretation Comments Lymphocytes # (test code = Lymphocytes 1.8 1.0-5.5 #) [facility]bergPukglspMEKYCJAMLV8712-69-23 10:39:00 Test Item Value Reference Range Interpretation Comments Monocytes # (test code 0.7 See_Comment [Aut omated message] The = Monocytes #) system which generated this result tra nsmitted reference range : <=0.8. The reference r tanner was not used to int erpret this result as normal/abnormal . [facility]bergDrhxjrbMMECUPHARF4207-51-07 10:39:00 Test Item Value Reference Range Interpretation Comments Eosinophils # (test code 0.2 See_Comment [A utomated message] The = Eosinophils #) system whic h generated this result tra nsmitted reference range : <=0.5. The reference r tanner was not used to int erpret this result as normal/abnormal . [facility]bergMorietzXKIHZMVENX8996-43-04 10:39:00 Test Item Value Reference Range Interpretation Comments Eosinophils (test code = 3.4 See_Comment [A utomated message] The Eosinophils) system which ge nerated this result tra nsmitted reference range : <=4.0. The reference r tanner was not used to int erpret this result as normal/abnormal . [facility]bergWrqgtgtOXSPXABWOU5605-66-67 10:39:00 Test Item Value Reference Range Interpretation Comments Basophils (test code = 0.7 See_Comment [Aut omated message] The Basophils) system which ge nerated this result tra nsmitted reference range : <=1.0. The reference r tanner was not used to int erpret this result as normal/abnormal . [facility]bergGpexlljIDWUTLYPST1450-66-70 10:39:00 Test Item Value Reference Range Interpretation Comments Segs-Bands # (test code = Segs-Bands #) 4.1 1.5-8.1 [facility]bergKnnitpsXGVJQWADBT6817-59-26 10:39:00 Test Item Value Reference Range Interpretation Comments Lymphocytes (test code = Lymphocytes) 26.1 20.0-40.0 [facility]bergNqamhtmAKTGOFRADR4037-01-67 10:39:00 Test Item Value Reference Range Interpretation Comments Segs (test code = Segs) 59.5 45.0-75.0 [facility]bergJkhssscWIQVSUWPSA3949-92-71 10:39:00 Test Item Value Reference Range Interpretation Comments Monocytes (test code = Monocytes) 10.3 2.0-12.0 [facility]bergYgbghcqWKONNKBKUR3895-50-13 10:39:00 Test Item Value Reference Range Interpretation Comments RDW (test code = RDW) 17.5 11.5-14.5 [facility]bergVnaeuxkLVOCTSLCRQ0922-98-63 10:39:00 Test Item Value Reference Range Interpretation Comments Platelet (test code = Platelet) 106 000-146 [facility] KlebergDliiievZLDDFREPMK3283-68-90 10:39:00 Test Item Value Reference Range Interpretation Comments MCH (test code = MCH) 27.4 pg 27.0-31.0 [facility]bergKhrdxrjRTTHTZRBDS9304-29-15 10:39:00 Test Item Value Reference Range Interpretation Comments MCHC (test code = MCHC) 31.7 32.0-36.0 [facility] KlebergLgbvxitUUDPLEWBDS0124-57-44 10:39:00 Test Item Value Reference Range Interpretation Comments MCV (test code = MCV) 86.4 80.0-94.0 [facility] KlebergFvlsnazGMATJULSRJ2117-50-50 10:39:00 Test Item Value Reference Range Interpretation Comments WBC (test code = WBC) 7.0 3.7-10.4 [facility]bergSrccgctUVQAPLSXSU4250-34-86 10:39:00 Test Item Value Reference Range Interpretation Comments RBC (test code = RBC) 3.46 4.70-6.10 [facility] KlebergRtijdvmUJGIDXPHWA5702-89-79 10:39:00 Test Item Value Reference Range Interpretation Comments Hgb (test code = Hgb) 9.5 14.0-18.0 [facility] KlebergDvfhoeeCFMOTWZYPO8810-62-42 10:39:00 Test Item Value Reference Range Interpretation Comments MPV (test code = MPV) 6.6 7.4-10.4 [facility]bergEifromiQUSJUNPCXK9533-80-83 10:39:00 Test Item Value Reference Range Interpretation Comments Hct (test code = Hct) 29.9 42.0-54.0 [facility]bergUxpbpryHYTELTQAZU5854-89-81 10:08:00 Test Item Value Reference Range Interpretation Comments Basophils # (test code 0.1 See_Comment [Aut omated message] The = Basophils #) system which generated this result tra nsmitted reference range : <=0.2. The reference r tanner was not used to int erpret this result as normal/abnormal . [facility]bergEafhyuuAPTHBDRUIE3823-58-03 10:08:00 Test Item Value Reference Range Interpretation Comments Basophils # (test code 0.1 See_Comment [Aut omated message] The = Basophils #) system which generated this result tra nsmitted reference range : <=0.2. The reference r tanner was not used to int erpret this result as normal/abnormal . [facility]2015-05-22 10:07:00 Test Item Value Reference Range Interpretation Comments Phosphorus (test code = Phosphorus) 2.6 2.5-4.5 [facility]2015-05-22 10:07:00 Test Item Value Reference Range Interpretation Comments eGFR (test code = eGFR) 108 [facility]2015-05-22 10:07:00 Test Item Value Reference Range Interpretation Comments Glucose Lvl (test code = Glucose Lvl) 97 70-99 [facility]2015-05-22 10:07:00 Test Item Value Reference Range Interpretation Comments Creatinine Lvl (test code = Creatinine 0.6 0.5-1.4 Lvl) [facility]2015-05-22 10:07:00 Test Item Value Reference Range Interpretation Comments BUN (test code = BUN) 10 7-22 [facility]2015-05-22 10:07:00 Test Item Value Reference Range Interpretation Comments Sodium Lvl (test code = Sodium Lvl) 141 135-145 [facility]2015-05-22 10:07:00 Test Item Value Reference Range Interpretation Comments CO2 (test code = CO2) 29 24-32 [facility]2015-05-22 10:07:00 Test Item Value Reference Range Interpretation Comments Potassium Lvl (test code = Potassium 4.2 3.5-5.1 Lvl) [facility]2015-05-22 10:07:00 Test Item Value Reference Range Interpretation Comments Chloride Lvl (test code = Chloride Lvl) 107 95-109 [facility]2015-05-22 10:07:00 Test Item Value Reference Range Interpretation Comments AGAP (test code = AGAP) 9.2 10.0-20.0 [facility]2015-05-22 10:07:00 Test Item Value Reference Range Interpretation Comments Calcium Lvl (test code = Calcium Lvl) 7.8 8.5-10.5 [facility]2015-05-22 10:07:00 Test Item Value Reference Range Interpretation Comments Magnesium Lvl (test code = Magnesium 1.6 1.8-2.4 Lvl) [facility] [id number] 10:07:00 Test Item Value Reference Range Interpretation Comments Ca Norm WB (test code = Ca Norm WB) 1.13 1.05-1.25 [facility] [id number] 10:07:00 Test Item Value Reference Range Interpretation Comments Ca Ion WB (test code = Ca Ion WB) 1.17 1.05-1.25 [facility]2015-05-22 10:07:00 Test Item Value Reference Range Interpretation Comments Phosphorus (test code = Phosphorus) 2.6 2.5-4.5 [facility]2015-05-22 10:07:00 Test Item Value Reference Range Interpretation Comments eGFR (test code = eGFR) 108 [facility]2015-05-22 10:07:00 Test Item Value Reference Range Interpretation Comments Glucose Lvl (test code = Glucose Lvl) 97 70-99 [facility]2015-05-22 10:07:00 Test Item Value Reference Range Interpretation Comments Creatinine Lvl (test code = Creatinine 0.6 0.5-1.4 Lvl) [facility]2015-05-22 10:07:00 Test Item Value Reference Range Interpretation Comments BUN (test code = BUN) 10 - [facility]2015-05-22 10:07:00 Test Item Value Reference Range Interpretation Comments Sodium Lvl (test code = Sodium Lvl) 141 135-145 [facility]2015-05-22 10:07:00 Test Item Value Reference Range Interpretation Comments CO2 (test code = CO2) 29 24-32 [facility]2015-05-22 10:07:00 Test Item Value Reference Range Interpretation Comments Potassium Lvl (test code = Potassium 4.2 3.5-5.1 Lvl) [facility]2015-05-22 10:07:00 Test Item Value Reference Range Interpretation Comments Chloride Lvl (test code = Chloride Lvl) 107 95-109 [facility]2015-05-22 10:07:00 Test Item Value Reference Range Interpretation Comments AGAP (test code = AGAP) 9.2 10.0-20.0 [facility]2015-05-22 10:07:00 Test Item Value Reference Range Interpretation Comments Calcium Lvl (test code = Calcium Lvl) 7.8 8.5-10.5 [facility]2015-05-22 10:07:00 Test Item Value Reference Range Interpretation Comments Magnesium Lvl (test code = Magnesium 1.6 1.8-2.4 Lvl) [facility]2015-05-22 10:07:00 Test Item Value Reference Range Interpretation Comments Ca Norm WB (test code = Ca Norm WB) 1.13 1.05-1.25 [facility]2015-05-22 10:07:00 Test Item Value Reference Range Interpretation Comments Ca Ion WB (test code = Ca Ion WB) 1.17 1.05-1.25 [facility]2015-05-21 10:49:00 Test Item Value Reference Range Interpretation Comments Phosphorus (test code = Phosphorus) 1.9 2.5-4.5 [facility]2015-05-21 10:49:00 Test Item Value Reference Range Interpretation Comments eGFR (test code = eGFR) 101 [facility]2015-05-21 10:49:00 Test Item Value Reference Range Interpretation Comments CO2 (test code = CO2) 25 24-32 [facility]2015-05-21 10:49:00 Test Item Value Reference Range Interpretation Comments Calcium Lvl (test code = Calcium Lvl) 8.2 8.5-10.5 [facility]2015-05-21 10:49:00 Test Item Value Reference Range Interpretation Comments Chloride Lvl (test code = Chloride Lvl) 105 95-109 [facility]2015-05-21 10:49:00 Test Item Value Reference Range Interpretation Comments Potassium Lvl (test code = Potassium 3.8 3.5-5.1 Lvl) [facility]2015-05-21 10:49:00 Test Item Value Reference Range Interpretation Comments Creatinine Lvl (test code = Creatinine 0.7 0.5-1.4 Lvl) [facility]2015-05-21 10:49:00 Test Item Value Reference Range Interpretation Comments Glucose Lvl (test code = Glucose Lvl) 220 70-99 [facility]2015-05-21 10:49:00 Test Item Value Reference Range Interpretation Comments BUN (test code = BUN) 13 7-22 [facility]2015-05-21 10:49:00 Test Item Value Reference Range Interpretation Comments Sodium Lvl (test code = Sodium Lvl) 138 135-145 [facility]2015-05-21 10:49:00 Test Item Value Reference Range Interpretation Comments AGAP (test code = AGAP) 11.8 10.0-20.0 [facility]2015-05-21 10:49:00 Test Item Value Reference Range Interpretation Comments Magnesium Lvl (test code = Magnesium 1.6 1.8-2.4 Lvl) [facility] [id number] 10:49:00 Test Item Value Reference Range Interpretation Comments Ca Ion WB (test code = Ca Ion WB) 1.04 1.05-1.25 [facility] [id number] 10:49:00 Test Item Value Reference Range Interpretation Comments Ca Norm WB (test code = Ca Norm WB) 1.05 1.05-1.25 [facility]2015-05-21 10:49:00 Test Item Value Reference Range Interpretation Comments Phosphorus (test code = Phosphorus) 1.9 2.5-4.5 [facility]2015-05-21 10:49:00 Test Item Value Reference Range Interpretation Comments eGFR (test code = eGFR) 101 [facility]2015-05-21 10:49:00 Test Item Value Reference Range Interpretation Comments CO2 (test code = CO2) 25 24-32 [facility]2015-05-21 10:49:00 Test Item Value Reference Range Interpretation Comments Calcium Lvl (test code = Calcium Lvl) 8.2 8.5-10.5 [facility]2015-05-21 10:49:00 Test Item Value Reference Range Interpretation Comments Chloride Lvl (test code = Chloride Lvl) 105 95-109 [facility]2015-05-21 10:49:00 Test Item Value Reference Range Interpretation Comments Potassium Lvl (test code = Potassium 3.8 3.5-5.1 Lvl) [facility]2015-05-21 10:49:00 Test Item Value Reference Range Interpretation Comments Creatinine Lvl (test code = Creatinine 0.7 0.5-1.4 Lvl) [facility]2015-05-21 10:49:00 Test Item Value Reference Range Interpretation Comments Glucose Lvl (test code = Glucose Lvl) 220 70-99 [facility]2015-05-21 10:49:00 Test Item Value Reference Range Interpretation Comments BUN (test code = BUN) 13 7-22 [facility]2015-05-21 10:49:00 Test Item Value Reference Range Interpretation Comments Sodium Lvl (test code = Sodium Lvl) 138 135-145 [facility]2015-05-21 10:49:00 Test Item Value Reference Range Interpretation Comments AGAP (test code = AGAP) 11.8 10.0-20.0 [facility]2015-05-21 10:49:00 Test Item Value Reference Range Interpretation Comments Magnesium Lvl (test code = Magnesium 1.6 1.8-2.4 Lvl) [facility]2015-05-21 10:49:00 Test Item Value Reference Range Interpretation Comments Ca Ion WB (test code = Ca Ion WB) 1.04 1.05-1.25 [facility]mberWaveM[facility] [id number] 10:49:00 Test Item Value Reference Range Interpretation Comments Ca Norm WB (test code = Ca Norm WB) 1.05 1.05-1.25 [facility] [employer] [id number] 08:12:00 Test Item Value Reference Range Interpretation Comments ABO/Rh (test code = ABO/Rh) B POS [facility] [employer] [id number] 08:12:00 Test Item Value Reference Range Interpretation Comments Antibody Scrn (test Negative (11/02/14 3:12 code = Antibody Scrn) AM) [facility]2015-05-20 08:12:00 Test Item Value Reference Range Interpretation Comments eGFR (test code = eGFR) 101 [facility]2015-05-20 08:12:00 Test Item Value Reference Range Interpretation Comments Glucose Lvl (test code = Glucose Lvl) 106 70-99 [facility]2015-05-20 08:12:00 Test Item Value Reference Range Interpretation Comments BUN (test code = BUN) 12 7-22 [facility]2015-05-20 08:12:00 Test Item Value Reference Range Interpretation Comments Sodium Lvl (test code = Sodium Lvl) 138 135-145 [facility]2015-05-20 08:12:00 Test Item Value Reference Range Interpretation Comments Creatinine Lvl (test code = Creatinine 0.7 0.5-1.4 Lvl) [facility]2015-05-20 08:12:00 Test Item Value Reference Range Interpretation Comments Chloride Lvl (test code = Chloride Lvl) 104 95-109 [facility]2015-05-20 08:12:00 Test Item Value Reference Range Interpretation Comments Potassium Lvl (test code = Potassium 4.3 3.5-5.1 Lvl) [facility]2015-05-20 08:12:00 Test Item Value Reference Range Interpretation Comments AGAP (test code = AGAP) 12.3 10.0-20.0 [facility]2015-05-20 08:12:00 Test Item Value Reference Range Interpretation Comments CO2 (test code = CO2) 26 24-32 [facility]2015-05-20 08:12:00 Test Item Value Reference Range Interpretation Comments Calcium Lvl (test code = Calcium Lvl) 8.3 8.5-10.5 [facility]2015-05-20 08:12:00 Test Item Value Reference Range Interpretation Comments Phosphorus (test code = Phosphorus) 2.3 2.5-4.5 [facility]2015-05-20 08:12:00 Test Item Value Reference Range Interpretation Comments Magnesium Lvl (test code = Magnesium 1.9 1.8-2.4 Lvl) [facility]PARATHYROID [id number] 08:12:00 Test Item Value Reference Range Interpretation Comments Ca Ion WB (test code = Ca Ion WB) 1.04 1.05-1.25 [facility]hamPARATHYROID [id number] 08:12:00 Test Item Value Reference Range Interpretation Comments Ca Norm WB (test code = Ca Norm WB) 1.07 1.05-1.25 [facility] LakeBloomer[facility] B[facility] [id number] 08:12:00 Test Item Value Reference Range Interpretation Comments ABO/Rh (test code = ABO/Rh) B POS [facility] [employer] [facility] [id number] 08:12:00 Test Item Value Reference Range Interpretation Comments Antibody Scrn (test Negative (11/02/14 3:12 code = Antibody Scrn) AM) [facility]AAH[facility] [id number] 08:12:00 Test Item Value Reference Range Interpretation Comments eGFR (test code = eGFR) 101 [facility] LakeGaud[facility] [id number] 08:12:00 Test Item Value Reference Range Interpretation Comments Glucose Lvl (test code = Glucose Lvl) 106 70-99 [facility] [id number] 08:12:00 Test Item Value Reference Range Interpretation Comments BUN (test code = BUN) 12 7-22 [facility] [id number] 08:12:00 Test Item Value Reference Range Interpretation Comments Sodium Lvl (test code = Sodium Lvl) 138 135-145 [facility] [id number] 08:12:00 Test Item Value Reference Range Interpretation Comments Creatinine Lvl (test code = Creatinine 0.7 0.5-1.4 Lvl) [facility] [id number] 08:12:00 Test Item Value Reference Range Interpretation Comments Chloride Lvl (test code = Chloride Lvl) 104 95-109 [facility] [id number] 08:12:00 Test Item Value Reference Range Interpretation Comments Potassium Lvl (test code = Potassium 4.3 3.5-5.1 Lvl) [facility] [id number] 08:12:00 Test Item Value Reference Range Interpretation Comments AGAP (test code = AGAP) 12.3 10.0-20.0 [facility] [id number] 08:12:00 Test Item Value Reference Range Interpretation Comments CO2 (test code = CO2) 26 24-32 [facility]hamCum[facility] [id number] 08:12:00 Test Item Value Reference Range Interpretation Comments Calcium Lvl (test code = Calcium Lvl) 8.3 8.5-10.5 [facility] [id number] 08:12:00 Test Item Value Reference Range Interpretation Comments Phosphorus (test code = Phosphorus) 2.3 2.5-4.5 [facility]hamC[facility] [id number] 08:12:00 Test Item Value Reference Range Interpretation Comments Magnesium Lvl (test code = Magnesium 1.9 1.8-2.4 Lvl) [facility]hamPARATHYROID [id number] 08:12:00 Test Item Value Reference Range Interpretation Comments Ca Ion WB (test code = Ca Ion WB) 1.04 1.05-1.25 [facility]RO[facility] [id number] 08:12:00 Test Item Value Reference Range Interpretation Comments Ca Norm WB (test code = Ca Norm WB) 1.07 1.05-1.25 [facility] [id number] 06:16:00 Test Item Value Reference Range Interpretation Comments Vanco Tr (test code = Vanco Tr) 16.7 [facility] [id number] 06:16:00 Test Item Value Reference Range Interpretation Comments Vanco Tr TND (test code = Vanco Tr TND) 2AM [facility] [id number] 06:16:00 Test Item Value Reference Range Interpretation Comments Vanco Tr (test code = Vanco Tr) 16.7 [facility] B[id number] 06:16:00 Test Item Value Reference Range Interpretation Comments Vanco Tr TND (test code = Vanco Tr TND) 2AM [facility] [employer] [id number] 10:05:00 Test Item Value Reference Range Interpretation Comments ABO/Rh (test code = ABO/Rh) B POS [facility] [employer] [id number] 10:05:00 Test Item Value Reference Range Interpretation Comments Antibody Scrn (test Negative (10/30/14 5:05 code = Antibody Scrn) AM) [facility] [employer] [id number] 10:05:00 Test Item Value Reference Range Interpretation Comments ABO/Rh (test code = ABO/Rh) B POS [facility] BANK [id number] 10:05:00 Test Item Value Reference Range Interpretation Comments Antibody Scrn (test Negative (10/30/14 5:05 code = Antibody Scrn) AM) [facility] C[id number] 09:52:00 Test Item Value Reference Range Interpretation Comments Vanco Tr TND (test code = Vanco Tr TND) 5 AM [facility] BrenhamJekpvdcWCCJPYYIOA4581-12-20 09:52:00 Test Item Value Reference Range Interpretation Comments Vanco Tr (test code = Vanco Tr) 8.9 [facility] BrenhamHqlstglRPZGKFJXTU1279-12-83 09:52:00 Test Item Value Reference Range Interpretation Comments Vanco Tr TND (test code = Vanco Tr TND) 5 AM [facility] CenterMvdhchwUUZMRCYUHB5166-33-95 09:52:00 Test Item Value Reference Range Interpretation Comments Vanco Tr (test code = Vanco Tr) 8.9 [facility]hamSPECIAL [id number] 09:50:00 Test Item Value Reference Range Interpretation Comments Hgb A1C (test code = Hgb A1C) 5.9 [facility]hamSPECIAL [id number] 09:50:00 Test Item Value Reference Range Interpretation Comments Hgb A1C (test code = Hgb A1C) 5.9 [facility] BrenhamCHEM [id number] 05:42:00 Test Item Value Reference Range Interpretation Comments Lactic Acid Lvl (test code = Lactic 1.1 0.5-2.2 Acid Lvl) [facility] BrenhamWvykhweXHEBYBKLUC0144-24-16 05:42:00 Test Item Value Reference Range Interpretation Comments Rapid TEG Sample Type Citrated Whole Blood (test code = Rapid TEG Sample Type) [facility] [id number] 05:42:00 Test Item Value Reference Range Interpretation Comments Split Point (test code = Split Point) 0.5 min [facility] [id number] 05:42:00 Test Item Value Reference Range Interpretation Comments ACT (TEG) (test code = ACT (TEG)) 113 s 86-118 [facility] BrenhamLhrwjxhFINJASLZQT0537-96-38 05:42:00 Test Item Value Reference Range Interpretation Comments K-time (test code = K-time) 0.8 min 0.6-2.3 [facility]bergXjwvthkYSVWKYABBI9304-47-12 05:42:00 Test Item Value Reference Range Interpretation Comments R-time (test code = R-time) 0.7 min 0.4-0.7 [facility] KlebergZzwqiltICFFKISAVQ6716-08-77 05:42:00 Test Item Value Reference Range Interpretation Comments Max Amp (test code = Max Amp) 77 mm 52-71 [facility] KlebergVefcdwvHOWKHCFZDS0012-79-25 05:42:00 Test Item Value Reference Range Interpretation Comments Angle (test code = Angle) 81 degrees 64-80 [facility] KlebergQvlcfdnZYHXBEHKBU0420-47-26 05:42:00 Test Item Value Reference Range Interpretation Comments Estimated % Lysis (test 0.0 See_Comment [Au tomated message] The code = Estimated % system wh ich generated Lysis) this result tra nsmitted reference range : <=7.5. The reference r tanner was not used to int erpret this result as normal/abnormal . [facility] KlebergDwpkmvyPTGZFRKJGF8537-18-12 05:42:00 Test Item Value Reference Range Interpretation Comments G-value (test code = G-value) 16.6 5.0-11.6 [facility]2015-05-16 05:42:00 Test Item Value Reference Range Interpretation Comments Lactic Acid Lvl (test code = Lactic 1.1 0.5-2.2 Acid Lvl) [facility] KlebergGqusncgUHFBNZZASD0174-67-63 05:42:00 Test Item Value Reference Range Interpretation Comments Rapid TEG Sample Type Citrated Whole Blood (test code = Rapid TEG Sample Type) [facility] KlebergWztyjfgYEZKMLSVBX5322-24-33 05:42:00 Test Item Value Reference Range Interpretation Comments Split Point (test code = Split Point) 0.5 min [facility] KlebergQfzuariXXRUWHDTSN2568-35-07 05:42:00 Test Item Value Reference Range Interpretation Comments ACT (TEG) (test code = ACT (TEG)) 113 s 86-118 [facility] KlebergFonzyjfMWMBUMMCJV0519-84-70 05:42:00 Test Item Value Reference Range Interpretation Comments K-time (test code = K-time) 0.8 min 0.6-2.3 [facility] KlebergRzbajavRSFEYUBVBP9904-29-94 05:42:00 Test Item Value Reference Range Interpretation Comments R-time (test code = R-time) 0.7 min 0.4-0.7 [facility] KlebergIpttwqdQKPQVPCBQJ1729-82-30 05:42:00 Test Item Value Reference Range Interpretation Comments Max Amp (test code = Max Amp) 77 mm 52-71 [facility] KlebergMtddtioJBRBSUYSPH9658-85-11 05:42:00 Test Item Value Reference Range Interpretation Comments Angle (test code = Angle) 81 degrees 64-80 [facility] KlebergFfjbfguVVUGGJMHBL1865-66-22 05:42:00 Test Item Value Reference Range Interpretation Comments Estimated % Lysis (test 0.0 See_Comment [Au tomated message] The code = Estimated % system wh ich generated Lysis) this result tra nsmitted reference range : <=7.5. The reference r tanner was not used to int erpret this result as normal/abnormal . [facility] KlebergFgtnpjnCYBGAIEFOQ9503-49-11 05:42:00 Test Item Value Reference Range Interpretation Comments G-value (test code = G-value) 16.6 5.0-11.6 [facility] AND [id number] 01:15:00 Test Item Value Reference Range Interpretation Comments UA Sq Epi (test code = UA Sq Occasional /LPF Epi) [facility] AND [id number] 01:15:00 Test Item Value Reference Range Interpretation Comments UA Bacteria (test code = None Seen (10/28/14 UA Bacteria) 8:15 PM) [facility] AND [id number] 01:15:00 Test Item Value Reference Range Interpretation Comments UA RBC (test None Seen See_Comment [Automated mes franklin] code = UA RBC) (10/28/14 8:15 The system w hich PM) generated this result transmitted ref erence range: <=2. The reference range was not used to int erpret this result as normal/abnormal . [facility] AND [id number] 01:15:00 Test Item Value Reference Range Interpretation Comments UA Mucus (test code = UA Mucus) Rare /LPF [facility] AND [id number] 01:15:00 Test Item Value Reference Range Interpretation Comments UA WBC (test code = UA WBC) 0-2 /HPF [facility] AND [id number] 01:15:00 Test Item Value Reference Range Interpretation Comments UA Hyal Cast 3-5 (10/28/14 See_Comment [Automated mes franklin] (test code = UA 8:15 PM) The system QuickProNotes) generated this result transmitted ref erence range: <=2. The reference range was not used to int erpret this result as normal/abnormal . [facility] AND [id number] 01:15:00 Test Item Value Reference Range Interpretation Comments UA Leuk Est (test Negative (10/28/14 8:15 code = UA Leuk Est) PM) [facility] AND [id number] 01:15:00 Test Item Value Reference Range Interpretation Comments UA Ketones (test code Negative *NA*(10/28/14 = UA Ketones) 8:15 PM) [facility] AND [id number] 01:15:00 Test Item Value Reference Range Interpretation Comments UA Glucose (test code Negative (10/28/14 8:15 = UA Glucose) PM) [facility] AND [id number] 01:15:00 Test Item Value Reference Range Interpretation Comments UA Protein (test code = Trace *ABN*(10/28/14 UA Protein) 8:15 PM) [facility] AND [id number] 01:15:00 Test Item Value Reference Range Interpretation Comments UA pH (test code = UA pH) 6.5 1 5.0-8.0 [facility] AND [id number] 01:15:00 Test Item Value Reference Range Interpretation Comments UA Spec Grav (test code = UA Spec 1.010 1 Grav) [facility] AND [id number] 01:15:00 Test Item Value Reference Range Interpretation Comments UA Turbidity (test code = Clear (10/28/14 8:15 UA Turbidity) PM) [facility] AND [id number] 01:15:00 Test Item Value Reference Range Interpretation Comments UA Color (test code = Yellow *NA*(10/28/14 UA Color) 8:15 PM) [facility] AND [id number] 01:15:00 Test Item Value Reference Range Interpretation Comments UA Blood (test code = Negative (10/28/14 8:15 UA Blood) PM) [facility] AND [id number] 01:15:00 Test Item Value Reference Range Interpretation Comments UA Bili (test code = Negative *NA*(10/28/14 UA Bili) 8:15 PM) [facility] [id number] 01:15:00 Test Item Value Reference Range Interpretation Comments UA Nitrite (test code Negative (10/28/14 8:15 = UA Nitrite) PM) [facility] [id number] 01:15:00 Test Item Value Reference Range Interpretation Comments UA Urobilinogen (test code = UA 1.0 0.1-1.0 Urobilinogen) [facility] [id number] 01:15:00 Test Item Value Reference Range Interpretation Comments UA Sq Epi (test code = UA Sq Occasional /LPF Epi) [facility] AND [id number] 01:15:00 Test Item Value Reference Range Interpretation Comments UA Bacteria (test code = None Seen (10/28/14 UA Bacteria) 8:15 PM) [facility] AND [id number] 01:15:00 Test Item Value Reference Range Interpretation Comments UA RBC (test None Seen See_Comment [Automated mes franklin] code = UA RBC) (10/28/14 8:15 The system w hich PM) generated this result transmitted ref erence range: <=2. The reference range was not used to int erpret this result as normal/abnormal . [facility] AND [id number] 01:15:00 Test Item Value Reference Range Interpretation Comments UA Mucus (test code = UA Mucus) Rare /LPF [facility] AND [id number] 01:15:00 Test Item Value Reference Range Interpretation Comments UA WBC (test code = UA WBC) 0-2 /HPF [facility] AND [id number] 01:15:00 Test Item Value Reference Range Interpretation Comments UA Hyal Cast 3-5 (10/28/14 See_Comment [Automated mes franklin] (test code = UA 8:15 PM) The system w hich Hyal Cast) generated this result transmitted ref erence range: <=2. The reference range was not used to int erpret this result as normal/abnormal . [facility] [id number] 01:15:00 Test Item Value Reference Range Interpretation Comments UA Leuk Est (test Negative (10/28/14 8:15 code = [facility] Leuk Est) PM) [facility] [id number] 01:15:00 Test Item Value Reference Range Interpretation Comments UA Ketones (test code Negative *NA*(10/28/14 = UA Ketones) 8:15 PM) [facility] [id number] 01:15:00 Test Item Value Reference Range Interpretation Comments UA Glucose (test code Negative (10/28/14 8:15 = UA Glucose) PM) [facility] AND [id number] 01:15:00 Test Item Value Reference Range Interpretation Comments UA Protein (test code = Trace *ABN*(10/28/14 UA Protein) 8:15 PM) [facility] AND [id number] 01:15:00 Test Item Value Reference Range Interpretation Comments UA pH (test code = UA pH) 6.5 1 5.0-8.0 [facility] AND [id number] 01:15:00 Test Item Value Reference Range Interpretation Comments UA Spec Grav (test code = UA Spec 1.010 1 Grav) [facility] AND [id number] 01:15:00 Test Item Value Reference Range Interpretation Comments UA Turbidity (test code = Clear (10/28/14 8:15 UA Turbidity) PM) [facility] AND [id number] 01:15:00 Test Item Value Reference Range Interpretation Comments UA Color (test code = Yellow *NA*(10/28/14 UA Color) 8:15 PM) [facility] AND [id number] 01:15:00 Test Item Value Reference Range Interpretation Comments UA Blood (test code = Negative (10/28/14 8:15 UA Blood) PM) [facility] AND [id number] 01:15:00 Test Item Value Reference Range Interpretation Comments UA Bili (test code = Negative *NA*(10/28/14 UA Bili) 8:15 PM) [facility] [id number] 01:15:00 Test Item Value Reference Range Interpretation Comments UA Nitrite (test code Negative (10/28/14 8:15 = UA Nitrite) PM) [facility] AND [id number] 01:15:00 Test Item Value Reference Range Interpretation Comments UA Urobilinogen (test code = UA 1.0 0.1-1.0 Urobilinogen) [facility]2015-05-16 00:39:00 Test Item Value Reference Range Interpretation Comments Lactic Acid Lvl (test code = Lactic 0.9 0.5-2.2 Acid Lvl) [facility]2015-05-16 00:39:00 Test Item Value Reference Range Interpretation Comments Lactic Acid Lvl (test code = Lactic 0.9 0.5-2.2 Acid Lvl) [facility]2015-05-05 10:24:00 Test Item Value Reference Range Interpretation Comments Magnesium Lvl (test code = Magnesium 1.8 1.8-2.4 Lvl) [facility]2015-05-05 10:24:00 Test Item Value Reference Range Interpretation Comments Phosphorus (test code = Phosphorus) 2.2 2.5-4.5 [facility]2015-05-05 10:24:00 Test Item Value Reference Range Interpretation Comments eGFR (test code = eGFR) 116 [facility]2015-05-05 10:24:00 Test Item Value Reference Range Interpretation Comments CO2 (test code = CO2) 27 24-32 [facility]2015-05-05 10:24:00 Test Item Value Reference Range Interpretation Comments Calcium Lvl (test code = Calcium Lvl) 8.1 8.5-10.5 [facility]2015-05-05 10:24:00 Test Item Value Reference Range Interpretation Comments Chloride Lvl (test code = Chloride Lvl) 106 95-109 [facility]2015-05-05 10:24:00 Test Item Value Reference Range Interpretation Comments Sodium Lvl (test code = Sodium Lvl) 139 135-145 [facility]2015-05-05 10:24:00 Test Item Value Reference Range Interpretation Comments Potassium Lvl (test code = Potassium 4.0 3.5-5.1 Lvl) [facility]2015-05-05 10:24:00 Test Item Value Reference Range Interpretation Comments Creatinine Lvl (test code = Creatinine 0.5 0.5-1.4 Lvl) [facility]2015-05-05 10:24:00 Test Item Value Reference Range Interpretation Comments Glucose Lvl (test code = Glucose Lvl) 82 70-99 [facility]2015-05-05 10:24:00 Test Item Value Reference Range Interpretation Comments BUN (test code = BUN) 11 7-22 [facility]2015-05-05 10:24:00 Test Item Value Reference Range Interpretation Comments AGAP (test code = AGAP) 10.0 10.0-20.0 [facility]bergWjztenhYKMAEGBLEY5694-44-00 10:24:00 Test Item Value Reference Range Interpretation Comments Platelet (test code = Platelet) 610 133-450 [facility] KlebergQhusnivDITXIWHNGV4182-82-08 10:24:00 Test Item Value Reference Range Interpretation Comments MPV (test code = MPV) 6.3 7.4-10.4 [facility] KlebergIheqzkcXCNOVKQHNI9246-37-03 10:24:00 Test Item Value Reference Range Interpretation Comments RDW (test code = RDW) 15.6 11.5-14.5 [facility] KlebergFqphsesJPALRSMFTU4457-91-91 10:24:00 Test Item Value Reference Range Interpretation Comments Hct (test code = Hct) 27.8 42.0-54.0 [facility] KlebergPcuhukoKKOESLVRQV3140-81-25 10:24:00 Test Item Value Reference Range Interpretation Comments Hgb (test code = Hgb) 9.0 14.0-18.0 [facility] KlebergBymfugyEMNZYYVEMY0333-10-08 10:24:00 Test Item Value Reference Range Interpretation Comments RBC (test code = RBC) 3.22 4.70-6.10 [facility] KlebergCizsautUDLKYVXDMC4274-57-39 10:24:00 Test Item Value Reference Range Interpretation Comments WBC (test code = WBC) 6.7 3.7-10.4 [facility] KlebergQgpwdzlISUCWWIALY3462-47-54 10:24:00 Test Item Value Reference Range Interpretation Comments MCV (test code = MCV) 86.5 80.0-94.0 [facility] KlebergAhbozkmIWIJHEDHRU2471-15-72 10:24:00 Test Item Value Reference Range Interpretation Comments MCHC (test code = MCHC) 32.4 32.0-36.0 [facility]bergGxutwzqVUPLSRRWCL1390-67-27 10:24:00 Test Item Value Reference Range Interpretation Comments MCH (test code = MCH) 28.0 pg 27.0-31.0 [facility] KlebergJjlcqsnJFNIROUBPA7817-24-73 10:24:00 Test Item Value Reference Range Interpretation Comments Segs-Bands # (test code = Segs-Bands #) 4.7 1.5-8.1 [facility] KlebergFmnhgudGXHJDKZBZO4391-38-54 10:24:00 Test Item Value Reference Range Interpretation Comments Lymphocytes (test code = Lymphocytes) 14.0 20.0-40.0 [facility] KlebergRdyckwhZXNDIHHWXP1234-32-76 10:24:00 Test Item Value Reference Range Interpretation Comments Monocytes (test code = Monocytes) 10.3 2.0-12.0 [facility] KlebergDmmgpqwMCTTCBLVCD0583-70-85 10:24:00 Test Item Value Reference Range Interpretation Comments Eosinophils (test code = 4.0 See_Comment [A utomated message] The Eosinophils) system which ge nerated this result tra nsmitted reference range : <=4.0. The reference r tanner was not used to int erpret this result as normal/abnormal . [facility] KlebergGrsmgfcNETETUIPOE4523-26-14 10:24:00 Test Item Value Reference Range Interpretation Comments Basophils (test code = 1.2 See_Comment [Aut omated message] The Basophils) system which ge nerated this result tra nsmitted reference range : <=1.0. The reference r tanner was not used to int erpret this result as normal/abnormal . [facility]bergRbmlnpzQTCHEEDAGV7808-73-70 10:24:00 Test Item Value Reference Range Interpretation Comments Segs (test code = Segs) 70.5 45.0-75.0 [facility] KlebergIhopfwdPWRNLORDKS6222-56-90 10:24:00 Test Item Value Reference Range Interpretation Comments Basophils # (test code 0.1 See_Comment [Aut omated message] The = Basophils #) system which generated this result tra nsmitted reference range : <=0.2. The reference r tanner was not used to int erpret this result as normal/abnormal . [facility] KlebergXgodjojNNGKKBLOTG9194-79-89 10:24:00 Test Item Value Reference Range Interpretation Comments Eosinophils # (test code 0.3 See_Comment [A utomated message] The = Eosinophils #) system whic h generated this result tra nsmitted reference range : <=0.5. The reference r tanner was not used to int erpret this result as normal/abnormal . [facility] KlebergTbhpphyBIQANRPBLC3344-01-79 10:24:00 Test Item Value Reference Range Interpretation Comments Monocytes # (test code 0.7 See_Comment [Aut omated message] The = Monocytes #) system which generated this result tra nsmitted reference range : <=0.8. The reference r tanner was not used to int erpret this result as normal/abnormal . [facility] KlebergFqdotcgGUTXZLMWQF2063-27-53 10:24:00 Test Item Value Reference Range Interpretation Comments Lymphocytes # (test code = Lymphocytes 0.9 1.0-5.5 #) [facility]2015-05-05 10:24:00 Test Item Value Reference Range Interpretation Comments Magnesium Lvl (test code = Magnesium 1.8 1.8-2.4 Lvl) [facility]2015-05-05 10:24:00 Test Item Value Reference Range Interpretation Comments Phosphorus (test code = Phosphorus) 2.2 2.5-4.5 [facility]2015-05-05 10:24:00 Test Item Value Reference Range Interpretation Comments eGFR (test code = eGFR) 116 [facility]2015-05-05 10:24:00 Test Item Value Reference Range Interpretation Comments CO2 (test code = CO2) 27 24-32 [facility]2015-05-05 10:24:00 Test Item Value Reference Range Interpretation Comments Calcium Lvl (test code = Calcium Lvl) 8.1 8.5-10.5 [facility]2015-05-05 10:24:00 Test Item Value Reference Range Interpretation Comments Chloride Lvl (test code = Chloride Lvl) 106 95-109 [facility]2015-05-05 10:24:00 Test Item Value Reference Range Interpretation Comments Sodium Lvl (test code = Sodium Lvl) 139 135-145 [facility]2015-05-05 10:24:00 Test Item Value Reference Range Interpretation Comments Potassium Lvl (test code = Potassium 4.0 3.5-5.1 Lvl) [facility]2015-05-05 10:24:00 Test Item Value Reference Range Interpretation Comments Creatinine Lvl (test code = Creatinine 0.5 0.5-1.4 Lvl) [facility]2015-05-05 10:24:00 Test Item Value Reference Range Interpretation Comments Glucose Lvl (test code = Glucose Lvl) 82 70-99 [facility]2015-05-05 10:24:00 Test Item Value Reference Range Interpretation Comments BUN (test code = BUN) 11 7-22 [facility]2015-05-05 10:24:00 Test Item Value Reference Range Interpretation Comments AGAP (test code = AGAP) 10.0 10.0-20.0 [facility] KlebergWqcenhxEVJXIOGXRZ1410-07-06 10:24:00 Test Item Value Reference Range Interpretation Comments Platelet (test code = Platelet) 610 133-450 [facility] KlebergFtljckaNICUSEVIBC2182-18-00 10:24:00 Test Item Value Reference Range Interpretation Comments MPV (test code = MPV) 6.3 7.4-10.4 [facility] KlebergHgykvtlTIQGGZLSWF7080-39-81 10:24:00 Test Item Value Reference Range Interpretation Comments RDW (test code = RDW) 15.6 11.5-14.5 [facility] KlebergWvmhebvZDSHTDVKUT6339-06-00 10:24:00 Test Item Value Reference Range Interpretation Comments Hct (test code = Hct) 27.8 42.0-54.0 [facility] KlebergOaqvmilBTIUJSNWKK6780-16-03 10:24:00 Test Item Value Reference Range Interpretation Comments Hgb (test code = Hgb) 9.0 14.0-18.0 [facility] KlebergYiautljXUPNSTXWIB6174-77-47 10:24:00 Test Item Value Reference Range Interpretation Comments RBC (test code = RBC) 3.22 4.70-6.10 [facility] KlebergOjeaibrKZFSHQEWZM9516-96-18 10:24:00 Test Item Value Reference Range Interpretation Comments WBC (test code = WBC) 6.7 3.7-10.4 [facility] KlebergAvkivivFEBZHDIDDH2710-99-48 10:24:00 Test Item Value Reference Range Interpretation Comments MCV (test code = MCV) 86.5 80.0-94.0 [facility] KlebergMevjfowXWQZVWLSDK4023-86-72 10:24:00 Test Item Value Reference Range Interpretation Comments MCHC (test code = MCHC) 32.4 32.0-36.0 [facility] KlebergJoeuippAEACFAJKAG9734-33-17 10:24:00 Test Item Value Reference Range Interpretation Comments MCH (test code = MCH) 28.0 pg 27.0-31.0 [facility] KlebergDdcqoewPBMVUQHECX3249-04-59 10:24:00 Test Item Value Reference Range Interpretation Comments Segs-Bands # (test code = Segs-Bands #) 4.7 1.5-8.1 [facility] KlebergFocewfiWMTUJMEKBJ5133-71-46 10:24:00 Test Item Value Reference Range Interpretation Comments Lymphocytes (test code = Lymphocytes) 14.0 20.0-40.0 [facility] KlebergHqmqjoeAVWMTUOTJY8627-22-08 10:24:00 Test Item Value Reference Range Interpretation Comments Monocytes (test code = Monocytes) 10.3 2.0-12.0 [facility] KlebergTvaxrwqVTZNXHIXPQ4498-33-13 10:24:00 Test Item Value Reference Range Interpretation Comments Eosinophils (test code = 4.0 See_Comment [A utomated message] The Eosinophils) system which ge nerated this result tra nsmitted reference range : <=4.0. The reference r tanner was not used to int erpret this result as normal/abnormal . [facility] KlebergCetfsdyEIGBIGYHMG1133-51-31 10:24:00 Test Item Value Reference Range Interpretation Comments Basophils (test code = 1.2 See_Comment [Aut omated message] The Basophils) system which ge nerated this result tra nsmitted reference range : <=1.0. The reference r tanner was not used to int erpret this result as normal/abnormal . [facility] KlebergUmktfuyDHCFTHELKQ4487-38-69 10:24:00 Test Item Value Reference Range Interpretation Comments Segs (test code = Segs) 70.5 45.0-75.0 [facility] KlebergJkbcehwIFIEKVVYOZ8693-44-88 10:24:00 Test Item Value Reference Range Interpretation Comments Basophils # (test code 0.1 See_Comment [Aut omated message] The = Basophils #) system which generated this result tra nsmitted reference range : <=0.2. The reference r tanner was not used to int erpret this result as normal/abnormal . [facility] KlebergFlecxveDBWKEZAFWE3225-15-34 10:24:00 Test Item Value Reference Range Interpretation Comments Eosinophils # (test code 0.3 See_Comment [A utomated message] The = Eosinophils #) system whic h generated this result tra nsmitted reference range : <=0.5. The reference r tanner was not used to int erpret this result as normal/abnormal . [facility] KlebergNorfrzjEOEFTMQSMF6536-28-06 10:24:00 Test Item Value Reference Range Interpretation Comments Monocytes # (test code 0.7 See_Comment [Aut omated message] The = Monocytes #) system which generated this result tra nsmitted reference range : <=0.8. The reference r tanner was not used to int erpret this result as normal/abnormal . [facility] KlebergChfemkyZFKQGIRSBW4625-06-66 10:24:00 Test Item Value Reference Range Interpretation Comments Lymphocytes # (test code = Lymphocytes 0.9 1.0-5.5 #) [place] [id number] 17:04:00 Test Item Value Reference Range Interpretation Comments Vanco Tr TND (test code = Vanco Tr TND) [address] [place] [id number] 17:04:00 Test Item Value Reference Range Interpretation Comments Vanco Tr (test code = Vanco Tr) 14.8 [place] [id number] 17:04:00 Test Item Value Reference Range Interpretation Comments Vanco Tr TND (test code = Vanco Tr TND) [address] [place] [id number] 17:04:00 Test Item Value Reference Range Interpretation Comments Vanco Tr (test code = Vanco Tr) 14.8 [facility]2015-05-03 10:12:00 Test Item Value Reference Range Interpretation Comments Phosphorus (test code = Phosphorus) 1.7 2.5-4.5 [facility]2015-05-03 10:12:00 Test Item Value Reference Range Interpretation Comments Magnesium Lvl (test code = Magnesium 2.0 1.8-2.4 Lvl) [facility]2015-05-03 10:12:00 Test Item Value Reference Range Interpretation Comments Glucose Lvl (test code = Glucose Lvl) 126 70-99 [facility]2015-05-03 10:12:00 Test Item Value Reference Range Interpretation Comments BUN (test code = BUN) 11 7-22 [facility]2015-05-03 10:12:00 Test Item Value Reference Range Interpretation Comments Calcium Lvl (test code = Calcium Lvl) 7.6 8.5-10.5 [facility]2015-05-03 10:12:00 Test Item Value Reference Range Interpretation Comments Creatinine Lvl (test code = Creatinine 0.6 0.5-1.4 Lvl) [facility]2015-05-03 10:12:00 Test Item Value Reference Range Interpretation Comments Chloride Lvl (test code = Chloride Lvl) 102 95-109 [facility]2015-05-03 10:12:00 Test Item Value Reference Range Interpretation Comments CO2 (test code = CO2) 28 24-32 [facility]2015-05-03 10:12:00 Test Item Value Reference Range Interpretation Comments Sodium Lvl (test code = Sodium Lvl) 137 135-145 [facility]2015-05-03 10:12:00 Test Item Value Reference Range Interpretation Comments Potassium Lvl (test code = Potassium 3.9 3.5-5.1 Lvl) [facility]2015-05-03 10:12:00 Test Item Value Reference Range Interpretation Comments eGFR (test code = eGFR) 108 [facility]2015-05-03 10:12:00 Test Item Value Reference Range Interpretation Comments AGAP (test code = AGAP) 10.9 10.0-20.0 [facility] KlebergRphcfqeAOFNZSCKME5530-87-85 10:12:00 Test Item Value Reference Range Interpretation Comments Monocytes # (test code 0.7 See_Comment [Aut omated message] The = Monocytes #) system which generated this result tra nsmitted reference range : <=0.8. The reference r tanner was not used to int erpret this result as normal/abnormal . [facility] KlebergThdvoxfNRIPPYBWXP4548-93-19 10:12:00 Test Item Value Reference Range Interpretation Comments Eosinophils # (test code 0.1 See_Comment [A utomated message] The = Eosinophils #) system whic h generated this result tra nsmitted reference range : <=0.5. The reference r tanner was not used to int erpret this result as normal/abnormal . [facility] KlebergHweydqbKCUUAKEIDW5621-45-57 10:12:00 Test Item Value Reference Range Interpretation Comments Basophils # (test code 0.1 See_Comment [Aut omated message] The = Basophils #) system which generated this result tra nsmitted reference range : <=0.2. The reference r tanner was not used to int erpret this result as normal/abnormal . [facility] KlebergRmagjesTMXAWLONJW0310-04-09 10:12:00 Test Item Value Reference Range Interpretation Comments Segs-Bands # (test code = Segs-Bands #) 7.8 1.5-8.1 [facility] KlebergKdkbbntUJKWOVUDFP3963-28-21 10:12:00 Test Item Value Reference Range Interpretation Comments Lymphocytes # (test code = Lymphocytes 0.8 1.0-5.5 #) [facility] KlebergRlaaxofEKZGCALNKM0736-51-43 10:12:00 Test Item Value Reference Range Interpretation Comments Basophils (test code = 1.0 See_Comment [Aut omated message] The Basophils) system which ge nerated this result tra nsmitted reference range : <=1.0. The reference r tanner was not used to int erpret this result as normal/abnormal . [facility] KlebergTpbrctxBESXISLHOL2724-73-29 10:12:00 Test Item Value Reference Range Interpretation Comments Monocytes (test code = Monocytes) 6.9 2.0-12.0 [facility] KlebergRmrwtbqWPMJODWSUU5173-74-54 10:12:00 Test Item Value Reference Range Interpretation Comments Eosinophils (test code = 1.3 See_Comment [A utomated message] The Eosinophils) system which ge nerated this result tra nsmitted reference range : <=4.0. The reference r tanner was not used to int erpret this result as normal/abnormal . [facility] KlebergWtgoioiKYDYZQGFDS1340-29-16 10:12:00 Test Item Value Reference Range Interpretation Comments Lymphocytes (test code = Lymphocytes) 8.4 20.0-40.0 [facility] KlebergTkpaqnxOATDKHVIKR8612-77-04 10:12:00 Test Item Value Reference Range Interpretation Comments Segs (test code = Segs) 82.4 45.0-75.0 [facility] KlebergMvwbvdaZHORCTBYUK6141-45-83 10:12:00 Test Item Value Reference Range Interpretation Comments Platelet (test code = Platelet) 765 519-777 [facility] KlebergMrswzrcLCSSLXNEDG1466-55-32 10:12:00 Test Item Value Reference Range Interpretation Comments MPV (test code = MPV) 6.3 7.4-10.4 [facility] KlebergVnublxgCULWEHXIVD0184-34-04 10:12:00 Test Item Value Reference Range Interpretation Comments RDW (test code = RDW) 16.5 11.5-14.5 [facility] KlebergSdmrjlpKZFWGKXVQJ0916-91-80 10:12:00 Test Item Value Reference Range Interpretation Comments Hgb (test code = Hgb) 9.1 14.0-18.0 [facility] KlebergLoixcpyQJVWHMALJC6646-78-78 10:12:00 Test Item Value Reference Range Interpretation Comments WBC (test code = WBC) 9.4 3.7-10.4 [facility] KlebergCmdaiapJOQGAURPUW2398-40-44 10:12:00 Test Item Value Reference Range Interpretation Comments RBC (test code = RBC) 3.14 4.70-6.10 [facility] KlebergOchbyvbGKGXZCBRKM8439-05-67 10:12:00 Test Item Value Reference Range Interpretation Comments MCH (test code = MCH) 28.9 pg 27.0-31.0 [facility] KlebergGomjczaLMEXPPZRZV5497-47-19 10:12:00 Test Item Value Reference Range Interpretation Comments MCHC (test code = MCHC) 33.1 32.0-36.0 [facility] KlebergMffokkiXXTTEOVGXL0480-08-22 10:12:00 Test Item Value Reference Range Interpretation Comments MCV (test code = MCV) 87.5 80.0-94.0 [facility] KlebergRyihfthMWVNMJAVFX2468-89-99 10:12:00 Test Item Value Reference Range Interpretation Comments Hct (test code = Hct) 27.4 42.0-54.0 [facility]2015-05-03 10:12:00 Test Item Value Reference Range Interpretation Comments Phosphorus (test code = Phosphorus) 1.7 2.5-4.5 [facility]2015-05-03 10:12:00 Test Item Value Reference Range Interpretation Comments Magnesium Lvl (test code = Magnesium 2.0 1.8-2.4 Lvl) [facility]2015-05-03 10:12:00 Test Item Value Reference Range Interpretation Comments Glucose Lvl (test code = Glucose Lvl) 126 70-99 [facility]2015-05-03 10:12:00 Test Item Value Reference Range Interpretation Comments BUN (test code = BUN) 11 7-22 [facility]2015-05-03 10:12:00 Test Item Value Reference Range Interpretation Comments Calcium Lvl (test code = Calcium Lvl) 7.6 8.5-10.5 [facility]2015-05-03 10:12:00 Test Item Value Reference Range Interpretation Comments Creatinine Lvl (test code = Creatinine 0.6 0.5-1.4 Lvl) [facility]2015-05-03 10:12:00 Test Item Value Reference Range Interpretation Comments Chloride Lvl (test code = Chloride Lvl) 102 95-109 [facility]2015-05-03 10:12:00 Test Item Value Reference Range Interpretation Comments CO2 (test code = CO2) 28 24-32 [facility]2015-05-03 10:12:00 Test Item Value Reference Range Interpretation Comments Sodium Lvl (test code = Sodium Lvl) 137 135-145 [facility]2015-05-03 10:12:00 Test Item Value Reference Range Interpretation Comments Potassium Lvl (test code = Potassium 3.9 3.5-5.1 Lvl) [facility]2015-05-03 10:12:00 Test Item Value Reference Range Interpretation Comments eGFR (test code = eGFR) 108 [facility]2015-05-03 10:12:00 Test Item Value Reference Range Interpretation Comments AGAP (test code = AGAP) 10.9 10.0-20.0 [facility] KlebergGqpdpkeOFTBLCGSPO0978-64-95 10:12:00 Test Item Value Reference Range Interpretation Comments Monocytes # (test code 0.7 See_Comment [Aut omated message] The = Monocytes #) system which generated this result tra nsmitted reference range : <=0.8. The reference r tanner was not used to int erpret this result as normal/abnormal . [facility] KlebergBhblgiwBFUCFNLXGO9433-90-64 10:12:00 Test Item Value Reference Range Interpretation Comments Eosinophils # (test code 0.1 See_Comment [A utomated message] The = Eosinophils #) system whic h generated this result tra nsmitted reference range : <=0.5. The reference r tanner was not used to int erpret this result as normal/abnormal . [facility] KlebergZztegflVLZICJXBRD8629-56-78 10:12:00 Test Item Value Reference Range Interpretation Comments Basophils # (test code 0.1 See_Comment [Aut omated message] The = Basophils #) system which generated this result tra nsmitted reference range : <=0.2. The reference r tanner was not used to int erpret this result as normal/abnormal . [facility]VbxymfqOSMGOHSJAP6727-76-78 10:12:00 Test Item Value Reference Range Interpretation Comments Segs-Bands # (test code = Segs-Bands #) 7.8 1.5-8.1 [facility]bergVnebmleSKHJBBYUWS6407-39-51 10:12:00 Test Item Value Reference Range Interpretation Comments Lymphocytes # (test code = Lymphocytes 0.8 1.0-5.5 #) [facility]bergYurcxvkIBJUANASQB1010-04-25 10:12:00 Test Item Value Reference Range Interpretation Comments Basophils (test code = 1.0 See_Comment [Aut omated message] The Basophils) system which ge nerated this result tra nsmitted reference range : <=1.0. The reference r tanner was not used to int erpret this result as normal/abnormal . [facility]bergQjduoapZCLLFQQMGC9765-10-01 10:12:00 Test Item Value Reference Range Interpretation Comments Monocytes (test code = Monocytes) 6.9 2.0-12.0 [facility]bergJqtxqqxJZJFNCHHON8388-82-95 10:12:00 Test Item Value Reference Range Interpretation Comments Eosinophils (test code = 1.3 See_Comment [A utomated message] The Eosinophils) system which ge nerated this result tra nsmitted reference range : <=4.0. The reference r tanner was not used to int erpret this result as normal/abnormal . [facility]bergXsjoofgUMHRHLQPLF3857-43-93 10:12:00 Test Item Value Reference Range Interpretation Comments Lymphocytes (test code = Lymphocytes) 8.4 20.0-40.0 [facility]bergEexvzwuTMXPJUNIRQ8417-07-38 10:12:00 Test Item Value Reference Range Interpretation Comments Segs (test code = Segs) 82.4 45.0-75.0 [facility]bergOhjlqexOQHGGSTYQS8931-70-17 10:12:00 Test Item Value Reference Range Interpretation Comments Platelet (test code = Platelet) 679 689-450 [facility]bergKksqlobHEYPVMAUMY2870-02-11 10:12:00 Test Item Value Reference Range Interpretation Comments MPV (test code = MPV) 6.3 7.4-10.4 [facility]bergVtrftchVAMLALGAAH9240-99-14 10:12:00 Test Item Value Reference Range Interpretation Comments RDW (test code = RDW) 16.5 11.5-14.5 [facility]bergXbgkuruFKIWFBZBON8261-70-79 10:12:00 Test Item Value Reference Range Interpretation Comments Hgb (test code = Hgb) 9.1 14.0-18.0 [facility]bergGmtvaabZWKHLFBXHH5962-85-78 10:12:00 Test Item Value Reference Range Interpretation Comments WBC (test code = WBC) 9.4 3.7-10.4 [facility]bergVhllbdiINRWZILLTU2919-30-71 10:12:00 Test Item Value Reference Range Interpretation Comments RBC (test code = RBC) 3.14 4.70-6.10 [facility] KlebergVidiacoNLBOUYPMPC6666-27-64 10:12:00 Test Item Value Reference Range Interpretation Comments MCH (test code = MCH) 28.9 pg 27.0-31.0 [facility]bergXrqozftKHLIJSOILN1051-81-40 10:12:00 Test Item Value Reference Range Interpretation Comments MCHC (test code = MCHC) 33.1 32.0-36.0 [facility]bergZcdyqfmMFNBHEAOKO0313-29-56 10:12:00 Test Item Value Reference Range Interpretation Comments MCV (test code = MCV) 87.5 80.0-94.0 [facility]bergJslaksyMICCGFJCNH1986-94-32 10:12:00 Test Item Value Reference Range Interpretation Comments Hct (test code = Hct) 27.4 42.0-54.0 [facility]BsnhrwoEXWLRZHEBF4602-00-31 04:08:00 Test Item Value Reference Range Interpretation Comments Vanco Tr TND (test code = Vanco Tr TND) 2229 [facility] CenterTjucmlfTHRMJXFZAY4207-98-65 04:08:00 Test Item Value Reference Range Interpretation Comments Vanco Tr (test code = Vanco Tr) 12.6 [facility] CenterWkrdwgwQIGEBOBTCD5839-13-17 04:08:00 Test Item Value Reference Range Interpretation Comments Vanco Tr TND (test code = Vanco Tr TND) 2229 [facility] CenterKkisjmoPLLYBDKXAR9540-52-36 04:08:00 Test Item Value Reference Range Interpretation Comments Vanco Tr (test code = Vanco Tr) 12.6 [facility] LakeannPARATHYROID AEOZMPP0840-71-58 10:44:00 Test Item Value Reference Range Interpretation Comments Ca Norm WB (test code = Ca Norm WB) 1.04 1.05-1.25 [facility] LakeannPARATHYROID FLXIRQQ0533-75-62 10:44:00 Test Item Value Reference Range Interpretation Comments Ca Ion WB (test code = Ca Ion WB) 1.08 1.05-1.25 [facility]2015-05-02 10:44:00 Test Item Value Reference Range Interpretation Comments Ca Norm WB (test code = Ca Norm WB) 1.04 1.05-1.25 [facility]2015-05-02 10:44:00 Test Item Value Reference Range Interpretation Comments Ca Ion WB (test code = Ca Ion WB) 1.08 1.05-1.25 [facility]2015-05-02 07:31:00 Test Item Value Reference Range Interpretation Comments eGFR (test code = eGFR) 96 [facility]2015-05-02 07:31:00 Test Item Value Reference Range Interpretation Comments Calcium Lvl (test code = Calcium Lvl) 7.8 8.5-10.5 [facility]2015-05-02 07:31:00 Test Item Value Reference Range Interpretation Comments Chloride Lvl (test code = Chloride Lvl) 100 95-109 [facility]2015-05-02 07:31:00 Test Item Value Reference Range Interpretation Comments CO2 (test code = CO2) 25 24-32 [facility]2015-05-02 07:31:00 Test Item Value Reference Range Interpretation Comments Potassium Lvl (test code = Potassium 4.2 3.5-5.1 Lvl) [facility]2015-05-02 07:31:00 Test Item Value Reference Range Interpretation Comments Creatinine Lvl (test code = Creatinine 0.8 0.5-1.4 Lvl) [facility]2015-05-02 07:31:00 Test Item Value Reference Range Interpretation Comments Sodium Lvl (test code = Sodium Lvl) 135 135-145 [facility]2015-05-02 07:31:00 Test Item Value Reference Range Interpretation Comments BUN (test code = BUN) 16 7-22 [facility]2015-05-02 07:31:00 Test Item Value Reference Range Interpretation Comments Glucose Lvl (test code = Glucose Lvl) 229 70-99 [facility]2015-05-02 07:31:00 Test Item Value Reference Range Interpretation Comments AGAP (test code = AGAP) 14.2 10.0-20.0 [facility] KlebergCdzvudiSDQOHBMMZZ9190-69-77 07:31:00 Test Item Value Reference Range Interpretation Comments Monocytes # (test code 1.0 See_Comment [Aut omated message] The = Monocytes #) system which generated this result tra nsmitted reference range : <=0.8. The reference r tanner was not used to int erpret this result as normal/abnormal . [facility]bergXpoxlgpFJDKGEJRON4157-49-10 07:31:00 Test Item Value Reference Range Interpretation Comments Eosinophils # (test code 0.1 See_Comment [A utomated message] The = Eosinophils #) system whic h generated this result tra nsmitted reference range : <=0.5. The reference r tanner was not used to int erpret this result as normal/abnormal . [facility]bergVsvyroqOMOSQCXKBL9439-21-50 07:31:00 Test Item Value Reference Range Interpretation Comments Segs-Bands # (test code = Segs-Bands #) 10.0 1.5-8.1 [facility]bergEzsjotjOEMFODQJQV5060-97-93 07:31:00 Test Item Value Reference Range Interpretation Comments Lymphocytes # (test code = Lymphocytes 0.9 1.0-5.5 #) [facility] KlebergRlctdlpMMUIAJQBUX3277-96-77 07:31:00 Test Item Value Reference Range Interpretation Comments Basophils (test code = 0.2 See_Comment [Aut omated message] The Basophils) system which ge nerated this result tra nsmitted reference range : <=1.0. The reference r tanner was not used to int erpret this result as normal/abnormal . [facility]bergWapdlfwRYYHYAPRDQ8899-98-97 07:31:00 Test Item Value Reference Range Interpretation Comments Eosinophils (test code = 1.0 See_Comment [A utomated message] The Eosinophils) system which ge nerated this result tra nsmitted reference range : <=4.0. The reference r tanner was not used to int erpret this result as normal/abnormal . [facility] KlebergThxfelyMSLTUAHKZC4027-77-55 07:31:00 Test Item Value Reference Range Interpretation Comments Monocytes (test code = Monocytes) 8.0 2.0-12.0 [facility] KlebergGzevciuOOCJWSHLEG4949-76-69 07:31:00 Test Item Value Reference Range Interpretation Comments Lymphocytes (test code = Lymphocytes) 7.3 20.0-40.0 [facility]bergNewjspqJNQKCKALWU7417-80-92 07:31:00 Test Item Value Reference Range Interpretation Comments Segs (test code = Segs) 83.5 45.0-75.0 [facility]bergQnlgcwoMVWBRPPXVR6799-22-54 07:31:00 Test Item Value Reference Range Interpretation Comments MPV (test code = MPV) 6.4 7.4-10.4 [facility]bergPwwcgbpCWHOFUIWAF3874-99-79 07:31:00 Test Item Value Reference Range Interpretation Comments Platelet (test code = Platelet) 733 133450 [facility]bergQcsyzcuOMJBDKIHPI1263-44-18 07:31:00 Test Item Value Reference Range Interpretation Comments RDW (test code = RDW) 16.0 11.5-14.5 [facility] KlebergLzhyundVJBRSJLJHT0362-33-36 07:31:00 Test Item Value Reference Range Interpretation Comments MCH (test code = MCH) 28.4 pg 27.0-31.0 [facility] KlebergZgtnlpyIWCFLOSIXX9926-25-36 07:31:00 Test Item Value Reference Range Interpretation Comments MCHC (test code = MCHC) 32.3 32.0-36.0 [facility]bergJvrcfshBHHMPKJRKJ2538-18-40 07:31:00 Test Item Value Reference Range Interpretation Comments Hct (test code = Hct) 27.5 42.0-54.0 [facility]bergBfdlqtcBSXUUTVFCC5541-88-57 07:31:00 Test Item Value Reference Range Interpretation Comments MCV (test code = MCV) 87.7 80.0-94.0 [facility] KlebergXhsoxnaHCAJADOKZW9380-29-85 07:31:00 Test Item Value Reference Range Interpretation Comments Hgb (test code = Hgb) 8.9 14.0-18.0 [facility] KlebergMeebonrBFDKCABBFL4343-11-95 07:31:00 Test Item Value Reference Range Interpretation Comments RBC (test code = RBC) 3.13 4.70-6.10 [facility]bergVfjlqkzLZRXSOIWJA8182-18-06 07:31:00 Test Item Value Reference Range Interpretation Comments WBC (test code = WBC) 12.0 3.7-10.4 [facility]2015-05-02 07:31:00 Test Item Value Reference Range Interpretation Comments eGFR (test code = eGFR) 96 [facility]2015-05-02 07:31:00 Test Item Value Reference Range Interpretation Comments Calcium Lvl (test code = Calcium Lvl) 7.8 8.5-10.5 [facility]2015-05-02 07:31:00 Test Item Value Reference Range Interpretation Comments Chloride Lvl (test code = Chloride Lvl) 100 95-109 [place] 511915-05-02 07:31:00 Test Item Value Reference Range Interpretation Comments CO2 (test code = CO2) 25 24-32 [place] [address]-05-02 07:31:00 Test Item Value Reference Range Interpretation Comments Potassium Lvl (test code = Potassium 4.2 3.5-5.1 Lvl) [place] 511915-05-02 07:31:00 Test Item Value Reference Range Interpretation Comments Creatinine Lvl (test code = Creatinine 0.8 0.5-1.4 Lvl) [place] 511915-05-02 07:31:00 Test Item Value Reference Range Interpretation Comments Sodium Lvl (test code = Sodium Lvl) 135 135-145 [place] 511915-05-02 07:31:00 Test Item Value Reference Range Interpretation Comments BUN (test code = BUN) 16 7-22 [place] 511915-05-02 07:31:00 Test Item Value Reference Range Interpretation Comments Glucose Lvl (test code = Glucose Lvl) 229 70-99 [place] 511915-05-02 07:31:00 Test Item Value Reference Range Interpretation Comments AGAP (test code = AGAP) 14.2 10.0-20.0 [facility]bergDhmqllkNCBJDUXXSS1952 07:31:00 Test Item Value Reference Range Interpretation Comments Monocytes # (test code 1.0 See_Comment [Aut omated message] The = Monocytes #) system which generated this result tra nsmitted reference range : <=0.8. The reference r tanner was not used to int erpret this result as normal/abnormal . [facility]bergHwrjwmcMAPUBJPEML0410-59-84 07:31:00 Test Item Value Reference Range Interpretation Comments Eosinophils # (test code 0.1 See_Comment [A utomated message] The = Eosinophils #) system whic h generated this result tra nsmitted reference range : <=0.5. The reference r tanner was not used to int erpret this result as normal/abnormal . [facility]bergAvzthgdGCTBASPEKV6504-55-72 07:31:00 Test Item Value Reference Range Interpretation Comments Segs-Bands # (test code = Segs-Bands #) 10.0 1.5-8.1 [facility]bergGbivkxpDENVJDVWKT9724-99-59 07:31:00 Test Item Value Reference Range Interpretation Comments Lymphocytes # (test code = Lymphocytes 0.9 1.0-5.5 #) [facility]bergOdfpdnrXQSIMYJMLF1032-00-24 07:31:00 Test Item Value Reference Range Interpretation Comments Basophils (test code = 0.2 See_Comment [Aut omated message] The Basophils) system which ge nerated this result tra nsmitted reference range : <=1.0. The reference r tanner was not used to int erpret this result as normal/abnormal . [facility]bergWmiipaqBHSHZKXKWG2004-52-07 07:31:00 Test Item Value Reference Range Interpretation Comments Eosinophils (test code = 1.0 See_Comment [A utomated message] The Eosinophils) system which ge nerated this result tra nsmitted reference range : <=4.0. The reference r tanner was not used to int erpret this result as normal/abnormal . [facility]bergZzizqduNJMVGXDEWM7113-18-61 07:31:00 Test Item Value Reference Range Interpretation Comments Monocytes (test code = Monocytes) 8.0 2.0-12.0 [facility]bergFcdomrgQGVFZQWXSY9319-58-39 07:31:00 Test Item Value Reference Range Interpretation Comments Lymphocytes (test code = Lymphocytes) 7.3 20.0-40.0 [facility] KlebergDujqtbhEJQTJFUBNN1367-87-70 07:31:00 Test Item Value Reference Range Interpretation Comments Segs (test code = Segs) 83.5 45.0-75.0 [facility] KlebergSbydnqnFFXJWZXNDY6740-63-43 07:31:00 Test Item Value Reference Range Interpretation Comments MPV (test code = MPV) 6.4 7.4-10.4 [facility] KlebergItlxlzwLVSJCANUGL8553-36-71 07:31:00 Test Item Value Reference Range Interpretation Comments Platelet (test code = Platelet) 733 133-450 [facility]bergKfhlobcXDXBYPJDLO9090-08-04 07:31:00 Test Item Value Reference Range Interpretation Comments RDW (test code = RDW) 16.0 11.5-14.5 [facility] KlebergMzktqyfYDSCDAMOTC0138-05-77 07:31:00 Test Item Value Reference Range Interpretation Comments MCH (test code = MCH) 28.4 pg 27.0-31.0 [facility] KlebergTvfockdADZQQLRNBJ3468-32-35 07:31:00 Test Item Value Reference Range Interpretation Comments MCHC (test code = MCHC) 32.3 32.0-36.0 [facility]bergPizwogbVUZUUUDOQX2333-09-11 07:31:00 Test Item Value Reference Range Interpretation Comments Hct (test code = Hct) 27.5 42.0-54.0 [facility]bergYhjmgdxFHUWXKOOIM2604-00-43 07:31:00 Test Item Value Reference Range Interpretation Comments MCV (test code = MCV) 87.7 80.0-94.0 [facility] KlebergGimrqerBHFBAJNSAS9906-99-77 07:31:00 Test Item Value Reference Range Interpretation Comments Hgb (test code = Hgb) 8.9 14.0-18.0 [facility] KlebergIexhadmOTXZIZXKLR7209-92-07 07:31:00 Test Item Value Reference Range Interpretation Comments RBC (test code = RBC) 3.13 4.70-6.10 [facility]bergLjjrdjxMCUQHODQTT3405-58-29 07:31:00 Test Item Value Reference Range Interpretation Comments WBC (test code = WBC) 12.0 3.7-10.4 [facility]hamWibnzgbRUOGAAJWOA8243-08-42 19:52:00 Test Item Value Reference Range Interpretation Comments Vanco Tr (test code = Vanco Tr) 10.0 [facility] LakeZkcbwcuJBTLAPDNQQ4035-99-01 19:52:00 Test Item Value Reference Range Interpretation Comments Vanco Tr TND (test code = Vanco Tr see emar TND) [facility]owkxKTHYRAVZQZ4376-23-13 19:52:00 Test Item Value Reference Range Interpretation Comments Vanco Tr (test code = Vanco Tr) 10.0 [facility] LakeFsblxlsOCWSBSOIHK5341-64-69 19:52:00 Test Item Value Reference Range Interpretation Comments Vanco Tr TND (test code = Vanco Tr see emar TND) [facility] XGDYKZX1732-39-13 15:17:00 Test Item Value Reference Range Interpretation Comments Ca Norm WB (test code = Ca Norm WB) 1.03 1.05-1.25 [facility] LakeannPARATHYROID [id number] 15:17:00 Test Item Value Reference Range Interpretation Comments Ca Ion WB (test code = Ca Ion WB) 1.06 1.05-1.25 [facility]ATHY[facility] KMZEYZV8921-68-25 15:17:00 Test Item Value Reference Range Interpretation Comments Ca Norm WB (test code = Ca Norm WB) 1.03 1.05-1.25 [facility]hamPARATHYROID NRLKZPG3308-23-64 15:17:00 Test Item Value Reference Range Interpretation Comments Ca Ion WB (test code = Ca Ion WB) 1.06 1.05-1.25 [facility]hamMvexslbSNVMIAHAVH1923-71-99 13:20:00 Test Item Value Reference Range Interpretation Comments Prealbumin (test code = Prealbumin) 5.5 18.0-45.0 [facility] BrenhamMgzyobrAEKWFNMWIO9915-61-47 13:20:00 Test Item Value Reference Range Interpretation Comments CRP, High Sensitivity (test code >190.0 mg/L = CRP, High Sensitivity) [facility]RehojzhBPVVAGBQIE8056-24-94 13:20:00 Test Item Value Reference Range Interpretation Comments Prealbumin (test code = Prealbumin) 5.5 18.0-45.0 [facility] BrenhamXweypzlJXMBTWPSHH9246-08-17 13:20:00 Test Item Value Reference Range Interpretation Comments CRP, High Sensitivity (test code >190.0 mg/L = CRP, High Sensitivity) [facility]bergBtspncfCQYBUWKYWN9788-33-13 05:36:00 Test Item Value Reference Range Interpretation Comments Anisocyte (test code = 1+ *ABN*(10/14/14 Anisocyte) 12:36 AM) [facility]bergSmzugwgOXKJZBBZPN6618-18-25 05:36:00 Test Item Value Reference Range Interpretation Comments Polychrom (test code = Moderate *ABN*(10/14/14 Polychrom) 12:36 AM) [facility]bergUedcvkqCFITJNSBLI3649-60-18 05:36:00 Test Item Value Reference Range Interpretation Comments Anisocyte (test code = 1+ *ABN*(10/14/14 Anisocyte) 12:36 AM) [facility]bergDqkvwhuJEHGNIVSJN2534-81-07 05:36:00 Test Item Value Reference Range Interpretation Comments Polychrom (test code = Moderate *ABN*(10/14/14 Polychrom) 12:36 AM) [facility] PIZQBNO9339-37-86 08:30:00 Test Item Value Reference Range Interpretation Comments ABO/Rh (test code = ABO/Rh) B POS [facility] KLTFGKC5839-29-24 08:30:00 Test Item Value Reference Range Interpretation Comments Antibody Scrn (test Negative (10/13/14 3:30 code = Antibody Scrn) AM) [facility] [id number] 08:30:00 Test Item Value Reference Range Interpretation Comments ABO/Rh (test code = ABO/Rh) B POS [facility] [employer] BANK KVKQJOJ9075-25-21 08:30:00 Test Item Value Reference Range Interpretation Comments Antibody Scrn (test Negative (10/13/14 3:30 code = Antibody Scrn) AM) [facility] [id number] 07:44:00 Test Item Value Reference Range Interpretation Comments RBC product (test Modification Required code = RBC product) (10/13/14 2:44 AM) [facility] [id number] 07:44:00 Test Item Value Reference Range Interpretation Comments RBC product (test Modification Required code = RBC product) (10/13/14 2:44 AM) [facility] [employer] [id number] 06:22:00 Test Item Value Reference Range Interpretation Comments ALT (test code = ALT) 12 See_Comment [Auto mated message] The system which ge nerated this result transmit odilia reference range : <=65. The reference range was not used to interpr et this result as eric l/abnormal. [facility] [employer] [id number] 06:22:00 Test Item Value Reference Range Interpretation Comments Albumin Lvl (test code = Albumin Lvl) 1.4 3.5-5.0 [facility] [employer] [id number] 06:22:00 Test Item Value Reference Range Interpretation Comments Total Protein (test code = Total 6.8 6.4-8.4 Protein) [facility] [employer] [id number] 06:22:00 Test Item Value Reference Range Interpretation Comments AST (test code = AST) 18 See_Comment [Auto mated message] The system which ge nerated this result transmit odilia reference range : <=37. The reference range was not used to interpr et this result as eric l/abnormal. [employer]2015-04-30 06:22:00 Test Item Value Reference Range Interpretation Comments Bili Total (test code = Bili Total) 0.8 0.2-1.3 [facility]2015-04-30 06:22:00 Test Item Value Reference Range Interpretation Comments Alk Phos (test code = Alk Phos) 101 39-136 [facility]2015-04-30 06:22:00 Test Item Value Reference Range Interpretation Comments A/G Ratio (test code = A/G Ratio) 0.3 0.7-1.6 [facility]2015-04-30 06:22:00 Test Item Value Reference Range Interpretation Comments Globulin (test code = Globulin) 5.4 2.0-4.0 [facility]2015-04-30 06:22:00 Test Item Value Reference Range Interpretation Comments B/C Ratio (test code = B/C Ratio) 16 6-25 [facility]2015-04-30 06:22:00 Test Item Value Reference Range Interpretation Comments Lactic Acid Lvl (test code = Lactic 1.0 0.5-2.2 Acid Lvl) [facility] KlebergYfleqqtNCFSNOMVQV0059-88-06 06:22:00 Test Item Value Reference Range Interpretation Comments Bands (test code = 1.0 See_Comment [Automat ed message] The Bands) system which ge nerated this result transmit odilia reference range : <=11.0. The reference r tanner was not used to interpr et this result as eric l/abnormal. [facility] KlebergTnleiozGKVTZQKRXA1386-88-19 06:22:00 Test Item Value Reference Range Interpretation Comments Polychrom (test code = Moderate *ABN*(10/13/14 Polychrom) 1:22 AM) [facility] KlebergUmsmielXTYOHOTOFT5760-10-55 06:22:00 Test Item Value Reference Range Interpretation Comments Target Cell (test code = Target Cell) Slight [facility] KlebergQiclsclSBWDFTGXAM5636-99-08 06:22:00 Test Item Value Reference Range Interpretation Comments Plt Morph (test code = Normal (10/13/14 1:22 Plt Morph) AM) [facility] KlebergRuhpufvKXGBWKHHLM6930-42-69 06:22:00 Test Item Value Reference Range Interpretation Comments Anisocyte (test code = 1+ *ABN*(10/13/14 Anisocyte) 1:22 AM) [facility] KlebergNgteajxOCFMZJJOBL9313-32-98 06:22:00 Test Item Value Reference Range Interpretation Comments Atypical Lymphs (test code = Atypical 1.0 Lymphs) [facility]hamKublkgvSSCSGFORJJ2656-14-41 06:22:00 Test Item Value Reference Range Interpretation Comments Basophils # (test code 0.4 See_Comment [Aut omated message] The = Basophils #) system which generated this result tra nsmitted reference range : <=0.2. The reference r tanner was not used to int erpret this result as normal/abnormal . [facility] LakeVOYAAAT[facility] ST[facility] [id number] 06:22:00 Test Item Value Reference Range Interpretation Comments ALT (test code = ALT) 12 See_Comment [Auto mated message] The system which ge nerated this result transmit odilia reference range : <=65. The reference range was not used to interpr et this result as eric l/abnormal. [facility] LakeVOYAAATRI[facility] HEALTH STEELE [id number] 06:22:00 Test Item Value Reference Range Interpretation Comments Albumin Lvl (test code = Albumin Lvl) 1.4 3.5-5.0 [facility] LakeVOYAAATRI[facility] HEALTH STEELE [id number] 06:22:00 Test Item Value Reference Range Interpretation Comments Total Protein (test code = Total 6.8 6.4-8.4 Protein) [facility] LakeVOYAAATRIUM HEALTH STEELE [id number] 06:22:00 Test Item Value Reference Range Interpretation Comments AST (test code = AST) 18 See_Comment [Auto mated message] The system which ge nerated this result transmit odilia reference range : <=37. The reference range was not used to interpr et this result as eric l/abnormal. [facility] LakeGaudena [id number] 06:22:00 Test Item Value Reference Range Interpretation Comments Bili Total (test code = Bili Total) 0.8 0.2-1.3 [facility] LakeGaudena [id number] 06:22:00 Test Item Value Reference Range Interpretation Comments Alk Phos (test code = Alk Phos) 101 39-136 [facility] LakeGaud[facility] [id number] 06:22:00 Test Item Value Reference Range Interpretation Comments A/G Ratio (test code = A/G Ratio) 0.3 0.7-1.6 [facility] LakeGaudena [id number] 06:22:00 Test Item Value Reference Range Interpretation Comments Globulin (test code = Globulin) 5.4 2.0-4.0 [facility]Wilson [facility] [id number] 06:22:00 Test Item Value Reference Range Interpretation Comments B/C Ratio (test code = B/C Ratio) 16 6-25 [facility] [id number] 06:22:00 Test Item Value Reference Range Interpretation Comments Lactic Acid Lvl (test code = Lactic 1.0 0.5-2.2 Acid Lvl) [facility]bergZkusuhpGZCECEFPKQ7641-14-90 06:22:00 Test Item Value Reference Range Interpretation Comments Bands (test code = 1.0 See_Comment [Automat ed message] The Bands) system which ge nerated this result transmit odilia reference range : <=11.0. The reference r tanner was not used to interpr et this result as eric l/abnormal. [facility] KlebergQtovzsnMLRNUWBQNY4425-93-82 06:22:00 Test Item Value Reference Range Interpretation Comments Polychrom (test code = Moderate *ABN*(10/13/14 Polychrom) 1:22 AM) [facility] KlebergGrlfvlaSEJTDJDNHR3778-30-42 06:22:00 Test Item Value Reference Range Interpretation Comments Target Cell (test code = Target Cell) Slight [facility] KlebergOsmxmcnLRHWOMIGGZ9473-65-50 06:22:00 Test Item Value Reference Range Interpretation Comments Plt Morph (test code = Normal (10/13/14 1:22 Plt Morph) AM) [facility] KlebergKbgahzlKLEWUGVZIN5134-49-78 06:22:00 Test Item Value Reference Range Interpretation Comments Anisocyte (test code = 1+ *ABN*(10/13/14 Anisocyte) 1:22 AM) [facility] KlebergQmhnadkDJMWMSHGLG8081-67-55 06:22:00 Test Item Value Reference Range Interpretation Comments Atypical Lymphs (test code = Atypical 1.0 Lymphs) [facility] KlebergLurnkacHDDLRILLIY5810-85-23 06:22:00 Test Item Value Reference Range Interpretation Comments Basophils # (test code 0.4 See_Comment [Aut omated message] The = Basophils #) system which generated this result tra nsmitted reference range : <=0.2. The reference r tanner was not used to int erpret this result as normal/abnormal . [facility] KlebergPcrapvvSLQETTGIFK0700-08-09 10:21:00 Test Item Value Reference Range Interpretation Comments RBC (test code = RBC) 2.26 4.70-6.10 [facility] KlebergZcanayhWNEKBNNWTQ8437-28-48 10:21:00 Test Item Value Reference Range Interpretation Comments MCHC (test code = MCHC) 31.6 32.0-36.0 [facility] KlebergZxmrjzuECTHDGMYMT2576-47-96 10:21:00 Test Item Value Reference Range Interpretation Comments MPV (test code = MPV) 6.5 7.4-10.4 [facility] KlebergQtwwxysLNUHJCCAWF7575-21-84 10:21:00 Test Item Value Reference Range Interpretation Comments Platelet (test code = Platelet) 1041 133-450 [facility] KlebergWhnmsreYQRMDMAKGK5199-49-28 10:21:00 Test Item Value Reference Range Interpretation Comments RDW (test code = RDW) 16.7 11.5-14.5 [facility] KlebergBtxxpceOBDESQTOHC4144-22-17 10:21:00 Test Item Value Reference Range Interpretation Comments MCV (test code = MCV) 90.2 80.0-94.0 [facility] KlebergSukuqlnXPBFKFCNJE9554-78-68 10:21:00 Test Item Value Reference Range Interpretation Comments MCH (test code = MCH) 28.5 pg 27.0-31.0 [facility] KlebergRlezrtqWDPLGVVJVO8289-44-81 10:21:00 Test Item Value Reference Range Interpretation Comments Hgb (test code = Hgb) 6.4 14.0-18.0 [facility] KlebergRaarhgjNIGBZZWGZI9153-04-00 10:21:00 Test Item Value Reference Range Interpretation Comments Hct (test code = Hct) 20.4 42.0-54.0 [facility] KlebergZdpnqgeCEBRGUHWVL0304-29-28 10:21:00 Test Item Value Reference Range Interpretation Comments WBC (test code = WBC) 12.0 3.7-10.4 [facility] KlebergRdvablvURXGVGRHJT3199-86-04 10:21:00 Test Item Value Reference Range Interpretation Comments Basophils # (test code 0.1 See_Comment [Aut omated message] The = Basophils #) system which generated this result tra nsmitted reference range : <=0.2. The reference r tanner was not used to int erpret this result as normal/abnormal . [facility] KlebergMntiqvlHRSVBAHNSI1382-68-31 10:21:00 Test Item Value Reference Range Interpretation Comments Eosinophils # (test code 0.2 See_Comment [A utomated message] The = Eosinophils #) system whic h generated this result tra nsmitted reference range : <=0.5. The reference r tanner was not used to int erpret this result as normal/abnormal . [facility] KlebergAnvuzinGWGZLBVDSN3679-65-45 10:21:00 Test Item Value Reference Range Interpretation Comments Lymphocytes # (test code = Lymphocytes 1.3 1.0-5.5 #) [facility] KlebergCfskaazMRNUTZBCYW4969-99-22 10:21:00 Test Item Value Reference Range Interpretation Comments Segs-Bands # (test code = Segs-Bands #) 9.3 1.5-8.1 [facility] KlebergRieeglyORSTUZLZWT0550-73-52 10:21:00 Test Item Value Reference Range Interpretation Comments Monocytes # (test code 1.2 See_Comment [Aut omated message] The = Monocytes #) system which generated this result tra nsmitted reference range : <=0.8. The reference r tanner was not used to int erpret this result as normal/abnormal . [facility] KlebergNpdiaekTDIQYBRLLP7829-65-86 10:21:00 Test Item Value Reference Range Interpretation Comments Basophils (test code = 0.5 See_Comment [Aut omated message] The Basophils) system which ge nerated this result tra nsmitted reference range : <=1.0. The reference r tanner was not used to int erpret this result as normal/abnormal . [facility] KlebergFklpxxxTCJSKRFZDG2504-78-72 10:21:00 Test Item Value Reference Range Interpretation Comments Eosinophils (test code = 1.8 See_Comment [A utomated message] The Eosinophils) system which ge nerated this result tra nsmitted reference range : <=4.0. The reference r tanner was not used to int erpret this result as normal/abnormal . [facility] KlebergBfopjbyUZJUYHBIDS9150-55-66 10:21:00 Test Item Value Reference Range Interpretation Comments Monocytes (test code = Monocytes) 9.6 2.0-12.0 [facility] KlebergQqiaftrQSKYORSCPZ2078-09-15 10:21:00 Test Item Value Reference Range Interpretation Comments Lymphocytes (test code = Lymphocytes) 11.1 20.0-40.0 [facility] KlebergYybcstuWXCHUZBRFG9110-52-86 10:21:00 Test Item Value Reference Range Interpretation Comments Segs (test code = Segs) 77.0 45.0-75.0 [facility] KlebergJwomrjeOJJMLDGISW2451-88-42 10:21:00 Test Item Value Reference Range Interpretation Comments RBC (test code = RBC) 2.26 4.70-6.10 [facility] KlebergHeludwiBGNIYPLUVE4132-58-85 10:21:00 Test Item Value Reference Range Interpretation Comments MCHC (test code = MCHC) 31.6 32.0-36.0 [facility] KlebergRyzokefKIUGYCMIEW0460-77-66 10:21:00 Test Item Value Reference Range Interpretation Comments MPV (test code = MPV) 6.5 7.4-10.4 [facility] KlebergIgxzromDHLVRLAUGA4097-52-18 10:21:00 Test Item Value Reference Range Interpretation Comments Platelet (test code = Platelet) 1041 133-450 [facility] KlebergKwrasuaOSXQYZZWVB2551-27-29 10:21:00 Test Item Value Reference Range Interpretation Comments RDW (test code = RDW) 16.7 11.5-14.5 [facility] KlebergSvmohaeJNBKBZZJYD5406-88-16 10:21:00 Test Item Value Reference Range Interpretation Comments MCV (test code = MCV) 90.2 80.0-94.0 [facility] KlebergQrlkjimUJGJQBQAMN4548-88-55 10:21:00 Test Item Value Reference Range Interpretation Comments MCH (test code = MCH) 28.5 pg 27.0-31.0 [facility] KlebergQuygukoWJPLOMGNGQ7346-84-45 10:21:00 Test Item Value Reference Range Interpretation Comments Hgb (test code = Hgb) 6.4 14.0-18.0 [facility] KlebergFbwtqkjKEMYCUZLVD3333-92-75 10:21:00 Test Item Value Reference Range Interpretation Comments Hct (test code = Hct) 20.4 42.0-54.0 [facility] KlebergZfhxddwZFAZGMSXCB8774-03-52 10:21:00 Test Item Value Reference Range Interpretation Comments WBC (test code = WBC) 12.0 3.7-10.4 [facility] KlebergFgdvizbFKAIHNXBLT8972-97-64 10:21:00 Test Item Value Reference Range Interpretation Comments Basophils # (test code 0.1 See_Comment [Aut omated message] The = Basophils #) system which generated this result tra nsmitted reference range : <=0.2. The reference r tanner was not used to int erpret this result as normal/abnormal . [facility] KlebergCntifbyNFNVHNDRJP7527-75-50 10:21:00 Test Item Value Reference Range Interpretation Comments Eosinophils # (test code 0.2 See_Comment [A utomated message] The = Eosinophils #) system whic h generated this result tra nsmitted reference range : <=0.5. The reference r tanner was not used to int erpret this result as normal/abnormal . [facility] KlebergDztdejyPLKKQROYSU8663-53-06 10:21:00 Test Item Value Reference Range Interpretation Comments Lymphocytes # (test code = Lymphocytes 1.3 1.0-5.5 #) [facility] KlebergTxtqinwBCTWWQBGII6334-28-40 10:21:00 Test Item Value Reference Range Interpretation Comments Segs-Bands # (test code = Segs-Bands #) 9.3 1.5-8.1 [facility] KlebergOburzlsPAAXTVABVI4737-42-98 10:21:00 Test Item Value Reference Range Interpretation Comments Monocytes # (test code 1.2 See_Comment [Aut omated message] The = Monocytes #) system which generated this result tra nsmitted reference range : <=0.8. The reference r tanner was not used to int erpret this result as normal/abnormal . [facility] KlebergEteqjruVMSVWQILUO1672-02-03 10:21:00 Test Item Value Reference Range Interpretation Comments Basophils (test code = 0.5 See_Comment [Aut omated message] The Basophils) system which ge nerated this result tra nsmitted reference range : <=1.0. The reference r tanner was not used to int erpret this result as normal/abnormal . [facility] KlebergHqmalybLBXWVHCQPQ9477-77-47 10:21:00 Test Item Value Reference Range Interpretation Comments Eosinophils (test code = 1.8 See_Comment [A utomated message] The Eosinophils) system which ge nerated this result tra nsmitted reference range : <=4.0. The reference r tanner was not used to int erpret this result as normal/abnormal . [facility] KlebergSvnnxzvQQDPNODFUZ0443-34-06 10:21:00 Test Item Value Reference Range Interpretation Comments Monocytes (test code = Monocytes) 9.6 2.0-12.0 [facility] KlebergGlzvxpmNKISXSAVXO3836-04-72 10:21:00 Test Item Value Reference Range Interpretation Comments Lymphocytes (test code = Lymphocytes) 11.1 20.0-40.0 [facility] KlebergLbdvdmaPIZZKPWGLM0666-61-37 10:21:00 Test Item Value Reference Range Interpretation Comments Segs (test code = Segs) 77.0 45.0-75.0 [facility] KlebergMlmhxpyKDNARHFRTM1820-18-27 10:22:00 Test Item Value Reference Range Interpretation Comments Basophils # (test code 0.1 See_Comment [Aut omated message] The = Basophils #) system which generated this result tra nsmitted reference range : <=0.2. The reference r tanner was not used to int erpret this result as normal/abnormal . [facility] KlebergKopttetPWGNPZUMHG5150-59-48 10:22:00 Test Item Value Reference Range Interpretation Comments Monocytes # (test code 1.1 See_Comment [Aut omated message] The = Monocytes #) system which generated this result tra nsmitted reference range : <=0.8. The reference r tanner was not used to int erpret this result as normal/abnormal . [facility] KlebergLzklhllFUXTRYGIGP5963-36-52 10:22:00 Test Item Value Reference Range Interpretation Comments Eosinophils # (test code 0.2 See_Comment [A utomated message] The = Eosinophils #) system whic h generated this result tra nsmitted reference range : <=0.5. The reference r tanner was not used to int erpret this result as normal/abnormal . [facility] KlebergTlcffipQDJSQECMGT3501-54-71 10:22:00 Test Item Value Reference Range Interpretation Comments Eosinophils (test code = 1.6 See_Comment [A utomated message] The Eosinophils) system which ge nerated this result tra nsmitted reference range : <=4.0. The reference r tanner was not used to int erpret this result as normal/abnormal . [facility] KlebergAucsoeaNEOZONACQN2989-50-81 10:22:00 Test Item Value Reference Range Interpretation Comments Lymphocytes (test code = Lymphocytes) 8.7 20.0-40.0 [facility] KlebergFdvcivgHCSNIWCNOZ6755-96-28 10:22:00 Test Item Value Reference Range Interpretation Comments Segs (test code = Segs) 81.5 45.0-75.0 [facility] KlebergObjdehyXLIERADGEA8234-84-21 10:22:00 Test Item Value Reference Range Interpretation Comments Lymphocytes # (test code = Lymphocytes 1.2 1.0-5.5 #) [facility] KlebergXsrbjduGVDDPNFJTQ8782-87-76 10:22:00 Test Item Value Reference Range Interpretation Comments Monocytes (test code = Monocytes) 7.7 2.0-12.0 [facility] KlebergPxeiwsxRKNADSOLHR9396-39-39 10:22:00 Test Item Value Reference Range Interpretation Comments Segs-Bands # (test code = Segs-Bands #) 11.3 1.5-8.1 [facility] KlebergZzqosruMKZJLETNZR7753-26-27 10:22:00 Test Item Value Reference Range Interpretation Comments Basophils (test code = 0.5 See_Comment [Aut omated message] The Basophils) system which ge nerated this result tra nsmitted reference range : <=1.0. The reference r tanner was not used to int erpret this result as normal/abnormal . [facility] KlebergAjnnseqWEIQVUABUD5149-29-69 10:22:00 Test Item Value Reference Range Interpretation Comments MCV (test code = MCV) 89.7 80.0-94.0 [facility] KlebergOciuqchRRDIEEGRZN4892-95-26 10:22:00 Test Item Value Reference Range Interpretation Comments Hgb (test code = Hgb) 6.6 14.0-18.0 [facility] KlebergJurltvvTOSORRSIBS6668-47-19 10:22:00 Test Item Value Reference Range Interpretation Comments MCH (test code = MCH) 28.0 pg 27.0-31.0 [facility] KlebergCpdestyMYOWEIXVOW8673-33-00 10:22:00 Test Item Value Reference Range Interpretation Comments MCHC (test code = MCHC) 31.2 32.0-36.0 [facility] KlebergDqheejaMLTKEZKTWC7864-98-55 10:22:00 Test Item Value Reference Range Interpretation Comments RBC (test code = RBC) 2.35 4.70-6.10 [facility] KlebergZwrumbvAHCRVVBVAJ6393-83-77 10:22:00 Test Item Value Reference Range Interpretation Comments WBC (test code = WBC) 13.8 3.7-10.4 [facility] KlebergIhrypryTGCIMGMXSB7284-75-69 10:22:00 Test Item Value Reference Range Interpretation Comments MPV (test code = MPV) 6.9 7.4-10.4 [facility] KlebergTyjabepKYOIWPXDGO2501-61-44 10:22:00 Test Item Value Reference Range Interpretation Comments Hct (test code = Hct) 21.1 42.0-54.0 [facility] KlebergJrmzvrrZLKTETLMTG3406-73-04 10:22:00 Test Item Value Reference Range Interpretation Comments RDW (test code = RDW) 17.0 11.5-14.5 [facility] KlebergYoksfecXSPLIUOFXF8061-81-06 10:22:00 Test Item Value Reference Range Interpretation Comments Platelet (test code = Platelet) 1025 436-450 [facility] KlebergQdyyrdgKOPAESITLO1291-96-99 10:22:00 Test Item Value Reference Range Interpretation Comments Basophils # (test code 0.1 See_Comment [Aut omated message] The = Basophils #) system which generated this result tra nsmitted reference range : <=0.2. The reference r tanner was not used to int erpret this result as normal/abnormal . [facility] KlebergWqdwbplGEYTKFGTZC9360-29-00 10:22:00 Test Item Value Reference Range Interpretation Comments Monocytes # (test code 1.1 See_Comment [Aut omated message] The = Monocytes #) system which generated this result tra nsmitted reference range : <=0.8. The reference r tanner was not used to int erpret this result as normal/abnormal . [facility] KlebergXufexvaHDCYGOAEJB3552-59-72 10:22:00 Test Item Value Reference Range Interpretation Comments Eosinophils # (test code 0.2 See_Comment [A utomated message] The = Eosinophils #) system whic h generated this result tra nsmitted reference range : <=0.5. The reference r tanner was not used to int erpret this result as normal/abnormal . [facility] KlebergNzgccryZRHBKSROWJ2458-72-34 10:22:00 Test Item Value Reference Range Interpretation Comments Eosinophils (test code = 1.6 See_Comment [A utomated message] The Eosinophils) system which ge nerated this result tra nsmitted reference range : <=4.0. The reference r tanner was not used to int erpret this result as normal/abnormal . [facility] KlebergBpbfulyJMAIZNRRVA7605-60-36 10:22:00 Test Item Value Reference Range Interpretation Comments Lymphocytes (test code = Lymphocytes) 8.7 20.0-40.0 [facility] KlebergRsbtxrkBRMEZTAMBV6190-43-70 10:22:00 Test Item Value Reference Range Interpretation Comments Segs (test code = Segs) 81.5 45.0-75.0 [facility] KlebergIduufpmSUDYINXASN3356-33-38 10:22:00 Test Item Value Reference Range Interpretation Comments Lymphocytes # (test code = Lymphocytes 1.2 1.0-5.5 #) [facility] KlebergFzrazssKTCNSHGZEM1534-93-20 10:22:00 Test Item Value Reference Range Interpretation Comments Monocytes (test code = Monocytes) 7.7 2.0-12.0 [facility] KlebergXwcvkalFIOOJRECVG1155-87-25 10:22:00 Test Item Value Reference Range Interpretation Comments Segs-Bands # (test code = Segs-Bands #) 11.3 1.5-8.1 [facility] KlebergXbqjyzpYJYSXUQNFN3244-04-20 10:22:00 Test Item Value Reference Range Interpretation Comments Basophils (test code = 0.5 See_Comment [Aut omated message] The Basophils) system which ge nerated this result tra nsmitted reference range : <=1.0. The reference r tanner was not used to int erpret this result as normal/abnormal . [facility] KlebergGaykwrwHSVTTRGBRZ9847-96-68 10:22:00 Test Item Value Reference Range Interpretation Comments MCV (test code = MCV) 89.7 80.0-94.0 [facility] KlebergDpapbkhJIBBXZNHTL1098-85-88 10:22:00 Test Item Value Reference Range Interpretation Comments Hgb (test code = Hgb) 6.6 14.0-18.0 [facility] KlebergMarpuzbGLPYGNGNDH2624-99-05 10:22:00 Test Item Value Reference Range Interpretation Comments MCH (test code = MCH) 28.0 pg 27.0-31.0 [facility] KlebergCyuginyMEZKXULWTW4734-61-13 10:22:00 Test Item Value Reference Range Interpretation Comments MCHC (test code = MCHC) 31.2 32.0-36.0 [facility] KlebergYjztpfhKALFKSGZVG9139-95-47 10:22:00 Test Item Value Reference Range Interpretation Comments RBC (test code = RBC) 2.35 4.70-6.10 [facility] KlebergVewlwgwMCFHJGMWTL6294-37-86 10:22:00 Test Item Value Reference Range Interpretation Comments WBC (test code = WBC) 13.8 3.7-10.4 [facility] KlebergZehhckeCIYXYPTDVN4887-56-06 10:22:00 Test Item Value Reference Range Interpretation Comments MPV (test code = MPV) 6.9 7.4-10.4 [facility] KlebergNtbeycrDZQSWGTLAL8731-24-54 10:22:00 Test Item Value Reference Range Interpretation Comments Hct (test code = Hct) 21.1 42.0-54.0 [facility] KlebergDxudllbHPLPSEHULE1797-27-97 10:22:00 Test Item Value Reference Range Interpretation Comments RDW (test code = RDW) 17.0 11.5-14.5 [facility] KlebergOlhuqxiCWMHKQVXVB6008-42-84 10:22:00 Test Item Value Reference Range Interpretation Comments Platelet (test code = Platelet) 1025 299-950 [facility] KlebergLfkpcmqUYOQNOMMVV3209-27-37 08:16:00 Test Item Value Reference Range Interpretation Comments RDW (test code = RDW) 16.9 11.5-14.5 [facility] KlebergMoobzrlHMLKYEBCOC8308-65-43 08:16:00 Test Item Value Reference Range Interpretation Comments MCHC (test code = MCHC) 31.3 32.0-36.0 [facility] KlebergOcfwwhjHLYZPSECMQ9964-07-25 08:16:00 Test Item Value Reference Range Interpretation Comments Platelet (test code = Platelet) 836 151-548 [facility] KlebergQsdpswgOTEUEQMPYU0461-21-15 08:16:00 Test Item Value Reference Range Interpretation Comments MPV (test code = MPV) 6.9 7.4-10.4 [facility] KlebergIaxioswJQQMFDOASB0608-63-84 08:16:00 Test Item Value Reference Range Interpretation Comments MCH (test code = MCH) 28.3 pg 27.0-31.0 [facility] KlebergJxxthdbAASBEJMDFE0848-09-50 08:16:00 Test Item Value Reference Range Interpretation Comments RBC (test code = RBC) 2.71 4.70-6.10 [facility] KlebergLfacdaqJFKUVRQEEW2124-02-81 08:16:00 Test Item Value Reference Range Interpretation Comments Hgb (test code = Hgb) 7.7 14.0-18.0 [facility] KlebergPwrusmqMQVIJAWXTT2321-54-87 08:16:00 Test Item Value Reference Range Interpretation Comments Hct (test code = Hct) 24.5 42.0-54.0 [facility] KlebergOxtszwxVRKMERVFVB5890-56-80 08:16:00 Test Item Value Reference Range Interpretation Comments MCV (test code = MCV) 90.6 80.0-94.0 [facility] KlebergCzyyvklJNGFUFFXUJ6771-60-91 08:16:00 Test Item Value Reference Range Interpretation Comments WBC (test code = WBC) 15.3 3.7-10.4 [facility] KlebergNrzkcocNXEOVNIDTW9654-87-71 08:16:00 Test Item Value Reference Range Interpretation Comments RDW (test code = RDW) 16.9 11.5-14.5 [facility] KlebergAoysgwoCDFIMVMZUR9992-66-75 08:16:00 Test Item Value Reference Range Interpretation Comments MCHC (test code = MCHC) 31.3 32.0-36.0 [facility] KlebergClaabyvAXWWZNOPMJ2405-20-48 08:16:00 Test Item Value Reference Range Interpretation Comments Platelet (test code = Platelet) 906 341-450 [facility] KlebergNonlykaGBYVHUEYLH7417-85-55 08:16:00 Test Item Value Reference Range Interpretation Comments MPV (test code = MPV) 6.9 7.4-10.4 [facility] KlebergNwpehwjWRQAMVLSVQ6036-83-75 08:16:00 Test Item Value Reference Range Interpretation Comments MCH (test code = MCH) 28.3 pg 27.0-31.0 [facility] KlebergHdbpmelZHRHLMUJFZ4006-65-10 08:16:00 Test Item Value Reference Range Interpretation Comments RBC (test code = RBC) 2.71 4.70-6.10 [facility] KlebergZsujytkOBUOTIIIYK9286-68-81 08:16:00 Test Item Value Reference Range Interpretation Comments Hgb (test code = Hgb) 7.7 14.0-18.0 [facility] KlebergPyuslqvYGCREVGEES9602-60-73 08:16:00 Test Item Value Reference Range Interpretation Comments Hct (test code = Hct) 24.5 42.0-54.0 [facility] KlebergNnswkkaKRHYYGDHDL7192-86-57 08:16:00 Test Item Value Reference Range Interpretation Comments MCV (test code = MCV) 90.6 80.0-94.0 [facility] KlebergBqylfadNAFLSSWVTA1374-48-16 08:16:00 Test Item Value Reference Range Interpretation Comments WBC (test code = WBC) 15.3 3.7-10.4 [facility]2015-04-24 10:22:00 Test Item Value Reference Range Interpretation Comments Phosphorus (test code = Phosphorus) 2.8 2.5-4.5 [facility]2015-04-24 10:22:00 Test Item Value Reference Range Interpretation Comments Magnesium Lvl (test code = Magnesium 2.0 1.8-2.4 Lvl) [facility]2015-04-24 10:22:00 Test Item Value Reference Range Interpretation Comments Glucose Lvl (test code = Glucose Lvl) 139 70-99 [facility]2015-04-24 10:22:00 Test Item Value Reference Range Interpretation Comments BUN (test code = BUN) 15 7-22 [facility]2015-04-24 10:22:00 Test Item Value Reference Range Interpretation Comments eGFR (test code = eGFR) 96 [facility]2015-04-24 10:22:00 Test Item Value Reference Range Interpretation Comments CO2 (test code = CO2) 27 24-32 [facility]2015-04-24 10:22:00 Test Item Value Reference Range Interpretation Comments Calcium Lvl (test code = Calcium Lvl) 7.6 8.5-10.5 [facility]2015-04-24 10:22:00 Test Item Value Reference Range Interpretation Comments Sodium Lvl (test code = Sodium Lvl) 140 135-145 [facility]2015-04-24 10:22:00 Test Item Value Reference Range Interpretation Comments Creatinine Lvl (test code = Creatinine 0.8 0.5-1.4 Lvl) [facility]2015-04-24 10:22:00 Test Item Value Reference Range Interpretation Comments Chloride Lvl (test code = Chloride Lvl) 105 95-109 [facility]2015-04-24 10:22:00 Test Item Value Reference Range Interpretation Comments Potassium Lvl (test code = Potassium 4.2 3.5-5.1 Lvl) [facility]2015-04-24 10:22:00 Test Item Value Reference Range Interpretation Comments AGAP (test code = AGAP) 12.2 10.0-20.0 [id number] 10:22:00 Test Item Value Reference Range Interpretation Comments Monocytes # (test code 0.9 See_Comment [Aut omated message] The = Monocytes #) system which generated this result tra nsmitted reference range : <=0.8. The reference r tanner was not used to int erpret this result as normal/abnormal . [facility]be[id number] 10:22:00 Test Item Value Reference Range Interpretation Comments Basophils # (test code 0.1 See_Comment [Aut omated message] The = Basophils #) system which generated this result tra nsmitted reference range : <=0.2. The reference r tanner was not used to int erpret this result as normal/abnormal . [facility]bergUklzlxiAIWSXLJLZU1404-13-37 10:22:00 Test Item Value Reference Range Interpretation Comments Eosinophils # (test code 0.2 See_Comment [A utomated message] The = Eosinophils #) system the medical center h generated this result tra nsmitted reference range : <=0.5. The reference r tanner was not used to int erpret this result as normal/abnormal . [facility] KlebergWuilbppDOSZBPBPNP7523-56-83 10:22:00 Test Item Value Reference Range Interpretation Comments Lymphocytes # (test code = Lymphocytes 1.3 1.0-5.5 #) [facility]bergTxtttmtRATLVOVHIN3062-26-37 10:22:00 Test Item Value Reference Range Interpretation Comments Segs (test code = Segs) 81.1 45.0-75.0 [facility] KlebergEqzjueiSCEQTONSLB8348-53-49 10:22:00 Test Item Value Reference Range Interpretation Comments Lymphocytes (test code = Lymphocytes) 10.1 20.0-40.0 [facility] KlebergSrrmllvUQHVDRCRAF7906-93-34 10:22:00 Test Item Value Reference Range Interpretation Comments Monocytes (test code = Monocytes) 6.7 2.0-12.0 [facility] KlebergHacuqjbRYRGTCHIBV1488-92-70 10:22:00 Test Item Value Reference Range Interpretation Comments Eosinophils (test code = 1.5 See_Comment [A utomated message] The Eosinophils) system which ge nerated this result tra nsmitted reference range : <=4.0. The reference r tanner was not used to int erpret this result as normal/abnormal . [facility] Klebe[id number] 10:22:00 Test Item Value Reference Range Interpretation Comments Basophils (test code = 0.6 See_Comment [Aut omated message] The Basophils) system which ge nerated this result tra nsmitted reference range : <=1.0. The reference r tanner was not used to int erpret this result as normal/abnormal . [facility] KlebergNjvirghQEWOZDLGHR9902-84-67 10:22:00 Test Item Value Reference Range Interpretation Comments Segs-Bands # (test code = Segs-Bands #) 10.3 1.5-8.1 [facility]2015-04-24 10:22:00 Test Item Value Reference Range Interpretation Comments Phosphorus (test code = Phosphorus) 2.8 2.5-4.5 [facility]2015-04-24 10:22:00 Test Item Value Reference Range Interpretation Comments Magnesium Lvl (test code = Magnesium 2.0 1.8-2.4 Lvl) [facility]2015-04-24 10:22:00 Test Item Value Reference Range Interpretation Comments Glucose Lvl (test code = Glucose Lvl) 139 70-99 [facility]2015-04-24 10:22:00 Test Item Value Reference Range Interpretation Comments BUN (test code = BUN) 15 7-22 [facility]2015-04-24 10:22:00 Test Item Value Reference Range Interpretation Comments eGFR (test code = eGFR) 96 [facility]2015-04-24 10:22:00 Test Item Value Reference Range Interpretation Comments CO2 (test code = CO2) 27 24-32 [facility]2015-04-24 10:22:00 Test Item Value Reference Range Interpretation Comments Calcium Lvl (test code = Calcium Lvl) 7.6 8.5-10.5 [facility]2015-04-24 10:22:00 Test Item Value Reference Range Interpretation Comments Sodium Lvl (test code = Sodium Lvl) 140 135-145 [facility]2015-04-24 10:22:00 Test Item Value Reference Range Interpretation Comments Creatinine Lvl (test code = Creatinine 0.8 0.5-1.4 Lvl) [facility]2015-04-24 10:22:00 Test Item Value Reference Range Interpretation Comments Chloride Lvl (test code = Chloride Lvl) 105 95-109 [facility]2015-04-24 10:22:00 Test Item Value Reference Range Interpretation Comments Potassium Lvl (test code = Potassium 4.2 3.5-5.1 Lvl) [facility]2015-04-24 10:22:00 Test Item Value Reference Range Interpretation Comments AGAP (test code = AGAP) 12.2 10.0-20.0 [id number] 10:22:00 Test Item Value Reference Range Interpretation Comments Monocytes # (test code 0.9 See_Comment [Aut omated message] The = Monocytes #) system which generated this result tra nsmitted reference range : <=0.8. The reference r tanner was not used to int erpret this result as normal/abnormal . [facility] KlebergLqvhqumJPOGHARZHM0648-51-02 10:22:00 Test Item Value Reference Range Interpretation Comments Basophils # (test code 0.1 See_Comment [Aut omated message] The = Basophils #) system which generated this result tra nsmitted reference range : <=0.2. The reference r tanner was not used to int erpret this result as normal/abnormal . [facility] KlebergQyhlyitDNLDXUCQIH2733-60-75 10:22:00 Test Item Value Reference Range Interpretation Comments Eosinophils # (test code 0.2 See_Comment [A utomated message] The = Eosinophils #) system whic h generated this result tra nsmitted reference range : <=0.5. The reference r tanner was not used to int erpret this result as normal/abnormal . [facility] KlebergFgffutnHHVZTDCXEC2449-98-35 10:22:00 Test Item Value Reference Range Interpretation Comments Lymphocytes # (test code = Lymphocytes 1.3 1.0-5.5 #) [facility] KlebergLxycnohJWCZZIVGJX1835-65-82 10:22:00 Test Item Value Reference Range Interpretation Comments Segs (test code = Segs) 81.1 45.0-75.0 [facility] KlebergIhofnwnHOQIVCVBAN5711-16-92 10:22:00 Test Item Value Reference Range Interpretation Comments Lymphocytes (test code = Lymphocytes) 10.1 20.0-40.0 [facility] KlebergOlakhgpRWLOXAGZYM3572-24-46 10:22:00 Test Item Value Reference Range Interpretation Comments Monocytes (test code = Monocytes) 6.7 2.0-12.0 [facility] KlebergOgcctgkUNPABUZWQV0922-65-48 10:22:00 Test Item Value Reference Range Interpretation Comments Eosinophils (test code = 1.5 See_Comment [A utomated message] The Eosinophils) system which ge nerated this result tra nsmitted reference range : <=4.0. The reference r tanner was not used to int erpret this result as normal/abnormal . [facility] KlebergDwcjjyoZECHLZXSCH3631-23-64 10:22:00 Test Item Value Reference Range Interpretation Comments Basophils (test code = 0.6 See_Comment [Aut omated message] The Basophils) system which ge nerated this result tra nsmitted reference range : <=1.0. The reference r tanner was not used to int erpret this result as normal/abnormal . [facility] KlebergRnmhjnyWZOKTHSDSF7855-08-68 10:22:00 Test Item Value Reference Range Interpretation Comments Segs-Bands # (test code = Segs-Bands #) 10.3 1.5-8.1 [facility]2015-04-23 10:49:00 Test Item Value Reference Range Interpretation Comments eGFR (test code = eGFR) 96 [facility]2015-04-23 10:49:00 Test Item Value Reference Range Interpretation Comments Glucose Lvl (test code = Glucose Lvl) 150 70-99 [facility]2015-04-23 10:49:00 Test Item Value Reference Range Interpretation Comments BUN (test code = BUN) 13 7-22 [facility]2015-04-23 10:49:00 Test Item Value Reference Range Interpretation Comments Potassium Lvl (test code = Potassium 4.0 3.5-5.1 Lvl) [facility]2015-04-23 10:49:00 Test Item Value Reference Range Interpretation Comments CO2 (test code = CO2) 28 24-32 [facility]2015-04-23 10:49:00 Test Item Value Reference Range Interpretation Comments Sodium Lvl (test code = Sodium Lvl) 139 135-145 [facility]2015-04-23 10:49:00 Test Item Value Reference Range Interpretation Comments Chloride Lvl (test code = Chloride Lvl) 103 95-109 [facility]2015-04-23 10:49:00 Test Item Value Reference Range Interpretation Comments Calcium Lvl (test code = Calcium Lvl) 7.8 8.5-10.5 [facility]2015-04-23 10:49:00 Test Item Value Reference Range Interpretation Comments Creatinine Lvl (test code = Creatinine 0.8 0.5-1.4 Lvl) [facility]2015-04-23 10:49:00 Test Item Value Reference Range Interpretation Comments AGAP (test code = AGAP) 12.0 10.0-20.0 [facility]2015-04-23 10:49:00 Test Item Value Reference Range Interpretation Comments Magnesium Lvl (test code = Magnesium 2.1 1.8-2.4 Lvl) [facility]2015-04-23 10:49:00 Test Item Value Reference Range Interpretation Comments Phosphorus (test code = Phosphorus) 2.7 2.5-4.5 [facility]2015-04-23 10:49:00 Test Item Value Reference Range Interpretation Comments eGFR (test code = eGFR) 96 [facility]2015-04-23 10:49:00 Test Item Value Reference Range Interpretation Comments Glucose Lvl (test code = Glucose Lvl) 150 70-99 [facility]2015-04-23 10:49:00 Test Item Value Reference Range Interpretation Comments BUN (test code = BUN) 13 7-22 [facility]2015-04-23 10:49:00 Test Item Value Reference Range Interpretation Comments Potassium Lvl (test code = Potassium 4.0 3.5-5.1 Lvl) [facility]2015-04-23 10:49:00 Test Item Value Reference Range Interpretation Comments CO2 (test code = CO2) 28 24-32 [facility]2015-04-23 10:49:00 Test Item Value Reference Range Interpretation Comments Sodium Lvl (test code = Sodium Lvl) 139 135-145 [facility]2015-04-23 10:49:00 Test Item Value Reference Range Interpretation Comments Chloride Lvl (test code = Chloride Lvl) 103 95-109 [facility]2015-04-23 10:49:00 Test Item Value Reference Range Interpretation Comments Calcium Lvl (test code = Calcium Lvl) 7.8 8.5-10.5 [facility]2015-04-23 10:49:00 Test Item Value Reference Range Interpretation Comments Creatinine Lvl (test code = Creatinine 0.8 0.5-1.4 Lvl) [facility]2015-04-23 10:49:00 Test Item Value Reference Range Interpretation Comments AGAP (test code = AGAP) 12.0 10.0-20.0 [facility]2015-04-23 10:49:00 Test Item Value Reference Range Interpretation Comments Magnesium Lvl (test code = Magnesium 2.1 1.8-2.4 Lvl) [facility]2015-04-23 10:49:00 Test Item Value Reference Range Interpretation Comments Phosphorus (test code = Phosphorus) 2.7 2.5-4.5 [facility] AND [id number] 20:37:00 Test Item Value Reference Range Interpretation Comments Occult Bld Stl (test Negative (10/05/14 3:37 code = Occult Bld Stl) PM) [facility] AND [id number] 20:37:00 Test Item Value Reference Range Interpretation Comments Occult Bld Stl (test Negative (10/05/14 3:37 code = Occult Bld Stl) PM) [facility]2015-04-22 06:30:00 Test Item Value Reference Range Interpretation Comments Phosphorus (test code = Phosphorus) 1.9 2.5-4.5 [facility]2015-04-22 06:30:00 Test Item Value Reference Range Interpretation Comments eGFR (test code = eGFR) 91 [facility]2015-04-22 06:30:00 Test Item Value Reference Range Interpretation Comments AGAP (test code = AGAP) 15.3 10.0-20.0 [facility]2015-04-22 06:30:00 Test Item Value Reference Range Interpretation Comments Chloride Lvl (test code = Chloride Lvl) 104 95-109 [facility]2015-04-22 06:30:00 Test Item Value Reference Range Interpretation Comments CO2 (test code = CO2) 24 24-32 [facility]2015-04-22 06:30:00 Test Item Value Reference Range Interpretation Comments Sodium Lvl (test code = Sodium Lvl) 139 135-145 [facility]2015-04-22 06:30:00 Test Item Value Reference Range Interpretation Comments Potassium Lvl (test code = Potassium 4.3 3.5-5.1 Lvl) [facility]2015-04-22 06:30:00 Test Item Value Reference Range Interpretation Comments Calcium Lvl (test code = Calcium Lvl) 7.8 8.5-10.5 [facility]2015-04-22 06:30:00 Test Item Value Reference Range Interpretation Comments BUN (test code = BUN) 14 7-22 [facility]2015-04-22 06:30:00 Test Item Value Reference Range Interpretation Comments Creatinine Lvl (test code = Creatinine 0.9 0.5-1.4 Lvl) [facility]2015-04-22 06:30:00 Test Item Value Reference Range Interpretation Comments Glucose Lvl (test code = Glucose Lvl) 80 70-99 [facility]2015-04-22 06:30:00 Test Item Value Reference Range Interpretation Comments Magnesium Lvl (test code = Magnesium 1.8 1.8-2.4 Lvl) [facility] [id number] 06:30:00 Test Item Value Reference Range Interpretation Comments Ca Norm WB (test code = Ca Norm WB) 1.05 1.05-1.25 [facility] [id number] 06:30:00 Test Item Value Reference Range Interpretation Comments Ca Ion WB (test code = Ca Ion WB) 1.04 1.05-1.25 [facility]2015-04-22 06:30:00 Test Item Value Reference Range Interpretation Comments Phosphorus (test code = Phosphorus) 1.9 2.5-4.5 [facility]2015-04-22 06:30:00 Test Item Value Reference Range Interpretation Comments eGFR (test code = eGFR) 91 [facility]2015-04-22 06:30:00 Test Item Value Reference Range Interpretation Comments AGAP (test code = AGAP) 15.3 10.0-20.0 [facility]2015-04-22 06:30:00 Test Item Value Reference Range Interpretation Comments Chloride Lvl (test code = Chloride Lvl) 104 95-109 [facility]2015-04-22 06:30:00 Test Item Value Reference Range Interpretation Comments CO2 (test code = CO2) 24 24-32 [facility]2015-04-22 06:30:00 Test Item Value Reference Range Interpretation Comments Sodium Lvl (test code = Sodium Lvl) 139 135-145 [facility]2015-04-22 06:30:00 Test Item Value Reference Range Interpretation Comments Potassium Lvl (test code = Potassium 4.3 3.5-5.1 Lvl) [facility]2015-04-22 06:30:00 Test Item Value Reference Range Interpretation Comments Calcium Lvl (test code = Calcium Lvl) 7.8 8.5-10.5 [facility]2015-04-22 06:30:00 Test Item Value Reference Range Interpretation Comments BUN (test code = BUN) 14 7-22 [facility]2015-04-22 06:30:00 Test Item Value Reference Range Interpretation Comments Creatinine Lvl (test code = Creatinine 0.9 0.5-1.4 Lvl) [facility] [id number] 06:30:00 Test Item Value Reference Range Interpretation Comments Glucose Lvl (test code = Glucose Lvl) 80 70-99 [facility] [id number] 06:30:00 Test Item Value Reference Range Interpretation Comments Magnesium Lvl (test code = Magnesium 1.8 1.8-2.4 Lvl) [facility] [id number] 06:30:00 Test Item Value Reference Range Interpretation Comments Ca Norm WB (test code = Ca Norm WB) 1.05 1.05-1.25 [facility]2015-04-22 06:30:00 Test Item Value Reference Range Interpretation Comments Ca Ion WB (test code = Ca Ion WB) 1.04 1.05-1.25 [facility] CampusAppforma [facility] [id number] 14:54:00 Test Item Value Reference Range Interpretation Comments RBC product (test code Product available = RBC product) (10/04/14 9:54 AM) [facility] CampusApp[facility] BANK [id number] 14:54:00 Test Item Value Reference Range Interpretation Comments RBC product (test code Product available = RBC product) (10/04/14 9:54 AM) [facility]hamSky[facility] [id number] 09:42:00 Test Item Value Reference Range Interpretation Comments Antibody Scrn (test Negative (10/04/14 4:42 code = Antibody Scrn) AM) [facility]hamSky[facility] [id number] 09:42:00 Test Item Value Reference Range Interpretation Comments ABO/Rh (test code = ABO/Rh) B POS [facility] [employer] [id number] 09:42:00 Test Item Value Reference Range Interpretation Comments Antibody Scrn (test Negative (10/04/14 4:42 code = Antibody Scrn) AM) [facility] LakeMer[facility] [id number] 09:42:00 Test Item Value Reference Range Interpretation Comments ABO/Rh (test code = ABO/Rh) B POS [facility]hamStypi [id number] 16:16:00 Test Item Value Reference Range Interpretation Comments RBC product (test code Product available = RBC product) (10/02/14 11:16 AM) [facility] [id number] 16:16:00 Test Item Value Reference Range Interpretation Comments RBC product (test code Product available = RBC product) (10/02/14 11:16 AM) [facility] HermannPARATHYROID [id number] 05:47:00 Test Item Value Reference Range Interpretation Comments Ca Ion WB (test code = Ca Ion WB) 1.09 1.05-1.25 [facility] [id number] 05:47:00 Test Item Value Reference Range Interpretation Comments Ca Norm WB (test code = Ca Norm WB) 1.06 1.05-1.25 [facility] HermannPARATHYROID [id number] 05:47:00 Test Item Value Reference Range Interpretation Comments Ca Ion WB (test code = Ca Ion WB) 1.09 1.05-1.25 [facility] LakeannPARATHYROID [id number] 05:47:00 Test Item Value Reference Range Interpretation Comments Ca Norm WB (test code = Ca Norm WB) 1.06 1.05-1.25 [facility] [employer] [id number] 07:37:00 Test Item Value Reference Range Interpretation Comments CK MB Index (test 1.0 See_Comment [Automate d message] The code = CK MB Index) system w redIT generated this result transmit odilia reference range : <=2.5. The reference range was not used to interpr et this result as eric l/abnormal. [facility]annCARDIAC [id number] 07:37:00 Test Item Value Reference Range Interpretation Comments CK MB (test code = CK MB) 2.3 0.5-3.6 [facility] HermannCARDIAC [id number] 07:37:00 Test Item Value Reference Range Interpretation Comments Total CK (test code = Total CK) 226 12-191 [facility] HermannCARDIAC [id number] 07:37:00 Test Item Value Reference Range Interpretation Comments CK MB Index (test 1.0 See_Comment [Automate d message] The code = CK MB Index) system w redIT generated this result transmit odilia reference range : <=2.5. The reference range was not used to interpr et this result as eric l/abnormal. [employer] [id number] 07:37:00 Test Item Value Reference Range Interpretation Comments CK MB (test code = CK MB) 2.3 0.5-3.6 [facility] [employer] [id number] 07:37:00 Test Item Value Reference Range Interpretation Comments Total CK (test code = Total CK) 226 - [employer] [id number] 05:43:00 Test Item Value Reference Range Interpretation Comments Antibody Scrn (test Negative (09/30/14 code = Antibody Scrn) 12:43 AM) [employer] [id number] 05:43:00 Test Item Value Reference Range Interpretation Comments ABO/Rh (test code = ABO/Rh) B POS [employer] [id number] 05:43:00 Test Item Value Reference Range Interpretation Comments Total CK (test code = Total CK) 33 - [employer] [id number] 05:43:00 Test Item Value Reference Range Interpretation Comments Antibody Scrn (test Negative (09/30/14 code = Antibody Scrn) 12:43 AM) [employer] [id number] 05:43:00 Test Item Value Reference Range Interpretation Comments ABO/Rh (test code = ABO/Rh) B POS [facility] [employer] [id number] 05:43:00 Test Item Value Reference Range Interpretation Comments Total CK (test code = Total CK) 33 [employer] [id number] 00:58:00 Test Item Value Reference Range Interpretation Comments Total CK (test code = Total CK) 45 [employer] [id number] 00:58:00 Test Item Value Reference Range Interpretation Comments Total CK (test code = Total CK) 45 [facility] AND [id number] 19:36:00 Test Item Value Reference Range Interpretation Comments UA Ketones (test code = UA Ketones) TR [facility] [id number] 19:36:00 Test Item Value Reference Range Interpretation Comments UA Leuk Est (test Negative (09/29/14 2:36 code = UA Leuk Est) PM) [facility] [id number] 19:36:00 Test Item Value Reference Range Interpretation Comments UA Nitrite (test code Negative (09/29/14 2:36 = UA Nitrite) PM) [facility] AND [id number] 19:36:00 Test Item Value Reference Range Interpretation Comments UA Urobilinogen (test code = UA 4.0 0.1-1.0 Urobilinogen) [facility] AND [id number] 19:36:00 Test Item Value Reference Range Interpretation Comments UA Color (test code = Yellow *NA*(09/29/14 UA Color) 2:36 PM) [facility] AND [id number] 19:36:00 Test Item Value Reference Range Interpretation Comments UA Turbidity (test code = Clear (09/29/14 2:36 UA Turbidity) PM) [facility] AND [id number] 19:36:00 Test Item Value Reference Range Interpretation Comments UA Spec Grav (test code = UA Spec Grav) 1.009 [facility] AND [id number] 19:36:00 Test Item Value Reference Range Interpretation Comments UA pH (test code = UA pH) 5.5 5.0-8.0 [facility] AND [id number] 19:36:00 Test Item Value Reference Range Interpretation Comments UA Protein (test code = UA Protein) 10 mg/dL [facility] AND [id number] 19:36:00 Test Item Value Reference Range Interpretation Comments UA Glucose (test code = UA Glucose) 200 mg/dL [facility] AND [id number] 19:36:00 Test Item Value Reference Range Interpretation Comments UA Bili (test code = Negative *NA*(09/29/14 UA Bili) 2:36 PM) [facility] AND [id number] 19:36:00 Test Item Value Reference Range Interpretation Comments UA Blood (test code = Negative (09/29/14 2:36 UA Blood) PM) [facility] AND [id number] 19:36:00 Test Item Value Reference Range Interpretation Comments UA WBC (test code = 1 See_Comment [Automa odilia message] The UA WBC) system which ge nerated this result transmit odilia reference range : <=5. The reference range was not used to interpr et this result as eric l/abnormal. [facility] AND [id number] 19:36:00 Test Item Value Reference Range Interpretation Comments UA Sq Epi (test code = UA Sq Epi) Few /LPF [facility] AND [id number] 19:36:00 Test Item Value Reference Range Interpretation Comments UA Mucus (test code = UA Mucus) Few /LPF [facility] [id number] 19:36:00 Test Item Value Reference Range Interpretation Comments UA Ketones (test code = UA Ketones) TR [facility] AND [id number] 19:36:00 Test Item Value Reference Range Interpretation Comments UA Leuk Est (test Negative (09/29/14 2:36 code = UA Leuk Est) PM) [facility] AND [id number] 19:36:00 Test Item Value Reference Range Interpretation Comments UA Nitrite (test code Negative (09/29/14 2:36 = UA Nitrite) PM) [facility] AND [id number] 19:36:00 Test Item Value Reference Range Interpretation Comments UA Urobilinogen (test code = UA 4.0 0.1-1.0 Urobilinogen) [facility] AND [id number] 19:36:00 Test Item Value Reference Range Interpretation Comments UA Color (test code = Yellow *NA*(09/29/14 UA Color) 2:36 PM) [facility] AND [id number] 19:36:00 Test Item Value Reference Range Interpretation Comments UA Turbidity (test code = Clear (09/29/14 2:36 UA Turbidity) PM) [facility] AND [id number] 19:36:00 Test Item Value Reference Range Interpretation Comments UA Spec Grav (test code = UA Spec Grav) 1.009 [facility] AND [id number] 19:36:00 Test Item Value Reference Range Interpretation Comments UA pH (test code = UA pH) 5.5 5.0-8.0 [facility] AND [id number] 19:36:00 Test Item Value Reference Range Interpretation Comments UA Protein (test code = UA Protein) 10 mg/dL [facility] AND [id number] 19:36:00 Test Item Value Reference Range Interpretation Comments UA Glucose (test code = UA Glucose) 200 mg/dL [facility] AND [id number] 19:36:00 Test Item Value Reference Range Interpretation Comments UA Bili (test code = Negative *NA*(09/29/14 UA Bili) 2:36 PM) [facility] AND [id number] 19:36:00 Test Item Value Reference Range Interpretation Comments UA Blood (test code = Negative (09/29/14 2:36 UA Blood) PM) [facility] AND [id number] 19:36:00 Test Item Value Reference Range Interpretation Comments UA WBC (test code = 1 See_Comment [Automa odilia message] The UA WBC) system which ge nerated this result transmit odilia reference range : <=5. The reference range was not used to interpr et this result as eric l/abnormal. [facility] AND [id number] 19:36:00 Test Item Value Reference Range Interpretation Comments UA Sq Epi (test code = UA Sq Epi) Few /LPF [facility] AND [id number] 19:36:00 Test Item Value Reference Range Interpretation Comments UA Mucus (test code = UA Mucus) Few /LPF [facility] [id number] 17:06:00 Test Item Value Reference Range Interpretation Comments Troponin-I (test code no gt See_Comment [Auto mated message] The = Troponin-I) system which g enerated this result transmit odilia reference range : <=0.40. The reference r tanner was not used to interpr et this result as eric l/abnormal. [facility] [id number] 17:06:00 Test Item Value Reference Range Interpretation Comments Troponin-T (test code 0.078 See_Comment [Auto mated message] The = Troponin-T) system which g enerated this result transmit odilia reference range : <=0.100. The reference r tanner was not used to interpr et this result as eric l/abnormal. [facility] [id number] 17:06:00 Test Item Value Reference Range Interpretation Comments Myoglobin (test code = Myoglobin) 63 25-72 [facility]ARD[facility] [id number] 17:06:00 Test Item Value Reference Range Interpretation Comments Troponin-I (test code no gt See_Comment [Auto mated message] The = Troponin-I) system which g enerated this result transmit odilia reference range : <=0.40. The reference r tanner was not used to interpr et this result as eric l/abnormal. [facility] [employer]2015-04-16 17:06:00 Test Item Value Reference Range Interpretation Comments Troponin-T (test code 0.078 See_Comment [Auto mated message] The = Troponin-T) system which g enerated this result transmit odilia reference range : <=0.100. The reference r tanner was not used to interpr et this result as eric l/abnormal. [facility] [id number] 17:06:00 Test Item Value Reference Range Interpretation Comments Myoglobin (test code = Myoglobin) 63 -72 [facility] [employer]2015-04-16 10:23:00 Test Item Value Reference Range Interpretation Comments Troponin-T (test code no gt See_Comment [Auto mated message] The = Troponin-T) system which g enerated this result transmit odilia reference range : <=0.100. The reference r tanner was not used to interpr et this result as eric l/abnormal. [facility] [employer]2015-04-16 10:23:00 Test Item Value Reference Range Interpretation Comments Troponin-I (test code 0.03 See_Comment [Auto mated message] The = Troponin-I) system which g enerated this result transmit odilia reference range : <=0.40. The reference r tanner was not used to interpr et this result as eric l/abnormal. [facility] [id number] 10:23:00 Test Item Value Reference Range Interpretation Comments Myoglobin (test code = Myoglobin) 41 -72 [facility] [employer] [id number] 10:23:00 Test Item Value Reference Range Interpretation Comments Troponin-T (test code no gt See_Comment [Auto mated message] The = Troponin-T) system which g enerated this result transmit odilia reference range : <=0.100. The reference r tanner was not used to interpr et this result as eric l/abnormal. [facility] [employer]2015-04-16 10:23:00 Test Item Value Reference Range Interpretation Comments Troponin-I (test code 0.03 See_Comment [Auto mated message] The = Troponin-I) system which g enerated this result transmit odilia reference range : <=0.40. The reference r tanner was not used to interpr et this result as eric l/abnormal. [id number] 10:23:00 Test Item Value Reference Range Interpretation Comments Myoglobin (test code = Myoglobin) 41 - [facility]ale[facility] [id number] 01:25:00 Test Item Value Reference Range Interpretation Comments Troponin-T (test code no gt See_Comment [Auto mated message] The = Troponin-T) system which g enerated this result transmit odiila reference range : <=0.100. The reference r tanner was not used to interpr et this result as eric l/abnormal. [facility] [id number] 01:25:00 Test Item Value Reference Range Interpretation Comments Troponin-I (test code no gt See_Comment [Auto mated message] The = Troponin-I) system which g enerated this result transmit odilia reference range : <=0.40. The reference r tanner was not used to interpr et this result as eric l/abnormal. [id number] 01:25:00 Test Item Value Reference Range Interpretation Comments Myoglobin (test code = Myoglobin) 37 [facility] BrenhamQuolaweMerge Health [id number] 01:25:00 Test Item Value Reference Range Interpretation Comments Troponin-T (test code no gt See_Comment [Auto mated message] The = Troponin-T) system which g enerated this result transmit odilia reference range : <=0.100. The reference r tanner was not used to interpr et this result as eric l/abnormal. [facility]aleMerge Health [id number] 01:25:00 Test Item Value Reference Range Interpretation Comments Troponin-I (test code no gt See_Comment [Auto mated message] The = Troponin-I) system which g enerated this result transmit odilia reference range : <=0.40. The reference r tanner was not used to interpr et this result as eric l/abnormal. [facility] [id number] 01:25:00 Test Item Value Reference Range Interpretation Comments Myoglobin (test code = Myoglobin) 37 25-72 [facility] AND [id number] 23:11:00 Test Item Value Reference Range Interpretation Comments UA Leuk Est (test Negative (09/27/14 6:11 code = UA Leuk Est) PM) [facility] AND [id number] 23:11:00 Test Item Value Reference Range Interpretation Comments UA WBC (test code = 1 See_Comment [Automa odilia message] The UA WBC) system which ge nerated this result transmit odilia reference range : <=5. The reference range was not used to interpr et this result as eric l/abnormal. [facility] AND [id number] 23:11:00 Test Item Value Reference Range Interpretation Comments UA Sq Epi (test code = UA Sq Epi) Few /LPF [facility] AND [id number] 23:11:00 Test Item Value Reference Range Interpretation Comments UA Bacteria (test code = UA Occasional /HPF Bacteria) [facility] AND [id number] 23:11:00 Test Item Value Reference Range Interpretation Comments UA pH (test code = UA pH) 6.0 5.0-8.0 [facility] AND [id number] 23:11:00 Test Item Value Reference Range Interpretation Comments UA Spec Grav (test code = UA Spec Grav) 1.011 [facility] AND [id number] 23:11:00 Test Item Value Reference Range Interpretation Comments UA Glucose (test code = UA >=1000 mg/dL Glucose) [facility] AND [id number] 23:11:00 Test Item Value Reference Range Interpretation Comments UA Protein (test code = UA Protein) 20 mg/dL [facility] AND [id number] 23:11:00 Test Item Value Reference Range Interpretation Comments UA Color (test code = Yellow *NA*(09/27/14 UA Color) 6:11 PM) [facility] AND [id number] 23:11:00 Test Item Value Reference Range Interpretation Comments UA Blood (test code = Negative (09/27/14 6:11 UA Blood) PM) [facility] AND [id number] 23:11:00 Test Item Value Reference Range Interpretation Comments UA Bili (test code = Negative *NA*(09/27/14 UA Bili) 6:11 PM) [facility] AND [id number] 23:11:00 Test Item Value Reference Range Interpretation Comments UA Nitrite (test code Negative (09/27/14 6:11 = UA Nitrite) PM) [facility] AND [id number] 23:11:00 Test Item Value Reference Range Interpretation Comments UA Urobilinogen (test code = UA 8.0 0.1-1.0 Urobilinogen) [facility] AND [id number] 23:11:00 Test Item Value Reference Range Interpretation Comments UA Turbidity (test code = Clear (09/27/14 6:11 UA Turbidity) PM) [facility] AND [id number] 23:11:00 Test Item Value Reference Range Interpretation Comments UA Ketones (test code = UA Negative mg/dL Ketones) [facility] AND [id number] 23:11:00 Test Item Value Reference Range Interpretation Comments UA Leuk Est (test Negative (09/27/14 6:11 code = UA Leuk Est) PM) [facility] AND [id number] 23:11:00 Test Item Value Reference Range Interpretation Comments UA WBC (test code = 1 See_Comment [Automa odilia message] The UA WBC) system which ge nerated this result transmit odilia reference range : <=5. The reference range was not used to interpr et this result as eric l/abnormal. [facility] AND [id number] 23:11:00 Test Item Value Reference Range Interpretation Comments UA Sq Epi (test code = UA Sq Epi) Few /LPF [facility] AND [id number] 23:11:00 Test Item Value Reference Range Interpretation Comments UA Bacteria (test code = UA Occasional /HPF Bacteria) [facility] AND [id number] 23:11:00 Test Item Value Reference Range Interpretation Comments UA pH (test code = UA pH) 6.0 5.0-8.0 [facility] AND [id number] 23:11:00 Test Item Value Reference Range Interpretation Comments UA Spec Grav (test code = UA Spec Grav) 1.011 [facility] AND [id number] 23:11:00 Test Item Value Reference Range Interpretation Comments UA Glucose (test code = UA >=1000 mg/dL Glucose) [facility] AND [id number] 23:11:00 Test Item Value Reference Range Interpretation Comments UA Protein (test code = UA Protein) 20 mg/dL [facility] AND [id number] 23:11:00 Test Item Value Reference Range Interpretation Comments UA Color (test code = Yellow *NA*(09/27/14 UA Color) 6:11 PM) [facility] AND [id number] 23:11:00 Test Item Value Reference Range Interpretation Comments UA Blood (test code = Negative (09/27/14 6:11 UA Blood) PM) [facility] AND [id number] 23:11:00 Test Item Value Reference Range Interpretation Comments UA Bili (test code = Negative *NA*(09/27/14 UA Bili) 6:11 PM) [facility] AND [id number] 23:11:00 Test Item Value Reference Range Interpretation Comments UA Nitrite (test code Negative (09/27/14 6:11 = UA Nitrite) PM) [facility] AND [id number] 23:11:00 Test Item Value Reference Range Interpretation Comments UA Urobilinogen (test code = UA 8.0 0.1-1.0 Urobilinogen) [facility] AND [id number] 23:11:00 Test Item Value Reference Range Interpretation Comments UA Turbidity (test code = Clear (09/27/14 6:11 UA Turbidity) PM) [facility] AND [id number] 23:11:00 Test Item Value Reference Range Interpretation Comments UA Ketones (test code = UA Negative mg/dL Ketones) [facility] [id number] 14:21:00 Test Item Value Reference Range Interpretation Comments Anti-Xa Low Molecular Heparin (test 0.31 code = Anti-Xa Low Molecular Heparin) [id number] 14:21:00 Test Item Value Reference Range Interpretation Comments Anti-Xa Low Molecular Heparin (test 0.31 code = Anti-Xa Low Molecular Heparin) [facility]hamPARATHYROID [id number] 05:37:00 Test Item Value Reference Range Interpretation Comments Ca Norm WB (test code = Ca Norm WB) 1.13 1.05-1.25 [facility]annPARATHYROID [id number] 05:37:00 Test Item Value Reference Range Interpretation Comments Ca Ion WB (test code = Ca Ion WB) 1.15 1.05-1.25 [facility] [id number] 05:37:00 Test Item Value Reference Range Interpretation Comments Ca Norm WB (test code = Ca Norm WB) 1.13 1.05-1.25 [facility] HospitalannPARATHYROID [id number] 05:37:00 Test Item Value Reference Range Interpretation Comments Ca Ion WB (test code = Ca Ion WB) 1.15 1.05-1.25 [facility]hamCHEM [id number] 06:03:00 Test Item Value Reference Range Interpretation Comments Vitamin D, 25-OH, Total (test code = 17 30-100 Vitamin D, 25-OH, Total) [facility] [id number] 06:03:00 Test Item Value Reference Range Interpretation Comments Hgb A1C (test code = Hgb A1C) 12.9 [facility]THYROID [id number] 06:03:00 Test Item Value Reference Range Interpretation Comments TSH (test code = TSH) 1.770 0.360-3.740 [facility]hamCHEM [id number] 06:03:00 Test Item Value Reference Range Interpretation Comments Vitamin D, 25-OH, Total (test code = 17 30-100 Vitamin D, 25-OH, Total) [facility] [id number] 06:03:00 Test Item Value Reference Range Interpretation Comments Hgb A1C (test code = Hgb A1C) 12.9 [facility]THYROID [id number] 06:03:00 Test Item Value Reference Range Interpretation Comments TSH (test code = TSH) 1.770 0.360-3.740 [facility] AND [id number] 03:57:00 Test Item Value Reference Range Interpretation Comments UA Spec Grav (test code = UA Spec 1.015 1 Grav) [facility] [id number] 03:57:00 Test Item Value Reference Range Interpretation Comments UA Turbidity (test code = Clear (09/19/14 10:57 UA Turbidity) PM) [facility] AND [id number] 03:57:00 Test Item Value Reference Range Interpretation Comments UA Ketones (test code = UA Ketones) 40 mg/dL [facility] AND [id number] 03:57:00 Test Item Value Reference Range Interpretation Comments UA Glucose (test code = UA >=1000 mg/dL Glucose) [facility] AND [id number] 03:57:00 Test Item Value Reference Range Interpretation Comments UA Leuk Est (test Negative (09/19/14 10:57 code = UA Leuk Est) PM) [facility] AND [id number] 03:57:00 Test Item Value Reference Range Interpretation Comments UA Nitrite (test code Negative (09/19/14 10:57 = UA Nitrite) PM) [facility] AND [id number] 03:57:00 Test Item Value Reference Range Interpretation Comments UA Urobilinogen (test code = UA 0.2 0.1-1.0 Urobilinogen) [facility] AND [id number] 03:57:00 Test Item Value Reference Range Interpretation Comments UA Blood (test code = Small *ABN*(09/19/14 UA Blood) 10:57 PM) [facility] AND [id number] 03:57:00 Test Item Value Reference Range Interpretation Comments UA pH (test code = UA pH) 5.0 1 5.0-8.0 [facility] AND [id number] 03:57:00 Test Item Value Reference Range Interpretation Comments UA Bili (test code = Negative *NA*(09/19/14 UA Bili) 10:57 PM) [facility] AND [id number] 03:57:00 Test Item Value Reference Range Interpretation Comments UA Protein (test code Negative (09/19/14 10:57 = UA Protein) PM) [facility] AND [id number] 03:57:00 Test Item Value Reference Range Interpretation Comments UA Color (test code = Yellow *NA*(09/19/14 UA Color) 10:57 PM) [facility] AND [id number] 03:57:00 Test Item Value Reference Range Interpretation Comments UA Bacteria (test code = UA Few /HPF Bacteria) [facility] AND [id number] 03:57:00 Test Item Value Reference Range Interpretation Comments UA WBC (test code = UA None Seen (09/19/14 10:57 WBC) PM) [facility] AND [id number] 03:57:00 Test Item Value Reference Range Interpretation Comments UA RBC (test code = 0-2 /HPF See_Comment [Automa odilia message] The UA RBC) system which ge nerated this result tra nsmitted reference range : <=2. The reference range was not used to interpr et this result as eric l/abnormal. [facility] AND [id number] 03:57:00 Test Item Value Reference Range Interpretation Comments UA Sq Epi (test code = None Seen (09/19/14 10:57 UA Sq Epi) PM) [facility] AND [id number] 03:57:00 Test Item Value Reference Range Interpretation Comments UA Spec Grav (test code = UA Spec 1.015 1 Grav) [facility] AND [id number] 03:57:00 Test Item Value Reference Range Interpretation Comments UA Turbidity (test code = Clear (09/19/14 10:57 UA Turbidity) PM) [facility] AND [id number] 03:57:00 Test Item Value Reference Range Interpretation Comments UA Ketones (test code = UA Ketones) 40 mg/dL [facility] AND [id number] 03:57:00 Test Item Value Reference Range Interpretation Comments UA Glucose (test code = UA >=1000 mg/dL Glucose) [facility] AND [id number] 03:57:00 Test Item Value Reference Range Interpretation Comments UA Leuk Est (test Negative (09/19/14 10:57 code = UA Leuk Est) PM) [facility] AND [id number] 03:57:00 Test Item Value Reference Range Interpretation Comments UA Nitrite (test code Negative (09/19/14 10:57 = UA Nitrite) PM) [facility] AND [id number] 03:57:00 Test Item Value Reference Range Interpretation Comments UA Urobilinogen (test code = UA 0.2 0.1-1.0 Urobilinogen) [facility] AND [id number] 03:57:00 Test Item Value Reference Range Interpretation Comments UA Blood (test code = Small *ABN*(09/19/14 UA Blood) 10:57 PM) [facility] [id number] 03:57:00 Test Item Value Reference Range Interpretation Comments UA pH (test code = UA pH) 5.0 1 5.0-8.0 [facility] [id number] 03:57:00 Test Item Value Reference Range Interpretation Comments UA Bili (test code = Negative *NA*(09/19/14 UA Bili) 10:57 PM) [facility] AND [id number] 03:57:00 Test Item Value Reference Range Interpretation Comments UA Protein (test code Negative (09/19/14 10:57 = UA Protein) PM) [facility] [id number] 03:57:00 Test Item Value Reference Range Interpretation Comments UA Color (test code = Yellow *NA*(09/19/14 UA Color) 10:57 PM) [facility] AND [id number] 03:57:00 Test Item Value Reference Range Interpretation Comments UA Bacteria (test code = UA Few /HPF Bacteria) [facility] [id number] 03:57:00 Test Item Value Reference Range Interpretation Comments UA WBC (test code = UA None Seen (09/19/14 10:57 WBC) PM) [facility] AND [id number] 03:57:00 Test Item Value Reference Range Interpretation Comments UA RBC (test code = 0-2 /HPF See_Comment [Automa odilia message] The UA RBC) system which ge nerated this result tra nsmitted reference range : <=2. The reference range was not used to interpr et this result as eric l/abnormal. [facility] AND [id number] 03:57:00 Test Item Value Reference Range Interpretation Comments UA Sq Epi (test code = None Seen (09/19/14 10:57 UA Sq Epi) PM) [facility] [employer] BANK [id number] 23:04:00 Test Item Value Reference Range Interpretation Comments ABO/Rh (test code = ABO/Rh) [facility] [employer] [facility] [id number] 23:04:00 Test Item Value Reference Range Interpretation Comments Antibody Scrn (test Negative (09/19/14 6:04 code = Antibody Scrn) PM) [facility]2015-04-06 23:04:00 Test Item Value Reference Range Interpretation Comments Lactic Acid Lvl (test code = Lactic 2.2 0.5-2.2 Acid Lvl) [id number] 23:04:00 Test Item Value Reference Range Interpretation Comments Estimated % Lysis (test 1.7 See_Comment [Au tomated message] The code = Estimated % system wh ich generated Lysis) this result tra nsmitted reference range : <=7.5. The reference r tanner was not used to int erpret this result as normal/abnormal . [facility] [id number] 23:04:00 Test Item Value Reference Range Interpretation Comments Rapid TEG Sample Type Citrated Whole Blood (test code = Rapid TEG Sample Type) [facility] [id number] 23:04:00 Test Item Value Reference Range Interpretation Comments R-time (test code = R-time) 0.7 min 0.4-0.7 [facility] [id number] 23:04:00 Test Item Value Reference Range Interpretation Comments Split Point (test code = Split Point) 0.5 min [facility] [id number] 23:04:00 Test Item Value Reference Range Interpretation Comments ACT (TEG) (test code = ACT (TEG)) 113 s 86-118 [facility] [id number] 23:04:00 Test Item Value Reference Range Interpretation Comments Angle (test code = Angle) 75 degrees 64-80 [facility] [id number] 23:04:00 Test Item Value Reference Range Interpretation Comments K-time (test code = K-time) 1.2 min 0.6-2.3 [facility] [id number] 23:04:00 Test Item Value Reference Range Interpretation Comments G-value (test code = G-value) 10.2 5.0-11.6 [facility] [id number] 23:04:00 Test Item Value Reference Range Interpretation Comments Max Amp (test code = Max Amp) 67 mm 52-71 [facility] [id number] 23:04:00 Test Item Value Reference Range Interpretation Comments Plt Morph (test code = Normal (09/19/14 6:04 PM) Plt Morph) [id number] 23:04:00 Test Item Value Reference Range Interpretation Comments RBC Morph (test code = Normal (09/19/14 6:04 PM) RBC Morph) [id number] 23:04:00 Test Item Value Reference Range Interpretation Comments [place]-Hep C Ab (test Negative *NA*(09/19/14 code = [place]-Hep C 6:04 PM) Ab) [id number] 23:04:00 Test Item Value Reference Range Interpretation Comments Etoh (%) (test code = Etoh (%)) no gt [facility] [id number] 23:04:00 Test Item Value Reference Range Interpretation Comments Ethanol Lvl (test code = Ethanol Lvl) no gt [facility] [employer] BANK [id number] 23:04:00 Test Item Value Reference Range Interpretation Comments ABO/Rh (test code = ABO/Rh) B POS [facility] [employer] BANK [id number] 23:04:00 Test Item Value Reference Range Interpretation Comments Antibody Scrn (test Negative (09/19/14 6:04 code = Antibody Scrn) PM) [facility]CHE[facility] [id number] 23:04:00 Test Item Value Reference Range Interpretation Comments Lactic Acid Lvl (test code = Lactic 2.2 0.5-2.2 Acid Lvl) [id number] 23:04:00 Test Item Value Reference Range Interpretation Comments Estimated % Lysis (test 1.7 See_Comment [Au tomated message] The code = Estimated % system wh ich generated Lysis) this result tra nsmitted reference range : <=7.5. The reference r tanner was not used to int erpret this result as normal/abnormal . [id number] 23:04:00 Test Item Value Reference Range Interpretation Comments Rapid TEG Sample Type Citrated Whole Blood (test code = Rapid TEG Sample Type) [id number] 23:04:00 Test Item Value Reference Range Interpretation Comments R-time (test code = R-time) 0.7 min 0.4-0.7 [id number] 23:04:00 Test Item Value Reference Range Interpretation Comments Split Point (test code = Split Point) 0.5 min [facility] [id number] 23:04:00 Test Item Value Reference Range Interpretation Comments ACT (TEG) (test code = ACT (TEG)) 113 s 86-118 [id number] 23:04:00 Test Item Value Reference Range Interpretation Comments Angle (test code = Angle) 75 degrees 64-80 [facility] [id number] 23:04:00 Test Item Value Reference Range Interpretation Comments K-time (test code = K-time) 1.2 min 0.6-2.3 [facility] [id number] 23:04:00 Test Item Value Reference Range Interpretation Comments G-value (test code = G-value) 10.2 5.0-11.6 [facility] [id number] 23:04:00 Test Item Value Reference Range Interpretation Comments Max Amp (test code = Max Amp) 67 mm 52-71 [facility] [id number] 23:04:00 Test Item Value Reference Range Interpretation Comments Plt Morph (test code = Normal (09/19/14 6:04 PM) Plt Morph) [id number] 23:04:00 Test Item Value Reference Range Interpretation Comments RBC Morph (test code = Normal (09/19/14 6:04 PM) RBC Morph) [id number] 23:04:00 Test Item Value Reference Range Interpretation Comments [place]-Hep C Ab (test Negative *NA*(09/19/14 code = [place]-Hep C 6:04 PM) Ab) [id number] 23:04:00 Test Item Value Reference Range Interpretation Comments Etoh (%) (test code = Etoh (%)) no gt [id number] 23:04:00 Test Item Value Reference Range Interpretation Comments Ethanol Lvl (test code = Ethanol Lvl) no gt [facility]
[2022-08-26] MEDS ORDERED: HYDROCODONE/APAP 10/325 TAB ONE (18:50)
--- NOTE | 2022-08-26 19:17 | RAD REPORT ---
EXAM DESCRIPTION: Shoulder Right 2 View - 08/26/2022 6:00 pm CLINICAL HISTORY: fall, right shoulder pain COMPARISON: None. TECHNIQUE: Internal and external rotation views of the right shoulder were obtained. FINDINGS: There is no fracture or dislocation. AC joint is normal in appearance. Moderate degenerati ve changes of the shoulder joint. No acute or suspicious findings. IMPRESSION: Negative two-view right shoulder examination.
--- NOTE | 2022-08-26 19:18 | RAD REPORT ---
EXAM DESCRIPTION: RAD - Humerus Right - 08/26/2022 6:00 pm CLINICAL HISTORY: fall, right shoulder pain COMPARISON: None. FINDINGS: 2 views of the right humerus. No fracture is identified. There is no dislocation or periosteal reaction noted. No foreign body or o ther soft tissue abnormality. IMPRESSION: Negative right humerus examination.
[2022-08-26 21:12] VITALS: TEMP 97.5
[2022-08-26 21:15] VITALS: BP 107/80; O2SAT 97
--- NOTE | 2022-09-06 17:09 | EDPHYS ---
Physician Documentation [facility] Name: Zen Torres Age: 72 yrs Sex: Male : 1950 Arrival Date: 08/26/2022 Time: 16:45 Bed 16 Private MD: [facility] ED Physician Paul Holt HPI: 08/26 17:01 This 72 yrs old Male presents to ER via Ambulatory with complaints of Shoulder Injury, jmm Fall Injury. 17:01 The patient or guardian complains of pain, that is acute. Onset: The symptoms/episode jmm began/occurred acutely, 1 day(s) ago. Modifying factors: the symptoms are alleviated by nothing. The symptoms are aggravated by movement. This is a 72 year old male with a history of dm, htn, hlp that presents ot the ED after a fall which occurred yesterday. Patient fell on his right shoulder. Denies hitting his head. . Historical: - Allergies: 16:56 No Known Allergies; ko1 - PMHx: 16:56 Diabetes - IDDM; Hypertension; High Cholesterol; Kidney disease; ko1 - Immunization history:: Adult Immunizations unknown. - Social history:: Smoking status: Patient denies any tobacco usage or history of. ROS: 17:01 Constitutional: Negative for fever, chills, and weight loss, Cardiovascular: Negative jmm for chest pain, palpitations, and edema, Respiratory: Negative for shortness of breath, cough, wheezing, and pleuritic chest pain. 17:01 MS/extremity: Positive for injury or acute deformity, pain. 17:01 All other systems are negative. Exam: 17:01 Constitutional: This is a well developed, well nourished patient who is awake, alert, jmm and in no acute distress. Head/Face: atraumatic. Eyes: EOMI, no conjunctival erythema appreciated ENT: Moist Mucus Membranes Neck: Trachea midline, Supple Chest/axilla: Normal chest wall appearance and motion. Cardiovascular: Regular rate and rhythm. No edema appreciated Respiratory: Normal respirations, no respiratory distress appreciated Abdomen/GI: Non distended Back: Normal ROM Skin: General appearance color normal 17:01 Musculoskeletal/extremity: right shoulder ttp anteriorly, pain appreciated on abduction. 17:01 Skin: Appearance: Color: normal in color. 17:01 Neuro: Orientation: is normal, Mentation: is normal, Memory: is normal. 17:01 Psych: Behavior/mood is pleasant, cooperative. Vital Signs: 16:56 BP 159 / 80; Pulse 79; Resp 20; Temp 98; Pulse Ox 99% ; Weight 95.25 kg; Height 6 ft. 3 ko1 in. ; 19:12 BP 150 / 82; Pulse 88; Resp 18; Pulse Ox 99% ; mb9 16:56 Body Mass Index 26.25 (95.25 kg, 190.5 cm) ko1 MDM: 17:01 Patient medically screened. [facility] 19:23 Differential diagnosis: Sprain, rotator cuff tear, AC separation, humeral fracture. [facility] Data reviewed: vital signs, nurses notes, radiologic studies, plain films. I considered the following discharge prescriptions or medication management in the emergency department Medications were administered in the Emergency Department. See MAR. Independent interpretation of the following test(s) in the Emergency Department X-Ray: My interpretation is No fracture appreciated. Counseling: I had a detailed discussion with the patient and/or guardian regarding: the historical points, exam findings, and any diagnostic results supporting the discharge/admit diagnosis, radiology results, the need for outpatient follow up, to return to the emergency department if symptoms worsen or persist or if there are any questions or concerns that arise at home. 08/26 17:02 Order name: Shoulder Right (2 View) XRAY; Complete Time: 19:23 [facility] 08/26 17:02 Order name: Humerus Right XRAY; Complete Time: 19:23 [facility] 08/26 19:11 Order name: Sling; Complete Time: 19:43 [facility] Administered Medications: 18:54 Drug: [place] PO 10 mg-325 mg 1 tabs Route: PO; mb9 19:11 Follow up: Response: No adverse reaction 9 Disposition Summary: 08/26/22 19:25 Discharge Ordered Location: Home [facility] Condition: Stable [facility] Diagnosis - Strain of other muscles, fascia and tendons at shoulder and upper arm level, right [facility] arm Followup: [facility] - With: Alex Gallego MD - When: 2 - 3 days - Reason: Recheck today's complaints, Continuance of care, Re-evaluation by your physician Discharge Instructions: - Discharge Summary Sheet [facility] - Shoulder Sprain [facility] Forms: - Medication Reconciliation Form [facility] - Thank You Letter jmm - Antibiotic Education jmm - Prescription Opioid Use [facility] Prescriptions: - orphenadrine citrate 100 mg Oral Tablet Sustained Release - take 1 tablet by ORAL route 2 times per day As needed; 20 tablet; Refills: 0, jmm Product Selection Permitted Signatures: Dispatcher [employer] Vinay Mendez PA PA jmm Oliver, Kathy RN RN ko1 Lisa Bryan RN RN mb9
--- NOTE | 2022-09-06 17:09 | ER ---
Nurse's Notes [facility] Name: Zen Torres Age: 72 yrs Sex: Male : 1950 Arrival Date: 08/26/2022 Time: 16:45 Bed 16 Private MD: Chepe Bah Diagnosis: Strain of other muscles, fascia and tendons at shoulder and upper arm level, right arm Presentation: 08/26 16:53 Chief complaint: Patient states: fell yesterday on right shoulder not getting better. ko1 Coronavirus screen: At this time, the client does not indicate any symptoms associated with coronavirus-19. Ebola Screen: No symptoms or risks identified at this time. Initial Sepsis Screen: Does the patient meet any 2 criteria? No. Patient's initial sepsis screen is negative. Does the patient have a suspected source of infection? No. Patient's initial sepsis screen is negative. Risk Assessment: Do you want to hurt yourself or someone else? Patient reports no desire to harm self or others. Onset of symptoms was August 26, 2022. 16:53 Method Of Arrival: Ambulatory ko1 16:53 Acuity: HECTOR 3 ko1 Triage Assessment: 16:56 General: Appears in no apparent distress. uncomfortable, Behavior is calm, cooperative, ko1 appropriate for age. Pain: Complains of pain in anterior aspect of right shoulder. Musculoskeletal: Reports pain in anterior aspect of right shoulder. Injury Description: blunt. Historical: - Allergies: 16:56 No Known Allergies; ko1 - PMHx: 16:56 Diabetes - IDDM; Hypertension; High Cholesterol; Kidney disease; ko1 - Immunization history:: Adult Immunizations unknown. - Social history:: Smoking status: Patient denies any tobacco usage or history of. Screenin:27 [facility] ED Fall Risk Assessment (Adult) History of falling in the last 3 months, mb9 including since admission No falls in past 3 months (0 pts) Confusion or Disorientation No (0 pts) Intoxicated or Sedated No (0 pts) Impaired Gait No (0 pts). Abuse screen: Denies threats or abuse. Nutritional screening: No deficits noted. Tuberculosis screening: No symptoms or risk factors identified. Assessment: 18:26 General: Appears in no apparent distress. Behavior is calm, cooperative, appropriate mb9 for age. Pain: Complains of pain in right arm and anterior aspect of right shoulder Pain currently is 8 out of 10 on a pain scale. Quality of pain is described as throbbing, Aggravated by repositioning, weight bearing. Neuro: Level of Consciousness is awake, alert, obeys commands, Oriented to person, place, time, situation, Appropriate for age. Cardiovascular: Patient's skin is warm and dry. Respiratory: Airway is patent Respiratory effort is even, unlabored, Respiratory pattern is regular, symmetrical. Derm: Skin is pink, warm \T\ dry. Musculoskeletal: Range of motion: limited in anterior aspect of right shoulder. 19:12 Reassessment: No changes from previously documented assessment. Patient and/or family mb9 updated on plan of care and expected duration. Pain level reassessed. Patient is alert, oriented x 3, equal unlabored respirations, skin warm/dry/pink. Patient states feeling better. Patient states symptoms have improved. Vital Signs: 16:56 BP 159 / 80; Pulse 79; Resp 20; Temp 98; Pulse Ox 99% ; Weight 95.25 kg; Height 6 ft. 3 ko1 in. ; 19:12 BP 150 / 82; Pulse 88; Resp 18; Pulse Ox 99% ; mb9 16:56 Body Mass Index 26.25 (95.25 kg, 190.5 cm) ko1 ED Course: 16:45 Patient arrived in ED. am2 16:46 Chepe Bah DO is Private Physician. am2 16:46 Vinay Wagner PA is [facility]. [facility] 16:46 Paul Holt MD is Attending Physician. [facility] 16:56 Triage completed. ko1 16:56 Arm band placed on left wrist. Patient placed in waiting room, Patient notified of wait ko1 time. 17:51 Lisa Bryan, VINITA is Primary Nurse. mb9 18:02 Shoulder Right (2 View) XRAY In Process Unspecified. EDMS 18:02 Humerus Right XRAY In Process Unspecified. EDMS 19:12 No provider procedures requiring assistance completed. Patient did not have IV access mb9 during this emergency room visit. 19:25 Alex Gallego MD is Referral Physician. jmm Administered Medications: 18:54 Drug: [place] PO 10 mg-325 mg 1 tabs Route: PO; mb9 19:11 Follow up: Response: No adverse reaction mb9 Medication: 19:12 VIS not applicable for this client. mb9 Outcome: 19:25 Discharge ordered by . kyler 19:43 Discharged to home ambulatory. mb9 19:43 Condition: stable 19:43 Discharge instructions given to patient, Instructed on discharge instructions, follow up and referral plans. Demonstrated understanding of instructions, follow-up care, medications, Prescriptions given X 1. 19:44 Patient left the ED. mb9 Signatures: Dispatcher [employer] EDMS Vinay Wagner PA PA jmm Moreno, Amanda am2 Oliver, Kathy, RN RN ko1 Lisa Bryan RN RN mb9
== END 2022-08-26 19:44 | disposition home or self-care (01) ==
LOC: ER 16:33
DX: S46.811A Strain of other muscles, fascia and tendons at shoulder and upper arm level, right arm, initial encounter (principal)
CPT/HCPCS: 99283

== ENCOUNTER 2023-11-25 12:55 | Inpatient (IN) | payer OTHER ==
[2023-11-25 13:20] LABS: Absolute Basophils 0.1 K/uL (0-0.5); Absolute Eosinophils 0.3 K/uL (0-0.5); Absolute Lymphocytes (CBC) 1.5 K/uL (0.7-4.9); Absolute Monocytes 0.9 K/uL (0.1-1.3); Absolute Neutrophil 9.7 K/uL (1.8-8.0); Basophils % 0.4 % (0-1.3); Eosinophils % 2.7 % (0-4.4); Hematocrit 30.4 % (39.6-49.0); Hemoglobin 9.8 g/dL (13.6-17.9); Lymphocytes % 11.8 % (15.3-44.8); MCH 28.3 pg (27.0-35.0); MCHC 32.1 g/dL (32.0-36.0); MPV 7.3 fL (7.6-11.3); Monocytes % 7.2 % (3.3-12.3); Neutrophils % 77.9 % (41.7-73.7); Platelets 302 thou/uL (152-406); RBC Red Blood Cell Count 3.45 M/uL (4.33-5.43); Red Cell Distribution Width 14.3 % (12.1-15.2)
[2023-11-25 13:22] LABS: PT Prothrombin Time 13.4 SECONDS (9.5-12.5); PTT, Activated Partial Thromb 29.3 SECONDS (24.3-36.9); Protime INR 1.23
[2023-11-25 13:51] LABS: Albumin/Globulin Ratio 0.8 (1.1-1.8); Alkaline Phosphatase 75 U/L (45-117); Anion Gap 13.1 mEq/L (5.0-15.0); BUN Blood Urea Nitrogen 87 mg/dL (7-18); Bicarbonate 23 mEq/L (21-32); Bilirubin Direct 0.2 mg/dL (0-0.2); Bilirubin Indirect, Calculated 0.2 mg/dL (0.2-0.8); Bilirubin Total 0.4 mg/dL (0.2-1.0); Glomerular Filtration Rate 10 ml/min (=/>90); Glucose Level 118 mg/dL (74-106); Magnesium 1.8 mg/dL (1.6-2.4); Potassium 4.1 mEq/L (3.5-5.1); Sodium Level 139 mEq/L (136-145); Troponin High Sensitivity 9.7 pg/mL (<58.9)
[2023-11-25 14:00] LABS: ALT/SGPT < 14 U/L (16-61); AST/SGOT < 10 U/L (15-37)
--- NOTE | 2023-11-25 14:27 | RAD REPORT ---
EXAM DESCRIPTION: CT - CTHCSPWOC - 11/25/2023 1:21 pm CLINICAL HISTORY: fall COMPARISON: No comparisons TECHNIQUE: Axial thin cut noncontrast CT images of the head were obtained. Axial thin cut noncontrast CT images of the cervical spine were obtained. Multiplanar reformatted images were generated and reviewed. All CT scans are performed using dose optimization technique as appropriate and may include automated exposure control or mA/KV adjustment according to patient size. FINDINGS: CT HEAD WITHOUT CONTRAST: No acute hemorrhage, hydrocephalus or extra-axial collection is identified.No areas of brain edema or midline shift. The paranasal sinuses and mastoids are clear.The calvarium is intact. CT CERVICAL SPINE WITHOUT CONTRAST: No fracture or subluxation. Multilevel moderate degenerative changes, with variable degrees of neural foraminal narrowing, most pronounced on the right at C5-6 and on the left at C6-7.No prevertebral so ft tissues swelling is identified. IMPRESSION: No acute traumatic intracranial or cervical spine findings. Moderate multilevel cervical spine degenerative changes as above.
--- NOTE | 2023-11-25 14:28 | RAD REPORT ---
EXAM DESCRIPTION: Chet Single View11/25/2023 1:22 pm CLINICAL HISTORY: near syncope COMPARISON: Chest Single View dated 01/15/2017; Chest Single View dated 10/01/2016; Chest Single View d ated 02/29/2016; CHEST PA AND LAT 2 VIEW dated 06/08/2015 TECHNIQUE: Portable AP view of the chest. FINDINGS: The lungs are clear. No pneumothorax or effusion. The cardiomediastinal contours are unre markable. IMPRESSION: No acute cardiopulmonary process.
--- NOTE | 2023-11-25 15:00 | ER ---
Nurse's Notes [facility] Name: Yony Torres Age: 73 yrs Sex: Male : 1950 Arrival Date: 11/25/2023 Time: 12:55 Bed 15 Private MD: Diagnosis: Syncope Near;Dizziness and giddiness;Unspecified kidney failure Presentation: 11/24 13:07 Chief complaint: Rapid response in diagnostic imaging for near syncopal episode. Pt was hb seated chair when he became minimally responsive and pale. RT unable to obtain SpO2 reading, became more alert after pt placed on 2LNC. reports syncopal episode last Friday, left sided neck pain that started after fall and intermittent dizziness x 5 days. Was taking Levaquin for possible UTI, stopped taking yesterday. Coronavirus screen: At this time, the client does not indicate any symptoms associated with coronavirus-19. Ebola Screen: No symptoms or risks identified at this time. Initial Sepsis Screen: Does the patient meet any 2 criteria? No. Patient's initial sepsis screen is negative. Does the patient have a suspected source of infection? No. Patient's initial sepsis screen is negative. Risk Assessment: Do you want to hurt yourself or someone else?. Onset of symptoms was November 25, 2023. 13:07 Method Of Arrival: Wheelchair hb 13:07 Acuity: HECTOR 2 hb Historical: - Allergies: 13:13 No Known Allergies; hb - Home Meds: 13:13 allopurinol 100 mg Oral tablet 2 tabs 2 times per day [Active]; aspirin 81 mg Oral TbEC hb 1 tab once daily [Active]; atorvastatin 20 mg Oral tab 1 tab every evening [Active]; bumetanide 2 mg Oral tablet 1 tab daily [Active]; carvedilol 25 mg Oral tablet 1 tab 2 times per day [Active]; doxazosin 2 mg Oral tablet 1 tab twice a day [Active]; hydralazine 100 mg Oral tablet 1 tab 2 times per day [Active]; hydralazine 100 mg Oral tablet 1 tab 2 times per day [Active]; Kerendia 10 mg Oral tablet 1 tab daily [Active]; - PMHx: 13:13 High Cholesterol; Hypertension; Diabetes - IDDM; kidney disease; hb - PSHx: 13:13 Right Kidney Removed; hb - Immunization history:: Adult Immunizations up to date. - Infectious Disease History:: Denies. - Social history:: Smoking status: Patient denies any tobacco usage or history of. Screenin:46 [facility] ED Fall Risk Assessment (Adult) History of falling in the last 3 months, nj1 including since admission Yes- physiologic fall (2 pts) Confusion or Disorientation No (0 pts) Intoxicated or Sedated No (0 pts) Impaired Gait No (0 pts) Mobility Assist Device Used No (0 pt) Altered Elimination No (0 pt) Score/Fall Risk Level 0 - 2 = Low Risk Oriented to surroundings, Maintained a safe environment, Assessed \T\ reinforced patient's understanding of fall precautions, Hourly rounding (assess needs \T\ fall precautionary measures) done. Abuse screen: Denies threats or abuse. Denies injuries from another. Nutritional screening: No deficits noted. Tuberculosis screening: No symptoms or risk factors identified. Assessment: 13:45 General: Appears in no apparent distress. comfortable, Behavior is calm, cooperative, nj1 appropriate for age. Pain: Complains of pain in neck Pain currently is 8 out of 10 on a pain scale. Neuro: Level of Consciousness is awake, alert, obeys commands, Oriented to person, place, time, situation, Reports dizziness. Cardiovascular: Patient's skin is warm and dry. Rhythm is sinus rhythm. Respiratory: Airway is patent Respiratory effort is even, unlabored. 14:45 Reassessment: Patient appears in no apparent distress at this time. Patient and/or nj1 family updated on plan of care and expected duration. Pain level reassessed. Patient is alert, oriented x 3, equal unlabored respirations, skin warm/dry/pink. 15:45 Reassessment: Patient appears in no apparent distress at this time. Patient and/or nj1 family updated on plan of care and expected duration. Pain level reassessed. Patient is alert, oriented x 3, equal unlabored respirations, skin warm/dry/pink. 16:50 Reassessment: Patient appears in no apparent distress at this time. Patient and/or nj1 family updated on plan of care and expected duration. Pain level reassessed. Patient is alert, oriented x 3, equal unlabored respirations, skin warm/dry/pink. Vital Signs: 13:07 BP 126 / 75; Pulse 88; Resp 21; Temp 98.7(O); Pulse Ox 98% on 2 lpm NC; Weight 90.72 hb kg; Height 6 ft. 3 in. ; Pain 5/10; 13:45 BP 107 / 79; Pulse 84; Resp 20; Pulse Ox 100% on R/A; Pain 8/10; nj1 14:45 BP 134 / 77; Pulse 86; Resp 16; Pulse Ox 95% on R/A; nj1 15:45 BP 124 / 75; Pulse 91; Resp 16; Pulse Ox 96% on R/A; nj1 16:50 BP 142 / 95; Pulse 99; Resp 19; Temp 97.4(TE); Pulse Ox 97% on R/A; nj1 13:07 Body Mass Index 25.00 (90.72 kg, 190.5 cm) hb 13:07 Pain Scale: Adult hb 13:45 Pain Scale: Adult nj1 ED Course: 12:58 Patient arrived in ED. nj1 13:00 Kimo Nunez DO is Attending Physician. ms3 13:09 Initial lab(s) drawn, by nj, sent to lab. Inserted saline lock: 22 gauge in right ap3 forearm, using aseptic technique. Blood collected. 13:12 EKG done, by ED staff. sm8 13:13 Triage completed. hb 13:14 Arm band placed on. hb 13:17 Penny Ochoa, RN is Primary Nurse. nj1 13:20 CT Head C Spine In Process Unspecified. EDMS 13:24 Chest Single View XRAY In Process Unspecified. EDMS 13:47 Patient has correct armband on for positive identification. Bed in low position. Call [facility] light in reach. Side rails up X 1. Adult w/ patient. Provided Education on: call light, fall precautions. Client placed on continuous cardiac and pulse oximetry monitoring. NIBP monitoring applied. awake overnight monitor on. 14:58 Anthony Sosa is Hospitalizing Provider. ms3 17:39 No provider procedures requiring assistance completed. Patient admitted, IV remains in dc1 place. Administered Medications: No medications were administered Medication: 17:40 VIS not applicable for this client. nj1 Outcome: 14:59 Decision to Hospitalize by Provider. ms3 17:39 Patient left the ED. ll1 17:39 Admitted to Med/surg accompanied by tech, room 222, nj1 17:39 Condition: stable 17:39 Instructed on the need for admit, Signatures: Dispatcher [employer] EDLucille Edge RN RN Juliana Bishop, RN RN ap3 Jax Combs RN RN ll1 Kimo Nunez, DO ms3 Penny Ochoa RN RN nj1 Tosin Xie sm8 Corrections: (The following items were deleted from the chart) 13:15 13:07 Chief complaint: Rapid response in diagnostic imaging for near syncopal episode. Pt was seated chair when he became minimally responsive and pale. RT unable to obtain SpO2 reading, became more alert after pt placed on 2LNC. reports syncopal episode last Friday, left sided neck pain that started after fall and intermittent dizziness x 5 days. Was taking Levaquin for possible UTI, stopped taking yesterday. 16:08 13:45 Neuro: Level of Consciousness is awake, alert, obeys commands, Oriented to nj1 person, place, time, situation, nj1
--- NOTE | 2023-11-25 15:00 | EDPHYS ---
Physician Documentation [facility] Name: Yony Torres Age: 73 yrs Sex: Male : 1950 Arrival Date: 11/25/2023 Time: 12:55 Bed 15 Private MD: ED Physician Kimo Nunez HPI: 11/24 13:23 This 73 yrs old Male presents to ER via Wheelchair with complaints of Near Syncope. ms3 13:23 73-year-old male with past medical history of hyperlipidemia, hypertension, diabetes, ms3 kidney disease presents to the emergency department for near syncope. Patient was at the hospital for preop lab draw when he had a near syncopal event prompting a rapid response. Patient's notes patient had a syncopal event on Friday causing him to fall. Patient and his attribute his recent dizziness to starting Levaquin for possible infectious source of tumor in patient's bladder.. Historical: - Allergies: 13:13 No Known Allergies; hb - Home Meds: 13:13 allopurinol 100 mg Oral tablet 2 tabs 2 times per day [Active]; aspirin 81 mg Oral TbEC hb 1 tab once daily [Active]; atorvastatin 20 mg Oral tab 1 tab every evening [Active]; bumetanide 2 mg Oral tablet 1 tab daily [Active]; carvedilol 25 mg Oral tablet 1 tab 2 times per day [Active]; doxazosin 2 mg Oral tablet 1 tab twice a day [Active]; hydralazine 100 mg Oral tablet 1 tab 2 times per day [Active]; hydralazine 100 mg Oral tablet 1 tab 2 times per day [Active]; Kerendia 10 mg Oral tablet 1 tab daily [Active]; - PMHx: 13:13 High Cholesterol; Hypertension; Diabetes - IDDM; kidney disease; hb - PSHx: 13:13 Right Kidney Removed; hb - Immunization history:: Adult Immunizations up to date. - Infectious Disease History:: Denies. - Social history:: Smoking status: Patient denies any tobacco usage or history of. ROS: 13:23 Constitutional: Negative for fever, and chills. Cardiovascular: Negative for chest ms3 pain, and palpitations. Respiratory: Negative for shortness of breath, cough, wheezing, and pleuritic chest pain, Abdomen/GI: Negative for abdominal pain, nausea, vomiting, diarrhea, and constipation, Skin: Negative for injury, rash, and discoloration, 13:23 MS/extremity: Positive for Left-sided neck pain, Exam: 13:23 Constitutional: This is a well developed, well nourished patient who is awake, alert, ms3 and in no acute distress. Head/Face: Normocephalic, atraumatic. Chest/axilla: Normal chest wall appearance and motion. Nontender with no deformity. Cardiovascular: Regular rate and rhythm with a normal S1 and S2. No gallops, murmurs, or rubs. Normal PMI, no JVD. No pulse deficits. Respiratory: Lungs have equal breath sounds bilaterally, clear to auscultation and percussion. No rales, rhonchi or wheezes noted. No increased work of breathing, no retractions or nasal flaring. Abdomen/GI: Soft, non-tender, with normal bowel sounds. No distension or tympany. No guarding or rebound. No evidence of tenderness throughout. Skin: Warm, dry with normal turgor. Normal color with no rashes, no lesions, and no evidence of cellulitis. Neuro: Awake and alert, GCS 15, oriented to person, place, time, and situation. Cranial nerves II-XII grossly intact. Motor strength 5/5 in all extremities. Sensory grossly intact. Cerebellar exam normal. Normal gait. 14:59 ECG was reviewed by the Attending Physician. ms3 Vital Signs: 13:07 BP 126 / 75; Pulse 88; Resp 21; Temp 98.7(O); Pulse Ox 98% on 2 lpm NC; Weight 90.72 hb kg; Height 6 ft. 3 in. ; Pain 5/10; 13:45 BP 107 / 79; Pulse 84; Resp 20; Pulse Ox 100% on R/A; Pain 8/10; nj1 14:45 BP 134 / 77; Pulse 86; Resp 16; Pulse Ox 95% on R/A; nj1 15:45 BP 124 / 75; Pulse 91; Resp 16; Pulse Ox 96% on R/A; nj1 16:50 BP 142 / 95; Pulse 99; Resp 19; Temp 97.4(TE); Pulse Ox 97% on R/A; nj1 13:07 Body Mass Index 25.00 (90.72 kg, 190.5 cm) hb 13:07 Pain Scale: Adult hb 13:45 Pain Scale: Adult nj1 MDM: 13:00 Patient medically screened. ms3 13:23 Differential Diagnosis: cardiac arrhythmia, drug effect, idiopathic syncope. ms3 15:00 Data reviewed: vital signs, nurses notes, lab test result(s), EKG, radiologic studies, ms3 and as a result, I will admit patient. Consideration of Admission/Observation Patient was admitted/placed on observation. Management of patient was discussed with the following: Hospitalist: Dr Sosa. Independent interpretation of the following test(s) in the Emergency Department EKG: See my EKG interpretation above Rhythm Strip Interpretation Rate: 88BPM Rhythm: regular. Care significantly affected by the following chronic conditions: Diabetes, Hypertension, Chronic Kidney Disease. Counseling: I had a detailed discussion with the patient and/or guardian regarding the historical points, exam findings, and any diagnostic results supporting the discharge/admit diagnosis, lab results, radiology results, the need for further work-up and treatment in the hospital. ED course: Discussed case with Dr Sosa and he accepts patient. Discussed observation with patient and his and they understand/ agree with plan.. 11/24 12:59 Order name: glucometer results - FOR PT WITH NO ID; Complete Time: 13:28 nj1 11/24 13:01 Order name: Basic Metabolic Panel; Complete Time: 14:03 ms3 11/24 13:01 Order name: CBC with Diff; Complete Time: 13:28 ms3 11/24 13:01 Order name: Hepatic Function; Complete Time: 14:03 ms3 11/24 13:01 Order name: Magnesium; Complete Time: 14:03 ms3 11/24 13:01 Order name: Protime (+inr); Complete Time: 13:28 ms3 11/24 13:01 Order name: Ptt, Activated; Complete Time: 13:28 ms3 11/24 13:01 Order name: Troponin High Sensitivity; Complete Time: 14:03 ms3 11/24 15:53 Order name: Urinalysis w/ reflexes EDMS 11/24 15:53 Order name: Basic Metabolic Panel EDMS 11/24 15:53 Order name: Basic Metabolic Panel EDMS 11/24 15:53 Order name: Basic Metabolic Panel EDKY 11/24 15:53 Order name: Basic Metabolic Panel EDMS 11/24 15:53 Order name: Basic Metabolic Panel EDMS 11/24 15:53 Order name: Basic Metabolic Panel EDMS 11/24 15:53 Order name: CBC with Automated Diff EDMS 11/24 15:53 Order name: CBC with Automated Diff EDMS 11/24 15:53 Order name: CBC with Automated Diff EDMS 11/24 15:53 Order name: CBC with Automated Diff EDMS 11/24 15:53 Order name: CBC with Automated Diff EDMS 11/24 15:53 Order name: CBC with Automated Diff EDMS 11/24 15:53 Order name: Magnesium EDMS 11/24 15:53 Order name: Magnesium EDMS 11/24 15:53 Order name: Magnesium EDMS 11/24 15:53 Order name: Magnesium EDMS 11/24 15:53 Order name: Magnesium EDMS 11/24 15:53 Order name: Magnesium EDMS 11/24 15:53 Order name: Phosphorus EDMS 11/24 15:53 Order name: Phosphorus EDMS 11/24 15:53 Order name: Phosphorus EDMS 11/24 15:53 Order name: Phosphorus EDMS 11/24 15:53 Order name: Phosphorus EDMS 11/24 15:53 Order name: Phosphorus EDMS 11/24 15:53 Order name: Troponin High Sensitivity EDMS 11/24 15:53 Order name: Troponin High Sensitivity EDMS 11/24 15:53 Order name: Troponin High Sensitivity EDMS 11/24 13:01 Order name: Chest Single View XRAY; Complete Time: 14:52 ms3 11/24 13:03 Order name: CT Head C Spine; Complete Time: 14:52 ms3 11/24 15:55 Order name: ERT ORTHOSTATIC V/S EDMS 11/24 15:53 Order name: CONS Physician Consult EDMS 11/24 13:01 Order name: Cardiac monitoring; Complete Time: 13:10 ms3 11/24 13:02 Order name: EKG - Nurse/Tech; Complete Time: 13:12 ms3 11/24 13:02 Order name: IV Saline Lock; Complete Time: 13:10 ms3 11/24 13:02 Order name: Labs collected and sent; Complete Time: 13:10 ms3 11/24 13:02 Order name: NPO; Complete Time: 13:10 ms3 11/24 13:02 Order name: O2 Per Protocol; Complete Time: 13:10 ms3 11/24 13:02 Order name: O2 Sat Monitoring; Complete Time: 13:10 ms3 EC:59 Rate is 88 beats/min. Rhythm is regular. QRS [place] is Normal. [place] interval is normal. QRS ms3 interval is normal. Clinical impression: NSR w/ Non-specific ST/T Changes. Interpreted by me. Reviewed by me. Administered Medications: No medications were administered Disposition Summary: 11/25/23 14:59 Hospitalization Ordered Notes: Hospitalization Status: Observation ms3 Provider: Anthony Sosa ms3 Location: Telemetry/MedSurg (observation) ms3 Condition: Stable ms3 Problem: new ms3 Symptoms: are unchanged ms3 Bed/Room Type: Standard ms3 Room Assignment: 222(11/25/23 16:42) bd Diagnosis - Syncope Near ms3 - Dizziness and giddiness ms3 - Unspecified kidney failure ms3 Forms: - Medication Reconciliation Form ms3 - SBAR form ms3 - Leadership Thank You Letter ms3 Signatures: Dispatcher [employer] EDMS Randi Hill Heather, RN RN Kimo Nunez DO DO ms3 Corrections: (The following items were deleted from the chart) 12:59 12:59 GLUCATNOID ordered. EDMS EDMS 13:02 13:02 Chest Single View+RAD.RAD.BRZ ordered. EDMS EDMS 16:42 14:59 ms3 bd
--- NOTE | 2023-11-25 15:17 | P.HP ---
Certification for Inpatient Patient admitted to: Observation With expected LOS: <2 Midnights Patient will require the following post-hospital care: None Practitioner: I am a practitioner with admitting privileges, knowledge of patient current condition, hospital course, and medical plan of care. Services: Services provided to patient in accordance with Admission requirements found in Title 42 Section 412.3 of the Code of Federal Regulations Patient History Date of Service: 11/25/23 Reason for admission: Syncopal episode History of Present Illness: Acute on chronic renal failure acute on chronic renal failure Yony Torres is a 73-year-old male with past medical history of diabetes mellitusIDDM, right nephrectomy, bladder tumor, hyperlipidemia, hypertension who presents to the ED with chief complaint of syncopal episode while in preop holding to date. His reports having a syncopal episode on Friday, the day after starting Levaquin on . Of note, he had a right nephrectomy due to tumor present. Tumor did not result malignant. Now with bladder tumor present and scheduled surgical intervention on December [address]ford. Head CT without contrast report "No acute hemorrhage, hydrocephalus or extra- axial collection is identified.No areas of brain edema or midline shift.The paranasal sinuses and mastoids are clear.The calvarium is intact." CT cervical spine without contrast reports "No fracture or subluxation. Multilevel moderate degenerative changes, with variable degrees of neural foraminal narrowing, most pronounced on the right at C5-6 and on the left at C6- 7.No prevertebral soft tissues swelling is identified. IMPRESSION: No acute traumatic intracranial or cervical spine findings. Moderate multilevel cervical spine degenerative changes as above." Chest x-ray reports "The lungs are clear. No pneumothorax or effusion. The cardiomediastinal contours are unremarkable. IMPRESSION: No acute cardiopulmonary process." Yony will be admitted to hospitalist service for further evaluation and treatment, Dr. Herbert and Dr. Sanford consulted Allergies No Known Allergies Allergy (Verified 11/03/19 23:03) Home Medications: Insulin Detemir [Levemir Flextouch] 30 units SQ DAILY 11/03/19 Allopurinol 100 mg PO DAILY 11/04/19 Carvedilol [Coreg] 25 mg PO BID 11/04/19 Doxazosin Mesylate [Cardura] 2 mg PO DAILY 11/04/19 Hydralazine HCl [Apresoline] 100 mg PO BID 11/04/19 Aspirin [Aspirin EC] 1 tab PO DAILY 11/25/23 Atorvastatin Calcium 20 mg PO DAILY 11/25/23 Bumetanide 2 mg PO DAILY 11/25/23 Ferrous Sulfate 325 mg PO DAILY 11/25/23 Finerenone [Kerendia] 10 mg PO DAILY 11/25/23 Folic Acid 0.4 mg PO DAILY 11/25/23 Insulin Detemir [Levemir] 10 unit SQ BEDTIME 11/25/23 Levofloxacin [Levaquin] 250 mg PO DAILY 11/25/23 - Past Medical/Surgical History Diabetic: Yes -: Diabetes -: htn -: cyst right kidney -: knee replacement 2009 -: Amputation finger 1980 -: Spinal surgery (bonnet screws) 2013 -: Right nephrectomy - Social History Smoking Status: Never smoker Alcohol use: No CD- Drugs: No Caffeine use: Yes Review of Systems General: Weakness Neurological: Other (Dizziness) Physical Examination - Physical Exam General: Alert, In no apparent distress, Oriented x3 HEENT: Atraumatic, Normocephalic, PERRLA Neck: Supple, 2+ carotid pulse no bruit, JVD not distended Respiratory: Clear to auscultation bilaterally, Normal air movement Cardiovascular: Normal pulses, Regular rate/rhythm, Normal S1 S2 Capillary refill: <2 Seconds Gastrointestinal: Normal bowel sounds, Soft and benign Musculoskeletal: No swelling Integumentary: No rashes Neurological: Normal speech, Normal tone - Studies Laboratory Data (last 24 hrs) 11/25/23 11/25/23 11/25/23 13:08 13:08 13:08 WBC 12.50 H Hgb 9.8 L Hct 30.4 L Plt Count 302 PT 13.4 H INR 1.23 APTT 29.3 Sodium 139 Potassium 4.1 BUN 87 H Creatinine 5.68 H Glucose 118 H Magnesium 1.8 Total Bilirubin 0.4 AST < 10 L ALT < 14 L Alkaline Phosphatase 75 Assessment and Plan - Plan Assessment and plan Syncopal episode -Head CT without contrast report "No acute hemorrhage, hydrocephalus or extra- axial collection is identified.No areas of brain edema or midline shift.The paranasal sinuses and mastoids are clear.The calvarium is intact." -CT cervical spine without contrast reports "No fracture or subluxation. Multilevel moderate degenerative changes, with variable degrees of neural foraminal narrowing, most pronounced on the right at C5-6 and on the left at C6- 7.No prevertebral soft tissues swelling is identified. IMPRESSION: No acute traumatic intracranial or cervical spine findings. Moderate multilevel cervical spine degenerative changes as above." -Orthostatic vitals -Echocardiogram -Gentle IV fluids -Troponin 9.7, serial pending -Continuous telemetry Acute on chronic kidney injury History of right nephrectomy History of hydronephrosis October 2023 Bladder tumor -Gentle IV fluids -BUN/creatinine 87/5.68, GFR 10 -Consult Dr. Herbert and Dr. Ho Diabetes mellitusIDDM -Accu-Chek with sliding scale insulin -Serum glucose 118 History of hypertension History of hyperlipidemia -Continue home medication DVT PPx SCDs Full code LOS 24 hours Discharge Plan: Home Plan to discharge in: 24 Hours - Advance Directives Does patient have a Living Will: No Does patient have a Durable POA for Healthcare: No
[2023-11-25] MEDS: INSULIN REGULAR (HUMAN) 100 UNIT/ML SQ SCH (16:30)
[2023-11-25] MEDS: NA CHLORIDE 0.9% 1,000 ML IV SCH (18:08)
[2023-11-25] MEDS: INSULIN GLARGINE 100 UNIT/ML SQ SCH (22:34)
[2023-11-25 23:36] VITALS: BMI 25.0
[2023-11-25 23:50] LABS: Specific Gravity 1.011 (1.005-1.030); Sqamous Epithelial <5 /HPF (None Seen); Urine Bacteria None Seen /HPF (<20); Urine Bilirubin NEGATIVE (Negative); Urine Blood Trace (Negative); Urine Clarity Extremely Turbid (Clear); Urine Color Light-Yellow (Yellow); Urine Culture Reflex Order REFLEXED; Urine Glucose TRACE (Negative); Urine Ketones NEGATIVE (Negative); Urine Microscopic Reflex YN ORDER UMIC; Urine Mucus Slight /HPF (None Seen); Urine Nitrite NEGATIVE (Negative); Urine Protein 1+ (Negative); Urine Urobilinogen Normal (Normal); Urine WBC >50 /HPF (<5); Urine WBC Clump Few /HPF (None Seen); Urine pH 5.5 (5.0-7.0)
[2023-11-26 04:00] LABS: Absolute Basophils 0.1 K/uL (0-0.5); Absolute Eosinophils 0.4 K/uL (0-0.5); Absolute Lymphocytes (CBC) 1.7 K/uL (0.7-4.9); Absolute Monocytes 1.1 K/uL (0.1-1.3); Absolute Neutrophil 7.9 K/uL (1.8-8.0); Basophils % 0.7 % (0-1.3); Eosinophils % 3.7 % (0-4.4); Hematocrit 25.5 % (39.6-49.0); Hemoglobin 8.3 g/dL (13.6-17.9); MCH 28.5 pg (27.0-35.0); MCHC 32.6 g/dL (32.0-36.0); MCV 87.6 fL (80-100); MPV 8.1 fL (7.6-11.3); Monocytes % 10.1 % (3.3-12.3); Neutrophils % 70.5 % (41.7-73.7); Platelets 262 thou/uL (152-406); RBC Red Blood Cell Count 2.91 M/uL (4.33-5.43); Red Cell Distribution Width 13.8 % (12.1-15.2)
[2023-11-26 04:44] LABS: Anion Gap 9.3 mEq/L (5.0-15.0); Potassium 4.3 mEq/L (3.5-5.1)
[2023-11-26 04:45] LABS: Magnesium 1.7; Troponin High Sensitivity 9.9 (<58.9)
--- NOTE | 2023-11-26 06:35 | P.PN ---
Date of Service: 11/26/23 Subjective Awake and reports able to walk to the bathroom without falling Denies dizziness Kidney function showed mild improvement, will continue with gentle IV fluids ROS 10 point ROS as noted above, otherwise negative Physical Exam General: Alert and oriented x3, no acute distress, calm HEENT: Atraumatic, Normocephalic, PERRLA Neck: Supple, 2+ carotid pulse no bruit, JVD not distended Respiratory: Clear to auscultation bilaterally, Normal air movement Cardiovascular: Normal pulses, NSR, Normal S1 S2 present Capillary refill: <2 Seconds Gastrointestinal: Normal bowel sounds, Soft and benign on palpation, ND Musculoskeletal: No swelling Integumentary: No rashes Neurological: Normal speech, Normal tone Vitals Reviewed Problem list Syncopal episode Acute on chronic kidney injury History of right nephrectomy History of hydronephrosis October 2023 Bladder tumor Diabetes mellitusIDDM History of hypertension History of hyperlipidemia Assessment and Plan Syncopal episode -Head CT without contrast report "No acute hemorrhage, hydrocephalus or extra- axial collection is identified.No areas of brain edema or midline shift.The paranasal sinuses and mastoids are clear.The calvarium is intact." -CT cervical spine without contrast reports "No fracture or subluxation. Multilevel moderate degenerative changes, with variable degrees of neural foraminal narrowing, most pronounced on the right at C5-6 and on the left at C6- 7.No prevertebral soft tissues swelling is identified. IMPRESSION: No acute traumatic intracranial or cervical spine findings. Moderate multilevel cervical spine degenerative changes as above." -Orthostatic vitals -Echocardiogram reports "normal left ventricular function, ejection fraction 60- 65%, normal wall motion, normal diastolic dysfunction.' -continue Gentle IV fluids -Troponin 9.7/9.1/9.9 -Continuous telemetry- NSR Acute on chronic kidney injury History of right nephrectomy History of hydronephrosis October 2023 Bladder tumor Urinary tract infection -Gentle IV fluids -BUN/creatinine 90/5.48, GFR 10- minimal improvement -Consult Dr. Herbert, Follow up with Dr. Ho outpatient -UA with leukocyte Esterase 500, nitrite neg, WBC > 50-Rocephin started Diabetes mellitusIDDM -Accu-Chek with sliding scale insulin -Serum glucose 192 History of hypertension History of hyperlipidemia -Continue home medication DVT PPx SCDs Full code LOS 24 hours
[2023-11-26] MEDS ORDERED: HOME MED 1 EA UNK (Folic Acid [Folic Acid] 0.4 MG Tablet) PO SCH (09:00)
[2023-11-26] MEDS: MAGNESIUM SULFATE 1 gm IVPB 1 GM/100 ML BAG IV ONE (09:09)
[2023-11-26] MEDS: CEFTRIAXONE 1,000 MG in NA CHLORIDE 0.9% 50 ML IVPB SCH (09:09)
[2023-11-26] MEDS: ATORVASTATIN 20 MG TAB PO SCH (09:10)
[2023-11-26] MEDS: FOLIC ACID 1 MG TABLET PO SCH (09:10)
[2023-11-26] MEDS: INSULIN GLARGINE 100 UNIT/ML SQ SCH (09:10)
[2023-11-26] MEDS: allopurinoL 100 MG TAB PO SCH (09:10)
--- NOTE | 2023-11-26 12:06 | ECHO ---
HEIGHT: 6 ft 3 in WEIGHT: 200 lb 0 oz DATE OF STUDY: 11/25/ REFER DR: Mi Rousseau NP 2-DIMENSIONAL: YES M.MODE: YES DOPPLER: YES COLOR FLOW: YES TDS: PORTABLE: YES DEFINITY: BUBBLE STUDY: DIAGNOSIS: MULTIPLE SYNCOPAL EPISODES CARDIAC HISTORY: CATHERIZATION: NO SURGERY: NO PROSTHETIC VALVE: NO PACEMAKER: NO MEASUREMENTS (cm) DIASTOLIC (NORMALS) SYSTOLIC (NORMALS) IVSd 1.1 (0.6-1.2) LA Diam 2.1 (1.9-4.0) LVEF 60-65% LVIDd 5.1 (3.5-5.7) LVIDs 3.4 (2.0-3.5) %FS 33% LVPWd 1.1 (0.6-1.2) Ao Diam 3.1 (2.0-3.7) 2 DIMENSIONAL ASSESSMENT: RIGHT ATRIUM: NORMAL LEFT ATRIUM: NORMAL RIGHT VENTRICLE: NORMAL LEFT VENTRICLE: NORMAL TRICUSPID VALVE: TRACE TRICUSPID REGURGITATION MITRAL VALVE: NORMAL PULMONIC VALVE: NORMAL AORTIC VALVE: NORMAL PERICARDIAL EFFUSION: NONE AORTIC ROOT: NORMAL LEFT VENTRICULAR WALL MOTION: NORMAL DOPPLER/COLOR FLOW: NORMAL COMMENTS: 1. NORMAL LEFT VENTRICULAR FUNCTION, EJECTION FRACTION 60-65%, NORMAL WALL MOTION 2. NORMAL DIASTOLIC FUNCTION TECHNOLOGIST: DANIEL JAQUEZ
--- NOTE | 2023-11-26 16:41 | CON ---
Date of Consultation: 11/26/2023 Reason For Consultation: Elevated BUN and creatinine, fluid management. History Of Present Illness: This is a pleasant 73-year-old gentleman, well known to me [facility] with significant past medical history of renal cell CA, status post nephrectomy in September 1999, alesha trammell since 1999, with neuropathy and nephropathy, osteoarthritis, chronic kidney disease stage 4 sec ondary to renal mass loss, diabetes, nephropathy, chronic obstructive uropathy, baseline creatinine. Last time was seen in the office back in October, creatinine 4.1 with GFR 15. Patient was in his [facility] state of health. Patient planned for cystoscopy and with the stent for his hydronephrosis. The pa john came for workup for preop. Had presyncopal episode. For that reason, went to the ER. Upon ar rival to the ER, patient found to have elevation in BUN and creatinine. For that reason, patient was admitted. Patient denied taking any nonsteroidal. No IV contrast. Last visit, the patient had hyp erkalemia. The patient not on any diuresis. Past Medical History: Include: 1.Hypertension. 2.Chronic kidney disease, stage 4/5 secondary to renal mass loss and nephrectomy/diabetes nephropath y/chronic obstructive uropathy. 3.Renal cyst. 4.Hydronephrosis. Past Surgical History: Include knee replacement, amputation, spinal surgery, right nephrectomy. Social History: Denied smoking. Denied drinking. Denied drugs abuse. Home Medications: Include insulin, allopurinol, carvedilol, doxazosin, hydralazine, atorvastatin, Bu p[place], Kerendia, folic acid, levofloxacin. Review of Systems: Head and Neck: Has lightheaded. GI: No nausea. No vomiting. : No polyuria. No dysuria. No hematuria. WAREHOUSE PICKER: Not applicable. Respiratory: No shortness of breath. Cardiovascular: Has a presyncope. Neuro: Has dizziness and presyncope. Musculoskeletal: Generalized fatigue. Physical Examination: Vital Signs: When I saw the patient, blood pressure 153/85, pulse of 84, afebrile. Chest: Clear to auscultation. Heart: S1, S2. Systolic murmur. Abdomen: Soft, nontender. Extremity: No edema. Neurologic: Alert. No focality. Laboratory Data: WBC 11.2, hemoglobin 8.3, sodium 138, potassium 4.3, bicarb 27, BUN 90, creatinine 5.4, yesterday it was 5.6. GFR 17, calcium 8.3, phosphorus 5, magnesium 1.7. WBC 11.2, hemoglobin 8 .3. Current Medications: The patient on ceftriaxone, atorvastatin, folic acid, normal saline at 75 per h our. Assessment And Plan: 1.Acute kidney injury secondary to prerenal, dehydration. I agree with holding the Bumex and Kerend ia. No uremic symptoms. No hyperkalemia or acidosis. I do not see the need to initiate any renal r eplacement therapy. We will continue to monitor the patient. 2.Hypertension, controlled, optimal. We will continue to monitor. 3.Hyperkalemia, resolved. 4.Obstructive uropathy. Patient will follow up with Urology about cystoscopy. 5.Presyncope. We will follow up with Cardiology. ZEINA Voice ID: [id number] Report ID: [id number]
[2023-11-26] MEDS: carvediloL 25 MG TAB PO SCH (21:09)
[2023-11-27 04:12] LABS: Absolute Basophils 0.1 K/uL (0-0.5); Absolute Eosinophils 0.4 K/uL (0-0.5); Absolute Lymphocytes (CBC) 1.3 K/uL (0.7-4.9); Absolute Monocytes 0.8 K/uL (0.1-1.3); Absolute Neutrophil 7.3 K/uL (1.8-8.0); Eosinophils % 3.7 % (0-4.4); Hematocrit 24.6 % (39.6-49.0); Hemoglobin 8.3 g/dL (13.6-17.9); Lymphocytes % 13.4 % (15.3-44.8); MCH 29.3 pg (27.0-35.0); MCHC 33.6 g/dL (32.0-36.0); MCV 87.2 fL (80-100); MPV 7.5 fL (7.6-11.3); Monocytes % 7.9 % (3.3-12.3); Nucleated Red Blood Cells % 0.1 % (0-0); Platelets 264 thou/uL (152-406); RBC Red Blood Cell Count 2.82 M/uL (4.33-5.43); Red Cell Distribution Width 14.2 % (12.1-15.2)
[2023-11-27 04:26] LABS: Albumin 2.5 g/dL (3.4-5.0); Anion Gap 8.2 mEq/L (5.0-15.0); Magnesium 1.9 mg/dL (1.6-2.4); Phosphorus 4.2 mg/dL (2.5-4.9); Potassium 4.2 mEq/L (3.5-5.1)
--- NOTE | 2023-11-27 06:45 | P.PN ---
Date of Service: 11/27/23 Subjective ROS 10 point ROS as noted above, otherwise negative Physical Exam General: Alert and oriented x3, no acute distress, calm HEENT: Atraumatic, Normocephalic, PERRLA Neck: Supple, 2+ carotid pulse no bruit, JVD not distended Respiratory: Clear to auscultation bilaterally, Normal air movement Cardiovascular: Normal pulses, NSR, Normal S1 S2 present Capillary refill: <2 Seconds Gastrointestinal: Normal bowel sounds, Soft and benign on palpation, ND Musculoskeletal: No swelling Integumentary: No rashes Neurological: Normal speech, Normal tone Vitals Reviewed Problem list Syncopal episode Acute on chronic kidney injury History of right nephrectomy History of hydronephrosis October 2023 Bladder tumor Diabetes mellitusIDDM History of hypertension History of hyperlipidemia Assessment and Plan Syncopal episode -Head CT without contrast report "No acute hemorrhage, hydrocephalus or extra- axial collection is identified.No areas of brain edema or midline shift.The paranasal sinuses and mastoids are clear.The calvarium is intact." -CT cervical spine without contrast reports "No fracture or subluxation. Multilevel moderate degenerative changes, with variable degrees of neural foraminal narrowing, most pronounced on the right at C5-6 and on the left at C6- 7.No prevertebral soft tissues swelling is identified. IMPRESSION: No acute traumatic intracranial or cervical spine findings. Moderate multilevel cervical spine degenerative changes as above." -Orthostatic vitals -Echocardiogram reports "normal left ventricular function, ejection fraction 60- 65%, normal wall motion, normal diastolic dysfunction.' -continue Gentle IV fluids -Troponin 9.7/9.1/9.9 -Continuous telemetry- NSR Acute on chronic kidney injury History of right nephrectomy History of hydronephrosis October 2023 Bladder tumor Urinary tract infection -Gentle IV fluids -BUN/creatinine 90/5.48, GFR 10- minimal improvement -Consult Dr. Herbert, Follow up with Dr. Ho outpatient -UA with leukocyte Esterase 500, nitrite neg, WBC > 50-Rocephin started Diabetes mellitusIDDM -Accu-Chek with sliding scale insulin -Serum glucose 192 History of hypertension History of hyperlipidemia -Continue home medication DVT PPx SCDs Full code LOS 24 hours
--- NOTE | 2023-11-27 12:14 | EKG ---
Test Date: 2023-11-25 Test Time: 18:36:01 Director Of Physical Security: DIEGO MEASUREMENT RESULTS: Intervals: Rate: 86 SD: 174 QRSD: 84 QT: 370 QTc: 442 [place]: P: 81 SD: 174 QRS: 90 T: 76 INTERPRETIVE STATEMENTS: Normal sinus rhythm Rightward axis ST elevation, probably due to early repolarization Borderline ECG Compared to ECG 11/25/2023 13:09:24 Right-axis deviation now present ST (T wave) deviation now present Early repolarization now present Myocardial infarct finding no longer present T-wave abnormality no longer present Possible ischemia no longer present Electronically Signed On 11-27-23 12:13:41 CDT by Raul Ospina
--- NOTE | 2023-11-27 12:16 | EKG ---
Test Date: 2023-11-25 Test Time: 13:09:24 Director Of Personnel: IVIS MEASUREMENT RESULTS: Intervals: Rate: 88 [place]: 184 QRSD: 84 QT: 398 QTc: 481 [place]: P: 64 [place]: 184 QRS: 27 T: -9 INTERPRETIVE STATEMENTS: Normal sinus rhythm Cannot rule out Anterior infarct, age undetermined T wave abnormality, consider inferior ischemia Abnormal ECG Compared to ECG 01/15/2017 16:03:35 Myocardial infarct finding now present T-wave abnormality now present Possible ischemia now present Left ventricular hypertrophy no longer present Electronically Signed On 11-27-23 12:14:11 CDT by Raul Ospina
--- NOTE | 2023-11-27 14:27 | P.DS ---
Admission Date: 11/26/23 Discharge Date: 11/27/23 Disposition: ROUTINE DISCHARGE Discharge Condition: FAIR Reason for Admission: Syncopal episode Brief History of Present Illness: Diagnosis Syncopal episode Acute on chronic kidney injury History of right nephrectomy History of hydronephrosis October 2023 Bladder tumor Urinary tract infection Diabetes mellitusIDDM History of hypertension History of hyperlipidemia HPI 11/25/23 Yony Torres is a 73-year-old male with past medical history of diabetes mellitusIDDM, right nephrectomy, bladder tumor, hyperlipidemia, hypertension who presents to the ED with chief complaint of syncopal episode while in preop holding to date. His reports having a syncopal episode on Friday, the day after starting Levaquin on . Of note, he had a right nephrectomy due to tumor present. Tumor did not result malignant. Now with bladder tumor present and scheduled surgical intervention on December [address]ford[address] Head CT without contrast report "No acute hemorrhage, hydrocephalus or extra- axial collection is identified.No areas of brain edema or midline shift.The paranasal sinuses and mastoids are clear.The calvarium is intact." CT cervical spine without contrast reports "No fracture or subluxation. Multilevel moderate degenerative changes, with variable degrees of neural foraminal narrowing, most pronounced on the right at C5-6 and on the left at C6- 7.No prevertebral soft tissues swelling is identified. IMPRESSION: No acute traumatic intracranial or cervical spine findings. Moderate multilevel cervical spine degenerative changes as above." Chest x-ray reports "The lungs are clear. No pneumothorax or effusion. The cardiomediastinal contours are unremarkable. IMPRESSION: No acute cardiopulmonary process." Yony will be admitted to hospitalist service for further evaluation and treatment, Dr. Herbert and Dr. Sanford consulted Hospital Course: Yony Torres is a pleasant 73 year old male with a past medical history significant for diabetes mellitusIDDM, right nephrectomy, chronic renal failure, bladder tumor, hyperlipidemia, hypertension who was admitted to the [facility] on 11/25/23 for syncopal episodes. Yony Torres presented to the ED with chief complaint of syncopal episode x2. During this admission, CT scans negative for acute process, kidney function has decreased and was successfully treated. Echo is negative for heart dysfunction. Is tolerating p.o. diet, ambulating independently without dizziness or feeling faint, urinating without difficulty, and hemodynamically stable for discharge. Yony should remain hydrated to continue to aid your kidney function. Use caution while ambulating and do not drive until complete understanding of the cause of these syncopal episodes. Mild UTI was revealed and ciprofloxacin has been prescribed. On 11/27/2023, Yony was seen on morning rounds and deemed medically stable for discharge. Yony was discharged with instructions to schedule follow-up appointments with Dr. Herbert and PCP. The patient and family members were given the opportunity to ask questions and reported no further questions. Furthermore, all questions were answered to the best of my ability. A copy of this discharge summary will be sent to the above providers to facilitate continuity of care. Physical Exam General: AAO x3, NAD, calm HEENT: Atraumatic, Normocephalic, PERRLA Neck: Supple, 2+ carotid pulse no bruit, JVD not distended Respiratory: Clear to auscultation bilaterally, symmetrical chest wall movement, on RA Cardiovascular: NSR, Normal S1 S2 present, no murmur noted Capillary refill: <2 Seconds Gastrointestinal: Normal bowel sounds, Soft and benign on palpation, ND Musculoskeletal: No swelling, 2+ peripheral pulses Integumentary: No rashes Neurological: Normal speech, Normal tone Vital Signs/Physical Exam: Temp Pulse Resp BP Pulse Ox 98.1 F 88 17 153/82 H 96 11/27/23 11:52 11/27/23 09:45 11/27/23 11:52 11/27/23 11:52 11/27/23 11:52 Laboratory Data at Discharge: WBC 9.80 thou/uL (4.3-10.9) 11/27/23 03:49 Hgb 8.3 g/dL (13.6-17.9) L 11/27/23 03:49 Hct 24.6 % (39.6-49.0) L 11/27/23 03:49 Plt Count 264 thou/uL (152-406) 11/27/23 03:49 PT 13.4 SECONDS (9.5-12.5) H 11/25/23 13:08 INR 1.23 11/25/23 13:08 APTT 29.3 SECONDS (24.3-36.9) 11/25/23 13:08 Sodium 142 mEq/L (136-145) 11/27/23 03:49 Potassium 4.2 mEq/L (3.5-5.1) 11/27/23 03:49 BUN 80 mg/dL (7-18) H 11/27/23 03:49 Creatinine 4.56 mg/dL (0.70-1.30) H 11/27/23 03:49 Glucose 121 mg/dL (74-106) H 11/27/23 03:49 Phosphorus 4.2 mg/dL (2.5-4.9) 11/27/23 03:49 Magnesium 1.9 mg/dL (1.6-2.4) 11/27/23 03:49 Total Bilirubin 0.4 mg/dL (0.2-1.0) 11/25/23 13:08 AST < 10 U/L (15-37) L 11/25/23 13:08 ALT < 14 U/L (16-61) L 11/25/23 13:08 Alkaline Phosphatase 75 U/L (45-117) 11/25/23 13:08 Home Medications: Insulin Detemir [Levemir Flextouch] 30 units SQ DAILY 11/03/19 Allopurinol 100 mg PO DAILY 11/04/19 Carvedilol [Coreg] 25 mg PO BID 11/04/19 Doxazosin Mesylate [Cardura] 2 mg PO DAILY 11/04/19 Hydralazine HCl [Apresoline] 100 mg PO BID 11/04/19 Aspirin [Aspirin EC] 1 tab PO DAILY 11/25/23 Atorvastatin Calcium 20 mg PO DAILY 11/25/23 Ferrous Sulfate 325 mg PO DAILY 11/25/23 Folic Acid 0.4 mg PO DAILY 11/25/23 Insulin Detemir [Levemir] 10 unit SQ BEDTIME 11/25/23 Ciprofloxacin HCl [Cipro 500 MG Tablet] 500 mg PO BID 5 Days #10 tab 11/27/23 New Medications: Ciprofloxacin HCl [Cipro 500 MG Tablet] 500 mg PO BID 5 Days #10 tab Physician Discharge Instructions: Yony Torres presented to the ED with chief complaint of syncopal episode x2. During this admission, CT scans negative for acute process, kidney function has decreased and was successfully treated. Echo is negative for heart dysfunction. Remain hydrated to continue to aid your kidney function. Use caution while ambulating and do not drive until complete understanding of the cause. Mild UTI was revealed and ciprofloxacin has been prescribed. 1. Please call and schedule a follow-up appointment with your PCP in 3-5 days - Please follow-up with your PCP for medication refills/adjustments 2. Please call and schedule a follow-up appointment with Dr. Herbert in 3-5 days 3. Continue with plans for surgical procedure with Dr. Sanford 4. Continue renal diet, stay hydrated 5. Activity restrictions, fall precautions with frequent falls in recent history 6. Return to the ED if symptoms worsen Stop taking bumex and kerendia until further addressed by Dr. Herbert New medication Ciprofloxacin 500 mg PO twice a day x 5 days Followup: Patricia Mejia MD [Primary Care Provider] -
[2023-11-27 15:12] VITALS: O2SAT 96
[2023-11-27 16:26] VITALS: TEMP 98.5
[2023-11-27] MEDS: HYDRALAZINE HCL 20 MG/ML VIAL IV PRN (17:42)
[2023-11-27 19:20] VITALS: BP 164/78
--- NOTE | 2023-11-27 23:01 | PN ---
Date of Progress Note: 11/27/2023 Chief Complaint: Elevated BUN and creatinine, acute on chronic kidney injury. History Of Present Illness: The patient has chronic kidney disease stage 4, advancing to stage 5 due to renal mass loss; nephrectomy; diabetes; nephropathy; and chronic obstructive uropathy. The patie nt is a 73-year-old man with past medical history of renal cell carcinoma, status post nephrectomy in September 1999; diabetes mellitus, diagnosed back in 1999; peripheral neuropathy; nephropathy; osteoarth ritis; chronic kidney disease stage 4. The patient presented to the hospital because of generalized weakness. Recent blood work done outpatient showed creatinine level of 4.1 and GFR of 15. The patie nt was to have a cystoscopy with stent placement for hydronephrosis. He had presyncopal episode. He went to emergency room. Upon arrival to emergency room, the patient was found to have elevated BUN and creatinine. He denies nonsteroidal anti-inflammatory medication, and denies contrast exposure. Review of Systems: Denies chest pain, palpitation. Physical Examination: Lungs: Clear to auscultation bilaterally. Heart: S1, S2. Abdomen: Soft, benign. Extremities: No edema. Impression And Plan: 1.Acute on chronic kidney injury. Acute kidney injury secondary to volume depletion. Continue IV f luids. Bumex is currently stopped. The patient does not have uremic symptoms. There is no hyperkal emia. There is no metabolic acidosis. The patient was instructed to avoid nonsteroidal anti-inflamm atory medication. IV fluid rate was increased today. 2.Hypertension, controlled. Continue to monitor. 3.Hyperkalemia, resolved. Continue low-potassium diet. The patient needs a close followup with [facility]. 4.Obstructive uropathy. The patient will follow up with Urology regarding cystoscopy. 5.Presyncope. The patient is to see baton teacher. DANIEL/MATTHEW Voice ID: [id number] Report ID: [id number]
== END 2023-11-27 19:15 | disposition home or self-care (01) | DRG 683 ==
LOC: ER 12:55 → ERHOLD 15:46 → 2ND 16:52 → OBSVTOIN 11-26 16:48
PROVIDERS: ADMIT Internal Medicine; ATTEND Internal Medicine
DX: N17.9 Acute kidney failure, unspecified (principal); N39.0 Urinary tract infection, site not specified; I12.9 Hypertensive chronic kidney disease with stage 1 through stage 4 chronic kidney disease, or unspecified chronic kidney disease; N18.4 Chronic kidney disease, stage 4 (severe); E11.22 Type 2 diabetes mellitus with diabetic chronic kidney disease; E11.40 Type 2 diabetes mellitus with diabetic neuropathy, unspecified; E87.5 Hyperkalemia; E78.00 Pure hypercholesterolemia, unspecified; E86.9 Volume depletion, unspecified; N13.9 Obstructive and reflux uropathy, unspecified; E86.0 Dehydration; D49.9 Neoplasm of unspecified behavior of unspecified site; Z79.82 Long term (current) use of aspirin; Z79.02 Long term (current) use of antithrombotics/antiplatelets; Z90.5 Acquired absence of kidney; Z79.4 Long term (current) use of insulin; Z79.899 Other long term (current) drug therapy; Z96.659 Presence of unspecified artificial knee joint; Z89.029 Acquired absence of unspecified finger(s)
CPT/HCPCS: 36415; 70450; 71045; 72125; 80048; 80069; 80076; 81001; 82947; 83735; 84100; 84484; 85025; 85610; 85730; 87086; 87088; 93005; 93306; 99285; G0378; J0360; J0696; J3475; J7030

== ENCOUNTER 2023-12-09 09:46 | Day surgery (SDC) | payer OTHER ==
[2023-12-09] MEDS ORDERED: NA CHLORIDE 0.9% 1,000 ML ONE (10:12)
[2023-12-09] MEDS ORDERED: propofoL 200 MG/20 ML VIAL IV ONE (11:29)
[2023-12-09] MEDS ORDERED: FENTANYL CITR 100 MCG/2 ML ONE (11:29)
[2023-12-09] MEDS ORDERED: ROCURONIUM 50 MG/5 ML VIAL IV ONE (11:30)
[2023-12-09] MEDS ORDERED: LIDOCAINE 1% MPF 5 ML VIAL ONE (11:30)
[2023-12-09] MEDS ORDERED: CEFAZOLIN SODIUM 2 GM/VIAL ONE (11:38)
[2023-12-09] MEDS: CEFAZOLIN SODIUM 2 GM/VIAL IVPB ONE (12:11)
[2023-12-09] MEDS ORDERED: GLYCOPYRROLATE 0.2 MG/ML SYR ONE ×2 (13:13→13:39)
[2023-12-09] MEDS: Gemcitabine 26.3 ML IV ONE (13:28)
[2023-12-09] MEDS ORDERED: NEOSTIGMINE 1 MG/ML -10 ML VIAL ONE (13:39)
[2023-12-09] MEDS ORDERED: ONDANSETRON 4 MG/2 ML VIAL ONE (13:41)
[2023-12-09] MEDS: NA CHLORIDE 0.9% 1,000 ML ONE (13:54)
[2023-12-09 15:01] VITALS: O2SAT 97
[2023-12-09 15:09] LABS: Hematocrit 25.1 % (39.6-49.0)
[2023-12-09] MEDS ORDERED: PHENAZOPYRIDINE 100MG TAB PO ONE (15:39)
[2023-12-09] MEDS ORDERED: HYDROCODONE/APAP 5/325 MG TAB ONE (15:39)
[2023-12-09] MEDS: PHENAZOPYRIDINE 100MG TAB PO ONE (15:56)
[2023-12-09] MEDS: LIDOCAINE JELLY 2% 5 ML SYRINGE TOP ONE (15:58)
[2023-12-09] MEDS: HYDROCODONE/APAP 5/325 MG TAB PO PRN (15:58)
--- NOTE | 2023-12-09 16:51 | P.CNS ---
Date of Consult: 12/09/23 Chief Complaint: transiet hypotension with rhythm change History of Present Illness: Patient with PMH of HTN, DM presented for bladder surgery soon after procedure, patient became hypotensive and had transient rhythm changes, patient denies having any chest pain, no SOB, no palpitations. Allergies No Known Allergies Allergy (Verified 12/09/23 11:11) Home Medications: Insulin Detemir [Levemir Flextouch] 30 units SQ DAILY 11/03/19 Allopurinol 100 mg PO DAILY 11/04/19 Carvedilol [Coreg] 25 mg PO BID 11/04/19 Doxazosin Mesylate [Cardura] 2 mg PO DAILY 11/04/19 Hydralazine HCl [Apresoline] 100 mg PO BID 11/04/19 Aspirin [Aspirin EC] 1 tab PO DAILY 11/25/23 Atorvastatin Calcium 20 mg PO DAILY 11/25/23 Ferrous Sulfate 325 mg PO DAILY 11/25/23 Folic Acid 0.4 mg PO DAILY 11/25/23 Insulin Detemir [Levemir] 10 unit SQ BEDTIME 11/25/23 Ciprofloxacin HCl [Cipro 500 MG Tablet] 500 mg PO BID 5 Days #10 tab 11/27/23 Arthrozene 1 tab PO DAILY 12/02/23 Bumetanide 2 mg PO DAILY 12/02/23 Finerenone [Kerendia] 10 mg PO DAILY 12/02/23 Hydrocodone 5/APAP 325 [[place] 5/325*] 1 tab PO Q6H PRN #15 tab 12/09/23 Smz./Tmp. [Bactrim Ds 800 MG/160 MG] 1 tab PO BID #10 tab 12/09/23 - Past Medical/Surgical History Diabetic: Yes -: Diabetes -: htn -: cyst to right kidney -: HLD -: knee replacement 2009 -: Amputation finger 1980 -: Spinal surgery (bonnet screws) 2013 -: Right nephrectomy - Social History Alcohol use: No CD- Drugs: No Caffeine use: No Review of Systems 10-point ROS is otherwise unremarkable Physical Examination Temp Pulse Resp BP Pulse Ox 97.2 F 84 18 130/63 97 12/09/23 14:48 12/09/23 14:48 12/09/23 15:58 12/09/23 14:38 12/09/23 15:58 General: Alert, In no apparent distress HEENT: Atraumatic, PERRLA, Mucous membr. moist/pink, EOMI, Sclerae nonicteric Neck: Supple, 2+ carotid pulse no bruit, No LAD, Without JVD or thyroid abnormality Respiratory: Clear to auscultation bilaterally, Normal air movement Cardiovascular: Regular rate/rhythm, Normal S1 S2 Gastrointestinal: Normal bowel sounds, No tenderness Musculoskeletal: No tenderness Integumentary: No rashes Neurological: Normal gait, Normal speech, Normal tone, Normal affect Lymphatics: No axilla or inguinal lymphadenopathy Laboratory Data (last 24 hrs) 12/09/23 14:42 Hgb 8.0 L Hct 25.1 L - Problems (1) Regular wide QRS complex tachycardia Current Visit: Yes Status: Acute Plan: Patient EKG reviewed and shows junctional rhythm with LBBB morphology, transient and resolved, patient is chest pain free and Troponin is negative, recent echo is normal but patient got multiple risk factors for CAD so advised that he will need to follow up with cardiology in clinic for stress test soon. Patient can be discharged with close cardiology follow up.
[2023-12-09 17:46] VITALS: BP 136/61; TEMP 96.9
--- NOTE | 2023-12-09 20:58 | OP ---
Surgeon: ZACK CHEW Preoperative Diagnoses: 1.Bladder tumor. 2.Left hydronephrosis. Postoperative Diagnoses: 1.Bladder tumor, extensive, greater than 7 cm diameter. 2.Left hydronephrosis. Procedures: 1.Transurethral resection of a bladder tumor, extensive, greater than 7 cm. 2.Placement of urethral Renae catheter. 3.Instillation of gemcitabine 2 g in 50 cc normal saline intravesical chemotherapy. Findings: Large bladder tumor extending from the right gian-trigone across into the left lateral wal l, obscuring the left ureteral orifice and extending into the anterior lateral wall and left posterio r wall of the bladder. Specimens Taken: Included the followin.Bladder tumor. 2.Base of bladder tumor resection site. 3.Left ureteral orifice resection in stages. Indication For Procedure: Mr. 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 He unde rwent cystoscopic evaluation that revealed a large bladder tumor occupying the trigone extending into the left lateral wall and posteriorly of his bladder, and he had left-sided hydronephrosis identifie d on CT. He was thus counseled on the need for resection of the tumor for staging evaluation as well as intravesical gemcitabine to be administered. Procedure In Detail: The patient was consented in the preoperative holding area before being transfe rred to the operative suite where general anesthesia was induced. He was given Ancef 2 g IV antimicr obial prophylaxis, and pneumo boots were provided for DVT prophylaxis. He was placed in the lithotom y position, padded and secured to the table appropriately. His genitalia were prepped with Hibiclens and he was draped in standard fashion. The case was begun using a set of urethral sounds to dilate the meatus and fossa navicularis from 22 [place]ian up to 28 [place]ian. After this, I was able to use a vis ual obturator along with the 26-Slovenian bipolar resectoscope sheath to navigate beyond a bit of stenos is within the fossa navicularis and ultimately through the urethra and into the bladder and beyond so me prostatic urethral obstruction observed with some kmii-or-crnuwwio intravesical projection. Upon entry into the bladder, I noted a significant degree of superficial necrosis occupying the surface of the entirety of the tumor, which had been previously mentioned was extending from the right gian-tri gone across into the left lateral wall of the bladder, left anterior and left posterior wall of the b ladder. I thus by identifying the right ureteral orifice, began resection of the tumor starting at t he right gian-trigone and extending across the trigone, resecting the tumor out of the posterior ford g the way and ultimately continuing the resection into the region of the bladder neck, removing as mu ch of the tumors I can along the way. After initially debulking the superficial aspect of the fabric lay out worker ior component of the tumor, I utilized Ellik evacuation to remove a lot of that tumor and some blood, so I could further continue the resection. I continued the resection then extending from the fabric lay out worker ior wall of the bladder into the left lateral wall. The patient was paralyzed for this component of the procedure. I then continued the resection along the left lateral wall into the lateral anterior wall of the bladder on the left and continued resecting up till the bladder neck, removing all tumor visible from posterior to distal. I again Roya evacuated all tumor chips and again refilled the devendra dder continuing the resection involving the component of the tumor involving the bladder neck extendi ng from posterior to anterior within the left lateral wall of the bladder. After the majority of the superficial component of the tumor had been resected and all of the tissue was collected and sent fo r pathologic analysis as a bladder tumor, I then continued resection of the base of the tumor, taking care to resect continuously until normal-appearing tissue was encountered at the base of the resecti on. An extensive set of additional resection was required in order to achieve this across the entire ty of the surface where the tumor was located, but ultimately, I was pretty confident all visible bennie or had been resected, and I was basically into normal-appearing tissue, at this point. This tissue w as Roya evacuated from his bladder and sent as a second specimen called the base of tumor resection. During this point, I observed what appeared to be the ureteral orifice, which was obstructed, but u nresected at this point, I had resected all of the tumor from around the orifice. However, despite v isualization of what appeared to be the orifice, there was no efflux of urine, likely because of musc ularis invasion of the tumor obstructing it in the intramural ureter. Since I resected down several millimeters into the intramural wall of the bladder, this area was now exposed and sticking up. So, at the end, I separately resected the ureteral orifice in components and stages until I was able to v isualize a very dilated and hydronephrotic distal left ureter which did rapidly efflux clear yellow u rine once the orifice that was obstructed had been removed. I then ensured wide patency of the orifi ce and that no tumor was involving it as visualized cystoscopically. That final specimen was sent as resected left ureteral orifice. I then again surveyed the entirety of the site of resection and karel t about careful fulguration of any and all oozing vessels with the bladder largely decompressed and n o pressurized irrigation ongoing. Any additional nodular components of tissue within the muscularis were similarly resected, at this point, and again sent with the second specimen as the base of the tu mor resection. I, once completely satisfied with the nature of the resection and the hemostasis, the n retrograde filled his bladder with saline and removed the ureteroscope visualizing the urethra on t he way out. I then placed an 18-Slovenian coude tipped Renae catheter into his bladder and retrograde i nstilled gemcitabine 2 g in 50 cc normal saline with ease. A Ernestina clamp was applied to keep this wi thin his bladder, and it was attached to a leg bag for ease of subsequent decompression. He was then taken out of the lithotomy position, his genitalia were toweled off to avoid exposure to the chemoth erapy, and the Renae catheter outside the urethra and leg bag were placed inside of some fluid imperm eable drapery in the event of the spill. He was then taken out of the lithotomy position, awakened f rom general anesthesia, transferred to a stretcher, and then transferred to the recovery room in good condition. Complications: None. Discharge Disposition: He will be discharged with a urethral Renae catheter for the next 3 to 5 days and to be given a voiding trial either on Friday or Friday in the clinic. I will discharge him with several days of an antimicrobial while the extensive resected component of his bladder has an opport unity to heal and to minimize the risk of complicating infection. Subsequent followup should be esta blished in about 1 to 2 weeks' time to discuss the results of the pathology, and likely repeat ultrasonographic imagery will be obtained intervally to ensure resolutio n of the left-sided hydronephrosis. WR/MODL Voice ID: [id number] Report ID: [id number]
--- NOTE | 2023-12-10 13:50 | EKG ---
Test Date: 2023-12-09 Test Time: 16:55:19 Batch Mixing Truck Driver: DAPHNE MEASUREMENT RESULTS: Intervals: Rate: 69 OR: 182 QRSD: 86 QT: 452 QTc: 484 [place]: P: 53 OR: 182 QRS: 29 T: 44 INTERPRETIVE STATEMENTS: Sinus rhythm with occasional premature ventricular complexes Prolonged QT Abnormal ECG Compared to ECG 12/09/2023 16:54:46 Ventricular premature complex(es) now present Electronically Signed On 12-10-23 13:48:06 CDT by Elia Cornejo
--- NOTE | 2023-12-13 14:12 | EKG ---
Test Date: 2023-12-09 Test Time: 14:07:31 Hand Cutter: GIL MEASUREMENT RESULTS: Intervals: Rate: 65 SD: QRSD: 174 QT: 558 QTc: 580 [place]: P: SD: QRS: 70 T: 257 INTERPRETIVE STATEMENTS: Junctional Rhythm Left bundle branch block Abnormal ECG Compared to ECG 11/25/2023 18:36:01 Uncertain supraventricular rhythm now present Left bundle-branch block now present Sinus rhythm no longer present Right-axis deviation no longer present ST (T wave) deviation no longer present Early repolarization no longer present Electronically Signed On 12-13-23 14:09:38 CDT by Raul Ospina
== END 2023-12-09 17:42 | disposition home or self-care (01) ==
LOC: OR 09:46
PROVIDERS: ATTEND Urology
PROC: 3E0K705 Introduction of Other Antineoplastic into Genitourinary Tract, Via Natural or Artificial Opening (ICD-10-PCS; 2023-12-09)
PROC: 0TBB8ZZ Excision of Bladder, Via Natural or Artificial Opening Endoscopic (ICD-10-PCS; principal; 2023-12-09 11:45)
DX: C67.8 Malignant neoplasm of overlapping sites of bladder (principal); R31.0 Gross hematuria; I97.191 Other postprocedural cardiac functional disturbances following other surgery; I47.20 Ventricular tachycardia, unspecified; I95.89 Other hypotension; Z90.5 Acquired absence of kidney
CPT/HCPCS: 52240; 51720; 93005 ×2; 87088; 87086; 36415; 86900; 86850; 82550; 86901; 82947 ×2; 88305; 88307; 85018; 85014; 84484; J9201; J2704; J2710; J2001; J3010; J2405; J7030 ×2

== ENCOUNTER 2024-04-27 09:33 | Emergency (ER) | payer OTHER ==
[2024-04-27 10:19] LABS: Absolute Basophils 0.1 K/uL (0-0.5); Absolute Eosinophils 0.1 K/uL (0-0.5); Absolute Lymphocytes (CBC) 1.1 K/uL (0.7-4.9); Absolute Monocytes 0.8 K/uL (0.1-1.3); Absolute Neutrophil 9.3 K/uL (1.8-8.0); Basophils % 0.5 % (0-1.3); Eosinophils % 1.1 % (0-4.4); Hematocrit 32.5 % (39.6-49.0); Hemoglobin 10.4 g/dL (13.6-17.9); Lymphocytes % 9.5 % (15.3-44.8); MCH 29.7 pg (27.0-35.0); MCV 92.6 fL (80-100); MPV 8.6 fL (7.6-11.3); Monocytes % 7.3 % (3.3-12.3); Neutrophils % 81.6 % (41.7-73.7); Nucleated Red Blood Cells % 0.1 % (0-0); Platelets 185 thou/uL (152-406); Red Cell Distribution Width 15.9 % (12.1-15.2)
[2024-04-27 10:35] LABS: Albumin 2.8 g/dL (3.4-5.0); Bilirubin Total 0.4 mg/dL (0.2-1.0); Globulin 2.9 g/dL (2.3-3.5); Protein, Total 5.7 g/dL (6.4-8.2)
--- NOTE | 2024-04-27 12:13 | EDPHYS ---
Physician Documentation [facility] Name: Yony Torres Age: 74 yrs Sex: Male : 1950 Arrival Date: 04/27/2024 Time: 09:33 Bed 4 Private MD: ED Physician Kimo Nunez HPI: 04/27 09:45 This 74 yrs old Male presents to ER via Unassigned with complaints of Low Blood Sugar, ms3 General Weakness. 09:45 74-year-old male with diabetes presents to the emergency department via [place] [id number] [facility] for hypoglycemic episode resulting in slumping over in the bathroom. [facility] states patient slumped over on the toilet with an initial blood sugar reading of 40 mg/dL. His current blood sugar level is 172 mg/dL. He has not taken any insulin or diabetes medication since this morning. Patient denies pain. He states this has occurred one time in the past. . Historical: - Allergies: 09:47 No Known Allergies; db - PMHx: 09:47 Diabetes - IDDM; High Cholesterol; Hypertension; kidney disease; db - PSHx: 09:47 Right Kidney Removed; db - Immunization history:: Adult Immunizations unknown. - Infectious Disease History:: Denies. - Social history:: Smoking status: Patient denies any tobacco usage or history of. ROS: 09:45 Constitutional: Negative for fever, and chills. Cardiovascular: Negative for chest ms3 pain, and palpitations. Respiratory: Negative for shortness of breath, cough, wheezing, and pleuritic chest pain, Abdomen/GI: Negative for abdominal pain, nausea, vomiting, diarrhea, and constipation, MS/Extremity: Negative for injury and deformity, Skin: Negative for injury, rash, and discoloration, Exam: 09:45 Constitutional: This is a well developed, well nourished patient who is awake, alert, ms3 and in no acute distress. Chest/axilla: Normal chest wall appearance and motion. Nontender with no deformity. Cardiovascular: Regular rate and rhythm with a normal S1 and S2. No gallops, murmurs, or rubs. Normal PMI, no JVD. No pulse deficits. Respiratory: Lungs have equal breath sounds bilaterally, clear to auscultation and percussion. No rales, rhonchi or wheezes noted. No increased work of breathing, no retractions or nasal flaring. Abdomen/GI: Soft, non-tender, with normal bowel sounds. No distension or tympany. No guarding or rebound. No evidence of tenderness throughout. Skin: Warm, dry with normal turgor. Normal color with no rashes, no lesions, and no evidence of cellulitis. MS/ Extremity: Pulses equal, no cyanosis. Neurovascular intact. Full, normal range of motion. Vital Signs: 10:00 BP 140 / 76; Pulse 68; Resp 24; Temp 97.8; Pulse Ox 99% ; db 11:08 BP 137 / 70; Pulse 65; Resp 20; Pulse Ox 100% ; bp 12:26 BP 127 / 77; Pulse 68; Resp 16; Pulse Ox 99% ; bp MDM: 09:44 Medical Screening Exam initiated ms3 09:45 Differential diagnosis: hypoglycemic episode, Electrolyte abnormality. ms3 10:45 ED course: Discussed observation with patient and his family. Patient declines ms3 observation. Discussed a period of observation emergency department to ensure patient does not become hypoglycemic. Discussed GFR of 14 with patient and his and they state this is a known finding. Patient currently sees his head sugar reprocess operator, Dr Meng, and has had a GFR as low as 11. Patient states last night he felt his sugar was high and overcorrected causing him to have hypoglycemia.. 12:13 Data reviewed: vital signs, nurses notes, lab test result(s), and as a result, I will ms3 discharge patient. Consideration of Admission/Observation Escalation of care including admission/observation considered. Discussed observation with patient and he declines.. Historians other than the Patient: EMS: [facility]. Counseling: I had a detailed discussion with the patient and/or guardian regarding the historical points, exam findings, and any diagnostic results supporting the discharge/admit diagnosis, lab results, the need for outpatient follow up, to return to the emergency department if symptoms worsen or persist or if there are any questions or concerns that arise at home. ED course: Patient's mental status remains ANO x 4, patient's blood glucose level 127, patient tolerating p.o. Discussed observation with patient and patient declines. Patient to follow-up with his primary care physician in 2 to 3 days. Patient understands and agrees with plan. All questions were answered. Return precautions discussed include worsening symptoms, or any other concerns.. 04/27 09:45 Order name: CBC with Diff; Complete Time: 10:39 ms3 04/27 09:45 Order name: CMP; Complete Time: 10:39 ms3 04/27 10:23 Order name: Glucose, Ancillary Testing; Complete Time: 10:39 EDMS 04/27 11:45 Order name: Glucose, Ancillary Testing; Complete Time: 12:08 EDMS 04/27 09:45 Order name: Glucose Level; Complete Time: 10:22 ms3 04/27 09:45 Order name: PO challenge; Complete Time: 10:22 ms3 04/27 11:27 Order name: Glucose Level; Complete Time: 11:34 ms3 Administered Medications: No medications were administered Point of Care Testing: Blood Glucose: 10:01 Blood Glucose: 69 mg/dL; db 11:34 Blood Glucose: 128 mg/dL; db Ranges: Critical Glucose Levels:Adult <50 mg/dl or >400 mg/dl <40 mg/dl or >180 mg/dl Disposition Summary: 04/27/24 12:13 Discharge Ordered Notes: Location: Home ms3 Condition: Stable ms3 Diagnosis - Hypoglycemia, unspecified ms3 Followup: ms3 - With: Private Physician - When: 2 - 3 days - Reason: Recheck today's complaints Discharge Instructions: - Discharge Summary Sheet ms3 - Hypoglycemia ms3 Forms: - Medication Reconciliation Form ms3 - Antibiotic Education ms3 - Prescription Opioid Use ms3 - Patient Portal Instructions ms3 - Leadership Thank You Letter ms3 Signatures: Dispatcher [employer] Kimo Gomez DO DO ms3 Julieta Queen, RN RN db
--- NOTE | 2024-04-27 12:13 | ER ---
Nurse's Notes [facility] Name: Yony Torres Age: 74 yrs Sex: Male : 1950 Arrival Date: 04/27/2024 Time: 09:33 Bed 4 Private MD: Diagnosis: Hypoglycemia, unspecified Presentation: 04/27 09:43 Chief complaint: EMS states: FROM HOME FOUND SLUMPED OVER ON TOILET, PALE, COOL, db CLAMMY, BARELY RESPONDING. TOO WEAK TO HOLD SELF UP ON TOILET. BG 40 GIVEN D10 RECHECK BG 172 AOX4. Coronavirus screen: Client denies travel out of the [place] in the last 14 days. At this time, the client does not indicate any symptoms associated with coronavirus-19. Ebola Screen: Patient negative for fever greater than or equal to 101.5 degrees Fahrenheit, and additional compatible Ebola Virus Disease symptoms Patient denies exposure to infectious person. Patient denies travel to an Ebola-affected area in the 21 days before illness onset. No symptoms or risks identified at this time. Initial Sepsis Screen: Does the patient meet any 2 criteria? No. Patient's initial sepsis screen is negative. Does the patient have a suspected source of infection? No. Patient's initial sepsis screen is negative. Risk Assessment: Do you want to hurt yourself or someone else? Patient reports no desire to harm self or others. Onset of symptoms was April 27, 2024. 09:43 Method Of Arrival: EMS: [facility] db 09:43 Acuity: HECTOR 3 db Triage Assessment: 09:47 General: Appears in no apparent distress. comfortable, Behavior is calm, cooperative, db appropriate for age. Pain: Denies pain. Neuro: Level of Consciousness is awake, alert, obeys commands, Oriented to person, place, time, situation, Speech is normal. Respiratory: Airway is patent Respiratory effort is even, unlabored, Respiratory pattern is regular, symmetrical. Historical: - Allergies: 09:47 No Known Allergies; db - PMHx: 09:47 Diabetes - IDDM; High Cholesterol; Hypertension; kidney disease; db - PSHx: :47 Right Kidney Removed; db - Immunization history:: Adult Immunizations unknown. - Infectious Disease History:: Denies. - Social history:: Smoking status: Patient denies any tobacco usage or history of. Screenin:[facility] ED Fall Risk Assessment (Adult) History of falling in the last 3 months, db including since admission Yes- single mechanical fall (1 pt) Confusion or Disorientation No (0 pts) Intoxicated or Sedated No (0 pts) Impaired Gait No (0 pts) Mobility Assist Device Used No (0 pt) Altered Elimination No (0 pt) Score/Fall Risk Level 0 - 2 = Low Risk Oriented to surroundings, Maintained a safe environment. Abuse screen: Denies threats or abuse. Denies injuries from another. Nutritional screening: No deficits noted. Tuberculosis screening: No symptoms or risk factors identified. Assessment: 09:57 Reassessment: SEE TRIAGE FOR INITIAL ASSESSMENT. db 10:19 Reassessment: Patient appears in no apparent distress at this time. Patient and/or db family updated on plan of care and expected duration. Pain level reassessed. Patient is alert, oriented x 3, equal unlabored respirations, skin warm/dry/pink. PATIENT PROVIDED FOOD, MILK, AND JUICE. NOTIFIED DR. RIVAS OF PATIENT GLUCOSE 69. 11:08 Reassessment: Patient appears in no apparent distress at this time. Patient is alert, bp oriented x 3, equal unlabored respirations, skin warm/dry/pink. Vital Signs: 10:00 BP 140 / 76; Pulse 68; Resp 24; Temp 97.8; Pulse Ox 99% ; db 11:08 BP 137 / 70; Pulse 65; Resp 20; Pulse Ox 100% ; bp 12:26 BP 127 / 77; Pulse 68; Resp 16; Pulse Ox 99% ; bp ED Course: 09:42 Patient arrived in ED. db 09:43 Arm band placed on Patient placed in an exam room. db 09:44 Kimo Rivas DO is Attending Physician. ms3 09:47 Triage completed. db 09:56 Julieta Queen, RN is Primary Nurse. db 09:56 Maintain EMS IV. Dressing intact. Good blood return noted. Site clean \T\ dry. Gauge \T\ db site: 20 G RIGHT WRIST. 10:17 Initial lab(s) drawn, by me, sent to lab. db 10:21 Patient has correct armband on for positive identification. Bed in low position. Call db light in reach. Side rails up X 1. Placed in gown. Client placed on continuous cardiac and pulse oximetry monitoring. NIBP monitoring applied. pvc monitor on. Pulse ox on. NIBP on. Warm blanket given. Pillow given. 12:27 No provider procedures requiring assistance completed. IV discontinued, intact, bp bleeding controlled, No redness/swelling at site. Pressure dressing applied. Administered Medications: No medications were administered Medication: 10:21 VIS not applicable for this client. db Point of Care Testing: Blood Glucose: 10:01 Blood Glucose: 69 mg/dL; db 11:34 Blood Glucose: 128 mg/dL; db Ranges: Outcome: 12:13 Discharge ordered by ms3 12:27 Discharged to home ambulatory, with family, bp 12:27 Condition: stable 12:27 Discharge instructions given to patient, family, Instructed on discharge instructions, follow up and referral plans. Demonstrated understanding of instructions, follow-up care, 12:27 Patient left the ED. bp Signatures: Nehemiah Menon, RN RN bp Kimo Rivas DO DO ms3 Julieta Queen, RN RN db Corrections: (The following items were deleted from the chart) 10:18 09:56 Maintain EMS IV. Dressing intact. Good blood return noted. Site clean \T\ dry. db Gauge \T\ site: 20 G LAC. db
[2024-04-27 12:33] VITALS: TEMP 97.8
[2024-04-27 12:35] VITALS: BP 127/77; O2SAT 99
== END 2024-04-27 12:27 | disposition home or self-care (01) ==
LOC: ER 09:33
DX: E11.649 Type 2 diabetes mellitus with hypoglycemia without coma (principal); I10 Essential (primary) hypertension; Z90.5 Acquired absence of kidney
CPT/HCPCS: 36415; 80053; 82947; 85025

== ENCOUNTER 2024-08-05 07:23 | Day surgery (SDC) | payer OTHER ==
[2024-08-05] MEDS: SODIUM CHLORIDE 0.9% 10ML INJ IV ONE (08:00)
[2024-08-05] MEDS: COSYNTROPIN 0.25 MG VIAL IV ONE (08:00)
[2024-08-05 08:28] VITALS: TEMP 98.6; BMI 22.5
[2024-08-05 10:13] VITALS: BP 145/86; O2SAT 97
== END 2024-08-05 09:43 | disposition home or self-care (01) ==
LOC: DS 07:23
PROVIDERS: ATTEND Internal Medicine
DX: C67.8 Malignant neoplasm of overlapping sites of bladder (principal); I10 Essential (primary) hypertension; E11.8 Type 2 diabetes mellitus with unspecified complications; Z90.5 Acquired absence of kidney
CPT/HCPCS: 36415; 82024; 82533; A4216; J0834